=== PATIENT | male | born 1955 | race Caucasian/White ===

== ENCOUNTER → 2018-06-24 | Outpatient (CLI) | payer OTHER ==
--- NOTE | 2018-06-25 07:57 | US ---
EXAMINATION TYPE: US thyroid st tissue head/neck DATE OF EXAM: 06/24/2018 COMPARISON: NONE CLINICAL HISTORY: R22 Lump left side of neck/cheek. Palpable lump left lateral cheek x many years TECHNIQUE/FINDINGS: Targeted ultrasound in the region of the patient's palpable abnormality over the left parotid region was performed. Solid lesion left lateral cheek at area of palpable= 6.2 x 2.8 x 5.5 cm, minimal amoun t of internal vascular flow. This appears well-circumscribed and heterogenous in echotexture. IMPRESSION: At the palpable abnormality in the region of the parotid gland there is a solid 6.[address] neck w con is recommended for further evaluation.
== END | disposition home or self-care (01) ==
LOC: RADUSWWP 16:05
PROVIDERS: ATTEND Family Medicine
DX: K11.8 Other diseases of salivary glands (principal)
CPT/HCPCS: 76536

== ENCOUNTER → 2018-06-25 | Outpatient (CLI) | payer OTHER ==
[2018-06-25 14:02] LABS: Anion Gap 10 mmol/L; Blood Urea Nitrogen 25 mg/dL (9-20); Carbon Dioxide 27 mmol/L (22-30); Chloride 102 mmol/L (98-107); Potassium 5.1 mmol/L (3.5-5.1); Sodium 139 mmol/L (137-145)
[2018-06-25 14:32] LABS: Prostate Specific Antigen 1.74 ng/mL (0.00-4.00)
--- NOTE | 2018-06-25 14:54 | CT ---
EXAMINATION TYPE: CT soft tissue neck w con DATE OF EXAM: 06/25/2018 COMPARISON: HISTORY: benign neoplasm of parotid gland CT DLP: 755 mGycm CONTRAST: CT scan of the neck is performed with IV Contrast, patient injected with 100 ml mL of Isovue 300. Contrast enhanced CT of the neck was performed from the skull base through the lung apices. AIRWAY: The supraglottic, glottic, and subglottic portions of the airway appear patent and free of mass. SALIVARY GLANDS: Fat-containing mass adjacent to or arising from the superficial lobe of the left par otid gland measuring 6.7 x 5.1 x 3.5 cm. Internal foci of nodularity identified. Findings likely refl ect lipoma although liposarcoma is difficult to exclude. The right parotid gland is unremarkable and free of nodule. There is mass effect upon the adjacent masseter musculature as well as a portions of the parotid gland. The submandibular are free of mass or inflammatory process. THYROID GLAND: No nodules or masses seen. LYMPH NODES: No adenopathy seen greater than 1cm. LUNG APICES: No nodule or mass is seen. OTHER: Vascular structures are patent. Degenerative changes are noted of the cervical spine. No absc ess seen. Mild mucosal thickening ethmoid air cells. IMPRESSION: 1.Fat-containing mass adjacent to or arising from the superficial lobe of the left parotid gland stephani uring 6.7 x 5.1 x 3.5 cm. Internal foci of nodularity identified. 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
[2018-06-25 22:41] LABS: Hemoglobin A1C 9.5 % (4.0-6.0)
== END ==
LOC: RADCTMAIN 12:58
PROVIDERS: ATTEND Family Medicine
DX: D11.0 Benign neoplasm of parotid gland (principal); I10 Essential (primary) hypertension; Z79.899 Other long term (current) drug therapy
CPT/HCPCS: 84153; 80051; 82565; 84443; 84520; 83036; 70491; 36415; Q9967

== ENCOUNTER 2018-09-15 07:51 | Day surgery (SDC) | payer OTHER, MEDICARE ==
[2018-09-13 08:38] VITALS: BMI 27.8
[~2018-09-15 07:51] MED LIST: DEXAMETHASONE SOD PHOSPHATE 10 MG/ML 1 ML VIAL IV ONE; DEXAMETHASONE SOD PHOSPHATE 4 MG/ML 1 ML VIAL IV ONE; FAMOTIDINE 20 MG/2 ML VIAL IV ONE; HYDROmorphone 0.5 MG/0.5 ML SYRINGE IVP PRN; LACTATED RINGERS 1,000 ML IV SCH; LIDOCAINE 1% 20 ML VIAL (10MG/ML) FOR IV START INTRADERMA PRN; MIDAZOLAM (PF) 2 MG/2 ML VIAL IV PRN; ONDANSETRON 4 MG/2 ML VIAL IVP ONE; SCOPOLAMINE 1.5MG/72HR PATCH TRANSDERM ONE; ceFAZolin 1,000 MG in DEXTROSE/WATER 1 50ML.BAG IV ONE
[2018-09-15 09:29] LABS: Glucose,Whole Blood 276 mg/dL (75-99)
[2018-09-15] MEDS ORDERED: INSULIN ASPART 100 UNIT/ML 1 ML 10 ML VIAL SQ ONE (09:35)
[2018-09-15] MEDS ORDERED: MIDAZOLAM 2 MG/2 ML VIAL ONE (09:55)
[2018-09-15] MEDS ORDERED: fentaNYL (PF) 50 MCG/ML 2 ML AMP ONE (09:55)
[2018-09-15] MEDS ORDERED: PROPOFOL 10 MG/ML 20 ML VIAL IV ONE (09:55)
[2018-09-15] MEDS ORDERED: LIDOCAINE 1% INJ 10MG/ML (20 ML MDV) ONE (09:55)
[2018-09-15] MEDS ORDERED: SUCCINYLCHOLINE CHLORIDE 100 MG/5 ML SYR IV ONE (09:55)
[2018-09-15] MEDS ORDERED: LIDOCAINE 1%-EPI 1:100,000 20 ML VIAL SQ ONE ×2 (10:23)
[2018-09-15] MEDS ORDERED: BACITRACIN 500 UNIT/GM OINT 28.4 GM TUBE TOPICAL ONE (11:02)
--- NOTE | 2018-09-15 11:07 | P.OP ---
Date of Procedure: 09/15/18 Preoperative Diagnosis: Left cheek lipoma Postoperative Diagnosis: Same Procedure(s) Performed: Excision left cheek lipoma 6.5 x 5.5 cm with facial nerve identification and dissection and complex closure and with EMG facial nerve monitoring Anesthesia: RAN Surgeon: Jose Antonio Sky Estimated Blood Loss (ml): 5 Pathology: other (Left cheek mass) Condition: stable Disposition: PACU Indications for Procedure: This is a 62-year-old white male with a long history of left cheek mass. He's had computed tomography scan which is consistent with a large lipoma Operative Findings: There is a large lipoma 6.5 x 5.5 cm of the left lower cheek. This was down to the muscular layer. The facial nerves were able to be visualized and dissected and left intact Description of Procedure: The patient was brought in the operative suite and placed in a supine position. The patient underwent induction of general anesthesia with oral endotracheal intubation without difficulty. The patient was prepped and draped in usual aseptic fashion. 1% lidocaine with 1-100,000 epinephrine was infused subcutaneously overlying the mass at the incision site. This was left to work for 7 minutes vasoconstrictive effect. An incision was made over the mass in the direction of the right skin tension lines and carried sharply through the skin and subcutaneous tissue to the mass itself. This appeared to be a lipoma which appeared well encapsulated. This was then dissected off the lateral aspect and was dissected from lateral to medial. Once the medial aspect was identified superiorly and inferiorly the medial aspect was dissected from posterior to anterior identifying the lower divisions of the facial nerve. To the mass which were dissected from the overlying mass. Mass was excised grossly entirely. Note the NIM II facial monitor had been positioned to monitor the lower lip as well as the upper lip divisions of the facial nerve preoperatively and was working well. At the conclusion of the dissection the lower divisions of the facial nerve were stimulated 0.5 mA with good mobility of the upper and lower lips. Excellent hemostasis was noted. The wound was copiously irrigated sterile normal saline and hemostasis remained good. Due to the large size of this lesion there was redundant skin which was excised requiring a more complex closure in the deep subcutaneous layer and superficial subcutaneous layer closures with inverted interrupted 5-0 Vicryl suture and skin closed with running locking 5-0 Prolene suture. Bacitracin ointment and a sterile dressing were placed. The patient tolerated the procedure well and was extubated in the operating suite and transferred to postop recovery area in satisfactory condition.
[2018-09-15 11:13] VITALS: TEMP 96.8
[2018-09-15 11:30] VITALS: RESP 18
[2018-09-15] MEDS ORDERED: INSULIN REGULAR 100 UNIT/ML VIAL SQ ONE (11:32)
[2018-09-15 11:34] LABS: Glucose,Whole Blood 234 mg/dL (75-99)
[2018-09-15] MEDS ORDERED: LACTATED RINGERS 1,000 ML IV ONE (11:44)
[2018-09-15 12:21] VITALS: BP 121/70; PULSE 65
== END 2018-09-15 13:20 | disposition home or self-care (01) ==
LOC: OR 07:51
PROVIDERS: ATTEND Otolaryngology
DX: D17.0 Benign lipomatous neoplasm of skin and subcutaneous tissue of head, face and neck (principal); J30.1 Allergic rhinitis due to pollen; E11.9 Type 2 diabetes mellitus without complications; Z72.0 Tobacco use; Z79.84 Long term (current) use of oral hypoglycemic drugs
CPT/HCPCS: 88304; 21012; J2250; J1100; J2405; J2001; J3010; J0690; J0330; J2704

== ENCOUNTER 2019-09-30 11:19 | Observation (INO) | payer OTHER, MEDICARE ==
[2019-09-30] MEDS: FUROSEMIDE 10 MG/ML 4 ML VIAL IV SCH (14:24)
[2019-09-30] MEDS: HYDROcodone/APAP 5-325MG 1 EACH TAB PO PRN ×2 (14:25→20:35)
[2019-09-30 14:55] LABS: Basophils # (A) 0.1 k/uL (0-0.2); Basophils % (A) 1 %; Eosinophils # (A) 0.1 k/uL (0-0.7); Eosinophils % (A) 1 %; HCT 47.9 % (39.0-53.0); HGB 15.6 gm/dL (13.0-17.5); Lymphocytes # (A) 1.7 k/uL (1.0-4.8); Lymphocytes % (A) 20 %; MCH 30.2 pg (25.0-35.0); MCHC 32.7 g/dL (31.0-37.0); MCV 92.5 fL (80.0-100.0); Mean Platelet Volume 9.8; Monocytes # (A) 0.6 k/uL (0-1.0); Monocytes % (A) 7 %; Neutrophils # (A) 5.9 k/uL (1.3-7.7); Neutrophils % (A) 69 %; Platelet Count 206 k/uL (150-450); RBC 5.17 m/uL (4.30-5.90); RDW 13.9 % (11.5-15.5); WBC 8.5 k/uL (3.8-10.6)
[2019-09-30 15:05] LABS: ALT 20 U/L (4-49); AST 19 U/L (17-59); African American GFR (CKD) >90 (>60 ml/min/1.73 sqM); Albumin 3.5 g/dL (3.5-5.0); Alkaline Phosphatase 106 U/L (38-126); Anion Gap 6 mmol/L; Blood Urea Nitrogen 19 mg/dL (9-20); Calcium 8.5 mg/dL (8.4-10.2); Carbon Dioxide 27 mmol/L (22-30); Chloride 104 mmol/L (98-107); Glucose 154 mg/dL (74-99); Non-African American GFR(CKD) >90 (>60 ml/min/1.73 sqM); Potassium 4.3 mmol/L (3.5-5.1); Sodium 137 mmol/L (137-145); Total Bilirubin 0.7 mg/dL (0.2-1.3); Total Protein 6.2 g/dL (6.3-8.2)
--- NOTE | 2019-09-30 15:49 | US ---
EXAMINATION TYPE: US venous doppler duplex LE DATE OF EXAM: 09/30/2019 3:25 PM COMPARISON: NONE CLINICAL HISTORY: edema. SIDE PERFORMED: TECHNIQUE: The lower extremity deep venous system is examined utilizing real time linear array sonog karl with graded compression, doppler sonography and color-flow sonography. VESSELS IMAGED: External Iliac Vein (EIV) Common Femoral Vein Deep Femoral Vein Greater Saphenous Vein * Femoral Vein Popliteal Vein Small Saphenous Vein * Proximal Calf Veins (* superficial vessels) Right Leg: Negative for DVT Unable to compress mid and distal femoral vein due to patient tolerance. Left Leg: Negative for DVT Grayscale, color doppler, spectral doppler imaging performed of the deep veins of the bilateral lower extremities. There is normal flow and vascular waveforms. IMPRESSION: Slightly suboptimal as patient does not tolerate complete right lower extremity compress ion. There is asymmetric mild to moderate subcutaneous edema in the right lower extremity beginning p roximal popliteal level noted. No ultrasound evidence for acute DVT in either lower extremity.
[2019-09-30] MEDS: GLIMEPIRIDE 4 MG TAB PO SCH (17:20)
[2019-09-30] MEDS: REPAGLINIDE 1 MG TAB PO SCH (17:20)
--- NOTE | 2019-09-30 18:21 | XR ---
EXAMINATION TYPE: XR chest 2V DATE OF EXAM: 09/30/2019 COMPARISON: NONE HISTORY: Short of breath. Heart failure. TECHNIQUE: FINDINGS: There is some coarsening of the interstitial lung markings. There is no pleural effusion. T horacic aorta is atheromatous. There are no hilar masses. Bony thorax is intact. IMPRESSION: Mild pulmonary fibrosis. No obvious heart failure. Atheromatous aorta.
[2019-09-30 19:42] VITALS: PULSE 71
[2019-09-30] MEDS: ATENOLOL 25 MG TAB PO SCH (20:36)
[2019-10-01] MEDS: FUROSEMIDE 10 MG/ML 4 ML VIAL IV SCH (02:59)
[2019-10-01] MEDS: HYDROcodone/APAP 5-325MG 1 EACH TAB PO PRN ×2 (03:18→09:25)
[2019-10-01 06:37] VITALS: BP 117/74; RESP 17; TEMP 97.6
[2019-10-01 07:29] LABS: Glucose,Whole Blood 129 mg/dL (75-99)
[2019-10-01 08:25] LABS: Basophils # (A) 0.1 k/uL (0-0.2); Basophils % (A) 1 %; Eosinophils # (A) 0.1 k/uL (0-0.7); Eosinophils % (A) 1 %; HCT 46.5 % (39.0-53.0); HGB 15.7 gm/dL (13.0-17.5); Lymphocytes # (A) 1.6 k/uL (1.0-4.8); Lymphocytes % (A) 20 %; MCH 30.6 pg (25.0-35.0); MCHC 33.7 g/dL (31.0-37.0); MCV 90.8 fL (80.0-100.0); Mean Platelet Volume 9.7; Monocytes # (A) 0.6 k/uL (0-1.0); Monocytes % (A) 8 %; Neutrophils # (A) 5.6 k/uL (1.3-7.7); Neutrophils % (A) 69 %; Platelet Count 240 k/uL (150-450); RBC 5.13 m/uL (4.30-5.90); RDW 13.9 % (11.5-15.5); WBC 8.1 k/uL (3.8-10.6)
[2019-10-01 08:36] LABS: ALT 20 U/L (4-49); AST 18 U/L (17-59); African American GFR (CKD) >90 (>60 ml/min/1.73 sqM); Albumin 3.6 g/dL (3.5-5.0); Alkaline Phosphatase 107 U/L (38-126); Anion Gap 7 mmol/L; Blood Urea Nitrogen 17 mg/dL (9-20); Calcium 8.9 mg/dL (8.4-10.2); Carbon Dioxide 29 mmol/L (22-30); Chloride 102 mmol/L (98-107); Glucose 127 mg/dL (74-99); Non-African American GFR(CKD) >90 (>60 ml/min/1.73 sqM); Potassium 4.2 mmol/L (3.5-5.1); Sodium 138 mmol/L (137-145); Total Bilirubin 1.1 mg/dL (0.2-1.3); Total Protein 6.6 g/dL (6.3-8.2)
[2019-10-01] MEDS: ATENOLOL 25 MG TAB PO SCH (08:40)
[2019-10-01] MEDS: REPAGLINIDE 1 MG TAB PO SCH ×2 (08:40→13:00)
[2019-10-01] MEDS: GLIMEPIRIDE 4 MG TAB PO SCH (08:40)
[2019-10-01] MEDS ORDERED: MONTELUKAST 10 MG TAB PO SCH (09:00)
[2019-10-01] MEDS ORDERED: LORATADINE 10 MG TAB PO SCH (09:00)
[2019-10-01 11:31] LABS: Glucose,Whole Blood 167 mg/dL (75-99)
--- NOTE | 2019-10-01 12:18 | HP ---
HISTORY AND PHYSICAL A 63-year-old white male admitted with significant right leg swelling, greater than left leg swelling status post injury 1-2 weeks ago. Large amount of bruising in the leg. The right leg is twice as large as the other leg. We admitted him with some diastolic CHF and start him on IV Lasix and do ultrasound to rule out PE which was negative. ACTIVE MEDICATIONS: Includes Tenormin 25 b.i.d., Lasix 40 IV q.12, Amaryl 400 mg a.c. b.i.d.. He takes [place] 5/325 every 6 hours, Claritin 10 daily, Singulair 10 daily, Prandin 1 mg a.c. t.i.d. REVIEW OF SYSTEMS: Negative except he cannot walk on his right leg. He says he was at [facility], needed x- rays on his hips, which showed no fracture. PAST MEDICAL HISTORY: Diabetes, hypertension, diastolic CHF, allergic rhinitis. Temperature 98.2, pulse is 70s, respiratory 17 to 18, blood pressure 117 to 146/70s to 80s, 95% on room air. CARDIOVASCULAR: S1, S2. LUNGS: Show decreased breath sounds x4. HEMATOLOGY: Negative Homans. PSYCH: Fair mood and affect. MUSCULOSKELETAL: Shows limited ambulation on the right leg due to severe pain and swelling. He has large hematoma with bruising up and down his entire leg. Right leg is twice as big as his left leg. He is able to lift both legs off the floor though. ASSESSMENT: 1. Diastolic congestive heart failure, acute on chronic. 2. Chronic obstructive pulmonary disease. 3. Diabetes mellitus. 4. Hypertension. 5. Right leg injury with large hematoma to the entire leg. The patient will be discharged home on oral medication to follow up as an outpatient. MMODL / IJN: [id number] /
--- NOTE | 2019-10-02 13:59 | ECHOF ---
Referral Reason:chf MEASUREMENTS -------- HEIGHT: 180.3 cm WEIGHT: 90.7 kg BP: 154/82 IVSd: 1.4 cm (0.6 - 1.1) LVIDd: 5.1 cm (3.9 - 5.3) LVPWd: 1.3 cm (0.6 - 1.1) IVSs: 1.8 cm LVIDs: 4.0 cm LVPWs: 1.9 cm RVIDd: 4.1 cm (< 3.3) LAESV Index (A-L): 27.70 ml/m Ao Diam: 3.9 cm (2.0 - 3.7) LA Diam: 4.6 cm (2.7 - 3.8) AV Cusp: 2.1 cm (1.5 - 2.6) EPSS: 1.4 cm MV E Brooks: 0.91 m/s MV DecT: 287 ms MV A Brooks: 1.13 m/s MV E/A Ratio: 0.81 RAP: 20.00 mmHg RVSP: 30.12 mmHg MV EF SLOPE: 52.23 mm/s (70 - 150) MV EXCURSION: 12.65 mm (> 18.000) FINDINGS -------- Sinus rhythm. This was a technically adequate study. The left ventricular size is normal. There is mild concentric left ventricular hypertrophy. Overa ll left ventricular systolic function is low-normal with, an EF between 50 - 55 %. The diastolic fi lling pattern is normal for the age of the patient 16.83. The right ventricle is moderately enlarged. Normal LA size by volume 22+/-6 ml/m2. The right atrium is moderately enlarged. Interatrial and interventricular septum intact. There is no evidence of aortic regurgitation. There is no evidence of aortic stenosis. Jiru-uh-fahadkmw mitral regurgitation is present. Mild tricuspid regurgitation present. There is borderline pulmonary artery hypertension. The righ t ventricular systolic pressure, as measured by Doppler, is 30.12mmHg. There is no pulmonic regurgitation present. The aortic root size is normal. The inferior vena cava is dilated with poor inspiratory collapse which is consistent with estimated r ight atrial pressure of 20 mmHg. There is no pericardial effusion. CONCLUSIONS -------- 1. Sinus rhythm. 2. This was a technically adequate study. 3. The left ventricular size is normal. 4. There is mild concentric left ventricular hypertrophy. 5. Overall left ventricular systolic function is low-normal with, an EF between 50 - 55 %. 6. The diastolic filling pattern is normal for the age of the patient 16.83 7. The right ventricle is moderately enlarged. 8. Normal LA size by volume 22+/-6 ml/m2. 9. The right atrium is moderately enlarged. 10. Interatrial and interventricular septum intact. 11. There is no evidence of aortic regurgitation. 12. There is no evidence of aortic stenosis. 13. Enhk-uh-qbttculp mitral regurgitation is present. 14. Mild tricuspid regurgitation present. 15. There is borderline pulmonary artery hypertension. 16. The right ventricular systolic pressure, as measured by Doppler, is 30.12mmHg. 17. There is no pulmonic regurgitation present. 18. The aortic root size is normal. 19. The inferior vena cava is dilated with poor inspiratory collapse which is consistent with estimat ed right atrial pressure of 20 mmHg. 20. There is no pericardial effusion. P[employer]AT[employer]IP [employer]KER: Tika Martino RDCS
== END 2019-10-01 13:12 | disposition home or self-care (01) ==
LOC: 6NMEDSUR 11:35 → INTOOBSV 11:35 → UNDODISIN 10-01 13:12
PROVIDERS: ADMIT Family Medicine; ATTEND Family Medicine
DX: I11.0 Hypertensive heart disease with heart failure (principal); I50.33 Acute on chronic diastolic (congestive) heart failure; E11.9 Type 2 diabetes mellitus without complications; J44.9 Chronic obstructive pulmonary disease, unspecified; J84.10 Pulmonary fibrosis, unspecified; J30.9 Allergic rhinitis, unspecified; S80.10XA Contusion of unspecified lower leg, initial encounter; X58.XXXA Exposure to other specified factors, initial encounter
CPT/HCPCS: 96376; 96374; 93306; 93005; 85379; 83880; 80053 ×2; 85025 ×2; 71046; 93970; G0379; G0378 ×2; J1940 ×2

== ENCOUNTER → 2019-10-05 | Outpatient (CLI) | payer OTHER, MEDICARE ==
[2019-10-05 16:43] LABS: African American GFR (CKD) >90 (>60 ml/min/1.73 sqM); Blood Urea Nitrogen 21 mg/dL (9-20); Non-African American GFR(CKD) >90 (>60 ml/min/1.73 sqM)
--- NOTE | 2019-10-05 21:25 | CT ---
EXAMINATION TYPE: CT chest w con DATE OF EXAM: 10/05/2019 COMPARISON: Chest x-ray 5 days ago. HISTORY: SOB CT DLP: 501.6 mGycm. Automated Exposure Control for Dose Reduction was Utilized. TECHNIQUE: CT scan of the thorax is performed following with IV Contrast, patient injected with 100 mL of Isovue 300. FINDINGS: LUNGS: Mild to moderate underlying emphysematous change most prominent in lung apices is seen with mi ld to moderate biapical pleural/parenchymal scarring. In addition there is 8 x 7 mm right upper lobe pulmonary nodule axial image 15. There is a 9 x 6 mm left lower lobe posterior nodule axial image 46. There is mild to moderate linear scarring and/or atelectasis in both bases near diaphragm. No pleura l effusion or pneumothorax is evident bilaterally. MEDIASTINUM: There are no greater than 1 cm hilar or mediastinal lymph nodes. No cardiomegaly or pe ricardial effusion is seen. OTHER: Slight S-shaped scoliotic curvature with mild to moderate multilevel spurring in the spine. IMPRESSION: Mild to moderate emphysematous change with fairly moderate scattered fibrosis. 2 nodules are noted as detailed above. Follow-up advised as per Fleischner Society recommendations. Multiple solid nodules >6 mm (>100 mm3) * low-risk patients: CT at 3-6 months, then consider CT at 18-24 months * high-risk patients: CT at 3-6 months, then CT at 18-24 months
== END | disposition home or self-care (01) ==
LOC: RADCTMAIN 16:05
PROVIDERS: ATTEND Family Medicine
DX: J43.9 Emphysema, unspecified (principal); J84.10 Pulmonary fibrosis, unspecified; R91.8 Other nonspecific abnormal finding of lung field; R06.02 Shortness of breath
CPT/HCPCS: 82565; 84520; 71260; 36415; Q9967

== ENCOUNTER 2019-10-06 13:07 | Emergency (ER) | payer MEDICARE, OTHER ==
[2019-10-06 13:12] VITALS: TEMP 97.5
[2019-10-06] MEDS ORDERED: ONDANSETRON 4 MG/2 ML VIAL IVP STA (13:33)
[2019-10-06] MEDS ORDERED: HYDROmorphone 1 MG/ML 1 ML SYRINGE IVP STA (13:33)
[2019-10-06 13:41] LABS: Basophils # (A) 0.2 k/uL (0-0.2); Basophils % (A) 2 %; Eosinophils # (A) 0.1 k/uL (0-0.7); Eosinophils % (A) 1 %; HCT 47.8 % (39.0-53.0); HGB 16.3 gm/dL (13.0-17.5); Lymphocytes # (A) 1.3 k/uL (1.0-4.8); Lymphocytes % (A) 16 %; MCH 31.1 pg (25.0-35.0); MCHC 34.1 g/dL (31.0-37.0); MCV 91.2 fL (80.0-100.0); Mean Platelet Volume 9.1; Monocytes # (A) 0.6 k/uL (0-1.0); Monocytes % (A) 7 %; Neutrophils # (A) 5.9 k/uL (1.3-7.7); Neutrophils % (A) 72 %; Platelet Count 281 k/uL (150-450); RBC 5.24 m/uL (4.30-5.90); RDW 13.7 % (11.5-15.5); WBC 8.2 k/uL (3.8-10.6)
[2019-10-06 13:46] LABS: INR 1.1 (<1.2); Partial Thromboplastin Time 24.8 sec (22.0-30.0); Prothrombin Time 11.4 sec (9.0-12.0)
[2019-10-06 13:59] LABS: ALT 19 U/L (4-49); AST 17 U/L (17-59); African American GFR (CKD) >90 (>60 ml/min/1.73 sqM); Albumin 3.8 g/dL (3.5-5.0); Alkaline Phosphatase 125 U/L (38-126); Anion Gap 8 mmol/L; Blood Urea Nitrogen 21 mg/dL (9-20); Carbon Dioxide 25 mmol/L (22-30); Chloride 104 mmol/L (98-107); Glucose 165 mg/dL (74-99); Non-African American GFR(CKD) >90 (>60 ml/min/1.73 sqM); Potassium 4.6 mmol/L (3.5-5.1); Sodium 137 mmol/L (137-145); Total Protein 7.1 g/dL (6.3-8.2)
--- NOTE | 2019-10-06 14:18 | ED ---
Fall HPI - General Chief Complaint: Fall Stated Complaint: fall Time Seen by Provider: 10/06/19 13:13 Source: patient, RN notes reviewed Mode of arrival: ambulatory Limitations: no limitations - History of Present Illness Initial Comments: This a 63-year-old male presents emergency Department chief complaint of right leg, right foot pain. Patient states that he had a fall on 09/15/2019. Patient states that he was seen at [facility] had x-rays of his hip because he complained of hip pain. Patient states x-rays were negative patient had pers istent right leg pain. He had a recent hospitalization to rule out possible PE, DVT or congestive heart failure he states that every came back normal and he was discharged she is currently taking gabapentin and [place] states is not cutting the pain at this time. He states is continuation of bruising, swelling and redness. He reports no fevers or chills. Patient has no complaints of paresthesias no bowel, bladder incontinence or retention. Patient did contact his PCP who advised him come back to the emergency Department - Related Data Home Medications Medication Instructions Recorded Confirmed Atenolol [Tenormin] 25 mg PO BID 09/30/19 09/30/19 Glimepiride [Amaryl] 4 mg PO BID 09/30/19 09/30/19 Ibuprofen [Motrin] 800 mg PO Q6H PRN 09/30/19 09/30/19 Loratadine [Claritin] 10 mg PO DAILY 09/30/19 09/30/19 Montelukast [Singulair] 10 mg PO DAILY 09/30/19 09/30/19 Repaglinide [Prandin] 1 mg PO AC-TID 09/30/19 09/30/19 Previous Rx's Medication Instructions Recorded Cephalexin [Keflex] 500 mg PO Q6HR #28 cap 10/06/19 HYDROcodone/APAP 10-325MG [[place] 1 tab PO Q6H PRN #12 tab 10/06/19 10-325] Ibuprofen [Motrin] 800 mg PO Q6HR #30 tab 10/06/19 Allergies Allergy/AdvReac Type Severity Reaction Status Date / Time No Known Allergies Allergy Verified 10/06/19 13:12 Review of Systems ROS Statement: Those systems with pertinent positive or pertinent negative responses have been documented in the HPI. ROS Other: All systems not noted in ROS Statement are negative. Past Medical History Past Medical History: Diabetes Mellitus, Hypertension Additional Past Medical History / Comment(s): NIDDM type II, hiatal hernia History of Any Multi-Drug Resistant Organisms: None Reported Additional Past Surgical History / Comment(s): Excision L lacial lipoma Past Anesthesia/Blood Transfusion Reactions: No Reported Reaction Past Psychological History: No Psychological Hx Reported Smoking Status: Current every day smoker Past Alcohol Use History: None Reported Past Drug Use History: None Reported - Past Family History Mother Family Medical History: Cancer Additional Family Medical History / Comment(s): Mother of lung cancer. She was a nonsmoker. Father History Unknown: Yes General Exam Limitations: no limitations General appearance: alert, in no apparent distress Head exam: Present: atraumatic, normocephalic, normal inspection Eye exam: Present: normal appearance, PERRL, EOMI. Absent: scleral icterus, conjunctival injection, periorbital swelling ENT exam: Present: mucous membranes moist. Absent: normal oropharynx (Edentulous) Respiratory exam: Present: normal lung sounds bilaterally. Absent: respiratory distress, wheezes, rales, rhonchi, stridor Cardiovascular Exam: Present: regular rate, normal rhythm, normal heart sounds. Absent: systolic murmur, diastolic murmur, rubs, gallop, clicks Extremities exam: Present: other (Right leg there is extensive swelling there is moderate swelling on the left, pedal pulses equal bilaterally 1+, there is some erythema increased warmth the lower right leg there is ecchymosis of the right foot and digits there is no hip tenderness full range motion at the hip) Neurological exam: Present: alert, oriented X3, reflexes normal. Absent: motor sensory deficit Skin exam: Present: warm, dry, intact, normal color. Absent: rash Course Vital Signs 10/06/19 13:10 Temperature 97.5 F L Pulse Rate 72 Respiratory 20 Rate Blood Pressure 151/87 O2 Sat by Pulse 99 Oximetry Medical Decision Making - Medical Decision Making Patient repeat ultrasound which is negative for acute DVT x-rays of the tib-fib, foot are negative for acute fracture. Patient labwork review no shortening major abnormality's. Patient does have persistent swelling and pain from the fall he also has some areas of erythema concern for lower extremity cellulitis. Patient provided pain medication, antibiotics with close follow-up return pa rameters were discussed. - Lab Data Result diagrams: 10/06/19 13:27 10/06/19 13:27 Lab Results 10/06/19 10/06/19 10/06/19 Range/Units 13:27 13:27 13:27 WBC 8.2 (3.8-10.6) k/uL RBC 5.24 (4.30-5.90) m/uL Hgb 16.3 (13.0-17.5) gm/dL Hct 47.8 (39.0-53.0) % MCV 91.2 (80.0-100.0) fL MCH 31.1 (25.0-35.0) pg MCHC 34.1 (31.0-37.0) g/dL RDW 13.7 (11.5-15.5) % Plt Count 281 (150-450) k/uL Neutrophils % 72 % Lymphocytes % 16 % Monocytes % 7 % Eosinophils % 1 % Basophils % 2 % Neutrophils # 5.9 (1.3-7.7) k/uL Lymphocytes # 1.3 (1.0-4.8) k/uL Monocytes # 0.6 (0-1.0) k/uL Eosinophils # 0.1 (0-0.7) k/uL Basophils # 0.2 (0-0.2) k/uL PT 11.4 (9.0-12.0) sec INR 1.1 (<1.2) APTT 24.8 (22.0-30.0) sec Sodium 137 (137-145) mmol/L Potassium 4.6 (3.5-5.1) mmol/L Chloride 104 (98-107) mmol/L Carbon Dioxide 25 (22-30) mmol/L Anion Gap 8 mmol/L BUN 21 H (9-20) mg/dL Creatinine 0.59 L (0.66-1.25) mg/dL Est GFR (CKD-EPI)AfAm >90 (>60 ml/min/1.73 sqM) Est GFR (CKD-EPI)NonAf >90 (>60 ml/min/1.73 sqM) Glucose 165 H (74-99) mg/dL Calcium 9.0 (8.4-10.2) mg/dL Total Bilirubin 1.0 (0.2-1.3) mg/dL AST 17 (17-59) U/L ALT 19 (4-49) U/L Alkaline Phosphatase 125 (38-126) U/L Total Protein 7.1 (6.3-8.2) g/dL Albumin 3.8 (3.5-5.0) g/dL Disposition Clinical Impression: Fall, Right leg pain, Cellulitis of right leg Disposition: HOME SELF-CARE Condition: Stable Instructions (If sedation given, give patient instructions): Leg Pain (ED) Additional Instructions: Please return to the Emergency Department if symptoms worsen or any other concerns. Prescriptions: Cephalexin [Keflex] 500 mg PO Q6HR #28 cap Ibuprofen [Motrin] 800 mg PO Q6HR #30 tab HYDROcodone/APAP 10-325MG [[place] 10-325] 1 tab PO Q6H PRN #12 tab PRN Reason: pain Is patient prescribed a controlled substance at d/c from ED?: Yes When asked, does pt state using other controlled substances?: Yes If prescribed controlled substance>3 days was MAPS reviewed?: Prescribed <3 Days If opioid is for acute pain is fill amount 7 days or less?: Yes If Rx opioid, was Start Talking consent form obtained?: Yes Referrals: Jeremy Atkinson MD [Primary Care Provider] - 1-2 days Time of Disposition: 15:12
--- NOTE | 2019-10-06 14:19 | XR ---
EXAMINATION TYPE: XR foot complete RT, XR tibia fibula RT DATE OF EXAM: 10/06/2019 CLINICAL HISTORY: Fall with subsequent right foot and lower extremity pain TECHNIQUE: Frontal, lateral and oblique images of the right foot were obtained as well as 2 views of the right tibia and fibula. COMPARISON: None. FINDINGS: There is no acute fracture or dislocation evident in the right foot. The joint spaces in the right foot are preserved. Overlying soft tissue is unremarkable. There is no acute fracture or dislocation seen in the right tibia or fibula. The right knee and ankle joints appear within normal limits. The overlying soft tissue demonstrates diffuse subcutaneous edema that is mild there are sm all Achilles and plantar heel spurs seen. IMPRESSION: 1. No acute fracture or dislocation in the right foot. 2. No acute fracture or dislocation seen in the right tibia or fibula. 3. Diffuse mild circumferential soft tissue swelling of the right lower extremity.
--- NOTE | 2019-10-06 14:57 | US ---
EXAMINATION TYPE: US venous doppler duplex LE RT DATE OF EXAM: 10/06/2019 2:43 PM COMPARISON: NONE CLINICAL HISTORY: pain. right foot pain since 09/15/2019, no h/o dvt SIDE PERFORMED: Right TECHNIQUE: The lower extremity deep venous system is examined utilizing real time linear array sonog karl with graded compression, doppler sonography and color-flow sonography. VESSELS IMAGED: External Iliac Vein (EIV) Common Femoral Vein Deep Femoral Vein Greater Saphenous Vein * Femoral Vein Popliteal Vein Small Saphenous Vein * Proximal Calf Veins (* superficial vessels) Grayscale, color doppler, spectral doppler imaging performed of the deep veins of the right lower ext remity. There is normal flow, compressibility, vascular waveforms. There is subcutaneous edema. Right Leg: Appears negative for DVT IMPRESSION: No sonographic evidence of deep venous thrombosis within the right lower extremity. Subc utaneous edema is seen.
[2019-10-06] MEDS ORDERED: KETOROLAC 30 MG/ML 1 ML VIAL IVP STA (15:08)
[2019-10-06 15:23] VITALS: BP 136/78; PULSE 86; RESP 18
== END 2019-10-06 15:19 | disposition home or self-care (01) ==
LOC: EC 13:07
DX: L03.115 Cellulitis of right lower limb (principal); E11.9 Type 2 diabetes mellitus without complications; I10 Essential (primary) hypertension; F17.200 Nicotine dependence, unspecified, uncomplicated; Z79.84 Long term (current) use of oral hypoglycemic drugs; Z79.899 Other long term (current) drug therapy; Z91.81 History of falling
CPT/HCPCS: 36415; 80053; 85025; 85610; 85730; 73590; 73630; 93971; 99284; 96374; 96375 ×2; J2405; J1885; J1170

== ENCOUNTER → 2019-11-08 | Outpatient (CLI) | payer OTHER, MEDICARE ==
--- NOTE | 2019-11-08 15:18 | NM ---
EXAMINATION TYPE: NM bone 3 phase DATE OF EXAM: 11/08/2019 COMPARISON: NONE HISTORY: Osteomyelitis Triple phase bone scintigraphy was performed following the injection of 24.7 mCi Tc 99m MDP. Immedia te images and 3 hours post injection images acquired. FINDINGS: Blood flow: There appears to be essentially symmetrical blood flow on the left and right foot. Very s ubtle asymmetry with increased flow on the right would be difficult to exclude. Blood pool: Subtle asymmetry is present on the blood pool images is slightly greater radiotracer on t he right compared to the left on blood pool images. This is also present within the calf regions. The re is slightly more radiotracer on the left knee compared to the right on blood pool images. Static images: There is increased radiotracer accumulation along the lateral right knee joint space. There is increased radiotracer accumulation about the left knee the patella and medial compartment of the knee. There is increased radiotracer accumulation within the bilateral ankles and within the pro ximal metatarsal phalangeal joint spaces. This may be slightly greater on the right than the left. IMPRESSION: 1. Subtle changes of increased radiotracer blood flow blood pool within the right extremity compared to the left could indicate some mild soft tissue infection. 2. Radiotracer accumulation on static images appears more typical for degenerative changes. A triple focus of radiotracer to suggest osteomyelitis is not identified.
== END | disposition home or self-care (01) ==
LOC: RADNMMAIN 07:02
PROVIDERS: ATTEND Family Medicine
DX: I99.8 Other disorder of circulatory system (principal); M86.9 Osteomyelitis, unspecified
CPT/HCPCS: 78315; A9503

== ENCOUNTER → 2022-02-05 | Outpatient (CLI) | payer MEDICARE, OTHER ==
--- NOTE | 2022-02-05 14:55 | CT ---
EXAMINATION TYPE: CT lumbar spine wo con DATE OF EXAM: 02/05/2022 COMPARISON: HISTORY: chronic low back pain, no injury CT DLP: 1313 mGycm CONTRAST: None TECHNIQUE: CT of the lumbar spine is performed on a spiral scan at 3 mm thick sections. Reconstructed images are performed in the coronal and sagittal planes. FINDINGS: There is multilevel vacuum disc phenomenon. Mild diffuse disc space narrowing is present through the lumbar spine. Vertebral body heights appear preserved. No posterior wall displacement is evident. Spo ndylosis is present. Minimal disc bulge L2-3 is present with anterior thecal sac contact. No AP spinal canal stenosis is p resent. Minimal disc bulge is present L3-4 with anterior thecal sac flattening. Mild ligamentum flavum laxity is present. Canal narrowing is present without stenosis. Foraminal narrowing is present L2-3 through L5-S1. This is more stenotic than the lower through the l umbar spine. IMPRESSION: Multilevel degenerative disc changes with vacuum disc phenomenon lumbar spine. 2. Spondylosis. 3. Foraminal narrowing increasing in the lower lumbar spine.
== END | disposition home or self-care (01) ==
LOC: RADCTMAIN 14:07
PROVIDERS: ATTEND Family Medicine
DX: M51.26 Other intervertebral disc displacement, lumbar region (principal); M47.816 Spondylosis without myelopathy or radiculopathy, lumbar region; M99.73 Connective tissue and disc stenosis of intervertebral foramina of lumbar region
CPT/HCPCS: 72131

== ENCOUNTER → 2022-03-20 | Outpatient (CLI) | payer MEDICARE, OTHER ==
[2022-03-20 12:48] VITALS: BP 158/78; PULSE 58; RESP 18; TEMP 97.6
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
== END ==
LOC: PNWHC3 11:27
PROVIDERS: ATTEND Specialist
DX: M51.36 Other intervertebral disc degeneration, lumbar region (principal); M48.061 Spinal stenosis, lumbar region without neurogenic claudication; E11.9 Type 2 diabetes mellitus without complications; I10 Essential (primary) hypertension; F17.200 Nicotine dependence, unspecified, uncomplicated
CPT/HCPCS: 99211

== ENCOUNTER 2022-06-03 08:49 | Day surgery (SDC) | payer MEDICARE ==
[2022-06-02 11:09] VITALS: BMI 27.8
[~2022-06-03 08:49] MED LIST changes: -DEXAMETHASONE SOD PHOSPHATE 10 MG/ML 1 ML VIAL IV ONE; -DEXAMETHASONE SOD PHOSPHATE 4 MG/ML 1 ML VIAL IV ONE; -FAMOTIDINE 20 MG/2 ML VIAL IV ONE; -HYDROmorphone 0.5 MG/0.5 ML SYRINGE IVP PRN; +LIDOCAINE 1% (10MG/ML) FOR IV START INTRADERMA PRN; -LIDOCAINE 1% 20 ML VIAL (10MG/ML) FOR IV START INTRADERMA PRN; -MIDAZOLAM (PF) 2 MG/2 ML VIAL IV PRN; -ONDANSETRON 4 MG/2 ML VIAL IVP ONE; -SCOPOLAMINE 1.5MG/72HR PATCH TRANSDERM ONE; -ceFAZolin 1,000 MG in DEXTROSE/WATER 1 50ML.BAG IV ONE
[2022-06-03 09:42] VITALS: RESP 16; TEMP 97.4
[2022-06-03 09:50] LABS: Glucose,Whole Blood 154 mg/dL (70-110)
[2022-06-03] MEDS ORDERED: methylPREDNISolone ACETATE 40 MG/ML 1 ML VIAL ONE (09:54)
[2022-06-03] MEDS ORDERED: fentaNYL (PF) 50 MCG/ML 2 ML AMP ONE (09:54)
[2022-06-03] MEDS ORDERED: MIDAZOLAM 2 MG/2 ML VIAL ONE (09:54)
--- NOTE | 2022-06-03 10:14 | P.PCN ---
Date of Procedure: 06/03/22 Procedure(s) Performed: PREOPERATIVE DIAGNOSIS: 1-lumbar Spondylosis with Facet Arthropathy.without myelopathy. 2-myofascial pain syndrome lumbar area POSTOPERATIVE DIAGNOSIS: Same as preoperative diagnosis. PROCEDURES: Trigger pontine injections umber paraspinal muscles from L2-S1 (5 on the left side lumbar paraspinal muscles, And 3 trigger point on the right side Lumbar paraspinal muscles ) ANESTHESIA: Moderate sedation with Versed 1 mg and fentanyl 50 g Sedation start time 0 958. Sedation end time 1009 EBL: Minimal PROCEDURE INDICATION: The patient with low back pain secondary to myofascial pain syndrome PROCEDURE DESCRIPTION / TECHNIQUE: The patient was seen and identified in the preoperative area. Risks, benefits, complications, and alternatives were discussed with the patient, the patient agreed to proceed with the procedure and signed the consent. Vital signs remained stable throughout the procedure. Total of 5 trigger point identified in the left lumbar paraspinal muscles on the ,and 3 trigger point identified on the right side lumbar paraspinal muscles each one of them injected with mixture of ropivacaine 0.5% and Depo-Medrol 40 mg 2 mL injected at each trigger point after negative aspiration using 25-gauge needle injection done after negative aspiration under was no paresthesia during the injection, patient tolerated the procedure well without any complications COMPLICATIONS: No acute complications. DISPOSITION / PLANS: The patient was placed in a supine position and transferred to the recovery area in a stable condition for observation and was discharged from the recovery room after meeting discharge criteria. Home discharge instructions given to the patient by the staff. The patient was reexamined prior to discharge. The patient will schedule a follow up in the clinic in 2-4 weeks.
[2022-06-03] MEDS ORDERED: IV FLUID CONTINUATION 800 ML IV ONE (10:15)
[2022-06-03 10:45] VITALS: BP 131/70; PULSE 65
== END 2022-06-03 10:51 | disposition home or self-care (01) ==
LOC: ORPAIN 08:49
PROVIDERS: ATTEND Specialist
DX: M79.18 Myalgia, other site (principal); M47.816 Spondylosis without myelopathy or radiculopathy, lumbar region; M51.36 Other intervertebral disc degeneration, lumbar region
CPT/HCPCS: 20553; 99152; J2250; J1030; J3010

== ENCOUNTER 2022-06-17 13:12 | Observation (INO) | payer MEDICARE ==
--- NOTE | 2022-06-17 13:26 | ED ---
General Adult HPI - General Stated complaint: difficulty walking Time Seen by Provider: 06/17/22 13:15 Source: patient, RN notes reviewed, old records reviewed - History of Present Illness Initial comments: This is a 66-year-old male complains of 45 minutes prior to arrival he started having headache with some neck pain bilaterally near his skull. Patient states she also started having slurred speech and was confused. Patient states he was unable to understand what he was reading. Patient also states became very nauseated. Patient states since then the symptoms have slowly completely resolved. Patient denies having any symptoms at this time. Patient states in April he had a small intracranial bleed. Patient denies any recent fever chills or cough. Patient denies any chest pain difficulty breathing. Patient denies any abdominal pain patient denies any actual vomiting. - Related Data Home Medications Medication Instructions Recorded Confirmed Ibuprofen [Motrin] 800 mg PO Q6H PRN 09/30/19 06/03/22 Loratadine [Claritin] 10 mg PO DAILY 09/30/19 06/03/22 Montelukast [Singulair] 10 mg PO DAILY 09/30/19 06/03/22 Repaglinide [Prandin] 1 mg PO AC-TID 09/30/19 06/03/22 atenoloL [Tenormin] 50 mg PO BID 09/30/19 06/03/22 Aspirin [Adult Low Dose Aspirin EC] 81 mg PO DAILY 04/15/22 06/03/22 Atorvastatin [Lipitor] 40 mg PO DAILY 04/15/22 06/03/22 Clopidogrel [Plavix] 75 mg PO DAILY 04/15/22 06/03/22 Furosemide [Lasix] 40 mg PO DAILY 04/15/22 06/03/22 Gabapentin [Neurontin] 600 mg PO TID 04/15/22 06/03/22 Pioglitazone HCl 15 mg PO DAILY 04/15/22 06/03/22 Potassium Chloride [Klor-Con M10] 20 meq PO DAILY 04/15/22 06/03/22 glyBURIDE [Diabeta] 5 mg PO DAILY 04/15/22 06/03/22 Calcium Carbonate/Vitamin D3 1 each PO DAILY 06/02/22 06/03/22 [Calcium 600 mg-D3 10 Mcg (400 Iu)] Magnesium Oxide [Magnesium] 500 mg PO DAILY 06/02/22 06/03/22 rOPINIRole HCL [Requip] 1 mg PO TID 06/02/22 06/03/22 Previous Rx's Medication Instructions Recorded Acetaminophen-Codeine 300-30mg 1 tab PO Q4H PRN 3 Days #18 tablet 04/28/22 [Tylenol w/codeine #3] methocarbamoL [Robaxin] 500 mg PO BID PRN 30 Days #60 tab 04/30/22 Allergies Allergy/AdvReac Type Severity Reaction Status Date / Time No Known Allergies Allergy Verified 06/03/22 09:39 Review of Systems ROS Statement: Those systems with pertinent positive or pertinent negative responses have been documented in the HPI. ROS Other: All systems not noted in ROS Statement are negative. Past Medical History Past Medical History: Diabetes Mellitus, Hypertension Additional Past Medical History / Comment(s): NIDDM type II, hiatal hernia History of Any Multi-Drug Resistant Organisms: None Reported Additional Past Surgical History / Comment(s): Excision L Facial lipoma, Past Anesthesia/Blood Transfusion Reactions: No Reported Reaction Smoking Status: Current every day smoker - Past Family History Mother Family Medical History: Cancer Additional Family Medical History / Comment(s): Mother of lung cancer. Father History Unknown: Yes General Exam - General Exam Comments Initial Comments: GENERAL: Patient is well-developed and well-nourished. Patient is nontoxic and well- hydrated and is in no acute distress. ENT: Neck is soft and supple. No significant lymphadenopathy is noted. Oropharynx is clear. Moist mucous membranes. Neck has full range of motion without eliciting any pain. EYES: The sclera were anicteric and conjunctiva were pink and moist. Extraocular movements were intact and pupils were equal round and reactive to light. Eyelids were unremarkable. PULMONARY: Unlabored respirations. Good breath sounds bilaterally. No audible rales rhonchi or wheezing was noted. CARDIOVASCULAR: There is a regular rate and rhythm without any murmurs gallops or rubs. ABDOMEN: Soft and nontender with normal bowel sounds. SKIN: Skin is clear with no lesions or rashes and otherwise unremarkable. NEUROLOGIC: Patient is alert and oriented x3. Cranial nerves II through XII are grossly intact. Motor and sensory are also intact. Normal speech, volume and content. Symmetrical smile. Cerebellar exam grossly intact. Currently patient's NIH is 0 MUSCULOSKELETAL: Normal extremities with adequate strength and full range of motion. No lower extremity swelling or edema. No calf tenderness. LYMPHATICS: No significant lymphadenopathy is noted PSYCHIATRIC: Normal psychiatric evaluation. Medical Decision Making - Medical Decision Making EKG is sinus bradycardia 57 bpm MN interval 232 QRS 170 QT interval 445 QTC is 438. Patient's EKG shows no ST segment elevation. Disposition Referrals: Jeremy Atkinson MD [Primary Care Provider] - 1-2 days
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
[2022-06-17] MEDS ORDERED: HYDROcodone/APAP 5-325MG 1 EACH TAB PO STA (15:51)
[2022-06-17] MEDS ORDERED: NALOXONE 0.4 MG/ML 1 ML VIAL IV PRN (17:25)
[2022-06-17] MEDS ORDERED: methocarbamoL 500 MG TAB PO PRN (17:27)
[2022-06-17 17:36] LABS: Basophils # (A) 0.1 k/uL (0-0.2); Basophils % (A) 1 %; Eosinophils # (A) 0.1 k/uL (0-0.7); Eosinophils % (A) 1 %; HCT 46.8 % (39.0-53.0); HGB 15.9 gm/dL (13.0-17.5); Lymphocytes # (A) 1.7 k/uL (1.0-4.8); Lymphocytes % (A) 10 %; MCH 31.7 pg (25.0-35.0); MCV 93.2 fL (80.0-100.0); Mean Platelet Volume 9.4; Monocytes # (A) 0.9 k/uL (0-1.0); Monocytes % (A) 6 %; Neutrophils # (A) 12.9 k/uL (1.3-7.7); Neutrophils % (A) 81 %; Platelet Count 281 k/uL (150-450); RBC 5.02 m/uL (4.30-5.90); RDW 13.5 % (11.5-15.5); WBC 15.8 k/uL (3.8-10.6)
[2022-06-17 17:46] LABS: African American GFR (CKD) >90 (>60 ml/min/1.73 sqM); Anion Gap 11 mmol/L; Blood Urea Nitrogen 21 mg/dL (9-20); Calcium 9.2 mg/dL (8.4-10.2); Carbon Dioxide 27 mmol/L (22-30); Chloride 103 mmol/L (98-107); Glucose 126 mg/dL (74-99); Non-African American GFR(CKD) >90 (>60 ml/min/1.73 sqM); Potassium 3.6 mmol/L (3.5-5.1); Sodium 141 mmol/L (137-145)
[2022-06-17 17:48] LABS: INR 1.2 (<1.2); Partial Thromboplastin Time 24.3 sec (22.0-30.0); Prothrombin Time 12.5 sec (9.0-12.0)
--- NOTE | 2022-06-17 17:53 | CT ---
EXAMINATION TYPE: CT lumbar spine wo con DATE OF EXAM: 06/17/2022 COMPARISON: 04/23/2022 HISTORY: Fall. Back pain CT DLP: mGycm Automated exposure control for dose reduction was used. Images obtained from the level of T12-S3 vertebra with no contrast. The lumbar vertebrae have normal alignment. There is mild degenerative disc space narrowing throughou t the lumbar spine with spurring of the endplates. There is multilevel vacuum disks. No significant c ompression deformity. The posterior elements are intact. There is hypertrophic mild lumbar facet arth ropathy. No lumbar paraspinal mass. Sacroiliac joints are intact. There is ligament thickening and di sc bulging at L5-4-5 with mild spinal stenosis. There is rudimentary disc at L5-S1. IMPRESSION: There is L4-5 mild lumbar spinal stenosis with small posterior disc herniation. No fracture. No signi ficant change compared to old exam.
--- NOTE | 2022-06-17 18:05 | CT ---
EXAMINATION TYPE: CT pelvis wo con DATE OF EXAM: 06/17/2022 COMPARISON: None HISTORY: Fall. Pain CT DLP: mGycm Automated exposure control for dose reduction was used. Images obtained from the iliac crest to the mid shaft of the femurs with no contrast. No free fluid in the pelvis. Bladder distends smoothly. No M1 or hernia. The pelvic ring is intact. S acroiliac joints are intact. The proximal femurs and hip joints are intact. No hip fracture. The sacr um and coccyx show normal alignment of the segments. No fracture seen. No evidence of sacral fracture . There is small fat containing periumbilical hernia measuring 2 cm. IMPRESSION: No acute abnormality of the pelvis. No evidence of pelvic fracture.
--- NOTE | 2022-06-17 19:45 | US ---
EXAMINATION TYPE: US venous doppler duplex LE DATE OF EXAM: 06/17/2022 7:17 PM COMPARISON: NONE CLINICAL HISTORY: large edema. edema in calves. No hx of DVT, pt states he is on blood thinners SIDE PERFORMED: Bilateral TECHNIQUE: The lower extremity deep venous system is examined utilizing real time linear array sonog karl with graded compression, doppler sonography and color-flow sonography. VESSELS IMAGED: Femoral Vein Popliteal Vein Small Saphenous Vein * Proximal Calf Veins (* superficial vessels) Limited due to patient refusing to take pants off Right Leg: Mid femoral vein, dist fem vein, popliteal vein, and calf veins appear negative for DVT. Left Leg: Mid femoral vein, dist fem vein, popliteal vein, and calf veins appear negative for DVT. IMPRESSION: No evidence of deep vein thrombosis in both legs.
[2022-06-17] MEDS: methylPREDNISolone SOD SUCCI 40 MG/ML 1 ML VIAL IV SCH (20:28)
--- NOTE | 2022-06-17 21:01 | CT ---
EXAMINATION TYPE: CT cervical spine wo con DATE OF EXAM: 06/17/2022 COMPARISON: 06/25/2018 HISTORY: B/L leg weakness CT DLP: 381.5 mGycm Automated exposure control for dose reduction was used. Images obtained from the skull base to T1 vertebra without contrast. The cervical vertebrae show some straightening. There is moderate disc space narrowing from C3 to C7 with spurring of the endplates. There is anterior subluxation of C7 in relation to T1. No fracture se en. Subluxation is almost 4 mm. The posterior element are intact. There is multilevel hypertrophic fa cet arthropathy. IMPRESSION: Multilevel spondylotic changes. Compared to old exam there is development of a C7-T1 spondylolisthesi s. There is resultant narrowing of the spinal canal. Follow-up is recommended. MRI scan would be help ful for further evaluation to evaluate the spinal canal.
--- NOTE | 2022-06-17 21:14 | XR ---
EXAMINATION TYPE: XR chest 2V DATE OF EXAM: 06/17/2022 COMPARISON: 09/20/2019 HISTORY: Short of breath TECHNIQUE: FINDINGS: There is no heart failure nor confluent pneumonic infiltrate. Costophrenic angles are clear . There is slight increased interstitial markings. Mediastinum is normal. Bony thorax is intact. IMPRESSION: Mild increased interstitial markings. No adverse change compared to the old exam. Normal heart.
[2022-06-17 22:04] LABS: Glucose,Whole Blood 225 mg/dL (70-110)
[2022-06-17] MEDS: atenoloL 50 MG TAB PO SCH (22:37)
[2022-06-18] MEDS ORDERED: RX INFO: IV CONTRAST WAS GIVEN 1 EACH MISC MISCELLANE PRN ×2 (00:07→22:54)
[2022-06-18] MEDS: PIPERACILLIN-TAZOBACTAM 3.375 GM in SODIUM CHLORIDE 0.9% 100 ML IVPB SCH ×3 (01:10→16:44)
[2022-06-18] MEDS: HEPARIN SODIUM,PORCINE/PF 5,000 UNIT/0.5 ML SYRINGE SQ SCH ×3 (01:10→16:44)
[2022-06-18] MEDS: methylPREDNISolone SOD SUCCI 40 MG/ML 1 ML VIAL IV SCH ×3 (01:10→16:45)
--- NOTE | 2022-06-18 06:25 | HP ---
HISTORY AND PHYSICAL HISTORY OF PRESENT ILLNESS: A 66-year-old white male admitted with frequent falls, unable to take care of himself at home. When he stands up, his legs gave out bilaterally. He is unable to stand up on his legs. He has bilateral weakness and edema in his legs. He has shortness of breath, hypoxemia. I think he has diastolic heart failure, we did do an echo in the morning. Ultrasound of the leg showed no blood clot, no significant swelling. His legs are weak and giving out. He had a recent thoracic lumbar myelogram which showed terrible pinched nerves of his neck, his leg has given out and he has severe cervical stenosis versus disk herniations for which Dr. Hooker is consulted as well as Dr. Jolly for epidural shot and possible surgery. go to a senior living. MEDICINES: 1. Requip 1 mg t.i.d. 2. 1 mg daily. 3. Zosyn 3.375 g IV q.8h. 4. Actos 30 mg daily. 5. Singulair 10 mg daily. 6. Robaxin 500 b.i.d. 7. Aspirin 81 mg daily. 8. Tenormin 50 mg b.i.d. 9. Lipitor 40 mg daily. 10.Lasix 40 mg daily. 11.Neurontin 600 mg q.h.s. 12.Glucotrol 10 mg a.c. b.i.d. 13.Robaxin 500 b.i.d. 14.Claritin 10 mg daily. 15.Glucotrol 10 mg b.i.d. REVIEW OF SYSTEMS: A 14-point review of systems positive for generalized weakness, falls, and generalized leg swelling, O2 is 92%. PHYSICAL EXAMINATION: CARDIOVASCULAR: S1, S2. LUNGS: Showed rales at the base, scattered rhonchi. PSYCH: Poor mood and affect. NEUROLOGIC: Cranial nerves are intact. He has positive straight leg raising test bilaterally. HEMATOLOGIC: Generalized edema in bilateral legs, tender to palpation paracervical spine. ASSESSMENTS: 1. Cervical stenosis. 2. Neuritis . 3. Chronic obstructive pulmonary disease exacerbation. 4. Tracheobronchitis. 5. Sepsis to left groin. 6. Diastolic heart failure, possible sleep apnea. Continue current treatments, IV antibiotics for abscess of the leg. Incision and drainage per surgery will be done. Diastolic heart failure will be continued. CT of the chest is being ordered. Dr. Hooker for cervical stenosis, epidural shots will be done soon. PROGNOSIS: Guarded. MMODL / IJN: [id number] /
[2022-06-18 06:39] LABS: Appearance,Urine Clear (Clear); Bacteria,Urine Rare /hpf; Bilirubin,Urine Negative (Negative); Blood,Urine Negative (Negative); Color,Urine Yellow; Glucose,Urine (UA) Negative (Negative); Hyaline Casts,Urine 15 /lpf (0-2); Ketones,Urine 1+ (Negative); Leukocyte Esterase,Urine Negative (Negative); Mucus,Urine Occasional /hpf; Nitrite,Urine Negative (Negative); Protein,Urine 2+ (Negative); RBC,Urine 1 /hpf (0-5); Specific Gravity,Urine 1.024 (1.001-1.035); WBC,Urine 5 /hpf (0-5)
[2022-06-18 07:54] LABS: Glucose,Whole Blood 285 mg/dL (70-110)
[2022-06-18] MEDS ORDERED: CLOPIDOGREL 75 MG TAB PO SCH (09:00)
[2022-06-18] MEDS ORDERED: ASPIRIN 81 MG PO SCH (09:00)
[2022-06-18] MEDS: CALCIUM CARB-VIT D 500 MG-5 MCG TAB PO SCH (09:09)
[2022-06-18] MEDS: PIOGLITAZONE 30 MG TAB PO SCH (09:09)
[2022-06-18] MEDS: glipiZIDE 10 MG TAB PO SCH ×2 (09:09→18:55)
[2022-06-18] MEDS: MONTELUKAST 10 MG TAB PO SCH (09:09)
[2022-06-18] MEDS: FUROSEMIDE 40 MG TAB PO SCH (09:09)
[2022-06-18] MEDS: LORATADINE 10 MG TAB PO SCH (09:09)
[2022-06-18] MEDS: atenoloL 50 MG TAB PO SCH ×2 (09:10→20:41)
[2022-06-18] MEDS: MAGNESIUM OXIDE 400 MG TAB PO SCH (09:10)
[2022-06-18] MEDS: POTASSIUM CHLORIDE ER 20 MEQ TAB.ER PO SCH (09:10)
[2022-06-18] MEDS: ATORVASTATIN 40 MG TAB PO SCH (09:10)
[2022-06-18] MEDS: GABAPENTIN 300 MG CAP PO SCH (09:10)
[2022-06-18] MEDS: REPAGLINIDE 1 MG TAB PO SCH (09:26)
--- NOTE | 2022-06-18 11:17 | P.PAINPG ---
Objective - Vital Signs Vital signs: Vital Signs Temp 98.2 F 06/18/22 01:43 Pulse 76 06/18/22 01:43 Resp 16 06/18/22 01:43 BP 136/70 06/18/22 01:43 Pulse Ox 93 L 06/18/22 01:43 FiO2 Intake & Output 06/17/22 06/18/22 06/18/22 18:59 06:59 18:59 Intake Total 500 120 Balance 500 120 Weight 90.718 kg 90.718 kg Intake: Oral 500 120 Other: Voiding Method Toilet Urinal Diaper # Voids 1 - Labs CBC & Chem 7: 06/17/22 17:25 06/17/22 17:25 Labs: Abnormal Lab Results - Last 24 Hours (Table) 06/17/22 06/17/22 06/17/22 Range/Units 17:25 17:25 17:25 WBC 15.8 H (3.8-10.6) k/uL Neutrophils # 12.9 H (1.3-7.7) k/uL PT 12.5 H (9.0-12.0) sec INR 1.2 H (<1.2) BUN 21 H (9-20) mg/dL Glucose 126 H (74-99) mg/dL POC Glucose (mg/dL) (70-110) mg/dL Hemoglobin A1c (0.0-6.0) % Urine Protein (Negative) Urine Ketones (Negative) Urine Bacteria (None) /hpf Hyaline Casts (0-2) /lpf Urine Mucus (None) /hpf 06/17/22 06/17/22 06/18/22 Range/Units 18:50 22:02 06:00 WBC (3.8-10.6) k/uL Neutrophils # (1.3-7.7) k/uL PT (9.0-12.0) sec INR (<1.2) BUN (9-20) mg/dL Glucose (74-99) mg/dL POC Glucose (mg/dL) 225 H (70-110) mg/dL Hemoglobin A1c 8.9 H (0.0-6.0) % Urine Protein 2+ H (Negative) Urine Ketones 1+ H (Negative) Urine Bacteria Rare H (None) /hpf Hyaline Casts 15 H (0-2) /lpf Urine Mucus Occasional H (None) /hpf 06/18/22 Range/Units 07:43 WBC (3.8-10.6) k/uL Neutrophils # (1.3-7.7) k/uL PT (9.0-12.0) sec INR (<1.2) BUN (9-20) mg/dL Glucose (74-99) mg/dL POC Glucose (mg/dL) 285 H (70-110) mg/dL Hemoglobin A1c (0.0-6.0) % Urine Protein (Negative) Urine Ketones (Negative) Urine Bacteria (None) /hpf Hyaline Casts (0-2) /lpf Urine Mucus (None) /hpf Microbiology - Last 24 Hours (Table) 06/17/22 22:50 Wound Culture - Preliminary Groin 06/17/22 22:50 Anaerobic Culture - Preliminary Groin PQRS Measure Charge Sheet Comment: HISTORY OF PRESENT ILLNESS: 66 yr old inpatient male as a referral from Dr. Atkinson presents today w severe and chronic LBP secondary to DDD, spondylosis and facet arthropathy without myelopathy for evaluation. Pt states his pain level at 9/10 in intensity, constant, localized in the lower lumbar spine, dull/ achy in character w radiation of pain L & R of midline as well as to the BL knees and BL feet. Pain is provoked w weight bearing activity. Pain is alleviated w medications, heat, PT in the past, massage in the past, repositioning and rest. PMH: Diabetes Mellitus, Hypertension, Hyperlipidemia, Asthma PSH: Excision L Facial lipoma SH: Daily tobacco user, No ETOH abuse, No illicit drug use. FH: Mo- Lung CA. Fa- Unknown Medical History. All: NKDA Meds: See list including Plavix, ASA, Glyburide, Actos REVIEW OF ORGAN SYSTEMS: CONSTITUTIONAL: No fevers or chills. No recent weight loss. NEUROLOGICAL: + numbness and tingling along the distal extremities. No seizure disorders or headaches. MUSCULOSKELETAL: + pain PSYCHIATRIC: Denies current depression or suicidal thoughts. Physical Examinations : Constitutional : Cooperative , not in acute distress . Neurologic : Cranial nerve II to XII intact. No focal neurological deficits. Psychiatric : alert & oriented x 3. Matching mood & appropriate affect. Judgment & insight intact. Musculoskeletal : Cervical Spine Motor strength in the deltoid and biceps: Normal right side. Normal Left side Motor strength biceps and the wrist extensors: Normal right side . Normal left side Motor strength in the triceps muscle: Normal right side. Normal left side Deep tendon reflexes: Normal at the biceps. Normal at Brachioradialis. Normal at triceps Vertebral body tenderness to deep palpation over Cervical facet loading test: positive bilaterally Spurling test: positive bilaterally Neck distraction test: positive bilaterally Dick sign: positive bilaterally Lumbar spine Motor strength lower extremities ,thigh and legs 5/5 Right side , 5/5 Left side Deep tendon reflexes : Normal Knee Jerk. Normal Ankle Jerk Vertebral body tenderness over L4 Lumbar facet Loading Test: positive Right / positive Left Range of motion of the lumbar spine Flexion 30 degrees, extension 10 degrees Straight Leg Raise test: Left/ Right positive at degree Jayro test: positive right / positive left. Severe tenderness over the Sacroiliac joint on the Right / Left sides Gaenslen test: positive bilaterally Seated flexion test: positive bilaterally. Sacral spine : Severe tenderness over the Sacroiliac joint: right side / left side Range of motion: Flexion of the lumbar spine <60 degrees Range of motion: Extension of the lumbar spine <20 degrees Gaenslen's Test positive Douglas's Test positive Jayro test: positive right side / left side Thigh Thrust Test Sacral Thrust Test Imaging: Computed tomography scan of the lumbar spine from 06/17/22 reviewed Assessment/ Plan : Lumbar DDD, lumbar spondylosis Recommendation of HAZEL L4-L5. May need a series of injections, up to 3 within a six-month timeframe, for optimal pain relief. Risks, benefits of procedure discussed and patient verbalized understanding. Admits aspirin or anti- coagulant use and medical history of diabetes. Protocol for discontinuation/ continuation of medications cameron procedure discussed w nursing staff. Should be scheduled for an HAZEL on 06/19/22. Will be NPO after midnight also. All questions answered. I have spent greater than 30 minutes on patient care today. Dr Jolly was available by phone for the evaluation of this patient. The time was used to review the medical records including relevant urine studies and Prescription history (MAPs), review of the available imaging, evaluation and examination of the patient, coordination of care with the medical staff and if applicable referring physicians, as well as creation of the medical record - Pain Location Back Pharmacological Interventions: PRN Medication PQRS Narrative: Smoking Status Current every day smoker Do You Want the Pneumonia No Vaccine AT THIS TIME? Blood Pressure [Right Arm] 136/70 Blood Pressure 136/65 Pain Intensity [Back] 8 Pain Intensity 0 Pain Scale Used Numeric (1 - 10) Scale Used Numeric (1 - 10) Hx Alcohol Use (MH) No Home Medications: Ambulatory Orders Loratadine [Claritin] 10 mg PO DAILY 09/30/19 Montelukast [Singulair] 10 mg PO DAILY 09/30/19 Repaglinide [Prandin] 1 mg PO DAILY 09/30/19 Aspirin [Adult Low Dose Aspirin EC] 81 mg PO DAILY 04/15/22 Atorvastatin [Lipitor] 40 mg PO DAILY 04/15/22 Clopidogrel [Plavix] 75 mg PO DAILY 04/15/22 Furosemide [Lasix] 40 mg PO DAILY 04/15/22 glyBURIDE [Diabeta] 5 mg PO BID 04/15/22 methocarbamoL [Robaxin] 500 mg PO BID PRN 30 Days #60 tab 04/30/22 Calcium Carbonate/Vitamin D3 [Calcium 600 mg-D3 10 Mcg (400 Iu)] 1 cap PO DAILY 06/02/22 Magnesium Oxide [Magnesium] 500 mg PO DAILY 06/02/22 rOPINIRole HCL [Requip] 1 mg PO TID 06/02/22 Gabapentin 600 mg PO DAILY 06/17/22 Pioglitazone [Actos] 30 mg PO DAILY 06/17/22 Potassium Chloride [Klor-Con M20] 20 meq PO DAILY 06/17/22 atenoloL [Tenormin] 50 mg PO BID 06/17/22 traMADol HCL 50 mg PO TID PRN 06/17/22 Controlled Substance Measures - Controlled Substance Measures Is patient prescribed a controlled substance at discharge?: No
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
[2022-06-18 12:10] LABS: African American GFR (CKD) 119.7 (60.0-200.0); Anion Gap 12.1 mmol/L (10.00-18.00); BUN/Creat Ratio 38.17 Ratio (12.00-20.00); Blood Urea Nitrogen 22.9 mg/dL (9.0-27.0); Calcium 8.6 mg/dL (8.7-10.3); Carbon Dioxide 22.9 mmol/L (20.0-27.5); Non-African American GFR(CKD) 103.3 (60.0-200.0); Potassium 4.4 mmol/L (3.5-5.5)
[2022-06-18 12:31] LABS: Glucose,Whole Blood 279 mg/dL (70-110)
[2022-06-18 13:01] LABS: Basophils # (A) 0.06 X 10*3/uL (0.00-0.10); Basophils % (A) 0.4 %; Eosinophils # (A) 0 X 10*3/uL (0.04-0.35); Eosinophils % (A) 0 %; HCT 42.9 % (39.6-50.0); HGB 14.6 g/dL (13.0-17.0); Immature Grans, Automated 0.6 %; Lymphocytes # (A) 0.55 X 10*3/uL (0.90-5.00); Lymphocytes % (A) 3.7 %; MCH 31.3 pg (27.0-32.0); MCV 92.1 fL (80.0-97.0); Mean Platelet Volume 11.5 fL (9.5-12.2); Monocytes # (A) 0.27 X 10*3/uL (0.20-1.00); Monocytes % (A) 1.8 %; NRBC Per 100 WBC 0 /100 WBCS (0.0-0.0); Neutrophils # (A) 13.76 X 10*3/uL (1.80-7.70); Neutrophils % (A) 93.5 %; Platelet Count 278 X 10*3/uL (140-440); RBC 4.66 X 10*6/uL (4.40-5.60); RDW 14.1 % (11.5-14.5); WBC 14.73 X 10*3/uL (4.50-10.00)
--- NOTE | 2022-06-18 13:23 | CA ---
Transthoracic Echo Report Name: Emre Borrego Age: 66 Gender: M : 1955 Exam Date: 06/18/2022 10:53 Exam Location: [facility] Ht (in): 62 Wt (lb): 299 Ordering Physician: Jeremy Atkinson MD Attending/Referring Phys: Normalizer Tamiko Alberto RDCS Procedure CPT: Indications: diast chf Cardiac Hx: Technical Quality: Contrast 1: Total Dose (mL): Contrast 2: Total Dose (mL): MEASUREMENTS (Male / Female) Normal Values 2D ECHO LA Volume 82.3 cm??? 18 - 58 / 22 - 52 cm??? DOPPLER MV E' Velocity 5.5 cm/s FINDINGS Left Ventricle Normal left ventricular systolic function with no obvious regional wall motion abnormalities. Left ventricular ejection fraction 55% Right Ventricle Normal right ventricular size and function. Right Atrium Normal right atrial size. Left Atrium Severely increased left atrial volume. Mitral Valve Structurally normal mitral valve. Mild mitral regurgitation. Aortic Valve Trileaflet aortic valve. Tricuspid Valve Structurally normal tricuspid valve. Trace to mild tricuspid regurgitation. Pulmonic Valve Structurally normal pulmonic valve. Pericardium Normal pericardium. Aorta Aortic root and proximal ascending aorta not well visualized. CONCLUSIONS Left ventricular ejection fraction 55% Mild mitral regurgitation Trace to mild tricuspid regurgitation No pericardial effusion Previewed by: Dr. Daniel Stacy DO (Electronically Signed) Final Date: 18 June 2022 13:22
--- NOTE | 2022-06-18 15:47 | P.PN ---
Progress Note - Text Progress Note Date: 06/18/22 Our services were notified that the CT myelogram of the Cervical Spine can not be performed due to last dose of plavix was Jun 16. It is a required 5 day hold on anticoagulation for this exam. Patient maybe discharged and scheduled as outpt. Follow up with Dr. Hooker in 2-3 days to continue outpatient care. There is no emergent surgical intervention at this time. Patient is stable and cleared from Orthopedic standpoint for discharge.
[2022-06-18 18:55] LABS: Glucose,Whole Blood 318 mg/dL (70-110)
[2022-06-19] MEDS: HEPARIN SODIUM,PORCINE/PF 5,000 UNIT/0.5 ML SYRINGE SQ SCH ×4 (00:18→22:51)
[2022-06-19] MEDS: PIPERACILLIN-TAZOBACTAM 3.375 GM in SODIUM CHLORIDE 0.9% 100 ML IVPB SCH ×5 (00:18→22:51)
--- NOTE | 2022-06-19 05:09 | PN ---
PROGRESS NOTE SUBJECTIVE: He is scheduled to get epidural tomorrow. He wants to be discharged home on Thursday to go home. OBJECTIVE: CARDIOVASCULAR: S1, S2. LUNGS: Scattered rhonchi and wheeze. HEMATOLOGY: Negative Homans. MUSCULOSKELETAL: Tenderness to palpation of lumbar spine. Straight leg raising test positive. ASSESSMENT: 1. Acute diastolic congestive heart failure. 2. Chronic obstructive pulmonary disease. 3. Abscess in the groin, for which Surgery is going to see him. 4. White count, leukocytosis secondary to that. 5. Epidural for cervical and lumbar radiculopathy tomorrow. 6. PT, OT, possible discharge home after that. MMODL / IJN: [id number] /
[2022-06-19] MEDS: methylPREDNISolone SOD SUCCI 40 MG/ML 1 ML VIAL IV SCH ×4 (07:21→22:51)
[2022-06-19] MEDS: glipiZIDE 10 MG TAB PO SCH ×2 (07:21→18:00)
[2022-06-19] MEDS: REPAGLINIDE 1 MG TAB PO SCH (07:21)
[2022-06-19] MEDS: PIOGLITAZONE 30 MG TAB PO SCH (07:22)
[2022-06-19 07:23] LABS: Glucose,Whole Blood 176 mg/dL (70-110)
[2022-06-19] MEDS: FUROSEMIDE 40 MG TAB PO SCH (07:59)
[2022-06-19] MEDS: MONTELUKAST 10 MG TAB PO SCH (08:01)
[2022-06-19] MEDS: LORATADINE 10 MG TAB PO SCH (08:01)
[2022-06-19] MEDS: GABAPENTIN 300 MG CAP PO SCH (08:01)
[2022-06-19] MEDS: ATORVASTATIN 40 MG TAB PO SCH (08:02)
[2022-06-19] MEDS: atenoloL 50 MG TAB PO SCH ×2 (08:02→20:31)
[2022-06-19] MEDS: CALCIUM CARB-VIT D 500 MG-5 MCG TAB PO SCH (08:02)
[2022-06-19] MEDS: POTASSIUM CHLORIDE ER 20 MEQ TAB.ER PO SCH (08:02)
[2022-06-19] MEDS: MAGNESIUM OXIDE 400 MG TAB PO SCH (08:02)
[2022-06-19 11:00] LABS: Basophils # (A) 0.05 X 10*3/uL (0.00-0.10); Basophils % (A) 0.4 %; Eosinophils # (A) 0.03 X 10*3/uL (0.04-0.35); Eosinophils % (A) 0.2 %; HCT 39.3 % (39.6-50.0); HGB 13.5 g/dL (13.0-17.0); Immature Grans, Automated 0.6 %; Lymphocytes # (A) 2.35 X 10*3/uL (0.90-5.00); Lymphocytes % (A) 18.9 %; MCH 31.5 pg (27.0-32.0); MCHC 34.4 g/dL (32.0-37.0); MCV 91.8 fL (80.0-97.0); Mean Platelet Volume 11.6 fL (9.5-12.2); Monocytes # (A) 1.01 X 10*3/uL (0.20-1.00); Monocytes % (A) 8.1 %; NRBC Per 100 WBC 0 /100 WBCS (0.0-0.0); Neutrophils # (A) 8.93 X 10*3/uL (1.80-7.70); Neutrophils % (A) 71.8 %; Platelet Count 276 X 10*3/uL (140-440); RBC 4.28 X 10*6/uL (4.40-5.60); RDW 14.2 % (11.5-14.5); WBC 12.44 X 10*3/uL (4.50-10.00)
[2022-06-19 11:10] LABS: African American GFR (CKD) 118.4 (60.0-200.0); Albumin 2.9 g/dL (3.8-4.9); Albumin/Globulin Ratio 1.2 (1.60-3.17); Anion Gap 9.3 mmol/L (10.00-18.00); BUN/Creat Ratio 50.89 Ratio (12.00-20.00); Blood Urea Nitrogen 31.4 mg/dL (9.0-27.0); Calcium 8.9 mg/dL (8.7-10.3); Carbon Dioxide 26.4 mmol/L (20.0-27.5); Globulin 2.4 g/dL (1.6-3.3); Non-African American GFR(CKD) 102.1 (60.0-200.0); Total Bilirubin 0.2 mg/dL (0.30-1.20); Total Protein 5.3 g/dL (6.2-8.2)
--- NOTE | 2022-06-19 11:48 | P.PN ---
Subjective Progress Note Date: 06/19/22 CHIEF COMPLAINT: Back pain HISTORY OF PRESENT ILLNESS: Surgical service following regards to left groin a bscess. Patient has significant drainage from that abscess that is foul smelling. He is afebrile. Culture growing beta hemolytic strep group C White count trending down from 14-12.44 per nursing staff patient was unable to get his pain injection for his back due to being on Plavix Patient seen and examined with Dr. Knutson PHYSICAL EXAM: VITAL SIGNS: Reviewed. GENERAL: Well-developed in no acute distress. HEENT: No sclera icterus. Extraocular movements grossly intact. Moist buccal mucosa. Head is atraumatic, normocephalic. ABDOMEN: Soft. Nondistended. Nontender. NEUROLOGIC: Alert and oriented. Cranial nerves II through XII grossly intact. Skin exam: Left groin with large copious purulent foul-smelling discharge. There are 2 small areas of opening in the left groin that are expelling the pus and blood clots. Areas and indurated. Some mild tenderness to palpation. Erythema noted. ASSESSMENT: 1. Left groin abscess 2. Back pain seen by orthopedic service PLAN: -Continue local wound care -Continue antibiotics -We'll have nursing staff get patient into the shower and clean the abscess area -No surgical intervention planned Physician Public Health Technologist note has been reviewed by physician. Signing provider agrees with the documented findings, assessment, and plan of care. Objective - Vital Signs Vital signs: Vital Signs Temp 96.9 F L 06/19/22 08:20 Pulse 60 06/19/22 07:00 Resp 16 06/19/22 08:20 BP 142/73 06/19/22 08:20 Pulse Ox 95 06/19/22 07:00 FiO2 Intake & Output 06/18/22 06/19/22 06/19/22 18:59 06:59 18:59 Intake Total 600 600 240 Balance 600 600 240 Intake: Intake, IV Titration 100 Amount Piperacillin-Tazobactam 3 100 .375 gm In Sodium Chloride 0.9% 100 ml @ 25 mls/hr IVPB Q8HR [facility] Rx# :[id number] Oral 600 500 240 Other: Voiding Method Toilet Toilet Urinal Urinal Diaper Diaper # Voids 1 - Labs CBC & Chem 7: 06/19/22 06:00 06/19/22 06:00 Labs: Abnormal Lab Results - Last 24 Hours (Table) 06/18/22 06/18/22 06/18/22 Range/Units 05:28 05:28 12:20 WBC 14.73 H (4.50-10.00) X 10*3/uL RBC (4.40-5.60) X 10*6/uL Hct (39.6-50.0) % Immature Gran # 0.09 H (0.00-0.04) X 10*3/uL Neutrophils # 13.76 H (1.80-7.70) X 10*3/uL Lymphocytes # 0.55 L (0.90-5.00) X 10*3/uL Monocytes # (0.20-1.00) X 10*3/uL Eosinophils # 0 L (0.04-0.35) X 10*3/uL Anion Gap (10.00-18.00) mmol/L BUN (9.0-27.0) mg/dL BUN/Creatinine Ratio 38.17 H (12.00-20.00) Ratio Glucose 314 H (70-110) mg/dL POC Glucose (mg/dL) 279 H (70-110) mg/dL Calcium 8.6 L (8.7-10.3) mg/dL Total Bilirubin (0.30-1.20) mg/dL AST (14-35) U/L ALT (10-49) U/L Total Protein (6.2-8.2) g/dL Albumin (3.8-4.9) g/dL Albumin/Globulin Ratio (1.60-3.17) g/dL 06/18/22 06/19/22 06/19/22 Range/Units 18:54 06:00 06:00 WBC 12.44 H (4.50-10.00) X 10*3/uL RBC 4.28 L (4.40-5.60) X 10*6/uL Hct 39.3 L (39.6-50.0) % Immature Gran # 0.07 H (0.00-0.04) X 10*3/uL Neutrophils # 8.93 H (1.80-7.70) X 10*3/uL Lymphocytes # (0.90-5.00) X 10*3/uL Monocytes # 1.01 H (0.20-1.00) X 10*3/uL Eosinophils # 0.03 L (0.04-0.35) X 10*3/uL Anion Gap 9.30 L (10.00-18.00) mmol/L BUN 31.4 H (9.0-27.0) mg/dL BUN/Creatinine Ratio 50.89 H (12.00-20.00) Ratio Glucose 199 H (70-110) mg/dL POC Glucose (mg/dL) 318 H (70-110) mg/dL Calcium (8.7-10.3) mg/dL Total Bilirubin 0.20 L (0.30-1.20) mg/dL AST 8 L (14-35) U/L ALT 7 L (10-49) U/L Total Protein 5.3 L (6.2-8.2) g/dL Albumin 2.9 L (3.8-4.9) g/dL Albumin/Globulin Ratio 1.20 L (1.60-3.17) g/dL 06/19/22 Range/Units 07:22 WBC (4.50-10.00) X 10*3/uL RBC (4.40-5.60) X 10*6/uL Hct (39.6-50.0) % Immature Gran # (0.00-0.04) X 10*3/uL Neutrophils # (1.80-7.70) X 10*3/uL Lymphocytes # (0.90-5.00) X 10*3/uL Monocytes # (0.20-1.00) X 10*3/uL Eosinophils # (0.04-0.35) X 10*3/uL Anion Gap (10.00-18.00) mmol/L BUN (9.0-27.0) mg/dL BUN/Creatinine Ratio (12.00-20.00) Ratio Glucose (70-110) mg/dL POC Glucose (mg/dL) 176 H (70-110) mg/dL Calcium (8.7-10.3) mg/dL Total Bilirubin (0.30-1.20) mg/dL AST (14-35) U/L ALT (10-49) U/L Total Protein (6.2-8.2) g/dL Albumin (3.8-4.9) g/dL Albumin/Globulin Ratio (1.60-3.17) g/dL Microbiology - Last 24 Hours (Table) 06/17/22 23:25 Blood Culture - Preliminary Blood No Growth after 24 hours 06/17/22 23:30 Blood Culture - Preliminary Blood No Growth after 24 hours 06/17/22 22:50 Gram Stain - Preliminary Groin Wound Culture - Preliminary Beta Hemolytic Strep Group C
--- NOTE | 2022-06-19 12:08 | CT ---
EXAMINATION TYPE: CT chest w con CT DLP: 558 mGycm, Automated exposure control for dose reduction was used. DATE OF EXAM: 06/19/2022 11:53 AM COMPARISON: Chest radiograph 06/17/2022, CT chest 10/05/2019. CLINICAL INDICATION:Male, 66 years old with history of copd; TECHNIQUE: Multiple axial images were obtained through the chest following the administration of 70 c c of Isovue 300. Coronal and sagittal reformats reviewed. FINDINGS: LUNGS/ PLEURA: Biapical pleural-parenchymal scarring. Mild centrilobular emphysematous changes. Stabl e right upper lobe 6 mm noncalcified pulmonary nodule (series 4, image 11). Stable left lower lobe 8 mm pulmonary nodule (series 4, image 47). No new or enlarging pulmonary nodules. No pneumothorax or pleural effusion. No focal consolidation. AIRWAY: Patent and unremarkable.. HEART: Mildly enlarged. No pericardial effusion. MEDIASTINUM: Enlarged right paratracheal and right hilar adenopathy. Examples include right paratrach eal lymph node measuring 1.5 x 2.4 cm (series 3, image 13). Right paratracheal 4.7 x 2.0 cm enlarged lymph node (series 3, 22) right hilar enlargement, measuring 3.5 x 2.4 cm (series 3, image 26). VASCULATURE: No aortic aneurysm. There appears to be narrowing of the right main pulmonary artery an d its branches secondary to surrounding adenopathy. MUSCULOSKELETAL: No acute osseous abnormalities. No new aggressive osseous lesions. Mild S-shaped scl erotic curvature redemonstrated. Moderate multilevel degenerative disc disease. SOFT TISSUES/LYMPH NODES: Unremarkable. LOWER NECK: No significant findings. UPPER ABDOMEN: Partially visualized curvilinear calcifications in the gallbladder fossa. Left superio r pole 3.9 cm cyst. Right superior pole 1.1 cm cyst. IMPRESSION: 1. New enlarged mediastinal and right hilar lymph nodes when compared to prior examination on 10/05/19 20. This is concerning for malignancy such as metastasis or lymphoma. 2. Stable bilateral pulmonary nodules from examination on 10/05/2019. 3. Mild COPD changes. 4. Curvilinear calcifications within the partially visualized gallbladder fossa. This could be seen w ith porcelain gallbladder versus other etiologies. This could be further evaluated with CT abdomen an d pelvis.
[2022-06-19 12:40] LABS: Glucose,Whole Blood 149 mg/dL (70-110)
[2022-06-19 16:34] LABS: Glucose,Whole Blood 269 mg/dL (70-110)
[2022-06-19 19:42] LABS: Glucose,Whole Blood 387 mg/dL (70-110)
[2022-06-19] MEDS ORDERED: DEXTROSE 50% SYRINGE 50 ML IVP PRN ×2 (20:01)
[2022-06-19] MEDS: INSULIN ASPART (NovoLOG) 100 UNIT/ML VIAL SQ SCH (20:31)
[2022-06-20 07:18] LABS: Glucose,Whole Blood 264 mg/dL (70-110)
[2022-06-20] MEDS: PIOGLITAZONE 30 MG TAB PO SCH (08:27)
[2022-06-20] MEDS: glipiZIDE 10 MG TAB PO SCH (08:27)
[2022-06-20] MEDS: atenoloL 50 MG TAB PO SCH (08:27)
[2022-06-20] MEDS: REPAGLINIDE 1 MG TAB PO SCH (08:27)
[2022-06-20] MEDS: CALCIUM CARB-VIT D 500 MG-5 MCG TAB PO SCH (08:28)
[2022-06-20] MEDS: INSULIN ASPART (NovoLOG) 100 UNIT/ML VIAL SQ SCH ×2 (08:28→13:19)
[2022-06-20] MEDS: ATORVASTATIN 40 MG TAB PO SCH (08:28)
[2022-06-20] MEDS: LORATADINE 10 MG TAB PO SCH (08:28)
[2022-06-20] MEDS: MONTELUKAST 10 MG TAB PO SCH (08:28)
[2022-06-20] MEDS: GABAPENTIN 300 MG CAP PO SCH (08:28)
[2022-06-20] MEDS: MAGNESIUM OXIDE 400 MG TAB PO SCH (08:28)
[2022-06-20] MEDS: PIPERACILLIN-TAZOBACTAM 3.375 GM in SODIUM CHLORIDE 0.9% 100 ML IVPB SCH (08:29)
[2022-06-20] MEDS: methylPREDNISolone SOD SUCCI 40 MG/ML 1 ML VIAL IV SCH (08:29)
[2022-06-20] MEDS: HEPARIN SODIUM,PORCINE/PF 5,000 UNIT/0.5 ML SYRINGE SQ SCH (08:29)
[2022-06-20] MEDS: FUROSEMIDE 40 MG TAB PO SCH (08:29)
[2022-06-20] MEDS: POTASSIUM CHLORIDE ER 20 MEQ TAB.ER PO SCH (08:29)
[2022-06-20 10:56] LABS: Basophils % (A) 0 %; Eosinophils % (A) 0 %; HCT 42.7 % (39.0-53.0); HGB 14.7 gm/dL (13.0-17.5); Lymphocytes # (A) 1.3 k/uL (1.0-4.8); Lymphocytes % (A) 9 %; MCH 31.9 pg (25.0-35.0); MCHC 34.3 g/dL (31.0-37.0); MCV 92.9 fL (80.0-100.0); Mean Platelet Volume 10.1; Monocytes # (A) 0.5 k/uL (0-1.0); Monocytes % (A) 4 %; Neutrophils # (A) 11.3 k/uL (1.3-7.7); Neutrophils % (A) 85 %; Platelet Count 305 k/uL (150-450); RBC 4.59 m/uL (4.30-5.90); RDW 13.5 % (11.5-15.5); WBC 13.3 k/uL (3.8-10.6)
[2022-06-20 12:19] LABS: Glucose,Whole Blood 213 mg/dL (70-110)
--- NOTE | 2022-06-20 13:38 | P.PN ---
Subjective Progress Note Date: 06/20/22 CHIEF COMPLAINT: Back pain HISTORY OF PRESENT ILLNESS: Surgical service following regards to left groin a bscess. Patient has significant drainage from that abscess that is foul smelling. He is afebrile. Culture growing beta hemolytic strep group C. Patient's groin is still draining purulent discharge. Afebrile. WBC 13.3 patient is also on steroids. patient's computed tomography scan of the chest shows curvilinear calcifications within the partially visualized gallbladder fossa. This could be seen with porcelain gallbladder versus other etiologies. Results reviewed with Dr. pham. Patient denies any abdominal pain. He is tolerating diet. Denies any nausea or vomiting. Patient seen and examined with Dr. Pham PHYSICAL EXAM: VITAL SIGNS: Reviewed. GENERAL: Well-developed in no acute distress. HEENT: No sclera icterus. Extraocular movements grossly intact. Moist buccal mucosa. Head is atraumatic, normocephalic. ABDOMEN: Soft. Nondistended. Nontender. NEUROLOGIC: Alert and oriented. Cranial nerves II through XII grossly intact. Skin exam: Left groin with purulent discharge. Decreased tenderness. Decrease amount of drainage. ASSESSMENT: 1. Left groin abscess 2. Calcifications within the gallbladder fossa with possibility of porcelain gallbladder 3. Back pain seen by orthopedic service PLAN: -Patient can be discharged from surgical standpoint -Recommend patient showers daily and cleans the left groin -Continue antibiotics -Continue local wound care -No surgical intervention planned for left groin abscess -Concerns for possibility of porcelain gallbladder noted on CAT scan which increases risk of gallbladder cancer. Per Dr. Pham he would recommend cholecystectomy when patient is medically stable. Physician Production Welding Supervisor note has been reviewed by physician. Signing provider agrees with the documented findings, assessment, and plan of care. Objective - Vital Signs Vital signs: Vital Signs Temp 97.5 F L 06/20/22 07:00 Pulse 69 06/20/22 07:00 Resp 20 06/20/22 07:00 BP 152/54 06/20/22 07:00 Pulse Ox 94 L 06/20/22 07:00 FiO2 Intake & Output 06/19/22 06/20/22 06/20/22 18:59 06:59 18:59 Intake Total 718 180 Output Total 350 Balance 368 180 Intake: Oral 718 180 Output: Urine 350 Other: Voiding Method Toilet Toilet Urinal Urinal Diaper Diaper # Voids 4 - Labs CBC & Chem 7: 06/20/22 10:06/19/22 06:00 Labs: Abnormal Lab Results - Last 24 Hours (Table) 06/19/22 06/19/22 06/20/22 Range/Units 16:32 19:41 07:15 WBC (3.8-10.6) k/uL Neutrophils # (1.3-7.7) k/uL POC Glucose (mg/dL) 269 H 387 H 264 H (70-110) mg/dL 06/20/22 06/20/22 Range/Units 10:22 12:17 WBC 13.3 H (3.8-10.6) k/uL Neutrophils # 11.3 H (1.3-7.7) k/uL POC Glucose (mg/dL) 213 H (70-110) mg/dL Microbiology - Last 24 Hours (Table) 06/17/22 23:30 Blood Culture - Preliminary Blood No Growth after 48 hours 06/17/22 23:25 Blood Culture - Preliminary Blood No Growth after 48 hours 06/17/22 22:50 Gram Stain - Final Groin Wound Culture - Final Beta Hemolytic Strep Group C
[2022-06-20 14:50] VITALS: BP 117/65; PULSE 77; RESP 16; TEMP 97.7
--- NOTE | 2022-06-21 10:40 | PN ---
PROGRESS NOTE SUBJECTIVE: A 66-year-old white male, still came in with severe lumbar disk disease, herniated disk disease, cervical disk disease, unable to ambulate. He was given IV steroids. He is slowly improving. They wanted to do his epidural shot, but he is still improved without. The patient needs to hold Plavix for the next 5 to 7 days and then go get an epidural shot. OBJECTIVE: CARDIOVASCULAR: S1, S2. LUNGS: Clear. GI: Soft. HEMATOLOGY: Negative for Homans. ASSESSMENT: Ultrasound of the legs are negative. He is up ambulating . He will be discharged home in the morning with steroids taper. We have to hold his Plavix to epidural shot, which will be set up as an outpatient. Prognosis guarded. MMODL / GRISELN: [id number] /
== END 2022-06-20 15:45 | disposition home or self-care (01) ==
LOC: EC 13:12 → 6NMEDSUR 17:25
PROVIDERS: ADMIT Family Medicine; ATTEND Family Medicine
DX: L02.214 Cutaneous abscess of groin (principal); I11.0 Hypertensive heart disease with heart failure; I50.31 Acute diastolic (congestive) heart failure; M51.36 Other intervertebral disc degeneration, lumbar region; M48.061 Spinal stenosis, lumbar region without neurogenic claudication; M48.03 Spinal stenosis, cervicothoracic region; M51.26 Other intervertebral disc displacement, lumbar region; M43.13 Spondylolisthesis, cervicothoracic region; F17.200 Nicotine dependence, unspecified, uncomplicated; E11.9 Type 2 diabetes mellitus without complications; D72.829 Elevated white blood cell count, unspecified; K42.9 Umbilical hernia without obstruction or gangrene; J40 Bronchitis, not specified as acute or chronic; R06.02 Shortness of breath; J43.2 Centrilobular emphysema; R29.6 Repeated falls; R91.8 Other nonspecific abnormal finding of lung field; I08.1 Rheumatic disorders of both mitral and tricuspid valves; Q61.02 Congenital multiple renal cysts; E78.5 Hyperlipidemia, unspecified; Z79.899 Other long term (current) drug therapy; Z79.82 Long term (current) use of aspirin; Z79.84 Long term (current) use of oral hypoglycemic drugs; Z79.02 Long term (current) use of antithrombotics/antiplatelets; Z80.1 Family history of malignant neoplasm of trachea, bronchus and lung
CPT/HCPCS: 96376 ×3; 96365; 96366 ×3; 96372 ×2; 96375; 99284; 36415; 93306; 97162; 97166; 85379; 83880; 80053; 80048 ×2; 84484; 85025 ×4; 85610; 85730; 81001; 87040; 87070; 87205; 87075; 83036; 71046; 93970; 72192; 72125; 72131; 71260; G0378 ×4; J2543 ×3; J2920 ×4; Q9967; J1644 ×2; 93005

== ENCOUNTER 2022-09-29 15:44 | Inpatient (IN) | payer MEDICARE ==
[~2022-09-29 15:44] MED LIST changes: +IOPAMIDOL M200 10 ML VIAL ONE; -LACTATED RINGERS 1,000 ML IV SCH; -LIDOCAINE 1% (10MG/ML) FOR IV START INTRADERMA PRN; +methylPREDNISolone ACETATE 40 MG/ML 1 ML VIAL ONE
--- NOTE | 2022-09-29 16:56 | ED ---
General Adult HPI - General Source: patient, RN notes reviewed Mode of arrival: ambulatory Limitations: no limitations <Karen Epps - Last Filed: 09/29/22 16:55> <Louie Sotomayor - Last Filed: 09/29/22 20:54> - General Chief complaint: Back Pain/Injury Stated complaint: back pain - History of Present Illness Initial comments: 66-year-old male presents to the emergency department with a chief complaint of low back pain and "unable to walk." He notes that he fell out of a truck which caused his symptoms. (Karen Epps) This is a 66-year-old male with a past medical history including previous stents in his right lower leg status post peripheral vascular disease and diabetes pr esents emergency department for back pain since . The patient stated that his back "moves all 4 directions whenever he sitting and does rotate at the rotation spot." The patient stated that he was sent into the emergency department by his primary care physician to be admitted for possible epidural shots. The patient denied any numbness or tingling in the lower extremities as well as any urinary or fecal incontinence. The patient was resting in bed, comfortably but did state that he has difficulty in breathing throughout his home. (Louie Sotomayor) - Related Data Home Medications Medication Instructions Recorded Confirmed Montelukast [Singulair] 10 mg PO DAILY 09/30/19 09/29/22 Repaglinide [Prandin] 1 mg PO DAILY 09/30/19 09/29/22 Aspirin [Adult Low Dose Aspirin EC] 81 mg PO DAILY 04/15/22 09/29/22 Atorvastatin [Lipitor] 40 mg PO DAILY 04/15/22 09/29/22 glyBURIDE [Diabeta] 5 mg PO BID 04/15/22 09/29/22 rOPINIRole HCL [Requip] 1 mg PO TID 06/02/22 09/29/22 Gabapentin 600 mg PO TID 06/17/22 09/29/22 Pioglitazone [Actos] 15 mg PO BID 06/17/22 09/29/22 Potassium Chloride [Klor-Con M20] 20 meq PO DAILY 06/17/22 09/29/22 atenoloL [Tenormin] 50 mg PO BID 06/17/22 09/29/22 traMADol HCL 50 mg PO TID PRN 06/17/22 09/29/22 Furosemide [Lasix] 20 mg PO DAILY 09/29/22 09/29/22 Metoprolol Tartrate [Lopressor] 12.5 mg PO BID 09/29/22 09/29/22 Previous Rx's Medication Instructions Recorded methocarbamoL [Robaxin] 500 mg PO BID PRN 30 Days #60 tab 04/30/22 Allergies Allergy/AdvReac Type Severity Reaction Status Date / Time No Known Allergies Allergy Verified 09/29/22 19:58 Review of Systems ROS Other: All systems not noted in ROS Statement are negative. <Karen Epps - Last Filed: 09/29/22 16:55> ROS Other: All systems not noted in ROS Statement are negative. <Louie Sotomayor - Last Filed: 09/29/22 20:54> ROS Statement: Those systems with pertinent positive or pertinent negative responses have been documented in the HPI. Past Medical History Past Medical History: Diabetes Mellitus, Hypertension Additional Past Medical History / Comment(s): NIDDM type II, hiatal hernia History of Any Multi-Drug Resistant Organisms: None Reported Additional Past Surgical History / Comment(s): Excision L Facial lipoma, Past Anesthesia/Blood Transfusion Reactions: No Reported Reaction Past Psychological History: No Psychological Hx Reported Smoking Status: Current every day smoker Past Alcohol Use History: None Reported Past Drug Use History: None Reported - Past Family History Mother Family Medical History: Cancer Additional Family Medical History / Comment(s): Mother of lung cancer. Father History Unknown: Yes <Karen Epps - Last Filed: 09/29/22 16:55> General Exam Limitations: no limitations <Karen Epps - Last Filed: 09/29/22 16:55> Limitations: no limitations General appearance: alert, in no apparent distress Head exam: Present: atraumatic, normocephalic, normal inspection Eye exam: Present: normal appearance, PERRL Pupils: Present: normal accommodation ENT exam: Present: normal exam, normal oropharynx, mucous membranes moist Neck exam: Present: normal inspection, full ROM Respiratory exam: Present: normal lung sounds bilaterally Cardiovascular Exam: Present: regular rate, normal rhythm, normal heart sounds GI/Abdominal exam: Present: soft, normal bowel sounds Extremities exam: Present: normal inspection, full ROM Back exam: Present: tenderness (Tenderness along the midline lumbar spine without any stepoffs noted) Neurological exam: Present: alert, oriented X3, CN II-XII intact Psychiatric exam: Present: normal affect, normal mood Skin exam: Present: warm, dry <Louie Sotomayor - Last Filed: 09/29/22 20:54> Course Vital Signs 09/29/22 09/29/22 09/29/22 15:46 18:48 20:00 Temperature 98.7 F Pulse Rate 65 69 78 Respiratory 20 18 16 Rate Blood Pressure 123/85 135/71 148/63 O2 Sat by Pulse 97 96 97 Oximetry Medical Decision Making - Lab Data Result diagrams: 09/29/22 18:57 09/29/22 18:57 <Louie Sotomayor - Last Filed: 09/29/22 20:54> - Medical Decision Making Was pt. sent in by a medical professional or institution (, PA, MASONRY INSPECTOR, urgent care, hospital, or penitentiary...) When possible be specific @ -Yes, PCP Dr. Atkinson Did you speak to anyone other than the patient for history (EMS, parent, family, police, friend...)? What history was obtained from this source @ -No Did you review nursing and triage notes (agree or disagree)? Why? @ -I reviewed and agree with nursing and triage notes Were old charts reviewed (outside hosp., previous admission, EMS record, old EKG, old radiological studies, urgent care reports/EKG's, penitentiary records)? Report findings @ -No old charts were reviewed Differential Diagnosis (chest pain, altered mental status, abdominal pain women, abdominal pain men, vaginal bleeding, weakness, fever, dyspnea, syncope, headache, dizziness, GI bleed, back pain, seizure, CVA, palpatations, mental health)? @ -Acute spinal fractures, chronic back pain EKG interpreted by me (3pts min.). @ -As above X-rays interpreted by me (1pt min.). @ -None done CT interpreted by me (1pt min.). @ -CT of the thoracic and lumbar spine with contrast was obtained but was still pending at this time. U/S interpreted by me (1pt. min.). @ -None done What testing was considered but not performed or refused? (CT, X-rays, U/S, labs)? Why? @ -None What meds were considered but not given or refused? Why? @ -None Did you discuss the management of the patient with other professionals (professionals i.e. , PA, MASONRY INSPECTOR, lab, RT, psych nurse, socially responsible investment adviser, lab animal technologist, teacher, business services officer, upper caser)? Give summary @ -Yes, patient's primary care physician Was smoking cessation discussed for >3mins.? @ -Yes Was critical care preformed (if so, how long)? @ -No Were there social determinants of health that impacted care today? How? (Homelessness, low income, unemployed, alcoholism, drug addiction, transportation, low edu. Level, literacy, decrease access to med. care, fdc, rehab)? @ -No Was there de-escalation of care discussed even if they declined (Discuss DNR or withdrawal of care, Hospice)? DNR status @ -No What co-morbidities impacted this encounter? (DM, HTN, Smoking, COPD, CAD, Cancer, CVA, ARF, Chemo, Hep., AIDS, mental health diagnosis, sleep apnea, morbid obesity)? @ -Diabetes, peripheral vascular disease Was patient admitted / discharged? Hospital course, mention meds given and route, prescriptions, significant lab abnormalities, going to OR and other pertinent info. @ -The patient was seen and evaluated in the emergency department. Physical exam, the patient was resting in bed without any acute distress. Vital signs were stable. Laboratory workup was obtained as was a CT of the lumbar thoracic spine. The patient's primary care physician did contact me and did want the patient admitted for further workup and evaluation of his back pain for possible epidural injections. The patient was told of this plan and was agreeable. The patient was admitted in stable condition. Undiagnosed new problem with uncertain prognosis? @ -No Drug Therapy requiring intensive monitoring for toxicity (Heparin, Nitro, Insulin, Cardizem)? @ -No Were any procedures done? @ -No Diagnosis/symptom? @ -Chronic lumbar back pain with difficulty with ambulation Acute, or Chronic, or Acute on Chronic? @ -Chronic Uncomplicated (without systemic symptoms) or Complicated (systemic symptoms)? @ -Complicated Side effects of treatment? @ -No Exacerbation, Progression, or Severe Exacerbation? @ -No Poses a threat to life or bodily function? How? (Chest pain, [place], [place], pneumonia, PE, COPD, DKA, ARF, appy, cholecystitis, CVA, Diverticulitis, Homicidal, Suicidal, threat to staff... and all critical care pts) @ -No (Louie Sotomayor) - Lab Data Lab Results 09/29/22 09/29/22 09/29/22 Range/Units 18:57 18:57 20:00 WBC 8.0 (3.8-10.6) k/uL RBC 4.41 (4.30-5.90) m/uL Hgb 13.7 (13.0-17.5) gm/dL Hct 41.3 (39.0-53.0) % MCV 93.7 (80.0-100.0) fL MCH 31.1 (25.0-35.0) pg MCHC 33.2 (31.0-37.0) g/dL RDW 15.2 (11.5-15.5) % Plt Count 245 (150-450) k/uL MPV 9.7 Neutrophils % 63 % Lymphocytes % 26 % Monocytes % 6 % Eosinophils % 1 % Basophils % 1 % Neutrophils # 5.1 (1.3-7.7) k/uL Lymphocytes # 2.1 (1.0-4.8) k/uL Monocytes # 0.5 (0-1.0) k/uL Eosinophils # 0.1 (0-0.7) k/uL Basophils # 0.0 (0-0.2) k/uL Sodium 143 (137-145) mmol/L Potassium 3.9 (3.5-5.1) mmol/L Chloride 110 H (98-107) mmol/L Carbon Dioxide 28 (22-30) mmol/L Anion Gap 5 mmol/L BUN 29 H (9-20) mg/dL Creatinine 0.63 L (0.66-1.25) mg/dL Est GFR (CKD-EPI)AfAm >90 (>60 ml/min/1.73 sqM) Est GFR (CKD-EPI)NonAf >90 (>60 ml/min/1.73 sqM) Glucose 187 H (74-99) mg/dL POC Glucose (mg/dL) 182 H (70-110) mg/dL POC Glu Guyline Operator ID Ashok Licea Calcium 8.9 (8.4-10.2) mg/dL Magnesium 1.8 (1.6-2.3) mg/dL Total Bilirubin 0.3 (0.2-1.3) mg/dL AST 16 L (17-59) U/L ALT 15 (4-49) U/L Alkaline Phosphatase 122 (38-126) U/L Total Protein 6.3 (6.3-8.2) g/dL Albumin 3.4 L (3.5-5.0) g/dL Disposition <Karen Epps - Last Filed: 09/29/22 16:55> Is patient prescribed a controlled substance at d/c from ED?: No Time of Disposition: 19:00 Decision to Admit Reason: Admit from EC Decision Date: 09/29/22 Decision Time: 19:00 <Louie Sotomayor - Last Filed: 09/29/22 20:54> Clinical Impression: Lumbar back pain Disposition: ADMITTED IP TO THIS [facility] Condition: Stable Referrals: Jeremy Atkinson MD [Primary Care Provider] - 1-2 days
[2022-09-29 19:06] LABS: Basophils % (A) 1 %; Eosinophils # (A) 0.1 k/uL (0-0.7); Eosinophils % (A) 1 %; HCT 41.3 % (39.0-53.0); HGB 13.7 gm/dL (13.0-17.5); Lymphocytes # (A) 2.1 k/uL (1.0-4.8); Lymphocytes % (A) 26 %; MCH 31.1 pg (25.0-35.0); MCHC 33.2 g/dL (31.0-37.0); MCV 93.7 fL (80.0-100.0); Mean Platelet Volume 9.7; Monocytes # (A) 0.5 k/uL (0-1.0); Monocytes % (A) 6 %; Neutrophils # (A) 5.1 k/uL (1.3-7.7); Neutrophils % (A) 63 %; Platelet Count 245 k/uL (150-450); RBC 4.41 m/uL (4.30-5.90); RDW 15.2 % (11.5-15.5)
[2022-09-29 19:16] LABS: ALT 15 U/L (4-49); AST 16 U/L (17-59); African American GFR (CKD) >90 (>60 ml/min/1.73 sqM); Albumin 3.4 g/dL (3.5-5.0); Alkaline Phosphatase 122 U/L (38-126); Anion Gap 5 mmol/L; Blood Urea Nitrogen 29 mg/dL (9-20); Calcium 8.9 mg/dL (8.4-10.2); Carbon Dioxide 28 mmol/L (22-30); Chloride 110 mmol/L (98-107); Glucose 187 mg/dL (74-99); Magnesium 1.8 mg/dL (1.6-2.3); Non-African American GFR(CKD) >90 (>60 ml/min/1.73 sqM); Potassium 3.9 mmol/L (3.5-5.1); Sodium 143 mmol/L (137-145); Total Bilirubin 0.3 mg/dL (0.2-1.3); Total Protein 6.3 g/dL (6.3-8.2)
[2022-09-29 20:03] LABS: Glucose,Whole Blood 182 mg/dL (70-110)
--- NOTE | 2022-09-29 20:35 | CT ---
EXAMINATION TYPE: CT thor lumbar spine w con CT DLP: 1838.6 mGycm, Automated exposure control for dose reduction was used. DATE OF EXAM: 09/29/2022 7:57 PM COMPARISON: CT chest 06/19/2022, lumbar spine 06/17/2022. CLINICAL INDICATION:Male, 66 years old with history of Chronic back pain with diff walking, pain. Tro uble walking since January after fall. TECHNIQUE: Multiple axial images were obtained from the midportion of T11 through the sacroiliac berta nts. Soft tissue and bone windows in coronal and sagittal planes were obtained and reviewed. Contrast used:100ml mL of Isovue 300 with IV Contrast, Oral contrast used: none. FINDINGS: Alignment: There are 5 lumbar type vertebral bodies within normal alignment.2 Bone: No evidence of fracture is identified. Multilevel disc degeneration changes are seen throughou t the spine with osteophyte formation, disc space narrowing and vacuum disc phenomenon. Facet joint a rthropathy, Discs: No evidence for significant spinal canal stenosis. There is scattered disc bulging the lower l umbar spine with at least mild spinal canal stenosis. Facet joint arthropathy worse in the lower lumb ar spine with multilevel at least mild neural foraminal stenosis. Other: Atherosclerosis of the arterial vasculature. Large stool burden throughout the colon. Renal cy sts bilaterally. Partially visualized right common iliac stent graft. Redemonstration of lymphadenopathy within the mediastinum as seen on prior CT 06/19/2022 example incl udes right paratracheal lymph node measuring up to 21 mm in short axis. Right upper lobe pulmonary no dule mild COPD changes are present. Measuring 8 mm is stable from prior. IMPRESSION: 1. No evidence of fracture of the lumbar spine. 2. Moderate multilevel disc degeneration changes throughout the spine with multilevel at least mild s kris canal stenosis most proximal and lumbar spine. Additionally there is multilevel mild neural for aminal stenosis within the lumbar spine. 3. Mediastinal lymphadenopathy is now reformed further workup is recommended to exclude neoplastic pr ocess.
[2022-09-29] MEDS ORDERED: NALOXONE 0.4 MG/ML 1 ML VIAL IV PRN (20:55)
[2022-09-30] MEDS ORDERED: methocarbamoL 500 MG TAB PO PRN (00:07)
[2022-09-30] MEDS ORDERED: HYDROmorphone 0.5 MG/0.5 ML SYRINGE IVP PRN (00:15)
[2022-09-30 00:52] LABS: Appearance,Urine Clear (Clear); Bilirubin,Urine Negative (Negative); Blood,Urine Negative (Negative); Color,Urine Yellow; Glucose,Urine (UA) Negative (Negative); Ketones,Urine Negative (Negative); Leukocyte Esterase,Urine Negative (Negative); Mucus,Urine Rare /hpf; Nitrite,Urine Negative (Negative); PH, Urine 6.5 (5.0-8.0); Protein,Urine 1+ (Negative); RBC,Urine 2 /hpf (0-5); Squamous Epithelial Cell,Urine <1 /hpf (0-4); WBC,Urine 1 /hpf (0-5)
[2022-09-30] MEDS: glipiZIDE 10 MG TAB PO SCH ×3 (01:24→21:44)
[2022-09-30] MEDS: GABAPENTIN 300 MG CAP PO SCH ×4 (01:24→21:43)
[2022-09-30] MEDS: traMADol 50 MG TAB PO PRN (01:24)
[2022-09-30] MEDS ORDERED: GABAPENTIN 300 MG CAP PO SCH (09:00)
[2022-09-30] MEDS ORDERED: glipiZIDE 10 MG TAB PO SCH (09:00)
[2022-09-30] MEDS: METOPROLOL TARTRATE 12.5 MG TAB PO SCH ×2 (09:41→21:44)
[2022-09-30] MEDS: MONTELUKAST 10 MG TAB PO SCH (09:41)
[2022-09-30] MEDS: ASPIRIN 81 MG PO SCH (09:41)
[2022-09-30] MEDS: ATORVASTATIN 40 MG TAB PO SCH (09:42)
[2022-09-30] MEDS: FUROSEMIDE 20 MG TAB PO SCH (09:43)
[2022-09-30] MEDS: POTASSIUM CHLORIDE ER 20 MEQ TAB.ER PO SCH (09:43)
[2022-09-30] MEDS: atenoloL 50 MG TAB PO SCH ×2 (09:43→21:43)
[2022-09-30] MEDS: methylPREDNISolone SOD SUCCI 40 MG/ML 1 ML VIAL IV SCH ×2 (09:45→17:46)
--- NOTE | 2022-09-30 10:03 | P.CNPUL ---
History of Present Illness Consult date: 09/30/22 Reason for consult: dyspnea, COPD, lung mass, abnormal CXR/CT Chief complaint: Mediastinal adenopathy History of present illness: 66-year-old male who presented in the emergency department due to severe low back pain and inability to walk patient has been having ongoing symptoms since [facility] last year. Patient has a extensive history of smoking and nicotine use with complication of peripheral arterial disease also has been found with mediastinal lymphadenopathy he had workup and evaluation at [facility] with a lymph node biopsy and was scheduled for chemo and radiation therapy but however due to logistic reasons reason patient decided not to go there. Patient is weak in the lower extremity and seeking epidural shot however now getting further workup and evaluation with a question of metastatic disease. Patient is overall a poor historian has a rather complex medical issues including peripheral arterial disease, diabetes mellitus with severe hyperglycemia and uncontrolled, hypertension hypertensive cardiovascular disease and stents multiple in the lower extremities computed tomography scan of the spine revealed no fracture of lumbar disc, multilevel degenerative joint disease present with mild spinal stenosis in including foraminal stenosis at lumbar spine and continue show mediastinal lymphadenopathy unchanged from June 2022 Review of Systems All systems: negative Past Medical History Past Medical History: Diabetes Mellitus, Hypertension Additional Past Medical History / Comment(s): NIDDM type II, hiatal hernia History of Any Multi-Drug Resistant Organisms: None Reported Additional Past Surgical History / Comment(s): Excision L Facial lipoma, Past Anesthesia/Blood Transfusion Reactions: No Reported Reaction Past Psychological History: No Psychological Hx Reported Smoking Status: Current every day smoker Past Alcohol Use History: None Reported Past Drug Use History: None Reported - Past Family History Mother Family Medical History: Cancer Additional Family Medical History / Comment(s): Mother of lung cancer. Father History Unknown: Yes Medications and Allergies Home Medications Medication Instructions Recorded Confirmed Type Montelukast [Singulair] 10 mg PO DAILY 09/30/19 09/29/22 History Repaglinide [Prandin] 1 mg PO DAILY 09/30/19 09/29/22 History Aspirin [Adult Low Dose Aspirin EC] 81 mg PO DAILY 04/15/22 09/29/22 History Atorvastatin [Lipitor] 40 mg PO DAILY 04/15/22 09/29/22 History glyBURIDE [Diabeta] 5 mg PO BID 04/15/22 09/29/22 History methocarbamoL [Robaxin] 500 mg PO BID PRN 30 Days #60 tab 04/30/22 09/29/22 Rx rOPINIRole HCL [Requip] 1 mg PO TID 06/02/22 09/29/22 History Gabapentin 600 mg PO TID 06/17/22 09/29/22 History Pioglitazone [Actos] 15 mg PO BID 06/17/22 09/29/22 History Potassium Chloride [Klor-Con M20] 20 meq PO DAILY 06/17/22 09/29/22 History atenoloL [Tenormin] 50 mg PO BID 06/17/22 09/29/22 History traMADol HCL 50 mg PO TID PRN 06/17/22 09/29/22 History Furosemide [Lasix] 20 mg PO DAILY 09/29/22 09/29/22 History Metoprolol Tartrate [Lopressor] 12.5 mg PO BID 09/29/22 09/29/22 History Allergies Allergy/AdvReac Type Severity Reaction Status Date / Time No Known Allergies Allergy Verified 09/29/22 19:58 Physical Exam Vitals: Vital Signs Temp Pulse Resp BP Pulse Ox 09/30/22 09:37 98.3 F 69 18 146/75 95 09/30/22 08:31 97.6 F 72 18 135/75 96 09/30/22 04:00 74 18 139/66 97 09/29/22 23:00 82 16 130/102 95 09/29/22 22:30 88 16 128/68 97 09/29/22 21:13 67 18 131/100 97 09/29/22 20:00 78 16 148/63 97 09/29/22 18:48 69 18 135/71 96 09/29/22 15:46 98.7 F 65 20 123/85 97 Intake and Output 09/29/22 09/30/22 09/30/22 22:59 06:59 14:59 Other: Weight 81.647 kg - Constitutional General appearance: average body habitus, cooperative, disheveled, mild distress - EENT Eyes: EOMI, PERRLA Ears: bilateral: normal - Neck Neck: normal ROM Carotids: bilateral: upstroke normal Thyroid: bilateral: normal size - Respiratory Respiratory: bilateral: CTA - Cardiovascular Rhythm: regular Heart sounds: normal: S1, S2 - Gastrointestinal General gastrointestinal: normal bowel sounds - Integumentary Integumentary: normal turgor - Neurologic Neurologic: CNII-XII intact - Musculoskeletal Musculoskeletal: generalized weakness - Psychiatric Psychiatric: A&O x's 3, appropriate affect, intact judgment & insight Results - Laboratory Findings CBC and BMP: 09/29/22 18:57 09/29/22 18:57 Abnormal lab findings: Abnormal Labs 09/29/22 09/29/22 09/29/22 18:57 20:00 23:44 Chloride 110 H BUN 29 H Creatinine 0.63 L Glucose 187 H POC Glucose (mg/dL) 182 H AST 16 L Albumin 3.4 L Ur Specific [place] 1.050 H Urine Protein 1+ H Urine Mucus Rare H - Diagnostic Findings CT scan - chest: report reviewed, image reviewed Assessment and Plan Assessment: Lung cancer with pathology unknown workup and evaluation has been done at [facility] will try to obtain old records Metastatic disease cannot be excluded, recommend to consult oncology may need radiation oncology as well, Dr. Keys has been consulted COPD not in exacerbation Low back pain Lower extremity weakness due to multiple foraminal narrowing due to severe DJD workup in progress Peripheral arterial disease Extensive history of smoking and nicotine use Plan: , Continue supportive care, pain management, consult oncology and radiation oncology if patient wants to get therapy over here We'll follow closely Time with Patient: Greater than 30
[2022-09-30 10:53] LABS: Glucose,Whole Blood 140 mg/dL (70-110)
[2022-09-30] MEDS: REPAGLINIDE 1 MG TAB PO SCH (11:34)
[2022-09-30] MEDS: PIOGLITAZONE 15 MG TAB PO SCH ×2 (11:34→21:44)
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
--- NOTE | 2022-09-30 14:06 | P.PCN ---
Date of Procedure: 09/30/22 Procedure(s) Performed: PREOPERATIVE DIAGNOSIS: 1- Lumbar Degenerative Disc Diseases 2-Lumbar spondylosis with Facet arthropathy without myelopathy. 3-lumbar spinal stenosis POSTOPERATIVE DIAGNOSIS: Same as preop diagnosis. PROCEDURE 1. Lumbar epidural steroid injection under fluoroscopic guidance at the L4-5 level. (Fluoroscopy imaging was available in radiology department) 2. Lumbar epidurogram. ANESTHESIA: Local anesthesia with lidocaine 1% 3 mL only EBL: Minimal PROCEDURE INDICATION: The patient with low back pain and radiculitis symptoms unresponsive to conservative treatment. Fluoroscopy was used to optimize visualization of the needle placement and to maximize safety. PROCEDURE DESCRIPTION / TECHNIQUE: The patient was seen and identified in the preoperative area. Risks, benefits, complications including but not limited to infections ,bleeding ,allergic reaction to the medications ,nerve damage and not complete pain releife , and alternatives were discussed with the patient. The patient agreed to proceed with the procedure and signed the consent, and vital signs were stable. Patient was taken to the OR and time out was completed. The patient was placed in the prone position on procedure table and a pillow was placed under the abdomen to reduce lumbar lordosis. The lumbosacral area was prepped and draped in the usual sterile fashion.ere closely monitored during the procedure. Vital signs was monitered during the entire procedure. Using anterior-posterior fluoroscopy, the L4-5 interlaminar space was identified and the skin over this site was marked and then infiltrated with 1% lidocaine subcutaneously. Subsequently, a 20-gauge Tuohy epidural needle was inserted and advanced toward the epidural space using the ``Loss of resistance technique and guided by AP and lateral fluoroscopy. The correct needle position in the epidural space was verified with the injection of 2 mL of the water soluble contrast dye Isovue 200 contrast and observing an excellent epidurogram with the epidural spread of the dye, after negative aspiration for blood and CSF and in the absence of paresthesias. Again after negative aspiration, a 6 ml mixture containing 40 mg of Depo-medrol ( Preservetive Free ), and 2 ml of preservative free Normal Saline, and 2 ml of preservative free lidocaine 1% solution was injected and a washout of epidurogram was seen. Needle was withdrawn intact, skin was cleansed, and bandages were applied. COMPLICATIONS: None DISPOSITION / PLANS: The patient was placed in a supine position and transferred to the recovery area in a stable condition for observation. There was no evidence of lower extremity motor or sensory deficit after the procedure. Patient was discharged from the recovery room after meeting discharge criteria. Home discharge instructions were given to the patient by the staff. The patient was reexamined prior to discharge. The patient will schedule a follow up in the clinic in 2-4 weeks.
--- NOTE | 2022-09-30 14:42 | P.GSCN ---
History of Present Illness Consult date: 09/30/22 History of present illness: CHIEF COMPLAINT: Back pain HISTORY OF PRESENT ILLNESS: This is a 66-year-old male who presents to the hospital with complaints of lower back pain and difficulty with walking. Patient has had these symptoms since last Easter. Patient seen by the anesthesia for epidural steroid injection. Patient with mediastinal lymphadenopathy and apparently had workup done at [facility] with a lymph node biopsy and was initially scheduled for chemo and radiation treatment however did not get this completed due to logistic reasons. Patient is a poor historian. Information was obtained from patient's chart. Patient denies any abdominal pain. Denies any nausea or vomiting. Denies any prior history of colonoscopy. Denies any fever chills or sweats. PAST MEDICAL HISTORY: Diabetes mellitus, hypertension, peripheral arterial disease with lower extremity stents PAST SURGICAL HISTORY: See below MEDICATIONS: See below ALLERGIES: See below SOCIAL HISTORY: No illicit drug use. REVIEW OF SYSTEMS: CONSTITUTIONAL: Denies fever or chills. HEENT: Denies blurred vision, vision changes, or eye pain. Denies hemoptysis CARDIOVASCULAR: Denies chest pain or pressure. RESPIRATORY: No shortness of breath. GASTROINTESTINAL: See HPI for pertinent findings HEMATOLOGIC: Denies bleeding disorders. GENITOURINARY: Denies any blood in urine or increased urinary frequency. SKIN: Denies pruitis. Denies rash. PHYSICAL EXAM: VITAL SIGNS: Reviewed GENERAL: Well-developed in no acute distress. HEENT: No sclera icterus. Extraocular movements grossly intact. Moist buccal mucosa. Head is atraumatic, normocephalic. No nasal drainage. ABDOMEN: Soft. Nondistended. Nontender NEUROLOGIC: Alert and oriented. Cranial nerves II through XII grossly intact. LABORATORY DATA: WBC is 8 Hgb 13.7 platelets 245 Sodium is 143 potassium is 3.9 creatinine 0.63 Glucose 140 Total bili 0.3 AST 16 ALT 15 alk phos 122 IMAGING: Computed tomography scan of the thoracic lumbar spine no evidence of fracture of the lumbar spine. Moderate multilevel disc degenerative changes throughout the spine with multilevel at least mild spinal canal stenosis most proximal and lumbar spine. Multilevel mild neural foraminal stenosis of the lumbar spine. M ediastinal lymphadenopathy and now reformed further workup is recommended to exclude neoplastic process. ASSESSMENT: 1. Lung cancer 2. Mediastinal lymphadenopathy 3. Back pain 4. Nicotine dependence PLAN: -Further recommendations forthcoming per surgeon -Continue supportive care Thank you for this consultation Physician Assistant Teacher note has been reviewed by physician. Signing provider agrees with the documented findings, assessment, and plan of care. Past Medical History Past Medical History: Diabetes Mellitus, Hypertension Additional Past Medical History / Comment(s): NIDDM type II, hiatal hernia History of Any Multi-Drug Resistant Organisms: None Reported Additional Past Surgical History / Comment(s): Excision L Facial lipoma, Past Anesthesia/Blood Transfusion Reactions: No Reported Reaction Past Psychological History: No Psychological Hx Reported Smoking Status: Current every day smoker Past Alcohol Use History: None Reported Past Drug Use History: None Reported - Past Family History Mother Family Medical History: Cancer Additional Family Medical History / Comment(s): Mother of lung cancer. Father History Unknown: Yes Medications and Allergies Home Medications Medication Instructions Recorded Confirmed Type Montelukast [Singulair] 10 mg PO DAILY 09/30/19 09/29/22 History Repaglinide [Prandin] 1 mg PO DAILY 09/30/19 09/29/22 History Aspirin [Adult Low Dose Aspirin EC] 81 mg PO DAILY 04/15/22 09/29/22 History Atorvastatin [Lipitor] 40 mg PO DAILY 04/15/22 09/29/22 History glyBURIDE [Diabeta] 5 mg PO BID 04/15/22 09/29/22 History methocarbamoL [Robaxin] 500 mg PO BID PRN 30 Days #60 tab 04/30/22 09/29/22 Rx rOPINIRole HCL [Requip] 1 mg PO TID 06/02/22 09/29/22 History Gabapentin 600 mg PO TID 06/17/22 09/29/22 History Pioglitazone [Actos] 15 mg PO BID 06/17/22 09/29/22 History Potassium Chloride [Klor-Con M20] 20 meq PO DAILY 06/17/22 09/29/22 History atenoloL [Tenormin] 50 mg PO BID 06/17/22 09/29/22 History traMADol HCL 50 mg PO TID PRN 06/17/22 09/29/22 History Furosemide [Lasix] 20 mg PO DAILY 09/29/22 09/29/22 History Metoprolol Tartrate [Lopressor] 12.5 mg PO BID 09/29/22 09/29/22 History Allergies Allergy/AdvReac Type Severity Reaction Status Date / Time No Known Allergies Allergy Verified 09/29/22 19:58 Surgical - Exam Vital Signs Temp Pulse Resp BP Pulse Ox 98.7 F 65 20 123/85 97 09/29/22 15:46 09/29/22 15:46 09/29/22 15:46 09/29/22 15:46 09/29/22 15:46 Results - Labs 09/29/22 18:57 09/29/22 18:57 Abnormal Lab Results - Last 24 Hours (Table) 09/29/22 09/29/22 09/29/22 Range/Units 18:57 20:00 23:44 Chloride 110 H (98-107) mmol/L BUN 29 H (9-20) mg/dL Creatinine 0.63 L (0.66-1.25) mg/dL Glucose 187 H (74-99) mg/dL POC Glucose (mg/dL) 182 H (70-110) mg/dL AST 16 L (17-59) U/L Albumin 3.4 L (3.5-5.0) g/dL Ur Specific [place] 1.050 H (1.001-1.035) Urine Protein 1+ H (Negative) Urine Mucus Rare H (None) /hpf 09/30/22 Range/Units 10:52 Chloride (98-107) mmol/L BUN (9-20) mg/dL Creatinine (0.66-1.25) mg/dL Glucose (74-99) mg/dL POC Glucose (mg/dL) 140 H (70-110) mg/dL AST (17-59) U/L Albumin (3.5-5.0) g/dL Ur Specific [place] (1.001-1.035) Urine Protein (Negative) Urine Mucus (None) /hpf Diabetes panel 09/29/22 Range/Units 18:57 Sodium 143 (137-145) mmol/L Potassium 3.9 (3.5-5.1) mmol/L Chloride 110 H (98-107) mmol/L Carbon Dioxide 28 (22-30) mmol/L BUN 29 H (9-20) mg/dL Creatinine 0.63 L (0.66-1.25) mg/dL Glucose 187 H (74-99) mg/dL Calcium 8.9 (8.4-10.2) mg/dL AST 16 L (17-59) U/L ALT 15 (4-49) U/L Alkaline Phosphatase 122 (38-126) U/L Total Protein 6.3 (6.3-8.2) g/dL Albumin 3.4 L (3.5-5.0) g/dL Calcium panel 09/29/22 Range/Units 18:57 Calcium 8.9 (8.4-10.2) mg/dL Albumin 3.4 L (3.5-5.0) g/dL Pituitary panel 09/29/22 Range/Units 18:57 Sodium 143 (137-145) mmol/L Potassium 3.9 (3.5-5.1) mmol/L Chloride 110 H (98-107) mmol/L Carbon Dioxide 28 (22-30) mmol/L BUN 29 H (9-20) mg/dL Creatinine 0.63 L (0.66-1.25) mg/dL Glucose 187 H (74-99) mg/dL Calcium 8.9 (8.4-10.2) mg/dL Adrenal panel 09/29/22 Range/Units 18:57 Sodium 143 (137-145) mmol/L Potassium 3.9 (3.5-5.1) mmol/L Chloride 110 H (98-107) mmol/L Carbon Dioxide 28 (22-30) mmol/L BUN 29 H (9-20) mg/dL Creatinine 0.63 L (0.66-1.25) mg/dL Glucose 187 H (74-99) mg/dL Calcium 8.9 (8.4-10.2) mg/dL Total Bilirubin 0.3 (0.2-1.3) mg/dL AST 16 L (17-59) U/L ALT 15 (4-49) U/L Alkaline Phosphatase 122 (38-126) U/L Total Protein 6.3 (6.3-8.2) g/dL Albumin 3.4 L (3.5-5.0) g/dL
[2022-09-30 15:57] LABS: Glucose,Whole Blood 420 mg/dL (70-110)
[2022-09-30] MEDS ORDERED: DEXTROSE 50% SYRINGE 50 ML IVP PRN ×2 (16:46)
--- NOTE | 2022-09-30 17:07 | FL ---
EXAMINATION TYPE: FL guided pain mgmt statistic DATE OF EXAM: 09/30/2022 FLUOROSCOPY Fluoroscopy time of 4 seconds was used during lumbar epidural steroid injection. 1 image/s document/ s the procedure.
[2022-09-30] MEDS: INSULIN ASPART (NovoLOG) 100 UNIT/ML VIAL SQ SCH ×2 (17:46→21:44)
[2022-09-30 20:18] LABS: Glucose,Whole Blood 308 mg/dL (70-110)
--- NOTE | 2022-09-30 23:18 | HP ---
HISTORY AND PHYSICAL HISTORY OF PRESENT ILLNESS: A 66-year-old white male with severe low back pain, inability to walk since he was here last year, history of small cell lung cancer, peripheral artery disease, nicotine addiction, smoking. He has radiation chemotherapy done area. He is unable to walk. He is demanding an epidural shot on his back and wants an orthopedic consult for his lumbar spine as he is unable to lift his legs, which is limiting his ambulation. He has seen Dr. Hooker once in the past. We are going to consult him and get an epidural shot. CAT scan in the ER showed no fracture, degenerative disk disease, moderate. REVIEW OF SYSTEMS: A 14-point review of systems otherwise negative. PAST MEDICAL HISTORY: Diabetes mellitus, hypertension, hiatal hernia. SOCIAL HISTORY: Current everyday smoker. No alcohol, no drugs. FAMILY HISTORY: Mother with cancer of the lung. HOME MEDICINES: List reviewed. PHYSICAL EXAMINATION: VITAL SIGNS: Temperature 97.6, pulse 70s to 80s, respiratory rate 16 to 18, blood pressure 130s to 140s over 60s to 100, and O2 97-98. HEENT: Normocephalic, atraumatic. Pupils equal, round, and reactive to light. PSYCH: Fair mood and affect. NEUROLOGIC: Alert and oriented x3. CARDIOVASCULAR: S1, S2. HEMATOLOGY: Negative Homans. MUSCULOSKELETAL: He is able to bend his knees, but they appear weak, 3/5 strength. He has 2+ edema in bilateral legs. ASSESSMENT: Non-small cell lung cancer, lumbar degenerative disk disease, chronic obstructive pulmonary disease, diastolic heart failure. Prognosis guarded. Wait for Dr. Hooker and epidural shot to be done, steroids for both of those and COPD. Leg weakness, do nuclear bone scan, peripheral artery disease, nicotine addiction. Prognosis guarded. MMODL / IJN: [id number] /
[2022-10-01] MEDS: methylPREDNISolone SOD SUCCI 40 MG/ML 1 ML VIAL IV SCH ×3 (00:47→18:35)
[2022-10-01 06:11] LABS: Glucose,Whole Blood 267 mg/dL (70-110)
[2022-10-01] MEDS: INSULIN ASPART (NovoLOG) 100 UNIT/ML VIAL SQ SCH ×4 (06:21→21:13)
--- NOTE | 2022-10-01 09:42 | P.CONS ---
History of Present Illness - Reason for Consult Consult date: 10/01/22 wound care - History of Present Illness Is a 66-year-old gentleman with past medical history significant for diabetes, hypertension, current every day smoker. Patient is seen in the wound care center in [place]. He utilizes collagen powder to the right dorsal ulceration. The right dorsal ulceration measures approximately 3 x 2.5 x 0.2 cm with granulation seen throughout the wound bed minimal Slough and nonviable tissue present. The wound edges are attached to base no tunneling or undermining noted. Review Of Systems: Constitutional: No fever, no chills, no night sweats. No weight change. No weakness, fatigue or lethargy. No daytime sleepiness. Integumentary:reports wounds, no lesions. No rash or pruritus. No unusual bruising. No change in hair or nails. Physical exam: General Appearance: Alert, cooperative, no distress, appears stated age. Skin: See HPI all other Skin color, texture, tugor normal, no rashes or lesions. Neurologic: Alert oriented x3 Assessment: 1. Nonhealing ulceration right dorsal foot with fat layer exposed 2. Diabetic foot ulcer Plan: 1.Apply collagen, saline moistened gauze, dry gauze, rolled gauze and secure with paper tape. Change Thursday. Patient will continue to follow up in [place] wound care center upon discharge. Thank you for the consultation any questions please contact the wound care center DNP note has been reviewed and discussed with Dr. Ann and the impression and plan of care has been directed as dictated. Past Medical History Past Medical History: Diabetes Mellitus, Hypertension Additional Past Medical History / Comment(s): NIDDM type II, hiatal hernia History of Any Multi-Drug Resistant Organisms: None Reported Additional Past Surgical History / Comment(s): Excision L Facial lipoma, Past Anesthesia/Blood Transfusion Reactions: No Reported Reaction Past Psychological History: No Psychological Hx Reported Smoking Status: Current every day smoker Past Alcohol Use History: None Reported Past Drug Use History: None Reported - Past Family History Mother Family Medical History: Cancer Additional Family Medical History / Comment(s): Mother of lung cancer. Father History Unknown: Yes Medications and Allergies Home Medications Medication Instructions Recorded Confirmed Type Montelukast [Singulair] 10 mg PO DAILY 09/30/19 09/29/22 History Repaglinide [Prandin] 1 mg PO DAILY 09/30/19 09/29/22 History Aspirin [Adult Low Dose Aspirin EC] 81 mg PO DAILY 04/15/22 09/29/22 History Atorvastatin [Lipitor] 40 mg PO DAILY 04/15/22 09/29/22 History glyBURIDE [Diabeta] 5 mg PO BID 04/15/22 09/29/22 History methocarbamoL [Robaxin] 500 mg PO BID PRN 30 Days #60 tab 04/30/22 09/29/22 Rx rOPINIRole HCL [Requip] 1 mg PO TID 06/02/22 09/29/22 History Gabapentin 600 mg PO TID 06/17/22 09/29/22 History Pioglitazone [Actos] 15 mg PO BID 06/17/22 09/29/22 History Potassium Chloride [Klor-Con M20] 20 meq PO DAILY 06/17/22 09/29/22 History atenoloL [Tenormin] 50 mg PO BID 06/17/22 09/29/22 History traMADol HCL 50 mg PO TID PRN 06/17/22 09/29/22 History Furosemide [Lasix] 20 mg PO DAILY 09/29/22 09/29/22 History Metoprolol Tartrate [Lopressor] 12.5 mg PO BID 09/29/22 09/29/22 History Allergies Allergy/AdvReac Type Severity Reaction Status Date / Time No Known Allergies Allergy Verified 09/29/22 19:58 Physical Exam Vitals: Vital Signs Temp Pulse Resp BP BP Pulse Ox 10/01/22 06:22 98.7 F 77 17 124/66 95 10/01/22 02:17 98.3 F 77 18 110/63 90 L 09/30/22 19:23 98.0 F 83 18 113/56 91 L 09/30/22 14:00 98.2 F 69 17 155/82 92 L 09/30/22 13:20 96.6 F L 66 16 137/68 94 L 09/30/22 10:50 16 09/30/22 10:47 98.0 F 67 18 160/84 91 L Intake and Output 09/30/22 10/01/22 10/01/22 22:59 06:59 14:59 Output Total 300 Balance -300 Output: Urine 300 Other: Voiding Method Urinal # Voids 1 Results CBC & Chem 7: 09/29/22 18:57 09/29/22 18:57 Labs: Abnormal Lab Results - Last 24 Hours (Table) 09/29/22 09/30/22 09/30/22 Range/Units 18:57 10:52 15:56 POC Glucose (mg/dL) 140 H 420 H (70-110) mg/dL Hemoglobin A1c 6.5 H (0.0-6.0) % 09/30/22 10/01/22 Range/Units 20:17 06:09 POC Glucose (mg/dL) 308 H 267 H (70-110) mg/dL Hemoglobin A1c (0.0-6.0) % Assessment and Plan (1) Non-pressure chronic ulcer of other part of right foot with fat layer exposed Current Visit: Yes Status: Acute Code(s): L97.512 - NON-PRS CHRONIC ULCER OTH PRT RIGHT FOOT W FAT LAYER EXPOSED SNOMED Code(s): 87927063305703514 (2) Type 2 diabetes mellitus with foot ulcer Current Visit: Yes Status: Acute Code(s): E11.621 - TYPE 2 DIABETES MELLITUS WITH FOOT ULCER; L97.509 - NON-PRESSURE CHRONIC ULCER OTH PRT UNSP FOOT W UNSP SEVERITY SNOMED Code(s): 375023339
[2022-10-01] MEDS: PIOGLITAZONE 15 MG TAB PO SCH ×2 (09:51→21:12)
[2022-10-01] MEDS: ATORVASTATIN 40 MG TAB PO SCH (09:51)
[2022-10-01] MEDS: POTASSIUM CHLORIDE ER 20 MEQ TAB.ER PO SCH (09:51)
[2022-10-01] MEDS: METOPROLOL TARTRATE 12.5 MG TAB PO SCH ×2 (09:51→21:12)
[2022-10-01] MEDS: REPAGLINIDE 1 MG TAB PO SCH (09:51)
[2022-10-01] MEDS: atenoloL 50 MG TAB PO SCH ×2 (09:51→21:12)
[2022-10-01] MEDS: FUROSEMIDE 20 MG TAB PO SCH (09:52)
[2022-10-01] MEDS: GABAPENTIN 300 MG CAP PO SCH ×3 (09:53→21:12)
[2022-10-01] MEDS: ASPIRIN 81 MG PO SCH (09:53)
[2022-10-01] MEDS: MONTELUKAST 10 MG TAB PO SCH (09:53)
[2022-10-01] MEDS: glipiZIDE 10 MG TAB PO SCH ×2 (09:53→21:12)
--- NOTE | 2022-10-01 11:31 | P.CNOR ---
History of Present Illness - [facility] Consult date: 10/01/22 Requesting physician: Jeremy Atkinson Consult reason: other (lumbar ddd/weakness) History of present illness: Patient is 66-year-old male who presented the emergency department [facility] on 09/29/2022 with a chief complaint of low back pain and inability to ambulate. Patient notes he has been having issues like diffuse since 2021. Patient does have a past medical history of PAD; diabetes mellitus, hypertension, COPD with multiple stents. Patient was seen at bedside this morning. Orthopedics has been consulted for low back pain. Patient says he did receive a steroid injection into his back yesterday. Patient says he does note some improvement at this time, however, patient says he is still having low back pain. Patient is somewhat of a poor historian and jumps from subject subject. He says he has been and out of hospitals over the past few months. He says he has had treatment on his right foot for a diabetic ulcer. Patient mentions that he has had low back pain that has worsened over the past couple months. Patient says at home he does ambulate with a walker and that he is unable to stand up straight due to his back and when he attempts to ambulate he hunches over and falls to ground. Patient denies any loss of bowel/bladder control. Patient says there is sometimes radiation of pain down both lower extremities. Patient notes that he does not feel that his weakness in the legs. Patient also mentions some left upper extremity pain that has been ongoing over the past year. Patient does note numbness and tingling that does extend primarily from his left elbow and radiates up to his left shoulder/neck and down into his left hand sometimes. Patient denies chest pain, fever, shortness of breath, nausea, vomiting, change in vision, loss pulse control. Past Medical History Past Medical History: Diabetes Mellitus, Hypertension Additional Past Medical History / Comment(s): NIDDM type II, hiatal hernia History of Any Multi-Drug Resistant Organisms: None Reported Additional Past Surgical History / Comment(s): Excision L Facial lipoma, Past Anesthesia/Blood Transfusion Reactions: No Reported Reaction Past Psychological History: No Psychological Hx Reported Smoking Status: Current every day smoker Past Alcohol Use History: None Reported Past Drug Use History: None Reported - Past Family History Mother Family Medical History: Cancer Additional Family Medical History / Comment(s): Mother of lung cancer. Father History Unknown: Yes Medications and Allergies Home Medications Medication Instructions Recorded Confirmed Type Montelukast [Singulair] 10 mg PO DAILY 09/30/19 09/29/22 History Repaglinide [Prandin] 1 mg PO DAILY 09/30/19 09/29/22 History Aspirin [Adult Low Dose Aspirin EC] 81 mg PO DAILY 04/15/22 09/29/22 History Atorvastatin [Lipitor] 40 mg PO DAILY 04/15/22 09/29/22 History glyBURIDE [Diabeta] 5 mg PO BID 04/15/22 09/29/22 History methocarbamoL [Robaxin] 500 mg PO BID PRN 30 Days #60 tab 04/30/22 09/29/22 Rx rOPINIRole HCL [Requip] 1 mg PO TID 06/02/22 09/29/22 History Gabapentin 600 mg PO TID 06/17/22 09/29/22 History Pioglitazone [Actos] 15 mg PO BID 06/17/22 09/29/22 History Potassium Chloride [Klor-Con M20] 20 meq PO DAILY 06/17/22 09/29/22 History atenoloL [Tenormin] 50 mg PO BID 06/17/22 09/29/22 History traMADol HCL 50 mg PO TID PRN 06/17/22 09/29/22 History Furosemide [Lasix] 20 mg PO DAILY 09/29/22 09/29/22 History Metoprolol Tartrate [Lopressor] 12.5 mg PO BID 09/29/22 09/29/22 History Allergies Allergy/AdvReac Type Severity Reaction Status Date / Time No Known Allergies Allergy Verified 09/29/22 19:58 Physical Examination Inspection: Negative for any open fractures, significant ecchymosis. Diabetic foot ulcer present on the dorsum of the right foot which extends to the fat layer. Scoliosis throughout spine Sensation: Sensation is equal, symmetric, bilaterally intact throughout the upper and lower extremities. Palpation: Mild to moderate TTP at the bilateral sacroiliac joints. mild TTP at midline and cervical spine and at midline in the lower lumbar spine. NTTP throughout rest exam. Range of motion: Patient has full range of motion in bilateral upper extremities and wrist flexion/extension, elbow flexion/extension, shoulder forward elevation, abduction. There is similar range of motion in internal and external rotation of shoulders. Patient does have some limited range of motion bilaterally in the hips and flexion/extension to referred pain to the low back. Patient has full range of motion in bilateral knees in flexion/extension. Patient has full range of motion in ankle dorsi/plantar flexion bilaterally. Motor: 4/5 in resisted hip flexion/extension bilaterally. 4+/5 in all other major milligrams bilateral lower and upper extremities on exam. Neurovascular status: Radial pulses intact, 2+ bilaterally. Cap refill under 3 seconds in his upper extremities. Special tests: Negative Dick bilaterally. Negative clonus bilaterally. Negative Homans bilaterally. Results - Labs Labs: Abnormal Lab Results - Last 24 Hours (Table) 09/29/22 09/30/22 09/30/22 Range/Units 18:57 10:52 15:56 POC Glucose (mg/dL) 140 H 420 H (70-110) mg/dL Hemoglobin A1c 6.5 H (0.0-6.0) % 09/30/22 10/01/22 Range/Units 20:17 06:09 POC Glucose (mg/dL) 308 H 267 H (70-110) mg/dL Hemoglobin A1c (0.0-6.0) % H & H 09/29/22 Range/Units 18:57 Hgb 13.7 (13.0-17.5) gm/dL Hct 41.3 (39.0-53.0) % Result Diagrams: 09/29/22 18:57 09/29/22 18:57 - Diagnostic results CT Scan - lumbar: report reviewed, image reviewed (Computed tomography scan of lumbar spine does not reveal any fractures throughout the vertebra. There is evident detail disc disease present throughout the lumbar spine. There is also evident spondylosis and degenerative disc disease.) Assessment and Plan Assessment: 1. Low back pain; degenerative disc disease; lumbar spondylosis Plan: 1. Low back pain; lumbar spinal; degenerative disc disease - Computed tomography scan of lumbar spine does not reveal any fractures throughout the vertebra. There is evident degenerative disc disease present throughout the lumbar spine. There is also spondylosis through the lumbar spine. Patient did have epidural steroid injection of L4-L5 performed yesterday. Patient does have some relief at this time, however still does have back pain this time. We'll continue conservative measures at this time with use of pain medication. At this time we are not recommending any emergency/urgent orthopedic surgical intervention. We will continue to follow patient during his stay in hospital. 2. Appreciate medical management 3. Pain management - gabapentin; Robaxin; tramadol 4. DVT prophylaxis - aspirin 5. GI recs 6. PT/OT - weightbearing as tolerated with walker and assistance 7. Appreciate consult Time with Patient: Less than 30
[2022-10-01 11:33] LABS: Glucose,Whole Blood 247 mg/dL (70-110)
[2022-10-01 13:06] VITALS: BMI 25.1
--- NOTE | 2022-10-01 14:52 | NM ---
EXAMINATION TYPE: NM bone scan whole body DATE OF EXAM: 10/01/2022 COMPARISON: CT chest 06/19/2022 HISTORY: Leg weakness, metastatic lung cancer. Delayed whole-body scanning was performed following the injection of 22.7 mCi Tc 99m MDP. Images acq uired 5.25 hours post injection. FINDINGS: There are 2 foci of uptake within the anterior lateral fourth and fifth left ribs corresponding to sc lerotic foci in prior CT chest. No other suspicious regions of uptake within the visualized osseous s tructures. IMPRESSION: 2 foci of uptake within the fourth and fifth left ribs corresponding to CT chest sclerotic foci which raises concern for metastatic disease.
--- NOTE | 2022-10-01 14:59 | P.PN ---
Subjective Progress Note Date: 10/01/22 Principal diagnosis: Lung cancer with pathology unknown workup and evaluation has been done at [facility] will try to obtain old records Metastatic disease cannot be excluded, recommend to consult oncology may need radiation oncology as well, Dr. Keys has been consulted COPD not in exacerbation Low back pain Lower extremity weakness due to multiple foraminal narrowing due to severe DJD workup in progress Peripheral arterial disease Extensive history of smoking and nicotine use 10/01/2022, patient seen eval examined during the rounds labs reviewed medications reviewed, swelling in the lower extremity slightly improved, shortness of breath stable, ongoing dyspnea on exertion is present, ongoing still have some cough, she remains on IV steroids bronchodilators and the diuretics, pain in the back has improved, patient is being considered for epidural, finally bone scan has been done2 foci of uptake within fourth and fifth rib corresponding to CT chest urine foci raises concern for metastatic disease, awaiting oncology evaluation 66-year-old male who presented in the emergency department due to severe low back pain and inability to walk patient has been having ongoing symptoms since [facility] last year. Patient has a extensive history of smoking and nicotine use with complication of peripheral arterial disease also has been found with mediastinal lymphadenopathy he had workup and evaluation at [facility] with a lymph node biopsy and was scheduled for chemo and radiation therapy but however due to logistic reasons reason patient decided not to go there. Patient is weak in the lower extremity and seeking epidural shot however now getting further workup and evaluation with a question of metastatic disease. Patient is overall a poor historian has a rather complex medical issues including peripheral arterial disease, diabetes mellitus with severe hyperglycemia and uncontrolled, hypertension hypertensive cardiovascular disease and stents mul tiple in the lower extremities computed tomography scan of the spine revealed no fracture of lumbar disc, multilevel degenerative joint disease present with mild spinal stenosis in including foraminal stenosis at lumbar spine and continue show mediastinal lymphadenopathy unchanged from June 2022 Objective - Vital Signs Vital signs: Vital Signs Temp 98.7 F 10/01/22 06:22 Pulse 77 10/01/22 06:22 Resp 18 10/01/22 08:26 BP 124/66 10/01/22 06:22 Pulse Ox 95 10/01/22 06:22 FiO2 Intake & Output 09/30/22 10/01/22 10/01/22 18:59 06:59 18:59 Intake Total 540 Output Total 500 300 350 Balance -500 -300 190 Weight 81.647 kg 81.647 kg Intake: Oral 540 Output: Urine 500 300 350 Other: Voiding Method Urinal Urinal Urinal # Voids 1 - Exam - Constitutional General appearance: average body habitus, cooperative, disheveled, mild distress - EENT Eyes: EOMI, PERRLA Ears: bilateral: normal - Neck Neck: normal ROM Carotids: bilateral: upstroke normal Thyroid: bilateral: normal size - Respiratory Respiratory: bilateral: CTA - Cardiovascular Rhythm: regular Heart sounds: normal: S1, S2 - Gastrointestinal General gastrointestinal: normal bowel sounds - Integumentary Integumentary: normal turgor - Neurologic Neurologic: CNII-XII intact - Musculoskeletal Musculoskeletal: generalized weakness - Psychiatric Psychiatric: A&O x's 3, appropriate affect, intact judgment & insight - Labs CBC & Chem 7: 09/29/22 18:57 09/29/22 18:57 Labs: Abnormal Lab Results - Last 24 Hours (Table) 09/29/22 09/30/22 09/30/22 Range/Units 18:57 15:56 20:17 POC Glucose (mg/dL) 420 H 308 H (70-110) mg/dL Hemoglobin A1c 6.5 H (0.0-6.0) % 10/01/22 10/01/22 Range/Units 06:09 11:31 POC Glucose (mg/dL) 267 H 247 H (70-110) mg/dL Hemoglobin A1c (0.0-6.0) % Assessment and Plan Assessment: Lung cancer with pathology unknown workup and evaluation has been done [facility] will try to obtain old records Metastatic disease cannot be excluded, recommend to consult oncology may need radiation oncology as well, Dr. Keys has been consulted COPD not in exacerbation Low back pain Lower extremity weakness due to multiple foraminal narrowing due to severe DJD workup in progress Peripheral arterial disease Extensive history of smoking and nicotine use Plan: , Continue supportive care, pain management, consult oncology and radiation oncology if patient wants to get therapy over here We'll follow closely Time with Patient: Greater than 30
[2022-10-01 17:10] LABS: Glucose,Whole Blood 310 mg/dL (70-110)
[2022-10-01 20:59] LABS: Glucose,Whole Blood 363 mg/dL (70-110)
[2022-10-02] MEDS: methylPREDNISolone SOD SUCCI 40 MG/ML 1 ML VIAL IV SCH ×2 (00:44→09:06)
--- NOTE | 2022-10-02 03:16 | PN ---
PROGRESS NOTE SUBJECTIVE: A 66-year-old white male, chronic back pain. He is up and ambulating a little bit better after an epidural. Wait for Dr. Hooker's recommendations. Bone scan is pending. OBJECTIVE: CARDIOVASCULAR: S1, S2. LUNGS: Clear. GI: Soft. HEMATOLOGY: Negative Homans. 2 to 3+ edema. PSYCH: Fair mood and affect. MUSCULOSKELETAL: 3-4/5 strength in the legs. ASSESSMENT: Chronic obstructive pulmonary disease, diastolic heart failure, lumbar radiculopathy, status post epidural shot on Dr. Hooker's recommendations. Wait for bone scan, PT, OT. Prognosis guarded. MMODL / IJN: [id number] /
[2022-10-02 06:40] LABS: Glucose,Whole Blood 403 mg/dL (70-110)
[2022-10-02] MEDS: INSULIN ASPART (NovoLOG) 100 UNIT/ML VIAL SQ SCH ×4 (06:48→21:12)
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
--- NOTE | 2022-10-02 08:38 | P.CONS ---
History of Present Illness - Reason for Consult Consult date: 10/01/22 lung cancer Requesting physician: Shaggy Fry - Chief Complaint back pain - History of Present Illness Mr. Borrego is a 66-year-old male who presented in the emergency department due to severe low back pain and difficulty ambulating. Symptoms have been worsening and symptoms have been ongoing since [place] last year after a fall. PMH HTN, DM, smoking and nicotine dependence, PAD, and lung cancer, where he has been worked up at [facility] with a lymph node biopsy/PET scan, and was scheduled for chemo and radiation therapy but treatment has been delayed due to transpo rtation issues. CT scan thoracic/lumbar spine revealed no fracture, multilevel degenerative joint disease present with mild spinal stenosis proximal lumbar spine, and multilevel foraminal stenosis at lumbar spine and continues to show mediastinal lymphadenopathy, similar to scan from 06/28. Bone scan shows 2 foci of uptake of 4th and 5th left ribs, which correlates to previous CT chest, concerns for metastatic disease. Denies SOB, cough, chest pain, no other acute symptoms. Review of Systems 10 point ROS negative except as stated in the HPI Past Medical History Past Medical History: Diabetes Mellitus, Hypertension Additional Past Medical History / Comment(s): NIDDM type II, hiatal hernia History of Any Multi-Drug Resistant Organisms: None Reported Additional Past Surgical History / Comment(s): Excision L Facial lipoma, Past Anesthesia/Blood Transfusion Reactions: No Reported Reaction Past Psychological History: No Psychological Hx Reported Smoking Status: Current every day smoker Past Alcohol Use History: None Reported Past Drug Use History: None Reported - Past Family History Mother Family Medical History: Cancer Additional Family Medical History / Comment(s): Mother of lung cancer. Father History Unknown: Yes Medications and Allergies Home Medications Medication Instructions Recorded Confirmed Type Montelukast [Singulair] 10 mg PO DAILY 09/30/19 09/29/22 History Repaglinide [Prandin] 1 mg PO DAILY 09/30/19 09/29/22 History Aspirin [Adult Low Dose Aspirin EC] 81 mg PO DAILY 04/15/22 09/29/22 History Atorvastatin [Lipitor] 40 mg PO DAILY 04/15/22 09/29/22 History glyBURIDE [Diabeta] 5 mg PO BID 04/15/22 09/29/22 History methocarbamoL [Robaxin] 500 mg PO BID PRN 30 Days #60 tab 04/30/22 09/29/22 Rx rOPINIRole HCL [Requip] 1 mg PO TID 06/02/22 09/29/22 History Gabapentin 600 mg PO TID 06/17/22 09/29/22 History Pioglitazone [Actos] 15 mg PO BID 06/17/22 09/29/22 History Potassium Chloride [Klor-Con M20] 20 meq PO DAILY 06/17/22 09/29/22 History atenoloL [Tenormin] 50 mg PO BID 06/17/22 09/29/22 History traMADol HCL 50 mg PO TID PRN 06/17/22 09/29/22 History Furosemide [Lasix] 20 mg PO DAILY 09/29/22 09/29/22 History Metoprolol Tartrate [Lopressor] 12.5 mg PO BID 09/29/22 09/29/22 History Allergies Allergy/AdvReac Type Severity Reaction Status Date / Time No Known Allergies Allergy Verified 09/29/22 19:58 Physical Exam Vitals: Vital Signs Temp Pulse Resp BP Pulse Ox 10/01/22 08:26 18 10/01/22 06:22 98.7 F 77 17 124/66 95 10/01/22 02:17 98.3 F 77 18 110/63 90 L 09/30/22 19:23 98.0 F 83 18 113/56 91 L Intake and Output 09/30/22 10/01/22 10/01/22 22:59 06:59 14:59 Intake Total 540 Output Total 300 350 Balance -300 190 Intake: Oral 540 Output: Urine 300 350 Other: Voiding Method Urinal Urinal # Voids 1 Weight 81.647 kg - Constitutional General appearance: average body habitus, no acute distress - EENT Eyes: anicteric sclerae, EOMI ENT: hearing grossly normal - Neck Neck: no lymphadenopathy, normal ROM - Respiratory Respiratory: bilateral: CTA - Cardiovascular Rhythm: regular Heart sounds: normal: S1, S2 Abnormal Heart Sounds: no systolic murmur, no diastolic murmur, no rub, no S3 Gallop, no S4 Gallop, no click, no other leg Peripheral Edema: bilateral: None - Gastrointestinal General gastrointestinal: no absent bowel sounds, no decreased bowel sounds, no distended, no hepatomegaly, no hyperactive bowel sounds, normal bowel sounds, no organomegaly, no rigid, no scaphoid, soft, no splenomegaly, no tenderness, no umbilical hernia, no ventral hernia - Integumentary Integumentary: normal - Neurologic lower extremity weakness, no other focal deficits - Musculoskeletal Musculoskeletal: generalized weakness - Psychiatric Psychiatric: A&O x's 3, appropriate affect, intact judgment & insight Results CBC & Chem 7: 09/29/22 18:57 09/29/22 18:57 Labs: Abnormal Lab Results - Last 24 Hours (Table) 09/29/22 09/30/22 09/30/22 Range/Units 18:57 15:56 20:17 POC Glucose (mg/dL) 420 H 308 H (70-110) mg/dL Hemoglobin A1c 6.5 H (0.0-6.0) % 10/01/22 10/01/22 Range/Units 06:09 11:31 POC Glucose (mg/dL) 267 H 247 H (70-110) mg/dL Hemoglobin A1c (0.0-6.0) % Comments: CT lumbar/thoracic, and bone scan reviewed Assessment and Plan (1) Lung cancer Current Visit: Yes Status: Acute Priority: High Code(s): C34.90 - MALIGN ANT NEOPLASM OF UNSP PART OF UNSP BRONCHUS OR LUNG SNOMED Code(s): 840010912 Plan: Lung cancer: -Pt is being worked up for lung cancer at [facility]. Pt reports he had a PET scan 2 weeks ago, but has been unable to make his chemotherapy/radiation treatments due to challenges with transportation and ambulation. -He states that he does not want to start treatment in [place], as he lives in [facility], and wants to keep his care/treatments locally -CT thoracic/lumbar spine with contrast revealed no fracture, multilevel degenerative joint disease present with mild spinal stenosis proximal lumbar spine, and multilevel foraminal stenosis at lumbar spine and continues to show mediastinal lymphadenopathy, similar to scan from 06/28. Bone scan shows 2 foci of uptake of 4th and 5th left ribs, which correlates to previous CT chest, concerns for metastatic disease. We will ensure his oncologist gets current scans from this admission -Pt is cleared from Hem/Onc standpoint once cleared by other medical specialities Attests: I have seen and examined pt, performed H&P, developed impression and plan of care. Discussed with dictator. Agree with documentation, dictated as a scribe
[2022-10-02] MEDS: atenoloL 50 MG TAB PO SCH ×2 (09:05→21:11)
[2022-10-02] MEDS: FUROSEMIDE 20 MG TAB PO SCH (09:05)
[2022-10-02] MEDS: REPAGLINIDE 1 MG TAB PO SCH (09:06)
[2022-10-02] MEDS: MONTELUKAST 10 MG TAB PO SCH (09:06)
[2022-10-02] MEDS: ATORVASTATIN 40 MG TAB PO SCH (09:06)
[2022-10-02] MEDS: PIOGLITAZONE 15 MG TAB PO SCH ×2 (09:06→21:12)
[2022-10-02] MEDS: POTASSIUM CHLORIDE ER 20 MEQ TAB.ER PO SCH (09:06)
[2022-10-02] MEDS: ASPIRIN 81 MG PO SCH (09:06)
[2022-10-02] MEDS: METOPROLOL TARTRATE 12.5 MG TAB PO SCH ×2 (09:06→21:12)
[2022-10-02] MEDS: GABAPENTIN 300 MG CAP PO SCH ×3 (09:06→21:11)
[2022-10-02] MEDS: glipiZIDE 10 MG TAB PO SCH ×2 (09:06→21:11)
--- NOTE | 2022-10-02 12:32 | FL ---
EXAMINATION TYPE: FL myelogram 2 or more regions DATE OF EXAM: 10/02/2022 11:46 AM HISTORY: Lower extremity pain and numbness Informed consent was obtained and all the patient's questions were answered. The L3-L4 level was loc alized under fluoroscopy. Standard sterile technique was utilized as well as appropriate local anest hesia 1% Lidocaine and sodium bicarbonate. Spinal needle was introduced into the thecal sac under fl uoroscopic guidance and 15 mL isovue M300 injected. The patient tolerated the procedure well and lef t the department in stable condition. CT myelography thoracic and lumbar is to follow. 3 min 3 sec fl. 1 image IMPRESSION: Successful myelography spine.
--- NOTE | 2022-10-02 12:46 | CT ---
EXAMINATION TYPE: CT thor lumbar spine w con DATE OF EXAM: 10/02/2022 COMPARISON: Unenhanced study 09/29/2022 HISTORY: myelogram for back pain CT DLP: 3.1 mGycm Automated exposure control for dose reduction was used. CONTRAST: Performed with intrathecal contrast. Patient injected with 15cc mL of Isovue M300. FINDINGS: There is limited opacification of the upper thoracic spine thecal sac from T1 through T4. This is nando pite delayed imaging and patient tilting. Thoracic spine: At C5-6 there is mild degenerative disc space narrowing with posterior disc bulge and partial encapsulating spur resulting in hard disc. There is mild effacement ventral thecal sac. No e vidence for central stenosis or disc herniation. Vacuum disc changes with severe degenerative disc di sease extending from T6 through T11. Mild posterior disc bulge however no evidence of disc herniation , protrusion or central stenosis. Scattered ventral spondylosis. Thoracic segments are intact. T1-T4 appear to be within normal limits. Lumbar spine: Please note there appears to be partially sacralized L5 segment. Prior to any scheduled surgical inte rvention radiographic correlation is advised. Moderate degenerative disc space narrowing at L2-3 and L3-4 with posterior disc bulge and hypertrophy of the ligamentum flavum and facet joint arthropathy resulting in mild central stenosis. Mild vacuum disc at L4-5. Posterior disc bulge resulting in bilateral lateral recess stenosis. No evidence for c entral stenosis. Foramina are patent bilaterally. Vacuum disc at L1-2 with mild posterior disc bulge. No herniation or central stenosis. Normal-appearing L5-S1 disc. IMPRESSION: 1. Mild central stenosis at L2-3 and L3-4. 2. Otherwise multilevel degenerative disc disease as noted above.
--- NOTE | 2022-10-02 14:49 | P.CONS ---
History of Present Illness - Reason for Consult Consult date: 10/02/22 Non-small cell lung cancer - Chief Complaint "I have disc issues" - History of Present Illness Mr. Borrego is a 66-year-old male with stage IIIA (cT0, cN2, cM0) adenocarcinoma of the right lung. His pertinent history begins with shortness of breath in 06/2022. This prompted CT angiogram chest on 07/07/2022. This demonstrated multiple enlarged right hilar and mediastinal lymph nodes with mass effect of the right upper and lower lobe segmental airways. Bronchoscopy on 07/17/2022 demonstrated adenocarcinoma of the 4R level. PET/CT on 08/25/2022 demonstrated FDG-avid right hilar and paratreacheal lymph nodes along with a right level IIII node with low avidity. The patient was scheduled to meet with me in [place] last week for radiation simulation but did not come. There have been compliance issues due to his social situation. He is living with his ex- but due to his degenerative back disease he is unable to ambulate and needs significant care. He does not have transportation, either. He has been working with our nursing and social work staff in [place] to attempt to find a viable solution for this. More recently, he has presented to this facility with acute/chronic back pain. CT thoracic/lumbar spine is consistent with canal stenosis and disc disease. He did also have nuclear bone scan which suggested possible left rib foci of disease, however these areas are not avid on his PET scan. Today he notes he is doing well though reiterates he has no means of coming to the hospital for radiation treatments. Review of Systems All systems: negative (back pain) Past Medical History Past Medical History: Diabetes Mellitus, Hypertension Additional Past Medical History / Comment(s): NIDDM type II, hiatal hernia History of Any Multi-Drug Resistant Organisms: None Reported Additional Past Surgical History / Comment(s): Excision L Facial lipoma, Past Anesthesia/Blood Transfusion Reactions: No Reported Reaction Past Psychological History: No Psychological Hx Reported Smoking Status: Current every day smoker Past Alcohol Use History: None Reported Past Drug Use History: None Reported - Past Family History Mother Family Medical History: Cancer Additional Family Medical History / Comment(s): Mother of lung cancer. Father History Unknown: Yes Medications and Allergies Home Medications Medication Instructions Recorded Confirmed Type Montelukast [Singulair] 10 mg PO DAILY 09/30/19 09/29/22 History Repaglinide [Prandin] 1 mg PO DAILY 09/30/19 09/29/22 History Aspirin [Adult Low Dose Aspirin EC] 81 mg PO DAILY 04/15/22 09/29/22 History Atorvastatin [Lipitor] 40 mg PO DAILY 04/15/22 09/29/22 History glyBURIDE [Diabeta] 5 mg PO BID 04/15/22 09/29/22 History methocarbamoL [Robaxin] 500 mg PO BID PRN 30 Days #60 tab 04/30/22 09/29/22 Rx rOPINIRole HCL [Requip] 1 mg PO TID 06/02/22 09/29/22 History Gabapentin 600 mg PO TID 06/17/22 09/29/22 History Pioglitazone [Actos] 15 mg PO BID 06/17/22 09/29/22 History Potassium Chloride [Klor-Con M20] 20 meq PO DAILY 06/17/22 09/29/22 History atenoloL [Tenormin] 50 mg PO BID 06/17/22 09/29/22 History traMADol HCL 50 mg PO TID PRN 06/17/22 09/29/22 History Furosemide [Lasix] 20 mg PO DAILY 09/29/22 09/29/22 History Metoprolol Tartrate [Lopressor] 12.5 mg PO BID 09/29/22 09/29/22 History Allergies Allergy/AdvReac Type Severity Reaction Status Date / Time No Known Allergies Allergy Verified 09/29/22 19:58 Physical Exam Vitals: Vital Signs Temp Pulse Resp BP Pulse Ox 10/02/22 11:23 70 18 150/83 97 10/02/22 11:05 65 18 150/76 97 10/02/22 07:25 97.5 F L 70 18 131/76 95 10/02/22 03:06 97.4 F L 73 17 124/62 94 L 10/01/22 20:29 98.1 F 73 17 124/66 96 10/01/22 15:00 98.3 F 72 18 136/76 94 L Intake and Output 10/01/22 10/02/22 10/02/22 22:59 06:59 14:59 Intake Total 600 Output Total 830 Balance -830 600 Intake: Oral 600 Output: Urine 830 Other: Voiding Method Urinal # Voids 1 - Constitutional General appearance: average body habitus, cooperative - Respiratory Respiratory: negative: prolonged expiration, prolonged inspiration - Cardiovascular Rhythm: regular - Psychiatric Psychiatric: appropriate affect Results CBC & Chem 7: 09/29/22 18:57 09/29/22 18:57 Labs: Abnormal Lab Results - Last 24 Hours (Table) 10/01/22 10/01/22 10/02/22 Range/Units 17:09 20:57 06:39 POC Glucose (mg/dL) 310 H 363 H 403 H (70-110) mg/dL Assessment and Plan Assessment: Mr. Borrego is a 66-year-old male with stage IIIA (cT0, cN2, cM0) adenocarcinoma of the right lung. Plan: Mr. Borrego has a locoregionally advanced lung cancer. I recommend a course of concurrent chemoradiotherapy. His back pain does not appear oncological in nature, but limits his mobility/functionality and is a barrier to him successfully pursuing treatment. He wishes to complete his cancer treatment at [facility]. I have reached out to my nurse navigator who will continue to work on coordination of care for him in [place]. No acute oncological intervention indicated. Frankie Amaya MD Time with Patient: Less than 30
[2022-10-02 14:53] LABS: Glucose,Whole Blood 416 mg/dL (70-110)
[2022-10-02 17:31] LABS: Glucose,Whole Blood 291 mg/dL (70-110)
[2022-10-02] MEDS ORDERED: LORazepam 0.5 MG TAB PO PRN (17:45)
[2022-10-02 20:50] LABS: Glucose,Whole Blood 267 mg/dL (70-110)
[2022-10-03 06:27] LABS: Glucose,Whole Blood 197 mg/dL (70-110)
[2022-10-03] MEDS: INSULIN ASPART (NovoLOG) 100 UNIT/ML VIAL SQ SCH ×4 (06:37→21:01)
--- NOTE | 2022-10-03 08:29 | P.PN ---
Subjective Progress Note Date: 10/03/22 Principal diagnosis: Low back pain Bilateral lower extremity weakness Inability to ambulate Patient seen and examined this morning. He was resting in bed and was able to move himself to be sitting at edge of bed, with no difficulty. Patient continues to have complaint of lower back pain and inability to ambulate. Patient states he does have numbness and tingling in bilateral lower extremities, right leg greater than the left. He states when he is able to ambulate with walker his right leg will give out and this is why he is falling. Patient is very emotional this morning wanting to have surgery and get his back fixed so he can get back home, which is out of state. Dr. Hooker will be up later today to discuss surgical options with patient. Patient has been af ebrile, denies nausea/vomiting, or chest pain. Objective - Vital Signs Vital signs: Vital Signs Temp 98.0 F 10/03/22 01:40 Pulse 60 10/03/22 01:40 Resp 14 10/03/22 01:40 BP 155/72 10/03/22 01:40 Pulse Ox 96 10/03/22 01:40 FiO2 Intake & Output 10/02/22 10/03/22 10/03/22 18:59 06:59 18:59 Intake Total 1140 480 Output Total 325 650 Balance 815 -170 Intake: Oral 1140 480 Output: Urine 325 650 Other: Voiding Method Urinal - Exam Physical Examination General: The patient is awake and alert, in no acute distress Skin: Skin is warm and dry with no obvious rashes or lesions. Hairy patches absent, no dorsal skin dimples, no cafe au lait spots, and no surgical incisions. Eye: Pupils are equal, round and reactive to light, extra-ocular movements are intact; there is normal conjunctiva bilaterally. Neck: The neck is supple, there is no tenderness and ROM intact. Cardiovascular: There is a regular rate and rhythm. No murmur, rub or gallop is appreciated. Respiratory: Lungs are clear to auscultation, respirations are non-labored, breath sounds are equal. Gastrointestinal: Soft, non-distended, non-tender abdomen. Back: There is no tenderness to palpation in the midline, paralumbar, parathoracic or buttocks region. There is no obvious deformity . Musculoskeletal: ROM limited secondary to pain and stiffness from surgical procedure. Muscle strength in all major muscle groups of bilateral upper extremities 4+/5, bilateral lower extremities 4/5. Neurological: CN 2-12 intact. There are no obvious motor or sensory deficits. Movement and coordination equal and intact. Sensory exam to light touch intact C5-T1 and intact from L2-S1. Reflexes 2/4 in bilateral upper and lower extremities. Negative Hoffmans, babinski, and clonus signs. Psychiatric: Cooperative, appropriate mood & affect, normal judgment. - Labs CBC & Chem 7: 09/29/22 18:57 09/29/22 18:57 Labs: Abnormal Lab Results - Last 24 Hours (Table) 10/02/22 10/02/22 10/02/22 Range/Units 14:52 17:30 20:48 POC Glucose (mg/dL) 416 H 291 H 267 H (70-110) mg/dL 10/03/22 Range/Units 06:26 POC Glucose (mg/dL) 197 H (70-110) mg/dL Assessment and Plan Assessment: Low back pain Bilateral lower extremity weakness Bilateral lower extremity radiculopathy Possible metastatic disease, the bone scan showing fourth and fifth rib uptakes along with sclerotic chest foci Lumbar spondylosis with stenosis Neurogenic claudication Plan: Plan: -Appreciate lifestyle consultant and team management. -Activity: Ambulate QID, OOB all meals, up and about, limit lifting bending twisting to less than 5 lbs. Use walker or cane if needed for stability. -Daily PT/OT, increase ambulation strength and balance. -Pain control: Adequate at this time -Meds: reviewed -GI ppx: senna, Miralax -DVT PPX: aspirin -Encourage IS 10x/hr *We will continue to follow patient, Dr. Hooker will be up to patient's room later today to discuss possible surgical procedure I reviewed and discussed this case with my attending Dr. Hooker, whom has reviewed this chart and films and is in agreement with assessment and plan of care as outlined above. I have personally seen and examined the patient, performed the documentation and the assessment and plan as written. Number of minutes spent on the visit: 20m.
[2022-10-03] MEDS: PIOGLITAZONE 15 MG TAB PO SCH ×2 (09:02→21:01)
[2022-10-03] MEDS: ATORVASTATIN 40 MG TAB PO SCH (09:02)
[2022-10-03] MEDS: FUROSEMIDE 20 MG TAB PO SCH (09:02)
[2022-10-03] MEDS: MONTELUKAST 10 MG TAB PO SCH (09:03)
[2022-10-03] MEDS: atenoloL 50 MG TAB PO SCH ×2 (09:03→21:01)
[2022-10-03] MEDS: POTASSIUM CHLORIDE ER 20 MEQ TAB.ER PO SCH (09:03)
[2022-10-03] MEDS: METOPROLOL TARTRATE 12.5 MG TAB PO SCH ×2 (09:03→21:01)
[2022-10-03] MEDS: GABAPENTIN 300 MG CAP PO SCH ×3 (09:03→21:01)
[2022-10-03] MEDS: glipiZIDE 10 MG TAB PO SCH ×2 (09:03→21:01)
[2022-10-03] MEDS: REPAGLINIDE 1 MG TAB PO SCH (09:07)
[2022-10-03 11:19] LABS: Glucose,Whole Blood 209 mg/dL (70-110)
--- NOTE | 2022-10-03 13:37 | PN ---
PROGRESS NOTE DATE OF SERVICE: 10/02/2022 SUBJECTIVE: A 66-year-old white male with chronic back pain. He is only able to ambulate 2 steps status post lumbar epidural. He is waiting for CT myelogram and Dr. Hooker possibly can do surgery on him as his legs give out on him and he cannot walk. His bone scan did show 2 anterior rib areas which are not new, which is good as he has been fighting non-small cell cancer. He wants back surgery so he can ambulate. He continues on current treatment. PHYSICAL EXAMINATION: VITAL SIGNS: Stable, afebrile. CARDIOVASCULAR: S1, S2. LUNGS: Clear. EXTREMITIES: 2 to 3+ edema. HEMATOLOGY: Negative Homans. PSYCH: Fair mood and affect. ASSESSMENT: Non-small cell lung cancer, lumbar degenerative disk disease with neuritis and leg weakness with neuropathy. Hopefully, PT OT can get involved and epidural shots helped a little. Hopefully, Dr. Hooker gets a recommendations prior to him going home. He is unable to ambulate, he is very upset about this. He wants his back fixed. Hopefully, Dr. Hooker can operate on him. MMODL / IJN: [id number] /
--- NOTE | 2022-10-03 14:49 | P.PN ---
Progress Note - Text Progress Note Date: 10/03/22 Discussed patients Lumbar and thoracic myelogram results with Dr. Hooker. PT reports that patient has been ambulatory within room with staff utilizing the walker. They were able to assess patient and states that he is tolerating activity well, but does report pain in lower back with activity. Recommend taper dose of oral steroids at discharge. At this time, there is no urgent or emergent surgical procedure to be performed. Patient may follow up in office with Dr. Hooker to discuss and schedule surgery. Our services are signing off at this time. Please feel free to reach out with any questions or concerns.
[2022-10-03 16:31] LABS: Glucose,Whole Blood 271 mg/dL (70-110)
[2022-10-03 20:35] LABS: Glucose,Whole Blood 178 mg/dL (70-110)
[2022-10-04] MEDS: traMADol 50 MG TAB PO PRN ×2 (01:21→10:23)
[2022-10-04 03:15] VITALS: TEMP 97.6
[2022-10-04 06:05] LABS: Glucose,Whole Blood 190 mg/dL (70-110)
[2022-10-04] MEDS: INSULIN ASPART (NovoLOG) 100 UNIT/ML VIAL SQ SCH ×2 (06:36→12:03)
--- NOTE | 2022-10-04 06:56 | PN ---
PROGRESS NOTE SUBJECTIVE: A 66-year-old white male, chronic back pain, status post lumbar epidural. Seen by Dr. Hooker and will follow up in his office next week. Continue current treatment. PT, OT. He will be able to go home over the weekend. He is stable for discharge. OBJECTIVE: CARDIOVASCULAR: S1, S2. LUNGS: Clear. GI: Soft. HEMATOLOGY: 2+ edema, 3+ edema. Leg strength 3/3, 3.5 to 4/5 both legs. He can walk 2 feet, 2 steps. PLAN: Need lumbar surgery in the next couple weeks with Dr. Hooker. He is going to see him in the office next week. Status post lumbar epidural. MMODL / IJN: [id number] /
[2022-10-04 09:47] VITALS: BP 103/63; PULSE 72; RESP 19
[2022-10-04] MEDS: POTASSIUM CHLORIDE ER 20 MEQ TAB.ER PO SCH (10:08)
[2022-10-04] MEDS: atenoloL 50 MG TAB PO SCH (10:08)
[2022-10-04] MEDS: MONTELUKAST 10 MG TAB PO SCH (10:08)
[2022-10-04] MEDS: GABAPENTIN 300 MG CAP PO SCH (10:08)
[2022-10-04] MEDS: FUROSEMIDE 20 MG TAB PO SCH (10:08)
[2022-10-04] MEDS: ATORVASTATIN 40 MG TAB PO SCH (10:08)
[2022-10-04] MEDS: glipiZIDE 10 MG TAB PO SCH (10:09)
[2022-10-04] MEDS: METOPROLOL TARTRATE 12.5 MG TAB PO SCH (10:09)
[2022-10-04] MEDS: PIOGLITAZONE 15 MG TAB PO SCH (10:09)
[2022-10-04] MEDS: REPAGLINIDE 1 MG TAB PO SCH (10:10)
--- NOTE | 2022-10-04 10:16 | P.PN ---
Subjective Progress Note Date: 10/04/22 Principal diagnosis: Lung cancer with pathology unknown workup and evaluation has been done at [facility] will try to obtain old records Metastatic disease cannot be excluded, recommend to consult oncology may need radiation oncology as well, Dr. Keys has been consulted COPD not in exacerbation Low back pain Lower extremity weakness due to multiple foraminal narrowing due to severe DJD workup in progress Peripheral arterial disease Extensive history of smoking and nicotine use 10/04/2022, patient seen evnd examined during rounds labs reviewed medications reviewed still have ongoing pain but severity has improved, patient is epidural shot 1, oncology has evaluated the patient it is not clear whether he wants to get his further care in [facility] or go back to [facility]. Review of the records revealed that as per hematology/oncology patient wants to go back to [place] for more definitive care once back pain issues are taking care. From respiratory point is still have shortness of breath however denies any fever or chills denies any cough or hemoptysis, get short of breath on minimal activity and exertion patient however is on room air sats mid 90s 10/01/2022, patient seen eval examined during the rounds labs reviewed medications reviewed, swelling in the lower extremity slightly improved, shortness of breath stable, ongoing dyspnea on exertion is present, ongoing still have some cough, she remains on IV steroids bronchodilators and the diuretics, pain in the back has improved, patient is being considered for epidural, finally bone scan has been done2 foci of uptake within fourth and fifth rib corresponding to CT chest urine foci raises concern for metastatic disease, awaiting oncology evaluation 66-year-old male who presented in the emergency department due to severe low back pain and inability to walk patient has been having ongoing symptoms since [facility] last year. Patient has a extensive history of smoking and nicotine use with complication of peripheral arterial disease also has been found with mediastinal lymphadenopathy he had workup and evaluation at [facility] with a lymph node biopsy and was scheduled for chemo and radiation therapy but however due to logistic reasons reason patient decided not to go there. Patient is weak in the lower extremity and seeking epidural shot however now getting further workup and evaluation with a question of metastatic disease. Patient is overall a poor historian has a rather complex medical issues including peripheral arterial disease, diabetes mellitus with severe hyperglycemia and uncontrolled, hypertension hypertensive cardiovascular disease and stents m ultiple in the lower extremities computed tomography scan of the spine revealed no fracture of lumbar disc, multilevel degenerative joint disease present with mild spinal stenosis in including foraminal stenosis at lumbar spine and continue show mediastinal lymphadenopathy unchanged from June 2022 Objective - Vital Signs Vital signs: Vital Signs Temp 97.6 F 10/04/22 07:52 Pulse 72 10/04/22 07:52 Resp 19 10/04/22 07:52 BP 103/63 10/04/22 07:52 Pulse Ox 97 10/04/22 07:52 FiO2 Intake & Output 10/03/22 10/04/22 10/04/22 18:59 06:59 18:59 Intake Total 1080 480 Output Total 950 Balance 1080 -470 Weight 81.647 kg Intake: Oral 1080 480 Output: Urine 950 Other: # Voids 2 # Bowel Movements 1 - Exam - Constitutional General appearance: average body habitus, cooperative, disheveled, mild distress - EENT Eyes: EOMI, PERRLA Ears: bilateral: normal - Neck Neck: normal ROM Carotids: bilateral: upstroke normal Thyroid: bilateral: normal size - Respiratory Respiratory: bilateral: CTA - Cardiovascular Rhythm: regular Heart sounds: normal: S1, S2 - Gastrointestinal General gastrointestinal: normal bowel sounds - Integumentary Integumentary: normal turgor - Neurologic Neurologic: CNII-XII intact - Musculoskeletal Musculoskeletal: generalized weakness - Psychiatric Psychiatric: A&O x's 3, appropriate affect, intact judgment & insight - Labs CBC & Chem 7: 09/29/22 18:57 09/29/22 18:57 Labs: Abnormal Lab Results - Last 24 Hours (Table) 10/03/22 10/03/22 10/03/22 Range/Units 11:17 16:29 20:33 POC Glucose (mg/dL) 209 H 271 H 178 H (70-110) mg/dL 10/04/22 Range/Units 06:03 POC Glucose (mg/dL) 190 H (70-110) mg/dL Assessment and Plan Assessment: Lung cancer with pathology unknown workup and evaluation has been done at [facility] patient expressed wants to get further care Metastatic disease cannot be excluded, hematology oncology recommendation noted and appreciated COPD not in exacerbation Low back pain Lower extremity weakness due to multiple foraminal narrowing due to severe DJD workup in progress Peripheral arterial disease Extensive history of smoking and nicotine use Plan: , Continue supportive care, pain management, consult oncology and radiation oncology if patient wants to get therapy over here We'll follow closely Time with Patient: Greater than 30
[2022-10-04 11:48] LABS: Glucose,Whole Blood 188 mg/dL (70-110)
--- NOTE | 2022-10-04 14:50 | DS ---
DISCHARGE SUMMARY FINAL DIAGNOSES: 1. Lumbosacral degenerative joint disease, status post epidural. 2. History of lung cancer. 3. Diabetes mellitus, type 2. 4. Hypertension. 5. Multiple medical issues. DISCHARGE DISPOSITION: The patient will be discharged in stable condition and guarded prognosis. HISTORY OF PRESENT ILLNESS: This 66-year-old gentleman with a past medical history of multiple medical problems, being followed by Dr. Atkinson, was admitted with severe back pain. The patient had epidural injection by Dr. Hooker. The patient also had a lung cancer, being worked up at [facility]. Currently, the patient is feeling better, and the patient will be discharged in stable condition and guarded prognosis after clearance from consultants. PHYSICAL EXAMINATION: VITAL SIGNS: Stable. CARDIOVASCULAR: S1 and S2. ABDOMEN: Soft. NERVOUS SYSTEM: No focal deficits. DISCHARGE MEDICATIONS: Continue the home medications and continue the Ultram for pain management. FOLLOWUP: Follow up with Dr. Atkinson, Dr. Hooker, and Oncology as recommended. Once again, the prognosis is guarded. MMODL / IJN: [id number] /
== END 2022-10-04 14:05 | disposition home or self-care (01) | DRG 552 ==
LOC: EC 15:44 → 4SSUR 20:55
PROVIDERS: ADMIT Family Medicine; ATTEND Family Medicine
PROC: 3E0R3BZ Introduction of Anesthetic Agent into Spinal Canal, Percutaneous Approach (ICD-10-PCS; principal; 2022-09-30 15:00)
PROC: B01B1ZZ Fluoroscopy of Spinal Cord using Low Osmolar Contrast (ICD-10-PCS; principal; 2022-09-30 15:00)
PROC: 3E0R33Z Introduction of Anti-inflammatory into Spinal Canal, Percutaneous Approach (ICD-10-PCS; principal; 2022-09-30 15:00)
DX: M51.16 Intervertebral disc disorders with radiculopathy, lumbar region (principal); C34.91 Malignant neoplasm of unspecified part of right bronchus or lung; I50.30 Unspecified diastolic (congestive) heart failure; C79.51 Secondary malignant neoplasm of bone; M48.062 Spinal stenosis, lumbar region with neurogenic claudication; M47.26 Other spondylosis with radiculopathy, lumbar region; J44.9 Chronic obstructive pulmonary disease, unspecified; E11.65 Type 2 diabetes mellitus with hyperglycemia; E11.51 Type 2 diabetes mellitus with diabetic peripheral angiopathy without gangrene; K44.9 Diaphragmatic hernia without obstruction or gangrene; F17.200 Nicotine dependence, unspecified, uncomplicated; E11.621 Type 2 diabetes mellitus with foot ulcer; L97.512 Non-pressure chronic ulcer of other part of right foot with fat layer exposed; E11.40 Type 2 diabetes mellitus with diabetic neuropathy, unspecified; G89.29 Other chronic pain; I11.0 Hypertensive heart disease with heart failure; M41.9 Scoliosis, unspecified; Z79.84 Long term (current) use of oral hypoglycemic drugs; Z86.018 Personal history of other benign neoplasm; Z91.199 Patient's noncompliance with other medical treatment and regimen due to unspecified reason; Z79.899 Other long term (current) drug therapy; Z79.82 Long term (current) use of aspirin
CPT/HCPCS: 36415; 62305; 62323; 72129; 72132; 78306; 80053; 81001; 83036; 83735; 83880; 85025; 96374; 96375; 99285

== ENCOUNTER → 2022-11-28 | Outpatient (CLI) | payer MEDICARE, OTHER | END | disposition home or self-care (01) | LOC: LABPAT 11:31 | PROVIDERS: ATTEND Orthopaedic Surgery | DX: Z01.812 Encounter for preprocedural laboratory examination (principal); Z22.322 Carrier or suspected carrier of Methicillin resistant Staphylococcus aureus; M47.816 Spondylosis without myelopathy or radiculopathy, lumbar region; M48.061 Spinal stenosis, lumbar region without neurogenic claudication | CPT/HCPCS: 87070 ==

== ENCOUNTER 2022-12-18 09:57 | Inpatient (IN) | payer MEDICARE ==
[~2022-12-18 09:57] MED LIST changes: +ACETAMINOPHEN TAB 500 MG TAB PO PRN; +GABAPENTIN 300 MG CAP PO PRN; -IOPAMIDOL M200 10 ML VIAL ONE; +ONDANSETRON 4 MG/2 ML VIAL IVP PRN; +TRANEXAMIC ACID IN NACL,ISO-OS 1,000 MG in SALINE 1 100ML.BAG IVPB PRN; -methylPREDNISolone ACETATE 40 MG/ML 1 ML VIAL ONE
[2022-12-18 10:55] LABS: Glucose,Whole Blood 152 mg/dL (70-110)
[2022-12-18] MEDS: LACTATED RINGERS 1,000 ML IV ONE ×5 (11:03→16:38)
[2022-12-18] MEDS ORDERED: DEXAMETHASONE SOD PHOSPHATE 4 MG/ML 1 ML VIAL IV ONE (11:06)
--- NOTE | 2022-12-18 11:46 | P.HPOR ---
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 multilevel spondylitic changes with preserved alignment. Osteophytes noted at multiple levels. Diminished disc height with vacuum disc phenomenon at multiple levels. No acute osseous abnormalities. CT myelogram from 10/02/22 done at [facility]: this demonstrates multilevel degenerative changes with spondylosis from L1 through S1. There are vacuum disc phenomena noted L2-3 and L3 4 L4 5 and L5- S1. Flattening of the normal lumbar lordosis noted. There is a lumbarization of the sacral 1 segment. Very degrees of bony and soft tissue stenosis noted due to facet hypertrophy causing moderate to severe central and bilateral foraminal stenosis throughout. ligamental hypertrophy and presumed epidural lipomatosis also contributing to stenosis is most severe at L3-L4 where there is posterior body bony formation. No acute fractures noted.this is compared to a CT from 09/29/2022 and 02/05/2022 and shows progression of his pathology. On physical exam, Mr. Borrego demonstrates the following findings: -Continued symptoms despite exhaustive conservative management -Progressive symptoms of lower extremity weakness and neurogenic claudication that correlate with level of disease. That is last him to be now wheelchair- bound he is also presented to the emergency department on several times with increasing symptomatic complaints and weakness -Dermatomal deficits and paresthesias L2-L3 L3-L4 and L4-L5 that correlate with imaging and findings decreased muscle tone and 1/4 reflexes in bilateral lower extremities -Roman's sign Negative bilaterally -Frequent falls -Gait abnormalities related to pathology -no severe tensioning symptoms increased radiculopathy with increased motion We have had a chance to discuss their treatment and symptoms including the natural course history without intervention and various interventional options. I have explained to the patient that as their condition progresses it could cause further neurological deficits and potential paralysis and/or future complications. Based on the patients imaging, physical exam, and the progression and disabling nature of their symptoms, at this time I recommend surgical intervention. I discussed the risk and benefits of this procedure at length with Mr. Borrego. The patient and their family members agreed to considered pursuing the procedure below. Prior to surgery, the patient will follow up with her PCP (Cardio, ID, IM etc) for clearance. Questions were invited and answered, and the patient wishes to proceed as outlined below. Assessment: - L1 to S1 spondylosis with moderate to severe stenosis L2 to S1 - neurogenic claudication - lower extremity radiculopathy with bilateral lower extremity weakness -complex medical patient Currently, I am recommending: - L2 to S1 decompressive laminectomy - Follow up with PCP for surgical clearance - Review of surgical risks and benefits as well as an educational packet on the proposed surgical procedure. The patient has had a chance to review all the listed information, has been given print outs detailing this information, and has had all his/her questions answered to their satisfaction. In conclusion, Mr. Borrego and his spouse requested we proceed with the above suggested surgery and are willing to accept risks and limitations of the suggested surgery as nature of the disease process and our best attempts at treatment for the condition. Thank you again for allowing us to be part of your patient's care. Please don't hesitate to contact me if you have any further questions. Signed and authenticated by: [facility] [address] [place] [id number] # SIGNED BY Martinez Hooker (GOO)12/10/2022 08:28AM Past Medical History Past Medical History: COPD, CVA/TIA, Diabetes Mellitus, Hypertension, Musculoskeletal Disorder Additional Past Medical History / Comment(s): Hx. "mini stroke after 2nd covid shot", states has been on blood thinners since TIA 2020, hx. fall last 2021 that injured back, frequent falls History of Any Multi-Drug Resistant Organisms: None Reported Past Surgical History: Hernia Repair Additional Past Surgical History / Comment(s): Excision L Facial lipoma, repair hiatal hernia Past Anesthesia/Blood Transfusion Reactions: No Reported Reaction Smoking Status: Former smoker - Past Family History Mother Family Medical History: Cancer Additional Family Medical History / Comment(s): Mother of lung cancer. Father History Unknown: Yes Medications and Allergies Home Medications Medication Instructions Recorded Confirmed Type Montelukast [Singulair] 10 mg PO DAILY 09/30/19 12/18/22 History Repaglinide [Prandin] 1 mg PO TID 09/30/19 12/18/22 History Aspirin [Adult Low Dose Aspirin EC] 81 mg PO DAILY 04/15/22 12/17/22 History Atorvastatin [Lipitor] 40 mg PO DAILY 04/15/22 12/18/22 History glyBURIDE [Diabeta] 5 mg PO BID 04/15/22 12/18/22 History methocarbamoL [Robaxin] 500 mg PO BID PRN 30 Days #60 tab 04/30/22 12/18/22 Rx rOPINIRole HCL [Requip] 1 mg PO TID 06/02/22 12/18/22 History Gabapentin 600 mg PO TID 06/17/22 12/18/22 History Potassium Chloride [Klor-Con M20] 20 meq PO DAILY 06/17/22 12/18/22 History atenoloL [Tenormin] 50 mg PO BID 06/17/22 12/18/22 History Furosemide [Lasix] 20 mg PO DAILY 09/29/22 12/18/22 History Acetaminophen Tab [Tylenol Tab] 500 mg PO Q6H PRN #30 tablet 10/04/22 12/18/22 Rx Apixaban [Eliquis] 5 mg PO BID 12/05/22 12/17/22 History Clopidogrel [Plavix] 75 mg PO DAILY 12/05/22 12/17/22 History HYDROcodone/APAP 5-325MG [[place] 1 tab PO BID PRN 12/17/22 12/18/22 History 5-325] Allergies Allergy/AdvReac Type Severity Reaction Status Date / Time No Known Allergies Allergy Verified 12/18/22 10:19 Physical Examination Osteopathic Statement: *. No significant issues noted on an osteopathic structural exam other than those noted in the History and Physical/Consult.
[2022-12-18] MEDS ORDERED: SUCCINYLCHOLINE CHLORIDE 200 MG/10 ML VIAL IV ONE (12:32)
[2022-12-18] MEDS ORDERED: NEOSTIGMINE 1 MG/ML 10 ML VIAL ONE (12:32)
[2022-12-18] MEDS ORDERED: PROPOFOL 10 MG/ML 20 ML VIAL IV ONE (12:32)
[2022-12-18] MEDS ORDERED: ePHEDrine 50 MG/ML 1 ML VIAL ONE (12:32)
[2022-12-18] MEDS ORDERED: MIDAZOLAM 2 MG/2 ML VIAL ONE (12:32)
[2022-12-18] MEDS ORDERED: LIDOCAINE 2% INJ 20 MG/ML (2 ML VIAL) ONE (12:32)
[2022-12-18] MEDS ORDERED: GLYCOPYRROLATE 0.2 MG/ML 2 ML VIAL ONE (12:32)
[2022-12-18] MEDS ORDERED: TRANEXAMIC ACID IN NACL,ISO-OS 1,000 MG/100 ML BAG ONE (12:32)
[2022-12-18] MEDS ORDERED: HYDROmorphone (PF) 1 MG/ML ONE (12:32)
[2022-12-18] MEDS ORDERED: ROCURONIUM 10 MG/ML (5 ML VIAL) IV ONE (12:32)
[2022-12-18] MEDS ORDERED: fentaNYL (PF) 50 MCG/ML 2 ML AMP ONE (12:32)
[2022-12-18] MEDS ORDERED: PHENYLEPHRINE-0.9% NACL SYG 1,000 MCG/10 ML SYRINGE ONE (12:32)
[2022-12-18] MEDS ORDERED: THROMBIN (BOVINE) 5,000 UNIT VIAL TOPICAL ONE (12:37)
[2022-12-18] MEDS ORDERED: BUPIVACAIN-EPI 0.25%-1:200,000 30 ML VIAL SQ ONE (12:37)
[2022-12-18] MEDS ORDERED: GELATIN SPONGE,ABSORB (LARGE) 1 EACH SPONGE TOPICAL ONE (12:37)
[2022-12-18] MEDS ORDERED: LACTATED RINGERS 1,000 ML IV ONE ×2 (12:37→12:45)
[2022-12-18] MEDS ORDERED: GENTAMICIN 80 MG in SODIUM CHLORIDE 0.9% IRRIGATIO 3,000 ML IRRIGATION ONE (13:20)
[2022-12-18] MEDS ORDERED: ceFAZolin 3,000 MG in SODIUM CHLORIDE 0.9% IRRIGATIO 3,000 ML IRRIGATION ONE (13:20)
--- NOTE | 2022-12-18 14:48 | XR ---
Fluoroscopy INDICATION: Pain FINDINGS: Fluoroscopy time: 8 seconds. DAP: 2.7797 mGycm^2 Images obtained: 7. IMPRESSIONS: 1. Documentation of fluoroscopy.
[2022-12-18] MEDS ORDERED: bisacodyL 10 MG SUPP RECTAL PRN (15:03)
[2022-12-18] MEDS ORDERED: HYDROmorphone 0.5 MG/0.5 ML SYRINGE IVP PRN (15:03)
[2022-12-18] MEDS ORDERED: CYCLOBENZAPRINE 5 MG TAB PO PRN (15:03)
[2022-12-18] MEDS ORDERED: MAGNESIUM HYDROXIDE 2,400 MG/10 ML CUP PO PRN (15:03)
[2022-12-18 15:20] LABS: Glucose,Whole Blood 171 mg/dL (70-110)
--- NOTE | 2022-12-18 15:22 | P.PN ---
Progress Note - Text Progress Note Date: 12/18/22 Patient seen and examined in PACU. Patient is awake and able to answer questions. He states his pain is currently managed. Patient is able to move bilateral lower extremities and follow commands. Patient may be moved to medical floor when medically stable and cleared by anesthesia and PACU staff.
--- NOTE | 2022-12-18 15:23 | FL ---
Fluoroscopy INDICATION: Pain FINDINGS: Fluoroscopy time: 8 seconds. DAP: 2.7797 mGycm^2 Images obtained: 0. IMPRESSIONS: 1. Documentation of fluoroscopy.
[2022-12-18] MEDS: SODIUM CHLORIDE 0.9% 1,000 ML IV SCH (16:39)
[2022-12-18] MEDS: methocarbamoL 750 MG TAB PO SCH ×2 (17:31→22:56)
[2022-12-18] MEDS: GABAPENTIN 300 MG CAP PO SCH ×2 (17:31→22:55)
[2022-12-18] MEDS: HYDROmorphone 1 MG/ML 1 ML SYRINGE IVP PRN (19:45)
[2022-12-18] MEDS: IPRATROPIUM-ALBUTEROL 3 ML NEB INHALATION SCH (20:51)
--- NOTE | 2022-12-18 21:52 | CONS ---
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 He has had liver pain for 8 months. He is status post surgery today per Dr. Hooker. He was status post conservative measures, surgical intervention L2-S1 decompressive laminectomy. He has chronic weakness and fatigue, has diastolic heart failure. He has COPD, end-stage. He has metastatic cancer, but he is unable to walk due to his back and his leg weakness for which he underwent surgery. He takes gabapentin for chronic nerve pain down his legs, Robaxin for muscle relaxers, Motrin, anti-inflammatory. He is unable to ambulate due to significant pain down his legs. CT myelogram was reviewed prior to surgery. Medicines have been reordered for blood pressure, hypertension, COPD, etc. HOME MEDICATIONS: Reviewed. Prognosis is guarded. HOME MEDICATIONS: GENERAL: He is alert and oriented. No acute distress. HEENT: Normocephalic, atraumatic. LUNGS: Decreased breath sounds x4. HEART: S1, S2. EXTREMITIES: Skin warm and dry without acute lesions, discolorations, status post lumbar surgery. Has lumbar spondylosis multilevel vacuum disc phenomenon, mild bilateral lower extremity radiculopathy with lumbar bilateral lower extremity weakness, L5-S1 stenosis, neurogenic claudication. He failed physical therapy, failed injections. He will come to the hospital for repair of his spine for L2-S1 decompressive laminectomy. Home medicines have been restarted including breathing treatments, his home medications, etc. Pain control per surgery. PROGNOSIS: Guarded. Outpatient treatment once he starts walking better. MMODL / IJN: [id number] /
[2022-12-18] MEDS ORDERED: GABAPENTIN 300 MG CAP PO SCH (22:00)
[2022-12-18] MEDS: glipiZIDE 10 MG TAB PO SCH (22:56)
[2022-12-18] MEDS: APIXABAN 5 MG TAB PO SCH (22:56)
[2022-12-18] MEDS: atenoloL 50 MG TAB PO SCH (22:56)
[2022-12-18] MEDS: HYDROcodone/APAP 10-325MG 1 EACH TAB PO PRN (23:09)
[2022-12-18 23:41] LABS: Glucose,Whole Blood 257 mg/dL (70-110)
[2022-12-19] MEDS: HYDROcodone/APAP 10-325MG 1 EACH TAB PO PRN ×3 (03:48→21:10)
[2022-12-19 06:33] LABS: Glucose,Whole Blood 191 mg/dL (70-110)
[2022-12-19 07:40] LABS: Basophils # (A) 0.1 k/uL (0-0.2); Basophils % (A) 0 %; Eosinophils % (A) 0 %; HCT 40.9 % (39.0-53.0); HGB 13.3 gm/dL (13.0-17.5); Lymphocytes # (A) 1.6 k/uL (1.0-4.8); Lymphocytes % (A) 14 %; MCH 29.8 pg (25.0-35.0); MCHC 32.4 g/dL (31.0-37.0); MCV 91.7 fL (80.0-100.0); Mean Platelet Volume 10.5; Monocytes # (A) 0.9 k/uL (0-1.0); Monocytes % (A) 8 %; Neutrophils # (A) 8.7 k/uL (1.3-7.7); Neutrophils % (A) 75 %; Platelet Count 247 k/uL (150-450); RBC 4.46 m/uL (4.30-5.90); RDW 14.8 % (11.5-15.5); WBC 11.5 k/uL (3.8-10.6)
[2022-12-19 07:42] LABS: INR 1.3 (<1.2)
[2022-12-19 07:56] LABS: African American GFR (CKD) >90 (>60 ml/min/1.73 sqM); Anion Gap 9 mmol/L; Blood Urea Nitrogen 24 mg/dL (9-20); Calcium 9.1 mg/dL (8.4-10.2); Carbon Dioxide 24 mmol/L (22-30); Chloride 103 mmol/L (98-107); Glucose 154 mg/dL (74-99); Non-African American GFR(CKD) >90 (>60 ml/min/1.73 sqM); Potassium 4.6 mmol/L (3.5-5.1); Sodium 136 mmol/L (137-145)
[2022-12-19] MEDS: IPRATROPIUM-ALBUTEROL 3 ML NEB INHALATION SCH ×4 (08:10→20:54)
--- NOTE | 2022-12-19 09:12 | P.PN ---
Subjective Progress Note Date: 12/19/22 Principal diagnosis: 1. Lumbar spondylosis 2. Multilevel vacuum disc phenomenon 3. Bilateral lower extremity radiculopathy 4. Bilateral lower extremity weakness 5. L3-S1 mild foraminal stenosis 6. Neurogenic claudication Patient seen and examined at bedside. Patient was sitting at edge of bed, tolerating activity well. Patient had Turcios catheter removed approximately at midnight and has yet to void on his own. Patient states he is very upset because there is constant activity in his room and he is unable to concentrate to urinate. Informed patient that we will give 1 hour (until 8am) for him to attempt to void on his own before having to straight cath. Flomax will be ordered. Patient reports that his pain is managed on current regimen. He states he has not been ambulatory in over a year. Patient was able to sit himself at the edge of the bed. He states that the burning sensation into his bilateral lower extremities in the weakness has improved since the procedure. The patient is able to perform back exercises. PT and OT consult has been placed. Encouraged patient to work with physical therapy today. Patient has been afebrile, denies nausea/vomiting, or chest pain. Objective - Vital Signs Vital signs: Vital Signs Temp 97.7 F 12/19/22 02:00 Pulse 74 12/19/22 02:00 Resp 15 12/18/22 20:50 BP 121/69 12/19/22 02:00 Pulse Ox 96 12/19/22 02:00 FiO2 Intake & Output 12/18/22 12/19/22 12/19/22 18:59 06:59 18:59 Intake Total 5201 50 Output Total 550 1040 Balance 4651 -990 Weight 81.647 kg Intake: IV 5201 Intake, IV Titration 50 Amount ceFAZolin 2 gm In Sodium 50 Chloride 0.9% 50 ml @ 100 mls/hr IVPB Q8H [facility] Rx#: [id number] Output: Urine 250 1040 Estimated Blood Loss 300 Other: Voiding Method Indwelling Catheter - Exam Physical Examination General: The patient is awake and alert, in no acute distress Skin: Skin is warm and dry with no obvious rashes or lesions. Surgical incision to the lumbar region, dressing is clean dry and intact. Eye: Pupils are equal, round and reactive to light, extra-ocular movements are intact; there is normal conjunctiva bilaterally. Neck: The neck is supple, there is no tenderness and ROM intact. Cardiovascular: There is a regular rate and rhythm. No murmur, rub or gallop is appreciated. Respiratory: Lungs are clear to auscultation, respirations are non-labored, breath sounds are equal. Gastrointestinal: Soft, non-distended, non-tender abdomen. Back: There is no tenderness to palpation in the midline, paralumbar, parathoracic or buttocks region. There is no obvious deformity . Musculoskeletal: ROM limited secondary to pain and stiffness from surgical procedure. Muscle strength in all major muscle groups of bilateral upper extremities 4+/5, bilateral lower extremities 3+/5. Neurological: CN 2-12 intact. There are no obvious motor or sensory deficits. Movement and coordination equal and intact. Sensory exam to light touch intact C5-T1 and intact from L2-S1. Reflexes 2/4 in bilateral upper and lower extremities. Negative Hoffmans, babinski, and clonus signs. Psychiatric: Cooperative, appropriate mood & affect, normal judgment. - Labs CBC & Chem 7: 12/19/22 05:43 12/19/22 05:43 Labs: Abnormal Lab Results - Last 24 Hours (Table) 12/18/22 12/18/22 12/18/22 Range/Units 10:51 15:16 23:38 WBC (3.8-10.6) k/uL Neutrophils # (1.3-7.7) k/uL PT (9.0-12.0) sec INR (<1.2) POC Glucose (mg/dL) 152 H 171 H 257 H (70-110) mg/dL 12/19/22 12/19/22 12/19/22 Range/Units 05:43 05:43 06:31 WBC 11.5 H (3.8-10.6) k/uL Neutrophils # 8.7 H (1.3-7.7) k/uL PT 13.0 H (9.0-12.0) sec INR 1.3 H (<1.2) POC Glucose (mg/dL) 191 H (70-110) mg/dL Assessment and Plan Assessment: Postop day 1: L2S1 laminectomy and decompression Post-op urinary retention 1. Lumbar spondylosis 2. Multilevel vacuum disc phenomenon 3. Bilateral lower extremity radiculopathy 4. Bilateral lower extremity weakness 5. L3-S1 mild foraminal stenosis 6. Neurogenic claudication Plan: -Appreciate sales consultant residential manager and team management. -Continue to bladder scan as needed and straight cath per protocol. Flomax has been ordered. -Activity: Ambulate QID, OOB all meals, up and about, limit lifting bending tw isting to less than 5 lbs. Use walker or cane if needed for stability. -Daily PT/OT, increase ambulation strength and balance. -Brace when up and about, not needed in bed or chair -Pain control: Adequate at this time -Meds: reviewed -GI ppx: senna, Miralax -DVT PPX: May restart Plavix in 24 hrs. -Hygiene: Shower today. Maintain dressing clean and dry. Meticulous cleaning after BMs away from the incision site -Encourage IS 10x/hr -Dispo: Anticipate discharge home tomorrow with homecare *I reviewed and discussed this case with my attending Dr. Hooker, whom has reviewed this chart and films and is in agreement with assessment and plan of care as outlined above. I have personally seen and examined the patient, performed the documentation and the assessment and plan as written. Number of minutes spent on the visit: 20m.
[2022-12-19] MEDS: TAMSULOSIN 0.4 MG CAP.ER.24H PO SCH (09:38)
[2022-12-19] MEDS: atenoloL 50 MG TAB PO SCH ×2 (09:40→21:04)
[2022-12-19] MEDS: POTASSIUM CHLORIDE ER 20 MEQ TAB.ER PO SCH (09:40)
[2022-12-19] MEDS: MONTELUKAST 10 MG TAB PO SCH (09:40)
[2022-12-19] MEDS: APIXABAN 5 MG TAB PO SCH ×2 (09:40→21:04)
[2022-12-19] MEDS: glipiZIDE 10 MG TAB PO SCH ×2 (09:40→21:04)
[2022-12-19] MEDS: ASPIRIN 81 MG PO SCH (09:40)
[2022-12-19] MEDS: CLOPIDOGREL 75 MG TAB PO SCH (09:40)
[2022-12-19] MEDS: GABAPENTIN 300 MG CAP PO SCH ×3 (09:41→21:04)
[2022-12-19] MEDS: FUROSEMIDE 20 MG TAB PO SCH (09:41)
[2022-12-19] MEDS: SENNOSIDES-DOCUSATE SODIUM 1 EACH TAB PO SCH (09:41)
[2022-12-19] MEDS: methocarbamoL 750 MG TAB PO SCH ×3 (09:44→21:04)
[2022-12-19] MEDS: ATORVASTATIN 40 MG TAB PO SCH (09:44)
[2022-12-19] MEDS: SODIUM CHLORIDE 0.9% 1,000 ML IV SCH (11:16)
--- NOTE | 2022-12-19 11:26 | P.CONS ---
History of Present Illness - Reason for Consult Consult date: 12/19/22 wound care - History of Present Illness This is a 67-year-old gentleman with multiple ulcerations to the bilateral feet. Patient follows in the [facility] wound care center with Dr. Forde. He has been utilizing collagen to the ulcerations. Patient has a ulceration to the right dorsal foot measuring approximately 2 x 1.6 x 0.2 cm with significant amounts of Slough and nonviable tissue present with minimal to no granulation seen the wound edges are attached to the wound base there is no tunneling or undermining, patient has an ulceration to the great toe and second toe that are Limited to skin breakdown with Slough and minimal granulation. Patient has ulcerations to the left great toe second toe and fourth toe with fat layer exposure significant amount of slough and nonviable tissue present and minimal g ranulation. Review Of Systems: Constitutional: No fever, no chills, no night sweats. No weight change. No weakness, fatigue or lethargy. No daytime sleepiness. Integumentary:reports wounds, no lesions. No rash or pruritus. No unusual bruising. No change in hair or nails. Physical exam: General Appearance: Alert, cooperative, no distress, appears stated age. Skin: See HPI all other Skin color, texture, tugor normal, no rashes or lesions. Neurologic: Alert oriented x3 Assessment: 1. Nonhealing ulceration with fat layer exposure right foot 2. Nonhealing ulceration other part of right foot Limited to skin breakdown 3. Nonhealing ulceration other part of left foot with fat layer exposure 4. Diabetes with skin ulceration Plan: 1. Right dorsal foot, right great digit, right second digit, left great digit, second digit left, left fourth digit:Apply honey gel to all open ulcerations to bilateral feet, dry gauze roll gauze and secure with paper tape. Change Thursday. 2. Continue following in the wound care center at [facility]. Thank you for the consultation any questions with contact the wound care center DNP note has been reviewed and discussed with Dr. Ann and the impression and plan of care has been directed as dictated. Past Medical History Past Medical History: COPD, CVA/TIA, Diabetes Mellitus, Hypertension, Musculoskeletal Disorder Additional Past Medical History / Comment(s): Hx. "mini stroke after 2nd covid shot", states has been on blood thinners since 2020, hx. fall last 2021 that injured back, frequent falls History of Any Multi-Drug Resistant Organisms: None Reported Past Surgical History: Hernia Repair Additional Past Surgical History / Comment(s): Excision L Facial lipoma, repair hiatal hernia Past Anesthesia/Blood Transfusion Reactions: No Reported Reaction Past Psychological History: No Psychological Hx Reported Additional Psychological History / Comment(s): Pt is currently staying with his exwife and daughter, it is not a very good situation. Pt states he lives in [place] but is stuck here right now because of everything going on medically Smoking Status: Current every day smoker Past Alcohol Use History: None Reported Additional Past Alcohol Use History / Comment(s): Pt states he use to drink about 20 years ago, quit smoking 09/2022, was 2ppd since teens Past Drug Use History: None Reported - Past Family History Mother Family Medical History: Cancer Additional Family Medical History / Comment(s): Mother of lung cancer. Father History Unknown: Yes Medications and Allergies Home Medications Medication Instructions Recorded Confirmed Type Montelukast [Singulair] 10 mg PO DAILY 09/30/19 12/18/22 History Repaglinide [Prandin] 1 mg PO TID 09/30/19 12/18/22 History Aspirin [Adult Low Dose Aspirin EC] 81 mg PO DAILY 04/15/22 12/17/22 History Atorvastatin [Lipitor] 40 mg PO DAILY 04/15/22 12/18/22 History glyBURIDE [Diabeta] 5 mg PO BID 04/15/22 12/18/22 History methocarbamoL [Robaxin] 500 mg PO BID PRN 30 Days #60 tab 04/30/22 12/18/22 Rx rOPINIRole HCL [Requip] 1 mg PO TID 06/02/22 12/18/22 History Gabapentin 600 mg PO TID 06/17/22 12/18/22 History Potassium Chloride [Klor-Con M20] 20 meq PO DAILY 06/17/22 12/18/22 History atenoloL [Tenormin] 50 mg PO BID 06/17/22 12/18/22 History Furosemide [Lasix] 20 mg PO DAILY 09/29/22 12/18/22 History Acetaminophen Tab [Tylenol Tab] 500 mg PO Q6H PRN #30 tablet 10/04/22 12/18/22 Rx Apixaban [Eliquis] 5 mg PO BID 12/05/22 12/17/22 History Clopidogrel [Plavix] 75 mg PO DAILY 12/05/22 12/17/22 History HYDROcodone/APAP 5-325MG [[place] 1 tab PO BID PRN 12/17/22 12/18/22 History 5-325] Allergies Allergy/AdvReac Type Severity Reaction Status Date / Time No Known Allergies Allergy Verified 12/18/22 10:19 Physical Exam Vitals: Vital Signs Temp Pulse Resp BP Pulse Ox 12/19/22 08:49 97.3 F L 69 18 118/69 95 12/19/22 02:00 97.7 F 74 121/69 96 12/18/22 20:50 86 15 12/18/22 20:00 97.6 F 86 15 125/75 95 12/18/22 17:02 81 131/67 93 L 12/18/22 16:31 77 157/80 97 12/18/22 16:01 97.0 F L 73 17 134/74 96 12/18/22 15:44 76 16 141/72 95 12/18/22 15:34 75 16 150/95 93 L 12/18/22 15:18 75 14 144/75 94 L 12/18/22 15:03 97.3 F L 81 12 162/80 97 Intake and Output 12/18/22 12/19/22 12/19/22 22:59 06:59 14:59 Intake Total 3049 50 Output Total 1040 Balance 3049 -990 Intake: IV 3049 Intake, IV Titration 50 Amount ceFAZolin 2 gm In Sodium 50 Chloride 0.9% 50 ml @ 100 mls/hr IVPB Q8H [facility] Rx#: [id number] Output: Urine 1040 Other: Voiding Method Indwelling Catheter Weight 81.647 kg Results CBC & Chem 7: 12/19/22 05:43 12/19/22 05:43 Labs: Abnormal Lab Results - Last 24 Hours (Table) 12/18/22 12/18/22 12/19/22 Range/Units 15:16 23:38 05:43 WBC (3.8-10.6) k/uL Neutrophils # (1.3-7.7) k/uL PT 13.0 H (9.0-12.0) sec INR 1.3 H (<1.2) Sodium (137-145) mmol/L BUN (9-20) mg/dL Creatinine (0.66-1.25) mg/dL Glucose (74-99) mg/dL POC Glucose (mg/dL) 171 H 257 H (70-110) mg/dL 12/19/22 12/19/22 12/19/22 Range/Units 05:43 05:43 06:31 WBC 11.5 H (3.8-10.6) k/uL Neutrophils # 8.7 H (1.3-7.7) k/uL PT (9.0-12.0) sec INR (<1.2) Sodium 136 L (137-145) mmol/L BUN 24 H (9-20) mg/dL Creatinine 0.60 L (0.66-1.25) mg/dL Glucose 154 H (74-99) mg/dL POC Glucose (mg/dL) 191 H (70-110) mg/dL Assessment and Plan (1) Non-pressure chronic ulcer of other part of right foot limited to breakdown of skin Current Visit: Yes Status: Acute Code(s): L97.511 - NON-PRS CHRONIC ULCER OTH PRT R FOOT LIMITED TO BRKDWN SKIN SNOMED Code(s): 49054608371405696 (2) Non-pressure chronic ulcer of other part of left foot with fat layer exposed Current Visit: Yes Status: Acute Code(s): L97.522 - NON-PRS CHRONIC ULCER OTH PRT LEFT FOOT W FAT LAYER EXPOSED SNOMED Code(s): 94953875981909705 (3) Non-pressure chronic ulcer of other part of right foot with fat layer expo sed Current Visit: No Status: Acute Code(s): L97.512 - NON-PRS CHRONIC ULCER OTH PRT RIGHT FOOT W FAT LAYER EXPOSED SNOMED Code(s): 16239327112080551 (4) Type 2 diabetes mellitus with foot ulcer Current Visit: No Status: Acute Code(s): E11.621 - TYPE 2 DIABETES MELLITUS WITH FOOT ULCER; L97.509 - NON-PRESSURE CHRONIC ULCER OTH PRT UNSP FOOT W UNSP SEVERITY SNOMED Code(s): 339000909
[2022-12-19 11:43] LABS: African American GFR (CKD) 107.3 (60.0-200.0); Albumin 3.6 g/dL (3.8-4.9); Albumin/Globulin Ratio 1.24 (1.60-3.17); Anion Gap 11.6 mmol/L (10.00-18.00); BUN/Creat Ratio 30.26 Ratio (12.00-20.00); Blood Urea Nitrogen 23.3 mg/dL (9.0-27.0); Calcium 9.3 mg/dL (8.7-10.3); Carbon Dioxide 23.8 mmol/L (20.0-27.5); Globulin 2.9 g/dL (1.6-3.3); Non-African American GFR(CKD) 92.6 (60.0-200.0); Potassium 4.8 mmol/L (3.5-5.5); Total Bilirubin 0.2 mg/dL (0.30-1.20); Total Protein 6.4 g/dL (6.2-8.2)
[2022-12-19 11:44] LABS: Glucose,Whole Blood 165 mg/dL (70-110)
--- NOTE | 2022-12-19 13:37 | P.PN ---
Subjective Progress Note Date: 12/19/22 patient status post L2-W3Neblepzwlwscv laminectomy 12/19. Patient seen and examined. States back pain has improved. Still having problems with urinary retention, patient not very keen to undergo straight cath. Vital signs stable REVIEW OF SYSTEMS: CONSTITUTIONAL: No fever, no malaise,. CARDIOVASCULAR: No chest pain, no palpitations, no syncope. PULMONARY: No shortness of breath, no cough, GASTROINTESTINAL: No diarrhea, no nausea, no vomiting, no abdominal pain. NEUROLOGICAL: No headaches, no weakness, PHYSICAL EXAMINATION: GENERAL: The patient is alert and oriented x3, not in any acute distress. Well developed, well nourished. HEENT: Pupils are round and equally reacting to light. EOMI. No scleral icterus. No conjunctival pallor. Normocephalic, atraumatic. No pharyngeal erythema. No thyromegaly. CARDIOVASCULAR: S1 and S2 present. No murmurs, rubs, or gallops. PULMONARY: Chest is clear to auscultation, no wheezing or crackles. ABDOMEN: Soft, nontender, nondistended, normoactive bowel sounds. No palpable organomegaly. MUSCULOSKELETAL: No joint swelling or deformity. EXTREMITIES: Right foot bandage in place NEUROLOGICAL: Gross neurological examination did not reveal any focal deficits. SKIN: No rashes. Lumbar regular surgical incision seen Assessment and plan Lumbar spondylosis Bilateral lower extremity radiculopathy Bilateral lower extremity weakness L3-S1 mild foraminal stenosis Neurogenic claudication Status post L2-S1 decompressive laminectomy COPD Hypertension Chronic diastolic heart failure Plan; Monitor vital signs Monitor CBC Monitor CMP Continue wound care Continue pain management per surgery Continue aggressive bowel regimen Continue home meds Continue bladder management per protocol DVT prophylaxis: Objective - Vital Signs Vital signs: Vital Signs Temp 97.3 F L 12/19/22 08:49 Pulse 69 12/19/22 08:49 Resp 18 12/19/22 08:49 BP 118/69 12/19/22 08:49 Pulse Ox 95 12/19/22 08:49 FiO2 Intake & Output 12/18/22 12/19/22 12/19/22 18:59 06:59 18:59 Intake Total 5201 50 Output Total 550 1040 Balance 4651 -990 Weight 81.647 kg Intake: IV 5201 Intake, IV Titration 50 Amount ceFAZolin 2 gm In Sodium 50 Chloride 0.9% 50 ml @ 100 mls/hr IVPB [facility] Rx#: [id number] Output: Urine 250 1040 Estimated Blood Loss 300 Other: Voiding Method Indwelling Catheter - Labs CBC & Chem 7: 12/19/22 05:43 12/19/22 05:43 Labs: Abnormal Lab Results - Last 24 Hours (Table) 12/18/22 12/18/22 12/18/22 Range/Units 10:51 15:16 23:38 WBC (3.8-10.6) k/uL Neutrophils # (1.3-7.7) k/uL PT (9.0-12.0) sec INR (<1.2) Sodium (137-145) mmol/L BUN (9-20) mg/dL Creatinine (0.66-1.25) mg/dL Glucose (74-99) mg/dL POC Glucose (mg/dL) 152 H 171 H 257 H (70-110) mg/dL 12/19/22 12/19/22 12/19/22 Range/Units 05:43 05:43 05:43 WBC 11.5 H (3.8-10.6) k/uL Neutrophils # 8.7 H (1.3-7.7) k/uL PT 13.0 H (9.0-12.0) sec INR 1.3 H (<1.2) Sodium 136 L (137-145) mmol/L BUN 24 H (9-20) mg/dL Creatinine 0.60 L (0.66-1.25) mg/dL Glucose 154 H (74-99) mg/dL POC Glucose (mg/dL) (70-110) mg/dL 12/19/22 Range/Units 06:31 WBC (3.8-10.6) k/uL Neutrophils # (1.3-7.7) k/uL PT (9.0-12.0) sec INR (<1.2) Sodium (137-145) mmol/L BUN (9-20) mg/dL Creatinine (0.66-1.25) mg/dL Glucose (74-99) mg/dL POC Glucose (mg/dL) 191 H (70-110) mg/dL
[2022-12-19 17:02] LABS: Glucose,Whole Blood 184 mg/dL (70-110)
[2022-12-19 20:25] LABS: Glucose,Whole Blood 213 mg/dL (70-110)
[2022-12-20] MEDS: HYDROmorphone 1 MG/ML 1 ML SYRINGE IVP PRN (01:56)
[2022-12-20] MEDS: SODIUM CHLORIDE 0.9% 1,000 ML IV SCH (04:54)
[2022-12-20 06:35] LABS: Glucose,Whole Blood 191 mg/dL (70-110)
[2022-12-20] MEDS: IPRATROPIUM-ALBUTEROL 3 ML NEB INHALATION SCH ×4 (07:40→22:04)
[2022-12-20] MEDS: GABAPENTIN 300 MG CAP PO SCH ×3 (09:32→20:25)
[2022-12-20] MEDS: FUROSEMIDE 20 MG TAB PO SCH (09:33)
[2022-12-20] MEDS: methocarbamoL 750 MG TAB PO SCH ×3 (09:33→20:26)
[2022-12-20] MEDS: TAMSULOSIN 0.4 MG CAP.ER.24H PO SCH (09:33)
[2022-12-20] MEDS: ASPIRIN 81 MG PO SCH (09:33)
[2022-12-20] MEDS: CLOPIDOGREL 75 MG TAB PO SCH (09:33)
[2022-12-20] MEDS: ATORVASTATIN 40 MG TAB PO SCH (09:33)
[2022-12-20] MEDS: glipiZIDE 10 MG TAB PO SCH ×2 (09:33→20:26)
[2022-12-20] MEDS: APIXABAN 5 MG TAB PO SCH ×2 (09:33→20:25)
[2022-12-20] MEDS: MONTELUKAST 10 MG TAB PO SCH (09:33)
[2022-12-20] MEDS: SENNOSIDES-DOCUSATE SODIUM 1 EACH TAB PO SCH (09:33)
[2022-12-20] MEDS: POTASSIUM CHLORIDE ER 20 MEQ TAB.ER PO SCH (09:33)
[2022-12-20] MEDS: HYDROcodone/APAP 10-325MG 1 EACH TAB PO PRN ×2 (09:37→17:27)
[2022-12-20] MEDS: atenoloL 50 MG TAB PO SCH ×2 (09:40→20:26)
[2022-12-20 11:32] LABS: Glucose,Whole Blood 162 mg/dL (70-110)
--- NOTE | 2022-12-20 11:51 | P.PN ---
Subjective Progress Note Date: 12/20/22 Principal diagnosis: Status post L2-S1 laminectomy and decompression Patient was evaluated at bedside today, he is resting in his hospital bed. He states that the pain is well-controlled currently in the low back. He states that he feels that he is moving the leg a little bit better today. He has not been up with physical therapy at this time. Urinary retention seems to have improved significantly with the use of Flomax. He currently denies any headaches, lightheadedness, chest pain or shortness of breath Objective - Vital Signs Vital signs: Vital Signs Temp 98.9 F 12/20/22 07:19 Pulse 80 12/20/22 09:27 Resp 18 12/20/22 07:19 BP 104/63 12/20/22 09:27 Pulse Ox 92 L 12/20/22 07:19 FiO2 Intake & Output 12/19/22 12/20/22 12/20/22 18:59 06:59 18:59 Output Total 545 450 Balance -545 -450 Output: Urine 545 450 Other: Voiding Method Urinal Urinal # Voids 1 - Exam Gen: AOx3, NAD VSS stable at this time Integument: Postoperative dressing is in good position and condition, no active drainage visualized Palpation: Mild tenderness noted to the midline and paraspinal region of the lower lumbar spine ROM: Full range of motion in all major muscle groups of the bilateral upper extremities with no focal deficits Range of motion limited in the bilateral lower extremities due to pain and stiffness from surgery, no focal deficits appreciated Sensory Exam: Senory exam to light touch is intact C5-T1 Senosry exam to light touch is intact L2-S1 Motor: 4+/5 strength appreciated in the bilateral upper extremities with shoulder abduction, shoulder elevation, elbow extension, elbow flexion, wrist extension, wrist flexion, graphite grinder 3+/5 strength appreciated in the bilateral lower extremities with hip flexion, knee extension, knee flexion, plantar flexion, dorsiflexion, EHL, FHL Reflexes: Negative Dick's, negative clonus, negative Babinski bilaterally - Labs CBC & Chem 7: 12/19/22 05:43 12/19/22 05:43 Labs: Abnormal Lab Results - Last 24 Hours (Table) 12/19/22 12/19/22 12/20/22 Range/Units 17:01 20:24 06:33 POC Glucose (mg/dL) 184 H 213 H 191 H (70-110) mg/dL 12/20/22 Range/Units 11:31 POC Glucose (mg/dL) 162 H (70-110) mg/dL Assessment and Plan Assessment: Postoperative day #2 status post L2-S1 laminectomy decompression Postoperative urinary retention Plan: Pain control, continue use of current medications DVT prophylaxis, continue use of CARI hose and compression stockings, patient's Plavix and Eliquis has been restarted Continue to monitor dressing, we'll likely change prior to discharge PT/OT Weight-bear as tolerated with walker. Advised patient he needs to be out of bed for all meals, he needs to be utilizing the chair and ambulating as much as he can with the help of the need Continue Flomax at this time for the urinary retention Medical recommendations appreciated Discharge planning: The long discussion with the patient today regarding possible options for discharge. Recommending patient for subacute rehab, likely discharge in the next 48 hours
[2022-12-20 13:23] LABS: HGB 10.9 g/dL (13.0-17.0); MCH 29.8 pg (27.0-32.0); MCHC 32.1 g/dL (32.0-37.0); MCV 92.9 fL (80.0-97.0); Mean Platelet Volume 11.4 fL (9.5-12.2); NRBC Per 100 WBC 0 /100 WBCS (0.0-0.0); Platelet Count 156 X 10*3/uL (140-440); RBC 3.66 X 10*6/uL (4.40-5.60); RDW 15.5 % (11.5-14.5); WBC 10.71 X 10*3/uL (4.50-10.00)
[2022-12-20 13:35] LABS: African American GFR (CKD) 105.6 (60.0-200.0); Albumin 3.1 g/dL (3.8-4.9); Albumin/Globulin Ratio 1.29 (1.60-3.17); Anion Gap 9.7 mmol/L (10.00-18.00); BUN/Creat Ratio 29.38 Ratio (12.00-20.00); Blood Urea Nitrogen 23.5 mg/dL (9.0-27.0); Calcium 8.5 mg/dL (8.7-10.3); Carbon Dioxide 23.3 mmol/L (20.0-27.5); Globulin 2.4 g/dL (1.6-3.3); Non-African American GFR(CKD) 91.1 (60.0-200.0); Potassium 4.3 mmol/L (3.5-5.5); Total Bilirubin 0.3 mg/dL (0.30-1.20); Total Protein 5.5 g/dL (6.2-8.2)
[2022-12-20 16:11] LABS: Basophils # (A) 0.05 X 10*3/uL (0.00-0.10); Basophils % (A) 0.5 %; Eosinophils # (A) 0.01 X 10*3/uL (0.04-0.35); Eosinophils % (A) 0.1 %; Immature Grans, Automated 0.4 %; Lymphocytes # (A) 1.02 X 10*3/uL (0.90-5.00); Lymphocytes % (A) 9.5 %; Monocytes # (A) 1.66 X 10*3/uL (0.20-1.00); Monocytes % (A) 15.5 %; Neutrophils # (A) 7.93 X 10*3/uL (1.80-7.70)
[2022-12-20 16:12] LABS: RBC Morphology NORMAL
[2022-12-20 16:24] LABS: Glucose,Whole Blood 116 mg/dL (70-110)
--- NOTE | 2022-12-20 21:33 | PN ---
PROGRESS NOTE SUBJECTIVE: This is a 67-year-old white male status post surgery of the lumbar spine. I can feel less numbness and tingling down the legs. He is about 2 days postop. Will get PT OT involved and possibly need to go to rehab center. Home medications for systolic CHF and COPD were ordered. He is moving his legs a bit better than yesterday. Urinary retention better with Flomax. Chest pains are improved. OBJECTIVE: VITAL SIGNS: He is 92 on room air. Blood pressure 104/53, respiratory rate is 14 to 16, pulse 70s to 80s, temp 99. CARDIOVASCULAR: S1-S2. LUNGS: Decreased breath sounds x4. PSYCH: Fair mood and affect. NEUROLOGIC: 3 to 4/5 pain in his lower legs and range of motion slightly improved with movement, use of walker, wait as tolerated. Flomax for BPH, subacute rehab in the next 24 to 48 hours. MMODL / IJN: [id number] /
[2022-12-20 22:03] LABS: Glucose,Whole Blood 125 mg/dL (70-110)
[2022-12-21] MEDS: HYDROmorphone 1 MG/ML 1 ML SYRINGE IVP PRN ×3 (00:21→22:38)
[2022-12-21] MEDS: HYDROcodone/APAP 10-325MG 1 EACH TAB PO PRN ×3 (03:17→12:55)
[2022-12-21] MEDS: SODIUM CHLORIDE 0.9% 1,000 ML IV SCH ×2 (03:18→19:56)
[2022-12-21 05:55] LABS: Glucose,Whole Blood 117 mg/dL (70-110)
[2022-12-21] MEDS: APIXABAN 5 MG TAB PO SCH ×2 (07:31→19:56)
[2022-12-21] MEDS: FUROSEMIDE 20 MG TAB PO SCH (07:31)
[2022-12-21] MEDS: POTASSIUM CHLORIDE ER 20 MEQ TAB.ER PO SCH (07:31)
[2022-12-21] MEDS: SENNOSIDES-DOCUSATE SODIUM 1 EACH TAB PO SCH (07:31)
[2022-12-21] MEDS: glipiZIDE 10 MG TAB PO SCH ×2 (07:31→19:55)
[2022-12-21] MEDS: atenoloL 50 MG TAB PO SCH ×2 (07:31→19:55)
[2022-12-21] MEDS: ASPIRIN 81 MG PO SCH (07:31)
[2022-12-21] MEDS: MONTELUKAST 10 MG TAB PO SCH (07:31)
[2022-12-21] MEDS: TAMSULOSIN 0.4 MG CAP.ER.24H PO SCH (07:31)
[2022-12-21] MEDS: GABAPENTIN 300 MG CAP PO SCH ×3 (07:31→19:55)
[2022-12-21] MEDS: ATORVASTATIN 40 MG TAB PO SCH (07:31)
[2022-12-21] MEDS: methocarbamoL 750 MG TAB PO SCH ×3 (07:31→19:55)
[2022-12-21] MEDS: CLOPIDOGREL 75 MG TAB PO SCH (07:32)
[2022-12-21 08:44] LABS: Basophils % (A) 0 %; Eosinophils % (A) 0 %; HCT 32.9 % (39.0-53.0); HGB 10.9 gm/dL (13.0-17.5); Lymphocytes # (A) 0.9 k/uL (1.0-4.8); Lymphocytes % (A) 11 %; MCH 30.2 pg (25.0-35.0); MCHC 33.2 g/dL (31.0-37.0); MCV 91.2 fL (80.0-100.0); Mean Platelet Volume 10.2; Monocytes # (A) 0.8 k/uL (0-1.0); Monocytes % (A) 10 %; Neutrophils # (A) 6.1 k/uL (1.3-7.7); Neutrophils % (A) 75 %; Platelet Count 171 k/uL (150-450); RBC 3.61 m/uL (4.30-5.90); RDW 14.6 % (11.5-15.5); WBC 8.1 k/uL (3.8-10.6)
[2022-12-21 08:53] LABS: ALT 17 U/L (4-49); AST 21 U/L (17-59); African American GFR (CKD) >90 (>60 ml/min/1.73 sqM); Albumin 2.6 g/dL (3.5-5.0); Alkaline Phosphatase 108 U/L (38-126); Anion Gap 4 mmol/L; Blood Urea Nitrogen 24 mg/dL (9-20); Calcium 8.2 mg/dL (8.4-10.2); Carbon Dioxide 27 mmol/L (22-30); Chloride 105 mmol/L (98-107); Globulin 2.7 g/dL; Glucose 104 mg/dL (74-99); Non-African American GFR(CKD) >90 (>60 ml/min/1.73 sqM); Potassium 4.2 mmol/L (3.5-5.1); Sodium 136 mmol/L (137-145); Total Bilirubin 0.6 mg/dL (0.2-1.3); Total Protein 5.3 g/dL (6.3-8.2)
--- NOTE | 2022-12-21 09:16 | P.PN ---
Subjective Progress Note Date: 12/21/22 Principal diagnosis: Status post L2-S1 laminectomy and decompression Patient was evaluated at bedside today, he was sitting at the edge of his hospital bed. He states that the pain is well-controlled currently in the low back. He states that he feels that he is moving the leg a little bit better today. He currently denies any headaches, lightheadedness, chest pain or shortn ess of breath Objective - Vital Signs Vital signs: Vital Signs Temp 99.0 F 12/21/22 07:25 Pulse 74 12/21/22 07:25 Resp 16 12/21/22 07:25 BP 105/64 12/21/22 07:25 Pulse Ox 92 L 12/21/22 07:25 FiO2 Intake & Output 12/20/22 12/21/22 12/21/22 18:59 06:59 18:59 Intake Total 1080 200 Output Total 800 Balance 280 200 Intake: Oral 1080 200 Output: Urine 800 Other: Voiding Method Urinal # Voids 1 - Exam Gen: AOx3, NAD VSS stable at this time Integument: Dressing was changed at bedside, nidia are in good position and condition, no active drainage Palpation: Mild tenderness noted to the midline and paraspinal region of the lower lumbar spine ROM: Full range of motion in all major muscle groups of the bilateral upper extremities with no focal deficits Range of motion limited in the bilateral lower extremities due to pain and stiffness from surgery, no focal deficits appreciated Sensory Exam: Senory exam to light touch is intact C5-T1 Senosry exam to light touch is intact L2-S1 Motor: 4+/5 strength appreciated in the bilateral upper extremities with shoulder abduction, shoulder elevation, elbow extension, elbow flexion, wrist extension, wrist flexion, sponge packer 4-/5 strength appreciated in the bilateral lower extremities with hip flexion, knee extension, knee flexion, plantar flexion, dorsiflexion, EHL, FHL Reflexes: Negative Dick's, negative clonus, negative Babinski bilaterally - Labs CBC & Chem 7: 12/21/22 06:58 12/21/22 06:58 Labs: Abnormal Lab Results - Last 24 Hours (Table) 12/20/22 12/20/22 12/20/22 Range/Units 06:05 06:05 11:31 WBC 10.71 H (4.50-10.00) X 10*3/uL RBC 3.66 L (4.40-5.60) X 10*6/uL Hgb 10.9 L (13.0-17.0) g/dL Hct 34.0 L (39.6-50.0) % RDW 15.5 H (11.5-14.5) % Neutrophils # 7.93 H (1.80-7.70) X 10*3/uL Lymphocytes # (1.0-4.8) k/uL Monocytes # 1.66 H (0.20-1.00) X 10*3/uL Eosinophils # 0.01 L (0.04-0.35) X 10*3/uL Sodium (137-145) mmol/L Anion Gap 9.70 L (10.00-18.00) mmol/L BUN (9-20) mg/dL BUN/Creatinine Ratio 29.38 H (12.00-20.00) Ratio Glucose 181 H (70-110) mg/dL POC Glucose (mg/dL) 162 H (70-110) mg/dL Calcium 8.5 L (8.7-10.3) mg/dL Total Protein 5.5 L (6.2-8.2) g/dL Albumin 3.1 L (3.8-4.9) g/dL Albumin/Globulin Ratio 1.29 L (1.60-3.17) g/dL 12/20/22 12/20/22 12/21/22 Range/Units 16:22 22:01 05:54 WBC (4.50-10.00) X 10*3/uL RBC (4.40-5.60) X 10*6/uL Hgb (13.0-17.0) g/dL Hct (39.6-50.0) % RDW (11.5-14.5) % Neutrophils # (1.80-7.70) X 10*3/uL Lymphocytes # (1.0-4.8) k/uL Monocytes # (0.20-1.00) X 10*3/uL Eosinophils # (0.04-0.35) X 10*3/uL Sodium (137-145) mmol/L Anion Gap (10.00-18.00) mmol/L BUN (9-20) mg/dL BUN/Creatinine Ratio (12.00-20.00) Ratio Glucose (70-110) mg/dL POC Glucose (mg/dL) 116 H 125 H 117 H (70-110) mg/dL Calcium (8.7-10.3) mg/dL Total Protein (6.2-8.2) g/dL Albumin (3.8-4.9) g/dL Albumin/Globulin Ratio (1.60-3.17) g/dL 12/21/22 12/21/22 Range/Units 06:58 06:58 WBC (4.50-10.00) X 10*3/uL RBC 3.61 L (4.40-5.60) X 10*6/uL Hgb 10.9 L (13.0-17.0) g/dL Hct 32.9 L (39.6-50.0) % RDW (11.5-14.5) % Neutrophils # (1.80-7.70) X 10*3/uL Lymphocytes # 0.9 L (1.0-4.8) k/uL Monocytes # (0.20-1.00) X 10*3/uL Eosinophils # (0.04-0.35) X 10*3/uL Sodium 136 L (137-145) mmol/L Anion Gap (10.00-18.00) mmol/L BUN 24 H (9-20) mg/dL BUN/Creatinine Ratio (12.00-20.00) Ratio Glucose 104 H (70-110) mg/dL POC Glucose (mg/dL) (70-110) mg/dL Calcium 8.2 L (8.7-10.3) mg/dL Total Protein 5.3 L (6.2-8.2) g/dL Albumin 2.6 L (3.8-4.9) g/dL Albumin/Globulin Ratio (1.60-3.17) g/dL Assessment and Plan Assessment: Postoperative day #3 status post L2-S1 laminectomy decompression Postoperative urinary retention Plan: Pain control, continue use of current medications DVT prophylaxis, continue use of CARI hose and compression stockings, patient's Plavix and Eliquis has been restarted Optifoam dressing to be placd 12/22/2022 PT/OT Weight-bear as tolerated with walker. Advised patient he needs to be out of bed for all meals, he needs to be utilizing the chair and ambulating as much as he can with the help of the need Continue Flomax at this time for the urinary retention Medical recommendations appreciated Discharge planning: Hopeful discharge to subacute rehab in 24-48 hours
[2022-12-21 11:39] LABS: Glucose,Whole Blood 123 mg/dL (70-110)
[2022-12-21] MEDS: IPRATROPIUM-ALBUTEROL 3 ML NEB INHALATION SCH ×3 (12:37→21:06)
--- NOTE | 2022-12-21 13:06 | PN ---
PROGRESS NOTE SUBJECTIVE: This is a 67-year-old white male. PT OT is improving the patient. He is up ambulating better. He is status post lumbar surgery. OBJECTIVE: VITAL SIGNS: Blood pressure is in the low 100 to 129 over 60s to 70s, O2 is 92 to 94, temp 99, and respiratory rate 16 to 20. CARDIOVASCULAR: S1, S2. HEMATOLOGY: Negative for Homans. ASSESSMENT: Status post lumbar disk disease, acute on chronic anemia secondary to surgery, mild dehydration, possibly give some fluids PT OT rehab placement will be needed. Continue on current treatments including to Tenormin, Lipitor, aspirin, Eliquis, Plavix, Lasix, Neurontin, Glucotrol, pain control, PT, OT, longterm placement, DuoNeb q.i.d. PROGNOSIS: Guarded. Ambulate as tolerated, Flomax for BPH. MMJIML / GRISELN: [id number] /
[2022-12-21 16:39] LABS: Glucose,Whole Blood 116 mg/dL (70-110)
[2022-12-21] MEDS: HYDROcodone/APAP 5-325MG 1 EACH TAB PO PRN (19:55)
[2022-12-22] MEDS: HYDROcodone/APAP 10-325MG 1 EACH TAB PO PRN ×3 (03:32→13:32)
[2022-12-22] MEDS: HYDROmorphone 1 MG/ML 1 ML SYRINGE IVP PRN (04:51)
--- NOTE | 2022-12-22 08:19 | P.PN ---
Subjective Progress Note Date: 12/22/22 Principal diagnosis: 1. Lumbar spondylosis 2. Multilevel vacuum disc phenomenon 3. Bilateral lower extremity radiculopathy 4. Bilateral lower extremity weakness 5. L3-S1 mild foraminal stenosis 6. Neurogenic claudication Patient seen and examined at bedside. Patient was resting comfortably in bed. He states he has low back pain with activity, but this is controlled on current regimen. Patient is able to move bilateral lower extremities with limitation due to pain and weakness. He is looking forward to going to rehab to work towards wa deviantARTing again. Consult placed for Dr. Pinon for possible IPR. Encouraged patient to work with physical therapy today. Patient has been afebrile, denies nausea/vomiting, or chest pain. Objective - Vital Signs Vital signs: Vital Signs Temp 98.9 F 12/22/22 04:15 Pulse 68 12/22/22 04:15 Resp 18 12/22/22 04:15 BP 136/74 12/22/22 04:15 Pulse Ox 94 L 12/22/22 04:15 FiO2 Intake & Output 12/21/22 12/22/22 12/22/22 18:59 06:59 18:59 Intake Total 240 Output Total 400 200 Balance -400 40 Intake: Oral 240 Output: Urine 400 200 Other: Voiding Method Urinal Incontinent # Voids 3 - Exam Physical Examination General: The patient is awake and alert, in no acute distress Skin: Skin is warm and dry with no obvious rashes or lesions. Surgical incision to the lumbar region, dressing is clean dry and intact. Eye: Pupils are equal, round and reactive to light, extra-ocular movements are intact; there is normal conjunctiva bilaterally. Neck: The neck is supple, there is no tenderness and ROM intact. Cardiovascular: There is a regular rate and rhythm. No murmur, rub or gallop is appreciated. Respiratory: Lungs are clear to auscultation, respirations are non-labored, breath sounds are equal. Gastrointestinal: Soft, non-distended, non-tender abdomen. Back: There is no tenderness to palpation in the midline, paralumbar, parathoracic or buttocks region. There is no obvious deformity . Musculoskeletal: ROM limited secondary to pain and stiffness from surgical procedure. Muscle strength in all major muscle groups of bilateral upper extremities 4+/5, bilateral lower extremities 4-/5. Neurological: CN 2-12 intact. There are no obvious motor or sensory deficits. Movement and coordination equal and intact. Sensory exam to light touch intact C5-T1 and intact from L2-S1. Reflexes 2/4 in bilateral upper and lower extremities. Negative Hoffmans, babinski, and clonus signs. Psychiatric: Cooperative, appropriate mood & affect, normal judgment. - Labs CBC & Chem 7: 12/21/22 06:58 12/21/22 06:58 Labs: Abnormal Lab Results - Last 24 Hours (Table) 12/21/22 12/21/22 12/21/22 Range/Units 06:58 06:58 11:37 RBC 3.61 L (4.30-5.90) m/uL Hgb 10.9 L (13.0-17.5) gm/dL Hct 32.9 L (39.0-53.0) % Lymphocytes # 0.9 L (1.0-4.8) k/uL Sodium 136 L (137-145) mmol/L BUN 24 H (9-20) mg/dL Glucose 104 H (74-99) mg/dL POC Glucose (mg/dL) 123 H (70-110) mg/dL Calcium 8.2 L (8.4-10.2) mg/dL Total Protein 5.3 L (6.3-8.2) g/dL Albumin 2.6 L (3.5-5.0) g/dL 12/21/22 Range/Units 16:37 RBC (4.30-5.90) m/uL Hgb (13.0-17.5) gm/dL Hct (39.0-53.0) % Lymphocytes # (1.0-4.8) k/uL Sodium (137-145) mmol/L BUN (9-20) mg/dL Glucose (74-99) mg/dL POC Glucose (mg/dL) 116 H (70-110) mg/dL Calcium (8.4-10.2) mg/dL Total Protein (6.3-8.2) g/dL Albumin (3.5-5.0) g/dL Assessment and Plan Assessment: Postop day 4: L2S1 laminectomy and decompression Post-op urinary retention 1. Lumbar spondylosis 2. Multilevel vacuum disc phenomenon 3. Bilateral lower extremity radiculopathy 4. Bilateral lower extremity weakness 5. L3-S1 mild foraminal stenosis 6. Neurogenic claudication Plan: -Appreciate sharepoint consultant and team management. -Continue to bladder scan as needed and straight cath per protocol. Flomax has been ordered. -Activity: Ambulate QID, OOB all meals, up and about, limit lifting bending twisting to less than 5 lbs. Use walker or cane if needed for stability. -Daily PT/OT, increase ambulation strength and balance. -Brace when up and about, not needed in bed or chair -Pain control: Adequate at this time -Meds: reviewed -GI ppx: senna, Miralax -DVT PPX: Plavix -Hygiene: Shower today. Maintain dressing clean and dry. Meticulous cleaning after BMs away from the incision site -Encourage IS 10x/hr -Dispo: Anticipate discharge [facility] vs IPR when bed available *I reviewed and discussed this case with my attending Dr. Hooker, whom has reviewed this chart and films and is in agreement with assessment and plan of care as outlined above. I have personally seen and examined the patient, performed the documentation and the assessment and plan as written. Number of minutes spent on the visit: 20m.
[2022-12-22] MEDS: GABAPENTIN 300 MG CAP PO SCH ×3 (08:31→20:48)
[2022-12-22] MEDS: TAMSULOSIN 0.4 MG CAP.ER.24H PO SCH (08:31)
[2022-12-22] MEDS: POTASSIUM CHLORIDE ER 20 MEQ TAB.ER PO SCH (08:31)
[2022-12-22] MEDS: SENNOSIDES-DOCUSATE SODIUM 1 EACH TAB PO SCH (08:31)
[2022-12-22] MEDS: FUROSEMIDE 20 MG TAB PO SCH (08:31)
[2022-12-22] MEDS: glipiZIDE 10 MG TAB PO SCH ×2 (08:31→20:48)
[2022-12-22] MEDS: atenoloL 50 MG TAB PO SCH ×2 (08:31→20:48)
[2022-12-22] MEDS: APIXABAN 5 MG TAB PO SCH ×2 (08:31→20:48)
[2022-12-22] MEDS: CLOPIDOGREL 75 MG TAB PO SCH (08:31)
[2022-12-22] MEDS: ASPIRIN 81 MG PO SCH (08:32)
[2022-12-22] MEDS: MONTELUKAST 10 MG TAB PO SCH (08:32)
[2022-12-22] MEDS: ATORVASTATIN 40 MG TAB PO SCH (08:32)
[2022-12-22] MEDS: methocarbamoL 750 MG TAB PO SCH ×3 (08:32→20:48)
[2022-12-22] MEDS: SODIUM CHLORIDE 0.9% 1,000 ML IV SCH (08:51)
[2022-12-22] MEDS: IPRATROPIUM-ALBUTEROL 3 ML NEB INHALATION SCH ×4 (09:11→20:58)
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
--- NOTE | 2022-12-22 16:11 | CDI ---
Documentation Clarification Form Date: 12/22/2022 4:10:03 PM From: Kelly Jacobs RN, CCDS Email: [email or web address] Admit Date: 12/18/2022 3:15:00 PM Patient Name: Emre Borrego Visit Number: [id number] Discharge Date: ATTENTION: The Clinical Documentation Specialists (CDI) and [facility] Coding Staff appreciate your assistance in clarifying documentation. Please respond to the clarification below the line at the bottom and electronically sign. The CDI & [facility] Coding staff will review the response and follow-up if needed. Please note: Queries are made part of the Legal Health Record. If you have any questions, please contact the author of this message via ITS. Dr. Jeremy Atkinson Acute on chronic anemia is documented in the 12/21 progress note. Additional specificity regarding the type of anemia is requested. History/Risk Factors: s/p lumbar surgery for spondylosis, stenosis and radiculopathy Clinical indicators: 12/21 IM: "Status post lumbar disk disease, acute on chronic anemia secondary to surgery, mild dehydration, possibly give some fluids PT OT rehab placement will be needed." Hemoglobin: 13.3-10.9-10.9 Hematocrit: 40.9-34.0-32.9 Treatment: Daily labs. 0.9 NS@50ml/hr. Please clarify the type and acuity of anemia: [ ] Acute blood loss anemia [ ] Unable to determine [ ] Other, please specify MTDD
[2022-12-22] MEDS: HYDROcodone/APAP 10-325MG 1 EACH TAB PO SCH ×2 (16:55→20:48)
[2022-12-22 16:57] LABS: Glucose,Whole Blood 93 mg/dL (70-110)
[2022-12-22 21:09] LABS: Glucose,Whole Blood 148 mg/dL (70-110)
[2022-12-23] MEDS: HYDROcodone/APAP 10-325MG 1 EACH TAB PO SCH ×6 (00:06→20:48)
[2022-12-23 06:17] LABS: Glucose,Whole Blood 99 mg/dL (70-110)
--- NOTE | 2022-12-23 07:21 | P.PN ---
Subjective Progress Note Date: 12/23/22 Principal diagnosis: 1. Lumbar spondylosis 2. Multilevel vacuum disc phenomenon 3. Bilateral lower extremity radiculopathy 4. Bilateral lower extremity weakness 5. L3-S1 mild foraminal stenosis 6. Neurogenic claudication Patient seen and examined at bedside. Patient was resting comfortably in bed. She was assisted to chair at bedside x1 assist, x1 SBA for safety. Patient tolerated activity well. Encouraged patient to work with physical therapy today. He is looking forward to going to to rehab when that available. When asking the patient about chemotherapy for lung cancer patient states that he has not in any current treatment. He reports that he needs to focus on being able to walk again before treatment. Surgical dressing has been changed. Patient does need to have a bedside bath or shower today. Patient has been afebrile, denies nausea/vomiting, or chest pain. Objective - Vital Signs Vital signs: Vital Signs Temp 97.8 F 12/23/22 02:24 Pulse 65 12/23/22 02:24 Resp 16 12/23/22 02:24 BP 117/64 12/23/22 02:24 Pulse Ox 96 12/23/22 02:24 FiO2 Intake & Output 12/22/22 12/22/22 12/23/22 06:59 18:59 06:59 Intake Total 240 Output Total 200 100 200 Balance 40 -100 -200 Intake: Oral 240 Output: Urine 200 100 200 Other: Voiding Method Urinal Urinal Incontinent Incontinent # Bowel Movements 1 - Exam Physical Examination General: The patient is awake and alert, in no acute distress Skin: Skin is warm and dry with no obvious rashes or lesions. Surgical incision to the lumbar region, incision is well approximated with nidia intact. Surgical dressing changed this morning 12/23/22. Eye: Pupils are equal, round and reactive to light, extra-ocular movements are intact; there is normal conjunctiva bilaterally. Neck: The neck is supple, there is no tenderness and ROM intact. Cardiovascular: There is a regular rate and rhythm. No murmur, rub or gallop is appreciated. Respiratory: Lungs are clear to auscultation, respirations are non-labored, breath sounds are equal. Gastrointestinal: Soft, non-distended, non-tender abdomen. Back: There is no tenderness to palpation in the midline, paralumbar, parathoracic or buttocks region. There is no obvious deformity . Musculoskeletal: ROM limited secondary to pain and stiffness from surgical procedure. Muscle strength in all major muscle groups of bilateral upper extremities 5/5, bilateral lower extremities 4/5. Neurological: CN 2-12 intact. There are no obvious motor or sensory deficits. Movement and coordination equal and intact. Sensory exam to light touch intact C5-T1 and intact from L2-S1. Reflexes 2/4 in bilateral upper and lower extremities. Negative Hoffmans, babinski, and clonus signs. Psychiatric: Cooperative, appropriate mood & affect, normal judgment. - Labs CBC & Chem 7: 12/21/22 06:58 12/21/22 06:58 Labs: Abnormal Lab Results - Last 24 Hours (Table) 12/22/22 Range/Units 21:07 POC Glucose (mg/dL) 148 H (70-110) mg/dL Assessment and Plan Assessment: Postop day 5: L2S1 laminectomy and decompression Post-op urinary retention 1. Lumbar spondylosis 2. Multilevel vacuum disc phenomenon 3. Bilateral lower extremity radiculopathy 4. Bilateral lower extremity weakness 5. L3-S1 mild foraminal stenosis 6. Neurogenic claudication Plan: -Appreciate field technical support consultant and team management. -Continue to bladder scan as needed and straight cath per protocol. Flomax has been ordered. -Activity: Ambulate QID, OOB all meals, up and about, limit lifting bending twisting to less than 5 lbs. Use walker or cane if needed for stability. -Daily PT/OT, increase ambulation strength and balance. -Brace when up and about, not needed in bed or chair -Pain control: Adequate at this time -Meds: reviewed -GI ppx: senna, Miralax -DVT PPX: Plavix -Hygiene: Shower today. Maintain dressing clean and dry. Meticulous cleaning after BMs away from the incision site -Encourage IS 10x/hr -Dispo: Anticipate discharge [facility] vs [facility] when bed available *I reviewed and discussed this case with my attending Dr. Hooker, whom has reviewed this chart and films and is in agreement with assessment and plan of care as outlined above. I have personally seen and examined the patient, performed the documentation and the assessment and plan as written. Number of minutes spent on the visit: 20m.
--- NOTE | 2022-12-23 07:55 | MISC ---
MISCELLANOUS REPORT Acute blood loss anemia secondary to surgery. MMODL / IJN: [id number] /
[2022-12-23] MEDS: MONTELUKAST 10 MG TAB PO SCH (08:59)
[2022-12-23] MEDS: ASPIRIN 81 MG PO SCH (08:59)
[2022-12-23] MEDS: atenoloL 50 MG TAB PO SCH ×2 (08:59→20:49)
[2022-12-23] MEDS: SENNOSIDES-DOCUSATE SODIUM 1 EACH TAB PO SCH (08:59)
[2022-12-23] MEDS: FUROSEMIDE 20 MG TAB PO SCH (08:59)
[2022-12-23] MEDS: CLOPIDOGREL 75 MG TAB PO SCH (08:59)
[2022-12-23] MEDS: methocarbamoL 750 MG TAB PO SCH ×3 (08:59→20:50)
[2022-12-23] MEDS: APIXABAN 5 MG TAB PO SCH ×2 (08:59→20:49)
[2022-12-23] MEDS: ATORVASTATIN 40 MG TAB PO SCH (09:00)
[2022-12-23] MEDS: POTASSIUM CHLORIDE ER 20 MEQ TAB.ER PO SCH (09:00)
[2022-12-23] MEDS: GABAPENTIN 300 MG CAP PO SCH ×3 (09:00→20:49)
[2022-12-23] MEDS: glipiZIDE 10 MG TAB PO SCH ×2 (09:03→20:49)
[2022-12-23] MEDS: TAMSULOSIN 0.4 MG CAP.ER.24H PO SCH (09:03)
[2022-12-23] MEDS: IPRATROPIUM-ALBUTEROL 3 ML NEB INHALATION SCH ×4 (10:04→21:10)
[2022-12-23 11:49] LABS: Glucose,Whole Blood 121 mg/dL (70-110)
[2022-12-23] MEDS: SODIUM CHLORIDE 0.9% 1,000 ML IV SCH (16:22)
[2022-12-23 16:52] LABS: Glucose,Whole Blood 179 mg/dL (70-110)
--- NOTE | 2022-12-23 17:17 | CDI ---
Documentation Clarification Form Date: 12/23/2022 4:17:18 PM From: Kelly Jacobs RN, CCDS Email: [email or web address] Admit Date: 12/18/2022 3:15:00 PM Patient Name: Emre Borrego Visit Number: [id number] Discharge Date: ATTENTION: The Clinical Documentation Specialists (CDI) and [facility] Coding Staff appreciate your assistance in clarifying documentation. Please respond to the clarification below the line at the bottom and electronically sign. The CDI & [facility] Coding staff will review the response and follow-up if needed. Please note: Queries are made part of the Legal Health Record. If you have any questions, please contact the author of this message via ITS. Dr. Jeremy Atkinson Postoperative urinary retention is documented in the progress notes starting on 12/19 and the patient had a L2-S1 laminectomy and decompression. Additional clarification is requested regarding the relationship, if any, that exists between the diagnosis and the procedure. Patients Admitting Diagnosis: Lumbar spondylosis, foraminal stenosis, BLLE weakness and radiculopathy Post-Operative Diagnosis: same Procedure performed: L2-S1 laminectomy and decompression History/Risk Factors: Lumbar spondylosis, multi vacuum disc phenomenon, BLLE radiculopathy, BLLE weakness, L3-S1 foraminal stenosis, neurogenic claudication Clinical Indicators: 12/19 Ortho: "Patient had Turcios catheter removed approximately at midnight and has yet to void on his own." 12/19 IM: "Still having problems with urinary retention, patient not very keen to undergo straight cath." 12/20 Ortho: "Postoperative urinary retention. Continue Flomax at this time for the urinary retention. Urinary retention seems to have improved significantly with the use of Flomax." 12/21 IM: "Ambulate as tolerated, Flomax for BPH." Treatment: Flomax 0.4mg po daily. IVF @50/hr. Bladder scan and straight catheterization per protocol In order to accurately reflect this patients severity of illness, please clarify if urinary retention is due to: [ ] Postop urinary retention is due to the surgical procedure [ ] Postop urinary retention is due to BPH [ ] Postop urinary retention is an expected outcome of the surgical procedure related to anesthesia [ ] Other please specify ____ [ ] Unable to determine MTDD
--- NOTE | 2022-12-23 18:39 | P.CONS ---
History of Present Illness - Reason for Consult Consult date: 12/23/22 Foot ulcers Requesting physician: Jeremy Atkinson - Chief Complaint Back pain x few weeks - History of Present Illness Patient is 67-year male who has been electively admitted to the hospital on 12/18/2022 for chronic back pain and the patient is status post L2-S1 decompressive laminectomy since surgery the patient has been in the hospital patient also have a history of bilateral feet wound worse apparently the patient has been following at [facility] wound care center patient did have a wound on the dorsal aspect of his right foot which apparently has been there for a couple of weeks patient not very sure how it started possibly from swelling in the leg and developing blister that has ruptured currently being treated with [facility] patient also have a ulceration on the right first and second toe and ulceration on the left big toe as well as fourth toe patient has been previously evaluated by the wound care nurse and those are currently being treated with the [facility] infectious disease was consulted by the medical team after midnight for foot ulcer and further management patient currently denies having any fever or any chills and no fever has been recorded during this hospital stay patient complaining of mostly pain to the lower back area some controlled with the pain medication patient did have mild elevated white count on 19 December however the white count has normalized as of 2 days ago no CBC has been done since then and did have a normal kidney function liver exams are normal patient has been complaining about healing of these wounds and did have some dull aching pain unable to quantify it any further denies have any foul-smelling drainage and no surrounding redness Review of Systems Positive point and negatives has been mentioned in the HPI, complete review of systems was performed and all other systems are negative Past Medical History Past Medical History: COPD, CVA/TIA, Diabetes Mellitus, Hypertension, Musculoskeletal Disorder Additional Past Medical History / Comment(s): Hx. "mini stroke after 2nd covid shot", states has been on blood thinners since TIA 2020, hx. fall last 2021 that injured back, frequent falls History of Any Multi-Drug Resistant Organisms: None Reported Past Surgical History: Hernia Repair Additional Past Surgical History / Comment(s): Excision L Facial lipoma, repair hiatal hernia Past Anesthesia/Blood Transfusion Reactions: No Reported Reaction Past Psychological History: No Psychological Hx Reported Additional Psychological History / Comment(s): Pt is currently staying with his exwife and daughter, it is not a very good situation. Pt states he lives in [place] but is stuck here right now because of everything going on medically Smoking Status: Current every day smoker Past Alcohol Use History: None Reported Additional Past Alcohol Use History / Comment(s): Pt states he use to drink about 20 years ago, quit smoking 09/2022, was 2ppd since teens Past Drug Use History: None Reported - Past Family History Mother Family Medical History: Cancer Additional Family Medical History / Comment(s): Mother of lung cancer. Father History Unknown: Yes Medications and Allergies Home Medications Medication Instructions Recorded Confirmed Type Montelukast [Singulair] 10 mg PO DAILY 09/30/19 12/18/22 History Repaglinide [Prandin] 1 mg PO TID 09/30/19 12/18/22 History Aspirin [Adult Low Dose Aspirin EC] 81 mg PO DAILY 04/15/22 12/17/22 History Atorvastatin [Lipitor] 40 mg PO DAILY 04/15/22 12/18/22 History glyBURIDE [Diabeta] 5 mg PO BID 04/15/22 12/18/22 History methocarbamoL [Robaxin] 500 mg PO BID PRN 30 Days #60 tab 04/30/22 12/18/22 Rx rOPINIRole HCL [Requip] 1 mg PO TID 06/02/22 12/18/22 History Gabapentin 600 mg PO TID 06/17/22 12/18/22 History Potassium Chloride [Klor-Con M20] 20 meq PO DAILY 06/17/22 12/18/22 History atenoloL [Tenormin] 50 mg PO BID 06/17/22 12/18/22 History Furosemide [Lasix] 20 mg PO DAILY 09/29/22 12/18/22 History Acetaminophen Tab [Tylenol Tab] 500 mg PO Q6H PRN #30 tablet 10/04/22 12/18/22 Rx Apixaban [Eliquis] 5 mg PO BID 12/05/22 12/17/22 History Clopidogrel [Plavix] 75 mg PO DAILY 12/05/22 12/17/22 History HYDROcodone/APAP 5-325MG [[place] 1 tab PO BID PRN 12/17/22 12/18/22 History 5-325] Gabapentin 600 mg PO TID #90 tab 12/25/22 Rx HYDROcodone/APAP 10-325MG [[place] 1 tab PO Q4-6H PRN #42 tab 12/25/22 Rx 10-325] Sennosides/Docusate Sodium [[place] 1 each PO DAILY PRN #20 tablet 12/25/22 Rx Plus 8.6-50 mg Tablet] cefaDROXiL [Duricef] 500 mg PO Q12HR 5 Days #10 cap 12/25/22 Rx methocarbamoL [Robaxin-750] 750 mg PO TID #90 tab 12/25/22 Rx Allergies Allergy/AdvReac Type Severity Reaction Status Date / Time No Known Allergies Allergy Verified 12/18/22 10:19 Physical Exam Vitals: Vital Signs Temp Pulse Resp BP Pulse Ox 12/23/22 07:10 97.9 F 56 L 18 135/65 98 12/23/22 02:24 97.8 F 65 16 117/64 96 12/22/22 19:40 97.4 F L 69 16 100/58 94 L 12/22/22 15:19 98.0 F 66 18 112/49 93 L Intake and Output 12/22/22 12/23/22 12/23/22 22:59 06:59 14:59 Output Total 100 200 Balance -100 -200 Output: Urine 100 200 Other: Voiding Method Urinal Incontinent # Bowel Movements 1 GENERAL DESCRIPTION: Elderly male lying in bed, no distress. No tachypnea or accessory muscle of respiration use. HEENT: Shows Pallor , no scleral icterus. Oral mucous membrane is dry. NECK: Trachea central, no thyromegaly. LUNGS: Unlabored breathing. Decreased breath sounds at the base HEART: S1, S2, regular rate and rhythm. No loud murmur ABDOMEN: Soft, no tenderness , guarding or rigidity, no organomegaly EXTREMITIES: Right foot dorsum did have a wound with some slough tissue no surrounding redness superficial ulceration to the toe area and some on the left foot toe with no foul-smelling drainage or redness SKIN: No rash, no masses palpable. NEUROLOGICAL: The patient is awake, alert, oriented x3, mood and affect normal. Results CBC & Chem 7: 12/24/22 05:19 12/24/22 05:19 Labs: Abnormal Lab Results - Last 24 Hours (Table) 12/22/22 Range/Units 21:07 POC Glucose (mg/dL) 148 H (70-110) mg/dL Assessment and Plan (1) Non-pressure chronic ulcer of other part of left foot with fat layer exposed Status: Acute Code(s): L97.522 - NON-PRS CHRONIC ULCER OTH PRT LEFT FOOT W FAT LAYER EXPOSED SNOMED Code(s): 64242142504416361 (2) Non-pressure chronic ulcer of other part of right foot limited to breakdown of skin Status: Acute Code(s): L97.511 - NON-PRS CHRONIC ULCER OTH PRT R FOOT LIMITED TO BRKDWN SKIN SNOMED Code(s): 19614498058293653 (3) Non-pressure chronic ulcer of other part of right foot with fat layer exposed Status: Acute Code(s): L97.512 - NON-PRS CHRONIC ULCER OTH PRT RIGHT FOOT W FAT LAYER EXPOSED SNOMED Code(s): 01118187525138121 Plan: 1patient with multiple ulceration to the right foot including the dorsum of the right foot as well as first and second toe with some slough tissue with no surrounding redness we will recommend local wound care to continue with the [facility] and there is no need for any antibiotic therapy 2-patient also with superficial ulceration to the lesser toes of his left foot with no significant surrounding redness or any foul-smelling drainage continue local wound care with [facility] patient is afebrile and no evidence of any cellulitis locally white count is normal no need for antibiotic therapy We will follow on clinical condition and cultures to further adjust medication if needed Thank you for this consultation we will follow the patient along with you Time with Patient: Greater than 30
[2022-12-23 21:20] LABS: Glucose,Whole Blood 177 mg/dL (70-110)
--- NOTE | 2022-12-23 23:34 | PN ---
PROGRESS NOTE SUBJECTIVE: The patient is still having difficulty ambulating. He states he cannot move. They were able to get him up to the chair, but he is not walking at all, and he is very upset. OBJECTIVE: VITAL SIGNS: Saturation 94% on room air, blood pressure 100 to 112 over 40s to 50s, temperature 97.4, respiratory rate 16 to 18, pulse 70s to 80s. HEMATOLOGY: 2+ edema. PSYCHIATRIC: Fair mood and affect. NEUROLOGIC: Alert and oriented x3. Dr. Pinon is consulted for possible rehab. . The patient is not doing well. He needs PT and OT. ASSESSMENT AND PLAN: Per Dr. Pinon, pressure chronic ulcer of the right foot. He has chronic lower back pain, acute exacerbation of lumbar back pain, mediastinal adenopathy. He has history of lung cancer, type 2 diabetes with foot ulcers, and lumbar spondylosis, status post surgery. PT and OT. Prognosis is guarded. Please see further orders. MMODL / IJN: [id number] /
[2022-12-24] MEDS: HYDROcodone/APAP 10-325MG 1 EACH TAB PO SCH ×7 (00:19→23:37)
[2022-12-24] MEDS: HYDROmorphone 1 MG/ML 1 ML SYRINGE IVP PRN ×2 (01:11→23:37)
--- NOTE | 2022-12-24 02:55 | PN ---
PROGRESS NOTE Postoperative urinary retention secondary to BPH and anesthesia. MMODL / IJN: [id number] /
--- NOTE | 2022-12-24 03:40 | PN ---
PROGRESS NOTE SUBJECTIVE: This 67-year-old white male, remains on cefazolin, status post lumbar surgery, is on Eliquis for atrial fibrillation. He is on Tenormin for hypertension, Glucophage for type 2 diabetes, pain control, Requip for restless legs syndrome, Flomax for BPH. He needs to go to a skilled nursing for physical therapy in [facility]. He is saturating 95 on room air. OBJECTIVE: VITAL SIGNS: Blood pressure 123/71, pulse 66, temperature 98, and respiratory rate 16. CARDIOVASCULAR: S1, S2. LUNGS: Scattered rhonchi and wheeze. HEMATOLOGY: Negative for Homans. PSYCH: Fair mood and affect. PLAN: You have to continue for outpatient PT/OT due to leg weakness and pain down his legs. Continue with COPD, CVA, TIA, medicines, diabetes mellitus, hypertension, musculoskeletal disorder, generalized weakness, systolic CHF. Home medicines have been reviewed, labs reviewed. He has ulcerations of the foot. Dr. Matute has seen him. No significant surrounding rashes, Medihoney will be placed to the wounds. Prognosis guarded. Follow up in next 24 to 48 hours for rehab placement. MMODL / IJN: [id number] /
[2022-12-24 05:59] LABS: Glucose,Whole Blood 141 mg/dL (70-110)
[2022-12-24] MEDS: IPRATROPIUM-ALBUTEROL 3 ML NEB INHALATION SCH ×5 (08:27→22:06)
[2022-12-24] MEDS: BUDESONIDE 0.5 MG/2 ML NEBU INHALATION SCH ×3 (08:27→22:06)
[2022-12-24] MEDS: glipiZIDE 10 MG TAB PO SCH ×2 (09:10→19:35)
[2022-12-24] MEDS: ASPIRIN 81 MG PO SCH (09:10)
[2022-12-24] MEDS: TAMSULOSIN 0.4 MG CAP.ER.24H PO SCH (09:10)
[2022-12-24] MEDS: ATORVASTATIN 40 MG TAB PO SCH (09:10)
[2022-12-24] MEDS: GABAPENTIN 300 MG CAP PO SCH ×3 (09:10→19:34)
[2022-12-24] MEDS: MONTELUKAST 10 MG TAB PO SCH (09:10)
[2022-12-24] MEDS: methocarbamoL 750 MG TAB PO SCH ×3 (09:10→19:35)
[2022-12-24] MEDS: CLOPIDOGREL 75 MG TAB PO SCH (09:10)
[2022-12-24] MEDS: SENNOSIDES-DOCUSATE SODIUM 1 EACH TAB PO SCH (09:11)
[2022-12-24] MEDS: atenoloL 50 MG TAB PO SCH ×2 (09:11→19:35)
[2022-12-24] MEDS: FUROSEMIDE 20 MG TAB PO SCH (09:11)
[2022-12-24] MEDS: APIXABAN 5 MG TAB PO SCH ×2 (09:11→19:35)
[2022-12-24] MEDS: POTASSIUM CHLORIDE ER 20 MEQ TAB.ER PO SCH (09:11)
--- NOTE | 2022-12-24 09:28 | P.PN ---
Subjective Progress Note Date: 12/24/22 Principal diagnosis: 1. Lumbar spondylosis 2. Multilevel vacuum disc phenomenon 3. Bilateral lower extremity radiculopathy 4. Bilateral lower extremity weakness 5. L3-S1 mild foraminal stenosis 6. Neurogenic claudication Patient seen and examined at bedside. Patient was sitting at bedside. He reports he is wanting to increase his activity today. Encouraged patient to continue working with physical therapy and request staff assistance when getting up. He is looking forward to going to to rehab when that available. Surgical dressing can be changed as needed to maintain incision clean and dry. Patient has been afebrile, denies nausea/vomiting, or chest pain. Objective - Vital Signs Vital signs: Vital Signs Temp 97.9 F 12/24/22 02:00 Pulse 66 12/24/22 02:00 Resp 16 12/23/22 20:59 BP 135/64 12/24/22 02:00 Pulse Ox 93 L 12/24/22 02:00 FiO2 Intake & Output 12/23/22 12/24/22 12/24/22 18:59 06:59 18:59 Intake Total 1080 Output Total 1000 500 Balance 80 -500 Intake: Oral 1080 Output: Urine 1000 500 Other: Voiding Method Urinal Urinal Incontinent Incontinent - Exam Physical Examination General: The patient is awake and alert, in no acute distress Skin: Skin is warm and dry with no obvious rashes or lesions. Surgical incision to the lumbar region, incision is well approximated with nidia intact. Eye: Pupils are equal, round and reactive to light, extra-ocular movements are intact; there is normal conjunctiva bilaterally. Neck: The neck is supple, there is no tenderness and ROM intact. Cardiovascular: There is a regular rate and rhythm. No murmur, rub or gallop is appreciated. Respiratory: Lungs are clear to auscultation, respirations are non-labored, breath sounds are equal. Gastrointestinal: Soft, non-distended, non-tender abdomen. Back: There is no tenderness to palpation in the midline, paralumbar, parathoracic or buttocks region. There is no obvious deformity . Musculoskeletal: ROM limited secondary to pain and stiffness from surgical procedure. Muscle strength in all major muscle groups of bilateral upper extremities 5/5, bilateral lower extremities 4/5. Neurological: CN 2-12 intact. There are no obvious motor or sensory deficits. Movement and coordination equal and intact. Sensory exam to light touch intact C5-T1 and intact from L2-S1. Reflexes 2/4 in bilateral upper and lower extremities. Negative Hoffmans, babinski, and clonus signs. Psychiatric: Cooperative, appropriate mood & affect, normal judgment. - Labs CBC & Chem 7: 12/21/22 06:58 12/21/22 06:58 Labs: Abnormal Lab Results - Last 24 Hours (Table) 12/23/22 12/23/22 12/23/22 Range/Units 11:47 16:50 21:18 POC Glucose (mg/dL) 121 H 179 H 177 H (70-110) mg/dL 12/24/22 Range/Units 05:56 POC Glucose (mg/dL) 141 H (70-110) mg/dL Assessment and Plan Assessment: Postop day 6: L2S1 laminectomy and decompression 1. Lumbar spondylosis 2. Multilevel vacuum disc phenomenon 3. Bilateral lower extremity radiculopathy 4. Bilateral lower extremity weakness 5. L3-S1 mild foraminal stenosis 6. Neurogenic claudication Plan: -Appreciate development consultant and team management. -Continue to bladder scan as needed and straight cath per protocol. Flomax has been ordered. -Activity: Ambulate QID, OOB all meals, up and about, limit lifting bending twisting to less than 5 lbs. Use walker or cane if needed for stability. -Daily PT/OT, increase ambulation strength and balance. -Brace when up and about, not needed in bed or chair -Pain control: Adequate at this time -Meds: reviewed -GI ppx: senna, Miralax -DVT PPX: Plavix -Hygiene: Shower today. Maintain dressing clean and dry. Meticulous cleaning after BMs away from the incision site -Encourage IS 10x/hr -Dispo: Patient is cleared from orthopedic standpoint for discharge. Anticipate discharge to [facility] when bed available. *I reviewed and discussed this case with my attending Dr. Hooker, whom has reviewed this chart and films and is in agreement with assessment and plan of care as outlined above. I have personally seen and examined the patient, performed the documentation and the assessment and plan as written. Number of minutes spent on the visit: 20m.
[2022-12-24 10:54] LABS: Basophils # (A) 0.04 X 10*3/uL (0.00-0.10); Basophils % (A) 0.6 %; Eosinophils # (A) 0.02 X 10*3/uL (0.04-0.35); Eosinophils % (A) 0.3 %; HCT 33.7 % (39.6-50.0); HGB 10.6 g/dL (13.0-17.0); Immature Grans, Automated 0.3 %; Lymphocytes # (A) 1.34 X 10*3/uL (0.90-5.00); Lymphocytes % (A) 21.6 %; MCH 28.9 pg (27.0-32.0); MCHC 31.5 g/dL (32.0-37.0); MCV 91.8 fL (80.0-97.0); Mean Platelet Volume 11.4 fL (9.5-12.2); Monocytes # (A) 0.85 X 10*3/uL (0.20-1.00); Monocytes % (A) 13.7 %; NRBC Per 100 WBC 0 /100 WBCS (0.0-0.0); Neutrophils # (A) 3.94 X 10*3/uL (1.80-7.70); Neutrophils % (A) 63.5 %; Platelet Count 293 X 10*3/uL (140-440); RBC 3.67 X 10*6/uL (4.40-5.60); RDW 14.7 % (11.5-14.5); WBC 6.21 X 10*3/uL (4.50-10.00)
[2022-12-24 11:10] LABS: ALT 17 U/L (10-49); AST 10 U/L (14-35); African American GFR (CKD) 118.1 (60.0-200.0); Albumin/Globulin Ratio 1.27 (1.60-3.17); Alkaline Phosphatase 162 U/L (41-126); BUN/Creat Ratio 31.15 Ratio (12.00-20.00); Calcium 8.6 mg/dL (8.7-10.3); Carbon Dioxide 25.2 mmol/L (20.0-27.5); Chloride 104 mmol/L (96-109); Globulin 2.3 g/dL (1.6-3.3); Glucose 124 mg/dL (70-110); Non-African American GFR(CKD) 101.9 (60.0-200.0); Potassium 4.3 mmol/L (3.5-5.5); Sodium 137 mmol/L (135-145); Total Bilirubin <0.15 mg/dL (0.30-1.20); Total Protein 5.3 g/dL (6.2-8.2)
[2022-12-24 12:15] LABS: Glucose,Whole Blood 156 mg/dL (70-110)
[2022-12-24] MEDS: SODIUM CHLORIDE 0.9% 1,000 ML IV SCH (12:51)
--- NOTE | 2022-12-24 14:55 | P.OP ---
Date of Procedure: 12/18/22 Preoperative Diagnosis: 1. L2-S1 spondylosis with stenosis, severe 2. Neurogenic claudication 3. LE weakness 4. LE radiculopathy Postoperative Diagnosis: 1. L2-S1 spondylosis with stenosis, severe 2. Neurogenic claudication 3. LE weakness 4. LE radiculopathy Procedure(s) Performed: 1. Bilateral laminectomy partial medial facetectomy and foraminotomy L2 through S1 ([id number], [id number]) 2. Dural repair with patch graft (73700, [id number]) Implants: None Anesthesia: GETA Surgeon: Martinez Hooker Mold Capper Helper #1: Sara Reddy (Was present and assisted with all aspects of the case from positioning to dressing placement) Estimated Blood Loss (ml): 300 IV fluids (ml): 1,500 Urine output (ml): 450 Pathology: none sent Condition: stable Disposition: PACU Indications for Procedure: Mr. Borrego is presenting for evaluation of low back pain. It was my pleasure to have seen and examined Mr. Borrego. In our visit today we have had a chance to go over subjective complaints, physical examination findings and treatments including the natural course history without intervention and various interventional options. The patients imaging demonstrates: CT Myelogram scan from 04/23/22 of Lumbar Spine: IMPRESSION: 1. No evidence of fracture of the lumbar spine or evidence of disc herniation. 2. Mild multilevel degenerative disc disease. XRay taken on 04/18/22 of Lumbar Spine and Pelvis: Moderate multilevel spondylitic changes with preserved alignment. Osteophytes noted at multiple levels. Diminished disc height with vacuum disc phenomenon at multiple levels. No acute osseous abnormalities. CT scan from 02/05/22 of Lumbar Spine: IMPRESSION: 1.Multilevel degenerative disc changes with vacuum disc phenomenon lumbar spine. 2. Spondylosis. 3. Foraminal narrowing increasing in the lower lumbar spine On physical exam, Mr. Borrego demonstrates: He continues to report a diffuse aching and intermittent sharp lumbar pain that radiates into the bilateral lower extremities and weakness. He notes numbness or tingling in his lower extremities at this time. I have explained to the patient that as their condition progresses it will cause further neurological deficits and eventual paralysis. Based on the patients imaging, physical exam, and the rapid progression and disabling nature of their symptoms, at this time I recommend surgery in the form of a: L2-S1 Decompression . I discussed the risk and benefits of this procedure at length with Mr. Borrego . The patient and his agreed to considered pursuing the procedure abovementioned. Prior to surgery, she should follow up with her PCP (Cardio, ID, IM etc) for clearance. Questions were invited and answered, and the patient wishes to proceed as outlined below. Currently, I am recommendin. L2-S1 Decompression Description of Procedure: The patient was seen and examined in the preoperative area. All preoperative protocols were followed. Informed consent was obtained risks and benefits of the procedure were discussed at length. Risks including bleeding infection damage to the surrounding tissue and risk of reoperation were discussed with the patient. Risk of anesthesia up to and including was a discussed with the patient. These are outlined in the risk review. They were willing to accept these risks and all of the risks of surgery. The patient was given a weight-based dose of antibiotics in the form of 2 g Ancef. The patient was seen and evaluated by the anesthesia team who deemed them fit for surgery. The site was marked, the patient was willing to proceed with the procedure. The patient was transferred to the operative suite by the Department of anesthesia. They were then drifted off to sleep by the department anesthesia and GETA was performed. The patient tolerated this well. [Turcios catheter was placed by nursing staff, atraumatically]. Once confirmation of lines and ventilation the patient was transferred to a [prone Evan table very carefully]. All bony prominences including wrists, elbows, axilla, chest, hips, and thighs, and feet were padded very well. Special attention was paid to the genitalia and these were padded accordingly. SCDs were placed on bilateral lower extremities and were connected. Arms were well padded and placed [on arm boards up and out in the 90/90 position]. Once in position, again we confirmed good ventilation capabilities and that lines were running appropriately. The patient's lumbar spine was then exposed. 1010s were placed outlining the incision site. Standard alcohol was used to clean the incision site and allowed to dry. C-arm was used to biomark the patient and confirm level for incision which was marked with a skin marker. Operative briefing was performed with all teams and everyone in agreement to proceed. The patient was then prepped and draped in a normal sterile fashion. Timeout was then performed and all parties were in agreement with the procedure to be performed. Midline skin incision was made over the previously bowel marked. Dissection taken down to the spinous processes and lamina of L2 through S1. Subperiosteal dissection taken down the lamina facet joints which were identified. A [place] 4 placed at the pars of L4 followed by lateral fluoroscopic image confirmed the levels or operation. Once we confirm levels exposure was complete bilateral laminectomy, partial medial facetectomy and foraminotomies performed using high- speed bur at L2 through S1. Midline cut was followed by side cuts which allowed for decompression centrally as well as laterally. Foraminotomies as well as clean up was done with a 40 and 60 Kerrison. Bilateral foraminotomies were performed. Good decompression was noted throughout. At the level of L2-L3 there was a small punctate dural lesion which was noted due to sharp bone in the area. This was identified and sutured with 6-0 Prolene. A fat graft was then taken from the subcu and sutured into the dura over this area as well for a patch graft. Once this was accomplished a Valsalva to 40 mmHg was performed and there is no continuous leak. Complete disks decompression was completed. The wound was then copiously irrigated with 3 L of antibiotic solution 3 L of normal sterile saline 3 L of gentamicin antibiotic solution. Surgicel was then placed over the dura Tisseel was placed over the dura and the same type configuration with Surgicel and Tisseel for sealing of this tear more completely. There is no continuous leak. Meticulous hemostasis performed. After this a layered closure was performed. First of the deep fascia #1 PDS. Superficial and deep subcu were closed with 0 Vicryl 2-0 Vicryl placed in the superficial subcu. Douglas were placed in the skin. The wound edges approximated very well. The wound was then cleaned and dressed sterilely with an operative foam dressing 4 x 4's and Tegaderm. The patient was transferred back to their hospital bed atraumatically. Patient was then awakened and extubated by the department of anesthesia having tolerated the procedure very well with no complications. They were transferred to the postoperative care unit in stable condition.
--- NOTE | 2022-12-24 16:36 | P.PN ---
Subjective Progress Note Date: 12/24/22 Principal diagnosis: Bilateral feet wound Patient is 67-year male who has been electively admitted to the hospital on 12/18/2022 for chronic back pain and the patient is status post L2-S1 decompressive laminectomy since surgery the patient has been in the hospital patient also have a history of bilateral feet wound prompting this infection disease consultation On today's evaluation that is 12/24/2022, the patient denies having any fever or chills, still complaining of pain to the lower back area, not so much pain to bilateral feet wound area no chest pain shortness of cough no abdominal pain or diarrhea Objective - Vital Signs Vital signs: Vital Signs Temp 98.0 F 12/24/22 08:12 Pulse 60 12/24/22 08:12 Resp 16 12/24/22 08:12 BP 132/86 12/24/22 08:12 Pulse Ox 97 12/24/22 08:12 FiO2 Intake & Output 12/23/22 12/24/22 12/24/22 18:59 06:59 18:59 Intake Total 1080 Output Total 1000 500 Balance 80 -500 Intake: Oral 1080 Output: Urine 1000 500 Other: Voiding Method Urinal Urinal Incontinent Incontinent - Exam GENERAL DESCRIPTION: An elderly male lying in bed in no distress RESPIRATORY SYSTEM: Unlabored breathing , decreased breath sounds at bases HEART: S1 S2 regular rate and rhythm , ABDOMEN: Soft , no tenderness EXTREMITIES: Bilateral feet was are currently dressed - Labs CBC & Chem 7: 12/24/22 05:19 12/24/22 05:19 Labs: Abnormal Lab Results - Last 24 Hours (Table) 12/23/22 12/23/22 12/24/22 Range/Units 16:50 21:18 05:19 RBC 3.67 L (4.40-5.60) X 10*6/uL Hgb 10.6 L (13.0-17.0) g/dL Hct 33.7 L (39.6-50.0) % MCHC 31.5 L (32.0-37.0) g/dL RDW 14.7 H (11.5-14.5) % Eosinophils # 0.02 L (0.04-0.35) X 10*3/uL Anion Gap (10.00-18.00) mmol/L BUN/Creatinine Ratio (12.00-20.00) Ratio Glucose (70-110) mg/dL POC Glucose (mg/dL) 179 H 177 H (70-110) mg/dL Calcium (8.7-10.3) mg/dL Total Bilirubin (0.30-1.20) mg/dL AST (14-35) U/L Alkaline Phosphatase (41-126) U/L Total Protein (6.2-8.2) g/dL Albumin (3.8-4.9) g/dL Albumin/Globulin Ratio (1.60-3.17) g/dL 12/24/22 12/24/22 12/24/22 Range/Units 05:19 05:56 12:13 RBC (4.40-5.60) X 10*6/uL Hgb (13.0-17.0) g/dL Hct (39.6-50.0) % MCHC (32.0-37.0) g/dL RDW (11.5-14.5) % Eosinophils # (0.04-0.35) X 10*3/uL Anion Gap 8.20 L (10.00-18.00) mmol/L BUN/Creatinine Ratio 31.15 H (12.00-20.00) Ratio Glucose 124 H (70-110) mg/dL POC Glucose (mg/dL) 141 H 156 H (70-110) mg/dL Calcium 8.6 L (8.7-10.3) mg/dL Total Bilirubin <0.15 L (0.30-1.20) mg/dL AST 10 L (14-35) U/L Alkaline Phosphatase 162 H (41-126) U/L Total Protein 5.3 L (6.2-8.2) g/dL Albumin 3.0 L (3.8-4.9) g/dL Albumin/Globulin Ratio 1.27 L (1.60-3.17) g/dL Assessment and Plan (1) Non-pressure chronic ulcer of other part of left foot with fat layer exposed Current Visit: Yes Status: Acute Code(s): L97.522 - NON-PRS CHRONIC ULCER OTH PRT LEFT FOOT W FAT LAYER EXPOSED SNOMED Code(s): 98763486178757817 (2) Non-pressure chronic ulcer of other part of right foot limited to breakdown of skin Current Visit: Yes Status: Acute Code(s): L97.511 - NON-PRS CHRONIC ULCER OTH PRT R FOOT LIMITED TO BRKDWN SKIN SNOMED Code(s): 52787987977519538 (3) Non-pressure chronic ulcer of other part of right foot with fat layer exposed Current Visit: No Status: Acute Code(s): L97.512 - NON-PRS CHRONIC ULCER OTH PRT RIGHT FOOT W FAT LAYER EXPOSED SNOMED Code(s): 73506858213378839 Plan: 1patient with multiple ulceration to the right foot including the dorsum of the right foot as well as first and second toe with some slough tissue with no surrounding redness we will recommend local wound care to continue with the [facility] 2-patient also with superficial ulceration to the lesser toes of his left foot with no significant surrounding redness or any foul-smelling drainage continue local wound care with [facility] 3- patient is afebrile and no evidence of any cellulitis involving bilateral lower Feet wounds, white count is normal no need for antibiotic therapy
[2022-12-24 16:44] LABS: Glucose,Whole Blood 121 mg/dL (70-110)
[2022-12-24 20:41] LABS: Glucose,Whole Blood 149 mg/dL (70-110)
[2022-12-25] MEDS: HYDROcodone/APAP 10-325MG 1 EACH TAB PO SCH ×5 (04:06→19:53)
[2022-12-25 06:29] LABS: Glucose,Whole Blood 165 mg/dL (70-110)
[2022-12-25] MEDS: BUDESONIDE 0.5 MG/2 ML NEBU INHALATION SCH ×2 (07:48→21:02)
[2022-12-25] MEDS: IPRATROPIUM-ALBUTEROL 3 ML NEB INHALATION SCH ×4 (07:48→21:02)
--- NOTE | 2022-12-25 08:09 | P.PN ---
Subjective Progress Note Date: 12/25/22 Principal diagnosis: 1. Lumbar spondylosis 2. Multilevel vacuum disc phenomenon 3. Bilateral lower extremity radiculopathy 4. Bilateral lower extremity weakness 5. L3-S1 mild foraminal stenosis 6. Neurogenic claudication Patient seen and examined at bedside. Patient was sitting up in chair. He states that he is feeling better today. Encouraged patient to continue working with physical therapy and request staff assistance when getting up. He is looking forward to going to to rehab when that available. Surgical dressing can be changed as needed to maintain incision clean and dry, may leave open to air if no drainage. Scripts have been left in chart for possible discharge today. Patient has been afebrile, denies nausea/vomiting, or chest pain. Objective - Vital Signs Vital signs: Vital Signs Temp 98.2 F 12/25/22 01:08 Pulse 64 12/25/22 01:08 Resp 16 12/25/22 01:08 BP 143/77 12/25/22 01:08 Pulse Ox 94 L 12/25/22 01:08 FiO2 Intake & Output 12/24/22 12/25/22 12/25/22 18:59 06:59 18:59 Intake Total 600 940 Output Total 550 1150 Balance 50 -210 Intake: Intake, IV Titration 600 600 Amount Sodium Chloride 0.9% 1, 600 600 000 ml @ 50 mls/hr IV . Q20H [facility] Rx#:[id number] Oral 340 Output: Urine 550 1150 Other: Voiding Method Urinal # Voids 1 - Exam Physical Examination General: The patient is awake and alert, in no acute distress Skin: Skin is warm and dry with no obvious rashes or lesions. Surgical incision to the lumbar region, incision is well approximated with nidia intact. Eye: Pupils are equal, round and reactive to light, extra-ocular movements are intact; there is normal conjunctiva bilaterally. Neck: The neck is supple, there is no tenderness and ROM intact. Cardiovascular: There is a regular rate and rhythm. No murmur, rub or gallop is appreciated. Respiratory: Lungs are clear to auscultation, respirations are non-labored, breath sounds are equal. Gastrointestinal: Soft, non-distended, non-tender abdomen. Back: There is no tenderness to palpation in the midline, paralumbar, parathoracic or buttocks region. There is no obvious deformity . Musculoskeletal: ROM limited secondary to pain and stiffness from surgical procedure. Muscle strength in all major muscle groups of bilateral upper extremities 5/5, bilateral lower extremities 4/5. Neurological: CN 2-12 intact. There are no obvious motor or sensory deficits. Movement and coordination equal and intact. Sensory exam to light touch intact C5-T1 and intact from L2-S1. Reflexes 2/4 in bilateral upper and lower extremities. Negative Hoffmans, babinski, and clonus signs. Psychiatric: Cooperative, appropriate mood & affect, normal judgment. - Labs CBC & Chem 7: 12/24/22 05:19 12/24/22 05:19 Labs: Abnormal Lab Results - Last 24 Hours (Table) 12/24/22 12/24/22 12/24/22 Range/Units 05:19 05:19 12:13 RBC 3.67 L (4.40-5.60) X 10*6/uL Hgb 10.6 L (13.0-17.0) g/dL Hct 33.7 L (39.6-50.0) % MCHC 31.5 L (32.0-37.0) g/dL RDW 14.7 H (11.5-14.5) % Eosinophils # 0.02 L (0.04-0.35) X 10*3/uL Anion Gap 8.20 L (10.00-18.00) mmol/L BUN/Creatinine Ratio 31.15 H (12.00-20.00) Ratio Glucose 124 H (70-110) mg/dL POC Glucose (mg/dL) 156 H (70-110) mg/dL Calcium 8.6 L (8.7-10.3) mg/dL Total Bilirubin <0.15 L (0.30-1.20) mg/dL AST 10 L (14-35) U/L Alkaline Phosphatase 162 H (41-126) U/L Total Protein 5.3 L (6.2-8.2) g/dL Albumin 3.0 L (3.8-4.9) g/dL Albumin/Globulin Ratio 1.27 L (1.60-3.17) g/dL 12/24/22 12/24/22 12/25/22 Range/Units 16:43 20:40 06:27 RBC (4.40-5.60) X 10*6/uL Hgb (13.0-17.0) g/dL Hct (39.6-50.0) % MCHC (32.0-37.0) g/dL RDW (11.5-14.5) % Eosinophils # (0.04-0.35) X 10*3/uL Anion Gap (10.00-18.00) mmol/L BUN/Creatinine Ratio (12.00-20.00) Ratio Glucose (70-110) mg/dL POC Glucose (mg/dL) 121 H 149 H 165 H (70-110) mg/dL Calcium (8.7-10.3) mg/dL Total Bilirubin (0.30-1.20) mg/dL AST (14-35) U/L Alkaline Phosphatase (41-126) U/L Total Protein (6.2-8.2) g/dL Albumin (3.8-4.9) g/dL Albumin/Globulin Ratio (1.60-3.17) g/dL Assessment and Plan Assessment: Postop day 7: L2S1 laminectomy and decompression 1. Lumbar spondylosis 2. Multilevel vacuum disc phenomenon 3. Bilateral lower extremity radiculopathy 4. Bilateral lower extremity weakness 5. L3-S1 mild foraminal stenosis 6. Neurogenic claudication Plan: -Appreciate cloud consultant and team management. -Discharge prescriptions have been left in chart. -Activity: Ambulate QID, OOB all meals, up and about, limit lifting bending twisting to less than 5 lbs. Use walker or cane if needed for stability. -Daily PT/OT, increase ambulation strength and balance. -Brace when up and about, not needed in bed or chair -Pain control: Adequate at this time -Meds: reviewed -GI ppx: senna, Miralax -DVT PPX: Plavix -Hygiene: Shower today. Maintain dressing clean and dry. Meticulous cleaning after BMs away from the incision site -Encourage IS 10x/hr -Dispo: Patient is cleared from orthopedic standpoint for discharge. Anticipate discharge to [facility] when bed available. *I reviewed and discussed this case with my attending Dr. Hooker, whom has reviewed this chart and films and is in agreement with assessment and plan of care as outlined above. I have personally seen and examined the patient, performed the documentation and the assessment and plan as written. Number of minutes spent on the visit: 20m.
[2022-12-25] MEDS: POTASSIUM CHLORIDE ER 20 MEQ TAB.ER PO SCH (10:16)
[2022-12-25] MEDS: MONTELUKAST 10 MG TAB PO SCH (10:16)
[2022-12-25] MEDS: APIXABAN 5 MG TAB PO SCH ×2 (10:16→22:36)
[2022-12-25] MEDS: glipiZIDE 10 MG TAB PO SCH ×2 (10:16→22:37)
[2022-12-25] MEDS: TAMSULOSIN 0.4 MG CAP.ER.24H PO SCH (10:16)
[2022-12-25] MEDS: GABAPENTIN 300 MG CAP PO SCH ×3 (10:16→22:36)
[2022-12-25] MEDS: FUROSEMIDE 20 MG TAB PO SCH (10:16)
[2022-12-25] MEDS: methocarbamoL 750 MG TAB PO SCH ×3 (10:17→22:36)
[2022-12-25] MEDS: atenoloL 50 MG TAB PO SCH ×2 (10:17→22:36)
[2022-12-25] MEDS: CLOPIDOGREL 75 MG TAB PO SCH (10:17)
[2022-12-25] MEDS: ATORVASTATIN 40 MG TAB PO SCH (10:17)
[2022-12-25] MEDS: ASPIRIN 81 MG PO SCH (10:17)
[2022-12-25] MEDS: SENNOSIDES-DOCUSATE SODIUM 1 EACH TAB PO SCH (10:17)
[2022-12-25] MEDS: SODIUM CHLORIDE 0.9% 1,000 ML IV SCH (10:18)
[2022-12-25 11:27] LABS: Glucose,Whole Blood 170 mg/dL (70-110)
[2022-12-25] MEDS: HYDROcodone/APAP 5-325MG 1 EACH TAB PO PRN (13:13)
[2022-12-25 14:09] VITALS: BMI 25.1
--- NOTE | 2022-12-25 15:48 | P.PN ---
Subjective Progress Note Date: 12/25/22 Principal diagnosis: Bilateral feet wound Patient is 67-year male who has been electively admitted to the hospital on 12/18/2022 for chronic back pain and the patient is status post L2-S1 decompressive laminectomy since surgery the patient has been in the hospital patient also have a history of bilateral feet wound prompting this infection disease consultation On today's evaluation that is 12/25/2022, the patient remains to be afebrile, the patient pain to the lower back area is currently controlled, patient denies any worsening pain to bilateral feet wound area no chest pain shortness of cough no abdominal pain or diarrhea Objective - Vital Signs Vital signs: Vital Signs Temp 97.7 F 12/25/22 08:00 Pulse 65 12/25/22 08:00 Resp 17 12/25/22 08:00 BP 126/73 12/25/22 08:00 Pulse Ox 97 12/25/22 08:00 FiO2 Intake & Output 12/24/22 12/25/22 12/25/22 18:59 06:59 18:59 Intake Total 600 940 Output Total 550 1150 450 Balance 50 -210 -450 Weight 81.647 kg Intake: Intake, IV Titration 600 600 Amount Sodium Chloride 0.9% 1, 600 600 000 ml @ 50 mls/hr IV . Q20H [facility] Rx#:[id number] Oral 340 Output: Urine 550 1150 450 Other: Voiding Method Urinal # Voids 1 1 - Exam GENERAL DESCRIPTION: An elderly male lying in bed in no distress RESPIRATORY SYSTEM: Unlabored breathing , decreased breath sounds at bases HEART: S1 S2 regular rate and rhythm , ABDOMEN: Soft , no tenderness EXTREMITIES: Bilateral feet was are currently dressed - Labs CBC & Chem 7: 12/24/22 05:19 12/24/22 05:19 Labs: Abnormal Lab Results - Last 24 Hours (Table) 12/24/22 12/24/22 12/25/22 Range/Units 16:43 20:40 06:27 POC Glucose (mg/dL) 121 H 149 H 165 H (70-110) mg/dL 12/25/22 Range/Units 11:25 POC Glucose (mg/dL) 170 H (70-110) mg/dL Assessment and Plan (1) Non-pressure chronic ulcer of other part of left foot with fat layer exposed Current Visit: Yes Status: Acute Code(s): L97.522 - NON-PRS CHRONIC ULCER OTH PRT LEFT FOOT W FAT LAYER EXPOSED SNOMED Code(s): 69392789835923243 (2) Non-pressure chronic ulcer of other part of right foot limited to breakdown of skin Current Visit: Yes Status: Acute Code(s): L97.511 - NON-PRS CHRONIC ULCER OTH PRT R FOOT LIMITED TO BRKDWN SKIN SNOMED Code(s): 14640783212653618 (3) Non-pressure chronic ulcer of other part of right foot with fat layer e xposed Current Visit: No Status: Acute Code(s): L97.512 - NON-PRS CHRONIC ULCER OTH PRT RIGHT FOOT W FAT LAYER EXPOSED SNOMED Code(s): 56536331846885065 Plan: 1patient with multiple ulceration to the right foot including the dorsum of the right foot as well as first and second toe with some slough tissue with no surrounding redness we will recommend local wound care to continue with the Anette 2-patient also with superficial ulceration to the lesser toes of his left foot with no significant surrounding redness or any foul-smelling drainage continue local wound care with Anette, discuss with the patient rn 3- patient is afebrile and no evidence of any cellulitis involving bilateral lower Feet wounds, continue local wound care as ordered and continue supportive care Time with Patient: Less than 30
[2022-12-25 16:51] LABS: Glucose,Whole Blood 121 mg/dL (70-110)
[2022-12-25 21:36] LABS: Glucose,Whole Blood 141 mg/dL (70-110)
[2022-12-26] MEDS: HYDROcodone/APAP 10-325MG 1 EACH TAB PO SCH ×3 (00:14→09:02)
[2022-12-26 02:08] VITALS: RESP 16
[2022-12-26] MEDS: HYDROmorphone 1 MG/ML 1 ML SYRINGE IVP PRN (02:50)
[2022-12-26] MEDS: SODIUM CHLORIDE 0.9% 1,000 ML IV SCH (04:20)
[2022-12-26 06:10] LABS: Glucose,Whole Blood 167 mg/dL (70-110)
--- NOTE | 2022-12-26 07:43 | P.PN ---
Subjective Progress Note Date: 12/26/22 Principal diagnosis: 1. Lumbar spondylosis 2. Multilevel vacuum disc phenomenon 3. Bilateral lower extremity radiculopathy 4. Bilateral lower extremity weakness 5. L3-S1 mild foraminal stenosis 6. Neurogenic claudication Patient seen and examined at bedside. Patient was sitting at bedside. He is looking forward to going to to rehab today. Surgical dressing has moderate amt of serosanguineous drainage. Surgical dressing needs to be changed as needed to keep incision clean and dry. Patient reports increased sensation and muscle strength in bilateral lower extremities since procedure. Patient has been afebrile, denies nausea/vomiting, or chest pain. Objective - Vital Signs Vital signs: Vital Signs Temp 97.9 F 12/26/22 00:37 Pulse 64 12/26/22 00:37 Resp 16 12/26/22 00:37 BP 144/69 12/26/22 00:37 Pulse Ox 96 12/26/22 00:37 FiO2 Intake & Output 12/25/22 12/26/22 12/26/22 18:59 06:59 18:59 Intake Total 480 Output Total 1650 850 Balance -1650 -370 Weight 81.647 kg Intake: Oral 480 Output: Urine 1650 850 Other: # Voids 1 - Exam Physical Examination General: The patient is awake and alert, in no acute distress Skin: Skin is warm and dry with no obvious rashes or lesions. Surgical incision to the lumbar region, incision is well approximated with nidia intact. Eye: Pupils are equal, round and reactive to light, extra-ocular movements are intact; there is normal conjunctiva bilaterally. Neck: The neck is supple, there is no tenderness and ROM intact. Cardiovascular: There is a regular rate and rhythm. No murmur, rub or gallop is appreciated. Respiratory: Lungs are clear to auscultation, respirations are non-labored, breath sounds are equal. Gastrointestinal: Soft, non-distended, non-tender abdomen. Back: There is no tenderness to palpation in the midline, paralumbar, pa rathoracic or buttocks region. There is no obvious deformity . Musculoskeletal: ROM limited secondary to pain and stiffness from surgical procedure. Muscle strength in all major muscle groups of bilateral upper extremities 5/5, bilateral lower extremities 4/5. Neurological: CN 2-12 intact. There are no obvious motor or sensory deficits. Movement and coordination equal and intact. Sensory exam to light touch intact C5-T1 and intact from L2-S1. Reflexes 2/4 in bilateral upper and lower extremiti es. Negative Hoffmans, babinski, and clonus signs. Psychiatric: Cooperative, appropriate mood & affect, normal judgment. - Labs CBC & Chem 7: 12/24/22 05:19 12/24/22 05:19 Labs: Abnormal Lab Results - Last 24 Hours (Table) 12/25/22 12/25/22 12/25/22 Range/Units 11:25 16:50 21:35 POC Glucose (mg/dL) 170 H 121 H 141 H (70-110) mg/dL 12/26/22 Range/Units 05:52 POC Glucose (mg/dL) 167 H (70-110) mg/dL Assessment and Plan Assessment: Postop day 8: L2S1 laminectomy and decompression 1. Lumbar spondylosis 2. Multilevel vacuum disc phenomenon 3. Bilateral lower extremity radiculopathy 4. Bilateral lower extremity weakness 5. L3-S1 mild foraminal stenosis 6. Neurogenic claudication Plan: -Appreciate engineering consultant and team management. -Discharge prescriptions have been left in chart. -Activity: Ambulate QID, OOB all meals, up and about, limit lifting bending twisting to less than 5 lbs. Use walker or cane if needed for stability. -Daily PT/OT, increase ambulation strength and balance. -Brace when up and about, not needed in bed or chair -Pain control: Adequate at this time -Meds: reviewed -GI ppx: senna, Miralax -DVT PPX: Plavix -Hygiene: Shower today. Maintain dressing clean and dry. Meticulous cleaning after BMs away from the incision site -Encourage IS 10x/hr -Dispo: Patient is cleared from orthopedic standpoint for discharge. Anticipate discharge to [facility] via [facility] this morning. *I reviewed and discussed this case with my attending Dr. Hooker, whom has reviewed this chart and films and is in agreement with assessment and plan of care as outlined above. I have personally seen and examined the patient, performed the documentation and the assessment and plan as written. Number of minutes spent on the visit: 20m.
--- NOTE | 2022-12-26 07:45 | P.DS ---
Providers Date of admission: 12/18/22 15:15 Expected date of discharge: 12/26/22 Attending physician: Martinez Hooker DO Consults: 12/18/22 15:07 Consult Physician Routine Consulting Provider: Jeremy Atkinson Consult Reason/Comments: Medical Management Do you want consulting provider notified?: Yes 12/22/22 07:47 Consult Physician Routine Consulting Provider: Alexi Pinon Consult Reason/Comments: Assess for IPR, BLE weakness, recent lumbar surgery Do you want consulting provider notified?: Yes 12/23/22 00:16 Consult Physician Routine Consulting Provider: Jeremias Matute Consult Reason/Comments: foot ulcers Do you want consulting provider notified?: Yes Primary care physician: [facility] Course: Hospital Course: The patient was evaluated preoperatively and found to have the diagnosis of lumbar stenosis. They underwent appropriate preoperative care and were willing to undergo the intended procedure. They underwent a successful L3-S1 laminectomy with decompression were recovered appropriately and sent to the floor. While on the floor they worked with physical therapy, occupational therapy and nursing to enhance their recovery experience. Their pain was well controlled through their stay and they were started on appropriate medications, DVT ppx modalities, activity and dietary needs. Daily labs were monitored closely, and transfusions were only used when necessary. Medicine as well as other consulting services have made their input and have helped with our team approach and multidisciplinary care. PT milestones have been met and passed and they have made the recommendation of subacute rehab for this patient and treating providers agree with this care path. The patient will be discharged home with appropriate medications, instructions and follow-up information and in stable condition. Patient Condition at Discharge: Good Plan - Discharge Summary Discharge Rx Participant: No New Discharge Prescriptions: New methocarbamoL [Robaxin-750] 750 mg PO TID #90 tab Sennosides/Docusate Sodium [Senna Plus 8.6-50 mg Tablet] 1 each PO DAILY PRN #20 tablet PRN Reason: Constipation cefaDROXiL [Duricef] 500 mg PO Q12HR 5 Days #10 cap Gabapentin 600 mg PO TID #90 tab HYDROcodone/APAP 10-325MG [[place] 10-325] 1 tab PO Q4-6H PRN #42 tab PRN Reason: Pain No Action Montelukast [Singulair] 10 mg PO DAILY Repaglinide [Prandin] 1 mg PO TID glyBURIDE [Diabeta] 5 mg PO BID Aspirin [Adult Low Dose Aspirin EC] 81 mg PO DAILY rOPINIRole HCL [Requip] 1 mg PO TID Potassium Chloride [Klor-Con M20] 20 meq PO DAILY Gabapentin 600 mg PO TID Furosemide [Lasix] 20 mg PO DAILY HYDROcodone/APAP 5-325MG [[place] 5-325] 1 tab PO BID PRN PRN Reason: Pain Atorvastatin [Lipitor] 40 mg PO DAILY methocarbamoL [Robaxin] 500 mg PO BID PRN 30 Days #60 tab PRN Reason: Muscle Spasm atenoloL [Tenormin] 50 mg PO BID Acetaminophen Tab [Tylenol Tab] 500 mg PO Q6H PRN #30 tablet PRN Reason: Pain Apixaban [Eliquis] 5 mg PO BID Clopidogrel [Plavix] 75 mg PO DAILY Discharge Medication List Montelukast [Singulair] 10 mg PO DAILY 09/30/19 [History] Repaglinide [Prandin] 1 mg PO TID 09/30/19 [History] Aspirin [Adult Low Dose Aspirin EC] 81 mg PO DAILY 04/15/22 [History] Atorvastatin [Lipitor] 40 mg PO DAILY 04/15/22 [History] glyBURIDE [Diabeta] 5 mg PO BID 04/15/22 [History] methocarbamoL [Robaxin] 500 mg PO BID PRN 30 Days #60 tab 04/30/22 [Rx] rOPINIRole HCL [Requip] 1 mg PO TID 06/02/22 [History] Gabapentin 600 mg PO TID 06/17/22 [History] Potassium Chloride [Klor-Con M20] 20 meq PO DAILY 06/17/22 [History] atenoloL [Tenormin] 50 mg PO BID 06/17/22 [History] Furosemide [Lasix] 20 mg PO DAILY 09/29/22 [History] Acetaminophen Tab [Tylenol Tab] 500 mg PO Q6H PRN #30 tablet 10/04/22 [Rx] Apixaban [Eliquis] 5 mg PO BID 12/05/22 [History] Clopidogrel [Plavix] 75 mg PO DAILY 12/05/22 [History] HYDROcodone/APAP 5-325MG [[place] 5-325] 1 tab PO BID PRN 12/17/22 [History] Gabapentin 600 mg PO TID #90 tab 12/25/22 [Rx] HYDROcodone/APAP 10-325MG [[place] 10-325] 1 tab PO Q4-6H PRN #42 tab 12/25/22 [Rx] Sennosides/Docusate Sodium [Senna Plus 8.6-50 mg Tablet] 1 each PO DAILY PRN #20 tablet 12/25/22 [Rx] cefaDROXiL [Duricef] 500 mg PO Q12HR 5 Days #10 cap 12/25/22 [Rx] methocarbamoL [Robaxin-750] 750 mg PO TID #90 tab 12/25/22 [Rx] Follow up Appointment(s)/Referral(s): Jeremy Atkinson MD [Primary Care Provider] - 1 Week Martinez Hooker DO [Doctor of Osteopathic Medicine] - 1 Week Activity/Diet/Wound Care/Special Instructions: Spine Discharge and Recovery Instructions Date of Surgery: 12/18/2022 Diagnosis: Lumbar stenosis Procedure: L3-S1 laminectomy with decompression Medications: See medication list All medication refills should be obtained through your primary care doctor or your clinic spine surgeon. Please discuss prescription refills at your follow up appointment. Do not call the hospital for medication refills. Dressing: Leave your dressing in place for a total of 5 days post operatively. Then you may remove your dressing and leave open to air. Keep the area clean and if not able to keep area clean, then cover with sterile gauze and tape. Showering: You may shower 3 days after your procedure allowing soap and water to run over incision. Do not scrub. Do not soak. Blot dry. Follow up: Please confirm a follow up appointment with your surgeon 3 weeks post operatively. Please make an appointment to follow up with your PCP in 1-2 weeks after surgery for evaluation 3 phase, 3-week plan POST OP WEEKS 1-3 1. Lifting/carrying/pushing/pulling limited to less than 5 pounds. 2. Do not sit for longer than 15 minutes at one time. Get up and walk around. Prolonged sitting is NOT advised. If you lay down, see if you can tolerate laying down on you front (belly side) 3. Walk for periods of 15 minutes = 1 mile but no longer; do it multiple times times each day. 4. Ice your low back after activity. POST OP WEEKS 3-6 1. Lifting limited to less than 20 pounds. 2. Do not sit for longer than 30 minutes at a time. Frequently change positions. Use a sit-to stand workstation or take frequent breaks from sitting if you have returned to work. 3. Walk for 30 minutes each day. If possible, do these three or more times a day POST OP WEEKS 6+ At your 6-week appointment we will give you a physical therapy referral to focus on a core stabilization and strengthening program. You should also work on leg & buttock strengthening, hamstring & quadriceps stretching, and continue a low impact aerobic activity program such as swimming, walking, or riding a stationary bicycle. During the initial 6 weeks after your surgery, you are at the highest risk of re-injuring your spine. You should generally avoid BLTs (bending, lifting and twisting combination motions) and follow the above guidelines to reduce the chance of reinjury. You can anticipate post op appointments in our office at approximately 3 weeks and 6 weeks after your surgery. INCISION CARE: If your incision is not draining you do NOT need to cover it with a dressing. Keep your incision clean, dry and intact. In most cases, we apply skin glue, nidia or sutures to the incision at the time of surgery. This will be like a crust or have the appearance of a scab and will fall off in time on its own. The stitches or nidia need to be removed at 3 weeks post op appointment. You may begin to shower 3 days after surgery (this allows the glue to lisa well). However, please avoid scrubbing the incision site or peeling off any of the skin glue. This will ensure optimal healing of your incision. Also, during this time avoid soaking the incision area in water - this includes swimming pools, hot tubs or baths. No ointments, lotions or oils on the incision until your surgeon allows. Leave nidia, sutures or glue in place. Neurological dysfunction that comes on suddenly can also be a sign of a stroke. Below some common symptoms of a stroke are listed: B - balance difficulty such as sudden onset walking or leaning to one side - NEW E - eye problem such as sudden double vision or trouble seeing on one side - NEW F - Facial weakness or numbness on one side - NEW A - Arm or leg weakness or numbness on one side - NEW S - Slurred speech or difficulty with word finding - NEW T - Time is BRAIN! Call 911 as soon as you recognize these symptoms Diet: Consume a regular diet rich in vegetables and lean protein such as chicken or fish. You should consume in a ratio of approximately 20% fats|40% carbohydrates|40%protein. Vegetables, sweet potatoes, brown rice or quinoa are examples of good carbohydrates. Chips, white bread, cookies and sweets/sugar are examples of bad carbohydrates. Limit your bad carbs, go wild with good carbs. 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 (1) Get Active. Physical activity can help people lose weight, control high blood pressure and cholesterol, feel emotionally better, and sleep better. (2) Control Cholesterol. Avoid a diet high in saturated fat, trans fat, & cholesterol. Limit whole milk & cream, ice cream, butter, egg yolks, processed meats (like sausage and hot dogs), and fatty meats. Choose healthy foods that are low in saturated fat, trans fat and cholesterol which include: Fruits and vegetables, fiber rich grain products (like whole grain pasta and brown rice), lean meat such as chicken, fish, nuts, seeds, and legumes. (3) Eat Better. Eat small portions. Shop at the grocery with a list and do not stray from it. Tips for a healthy diet include: Limit sodium intake to less than 1500mg daily, avoid prepackaged, processed, and fast foods, choose a diet rich in fruits, vegetables, and whole grain, high fiber foods, and limit saturated & cholesterol in your diet. (4) Manage Blood Pressure. If you have high blood pressure, you should have a cuff at home so that you can check your blood pressure regularly. Be sure you have a good cuff. An arm one is generally better than a wrist one. Bring the cuff to a doctor's appointment to validate that the measurements that your cuff are taking are accurate. Take your blood pressure twice daily when you are sitting down and relaxing. Record the numbers in a log and bring this log with you to your doctors' appointments. (5) Lose Weight if your BMI is above 25. A healthy BMI is between 19-25. To calculate Your BMI, you may use a Standard BMI Calculator on the NIH BMI website: <www.nhlbi.nih.gov/guidelines/obesity/BMI/bmicalc.htm>. Weigh oneself daily. If you are overweight, set a goal to lose weight. A pound a week loss if needed is a good target. (6) Reduce Blood Sugar. Limit foods and liquids with "added sugars." (Added sugars include sucrose, fructose, glucose, maltose, dextrose, high fructose corn syrup, corn syrup, concentrated fruit juice and honey). (7) Stop Smoking. If you smoke, quitting smoking is one of the best things that you can do for your health. Smoking increases your risk of heart attack, stroke, and peripheral vascular disease, which is a build-up of plaque in your arteries. Please discard all the cigarettes and lighters in your house. Have a plan for what you will do when you have the urge to smoke. Direct and second- hand smoke shortens your life as well as the lives of your family, friends and others around you. For your health and the health of those around you, please consider quitting! Proper Bending Body Mechanics: Maintain a wide stance with one foot slightly in front of the other. Keep your back straight. Bend utilizing the strength in your hips and knees. Do not bend at the waist. Maintain the lifted object at your waist-level close to your body. Avoid lifting weight that causes immediately pain or pain anywhere in the body afterwards. Smoking/Nicotine If there was ever one thing that you could do to increase your overall health, decrease your risk of cardiovascular problems by about 39% the second you make the choice, it is to STOP SMOKING. Your body's most instant gratification is the second you stop smoking. We have all heard the studies, read the articles but it is true, smoking is extremely bad for your overall health, and moreover it is detrimental to your bone health. Nicotine, IN ANY FORM, kills bone cells, prevents your body from healing fractures, and significantly prolongs healing after surgery. In spine surgery specifically, it increases your risk of not healing your bones to create a fusion and increases your risk of having a revision surgery due to this up to 60%. I know it is hard. I know it feels impossible. But there are ways. Take control of your life. We are here to help you through it. And when you are ready, ask us and we can direct you to help if you desire. Use the START Plan to Quit Smoking (please visit the Helpguide.org website listed below for more information): S = Set a quit date. Choose a date within the next 2 weeks, so you have enough time to prepare without losing your motivation to quit. If you mainly smoke at work, quit on the weekend, so you have a few days to adjust to the change. T = Tell family, friends, and co-workers that you plan to quit. Let your friends and family in on your plan to quit smoking and tell them you need their support and encouragement to stop. Look for a quit michael who wants to stop smoking as well. You can help each other get through the rough times. A = Anticipate and plan for the challenges you'll face while quitting. Most people who begin smoking again do so within the first 3 months. You can help yourself make it through by preparing ahead for common challenges, such as nicotine withdrawal and cigarette cravings. R = Remove cigarettes and other tobacco products from your home, car, and work. Throw away all your cigarettes (no emergency pack!), lighters, ashtrays, and matches. Wash your clothes and freshen up anything that smells like smoke. Shampoo your car, clean your drapes and carpet, and steam your furniture. T = Talk to your doctor about getting help to quit. Your doctor can prescribe medication to help with withdrawal and suggest other alternatives. If you can't see a doctor, you can get many products over the counter at your local pharmacy or grocery store, including the nicotine patch, nicotine lozenges, and nicotine gum. Resources for Quitting Smoking: <https://www.[place].gov/documents/[facility]/Quit_Tobacco_Resources_for_patients_313 480_7.pdf> Supplementation: Take recommended dosages of Vitamin D and Calcium to help fortify your bones and help them to heal. See your health maintenance packet for dosages and recommended levels. DVT/VTE prophylaxis: You will be given compression stockings from the hospital. Wear these daily for the first two weeks after surgery. You may take them off at night. You may be prescribed a medication to help thin your blood. Take this as directed. If you are not prescribed this medication, early and frequent ambulation has been shown to be the best prophylaxis to deep vein thrombosis and sequelae related to this event. Discharge Disposition: TRANSFER TO SNF/ECF
[2022-12-26 08:25] VITALS: TEMP 97.6
[2022-12-26 08:58] VITALS: BP 123/61; PULSE 81
[2022-12-26] MEDS: CLOPIDOGREL 75 MG TAB PO SCH (09:01)
[2022-12-26] MEDS: ASPIRIN 81 MG PO SCH (09:01)
[2022-12-26] MEDS: FUROSEMIDE 20 MG TAB PO SCH (09:01)
[2022-12-26] MEDS: APIXABAN 5 MG TAB PO SCH (09:01)
[2022-12-26] MEDS: glipiZIDE 10 MG TAB PO SCH (09:01)
[2022-12-26] MEDS: GABAPENTIN 300 MG CAP PO SCH (09:02)
[2022-12-26] MEDS: ATORVASTATIN 40 MG TAB PO SCH (09:02)
[2022-12-26] MEDS: SENNOSIDES-DOCUSATE SODIUM 1 EACH TAB PO SCH (09:02)
[2022-12-26] MEDS: MONTELUKAST 10 MG TAB PO SCH (09:02)
[2022-12-26] MEDS: TAMSULOSIN 0.4 MG CAP.ER.24H PO SCH (09:02)
[2022-12-26] MEDS: atenoloL 50 MG TAB PO SCH (09:02)
[2022-12-26] MEDS: POTASSIUM CHLORIDE ER 20 MEQ TAB.ER PO SCH (09:02)
[2022-12-26] MEDS: methocarbamoL 750 MG TAB PO SCH (09:02)
[2022-12-26] MEDS: IPRATROPIUM-ALBUTEROL 3 ML NEB INHALATION SCH (09:11)
[2022-12-26] MEDS: BUDESONIDE 0.5 MG/2 ML NEBU INHALATION SCH (09:11)
== END 2022-12-26 09:45 | DRG 519 ==
LOC: OR 09:57 → 4SSUR 14:55 → OR 15:15 → 4SSUR 15:15 → OBSVTOIN 15:15
PROVIDERS: ADMIT Orthopaedic Surgery; ATTEND Orthopaedic Surgery
PROC: 01NR0ZZ Release Sacral Nerve, Open Approach (ICD-10-PCS; 2022-12-18)
PROC: 00UT07Z Supplement Spinal Meninges with Autologous Tissue Substitute, Open Approach (ICD-10-PCS; 2022-12-18)
PROC: 01NB0ZZ Release Lumbar Nerve, Open Approach (ICD-10-PCS; principal; 2022-12-18 11:50)
DX: M47.26 Other spondylosis with radiculopathy, lumbar region (principal); C34.90 Malignant neoplasm of unspecified part of unspecified bronchus or lung; C79.9 Secondary malignant neoplasm of unspecified site; D62 Acute posthemorrhagic anemia; I50.32 Chronic diastolic (congestive) heart failure; L97.522 Non-pressure chronic ulcer of other part of left foot with fat layer exposed; L97.512 Non-pressure chronic ulcer of other part of right foot with fat layer exposed; E11.621 Type 2 diabetes mellitus with foot ulcer; I11.0 Hypertensive heart disease with heart failure; G96.198 Other disorders of meninges, not elsewhere classified; J44.9 Chronic obstructive pulmonary disease, unspecified; G25.81 Restless legs syndrome; E86.0 Dehydration; M47.27 Other spondylosis with radiculopathy, lumbosacral region; M48.07 Spinal stenosis, lumbosacral region; M48.062 Spinal stenosis, lumbar region with neurogenic claudication; R29.6 Repeated falls; G47.9 Sleep disorder, unspecified; M25.78 Osteophyte, vertebrae; M51.36 Other intervertebral disc degeneration, lumbar region; R53.81 Other malaise; G89.29 Other chronic pain; R59.0 Localized enlarged lymph nodes; I48.91 Unspecified atrial fibrillation; N40.1 Benign prostatic hyperplasia with lower urinary tract symptoms; R33.8 Other retention of urine; M51.87 Other intervertebral disc disorders, lumbosacral region; E88.2 Lipomatosis, not elsewhere classified; Z28.311 Partially vaccinated for COVID-19; Z87.891 Personal history of nicotine dependence; Z86.73 Personal history of transient ischemic attack (TIA), and cerebral infarction without residual deficits; Z86.16 Personal history of COVID-19; Z79.84 Long term (current) use of oral hypoglycemic drugs; Z79.01 Long term (current) use of anticoagulants; Z79.02 Long term (current) use of antithrombotics/antiplatelets; Z91.81 History of falling; Z79.82 Long term (current) use of aspirin; Z79.899 Other long term (current) drug therapy; Z80.1 Family history of malignant neoplasm of trachea, bronchus and lung
CPT/HCPCS: 72100; 80048; 80053; 85025; 85610

== ENCOUNTER → 2023-03-25 | Outpatient (CLI) | payer MEDICARE ==
--- NOTE | 2023-03-25 23:05 | CT ---
EXAMINATION TYPE: CT lumbar spine wo con DATE OF EXAM: 03/25/2023 COMPARISON: 10/02/2022 HISTORY: 67-year-old male M96.1, M54.9, back pain. TECHNIQUE: Contiguous axial scanning of the lumbar spine without IV contrast. Coronal and sagittal re constructions performed. CT DLP: 1150.4 mGycm Automated exposure control for dose reduction was used. FINDINGS: There is a transitional lumbosacral segment is noted as a lumbarized S1. Vertebral body heights are preserved. Trace degenerative grade 1 retrolisthesis L2-L3, L3-L4, and L4-L5 are similar. There have been interval laminectomies from L2 through S1 levels with bone graft material placed bakari g the posterior elements for purposes of lateral osseous fusion. There has been incomplete consolidat ion of the bone graft material at this time. Residual posterior disc bulge and some ligamentum flavum thickening at L5-S1 but no significant spina l canal stenosis identified. Moderate degenerative disc disease throughout with desiccated, mildly narrowed, and minimally bulging discs. Hypertrophic facet arthropathy especially mid to lower lumbar spine. On the right, changes result in moderate to severe neuroforaminal stenosis at L4-L5 and L5-S1 and mod erate at L3-L4. On the left, changes result in moderate to severe neuroforaminal stenosis at L3-L4, L4-L5, and L5-S1, mild at L2-L3. There is a 1 cm pulmonary nodule subpleural posterior left base, not significantly changed. Aneurysmal aorta at the thoracoabdominal junction up to 3.3 cm. Bilateral renal cysts measuring up to 2.8 cm on the left and 1.8 cm on the right. IMPRESSION: 1. TRANSITIONAL LUMBOSACRAL SEGMENT (LUMBARIZED S1 ) REDEMONSTRATED. INTERVAL POSTOPERATIVE CHANGES O F WIDE LAMINECTOMIES FROM L2-S1 LEVELS WITH A PLACEMENT OF BONE GRAFT MATERIAL POSTERIORLY. THERE HAS BEEN COMPLETE CONSOLIDATION OF THE BONE GRAFT MATERIAL AT THIS TIME. 2. REDEMONSTRATED MODERATE DEGENERATIVE DISC DISEASE THROUGHOUT WITH FACET ARTHROPATHY. DEGENERATIVE TRACE GRADE 1 RETROLISTHESIS L2-L3, L3-L4, AND L4-L5. 3. RESIDUAL MILD POSTERIOR DISC BULGE AND LIGAMENTUM FLAVUM THICKENING AT L5-S1 REMAINS BUT DOES NOT CONTRIBUTE TO ANY SIGNIFICANT SPINAL CANAL STENOSIS HERE OR AT ANY OTHER LEVEL. 4. VARIABLE NEUROFORAMINAL STENOSES OUTLINED ABOVE, MODERATE TO SEVERE ON BOTH SIDES AT L4-L5 AND L5-S1 AND ALSO ON THE LEFT AT L3-L4. 5. A 1 CM POSTERIOR LEFT BASILAR PULMONARY NODULE REMAINS UNCHANGED FOR 6 MONTHS. RECOMMEND ADDITIONA L ONE-YEAR SURVEILLANCE FOLLOW-UP TO REASSESS.
== END | disposition home or self-care (01) ==
LOC: RADCTMAIN 13:26
PROVIDERS: ATTEND Orthopaedic Surgery
DX: M51.36 Other intervertebral disc degeneration, lumbar region (principal); M48.061 Spinal stenosis, lumbar region without neurogenic claudication; M47.816 Spondylosis without myelopathy or radiculopathy, lumbar region; M43.16 Spondylolisthesis, lumbar region; M96.1 Postlaminectomy syndrome, not elsewhere classified; R91.1 Solitary pulmonary nodule
CPT/HCPCS: 72131

== ENCOUNTER → 2023-08-13 | Outpatient (CLI) | payer MEDICARE ==
--- NOTE | 2023-08-13 17:44 | CT ---
EXAMINATION TYPE: CT cervical spine wo con DATE OF EXAM: 08/13/2023 HISTORY: chronic neck pain, vision changes TECHNIQUE: CT scan of the cervical spine is obtained without contrast, axial images are obtained, sag ittal and coronal reformatted images are also reviewed. Automated Exposure Control for Dose Reduction was Utilized. CT DLP: 513.8 mGycm. COMPARISON: 06/17/2022 FINDINGS / IMPRESSION: CERVICAL SPINE There are severe cervical spondylosis changes at all cervical spine levels from C3-4 through C7-T1 wi th redemonstrated reversal of the normal lordotic curvature, apex at the C4 level. There is no acute fracture. There is redemonstration of anterior listhesis of C7 upon T1, which appears slightly greater than [place] t seen on the left 06/17/2022. UPPER CHEST Redemonstrated prominent right paratracheal adenopathy which is partially visualized on this examinat ion.4 Redemonstrated 1 cm right upper lobe pulmonary nodule.
== END | disposition home or self-care (01) ==
LOC: RADCTMAIN 16:49
PROVIDERS: ATTEND Family Medicine
DX: M79.2 Neuralgia and neuritis, unspecified (principal); G89.29 Other chronic pain; R91.1 Solitary pulmonary nodule; R59.0 Localized enlarged lymph nodes
CPT/HCPCS: 72125

== ENCOUNTER 2023-09-24 08:13 | Outpatient (CLI) | payer MEDICARE ==
[2023-09-24] MEDS ORDERED: diazePAM 5 MG TAB PO STA (08:50)
[2023-09-24 09:42] VITALS: TEMP 98.4
[2023-09-24] MEDS ORDERED: HYDROcodone/APAP 5-325MG 1 EACH TAB PO PRN (10:00)
--- NOTE | 2023-09-24 11:04 | CT ---
EXAMINATION TYPE: CT cervical spine w con DATE OF EXAM: 09/24/2023 COMPARISON: Prior CT cervical spine August 13, 2023 HISTORY: neck pain CT DLP: 600 mGycm. Automated Exposure Control for Dose Reduction was Utilized. TECHNIQUE: CT scan of the cervical spine is obtained after myelogram. FINDINGS: Successful myelogram. Scoliotic curvature in the cervical spine is redemonstrated similar t o prior. Loss of normal cervical curvature redemonstrated. Prevertebral soft tissue appears within no rmal limits. The C1-C2 articulation is within normal limits on the coronal images. Vertebral body he ights are maintained. There is severe grade 1 anterolisthesis C7 on T1 redemonstrated. Moderate to se lexus multilevel disc space narrowing C3-C4 through C7-T1 levels is redemonstrated. Review of axial images at C2-C3 level shows some uncovertebral facet degenerative change causing mild right-sided neural foraminal narrowing. Axial images at C3-C4 level show posterior spurring effacing anterior thecal sac . Axial images at C4-C5 level show spondylolisthesis with uncovertebral facet degenerative change causi ng mild bilateral neural foraminal narrowing. Axial images at C5-C6 level shows spondylosis with some posterior bony projections left paracentral r egion, there is [id number] left greater than right bilateral neural foraminal narrowing. Axial images at C6-C7 level appear within normal limits. Axial images at C7-T1 levels with spondylolisthesis. Bilateral neural foramina are patent. IMPRESSION: Multilevel spondylolisthesis and degenerative change of the cervical spine is redemonstra zenobia. No large disc herniations identified on myelogram study.
--- NOTE | 2023-09-24 11:11 | CT ---
EXAMINATION TYPE: CT lumbar spine w con DATE OF EXAM: 09/24/2023 COMPARISON: CT lumbar spine March 25, 2023 HISTORY: back pain CT DLP: 1179.4 mGycm Automated exposure control for dose reduction was used. CONTRAST: CT scan of the lumbar is performed after myelogram. Myelogram report is dictated separately. Enhanced CT of the lumbar spine was performed. Bone and soft tissue window settings are submitted as well as coronal and sagittal reconstructions. There is accessory right L1 rib. Lumbar spine shows stable and satisfactory alignment. Successful opa cification of the spinal canal is seen. There is however inhomogeneous contrast opacification making evaluation suboptimal Conus medullaris terminates at mid L1 level. Vertebral body heights are maintai ariana. There is mild to moderate disc space narrowing greatest posteriorly L4-L5 level. Moderate multil evel anterior and lateral spurring is seen. Multilevel bilateral laminectomy defects and spinous proc ess resection in the mid to lower lumbar spine is seen. Axial images show no large disc herniations. Axial images at L2-L3 level shows mild broad-based disc bulge and mild to moderate facet arthropathy bilaterally. There is some effacement of the posterolate ral thecal sac. Axial images at L3-L4 level show mild to moderate broad-based disc protrusion mildly effacing intrath ecal sac and mild to moderate facet arthropathy bilaterally. Axial images at L4-L5 level show moderate to advanced facet arthropathy bilaterally. Axial images at L5-S1 level shows moderate to advanced facet arthropathy bilaterally. Paraspinal muscle bulk is preserved. Mild calcified plaque of the aorta extends into the branch vesse l. IMPRESSION: Multilevel posterior surgical changes are redemonstrated. Multilevel degenerative changes are seen as detailed above. No large focal disc herniation is identified.
--- NOTE | 2023-09-24 12:38 | FL ---
EXAMINATION TYPE: FL myelogram 2 or more regions DATE OF EXAM: 09/24/2023 COMPARISON: NONE HISTORY: Back and neck pain Informed consent was obtained and all the patient's questions were answered. The L3-L4 level was loc alized under fluoroscopy. Standard sterile technique was utilized as well as appropriate local anest hesia 1% Lidocaine and sodium bicarbonate. Spinal needle was introduced into the thecal sac under fl uoroscopic guidance and 7 mL's of Omni 300 was injected. The patient tolerated the procedure well an d left the department in stable condition. CT myelography is to follow. 1 minute 20 seconds of fluo roscopy provided. No DAP provided. IMPRESSION: Successful myelography lumbar Cervical spine.
[2023-09-24 16:13] VITALS: RESP 16
[2023-09-24 16:35] VITALS: BP 118/58; PULSE 71
== END 2023-09-24 13:48 | disposition home or self-care (01) ==
LOC: RADPROMAIN 08:13
PROVIDERS: ATTEND Neurological Surgery
DX: M48.062 Spinal stenosis, lumbar region with neurogenic claudication (principal); M48.02 Spinal stenosis, cervical region; M43.12 Spondylolisthesis, cervical region; M47.812 Spondylosis without myelopathy or radiculopathy, cervical region; M47.816 Spondylosis without myelopathy or radiculopathy, lumbar region
CPT/HCPCS: 62305; 72126; 72132; Q9967

== ENCOUNTER → 2023-12-15 | Outpatient (CLI) | payer MEDICARE ==
[2023-12-15 11:16] LABS: Appearance,Urine Cloudy (Clear); Bacteria,Urine Rare /hpf; Bilirubin,Urine Negative (Negative); Blood,Urine Trace (Negative); Color,Urine Light Yellow; Glucose,Urine (UA) Negative (Negative); Ketones,Urine Negative (Negative); Leukocyte Esterase,Urine Large (Negative); Mucus,Urine Rare /hpf; Nitrite,Urine Positive (Negative); Protein,Urine 1+ (Negative); RBC,Urine 3 /hpf (0-5); Specific Gravity,Urine 1.019 (1.001-1.035); Squamous Epithelial Cell,Urine <1 /hpf (0-4); Urobilinogen,Urine <2.0 mg/dL (<2.0); WBC,Urine 102 /hpf (0-5)
[2023-12-15 16:15] LABS: ALT 7 U/L (10-49); AST 7 U/L (14-35); Albumin 3.5 g/dL (3.8-4.9); Albumin/Globulin Ratio 1.13 Ratio (1.60-3.17); Alkaline Phosphatase 131 U/L (41-126); BUN/Creat Ratio 32.88 Ratio (12.00-20.00); Blood Urea Nitrogen 26.3 mg/dL (9.0-27.0); Calcium 8.9 mg/dL (8.7-10.3); Carbon Dioxide 25.3 mmol/L (21.6-31.8); Chloride 104 mmol/L (96-109); Globulin 3.1 g/dL (1.6-3.3); Glucose 122 mg/dL (70-110); Potassium 4.8 mmol/L (3.5-5.5); Sodium 141 mmol/L (135-145); Total Bilirubin <0.2 mg/dL (0.3-1.2); Total Protein 6.6 g/dL (6.2-8.2)
[2023-12-15 16:25] LABS: HCT 31.2 % (39.6-50.0); HGB 8.8 g/dL (13.0-17.0); MCH 20.5 pg (27.0-32.0); MCHC 28.2 g/dL (32.0-37.0); MCV 72.6 FL (80.0-97.0); Mean Platelet Volume 10.9 FL (9.5-12.2); NRBC Per 100 WBC 0 X 10*3/uL (0.00-0.01); Platelet Count 359 X 10*3/uL (140-440); RDW 19.1 % (11.5-14.5); WBC 7.95 X 10*3/uL (4.50-10.00)
[2023-12-15 16:56] LABS: INR 1.23 sec (0.93-1.11); Prothrombin Time 13.1 sec (9.9-11.9)
--- NOTE | 2023-12-16 07:26 | XR ---
EXAMINATION TYPE: XR chest 2V DATE OF EXAM: 12/15/2023 COMPARISON: 06/17/2022 HISTORY: Shortness of breath TECHNIQUE: Frontal and lateral views of the chest are obtained. FINDINGS: Scattered senescent parenchymal changes noted. Hyperinflation compatible with COPD. Pulmonary venous congestion with basilar infiltrates and small effusions as well as cardiomegaly susp icious for congestive failure. Infiltrates of other etiology not excluded. Exam is limited by the deg ree of inspiration. Correlate clinically. Mediastinal structures are stable and grossly unremarkable. No evidence for hilar prominence. Degenerative changes dorsal spine. IMPRESSION: 1. Pulmonary venous congestion with basilar infiltrates and small effusions as well as cardiomegaly s uspicious for congestive failure. Infiltrates of other etiology not excluded. Exam is limited by the degree of inspiration. Correlate clinically.
== END | disposition home or self-care (01) ==
LOC: LABWHC1 10:28
PROVIDERS: ATTEND Neurological Surgery
DX: Z01.812 Encounter for preprocedural laboratory examination (principal); Z51.81 Encounter for therapeutic drug level monitoring
CPT/HCPCS: 36415; 71046; 80053; 81001; 85027; 85610; 85730; 87086; 93005

== ENCOUNTER → 2023-12-17 | Outpatient (CLI) | payer MEDICARE | END | disposition home or self-care (01) | LOC: LABWHC1 10:40 | PROVIDERS: ATTEND Neurological Surgery | DX: Z01.812 Encounter for preprocedural laboratory examination (principal); Z51.81 Encounter for therapeutic drug level monitoring; Z79.899 Other long term (current) drug therapy | CPT/HCPCS: 36415; 85730 ==

== ENCOUNTER → 2023-12-25 | Outpatient (CLI) | payer MEDICARE ==
[2023-12-25 16:28] LABS: HCT 31.8 % (39.6-50.0); HGB 8.8 g/dL (13.0-17.0); MCH 19.8 pg (27.0-32.0); MCHC 27.7 g/dL (32.0-37.0); MCV 71.6 FL (80.0-97.0); Mean Platelet Volume 11.2 FL (9.5-12.2); NRBC Per 100 WBC 0.03 X 10*3/uL (0.00-0.01); Platelet Count 346 X 10*3/uL (140-440); RBC 4.44 X 10*6/uL (4.40-5.60); RDW 18.6 % (11.5-14.5); WBC 8.81 X 10*3/uL (4.50-10.00)
== END | disposition home or self-care (01) ==
LOC: LABWHC1 08:27
PROVIDERS: ATTEND Neurological Surgery
DX: D64.9 Anemia, unspecified (principal)
CPT/HCPCS: 36415; 85027

== ENCOUNTER 2023-12-30 12:44 | Inpatient (IN) | payer MEDICARE ==
[2023-12-30 13:14] LABS: Glucose,Whole Blood 136 mg/dL (70-110)
--- NOTE | 2023-12-30 13:30 | ED ---
General Adult HPI - General Chief complaint: Weakness Stated complaint: Low hemoglobin,Dizziness Time Seen by Provider: 12/30/23 13:09 Source: patient, family, RN notes reviewed, old records reviewed Mode of arrival: wheelchair Limitations: no limitations - History of Present Illness Initial comments: 68-year-old male presenting with increased weakness, difficulty ambulating. Bilateral lower extremity edema and dyspnea. patient was sent in by primary care for evaluation. Patient was noted to have a low hemoglobin as an outpatient. He denies bright red rectal bleeding. He states he was scheduled for cervical spine surgery but this was canceled. He did reports diffuse pain which he states is chronic. - Related Data Home Medications Medication Instructions Recorded Confirmed Aspirin [Adult Low Dose Aspirin EC] 81 mg PO DAILY 04/15/22 12/30/23 Atorvastatin [Lipitor] 40 mg PO DAILY 04/15/22 12/30/23 glyBURIDE [Diabeta] 5 mg PO BID 04/15/22 12/30/23 Gabapentin 800 mg PO QID 06/17/22 12/30/23 HYDROcodone/APAP 5-325MG [[place] 1 tab PO BID 12/17/22 12/30/23 5-325] Apixaban [Eliquis] 5 mg PO DAILY 12/30/23 12/30/23 Budesonide [Pulmicort] 0.5 mg INHALATION RT-BID 12/30/23 12/30/23 Furosemide [Lasix] 40 mg PO BID 12/30/23 12/30/23 Ipratropium-Albuterol Nebulize 3 ml INHALATION RT-TID 12/30/23 12/30/23 [Duoneb 0.5 mg-3 mg/3 ml Soln] Montelukast [Singulair] 10 mg PO DAILY 12/30/23 12/30/23 Pioglitazone [Actos] 15 mg PO DIRECTED 12/30/23 12/30/23 Repaglinide [Prandin] 1 mg PO TID 12/30/23 12/30/23 atenoloL [Tenormin] 50 mg PO BID 12/30/23 12/30/23 Allergies Allergy/AdvReac Type Severity Reaction Status Date / Time No Known Allergies Allergy Verified 12/30/23 12:50 Review of Systems ROS Statement: Those systems with pertinent positive or pertinent negative responses have been documented in the HPI. ROS Other: All systems not noted in ROS Statement are negative. Past Medical History Past Medical History: COPD, CVA/TIA, Diabetes Mellitus, Hypertension, Musculoskeletal Disorder Additional Past Medical History / Comment(s): Hx. "mini stroke after 2nd covid shot", states has been on blood thinners since TIA 2020, hx. fall last 2021 that injured back, frequent falls History of Any Multi-Drug Resistant Organisms: None Reported Past Surgical History: Hernia Repair Additional Past Surgical History / Comment(s): Excision L Facial lipoma, repair hiatal hernia, laminectomy, Past Anesthesia/Blood Transfusion Reactions: No Reported Reaction Past Psychological History: No Psychological Hx Reported Smoking Status: Current every day smoker Past Alcohol Use History: None Reported Past Drug Use History: None Reported - Past Family History Mother Family Medical History: Cancer Additional Family Medical History / Comment(s): Mother of lung cancer. Father History Unknown: Yes General Exam Limitations: no limitations General appearance: alert, in no apparent distress Head exam: Present: atraumatic, normocephalic Eye exam: Present: normal appearance, PERRL ENT exam: Present: normal exam Neck exam: Present: normal inspection. Absent: tenderness Respiratory exam: Present: rales, decreased breath sounds. Absent: respiratory distress Cardiovascular Exam: Present: regular rate, normal rhythm GI/Abdominal exam: Present: soft. Absent: distended, tenderness, guarding Extremities exam: Present: pedal edema Neurological exam: Present: alert, oriented X3, motor sensory deficit (Bilateral lower extremity weakness) Psychiatric exam: Present: normal affect, normal mood Skin exam: Present: warm, dry Course Vital Signs 12/30/23 12/30/23 12/30/23 12:48 14:13 14:20 Temperature 98.2 F 97.9 F Pulse Rate 78 72 Respiratory 24 22 Rate Blood Pressure 144/74 125/66 O2 Sat by Pulse 96 80 L 95 Oximetry 12/30/23 14:24 Temperature Pulse Rate Respiratory 26 H Rate Blood Pressure O2 Sat by Pulse Oximetry Medical Decision Making - Medical Decision Making Was pt. sent in by a medical professional or institution (, PA, FIELD PIPE LINES SUPERVISOR, urgent care, hospital, or group home...) When possible be specific @ -No Did you speak to anyone other than the patient for history (EMS, parent, family, police, friend...)? What history was obtained from this source @ -No Did you review nursing and triage notes (agree or disagree)? Why? @ -I reviewed and agree with nursing and triage notes Were old charts reviewed (outside hosp., previous admission, EMS record, old EKG, old radiological studies, urgent care reports/EKG's, group home records)? Report findings @ -No old charts were reviewed Differential Weakness: Hypoglycemia, shock, sepsis, hyponatremia, anemia, infection, TN, ETOH, adverse medicine reaction, overdose, stroke, this is not meant to be an all-inclusive list. EKG interpreted by me (3pts min.). @ -Sinus rhythm right bundle branch block rate of 75, CT interval 195, QRS dura tion 156, QTc 451 X-rays interpreted by me (1pt min.). @ -Chest x-ray consistent with CHF CT interpreted by me (1pt min.). @ -None done U/S interpreted by me (1pt. min.). @ -None done What testing was considered but not performed or refused? (CT, X-rays, U/S, labs)? Why? @ -None What meds were considered but not given or refused? Why? @ -None Did you discuss the management of the patient with other professionals (professionals i.e. , PA, FIELD PIPE LINES SUPERVISOR, lab, RT, psych nurse, social work nurse, project specialist, t eacher, chief merchandising officer, geriatric case manager)? Give summary @ -No Was smoking cessation discussed for >3mins.? @ -No Was critical care preformed (if so, how long)? @ -No Were there social determinants of health that impacted care today? How? (Homelessness, low income, unemployed, alcoholism, drug addiction, transportation, low edu. Level, literacy, decrease access to med. care, intermediate, rehab)? @ -No Was there de-escalation of care discussed even if they declined (Discuss DNR or withdrawal of care, Hospice)? DNR status @ -No What co-morbidities impacted this encounter? (DM, HTN, Smoking, COPD, CAD, Cancer, CVA, ARF, Chemo, Hep., AIDS, mental health diagnosis, sleep apnea, morbid obesity)? @Diabetes, congestive heart failure, debility Was patient admitted / discharged? Hospital course, mention meds given and route, prescriptions, significant lab abnormalities, going to OR and other pertinent info. @ -[Patient admitted to his primary care provider, weakness, CHF, difficulty ambulating Undiagnosed new problem with uncertain prognosis? @ -No Drug Therapy requiring intensive monitoring for toxicity (Heparin, Nitro, Insulin, Cardizem)? @ -No Were any procedures done? @ -No Diagnosis/symptom? @ -[CHF, weakness Acute, or Chronic, or Acute on Chronic? @Acute on chronic Uncomplicated (without systemic symptoms) or Complicated (systemic symptoms)? @ -Default Side effects of treatment? @ -No Exacerbation, Progression, or Severe Exacerbation? @ -No Poses a threat to life or bodily function? How? (Chest pain, [place], TN, pneumonia, PE, COPD, DKA, ARF, appy, cholecystitis, CVA, Diverticulitis, Homicidal, Suicidal, threat to staff... and all critical care pts) @ -Yes, CHF - Lab Data Result diagrams: 12/30/23 13:35 12/30/23 14:45 Lab Results 12/30/23 12/30/23 12/30/23 Range/Units 13:13 13:35 13:35 WBC 11.9 H (3.8-10.6) k/uL RBC 5.12 (4.30-5.90) m/uL Hgb 10.7 L (13.0-17.5) gm/dL Hct 38.1 L (39.0-53.0) % MCV 74.4 L (80.0-100.0) fL MCH 20.9 L (25.0-35.0) pg MCHC 28.1 L (31.0-37.0) g/dL RDW 20.8 H (11.5-15.5) % Plt Count 285 (150-450) k/uL MPV 9.4 Neutrophils % 79 % Lymphocytes % 11 % Monocytes % 7 % Eosinophils % 0 % Basophils % 0 % Neutrophils # 9.4 H (1.3-7.7) k/uL Lymphocytes # 1.3 (1.0-4.8) k/uL Monocytes # 0.8 (0-1.0) k/uL Eosinophils # 0.0 (0-0.7) k/uL Basophils # 0.1 (0-0.2) k/uL Hypochromasia Marked Poikilocytosis Moderate Anisocytosis Moderate Microcytosis Moderate PT 13.2 H (10.0-12.5) sec INR 1.2 H (<1.2) APTT 23.8 (22.0-30.0) sec Sodium (137-145) mmol/L Potassium (3.5-5.1) mmol/L Chloride (98-107) mmol/L Carbon Dioxide (22-30) mmol/L Anion Gap mmol/L BUN (9-20) mg/dL Creatinine (0.66-1.25) mg/dL Est GFR (CKD-EPI)AfAm (>60 ml/min/1.73 sqM) Est GFR (CKD-EPI)NonAf (>60 ml/min/1.73 sqM) Glucose (74-99) mg/dL POC Glucose (mg/dL) 136 H (70-110) mg/dL POC Glu Customer Service Officer ID [place] Plasma Lactic Acid Joo (0.7-2.0) mmol/L Calcium (8.4-10.2) mg/dL Magnesium (1.6-2.3) mg/dL Total Bilirubin (0.2-1.3) mg/dL AST (17-59) U/L ALT (4-49) U/L Alkaline Phosphatase (38-126) U/L Troponin I (0.000-0.034) ng/mL NT-Pro-B Natriuret Pep pg/mL Total Protein (6.3-8.2) g/dL Albumin (3.5-5.0) g/dL Blood Type Blood Type Recheck Bld Type Recheck Status Antibody Screen Spec Expiration Date 12/30/23 12/30/23 12/30/23 Range/Units 13:35 14:45 14:45 WBC (3.8-10.6) k/uL RBC (4.30-5.90) m/uL Hgb (13.0-17.5) gm/dL Hct (39.0-53.0) % MCV (80.0-100.0) fL MCH (25.0-35.0) pg MCHC (31.0-37.0) g/dL RDW (11.5-15.5) % Plt Count (150-450) k/uL MPV Neutrophils % % Lymphocytes % % Monocytes % % Eosinophils % % Basophils % % Neutrophils # (1.3-7.7) k/uL Lymphocytes # (1.0-4.8) k/uL Monocytes # (0-1.0) k/uL Eosinophils # (0-0.7) k/uL Basophils # (0-0.2) k/uL Hypochromasia Poikilocytosis Anisocytosis Microcytosis PT (10.0-12.5) sec INR (<1.2) APTT (22.0-30.0) sec Sodium 138 (137-145) mmol/L Potassium 4.6 (3.5-5.1) mmol/L Chloride 106 (98-107) mmol/L Carbon Dioxide 25 (22-30) mmol/L Anion Gap 7 mmol/L BUN 27 H (9-20) mg/dL Creatinine 0.71 (0.66-1.25) mg/dL Est GFR (CKD-EPI)AfAm >90 (>60 ml/min/1.73 sqM) Est GFR (CKD-EPI)NonAf >90 (>60 ml/min/1.73 sqM) Glucose 109 H (74-99) mg/dL POC Glucose (mg/dL) (70-110) mg/dL POC Glu Customer Service Officer ID Plasma Lactic Acid Joo (0.7-2.0) mmol/L Calcium 8.7 (8.4-10.2) mg/dL Magnesium 2.2 (1.6-2.3) mg/dL Total Bilirubin 0.5 (0.2-1.3) mg/dL AST 23 (17-59) U/L ALT 8 (4-49) U/L Alkaline Phosphatase 126 (38-126) U/L Troponin I <0.012 (0.000-0.034) ng/mL NT-Pro-B Natriuret Pep 2790 pg/mL Total Protein 6.8 (6.3-8.2) g/dL Albumin 3.3 L (3.5-5.0) g/dL Blood Type O Positive Blood Type Recheck O Pos Bld Type Recheck Status No Antibody Screen NEGATIVE Spec Expiration Date 01/02/2024 - 233412/30/23 Range/Units 14:45 WBC (3.8-10.6) k/uL RBC (4.30-5.90) m/uL Hgb (13.0-17.5) gm/dL Hct (39.0-53.0) % MCV (80.0-100.0) fL MCH (25.0-35.0) pg MCHC (31.0-37.0) g/dL RDW (11.5-15.5) % Plt Count (150-450) k/uL MPV Neutrophils % % Lymphocytes % % Monocytes % % Eosinophils % % Basophils % % Neutrophils # (1.3-7.7) k/uL Lymphocytes # (1.0-4.8) k/uL Monocytes # (0-1.0) k/uL Eosinophils # (0-0.7) k/uL Basophils # (0-0.2) k/uL Hypochromasia Poikilocytosis Anisocytosis Microcytosis PT (10.0-12.5) sec INR (<1.2) APTT (22.0-30.0) sec Sodium (137-145) mmol/L Potassium (3.5-5.1) mmol/L Chloride (98-107) mmol/L Carbon Dioxide (22-30) mmol/L Anion Gap mmol/L BUN (9-20) mg/dL Creatinine (0.66-1.25) mg/dL Est GFR (CKD-EPI)AfAm (>60 ml/min/1.73 sqM) Est GFR (CKD-EPI)NonAf (>60 ml/min/1.73 sqM) Glucose (74-99) mg/dL POC Glucose (mg/dL) (70-110) mg/dL POC Glu Customer Service Officer ID Plasma Lactic Acid Joo 1.4 (0.7-2.0) mmol/L Calcium (8.4-10.2) mg/dL Magnesium (1.6-2.3) mg/dL Total Bilirubin (0.2-1.3) mg/dL AST (17-59) U/L ALT (4-49) U/L Alkaline Phosphatase (38-126) U/L Troponin I (0.000-0.034) ng/mL NT-Pro-B Natriuret Pep pg/mL Total Protein (6.3-8.2) g/dL Albumin (3.5-5.0) g/dL Blood Type Blood Type Recheck Bld Type Recheck Status Antibody Screen Spec Expiration Date Disposition Clinical Impression: CHF (congestive heart failure), Difficulty in walking, Weakness Disposition: ADMITTED IP TO THIS HOSP Condition: Stable Is patient prescribed a controlled substance at d/c from ED?: No Referrals: Jeremy Atkinson MD [Primary Care Provider] - 1-2 days Time of Disposition: 16:22
[2023-12-30 13:51] LABS: Anisocytosis Moderate; Basophils # (A) 0.1 k/uL (0-0.2); Basophils % (A) 0 %; Eosinophils % (A) 0 %; HCT 38.1 % (39.0-53.0); HGB 10.7 gm/dL (13.0-17.5); Hypochromasia Marked; Lymphocytes # (A) 1.3 k/uL (1.0-4.8); Lymphocytes % (A) 11 %; MCH 20.9 pg (25.0-35.0); MCHC 28.1 g/dL (31.0-37.0); MCV 74.4 fL (80.0-100.0); Mean Platelet Volume 9.4; Microcytosis Moderate; Monocytes # (A) 0.8 k/uL (0-1.0); Monocytes % (A) 7 %; Neutrophils # (A) 9.4 k/uL (1.3-7.7); Neutrophils % (A) 79 %; Platelet Count 285 k/uL (150-450); Poikilocytosis Moderate; RBC 5.12 m/uL (4.30-5.90); RDW 20.8 % (11.5-15.5); WBC 11.9 k/uL (3.8-10.6)
[2023-12-30 14:38] LABS: INR 1.2 (<1.2); Partial Thromboplastin Time 23.8 sec (22.0-30.0); Prothrombin Time 13.2 sec (10.0-12.5)
--- NOTE | 2023-12-30 15:08 | XR ---
EXAMINATION TYPE: XR chest 2V DATE OF EXAM: 12/30/2023 COMPARISON: 12/15/2023 HISTORY: Shortness of breath TECHNIQUE: Frontal and lateral views of the chest are obtained. FINDINGS: Scattered senescent parenchymal changes noted. Hyperinflation compatible with COPD. Pulmonary venous congestion with scattered interstitial and alveolar edema. Fluid within the right mi nor fissure as well as small pleural effusions seen posteriorly on the lateral view. Continued cardio megaly. Mediastinal structures are stable and grossly unremarkable. No evidence for hilar prominence. Degenerative changes dorsal spine. IMPRESSION: 1. Findings felt to reflect improved but persistent features of congestive failure. Infiltrates of ot her etiology not excluded.
[2023-12-30 15:20] LABS: ALT 8 U/L (4-49); AST 23 U/L (17-59); African American GFR (CKD) >90 (>60 ml/min/1.73 sqM); Albumin 3.3 g/dL (3.5-5.0); Alkaline Phosphatase 126 U/L (38-126); Anion Gap 7 mmol/L; Blood Urea Nitrogen 27 mg/dL (9-20); Calcium 8.7 mg/dL (8.4-10.2); Carbon Dioxide 25 mmol/L (22-30); Chloride 106 mmol/L (98-107); Glucose 109 mg/dL (74-99); Magnesium 2.2 mg/dL (1.6-2.3); Non-African American GFR(CKD) >90 (>60 ml/min/1.73 sqM); Potassium 4.6 mmol/L (3.5-5.1); Sodium 138 mmol/L (137-145); Total Bilirubin 0.5 mg/dL (0.2-1.3); Total Protein 6.8 g/dL (6.3-8.2)
[2023-12-30 15:29] LABS: NT-Pro-B-Type Natriuretic Pept 2790 pg/mL
[2023-12-30] MEDS: FUROSEMIDE 10 MG/ML 4 ML VIAL IV STA (15:53)
[2023-12-30] MEDS: HYDROcodone/APAP 5-325MG 1 EACH TAB PO STA (16:12)
[2023-12-30 20:18] LABS: Appearance,Urine Cloudy (Clear); Bacteria,Urine Moderate /hpf; Bilirubin,Urine Negative (Negative); Blood,Urine Negative (Negative); Color,Urine Light Yellow; Glucose,Urine (UA) Negative (Negative); Hyaline Casts,Urine 4 /lpf (0-2); Ketones,Urine Negative (Negative); Leukocyte Esterase,Urine Moderate (Negative); Mucus,Urine Occasional /hpf; Nitrite,Urine Positive (Negative); Protein,Urine 1+ (Negative); RBC,Urine 2 /hpf (0-5); Specific Gravity,Urine 1.013 (1.001-1.035); Urobilinogen,Urine <2.0 mg/dL (<2.0); WBC,Urine 13 /hpf (0-5)
[2023-12-30] MEDS ORDERED: RX INFO: IV CONTRAST WAS GIVEN 1 EACH MISC MISCELLANE PRN (20:58)
[2023-12-30] MEDS ORDERED: GLYBURIDE 5 MG PO SCH (21:00)
--- NOTE | 2023-12-30 22:12 | CT ---
EXAMINATION TYPE: CT chest w con DATE OF EXAM: 12/30/2023 COMPARISON: Prior chest CT June 19, 2022 HISTORY: Lung cancer, chest pain and dyspnea CT DLP: 662.8 mGycm. Automated Exposure Control for Dose Reduction was Utilized. TECHNIQUE: CT scan of the thorax is performed following with IV Contrast, patient injected with 100 mL of Isovue 300. FINDINGS: LUNGS: There are new small to moderate-sized right greater than left pleural effusions. There is new right middle lobe masslike consolidation. There is associated bibasilar compressive atelectasis. MEDIASTINUM: More prominent right hilar mass or adenopathy measuring 5.1 x 3.4 cm axial image 33. Mor e prominent right paratracheal 3.0 cm lymph node axial image 23. Some additional enlarged lymph node superior to this. Prominent pulmonary arteries raise concern for underlying pulmonary hypertension. N o cardiomegaly or pericardial effusion is seen. OTHER: Partial visualization of simple appearing thin-walled cyst exophytically from the upper pole l eft kidney posteriorly. Scoliotic curvature is seen. IMPRESSION: 1. Small to moderate-sized right greater left pleural effusions consistent with fluid overload state. 2. New right middle lobe masslike consolidation. Cannot exclude underlying neoplasm. Enlarging right hilar mass or adenopathy and mediastinal adenopathy consistent with neoplastic progression is noted.
[2023-12-30 22:32] LABS: Glucose,Whole Blood 185 mg/dL (70-110)
[2023-12-30] MEDS: FUROSEMIDE 10 MG/ML 4 ML VIAL IV SCH (23:20)
[2023-12-30] MEDS: GABAPENTIN 400 MG CAP PO SCH (23:20)
[2023-12-30] MEDS: atenoloL 50 MG TAB PO SCH (23:20)
[2023-12-30] MEDS: DAPAGLIFLOZIN PROPANEDIOL 5 MG TABLET PO SCH (23:20)
[2023-12-30] MEDS: HYDROcodone/APAP 5-325MG 1 EACH TAB PO SCH (23:21)
[2023-12-30] MEDS: SODIUM FERRIC GLUCONAT-SUCROSE 125 MG in SODIUM CHLORIDE 0.9% 100 ML IVPB SCH (23:21)
[2023-12-30] MEDS: INSULIN ASPART (NovoLOG) 100 UNIT/ML VIAL SQ SCH (23:21)
[2023-12-30] MEDS: REPAGLINIDE 1 MG TAB PO SCH (23:22)
[2023-12-31] MEDS: AMPICILLIN-SULBACTAM 1.5 GM in SODIUM CHLORIDE 0.9% 50 ML IVPB SCH (00:51)
--- NOTE | 2023-12-31 01:51 | HP ---
HISTORY AND PHYSICAL HISTORY OF PRESENT ILLNESS: He was admitted to the hospital due to severe low hemoglobin of 8. He was supposed to get cervical surgery, withheld until his hemoglobin gets better. He is weak, fatigued, unable to ambulate. His legs are swollen diffusely and short of breath all the time. He has elevated BNP and 3+ edema in his legs. He is admitted for acute on chronic CHF. He denied any bright red bleeding. He wears oxygen at home. He has chronic dyspnea, he needs breathing treatments. HOME MEDICINES: 1. Singulair 10 mg daily. 2. DuoNeb q.i.d. 3. Lasix 40 b.i.d. 4. Pulmicort 0.5 b.i.d. 5. Eliquis 5 b.i.d.. 6. [place] 5/325 b.i.d. 7. Gabapentin 800 q.i.d. 8. DiaBeta 5 mg b.i.d. 9. Lipitor 40 daily. 10.Aspirin daily. 11.Actos 15 mg daily. 12.Prandin 1 mg t.i.d. 13.Tenormin 50 b.i.d. History of CVA, TIA, COPD, diabetes mellitus, hypertension, musculoskeletal disorder. He has stroke with second COVID shot, on blood thinners since. Hit his back, frequent falls, hernia repair. He has had facial lipomas and repaired hernia. History of lung cancer in the past, COPD, CVA, TIA, diabetes mellitus. FAMILY HISTORY: Mother, cancer of the lung. Father, unknown. PHYSICAL EXAMINATION: GENERAL: He looks weak, fatigued, stated age. VITAL SIGNS: Temperature 98.2, pulse 70 to 78, respiratory rate 20 to 24, blood pressure 120 to 140s over 60s to 70s, O2 96, 80 on room air, low 90s on 3 L. HEART: S1, S2. LUNGS: Scattered rhonchi and wheeze. HEENT: Looks weak, disheveled, wears glasses. SKIN: Dry mucous membranes. HEMATOLOGY: 3+ edema. He has abnormal UA, started on UTI medications. He has history of drug-resistant UTIs. ASSESSMENT: Congestive heart failure, acute on chronic COPD exacerbation, drug-resistant UTI is likely, right bundle-branch block, acute on chronic anemia, leukocytosis, sepsis secondary to UTI, iron deficiency anemia. Give iron infusions. IV antibiotics for drug-resistant UTI. IV Lasix. Echo. Marine Services Technician consult. CT of the chest. Prognosis guarded. Continue current treatment. Prognosis guarded. AL / GRISELN: [id number] /
[2023-12-31 06:44] LABS: Glucose,Whole Blood 201 mg/dL (70-110)
[2023-12-31] MEDS: MONTELUKAST 10 MG TAB PO SCH (08:19)
[2023-12-31] MEDS: ATORVASTATIN 40 MG TAB PO SCH (08:19)
[2023-12-31] MEDS: ASPIRIN 81 MG PO SCH (08:20)
[2023-12-31] MEDS: APIXABAN 5 MG TAB PO SCH (08:20)
[2023-12-31] MEDS: LORATADINE 10 MG TAB PO SCH (08:20)
[2023-12-31] MEDS: IPRATROPIUM-ALBUTEROL 3 ML NEB INHALATION SCH (10:19)
[2023-12-31] MEDS: BUDESONIDE 0.5 MG/2 ML NEBU INHALATION SCH (10:19)
--- NOTE | 2023-12-31 10:22 | P.CRDCN ---
History of Present Illness History of present illness: HISTORY OF PRESENT ILLNESS: This is a 68-year-old male with a past medical history significant for diabetes, congestive heart failure, hypertension, hyperlipidemia, and CVA. Patient does not follow with a fire suppression captain at [facility]. We have been asked to see the patient in consultation for congestive heart failure. Patient examined at the bedside. Patient presented to the emergency room with a chief complaint of shortness of breath. The patient denies any chest pain or pressure. Patient was started on IV Lasix. He reports improvement in his shortness of breath this morning. Vital signs are stable. Patient states he was started on Eliquis after experiencing a CVA after receiving the COVID-vaccine. DIAGNOSTICS: - EKG reveals sinus mechanism with right bundle branch block. No signs of acute ischemia.. - Chest xray findings felt to reflect improved but persistent features of congestive heart failure. Infiltrates of other etiology not excluded. -Chest CT: Small to moderate-sized right greater than left pleural effusion consistent with fluid overload state. New right middle lobe masslike consolidation. Cannot exclude underlying neoplasm. Enlarging right hilar mass or adenopathy and mediastinal adenopathy consistent with neoplastic progression is noted. - Laboratory data: WBC 11.9. Hemoglobin 10.7. Platelet count 285. Sodium 138. Potassium 4.6. BUN 27. Creatinine 0.71. Troponin negative x 1. proBNP 2790. - Current home cardiac medications include Eliquis 5 mg daily, aspirin 81 mg daily, Lipitor 40 mg daily, Lasix 40 mg twice a day, atenolol 50 mg twice a day. - Most recent echocardiogram obtained in June 2022 revealed ejection fraction 55%, mild MR, and trace to mild TR REVIEW OF SYSTEMS: At the time of my exam: CONSTITUTIONAL: Denies fever or chills. HEENT: Denies blurred vision, vision changes, or eye pain. Denies hemoptysis CARDIOVASCULAR: Denies chest pain. Denies orthopnea. Denies PND. Denies palpitations RESPIRATORY: Denies shortness of breath. GASTROINTESTINAL: Denies abdominal pain. Denies nausea or vomiting. HEMATOLOGIC: Denies bleeding disorders. GENITOURINARY: Denies any blood in urine. SKIN: Denies pruitis. Denies rash. PHYSICAL EXAM: VITAL SIGNS: Reviewed. GENERAL: Well-developed in no acute distress. HEENT: Head is normocephalic. Pupils are equal, round. Sclerae anicteric. Mucous membranes of the mouth are moist. Neck supple. No JVD or thyromegaly LUNGS: Respirations even and unlabored. Lungs diminished with crackles noted HEART: Regular rate and rhythm. S1 and S2 heard. ABDOMEN: Soft. Nondistended. Nontender. EXTREMITIES: Normal range of motion. No clubbing or cyanosis. Peripheral pulse s intact. Lateral lower extremity edema noted NEUROLOGIC: Awake and alert. Oriented x 3. ASSESSMENT: Acute anemia, etiology unclear, scheduled for cervical surgery which has been canceled due to anemia Shortness of breath Acute on chronic heart failure with preserved EF Small to moderate sized right greater than left pleural effusions New right middle lobe masslike consolidation, rule out underlying neoplasm Hypertension Hyperlipidemia Striae of TIA/CVA Diabetes PLAN: Obtain 2D echo to assess cardiac structure and function Discontinue Eliquis as this is not indicated for patient Continue additional home cardiac medications Continue IV Lasix 40 mg IV every 12 hours Daily weights, accurate intake and output, and monitoring of kidney function Further recommendations pending patient course Nurse practitioner note has been reviewed by physician. Signing provider agrees with the documented findings, assessment, and plan of care documented by NEONATAL INTENSIVE CARE UNIT NURSE as a scribe. Past Medical History Past Medical History: COPD, CVA/TIA, Diabetes Mellitus, Hypertension, Musculoskeletal Disorder Additional Past Medical History / Comment(s): Hx. "mini stroke after 2nd covid shot", states has been on blood thinners since TIA 2020, hx. fall last 2021 that injured back, frequent falls History of Any Multi-Drug Resistant Organisms: None Reported Past Surgical History: Hernia Repair Additional Past Surgical History / Comment(s): Excision L Facial lipoma, repair hiatal hernia, laminectomy, Past Anesthesia/Blood Transfusion Reactions: No Reported Reaction Past Psychological History: No Psychological Hx Reported Additional Psychological History / Comment(s): Pt is currently staying with his exwife and daughter. Pt states he lives in [place] but is stuck here right now because of everything going on medically Smoking Status: Current every day smoker Past Alcohol Use History: None Reported Additional Past Alcohol Use History / Comment(s): Pt states he use to drink about 20 years ago, quit smoking 09/2022, was 2ppd since teens Past Drug Use History: None Reported - Past Family History Mother Family Medical History: Cancer Additional Family Medical History / Comment(s): Mother of lung cancer. Father History Unknown: Yes Medications and Allergies Home Medications Medication Instructions Recorded Confirmed Type Aspirin [Adult Low Dose Aspirin EC] 81 mg PO DAILY 04/15/22 12/30/23 History Atorvastatin [Lipitor] 40 mg PO DAILY 04/15/22 12/30/23 History glyBURIDE [Diabeta] 5 mg PO BID 04/15/22 12/30/23 History Gabapentin 800 mg PO QID 06/17/22 12/30/23 History HYDROcodone/APAP 5-325MG [[place] 1 tab PO BID 12/17/22 12/30/23 History 5-325] Apixaban [Eliquis] 5 mg PO DAILY 12/30/23 12/30/23 History Budesonide [Pulmicort] 0.5 mg INHALATION RT-BID 12/30/23 12/30/23 History Furosemide [Lasix] 40 mg PO BID 12/30/23 12/30/23 History Ipratropium-Albuterol Nebulize 3 ml INHALATION RT-TID 12/30/23 12/30/23 History [Duoneb 0.5 mg-3 mg/3 ml Soln] Montelukast [Singulair] 10 mg PO DAILY 12/30/23 12/30/23 History Pioglitazone [Actos] 15 mg PO DIRECTED 12/30/23 12/30/23 History Repaglinide [Prandin] 1 mg PO TID 12/30/23 12/30/23 History atenoloL [Tenormin] 50 mg PO BID 12/30/23 12/30/23 History Allergies Allergy/AdvReac Type Severity Reaction Status Date / Time No Known Allergies Allergy Verified 12/30/23 12:50 Physical Exam Vitals: Vital Signs Temp Pulse Pulse Resp BP BP Pulse Ox 12/31/23 07:24 98.1 F 71 20 121/64 90 L 12/31/23 02:00 97.5 F L 70 14 104/61 94 L 12/30/23 22:30 98.1 F 78 20 139/71 93 L 12/30/23 18:48 77 18 112/50 94 L 12/30/23 14:24 26 H 12/30/23 14:20 97.9 F 72 22 125/66 95 12/30/23 14:13 80 L 12/30/23 12:48 98.2 F 78 24 144/74 96 Intake and Output 12/30/23 12/31/23 12/31/23 22:59 06:59 14:59 Output Total 500 Balance -500 Output: Urine 500 Other: Voiding Method Urinal Urinal # Voids 1 Weight 81.647 kg Results 12/30/23 13:35 12/30/23 14:45 Cardiac Enzymes 12/30/23 12/30/23 Range/Units 14:45 14:45 AST 23 (17-59) U/L Troponin I <0.012 (0.000-0.034) ng/mL Coagulation 12/30/23 Range/Units 13:35 PT 13.2 H (10.0-12.5) sec APTT 23.8 (22.0-30.0) sec CBC 12/30/23 Range/Units 13:35 WBC 11.9 H (3.8-10.6) k/uL RBC 5.12 (4.30-5.90) m/uL Hgb 10.7 L (13.0-17.5) gm/dL Hct 38.1 L (39.0-53.0) % Plt Count 285 (150-450) k/uL Comprehensive Metabolic Panel 12/30/23 Range/Units 14:45 Sodium 138 (137-145) mmol/L Potassium 4.6 (3.5-5.1) mmol/L Chloride 106 (98-107) mmol/L Carbon Dioxide 25 (22-30) mmol/L BUN 27 H (9-20) mg/dL Creatinine 0.71 (0.66-1.25) mg/dL Glucose 109 H (74-99) mg/dL Calcium 8.7 (8.4-10.2) mg/dL AST 23 (17-59) U/L ALT 8 (4-49) U/L Alkaline Phosphatase 126 (38-126) U/L Total Protein 6.8 (6.3-8.2) g/dL Albumin 3.3 L (3.5-5.0) g/dL Current Medications Generic Name Dose Route Start Last Admin Trade Name Freq PRN Reason Stop Dose Admin Acetaminophen 650 mg 12/30/23 16:19 Acetaminophen Tab 325 Mg Tab PO Q6HR PRN Mild Pain or Fever > 100.5 Hydrocodone Bitart/Acetaminophen 1 each 12/30/23 16:19 Hydrocodone/Apap 5-325mg 1 Each Tab PO Q6HR PRN Moderate Pain (Scale 4 to 6) Hydrocodone Bitart/Acetaminophen 1 each 12/30/23 21:00 12/31/23 08:20 Hydrocodone/Apap 5-325mg 1 Each Tab PO 1 each BID HAROON Administration Albuterol/Ipratropium 3 ml 12/31/23 08:00 Ipratropium-Albuterol 3 Ml Neb INHALATION RT-TID HAROON Aspirin 81 mg 12/31/23 09:00 12/31/23 08:20 Aspirin 81 Mg PO 81 mg DAILY HAROON Administration Atenolol 50 mg 12/30/23 21:00 12/31/23 08:20 Atenolol 50 Mg Tab PO 50 mg BID HAROON Administration Atorvastatin Calcium 40 mg 12/31/23 09:00 12/31/23 08:19 Atorvastatin 40 Mg Tab PO 40 mg DAILY HAROON Administration Budesonide 0.5 mg 12/31/23 08:00 Budesonide 0.5 Mg/2 Ml Nebu INHALATION RT-BID HAROON Dapagliflozin 5 mg 12/30/23 21:00 12/30/23 23:20 Dapagliflozin Propanediol 5 Mg Tablet PO 5 mg HS HAROON Administration Furosemide 40 mg 12/30/23 21:00 12/31/23 08:20 Furosemide 10 Mg/Ml 4 Ml Vial IV 40 mg Q12HR HAROON Administration Gabapentin 800 mg 12/30/23 22:00 12/31/23 08:20 Gabapentin 400 Mg Cap PO 800 mg QID HAROON Administration Ampicillin Sodium/Sulbactam 50 mls @ 100 mls/hr 12/31/23 00:00 12/31/23 08:45 Sodium 1.5 gm/ Sodium Chloride IVPB 100 mls/hr Q8HR HAROON Administration Protocol Ferric Sodium Gluconate 125 mg 110 mls @ 100 mls/hr 12/30/23 21:30 12/31/23 09:21 / Sodium Chloride IVPB 100 mls/hr DAILY HAROON Administration Insulin Aspart 0 unit 12/30/23 21:00 12/31/23 06:54 Insulin Aspart (Novolog) 100 Unit/Ml Vial SQ 4 unit ACHS HAROON Administration Protocol Loratadine 10 mg 12/31/23 09:00 12/31/23 08:20 Loratadine 10 Mg Tab PO 10 mg DAILY HAROON Administration Miscellaneous Information 1 each 12/30/23 20:58 Rx Info: Iv Contrast Was Given 1 Each Misc MISCELLANE 01/01/24 20:58 DAILY PRN Per Protocol Montelukast Sodium 10 mg 12/31/23 09:00 12/31/23 08:19 Montelukast 10 Mg Tab PO 10 mg DAILY HAROON Administration Naloxone HCl 0.2 mg 12/30/23 16:19 Naloxone 0.4 Mg/Ml 1 Ml Vial IV Q2M PRN Opioid Reversal Pioglitazone HCl 15 mg 12/30/23 21:00 Pioglitazone 15 Mg Tab PO DIRECTED HAROON Repaglinide 1 mg 12/30/23 22:00 12/31/23 08:21 Repaglinide 1 Mg Tab PO 1 mg TID HAROON Administration Intake and Output 12/30/23 12/31/23 12/31/23 22:59 06:59 14:59 Output Total 500 Balance -500 Output: Urine 500 Other: Voiding Method Urinal Urinal # Voids 1 Weight 81.647 kg 12/30/23 13:35 12/30/23 14:45
[2023-12-31 11:11] LABS: Basophils # (A) 0.04 X 10*3/uL (0.00-0.10); Basophils % (A) 0.4 %; Eosinophils # (A) 0.03 X 10*3/uL (0.04-0.35); Eosinophils % (A) 0.3 %; HCT 31.3 % (39.6-50.0); HGB 8.4 g/dL (13.0-17.0); Lymphocytes # (A) 0.98 X 10*3/uL (0.90-5.00); MCH 20.2 pg (27.0-32.0); MCHC 26.8 g/dL (32.0-37.0); MCV 75.2 FL (80.0-97.0); Mean Platelet Volume 11.1 FL (9.5-12.2); Monocytes # (A) 1.22 X 10*3/uL (0.20-1.00); Monocytes % (A) 11.2 %; NRBC Per 100 WBC 0 X 10*3/uL (0.00-0.01); Neutrophils % (A) 78.6 %; Platelet Count 227 X 10*3/uL (140-440); RBC 4.16 X 10*6/uL (4.40-5.60); RDW 21.6 % (11.5-14.5); WBC 10.93 X 10*3/uL (4.50-10.00)
[2023-12-31 11:18] LABS: ALT 5 U/L (10-49); AST 7 U/L (14-35); Albumin 3.1 g/dL (3.8-4.9); Albumin/Globulin Ratio 1.11 Ratio (1.60-3.17); Alkaline Phosphatase 108 U/L (41-126); BUN/Creat Ratio 27.09 Ratio (12.00-20.00); Blood Urea Nitrogen 29.8 mg/dL (9.0-27.0); Calcium 8.4 mg/dL (8.7-10.3); Carbon Dioxide 26.9 mmol/L (21.6-31.8); Chloride 102 mmol/L (96-109); Globulin 2.8 g/dL (1.6-3.3); Glucose 187 mg/dL (70-110); Potassium 4.8 mmol/L (3.5-5.5); Sodium 139 mmol/L (135-145); Total Bilirubin <0.2 mg/dL (0.3-1.2); Total Protein 5.9 g/dL (6.2-8.2)
[2023-12-31 12:06] LABS: Glucose,Whole Blood 174 mg/dL (70-110)
[2023-12-31 16:32] LABS: Glucose,Whole Blood 224 mg/dL (70-110)
[2023-12-31] MEDS: PIOGLITAZONE 15 MG TAB PO SCH (16:46)
[2023-12-31] MEDS: HYDROcodone/APAP 5-325MG 1 EACH TAB PO PRN (17:00)
[2023-12-31 20:37] LABS: Glucose,Whole Blood 162 mg/dL (70-110)
--- NOTE | 2023-12-31 22:39 | P.CONS ---
History of Present Illness - Reason for Consult Consult date: 12/31/23 Drug-resistant UTI Requesting physician: Jeremy Atkinson - Chief Complaint Weakness and shortness of breath x few days - History of Present Illness Patient is a 68-year-old male with a past medical history significant for diabetes mellitus hypertension CVA TIA COPD current everyday smoker presenting to the hospital for evaluation of increased weakness and difficulty breathing patient complaining of increasing shortness of breath getting worse for the last few days also with bilateral lower extremity edema patient was eval by PCP in the office and sent to the hospital for further management patient denies high-grade fever or any chills denies any headache or URI symptoms no chest pain he did have some cough but not bringing up any sputum no nausea vomiting no abdominal pain did have some difficulty urination but denies any suprapubic or flank pain patient on presentation to the hospital was afebrile and no fever have recorded subsequently patient did have a white count of 11.9 with a left shift creatinine was 1.1 liver isms are normal electrolytes are normal urine has been positive patient was started on Unasyn infectious was consulted for drug-resistant UTI patient recent urine culture done on 12/15/2023 was positive for Klebsiella with intermediate sensitivity to Unasyn patient did have a chest x-ray findings felt reflecting for Percocet which he will consult to heart failure he also have a CT of the chest small to moderate size right greater than left effusion new right middle lobe masslike consolidation cannot exclude underlying neoplasm enlarging right hilar mass or adenopathy infectious disease was consulted for further management of antibiotic be concerning for drug-resistant UTI Review of Systems Positive point and negatives has been mentioned in the HPI, complete review of systems was performed and all other systems are negative Past Medical History Past Medical History: COPD, CVA/TIA, Diabetes Mellitus, Hypertension, Musculoskeletal Disorder Additional Past Medical History / Comment(s): Hx. "mini stroke after 2nd covid shot", states has been on blood thinners since TIA 2020, hx. fall last 2021 that injured back, frequent falls History of Any Multi-Drug Resistant Organisms: None Reported Past Surgical History: Hernia Repair Additional Past Surgical History / Comment(s): Excision L Facial lipoma, repair hiatal hernia, laminectomy, Past Anesthesia/Blood Transfusion Reactions: No Reported Reaction Past Psychological History: No Psychological Hx Reported Additional Psychological History / Comment(s): Pt is currently staying with his exwife and daughter. Pt states he lives in [place] but is stuck here right now because of everything going on medically Smoking Status: Current every day smoker Past Alcohol Use History: None Reported Additional Past Alcohol Use History / Comment(s): Pt states he use to drink about 20 years ago, quit smoking 09/2022, was 2ppd since teens Past Drug Use History: None Reported - Past Family History Mother Family Medical History: Cancer Additional Family Medical History / Comment(s): Mother of lung cancer. Father History Unknown: Yes Medications and Allergies Home Medications Medication Instructions Recorded Confirmed Type Aspirin [Adult Low Dose Aspirin EC] 81 mg PO DAILY 04/15/22 12/30/23 History Atorvastatin [Lipitor] 40 mg PO DAILY 04/15/22 12/30/23 History Gabapentin 800 mg PO QID 06/17/22 12/30/23 History HYDROcodone/APAP 5-325MG [[place] 1 tab PO BID 12/17/22 12/30/23 History 5-325] Budesonide [Pulmicort] 0.5 mg INHALATION RT-BID 12/30/23 12/30/23 History Furosemide [Lasix] 40 mg PO BID 12/30/23 12/30/23 History Ipratropium-Albuterol Nebulize 3 ml INHALATION RT-TID 12/30/23 12/30/23 History [Duoneb 0.5 mg-3 mg/3 ml Soln] Montelukast [Singulair] 10 mg PO DAILY 12/30/23 12/30/23 History Repaglinide [Prandin] 1 mg PO TID 12/30/23 12/30/23 History atenoloL [Tenormin] 50 mg PO BID 12/30/23 12/30/23 History Acetaminophen Tab [Tylenol] 650 mg PO Q6HR PRN tab 01/07/24 Rx Dapagliflozin Propanediol [Farxiga] 5 mg PO HS 90 Days #90 tab 01/07/24 Rx Loratadine [Claritin] 10 mg PO DAILY 90 Days #90 tab 01/07/24 Rx Midodrine [ProAmatine] 10 mg PO AC-TID 30 Days #90 tab 01/07/24 Rx Pioglitazone [Actos] 15 mg PO DIRECTED 90 Days #90 01/07/24 Rx tab metOLazone [Zaroxolyn] 2.5 mg PO DAILY 90 Days #90 tab 01/07/24 Rx Amoxic-Pot Clav 875-125Mg 1 tab PO BID #14 tab 01/21/24 Rx [Augmentin 875-125] Fluconazole [Diflucan] 100 mg PO DAILY tab 01/21/24 Rx Nystatin 100,000 Unit/ml Susp 5 ml PO QID #140 ml 01/21/24 Rx [Mycostatin Oral Susp] Nystatin 100,000 Unit/ml Susp 500,000 unit PO QID ml 01/21/24 Rx [Mycostatin Oral Susp] Allergies Allergy/AdvReac Type Severity Reaction Status Date / Time No Known Allergies Allergy Verified 12/30/23 12:50 Physical Exam Vitals: Vital Signs Temp Pulse Pulse Resp BP BP Pulse Ox 12/31/23 13:42 98.0 F 74 19 100/57 91 L 12/31/23 13:32 80 12/31/23 13:23 78 12/31/23 12:08 19 92 L 12/31/23 10:32 90 88 L 12/31/23 10:20 88 12/31/23 07:24 98.1 F 71 20 121/64 90 L 12/31/23 02:00 97.5 F L 70 14 104/61 94 L 12/30/23 22:30 98.1 F 78 20 139/71 93 L 12/30/23 18:48 77 18 112/50 94 L Intake and Output 12/31/23 12/31/23 12/31/23 06:59 14:59 22:59 Output Total 350 Balance -350 Output: Urine 350 Other: Voiding Method Urinal # Voids 1 GENERAL DESCRIPTION: Elderly male lying in bed, no distress. No tachypnea or accessory muscle of respiration use. HEENT: Shows Pallor , no scleral icterus. Oral mucous membrane is dry. No pharyngeal erythema or thrush NECK: Trachea central, no thyromegaly. LUNGS: Unlabored breathing. Coarse breath sounds bilaterally HEART: S1, S2, regular rate and rhythm. No loud murmur ABDOMEN: Soft, no tenderness , guarding or rigidity, no organomegaly EXTREMITIES: Left lower extremity some dry scaly skin SKIN: No rash, no masses palpable. NEUROLOGICAL: The patient is awake, alert, mood and affect normal. Results CBC & Chem 7: 01/21/24 05:25 01/21/24 05:25 Labs: Abnormal Lab Results - Last 24 Hours (Table) 12/30/23 12/30/23 12/31/23 Range/Units 13:19 22:31 06:12 WBC (4.50-10.00) X 10*3/uL RBC (4.40-5.60) X 10*6/uL Hgb (13.0-17.0) g/dL Hct (39.6-50.0) % MCV (80.0-97.0) FL MCH (27.0-32.0) pg MCHC (32.0-37.0) g/dL RDW (11.5-14.5) % Immature Gran # (0.00-0.04) X 10*3/uL Neutrophils # (1.80-7.70) X 10*3/uL Monocytes # (0.20-1.00) X 10*3/uL Eosinophils # (0.04-0.35) X 10*3/uL BUN (9.0-27.0) mg/dL BUN/Creatinine Ratio (12.00-20.00) Ratio Glucose (70-110) mg/dL POC Glucose (mg/dL) 185 H (70-110) mg/dL Calcium (8.7-10.3) mg/dL Total Bilirubin (0.3-1.2) mg/dL AST (14-35) U/L ALT (10-49) U/L Total Protein (6.2-8.2) g/dL Albumin (3.8-4.9) g/dL Albumin/Globulin Ratio (1.60-3.17) Ratio Procalcitonin 0.10 H (0.02-0.09) ng/mL Urine Protein 1+ H (Negative) Ur Leukocyte Esterase Moderate H (Negative) Urine WBC 13 H (0-5) /hpf Urine Bacteria Moderate H (None) /hpf Hyaline Casts 4 H (0-2) /lpf Urine Mucus Occasional H (None) /hpf 12/31/23 12/31/23 12/31/23 Range/Units 06:12 06:12 06:42 WBC 10.93 H (4.50-10.00) X 10*3/uL RBC 4.16 L (4.40-5.60) X 10*6/uL Hgb 8.4 L (13.0-17.0) g/dL Hct 31.3 L (39.6-50.0) % MCV 75.2 L (80.0-97.0) FL MCH 20.2 L (27.0-32.0) pg MCHC 26.8 L (32.0-37.0) g/dL RDW 21.6 H (11.5-14.5) % Immature Gran # 0.06 H (0.00-0.04) X 10*3/uL Neutrophils # 8.60 H (1.80-7.70) X 10*3/uL Monocytes # 1.22 H (0.20-1.00) X 10*3/uL Eosinophils # 0.03 L (0.04-0.35) X 10*3/uL BUN 29.8 H (9.0-27.0) mg/dL BUN/Creatinine Ratio 27.09 H (12.00-20.00) Ratio Glucose 187 H (70-110) mg/dL POC Glucose (mg/dL) 201 H (70-110) mg/dL Calcium 8.4 L (8.7-10.3) mg/dL Total Bilirubin <0.2 L (0.3-1.2) mg/dL AST 7 L (14-35) U/L ALT 5 L (10-49) U/L Total Protein 5.9 L (6.2-8.2) g/dL Albumin 3.1 L (3.8-4.9) g/dL Albumin/Globulin Ratio 1.11 L (1.60-3.17) Ratio Procalcitonin (0.02-0.09) ng/mL Urine Protein (Negative) Ur Leukocyte Esterase (Negative) Urine WBC (0-5) /hpf Urine Bacteria (None) /hpf Hyaline Casts (0-2) /lpf Urine Mucus (None) /hpf 12/31/23 12/31/23 Range/Units 12:04 16:31 WBC (4.50-10.00) X 10*3/uL RBC (4.40-5.60) X 10*6/uL Hgb (13.0-17.0) g/dL Hct (39.6-50.0) % MCV (80.0-97.0) FL MCH (27.0-32.0) pg MCHC (32.0-37.0) g/dL RDW (11.5-14.5) % Immature Gran # (0.00-0.04) X 10*3/uL Neutrophils # (1.80-7.70) X 10*3/uL Monocytes # (0.20-1.00) X 10*3/uL Eosinophils # (0.04-0.35) X 10*3/uL BUN (9.0-27.0) mg/dL BUN/Creatinine Ratio (12.00-20.00) Ratio Glucose (70-110) mg/dL POC Glucose (mg/dL) 174 H 224 H (70-110) mg/dL Calcium (8.7-10.3) mg/dL Total Bilirubin (0.3-1.2) mg/dL AST (14-35) U/L ALT (10-49) U/L Total Protein (6.2-8.2) g/dL Albumin (3.8-4.9) g/dL Albumin/Globulin Ratio (1.60-3.17) Ratio Procalcitonin (0.02-0.09) ng/mL Urine Protein (Negative) Ur Leukocyte Esterase (Negative) Urine WBC (0-5) /hpf Urine Bacteria (None) /hpf Hyaline Casts (0-2) /lpf Urine Mucus (None) /hpf Assessment and Plan (1) Pneumonia Status: Acute Code(s): J18.9 - PNEUMONIA, UNSPECIFIED ORGANISM SNOMED Code(s): 273820083 (2) Urinary tract infection Status: Acute Code(s): N39.0 - URINARY TRACT INFECTION, SITE NOT SPECIFIED SNOMED Code(s): 60158881 Plan: 1patient presented to hospital with generalized weakness which is likely multifactorial patient did have some urinary symptoms positive UA concerning for symptomatic UTI with a last urine culture positive for Klebsiella that was intermediate to Unasyn 2-patient also have abnormal CT of the chest concerning for masslike consolidation and lymphadenopathy concerning for possible malignancy pneumonia less likely but not excluded 3we will discontinue Unasyn and start the patient on Rocephin 2 g daily 3check inflammatory markers a sputum for Gram stain culture and get pulmonary evaluation We will follow on clinical condition and cultures to further adjust medication if needed Thank you for this consultation we will follow the patient along with you Dictation was produced using [employer] dictation software. please excuse any grammatical, word or spelling errors. Time with Patient: Greater than 30
--- NOTE | 2023-12-31 23:58 | PN ---
PROGRESS NOTE SUBJECTIVE: This is a 68-year-old white male, admitted with CHF, came to the hospital with CHF. I started him on IV Lasix for increased swelling. He has [id number] size pleural effusions consistent with fluid overload, new right middle lobe mass like consolidation. Possibly cannot exclude underlying neoplasm, enlarging right hilar mass or adenopathy, mediastinal adenopathy consistent with neoplastic progression is noted. Right hilar mass is 5.1 x 3.4 cm, right peritracheal 3.0 cm lymph node, prominent pulmonary arteries, pulmonary hypertension. Prognosis guarded. Cardiology saw the patient. BNP is 2790, troponin negative x1. The recommendations are acute anemia, scheduled for cervical surgery, which will be rescheduled. Shortness of breath secondary to heart failure with preserved ejection fraction, pleural effusions, new right middle lobe mass, possibly underlying neoplasms, hypertension, dyslipidemia, striae, TIA, CVA, diabetes. Echo has been ordered. IV Lasix is being ordered. Home cardiac medicines. Monitor kidney function. PROGNOSIS: Guarded. MMODL / GRISELN: [id number] /
[2024-01-01 05:42] LABS: Glucose,Whole Blood 160 mg/dL (70-110)
--- NOTE | 2024-01-01 07:40 | CA ---
Transthoracic Echo Report Name: Emre Borrego Age: 68 Gender: M : 1955 Exam Date: 12/31/2023 08:51 Exam Location: [facility] Ht (in): 71 Wt (lb): 180 Ordering Physician: Jeremy Atkinson MD Attending/Referring Phys: Auto Damage Trainee Kortney Monzon RDCS Procedure CPT: Indications: chf Cardiac Hx: Technical Quality: Fair Contrast 1: Total Dose (mL): Contrast 2: Total Dose (mL): MEASUREMENTS (Male / Female) Normal Values 2D ECHO LV Diastolic Diameter PLAX 4.2 cm 4.2 - 5.9 / 3.9 - 5.3 cm LV Systolic Diameter PLAX 3.7 cm IVS Diastolic Thickness 1.5 cm 0.6 - 1.0 / 0.6 - 0.9 cm LVPW Diastolic Thickness 1.4 cm 0.6 - 1.0 / 0.6 - 0.9 cm LV Relative Wall Thickness 0.7 RV Internal Dim ED PLAX 4.2 cm LA Systolic Diameter LX 4.1 cm 3.0 - 4.0 / 2.7 - 3.8 cm LV Diastolic Volume MOD 4C 94.2 cm??? LV Systolic Volume MOD 4C 39.7 cm??? LV Ejection Fraction MOD 4C 57.8 % LV Cardiac Index MOD 4C 1932.2 cm???/min???m??? LV Diastolic Length 4C 9.3 cm LV Systolic Length 4C 7.6 cm LV Diastolic Volume MOD 2C 124.2 cm??? LV Systolic Volume MOD 2C 63.8 cm??? LV Ejection Fraction MOD 2C 48.6 % LV Cardiac Index MOD 2C 2143.2 cm???/min???m??? LV Diastolic Length 2C 8.3 cm LV Systolic Length 2C 7.2 cm LA Volume 79.3 cm??? 18 - 58 / 22 - 52 cm??? LA Volume Index 39.0 cm???/m??? 16 - 28 cm???/m??? DOPPLER AV Peak Velocity 146.0 cm/s AV Peak Gradient 8.5 mmHg MV Area PHT 2.6 cm??? Mitral E Point Velocity 123.8 cm/s Mitral A Point Velocity 124.8 cm/s Mitral E to A Ratio 1.0 MV Deceleration Time 288.6 ms TR Peak Velocity 325.4 cm/s TR Peak Gradient 42.4 mmHg Right Ventricular Systolic Press 56.3 mmHg FINDINGS Left Ventricle Left ventricular ejection fraction is estimated at 50-55 %. Left ventricular cavity size normal. Moderate concentric left ventricular hypertrophy. No obvious regional wall motion abnormalities. Right Ventricle Moderate right ventricular dilatation. Severe pulmonary hypertension. Right ventricular systolic pressure estimated at 56 mm hg. Right Atrium Normal right atrial size. Left Atrium Mildly increased left atrial diameter. Moderately increased left atrial volume. Mildly increased left atrial area. Mitral Valve Structurally normal mitral valve. Trace mitral regurgitation. Aortic Valve Trileaflet aortic valve. No aortic valve stenosis or regurgitation. Tricuspid Valve Structurally normal tricuspid valve. Mild tricuspid regurgitation. Pulmonic Valve Structurally normal pulmonic valve. Mild pulmonic regurgitation. Pericardium No pericardial effusion. Aorta Normal size aortic root and proximal ascending aorta. CONCLUSIONS 70 LV systolic function Pulmonary hypertension RVSP in the mid 50s Previewed by: Dr. Galen Pressley MD (Electronically Signed) Final Date: 01 January 2024 07:40
[2024-01-01] MEDS: FUROSEMIDE 10 MG/ML 4 ML VIAL IV SCH (09:01)
[2024-01-01 10:24] LABS: Basophils # (A) 0.08 X 10*3/uL (0.00-0.10); Basophils % (A) 0.8 %; Eosinophils # (A) 0.07 X 10*3/uL (0.04-0.35); Eosinophils % (A) 0.7 %; HCT 30.5 % (39.6-50.0); HGB 8.1 g/dL (13.0-17.0); Lymphocytes # (A) 1.32 X 10*3/uL (0.90-5.00); Lymphocytes % (A) 12.8 %; MCH 20.4 pg (27.0-32.0); MCHC 26.6 g/dL (32.0-37.0); MCV 76.8 FL (80.0-97.0); Mean Platelet Volume 11.2 FL (9.5-12.2); Monocytes # (A) 1.26 X 10*3/uL (0.20-1.00); Monocytes % (A) 12.2 %; NRBC Per 100 WBC 0 X 10*3/uL (0.00-0.01); Neutrophils # (A) 7.56 X 10*3/uL (1.80-7.70); Neutrophils % (A) 73.2 %; Platelet Count 217 X 10*3/uL (140-440); RBC 3.97 X 10*6/uL (4.40-5.60); RDW 21.5 % (11.5-14.5); WBC 10.32 X 10*3/uL (4.50-10.00)
[2024-01-01 10:52] LABS: BUN/Creat Ratio 26.25 Ratio (12.00-20.00); Blood Urea Nitrogen 31.5 mg/dL (9.0-27.0); Chloride 101 mmol/L (96-109); Glucose 129 mg/dL (70-110); Potassium 4.8 mmol/L (3.5-5.5); Sodium 139 mmol/L (135-145)
[2024-01-01 10:53] LABS: ALT <5 U/L (10-49); AST 11 U/L (14-35); Albumin/Globulin Ratio 0.97 Ratio (1.60-3.17); Alkaline Phosphatase 104 U/L (41-126); Calcium 8.5 mg/dL (8.7-10.3); Carbon Dioxide 28.1 mmol/L (21.6-31.8); Globulin 3.1 g/dL (1.6-3.3); Total Bilirubin <0.2 mg/dL (0.3-1.2); Total Protein 6.1 g/dL (6.2-8.2)
--- NOTE | 2024-01-01 10:54 | P.PN ---
Subjective HISTORY OF PRESENT ILLNESS: This is a 68-year-old male with a past medical history significant for diabetes, congestive heart failure, hypertension, hyperlipidemia, and CVA. Patient does not follow with a head usher at [facility]. We have been asked to see the patient in consultation for congestive heart failure. Patient examined at the bedside. Patient presented to the emergency room with a chief complaint of shortness of breath. The patient denies any chest pain or pressure. Patient was started on IV Lasix. He reports improvement in his shortness of breath this morning. Vital signs are stable. Patient states he was started on Eliquis after experiencing a CVA after receiving the COVID-vaccine. DIAGNOSTICS: - EKG reveals sinus mechanism with right bundle branch block. No signs of acute ischemia.. - Chest xray findings felt to reflect improved but persistent features of congestive heart failure. Infiltrates of other etiology not excluded. -Chest CT: Small to moderate-sized right greater than left pleural effusion consistent with fluid overload state. New right middle lobe masslike consolidation. Cannot exclude underlying neoplasm. Enlarging right hilar mass or adenopathy and mediastinal adenopathy consistent with neoplastic progression is noted. - Laboratory data: WBC 11.9. Hemoglobin 10.7. Platelet count 285. Sodium 138. Potassium 4.6. BUN 27. Creatinine 0.71. Troponin negative x 1. proBNP 2790. - Current home cardiac medications include Eliquis 5 mg daily, aspirin 81 mg daily, Lipitor 40 mg daily, Lasix 40 mg twice a day, atenolol 50 mg twice a day. - Most recent echocardiogram obtained in June 2022 revealed ejection fraction 55%, mild MR, and trace to mild TR 01/01/2024 Patient examined this morning at the bedside. Patient currently denies chest pain or pressure. He denies shortness of breath. He remains on IV Lasix 40 mg every 12 hours. Vital signs are stable. Echocardiogram completed revealing ejection fraction 50 to 55%, moderate concentric LVH, trace MR PHYSICAL EXAM: VITAL SIGNS: Reviewed. GENERAL: Well-developed in no acute distress. HEENT: Head is normocephalic. Pupils are equal, round. Sclerae anicteric. Mucous membranes of the mouth are moist. Neck supple. No JVD or thyromegaly LUNGS: Respirations even and unlabored. Lungs diminished with few crackles noted HEART: Regular rate and rhythm. S1 and S2 heard. ABDOMEN: Soft. Nondistended. Nontender. EXTREMITIES: Normal range of motion. No clubbing or cyanosis. Peripheral pulses intact. Trace bilateral lower extremity edema noted, improved from yesterday NEUROLOGIC: Awake and alert. Oriented x 3. ASSESSMENT: Acute anemia, etiology unclear, scheduled for cervical surgery which has been canceled due to anemia Shortness of breath Acute on chronic heart failure with preserved EF Small to moderate sized right greater than left pleural effusions New right middle lobe masslike consolidation, rule out underlying neoplasm Hypertension Hyperlipidemia History of TIA/CVA Diabetes Severe pulmonary hypertension PLAN: Eliquis discontinued yesterday as this is not indicated for patient Decrease IV Lasix to once daily dosing. Transition to oral dosing tomorrow. Continue additional cardiac medications No further inpatient recommendations from a cardiac standpoint We will sign off. Please reconsult if needed Nurse practitioner note has been reviewed by physician. Signing provider agrees with the documented findings, assessment, and plan of care documented by BARIATRIC PROGRAM COORDINATOR as a scribe. Objective - Vital Signs Vital signs: Vital Signs Temp 98.4 F 01/01/24 07:45 Pulse 68 01/01/24 08:34 Resp 19 01/01/24 07:45 BP 119/58 01/01/24 07:45 Pulse Ox 96 01/01/24 08:28 FiO2 Intake & Output 12/31/23 01/01/24 01/01/24 18:59 06:59 18:59 Intake Total 240 Output Total 750 400 Balance -750 -400 240 Intake: Oral 240 Output: Urine 750 400 Other: Voiding Method Urinal Urinal - Labs CBC & Chem 7: 01/01/24 06:58 12/31/23 06:12 Labs: Abnormal Lab Results - Last 24 Hours (Table) 12/31/23 12/31/23 12/31/23 Range/Units 06:12 06:12 06:12 WBC 10.93 H (4.50-10.00) X 10*3/uL RBC 4.16 L (4.40-5.60) X 10*6/uL Hgb 8.4 L (13.0-17.0) g/dL Hct 31.3 L (39.6-50.0) % MCV 75.2 L (80.0-97.0) FL MCH 20.2 L (27.0-32.0) pg MCHC 26.8 L (32.0-37.0) g/dL RDW 21.6 H (11.5-14.5) % Immature Gran # 0.06 H (0.00-0.04) X 10*3/uL Neutrophils # 8.60 H (1.80-7.70) X 10*3/uL Monocytes # 1.22 H (0.20-1.00) X 10*3/uL Eosinophils # 0.03 L (0.04-0.35) X 10*3/uL BUN 29.8 H (9.0-27.0) mg/dL BUN/Creatinine Ratio 27.09 H (12.00-20.00) Ratio Glucose 187 H (70-110) mg/dL POC Glucose (mg/dL) (70-110) mg/dL Calcium 8.4 L (8.7-10.3) mg/dL Total Bilirubin <0.2 L (0.3-1.2) mg/dL AST 7 L (14-35) U/L ALT 5 L (10-49) U/L Total Protein 5.9 L (6.2-8.2) g/dL Albumin 3.1 L (3.8-4.9) g/dL Albumin/Globulin Ratio 1.11 L (1.60-3.17) Ratio Procalcitonin 0.10 H (0.02-0.09) ng/mL 12/31/23 12/31/23 12/31/23 Range/Units 12:04 16:31 20:36 WBC (4.50-10.00) X 10*3/uL RBC (4.40-5.60) X 10*6/uL Hgb (13.0-17.0) g/dL Hct (39.6-50.0) % MCV (80.0-97.0) FL MCH (27.0-32.0) pg MCHC (32.0-37.0) g/dL RDW (11.5-14.5) % Immature Gran # (0.00-0.04) X 10*3/uL Neutrophils # (1.80-7.70) X 10*3/uL Monocytes # (0.20-1.00) X 10*3/uL Eosinophils # (0.04-0.35) X 10*3/uL BUN (9.0-27.0) mg/dL BUN/Creatinine Ratio (12.00-20.00) Ratio Glucose (70-110) mg/dL POC Glucose (mg/dL) 174 H 224 H 162 H (70-110) mg/dL Calcium (8.7-10.3) mg/dL Total Bilirubin (0.3-1.2) mg/dL AST (14-35) U/L ALT (10-49) U/L Total Protein (6.2-8.2) g/dL Albumin (3.8-4.9) g/dL Albumin/Globulin Ratio (1.60-3.17) Ratio Procalcitonin (0.02-0.09) ng/mL 01/01/24 01/01/24 Range/Units 05:41 06:58 WBC 10.32 H (4.50-10.00) X 10*3/uL RBC 3.97 L (4.40-5.60) X 10*6/uL Hgb 8.1 L (13.0-17.0) g/dL Hct 30.5 L (39.6-50.0) % MCV 76.8 L (80.0-97.0) FL MCH 20.4 L (27.0-32.0) pg MCHC 26.6 L (32.0-37.0) g/dL RDW 21.5 H (11.5-14.5) % Immature Gran # (0.00-0.04) X 10*3/uL Neutrophils # (1.80-7.70) X 10*3/uL Monocytes # 1.26 H (0.20-1.00) X 10*3/uL Eosinophils # (0.04-0.35) X 10*3/uL BUN (9.0-27.0) mg/dL BUN/Creatinine Ratio (12.00-20.00) Ratio Glucose (70-110) mg/dL POC Glucose (mg/dL) 160 H (70-110) mg/dL Calcium (8.7-10.3) mg/dL Total Bilirubin (0.3-1.2) mg/dL AST (14-35) U/L ALT (10-49) U/L Total Protein (6.2-8.2) g/dL Albumin (3.8-4.9) g/dL Albumin/Globulin Ratio (1.60-3.17) Ratio Procalcitonin (0.02-0.09) ng/mL Microbiology - Last 24 Hours (Table) 12/31/23 00:45 Urine Culture - Preliminary Urine,Voided Gram Neg Bacilli
--- NOTE | 2024-01-01 11:13 | CDI ---
Documentation Clarification Form Date: 01/01/2024 10:55 AM From: Tanisha Lazar RN CCDS Phone: [phone] Admit Date: 12/30/2023 04:20:00 PM Patient Name: Emre Borrego Visit Number: [id number] Discharge Date: ATTENTION: The Clinical Documentation Specialists (CDI) and [facility] Coding Staff appreciate your assistance in clarifying documentation. Please respond to the clarification below the line at the bottom and electronically sign. The CDI & [facility] Coding staff will review the response and follow-up if needed. Please note: Queries are made part of the Legal Health Record. If you have any questions, please contact the author of this message via ITS. Dr. Jeremy Atkinson Sepsis is documented 12/29, H&P which may lack sufficient clinical evidence/support in the medical record. Additional clarification is requested. History/Risk Factors: 68-year-old male presents to the ED with severe low hemoglobin of 8 and feeling weak, fatigued and unable to ambulate. His legs are swollen diffusely and short of breath all the time. Medical History: COPD, CVA, TIA, DM and HTN. 12/29, H&P. Clinical Indicators: VSS, 12/29: B/P 144/74, HR 78, Temp 98.2F Oral, RR 24, [id number]% ra BMI 25.1kg LAB, 12/29: Wbc 11.9; Neutrophils 9.4; BNP 2790 UA, 12/29: Light yellow, Cloudy, Protein 1+, Nitrate positive, Leukocyte esterase moderate, RBC 2, Wbc 13, Bacteria Moderate, and Hyaline casts 4, Mucus Occasional CXR, 12/29: Findings felt to reflect improved but persistent features of congestive failure. ID, Consult: Patient presented to hospital with generalized weakness which is likely multifactorial patient did have some urinary symptoms positive UA concerning for symptomatic UTI with a last urine culture positive for Klebsiella that was intermediate to Unasyn. Treatment: 12/30 12/30 Ampicillin Sodium/Sulbactam Sodium 1.5gm 50mls @ 100mls/hr IVPB Q8HR HAROON; 12/30 Ceftriaxone Sodium 2gm Sodium Chloride 50mls @ 100mls/hr IVPB Q24H After work up and study, please clarify which diagnosis is most appropriate? [ ] Sepsis ruled out [ ] Sepsis treated prophylactically [ ] Sepsis is a valid diagnosis as evidence by the following: (Please add rationale): [ ] Other, please specify [ ] Unable to determine SIRS Criteria: 2 or more of the following may indicate SIRS Temperature < 96.8F (36C) or > 101.0F (38.3C) Heart Rate > 90 bpm Respiratory Rate > 20 breaths/min or PaCO2 < 32 mmHg White Blood Cell Count > 12,000 or < 4,000 cells/mm3 or > 10% bands (Template Last Reviewed: September 2023) IZAIAH
[2024-01-01 11:34] LABS: Glucose,Whole Blood 161 mg/dL (70-110)
--- NOTE | 2024-01-01 13:20 | P.GSCN ---
History of Present Illness Consult date: 01/01/24 History of present illness: CHIEF COMPLAINT: Weakness HISTORY OF PRESENT ILLNESS: This is a 68-year-old male who presented with weakness, difficulty ambulating lower extremity edema and shortness of breath. He has been diagnosed with a acute CHF exacerbation and is on IV Lasix. Patient was also noted to have a low hemoglobin outpatient. Hemoglobin 10.7 on admissio n is now down to 8.1. Patient's never had a EGD or colonoscopy before. He denies any blood in his stools or any melanotic stools. He had been on Eliquis outpatient. Cardiology has now stopped the Eliquis. Last dose of Eliquis was December 30. Patient does report being on oxygen at home usually is at 2.5 L. Currently at 4 L. PAST MEDICAL HISTORY: COPD, TIA, Diabetes Mellitus, Hypertension, Musculoskeletal Disorder PAST SURGICAL HISTORY: See below MEDICATIONS: See below ALLERGIES: See below SOCIAL HISTORY: No illicit drug use. Nicotine dependence REVIEW OF SYSTEMS: CONSTITUTIONAL: Denies fever or chills. HEENT: Denies blurred vision, vision changes, or eye pain. Denies hemoptysis CARDIOVASCULAR: Denies chest pain or pressure. RESPIRATORY: No shortness of breath. GASTROINTESTINAL: See HPI for pertinent findings HEMATOLOGIC: Denies bleeding disorders. GENITOURINARY: Denies any blood in urine or increased urinary frequency. SKIN: Denies pruitis. Denies rash. PHYSICAL EXAM: VITAL SIGNS: Reviewed GENERAL: Well-developed in no acute distress. HEENT: No sclera icterus. Extraocular movements grossly intact. Moist buccal mucosa. Head is atraumatic, normocephalic. No nasal drainage. ABDOMEN: Soft. Nondistended. nontender NEUROLOGIC: Alert and oriented. Cranial nerves II through XII grossly intact. LABORATORY DATA: WBC 10.32 Hgb 8.1 platelets 217 Sodium 139 potassium 4.8 creatinine 1.2 IMAGING: CT chest small to moderate size right greater than left pleural effusions consistent with fluid overload state. New right middle lobe masslike consolidation. Cannot exclude underlying neoplasm. Enlarging right hilar mass or adenopathy and mediastinal adenopathy consistent with neoplastic progression ASSESSMENT: 1. Anemia. No active bleeding reported 2. Masslike consolidation in right middle lobe also right and enlarging right hilar mass or adenopathy and mediastinal adenopathy noted on CT 3. Nicotine dependence PLAN: -Patient scheduled for EGD and colonoscopy on Thursday with Dr. Knutson -Continue to monitor hemoglobin -Agree with oncology and pulmonary consult Physician Financial Operations Consultant note has been reviewed by physician. Signing provider agrees with the documented findings, assessment, and plan of care. Past Medical History Past Medical History: COPD, CVA/TIA, Diabetes Mellitus, Hypertension, Musculoskeletal Disorder Additional Past Medical History / Comment(s): Hx. "mini stroke after 2nd covid shot", states has been on blood thinners since TIA 2020, hx. fall last 2021 that injured back, frequent falls History of Any Multi-Drug Resistant Organisms: None Reported Past Surgical History: Hernia Repair Additional Past Surgical History / Comment(s): Excision L Facial lipoma, repair hiatal hernia, laminectomy, Past Anesthesia/Blood Transfusion Reactions: No Reported Reaction Past Psychological History: No Psychological Hx Reported Additional Psychological History / Comment(s): Pt is currently staying with his exwife and daughter. Pt states he lives in [place] but is stuck here right now because of everything going on medically Smoking Status: Current every day smoker Past Alcohol Use History: None Reported Additional Past Alcohol Use History / Comment(s): Pt states he use to drink about 20 years ago, quit smoking 09/2022, was 2ppd since teens Past Drug Use History: None Reported - Past Family History Mother Family Medical History: Cancer Additional Family Medical History / Comment(s): Mother of lung cancer. Father History Unknown: Yes Medications and Allergies Home Medications Medication Instructions Recorded Confirmed Type Aspirin [Adult Low Dose Aspirin EC] 81 mg PO DAILY 04/15/22 12/30/23 History Atorvastatin [Lipitor] 40 mg PO DAILY 04/15/22 12/30/23 History glyBURIDE [Diabeta] 5 mg PO BID 04/15/22 12/30/23 History Gabapentin 800 mg PO QID 06/17/22 12/30/23 History HYDROcodone/APAP 5-325MG [[place] 1 tab PO BID 12/17/22 12/30/23 History 5-325] Apixaban [Eliquis] 5 mg PO DAILY 12/30/23 12/30/23 History Budesonide [Pulmicort] 0.5 mg INHALATION RT-BID 12/30/23 12/30/23 History Furosemide [Lasix] 40 mg PO BID 12/30/23 12/30/23 History Ipratropium-Albuterol Nebulize 3 ml INHALATION RT-TID 12/30/23 12/30/23 History [Duoneb 0.5 mg-3 mg/3 ml Soln] Montelukast [Singulair] 10 mg PO DAILY 12/30/23 12/30/23 History Pioglitazone [Actos] 15 mg PO DIRECTED 12/30/23 12/30/23 History Repaglinide [Prandin] 1 mg PO TID 12/30/23 12/30/23 History atenoloL [Tenormin] 50 mg PO BID 12/30/23 12/30/23 History Allergies Allergy/AdvReac Type Severity Reaction Status Date / Time No Known Allergies Allergy Verified 12/30/23 12:50 Surgical - Exam Vital Signs Temp Pulse Resp BP Pulse Ox 98.2 F 78 24 144/74 96 12/30/23 12:48 12/30/23 12:48 12/30/23 12:48 12/30/23 12:48 12/30/23 12:48 Results - Labs 01/01/24 06:58 01/01/24 06:58 Abnormal Lab Results - Last 24 Hours (Table) 12/31/23 12/31/23 12/31/23 Range/Units 12:04 16:31 20:36 WBC (4.50-10.00) X 10*3/uL RBC (4.40-5.60) X 10*6/uL Hgb (13.0-17.0) g/dL Hct (39.6-50.0) % MCV (80.0-97.0) FL MCH (27.0-32.0) pg MCHC (32.0-37.0) g/dL RDW (11.5-14.5) % Monocytes # (0.20-1.00) X 10*3/uL BUN (9.0-27.0) mg/dL BUN/Creatinine Ratio (12.00-20.00) Ratio Glucose (70-110) mg/dL POC Glucose (mg/dL) 174 H 224 H 162 H (70-110) mg/dL Calcium (8.7-10.3) mg/dL Total Bilirubin (0.3-1.2) mg/dL AST (14-35) U/L ALT (10-49) U/L Total Protein (6.2-8.2) g/dL Albumin (3.8-4.9) g/dL Albumin/Globulin Ratio (1.60-3.17) Ratio 01/01/24 01/01/24 01/01/24 Range/Units 05:41 06:58 06:58 WBC 10.32 H (4.50-10.00) X 10*3/uL RBC 3.97 L (4.40-5.60) X 10*6/uL Hgb 8.1 L (13.0-17.0) g/dL Hct 30.5 L (39.6-50.0) % MCV 76.8 L (80.0-97.0) FL MCH 20.4 L (27.0-32.0) pg MCHC 26.6 L (32.0-37.0) g/dL RDW 21.5 H (11.5-14.5) % Monocytes # 1.26 H (0.20-1.00) X 10*3/uL BUN 31.5 H (9.0-27.0) mg/dL BUN/Creatinine Ratio 26.25 H (12.00-20.00) Ratio Glucose 129 H (70-110) mg/dL POC Glucose (mg/dL) 160 H (70-110) mg/dL Calcium 8.5 L (8.7-10.3) mg/dL Total Bilirubin <0.2 L (0.3-1.2) mg/dL AST 11 L (14-35) U/L ALT <5 L (10-49) U/L Total Protein 6.1 L (6.2-8.2) g/dL Albumin 3.0 L (3.8-4.9) g/dL Albumin/Globulin Ratio 0.97 L (1.60-3.17) Ratio 01/01/24 Range/Units 11:33 WBC (4.50-10.00) X 10*3/uL RBC (4.40-5.60) X 10*6/uL Hgb (13.0-17.0) g/dL Hct (39.6-50.0) % MCV (80.0-97.0) FL MCH (27.0-32.0) pg MCHC (32.0-37.0) g/dL RDW (11.5-14.5) % Monocytes # (0.20-1.00) X 10*3/uL BUN (9.0-27.0) mg/dL BUN/Creatinine Ratio (12.00-20.00) Ratio Glucose (70-110) mg/dL POC Glucose (mg/dL) 161 H (70-110) mg/dL Calcium (8.7-10.3) mg/dL Total Bilirubin (0.3-1.2) mg/dL AST (14-35) U/L ALT (10-49) U/L Total Protein (6.2-8.2) g/dL Albumin (3.8-4.9) g/dL Albumin/Globulin Ratio (1.60-3.17) Ratio Microbiology - Last 24 Hours (Table) 12/31/23 00:45 Urine Culture - Preliminary Urine,Voided Gram Neg Bacilli Diabetes panel 01/01/24 Range/Units 06:58 Sodium 139 (135-145) mmol/L Potassium 4.8 (3.5-5.5) mmol/L Chloride 101 (96-109) mmol/L Carbon Dioxide 28.1 (21.6-31.8) mmol/L BUN 31.5 H (9.0-27.0) mg/dL Creatinine 1.2 (0.6-1.5) mg/dL Glucose 129 H (70-110) mg/dL Calcium 8.5 L (8.7-10.3) mg/dL AST 11 L (14-35) U/L ALT <5 L (10-49) U/L Alkaline Phosphatase 104 (41-126) U/L Total Protein 6.1 L (6.2-8.2) g/dL Albumin 3.0 L (3.8-4.9) g/dL Thyroid panel 12/31/23 Range/Units 06:12 TSH 2.750 (0.350-5.500) UIU/ML Calcium panel 01/01/24 Range/Units 06:58 Calcium 8.5 L (8.7-10.3) mg/dL Albumin 3.0 L (3.8-4.9) g/dL Pituitary panel 12/31/23 01/01/24 Range/Units 06:12 06:58 Sodium 139 (135-145) mmol/L Potassium 4.8 (3.5-5.5) mmol/L Chloride 101 (96-109) mmol/L Carbon Dioxide 28.1 (21.6-31.8) mmol/L BUN 31.5 H (9.0-27.0) mg/dL Creatinine 1.2 (0.6-1.5) mg/dL Glucose 129 H (70-110) mg/dL Calcium 8.5 L (8.7-10.3) mg/dL TSH 2.750 (0.350-5.500) UIU/ML Adrenal panel 01/01/24 Range/Units 06:58 Sodium 139 (135-145) mmol/L Potassium 4.8 (3.5-5.5) mmol/L Chloride 101 (96-109) mmol/L Carbon Dioxide 28.1 (21.6-31.8) mmol/L BUN 31.5 H (9.0-27.0) mg/dL Creatinine 1.2 (0.6-1.5) mg/dL Glucose 129 H (70-110) mg/dL Calcium 8.5 L (8.7-10.3) mg/dL Total Bilirubin <0.2 L (0.3-1.2) mg/dL AST 11 L (14-35) U/L ALT <5 L (10-49) U/L Alkaline Phosphatase 104 (41-126) U/L Total Protein 6.1 L (6.2-8.2) g/dL Albumin 3.0 L (3.8-4.9) g/dL
[2024-01-01] MEDS: MIDODRINE 5 MG TAB PO SCH (14:43)
--- NOTE | 2024-01-01 14:56 | P.CNPUL ---
History of Present Illness Consult date: 01/01/24 Reason for consult: dyspnea, COPD, hypoxemia, lung mass, abnormal CXR/CT Chief complaint: generalized weakness and lower extremity swelling History of present illness: 68-year-old male with extensive history of smoking and nicotine use chronic hypoxic respiratory failure uses 2-1/2 L oxygen at home, admitted into the [facility] with generalized weakness with history of intermittent fall patient has extensive swelling of the lower extremity with chronic skin changes and early cellulitis. Patient had a chest x-ray which shows bilateral small pleural effusion more so on the right side compared left side and CHF-like finding, however computed tomography scan of the chest revealed significant finding of right hilar mass/lymphadenopathy about 5 x 3 cm in size. Patient expresses that he has been evaluated at [facility] had a biopsy done about a year ago he was recommended for chemo and radiation therapy but patient couldn't find transportation and did not follow through.he has been on direct oral anticoagula nt with the last was yesterday. Due to generalized weakness patient was evaluated in primary care service also noted to be anemic advised to be admitted to hospital patient fact for scheduled for C-spine surgery which has been postponed. 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 Currently patient is on bronchodilators, IV Rocephin,labs are significant for white cells are 10.3, hemoglobin and hematocrit 11/30 MCV 76, when necessary is 31 creatinine 1.2 glucose 129urine culture positive for gram-negative rods patient has a history of Klebsiella oxytocin in the past Review of Systems All systems: negative Past Medical History Past Medical History: COPD, CVA/TIA, Diabetes Mellitus, Hypertension, Musculoskeletal Disorder Additional Past Medical History / Comment(s): Hx. "mini stroke after 2nd covid shot", states has been on blood thinners since TIA 2020, hx. fall last 2021 that injured back, frequent falls History of Any Multi-Drug Resistant Organisms: None Reported Past Surgical History: Hernia Repair Additional Past Surgical History / Comment(s): Excision L Facial lipoma, repair hiatal hernia, laminectomy, Past Anesthesia/Blood Transfusion Reactions: No Reported Reaction Past Psychological History: No Psychological Hx Reported Additional Psychological History / Comment(s): Pt is currently staying with his exwife and daughter. Pt states he lives in [place] but is stuck here right now because of everything going on medically Smoking Status: Current every day smoker Past Alcohol Use History: None Reported Additional Past Alcohol Use History / Comment(s): Pt states he use to drink about 20 years ago, quit smoking 09/2022, was 2ppd since teens Past Drug Use History: None Reported - Past Family History Mother Family Medical History: Cancer Additional Family Medical History / Comment(s): Mother of lung cancer. Father History Unknown: Yes Medications and Allergies Home Medications Medication Instructions Recorded Confirmed Type Aspirin [Adult Low Dose Aspirin EC] 81 mg PO DAILY 04/15/22 12/30/23 History Atorvastatin [Lipitor] 40 mg PO DAILY 04/15/22 12/30/23 History glyBURIDE [Diabeta] 5 mg PO BID 04/15/22 12/30/23 History Gabapentin 800 mg PO QID 06/17/22 12/30/23 History HYDROcodone/APAP 5-325MG [[place] 1 tab PO BID 12/17/22 12/30/23 History 5-325] Apixaban [Eliquis] 5 mg PO DAILY 12/30/23 12/30/23 History Budesonide [Pulmicort] 0.5 mg INHALATION RT-BID 12/30/23 12/30/23 History Furosemide [Lasix] 40 mg PO BID 12/30/23 12/30/23 History Ipratropium-Albuterol Nebulize 3 ml INHALATION RT-TID 12/30/23 12/30/23 History [Duoneb 0.5 mg-3 mg/3 ml Soln] Montelukast [Singulair] 10 mg PO DAILY 12/30/23 12/30/23 History Pioglitazone [Actos] 15 mg PO DIRECTED 12/30/23 12/30/23 History Repaglinide [Prandin] 1 mg PO TID 12/30/23 12/30/23 History atenoloL [Tenormin] 50 mg PO BID 12/30/23 12/30/23 History Allergies Allergy/AdvReac Type Severity Reaction Status Date / Time No Known Allergies Allergy Verified 12/30/23 12:50 Physical Exam Vitals: Vital Signs Temp Pulse Pulse Resp BP Pulse Ox 01/01/24 11:31 56 L 01/01/24 08:34 68 01/01/24 08:28 64 96 01/01/24 07:45 98.4 F 54 L 19 119/58 96 01/01/24 00:59 98.6 F 75 17 106/52 92 L 12/31/23 19:22 98.1 F 66 16 106/52 93 L Intake and Output 12/31/23 01/01/24 01/01/24 22:59 06:59 14:59 Intake Total 240 Output Total 400 400 Balance -400 -400 240 Intake: Oral 240 Output: Urine 400 400 Other: Voiding Method Urinal - Constitutional General appearance: average body habitus, cooperative, disheveled - EENT Eyes: EOMI, PERRLA ENT: normal oropharynx Ears: bilateral: normal - Neck Neck: normal ROM Carotids: bilateral: upstroke normal Thyroid: bilateral: normal size - Respiratory Respiratory: right: diminished, dullness, bilateral: rales - Cardiovascular Rhythm: regular Heart sounds: normal: S1, S2 - Gastrointestinal General gastrointestinal: normal bowel sounds, soft - Integumentary bilateral +3 edema of lower extremity along with the chronic skin changes earlier erythema suggestive of developing cellulitis - Neurologic Neurologic: CNII-XII intact - Musculoskeletal Musculoskeletal: generalized weakness, strength equal bilaterally - Psychiatric Psychiatric: A&O x's 3, appropriate affect, intact judgment & insight Results - Laboratory Findings CBC and BMP: 01/01/24 06:58 01/01/24 06:58 PT/INR, D-dimer PT 13.2 sec (10.0-12.5) H 12/30/23 13:35 INR 1.2 (<1.2) H 12/30/23 13:35 Abnormal lab findings: Abnormal Labs 12/30/23 12/30/23 12/30/23 13:13 13:19 13:35 WBC 11.9 H RBC Hgb 10.7 L Hct 38.1 L MCV 74.4 L MCH 20.9 L MCHC 28.1 L RDW 20.8 H Immature Gran # Neutrophils # 9.4 H Monocytes # Eosinophils # PT INR BUN BUN/Creatinine Ratio Glucose POC Glucose (mg/dL) 136 H Calcium Total Bilirubin AST ALT Total Protein Albumin Albumin/Globulin Ratio Procalcitonin Urine Protein 1+ H Ur Leukocyte Esterase Moderate H Urine WBC 13 H Urine Bacteria Moderate H Hyaline Casts 4 H Urine Mucus Occasional H 12/30/23 12/30/23 12/30/23 13:35 14:45 22:31 WBC RBC Hgb Hct MCV MCH MCHC RDW Immature Gran # Neutrophils # Monocytes # Eosinophils # PT 13.2 H INR 1.2 H BUN 27 H BUN/Creatinine Ratio Glucose 109 H POC Glucose (mg/dL) 185 H Calcium Total Bilirubin AST ALT Total Protein Albumin 3.3 L Albumin/Globulin Ratio Procalcitonin Urine Protein Ur Leukocyte Esterase Urine WBC Urine Bacteria Hyaline Casts Urine Mucus 12/31/23 12/31/23 12/31/23 06:12 06:12 06:12 WBC 10.93 H RBC 4.16 L Hgb 8.4 L Hct 31.3 L MCV 75.2 L MCH 20.2 L MCHC 26.8 L RDW 21.6 H Immature Gran # 0.06 H Neutrophils # 8.60 H Monocytes # 1.22 H Eosinophils # 0.03 L PT INR BUN 29.8 H BUN/Creatinine Ratio 27.09 H Glucose 187 H POC Glucose (mg/dL) Calcium 8.4 L Total Bilirubin <0.2 L AST 7 L ALT 5 L Total Protein 5.9 L Albumin 3.1 L Albumin/Globulin Ratio 1.11 L Procalcitonin 0.10 H Urine Protein Ur Leukocyte Esterase Urine WBC Urine Bacteria Hyaline Casts Urine Mucus 12/31/23 12/31/23 12/31/23 06:42 12:04 16:31 WBC RBC Hgb Hct MCV MCH MCHC RDW Immature Gran # Neutrophils # Monocytes # Eosinophils # PT INR BUN BUN/Creatinine Ratio Glucose POC Glucose (mg/dL) 201 H 174 H 224 H Calcium Total Bilirubin AST ALT Total Protein Albumin Albumin/Globulin Ratio Procalcitonin Urine Protein Ur Leukocyte Esterase Urine WBC Urine Bacteria Hyaline Casts Urine Mucus 12/31/23 01/01/24 01/01/24 20:36 05:41 06:58 WBC 10.32 H RBC 3.97 L Hgb 8.1 L Hct 30.5 L MCV 76.8 L MCH 20.4 L MCHC 26.6 L RDW 21.5 H Immature Gran # Neutrophils # Monocytes # 1.26 H Eosinophils # PT INR BUN BUN/Creatinine Ratio Glucose POC Glucose (mg/dL) 162 H 160 H Calcium Total Bilirubin AST ALT Total Protein Albumin Albumin/Globulin Ratio Procalcitonin Urine Protein Ur Leukocyte Esterase Urine WBC Urine Bacteria Hyaline Casts Urine Mucus 01/01/24 01/01/24 06:58 11:33 WBC RBC Hgb Hct MCV MCH MCHC RDW Immature Gran # Neutrophils # Monocytes # Eosinophils # PT INR BUN 31.5 H BUN/Creatinine Ratio 26.25 H Glucose 129 H POC Glucose (mg/dL) 161 H Calcium 8.5 L Total Bilirubin <0.2 L AST 11 L ALT <5 L Total Protein 6.1 L Albumin 3.0 L Albumin/Globulin Ratio 0.97 L Procalcitonin Urine Protein Ur Leukocyte Esterase Urine WBC Urine Bacteria Hyaline Casts Urine Mucus - Diagnostic Findings Chest x-ray: report reviewed, image reviewed CT scan - chest: report reviewed, image reviewed (chest x-ray significant for a CHF-like changes along with cardiomegaly and bilateral pleural effusion, c omputed tomography scan of the chest moderate size right-sided effusion with a small left-sided effusion masslike consolidation in right middle lobe, and mediastinum prominent right hilar mass/dustin) Assessment and Plan Assessment: right middle lobe masslike consolidation with air bronchogram differential diagnosis pneumonia versus postobstructive pneumonia right parahilar mass 5 x 3.4 cm in size likely neoplasm, however aspart patient diagnosed as a cancer and [place] [facility] about a year ago, he had a bronchoscopy and biopsy, recommended for radiation and chemotherapy but patient did not follow throughwill obtain path report computed tomography scan reports and consult oncology Acute on chronic hypoxic respiratory failure due to baseline COPD congestive heart failure with acute exacerbation congestive heart failure with acute exacerbation, on diuresis Hypotension related to above as well as diuresis, will initiate patient on low- dose midodrine UTI secondary to Klebsiella most likely, on IV Rocephin follow-up on culture and sensitivity reports type 2 diabetes mellitus on short and long-acting insulin Plan: as above Time with Patient: Greater than 30
--- NOTE | 2024-01-01 15:36 | P.CONS ---
History of Present Illness - Reason for Consult Consult date: 01/01/24 Microcytic hypochromic anemia - Chief Complaint Neck pain - History of Present Illness Mr. Borrego is a 68-year-old gentleman with a past medical history significant for CVA as well as possible lung cancer for whom we are consulted regarding microcytic hypochromic anemia. History obtained from Mr. Borrego, who is a poor historian. He notes he was admitted for surgery on the cervical spine, which was ultimately deferred due to finding of microcytic hypochromic anemia. Labs on admission were notable for hemoglobin 10.7 (MCV 74.4, MCH 20.9), WBC 11.9 (ANC 9.4), platelets 285. TSH during his admission was noted to be normal. proBNP was elevated at 2790 with chest x-ray revealing pulmonary venous congestion with interstitial and alveolar edema consistent with congestive heart failure. He was started on ceftriaxone 2 g daily as well as Lasix 40 mg IV twice daily. In addition, he has received IV iron beginning on 12/30/2023. Review of his labs note progressive microcytic hypochromic anemia since December 2022. He was on Eliquis prior to admission for unclear reasons and has since been discontinued. He notes having taken Excedrin intermittently for headaches in addition to Eliquis. He notes having had workup for lung cancer performed at [facility], but had difficulty with transportation and was not able to go to and from appointments. He thinks he has had a biopsy, but is unsure. He did seem to question whether he actually had cancer or not. Prior workup performed at [facility] September 2022 seem to indicate possible metastatic disease at that time. He has had no treatments for lung cancer. Review of Systems 14 point review of symptoms conducted with pertinent positives and negatives as noted per HPI Past Medical History Past Medical History: COPD, CVA/TIA, Diabetes Mellitus, Hypertension, Musculoskeletal Disorder Additional Past Medical History / Comment(s): Hx. "mini stroke after 2nd covid shot", states has been on blood thinners since 2020, hx. fall last 2021 that injured back, frequent falls History of Any Multi-Drug Resistant Organisms: None Reported Past Surgical History: Hernia Repair Additional Past Surgical History / Comment(s): Excision L Facial lipoma, repair hiatal hernia, laminectomy, Past Anesthesia/Blood Transfusion Reactions: No Reported Reaction Past Psychological History: No Psychological Hx Reported Additional Psychological History / Comment(s): Pt is currently staying with his exwife and daughter. Pt states he lives in [place] but is stuck here right now because of everything going on medically Smoking Status: Current every day smoker Past Alcohol Use History: None Reported Additional Past Alcohol Use History / Comment(s): Pt states he use to drink about 20 years ago, quit smoking 09/2022, was 2ppd since teens Past Drug Use History: None Reported - Past Family History Mother Family Medical History: Cancer Additional Family Medical History / Comment(s): Mother of lung cancer. Father History Unknown: Yes Medications and Allergies Home Medications Medication Instructions Recorded Confirmed Type Aspirin [Adult Low Dose Aspirin EC] 81 mg PO DAILY 04/15/22 12/30/23 History Atorvastatin [Lipitor] 40 mg PO DAILY 04/15/22 12/30/23 History glyBURIDE [Diabeta] 5 mg PO BID 04/15/22 12/30/23 History Gabapentin 800 mg PO QID 06/17/22 12/30/23 History HYDROcodone/APAP 5-325MG [[place] 1 tab PO BID 12/17/22 12/30/23 History 5-325] Apixaban [Eliquis] 5 mg PO DAILY 12/30/23 12/30/23 History Budesonide [Pulmicort] 0.5 mg INHALATION RT-BID 12/30/23 12/30/23 History Furosemide [Lasix] 40 mg PO BID 12/30/23 12/30/23 History Ipratropium-Albuterol Nebulize 3 ml INHALATION RT-TID 12/30/23 12/30/23 History [Duoneb 0.5 mg-3 mg/3 ml Soln] Montelukast [Singulair] 10 mg PO DAILY 12/30/23 12/30/23 History Pioglitazone [Actos] 15 mg PO DIRECTED 12/30/23 12/30/23 History Repaglinide [Prandin] 1 mg PO TID 12/30/23 12/30/23 History atenoloL [Tenormin] 50 mg PO BID 12/30/23 12/30/23 History Allergies Allergy/AdvReac Type Severity Reaction Status Date / Time No Known Allergies Allergy Verified 12/30/23 12:50 Physical Exam Vitals: Vital Signs Temp Pulse Pulse Resp BP Pulse Ox 01/01/24 14:00 97.6 F 71 18 89/43 91 L 01/01/24 11:31 56 L 01/01/24 08:34 68 01/01/24 08:28 64 96 01/01/24 07:45 98.4 F 54 L 19 119/58 96 01/01/24 00:59 98.6 F 75 17 106/52 92 L 12/31/23 19:22 98.1 F 66 16 106/52 93 L Intake and Output 01/01/24 01/01/24 01/01/24 06:59 14:59 22:59 Intake Total 240 Output Total 400 Balance -400 240 Intake: Oral 240 Output: Urine 400 - Constitutional General appearance: cooperative, no acute distress - EENT Eyes: EOMI - Respiratory Respiratory: bilateral: other ( Inspiratory crackles bilaterally) - Cardiovascular Abnormal Heart Sounds: S3 Gallop - Gastrointestinal General gastrointestinal: distended, soft, no tenderness - Integumentary Integumentary: pale - Neurologic Slurred speech Neurologic: CNII-XII intact Results CBC & Chem 7: 01/01/24 06:58 01/01/24 06:58 Labs: Abnormal Lab Results - Last 24 Hours (Table) 12/31/23 12/31/23 01/01/24 Range/Units 16:31 20:36 05:41 WBC (4.50-10.00) X 10*3/uL RBC (4.40-5.60) X 10*6/uL Hgb (13.0-17.0) g/dL Hct (39.6-50.0) % MCV (80.0-97.0) FL MCH (27.0-32.0) pg MCHC (32.0-37.0) g/dL RDW (11.5-14.5) % Monocytes # (0.20-1.00) X 10*3/uL BUN (9.0-27.0) mg/dL BUN/Creatinine Ratio (12.00-20.00) Ratio Glucose (70-110) mg/dL POC Glucose (mg/dL) 224 H 162 H 160 H (70-110) mg/dL Calcium (8.7-10.3) mg/dL Total Bilirubin (0.3-1.2) mg/dL AST (14-35) U/L ALT (10-49) U/L Total Protein (6.2-8.2) g/dL Albumin (3.8-4.9) g/dL Albumin/Globulin Ratio (1.60-3.17) Ratio 01/01/24 01/01/24 01/01/24 Range/Units 06:58 06:58 11:33 WBC 10.32 H (4.50-10.00) X 10*3/uL RBC 3.97 L (4.40-5.60) X 10*6/uL Hgb 8.1 L (13.0-17.0) g/dL Hct 30.5 L (39.6-50.0) % MCV 76.8 L (80.0-97.0) FL MCH 20.4 L (27.0-32.0) pg MCHC 26.6 L (32.0-37.0) g/dL RDW 21.5 H (11.5-14.5) % Monocytes # 1.26 H (0.20-1.00) X 10*3/uL BUN 31.5 H (9.0-27.0) mg/dL BUN/Creatinine Ratio 26.25 H (12.00-20.00) Ratio Glucose 129 H (70-110) mg/dL POC Glucose (mg/dL) 161 H (70-110) mg/dL Calcium 8.5 L (8.7-10.3) mg/dL Total Bilirubin <0.2 L (0.3-1.2) mg/dL AST 11 L (14-35) U/L ALT <5 L (10-49) U/L Total Protein 6.1 L (6.2-8.2) g/dL Albumin 3.0 L (3.8-4.9) g/dL Albumin/Globulin Ratio 0.97 L (1.60-3.17) Ratio Microbiology - Last 24 Hours (Table) 12/31/23 00:45 Urine Culture - Preliminary Urine,Voided Gram Neg Bacilli Chest x-ray: report reviewed, image reviewed Assessment and Plan (1) Microcytic hypochromic anemia Current Visit: Yes Status: Acute Code(s): D50.9 - IRON DEFICIENCY ANEMIA, UNSPECIFIED SNOMED Code(s): 53586624 (2) Lung cancer Current Visit: No Status: Acute Priority: High Code(s): C34.90 - MALIGNANT NEOPLASM OF UNSP PART OF UNSP BRONCHUS OR LUNG SNOMED Code(s): 272009186 Plan: #Microcytic hypochromic anemia -Noted to be progressive over the past year with hemoglobin in December 2022 being around 13 -In addition to being on Eliquis for unclear reasons, he was also taking Excedrin intermittently for headaches -He likely has iron deficiency anemia secondary to microscopic GI blood loss -Iron studies, vitamin B12/methylmalonic acid, folic acid, and copper ordered -Already started on IV iron per primary team #Lung cancer -Prior studies at [facility] in September 2022 seem to indicate potential for metastatic lung cancer -He notes having had workup performed at [facility], including possible biopsy -He seems to be living with his girlfriend and [place], but has received care locally in [place] as many of his doctors are in this area -We did discuss that he could receive oncology care in [place], but is unclear if he would follow-up with this -Records from [facility] regarding any PET scans or pathology from biopsies would be helpful Jose Luis Ross MD
[2024-01-01 16:25] LABS: % Iron Saturation 9.32 (15.00-50.00); Ferritin 89.1 ng/mL (22.0-322.0)
[2024-01-01 16:50] LABS: Glucose,Whole Blood 170 mg/dL (70-110)
[2024-01-01 20:22] LABS: Glucose,Whole Blood 210 mg/dL (70-110)
[2024-01-02] MEDS: ACETAMINOPHEN TAB 325 MG TAB PO PRN (02:23)
--- NOTE | 2024-01-02 03:57 | PN ---
PROGRESS NOTE SUBJECTIVE: The patient is still weak and fatigued. He has large amounts of peripheral edema and swelling. He is on IV iron infusions to get his INR up. He stopped his blood thinners 8 days ago with Eliquis. He has not been on Eliquis for 8 days and his hemoglobin still dropped down without it. He is going to get EGD colonoscopy on Thursday. He may need some diuresis possibly, Zaroxolyn to get some third-spacing fluids off him. He does not have great urine output. He has microcytic hyperchromic anemia. Lung cancer, supposed to have cervical surgery, third-spacing of fluids. He has been on Eliquis for 8 days. He has a history of PE DVT as well as atrial fibrillation in the past. He has been off his blood thinner for 8 days. Continue with IV iron. He has small-cell lung cancer. He has not seen Oncology for months and months as he has not been able to get any transportation from where he is living. Continue current iron infusion and diuresis. PROGNOSIS: Guarded. MMODL / IJN: [id number] /
[2024-01-02 06:01] LABS: Glucose,Whole Blood 121 mg/dL (70-110)
[2024-01-02] MEDS: FUROSEMIDE 40 MG TAB PO SCH (08:41)
--- NOTE | 2024-01-02 09:30 | PN ---
PROGRESS NOTE SUBJECTIVE: A 68-year-old male, weakness, difficulty ambulating, shortness of breath. He came in with severe anemia. He wants to know if he can get cervical surgery. Started on IV Lasix for CHF. Hemoglobin with hemodilution went from 10.7 down to 8.1. He denies any blood in his stools or melenotic stools Eliquis. The patient is on oxygen 2.5 L, currently on 4 L. CAT scan is reviewed and I ordered. He has wheezes x4. OBJECTIVE: CARDIOVASCULAR: S1, S2. GENERAL: He looks weak and disheveled. ABDOMEN: Soft. NEUROLOGIC: Cranial nerves intact. CAT scan reviewed. He is going to get CAT scan. He is going to get EGD and colonoscopy on Thursday. He is going to get iron infusions. He has a history of small-cell cancer with worsening hilar masses, nicotine dependence, COPD. Prognosis guarded. Please see further orders. Monitor hemoglobin. Get scopes on Thursday. MMODL / IJN: [id number] /
[2024-01-02 11:22] LABS: Glucose,Whole Blood 169 mg/dL (70-110)
--- NOTE | 2024-01-02 11:46 | P.PN ---
Subjective Progress Note Date: 01/01/24 Principal diagnosis: Reason for follow-up is urinary tract infection Patient is a 68-year-old male with a past medical history significant for diabetes mellitus hypertension CVA TIA COPD current everyday smoker presenting to the hospital for evaluation of increased weakness and difficulty breathing, patient did have elevated white count did have a positive UA concer shahana for possible drug-resistant UTI prompting this consultation. Patient also have abnormal CT of the chest with masslike consolidation apparently has been diagnosed with the lung cancer last year as per discussion with the pulmonary. On today's evaluation that is 01/01/2024, the patient continues to be afebrile, the patient is on 5 L nasal cannula oxygen denies any chest pain or worsening cough complaining of pain to the neck and lower extremity no vomiting or diarrhea. Patient white count is down to 10.32, creatinine is 1.2 urine is growing gram- negative bacilli Objective - Vital Signs Vital signs: Vital Signs Temp 98.8 F 01/01/24 20:00 Pulse 71 01/01/24 20:00 Resp 18 01/01/24 20:00 BP 107/55 01/01/24 20:00 Pulse Ox 96 01/01/24 20:00 FiO2 Intake & Output 01/01/24 01/01/24 01/02/24 06:59 18:59 06:59 Intake Total 898 Output Total 400 800 Balance -400 898 -800 Intake: Intake, IV Titration 100 Amount Sodium Ferric Gluconat- 100 Sucrose 125 mg In Sodium Chloride 0.9% 100 ml @ 100 mls/hr IVPB DAILY [facility] Rx#:[id number] Oral 798 Output: Urine 400 800 Other: Voiding Method Urinal - Exam GENERAL DESCRIPTION: An elderly male lying in bed in no distress RESPIRATORY SYSTEM: Unlabored breathing , coarse breath sounds bilaterally HEART: S1 S2 regular rate and rhythm , ABDOMEN: Soft , no tenderness EXTREMITIES: No edema feet - Labs CBC & Chem 7: 01/01/24 06:58 01/01/24 06:58 Labs: Abnormal Lab Results - Last 24 Hours (Table) 01/01/24 01/01/24 01/01/24 Range/Units 05:41 06:58 06:58 WBC 10.32 H (4.50-10.00) X 10*3/uL RBC 3.97 L (4.40-5.60) X 10*6/uL Hgb 8.1 L (13.0-17.0) g/dL Hct 30.5 L (39.6-50.0) % MCV 76.8 L (80.0-97.0) FL MCH 20.4 L (27.0-32.0) pg MCHC 26.6 L (32.0-37.0) g/dL RDW 21.5 H (11.5-14.5) % Monocytes # 1.26 H (0.20-1.00) X 10*3/uL BUN 31.5 H (9.0-27.0) mg/dL BUN/Creatinine Ratio 26.25 H (12.00-20.00) Ratio Glucose 129 H (70-110) mg/dL POC Glucose (mg/dL) 160 H (70-110) mg/dL Calcium 8.5 L (8.7-10.3) mg/dL Iron (65-175) UG/DL % Saturation (15.00-50.00) Total Bilirubin <0.2 L (0.3-1.2) mg/dL AST 11 L (14-35) U/L ALT <5 L (10-49) U/L Total Protein 6.1 L (6.2-8.2) g/dL Albumin 3.0 L (3.8-4.9) g/dL Albumin/Globulin Ratio 0.97 L (1.60-3.17) Ratio 01/01/24 01/01/24 01/01/24 Range/Units 09:50 11:33 16:48 WBC (4.50-10.00) X 10*3/uL RBC (4.40-5.60) X 10*6/uL Hgb (13.0-17.0) g/dL Hct (39.6-50.0) % MCV (80.0-97.0) FL MCH (27.0-32.0) pg MCHC (32.0-37.0) g/dL RDW (11.5-14.5) % Monocytes # (0.20-1.00) X 10*3/uL BUN (9.0-27.0) mg/dL BUN/Creatinine Ratio (12.00-20.00) Ratio Glucose (70-110) mg/dL POC Glucose (mg/dL) 161 H 170 H (70-110) mg/dL Calcium (8.7-10.3) mg/dL Iron 30 L (65-175) UG/DL % Saturation 9.32 L (15.00-50.00) Total Bilirubin (0.3-1.2) mg/dL AST (14-35) U/L ALT (10-49) U/L Total Protein (6.2-8.2) g/dL Albumin (3.8-4.9) g/dL Albumin/Globulin Ratio (1.60-3.17) Ratio 01/01/24 Range/Units 20:21 WBC (4.50-10.00) X 10*3/uL RBC (4.40-5.60) X 10*6/uL Hgb (13.0-17.0) g/dL Hct (39.6-50.0) % MCV (80.0-97.0) FL MCH (27.0-32.0) pg MCHC (32.0-37.0) g/dL RDW (11.5-14.5) % Monocytes # (0.20-1.00) X 10*3/uL BUN (9.0-27.0) mg/dL BUN/Creatinine Ratio (12.00-20.00) Ratio Glucose (70-110) mg/dL POC Glucose (mg/dL) 210 H (70-110) mg/dL Calcium (8.7-10.3) mg/dL Iron (65-175) UG/DL % Saturation (15.00-50.00) Total Bilirubin (0.3-1.2) mg/dL AST (14-35) U/L ALT (10-49) U/L Total Protein (6.2-8.2) g/dL Albumin (3.8-4.9) g/dL Albumin/Globulin Ratio (1.60-3.17) Ratio Microbiology - Last 24 Hours (Table) 12/31/23 00:45 Urine Culture - Preliminary Urine,Voided Gram Neg Bacilli Assessment and Plan (1) Urinary tract infection Current Visit: Yes Status: Acute Code(s): N39.0 - URINARY TRACT INFECTION, SITE NOT SPECIFIED SNOMED Code(s): 43591995 Plan: 1patient presented to hospital with generalized weakness which is likely multifactorial patient did have some urinary symptoms positive UA concerning for symptomatic UTI with a last urine culture positive for Klebsiella that was intermediate to Unasyn 2-patient also have abnormal CT of the chest concerning for masslike consolidation and lymphadenopathy concerning for possible malignancy, in this patient who did have a diagnosis of lung cancer last year but did not have any follow-up pulmonary and oncology following the patient 3patient urine is growing gram-negative bacilli continue Rocephin 2 g daily while waiting for the culture to finalize Dictation was produced using [employer] dictation software. please excuse any grammatical, word or spelling errors. Time with Patient: Less than 30
[2024-01-02] MEDS: metOLazone 2.5 MG TAB PO SCH (13:49)
[2024-01-02 16:27] LABS: Glucose,Whole Blood 132 mg/dL (70-110)
--- NOTE | 2024-01-02 16:41 | P.PN ---
Subjective Progress Note Date: 01/02/24 Patient resting comfortably. He is talking tolerating crackers and peanut butter. No reports of abdominal pain. Denies any signs of bleeding including hematemesis or blood in stools. Abdomen: No peritonitis. Nontender. Musculoskeletal: Multiple necrosis along the toes for peripheral vascular occlusive disease. No present hair along the lower extremities. Labs: Hemoglobin down 2 g from 10.0-8.1, anemia Plan: 1. Upper and lower endoscopy for anemia of unclear etiology 2. GoLytely prep for bowel cleanse. 3. Start clear liquid diet tomorrow Objective - Vital Signs Vital signs: Vital Signs Temp 98.4 F 01/02/24 13:20 Pulse 70 01/02/24 13:20 Resp 18 01/02/24 13:20 BP 122/54 01/02/24 13:20 Pulse Ox 96 01/02/24 13:20 FiO2 Intake & Output 01/01/24 01/02/24 01/02/24 18:59 06:59 18:59 Intake Total 898 Output Total 1300 Balance 898 -1300 Weight 81.647 kg Intake: Intake, IV Titration 100 Amount Sodium Ferric Gluconat- 100 Sucrose 125 mg In Sodium Chloride 0.9% 100 ml @ 100 mls/hr IVPB DAILY [facility] Rx#:[id number] Oral 798 Output: Urine 1300 Other: Voiding Method Urinal - Labs CBC & Chem 7: 01/01/24 06:58 01/01/24 06:58 Labs: Abnormal Lab Results - Last 24 Hours (Table) 01/01/24 01/01/24 01/02/24 Range/Units 16:48 20:21 05:59 POC Glucose (mg/dL) 170 H 210 H 121 H (70-110) mg/dL 01/02/24 01/02/24 Range/Units 11:20 16:26 POC Glucose (mg/dL) 169 H 132 H (70-110) mg/dL Microbiology - Last 24 Hours (Table) 12/31/23 00:45 Urine Culture - Final Urine,Voided Klebsiella oxytoca
[2024-01-02] MEDS: methylPREDNISolone SOD SUCCI 40 MG/ML 1 ML VIAL IV SCH (17:11)
[2024-01-02 21:52] LABS: Glucose,Whole Blood 298 mg/dL (70-110)
[2024-01-03 05:53] LABS: Glucose,Whole Blood 263 mg/dL (70-110)
[2024-01-03] MEDS: PEG 3350 (236 GM/BTL) + LYTES 4,000 ML BOTTLE PO ONE (08:56)
[2024-01-03 10:08] LABS: ALT 5 U/L (10-49); AST 9 U/L (14-35); Albumin/Globulin Ratio 1.03 Ratio (1.60-3.17); Alkaline Phosphatase 103 U/L (41-126); BUN/Creat Ratio 29.78 Ratio (12.00-20.00); Blood Urea Nitrogen 26.8 mg/dL (9.0-27.0); Calcium 8.5 mg/dL (8.7-10.3); Carbon Dioxide 28.3 mmol/L (21.6-31.8); Chloride 100 mmol/L (96-109); Globulin 2.9 g/dL (1.6-3.3); Glucose 238 mg/dL (70-110); Potassium 4.7 mmol/L (3.5-5.5); Sodium 138 mmol/L (135-145); Total Bilirubin <0.2 mg/dL (0.3-1.2); Total Protein 5.9 g/dL (6.2-8.2)
[2024-01-03 10:50] LABS: HCT 30.2 % (39.6-50.0); HGB 8.3 g/dL (13.0-17.0); Lymphocytes % (A) 5.3 %; MCH 21.3 pg (27.0-32.0); MCHC 27.5 g/dL (32.0-37.0); MCV 77.4 FL (80.0-97.0); NRBC Per 100 WBC 0 X 10*3/uL (0.00-0.01); Neutrophils % (A) 92.1 %; Platelet Count 201 X 10*3/uL (140-440); RDW 22.6 % (11.5-14.5)
[2024-01-03 10:51] LABS: Anisocytosis (M) 2+; Basophils # (A) 0.03 X 10*3/uL (0.00-0.10); Basophils % (A) 0.4 %; Eosinophils # (A) 0.01 X 10*3/uL (0.04-0.35); Eosinophils % (A) 0.1 %; Hypochromasia (M) 2+; Lymphocytes # (A) 0.39 X 10*3/uL (0.90-5.00); Microcytosis (M) 2+; Monocytes # (A) 0.13 X 10*3/uL (0.20-1.00); Monocytes % (A) 1.8 %; Neutrophils # (A) 6.72 X 10*3/uL (1.80-7.70)
[2024-01-03 12:04] LABS: Glucose,Whole Blood 289 mg/dL (70-110)
--- NOTE | 2024-01-03 12:37 | PN ---
PROGRESS NOTE Sepsis secondary to UTI. MMODL / IJN: [id number] /
--- NOTE | 2024-01-03 12:51 | P.PN ---
Subjective Progress Note Date: 01/03/24 patient remains stable. His he will was a8.3. On exam vital signs appear stable. Abdomen soft. Patient scheduled for EGD colonoscopy in the a.m. Objective - Vital Signs Vital signs: Vital Signs Temp 98.2 F 01/03/24 07:05 Pulse 79 01/03/24 09:06 Resp 18 01/03/24 07:05 BP 121/59 01/03/24 07:05 Pulse Ox 96 01/03/24 08:53 FiO2 Intake & Output 01/02/24 01/03/24 01/03/24 18:59 06:59 18:59 Intake Total 580 Output Total 2049 Balance -1470 Weight 81.647 kg Intake: Oral 580 Output: Urine 2049 Other: Voiding Method Urinal # Voids 6 - Labs CBC & Chem 7: 01/03/24 04:57 01/03/24 04:57 Labs: Abnormal Lab Results - Last 24 Hours (Table) 01/02/24 01/02/24 01/03/24 Range/Units 16:26 21:51 04:57 RBC 3.90 L (4.40-5.60) X 10*6/uL Hgb 8.3 L (13.0-17.0) g/dL Hct 30.2 L (39.6-50.0) % MCV 77.4 L (80.0-97.0) FL MCH 21.3 L (27.0-32.0) pg MCHC 27.5 L (32.0-37.0) g/dL RDW 22.6 H (11.5-14.5) % Lymphocytes # 0.39 L (0.90-5.00) X 10*3/uL Monocytes # 0.13 L (0.20-1.00) X 10*3/uL Eosinophils # 0.01 L (0.04-0.35) X 10*3/uL Hypochromasia (manual) 2+ A Anisocytosis (manual) 2+ A Microcytosis (manual) 2+ A BUN/Creatinine Ratio (12.00-20.00) Ratio Glucose (70-110) mg/dL POC Glucose (mg/dL) 132 H 298 H (70-110) mg/dL Calcium (8.7-10.3) mg/dL Total Bilirubin (0.3-1.2) mg/dL AST (14-35) U/L ALT (10-49) U/L Total Protein (6.2-8.2) g/dL Albumin (3.8-4.9) g/dL Albumin/Globulin Ratio (1.60-3.17) Ratio 01/03/24 01/03/24 01/03/24 Range/Units 04:57 05:52 12:03 RBC (4.40-5.60) X 10*6/uL Hgb (13.0-17.0) g/dL Hct (39.6-50.0) % MCV (80.0-97.0) FL MCH (27.0-32.0) pg MCHC (32.0-37.0) g/dL RDW (11.5-14.5) % Lymphocytes # (0.90-5.00) X 10*3/uL Monocytes # (0.20-1.00) X 10*3/uL Eosinophils # (0.04-0.35) X 10*3/uL Hypochromasia (manual) Anisocytosis (manual) Microcytosis (manual) BUN/Creatinine Ratio 29.78 H (12.00-20.00) Ratio Glucose 238 H (70-110) mg/dL POC Glucose (mg/dL) 263 H 289 H (70-110) mg/dL Calcium 8.5 L (8.7-10.3) mg/dL Total Bilirubin <0.2 L (0.3-1.2) mg/dL AST 9 L (14-35) U/L ALT 5 L (10-49) U/L Total Protein 5.9 L (6.2-8.2) g/dL Albumin 3.0 L (3.8-4.9) g/dL Albumin/Globulin Ratio 1.03 L (1.60-3.17) Ratio Microbiology - Last 24 Hours (Table) 12/31/23 00:45 Urine Culture - Final Urine,Voided Klebsiella oxytoca
--- NOTE | 2024-01-03 13:29 | PN ---
PROGRESS NOTE DATE OF SERVICE: 01/02/2024 He still remains with severe swelling in his legs and anterior wounds in the tibial areas. Cardiovascular, S1, S2. Lungs, scattered rhonchi and wheeze. Hematologic, 2 to 3+ edema. booster for his water pills. He is given IV iron. He has been off blood thinners for like 2 weeks now. Diabetic control, antibiotics were added for the urinary tract infection, which looks pretty severe. Waiting for final cultures. It was gram-negative bacilli. Waiting for final cultures. Continue current treatment for his anemia. Prognosis guarded. MMODL / IJN: [id number] /
--- NOTE | 2024-01-03 15:51 | US ---
EXAMINATION TYPE: US arterial LE multi level DATE OF EXAM: 01/03/2024 3:31 PM CLINICAL INDICATION: Male, 68 years old with history of pad; PAD. thick toenails. non-healing wounds bilateral lower legs and toes . Unable to obtain left popliteal due to patient position, body habitus and limited mobility History of: (patient poor historian) Smoker: Hypertension: unknown Diabetic: yes Hyperlipidemia: no TIA/CVA: unknown Previous Vascular Surgery: unknown ND: unknown Vascular Ulcers: yes Doppler Waveforms: Right: Monophasic Left: Monophasic Right Brachial Pressure: 143 Left Brachial Pressure: 141 Ankle-Brachial Indices: Right: 0.48 Left: 0.61 (Vessel hardening > 1.4; Normal 0.9 - 1.4, Moderate 0.7 - 0.9, Severe 0.5-0.7) Toe Brachial Indices: patient unable to hold still for toe pressures Right: 0.48 Left: 0.61 IMPRESSION: Severe bilateral peripheral vascular disease by ankle brachial indices.
[2024-01-03 16:12] LABS: Glucose,Whole Blood 334 mg/dL (70-110)
--- NOTE | 2024-01-03 16:16 | P.PN ---
Subjective Progress Note Date: 01/02/24 Principal diagnosis: Reason for follow-up is urinary tract infection Patient is a 68-year-old male with a past medical history significant for diabetes mellitus hypertension CVA TIA COPD current everyday smoker presenting to the hospital for evaluation of increased weakness and difficulty breathing, patient did have elevated white count did have a positive UA concer shhaana for possible drug-resistant UTI prompting this consultation. Patient also have abnormal CT of the chest with masslike consolidation apparently has been diagnosed with the lung cancer last year as per discussion with the pulmonary. On today's evaluation that is 01/02/2024, Patient is afebrile patient is currently on 5 L nasal cannula oxygen and denies having any shortness of breath, the patient denies any chest pain or any worsening cough, the patient denies any nausea vomiting did not have any abdominal pain and no diarrhea, has been complaining of some pain to the lower extremity. No lab draw today Objective - Vital Signs Vital signs: Vital Signs Temp 98 F 01/02/24 06:58 Pulse 70 01/02/24 08:47 Resp 18 01/02/24 06:58 BP 121/64 01/02/24 06:58 Pulse Ox 94 L 01/02/24 08:48 FiO2 Intake & Output 01/01/24 01/02/24 01/02/24 18:59 06:59 18:59 Intake Total 898 Output Total 1300 Balance 898 -1300 Intake: Intake, IV Titration 100 Amount Sodium Ferric Gluconat- 100 Sucrose 125 mg In Sodium Chloride 0.9% 100 ml @ 100 mls/hr IVPB DAILY [facility] Rx#:[id number] Oral 798 Output: Urine 1300 Other: Voiding Method Urinal - Exam GENERAL DESCRIPTION: An elderly male lying in bed in no distress RESPIRATORY SYSTEM: Unlabored breathing , coarse breath sounds bilaterally HEART: S1 S2 regular rate and rhythm , ABDOMEN: Soft , no tenderness EXTREMITIES: Bilateral lower extremity with some swelling and superficial ulceration - Labs CBC & Chem 7: 01/03/24 04:57 01/03/24 04:57 Labs: Abnormal Lab Results - Last 24 Hours (Table) 01/01/24 01/01/24 01/01/24 Range/Units 09:50 16:48 20:21 POC Glucose (mg/dL) 170 H 210 H (70-110) mg/dL Iron 30 L (65-175) UG/DL % Saturation 9.32 L (15.00-50.00) 01/02/24 01/02/24 Range/Units 05:59 11:20 POC Glucose (mg/dL) 121 H 169 H (70-110) mg/dL Iron (65-175) UG/DL % Saturation (15.00-50.00) Microbiology - Last 24 Hours (Table) 12/31/23 00:45 Urine Culture - Preliminary Urine,Voided Gram Neg Bacilli Assessment and Plan (1) Urinary tract infection Current Visit: Yes Status: Acute Code(s): N39.0 - URINARY TRACT INFECTION, SITE NOT SPECIFIED SNOMED Code(s): 04136463 Plan: 1patient presented to hospital with generalized weakness which is likely multifactorial patient did have some urinary symptoms positive UA concerning for symptomatic UTI with a last urine culture positive for Klebsiella that was intermediate to Unasyn 2-patient also have abnormal CT of the chest concerning for masslike consolidation and lymphadenopathy concerning for possible malignancy, in this patient who did have a diagnosis of lung cancer last year but did not have any follow-up pulmonary and oncology following the patient 3patient urine is growing gram-negative bacilli for the patient is currently covered with Rocephin to continue while waiting for sensitivity to finalize Dictation was produced using [employer] dictation software. please excuse any grammatical, word or spelling errors. Time with Patient: Less than 30
--- NOTE | 2024-01-03 16:17 | P.PN ---
Subjective Progress Note Date: 01/03/24 Principal diagnosis: Reason for follow-up is urinary tract infection Patient is a 68-year-old male with a past medical history significant for diabetes mellitus hypertension CVA TIA COPD current everyday smoker presenting to the hospital for evaluation of increased weakness and difficulty breathing, patient did have elevated white count did have a positive UA concer shahana for possible drug-resistant UTI prompting this consultation. Patient also have abnormal CT of the chest with masslike consolidation apparently has been diagnosed with the lung cancer last year as per discussion with the pulmonary. On today's evaluation that is 01/03/2024, patient has been afebrile, patient is breathing comfortably and is currently on room air, patient denies having any significant cough no chest pain shortness of breath, patient denies nausea vomiting or diarrhea and no abdominal pain Patient white count is 7.30, urine is growing Klebsiella creatinine 0.9 Objective - Vital Signs Vital signs: Vital Signs Temp 97.7 F 01/03/24 13:35 Pulse 72 01/03/24 13:35 Resp 18 01/03/24 13:35 BP 142/66 01/03/24 13:35 Pulse Ox 91 L 01/03/24 13:35 FiO2 Intake & Output 01/02/24 01/03/24 01/03/24 18:59 06:59 18:59 Intake Total 580 Output Total 2049 Balance -1470 Weight 81.647 kg Intake: Oral 580 Output: Urine 2049 Other: Voiding Method Urinal # Voids 6 - Exam GENERAL DESCRIPTION: An elderly male lying in bed in no distress RESPIRATORY SYSTEM: Unlabored breathing , coarse breath sounds bilaterally HEART: S1 S2 regular rate and rhythm , ABDOMEN: Soft , no tenderness EXTREMITIES: Bilateral lower extremity with some swelling and superficial ulceration - Labs CBC & Chem 7: 01/03/24 04:57 01/03/24 04:57 Labs: Abnormal Lab Results - Last 24 Hours (Table) 01/02/24 01/02/24 01/03/24 Range/Units 16:26 21:51 04:57 RBC 3.90 L (4.40-5.60) X 10*6/uL Hgb 8.3 L (13.0-17.0) g/dL Hct 30.2 L (39.6-50.0) % MCV 77.4 L (80.0-97.0) FL MCH 21.3 L (27.0-32.0) pg MCHC 27.5 L (32.0-37.0) g/dL RDW 22.6 H (11.5-14.5) % Lymphocytes # 0.39 L (0.90-5.00) X 10*3/uL Monocytes # 0.13 L (0.20-1.00) X 10*3/uL Eosinophils # 0.01 L (0.04-0.35) X 10*3/uL Hypochromasia (manual) 2+ A Anisocytosis (manual) 2+ A Microcytosis (manual) 2+ A BUN/Creatinine Ratio (12.00-20.00) Ratio Glucose (70-110) mg/dL POC Glucose (mg/dL) 132 H 298 H (70-110) mg/dL Calcium (8.7-10.3) mg/dL Total Bilirubin (0.3-1.2) mg/dL AST (14-35) U/L ALT (10-49) U/L Total Protein (6.2-8.2) g/dL Albumin (3.8-4.9) g/dL Albumin/Globulin Ratio (1.60-3.17) Ratio 01/03/24 01/03/24 01/03/24 Range/Units 04:57 05:52 12:03 RBC (4.40-5.60) X 10*6/uL Hgb (13.0-17.0) g/dL Hct (39.6-50.0) % MCV (80.0-97.0) FL MCH (27.0-32.0) pg MCHC (32.0-37.0) g/dL RDW (11.5-14.5) % Lymphocytes # (0.90-5.00) X 10*3/uL Monocytes # (0.20-1.00) X 10*3/uL Eosinophils # (0.04-0.35) X 10*3/uL Hypochromasia (manual) Anisocytosis (manual) Microcytosis (manual) BUN/Creatinine Ratio 29.78 H (12.00-20.00) Ratio Glucose 238 H (70-110) mg/dL POC Glucose (mg/dL) 263 H 289 H (70-110) mg/dL Calcium 8.5 L (8.7-10.3) mg/dL Total Bilirubin <0.2 L (0.3-1.2) mg/dL AST 9 L (14-35) U/L ALT 5 L (10-49) U/L Total Protein 5.9 L (6.2-8.2) g/dL Albumin 3.0 L (3.8-4.9) g/dL Albumin/Globulin Ratio 1.03 L (1.60-3.17) Ratio 01/03/24 Range/Units 16:11 RBC (4.40-5.60) X 10*6/uL Hgb (13.0-17.0) g/dL Hct (39.6-50.0) % MCV (80.0-97.0) FL MCH (27.0-32.0) pg MCHC (32.0-37.0) g/dL RDW (11.5-14.5) % Lymphocytes # (0.90-5.00) X 10*3/uL Monocytes # (0.20-1.00) X 10*3/uL Eosinophils # (0.04-0.35) X 10*3/uL Hypochromasia (manual) Anisocytosis (manual) Microcytosis (manual) BUN/Creatinine Ratio (12.00-20.00) Ratio Glucose (70-110) mg/dL POC Glucose (mg/dL) 334 H (70-110) mg/dL Calcium (8.7-10.3) mg/dL Total Bilirubin (0.3-1.2) mg/dL AST (14-35) U/L ALT (10-49) U/L Total Protein (6.2-8.2) g/dL Albumin (3.8-4.9) g/dL Albumin/Globulin Ratio (1.60-3.17) Ratio Microbiology - Last 24 Hours (Table) 12/31/23 00:45 Urine Culture - Final Urine,Voided Klebsiella oxytoca Assessment and Plan (1) Urinary tract infection Current Visit: Yes Status: Acute Code(s): N39.0 - URINARY TRACT INFECTION, SITE NOT SPECIFIED SNOMED Code(s): 15495336 Plan: 1patient presented to hospital with generalized weakness which is likely multifactorial patient did have some urinary symptoms positive UA concerning for symptomatic UTI with a last urine culture positive for Klebsiella that was intermediate to Unasyn 2-patient also have abnormal CT of the chest concerning for masslike consolidation and lymphadenopathy concerning for possible malignancy, in this patient who did have a diagnosis of lung cancer last year but did not have any follow-up pulmonary and oncology following the patient 3patient urine culture grew Klebsiella that is sensitive to ceftriaxone the patient is on to continue while inpatient and monitor clinical course closely Dictation was produced using [employer] software. please excuse any grammatical, word or spelling errors. Time with Patient: Less than 30
[2024-01-03 20:27] LABS: Glucose,Whole Blood 224 mg/dL (70-110)
[2024-01-04 06:09] LABS: Glucose,Whole Blood 231 mg/dL (70-110)
[2024-01-04 06:36] LABS: Methylmalonic Acid 0.27 umol/L (<0.40)
[2024-01-04 08:48] LABS: ALT 6 U/L (10-49); AST 11 U/L (14-35); Albumin 3.2 g/dL (3.8-4.9); Albumin/Globulin Ratio 1.03 Ratio (1.60-3.17); Alkaline Phosphatase 99 U/L (41-126); BUN/Creat Ratio 35.43 Ratio (12.00-20.00); Blood Urea Nitrogen 24.8 mg/dL (9.0-27.0); Calcium 8.9 mg/dL (8.7-10.3); Carbon Dioxide 31.6 mmol/L (21.6-31.8); Chloride 95 mmol/L (96-109); Globulin 3.1 g/dL (1.6-3.3); Glucose 198 mg/dL (70-110); Potassium 4.4 mmol/L (3.5-5.5); Sodium 138 mmol/L (135-145); Total Bilirubin <0.2 mg/dL (0.3-1.2); Total Protein 6.3 g/dL (6.2-8.2)
[2024-01-04 09:04] LABS: Basophils # (A) 0.01 X 10*3/uL (0.00-0.10); Basophils % (A) 0.1 %; Eosinophils # (A) 0 X 10*3/uL (0.04-0.35); Eosinophils % (A) 0 %; HCT 32.2 % (39.6-50.0); HGB 8.8 g/dL (13.0-17.0); Lymphocytes # (A) 0.59 X 10*3/uL (0.90-5.00); Lymphocytes % (A) 7.1 %; MCH 20.9 pg (27.0-32.0); MCHC 27.3 g/dL (32.0-37.0); MCV 76.3 FL (80.0-97.0); Mean Platelet Volume 11.5 FL (9.5-12.2); Monocytes # (A) 0.48 X 10*3/uL (0.20-1.00); Monocytes % (A) 5.8 %; NRBC Per 100 WBC 0 X 10*3/uL (0.00-0.01); Neutrophils # (A) 7.19 X 10*3/uL (1.80-7.70); Neutrophils % (A) 86.4 %; Platelet Count 270 X 10*3/uL (140-440); RBC 4.22 X 10*6/uL (4.40-5.60); RDW 23.7 % (11.5-14.5); WBC 8.32 X 10*3/uL (4.50-10.00)
[2024-01-04 09:05] LABS: Anisocytosis (M) 2+; Hypochromasia (M) 2+
--- NOTE | 2024-01-04 09:59 | PN ---
PROGRESS NOTE A 68-year-old white male with diabetes mellitus, hypertension, CVA, TIA, COPD. He came in mainly for his anemia. He has had increased diuresis with Zaroxolyn yesterday. He has discoloration to his toes, thick fungal toenails, and poor capillary refill on his lower feet. He had a stent placed in his left leg. He was supposed to have a stent placed in his right leg, which he never went followed up on. He also could not get a ride and follow up on his small cell lung cancer, which apparently is bigger, but he told me the oncologist thought he did not have lung cancer. OBJECTIVE: VITAL SIGNS: Temp is 97.7, pulse 72, respiratory rate 18, blood pressure 142/66, 92 on 2 L. CARDIOVASCULAR: S1, S2. LUNGS: Mild wheeze. ABDOMEN: Soft. EXTREMITIES: Show less swollen than yesterday, 2 to 3+ edema. Superficial ulceration decreased slightly. DATA: Hemoglobin is 8.3, white count is 7.3, sodium 138, potassium 4.7. ASSESSMENT: Acute on chronic right-sided heart failure, chronic obstructive pulmonary disease, probably small-cell lung cancer. He has pre cervical neck surgery, which was canceled due to his low anemia. He is diabetic. He has UTI, for which cultures are positive for Klebsiella intermittent to Unasyn, sensitive to Rocephin. Continue on Rocephin while in the hospital. Prognosis guarded. Continue with iron infusions. Get his iron increased. If his hemoglobin increases, then we will discharge him home. He is supposed to get an EGD and colonoscopy in the morning. He is on a prep right now. MMODL / IJN: [id number] /
[2024-01-04 11:47] LABS: Glucose,Whole Blood 200 mg/dL (70-110)
--- NOTE | 2024-01-04 12:25 | P.PN ---
Subjective Progress Note Date: 01/04/24 Principal diagnosis: Reason for follow-up is urinary tract infection Patient is a 68-year-old male with a past medical history significant for diabetes mellitus hypertension CVA TIA COPD current everyday smoker presenting to the hospital for evaluation of increased weakness and difficulty breathing, patient did have elevated white count did have a positive UA concer shahana for possible drug-resistant UTI prompting this consultation. Patient also have abnormal CT of the chest with masslike consolidation apparently has been diagnosed with the lung cancer last year as per discussion with the pulmonary. On today's evaluation that is 01/04/2024,the patient denies any fever or any chills, patient is breathing comfortably on 3 L nasal cannula oxygen, the patient denies chest pain shortness of breath and no worsening cough, patient denies abdominal pain, no nausea vomiting or diarrhea, denies pain to the lower extremity. Patient white count is 8.32, creatinine 0.7 Objective - Vital Signs Vital signs: Vital Signs Temp 98.1 F 01/04/24 07:10 Pulse 81 01/04/24 09:43 Resp 18 01/04/24 09:43 BP 144/72 01/04/24 07:10 Pulse Ox 95 01/04/24 07:10 FiO2 Intake & Output 01/03/24 01/04/24 01/04/24 18:59 06:59 18:59 Intake Total 150 600 Output Total 1700 Balance 150 -1100 Intake: Intake, IV Titration 150 Amount Sodium Ferric Gluconat- 100 Sucrose 125 mg In Sodium Chloride 0.9% 100 ml @ 100 mls/hr IVPB DAILY [facility] Rx#:[id number] cefTRIAXone 2 gm In 50 Sodium Chloride 0.9% 50 ml @ 100 mls/hr IVPB Q24H [facility] Rx#:[id number] Oral 600 Output: Urine 1700 Other: # Bowel Movements 1 - Exam GENERAL DESCRIPTION: An elderly male lying in bed in no distress RESPIRATORY SYSTEM: Unlabored breathing , coarse breath sounds bilaterally HEART: S1 S2 regular rate and rhythm , ABDOMEN: Soft , no tenderness EXTREMITIES: Bilateral lower extremity with some swelling and superficial ulceration - Labs CBC & Chem 7: 01/04/24 04:44 01/04/24 04:44 Labs: Abnormal Lab Results - Last 24 Hours (Table) 01/03/24 01/03/24 01/04/24 Range/Units 16:11 20:26 04:44 RBC 4.22 L (4.40-5.60) X 10*6/uL Hgb 8.8 L (13.0-17.0) g/dL Hct 32.2 L (39.6-50.0) % MCV 76.3 L (80.0-97.0) FL MCH 20.9 L (27.0-32.0) pg MCHC 27.3 L (32.0-37.0) g/dL RDW 23.7 H (11.5-14.5) % Immature Gran # 0.05 H (0.00-0.04) X 10*3/uL Lymphocytes # 0.59 L (0.90-5.00) X 10*3/uL Eosinophils # 0 L (0.04-0.35) X 10*3/uL Hypochromasia (manual) 2+ A Anisocytosis (manual) 2+ A Chloride (96-109) mmol/L BUN/Creatinine Ratio (12.00-20.00) Ratio Glucose (70-110) mg/dL POC Glucose (mg/dL) 334 H 224 H (70-110) mg/dL Total Bilirubin (0.3-1.2) mg/dL AST (14-35) U/L ALT (10-49) U/L Albumin (3.8-4.9) g/dL Albumin/Globulin Ratio (1.60-3.17) Ratio 01/04/24 01/04/24 01/04/24 Range/Units 04:44 06:07 11:46 RBC (4.40-5.60) X 10*6/uL Hgb (13.0-17.0) g/dL Hct (39.6-50.0) % MCV (80.0-97.0) FL MCH (27.0-32.0) pg MCHC (32.0-37.0) g/dL RDW (11.5-14.5) % Immature Gran # (0.00-0.04) X 10*3/uL Lymphocytes # (0.90-5.00) X 10*3/uL Eosinophils # (0.04-0.35) X 10*3/uL Hypochromasia (manual) Anisocytosis (manual) Chloride 95 L (96-109) mmol/L BUN/Creatinine Ratio 35.43 H (12.00-20.00) Ratio Glucose 198 H (70-110) mg/dL POC Glucose (mg/dL) 231 H 200 H (70-110) mg/dL Total Bilirubin <0.2 L (0.3-1.2) mg/dL AST 11 L (14-35) U/L ALT 6 L (10-49) U/L Albumin 3.2 L (3.8-4.9) g/dL Albumin/Globulin Ratio 1.03 L (1.60-3.17) Ratio Assessment and Plan (1) Urinary tract infection Current Visit: Yes Status: Acute Code(s): N39.0 - URINARY TRACT INFECTION, SITE NOT SPECIFIED SNOMED Code(s): 76281086 Plan: 1patient presented to hospital with generalized weakness which is likely multifactorial patient did have some urinary symptoms positive UA concerning for symptomatic UTI with a last urine culture positive for Klebsiella that was intermediate to Unasyn 2-patient also have abnormal CT of the chest concerning for masslike consolidation and lymphadenopathy concerning for possible malignancy, in this patient who did have a diagnosis of lung cancer last year but did not have any follow-up pulmonary and oncology following the patient 3patient urine culture grew Klebsiella that is sensitive to ceftriaxone 4-patient is afebrile patient white count normal, currently on Rocephin and monitor clinical course closely Dictation was produced using [employer] software. please excuse any grammatical, word or spelling errors. Time with Patient: Less than 30
--- NOTE | 2024-01-04 13:08 | P.PN ---
Subjective Progress Note Date: 01/04/24 CHIEF COMPLAINT: Anemia HISTORY OF PRESENT ILLNESS: Patient scheduled for EGD and colonoscopy today. Afebrile. Vital stable. Hemoglobin stable at 8.8. Completed bowel prep. PHYSICAL EXAM: VITAL SIGNS: Reviewed. GENERAL: no acute distress. ABDOMEN: Soft. Nondistended. Nontender. NEUROLOGIC: Awake ASSESSMENT: 1. Anemia. No active bleeding reported 2. Lung Cancer PLAN: -Patient scheduled for EGD and colonoscopy today with Dr. Knutson Physician Floor Service Worker [place] note has been reviewed by physician. Signing provider agrees with the documented findings, assessment, and plan of care. Objective - Vital Signs Vital signs: Vital Signs Temp 98.1 F 01/04/24 07:10 Pulse 81 01/04/24 09:43 Resp 18 01/04/24 09:43 BP 144/72 01/04/24 07:10 Pulse Ox 95 01/04/24 07:10 FiO2 Intake & Output 01/03/24 01/04/24 01/04/24 18:59 06:59 18:59 Intake Total 150 600 Output Total 1700 Balance 150 -1100 Intake: Intake, IV Titration 150 Amount Sodium Ferric Gluconat- 100 Sucrose 125 mg In Sodium Chloride 0.9% 100 ml @ 100 mls/hr IVPB DAILY [facility] Rx#:[id number] cefTRIAXone 2 gm In 50 Sodium Chloride 0.9% 50 ml @ 100 mls/hr IVPB Q24H [facility] Rx#:[id number] Oral 600 Output: Urine 1700 Other: # Bowel Movements 1 - Labs CBC & Chem 7: 01/04/24 04:44 01/04/24 04:44 Labs: Abnormal Lab Results - Last 24 Hours (Table) 01/03/24 01/03/24 01/04/24 Range/Units 16:11 20:26 04:44 RBC 4.22 L (4.40-5.60) X 10*6/uL Hgb 8.8 L (13.0-17.0) g/dL Hct 32.2 L (39.6-50.0) % MCV 76.3 L (80.0-97.0) FL MCH 20.9 L (27.0-32.0) pg MCHC 27.3 L (32.0-37.0) g/dL RDW 23.7 H (11.5-14.5) % Immature Gran # 0.05 H (0.00-0.04) X 10*3/uL Lymphocytes # 0.59 L (0.90-5.00) X 10*3/uL Eosinophils # 0 L (0.04-0.35) X 10*3/uL Hypochromasia (manual) 2+ A Anisocytosis (manual) 2+ A Chloride (96-109) mmol/L BUN/Creatinine Ratio (12.00-20.00) Ratio Glucose (70-110) mg/dL POC Glucose (mg/dL) 334 H 224 H (70-110) mg/dL Total Bilirubin (0.3-1.2) mg/dL AST (14-35) U/L ALT (10-49) U/L Albumin (3.8-4.9) g/dL Albumin/Globulin Ratio (1.60-3.17) Ratio 01/04/24 01/04/24 01/04/24 Range/Units 04:44 06:07 11:46 RBC (4.40-5.60) X 10*6/uL Hgb (13.0-17.0) g/dL Hct (39.6-50.0) % MCV (80.0-97.0) FL MCH (27.0-32.0) pg MCHC (32.0-37.0) g/dL RDW (11.5-14.5) % Immature Gran # (0.00-0.04) X 10*3/uL Lymphocytes # (0.90-5.00) X 10*3/uL Eosinophils # (0.04-0.35) X 10*3/uL Hypochromasia (manual) Anisocytosis (manual) Chloride 95 L (96-109) mmol/L BUN/Creatinine Ratio 35.43 H (12.00-20.00) Ratio Glucose 198 H (70-110) mg/dL POC Glucose (mg/dL) 231 H 200 H (70-110) mg/dL Total Bilirubin <0.2 L (0.3-1.2) mg/dL AST 11 L (14-35) U/L ALT 6 L (10-49) U/L Albumin 3.2 L (3.8-4.9) g/dL Albumin/Globulin Ratio 1.03 L (1.60-3.17) Ratio
[2024-01-04] MEDS ORDERED: PROPOFOL 10 MG/ML 20 ML VIAL IV ONE (14:23)
[2024-01-04] MEDS ORDERED: LIDOCAINE 1% INJ 10MG/ML (20 ML MDV) ONE (14:23)
[2024-01-04] MEDS: SODIUM CHLORIDE 0.9% 500 ML 500 ML IV ONE (14:34)
--- NOTE | 2024-01-04 14:39 | P.OP ---
Date of Procedure: 01/04/24 Preoperative Diagnosis: GI bleed Postoperative Diagnosis: antral gastritis Procedure(s) Performed: EGD Anesthesia: MAC Surgeon: Pablo Knutson Pathology: other (antrum) Condition: stable Disposition: PACU Description of Procedure: the patient's placed on the operating table in the lateral position. He r eceived IV sedation. The gastro-/oropharynx past esophagus and stomach. Scope was then placed through the pylorus. The first and second portion of the duodenum appeared normal. Scope was brought back the antrum was mildly inflamed. A biopsies performed. Scope was then retroflexed and remainder the stomach appeared normal. Patient had a small hiatal hernia.the GE junction was at 38 cm. The distal esophagus appeared normal. The proximal esophagus appeared normal. Scope withdrawn for patient. The patient had trouble maintaining his sats during the EGD. Due to his ventilation issues and poor colon prep the colonoscopy was canceled. The patient was sent back to his room in stable condition.
--- NOTE | 2024-01-04 15:58 | P.PN ---
Subjective Progress Note Date: 01/04/24 At today's visit patient is resting comfortably in bed. Patient is scheduled today for EGD/colonoscopy. Hemoglobin stable at 8.8. Continues on parenteral iron. Further discussed oncological history with patient, at which time patient became irritable and was raising his voice. Patient is frustrated with lack of improvement in his mobility and states he has not had any further follow-up with oncology out of [facility] as he does not have any transportation and family will not help him. Objective - Vital Signs Vital signs: Vital Signs Temp 98.1 F 01/04/24 07:10 Pulse 81 01/04/24 09:43 Resp 18 01/04/24 09:43 BP 144/72 01/04/24 07:10 Pulse Ox 95 01/04/24 07:10 FiO2 Intake & Output 01/03/24 01/04/24 01/04/24 18:59 06:59 18:59 Intake Total 150 600 200 Output Total 1700 Balance 150 -1100 200 Intake: IV 200 Intake, IV Titration 150 Amount Sodium Ferric Gluconat- 100 Sucrose 125 mg In Sodium Chloride 0.9% 100 ml @ 100 mls/hr IVPB DAILY [facility] Rx#:[id number] cefTRIAXone 2 gm In 50 Sodium Chloride 0.9% 50 ml @ 100 mls/hr IVPB Q24H [facility] Rx#:[id number] Oral 600 Output: Urine 1700 Other: # Bowel Movements 1 - Constitutional General appearance: Present: no acute distress - EENT Eyes: Present: anicteric sclerae, EOMI ENT: Present: hearing grossly normal - Respiratory Details: breathing is even and unlabored - Cardiovascular Details: skin warm and dry - Integumentary Integumentary: Absent: cyanotic - Musculoskeletal Musculoskeletal: Present: generalized weakness - Psychiatric Psychiatric: Present: A&O x's 3 - Labs CBC & Chem 7: 01/04/24 04:44 01/04/24 04:44 Labs: Abnormal Lab Results - Last 24 Hours (Table) 01/03/24 01/03/24 01/04/24 Range/Units 16:11 20:26 04:44 RBC 4.22 L (4.40-5.60) X 10*6/uL Hgb 8.8 L (13.0-17.0) g/dL Hct 32.2 L (39.6-50.0) % MCV 76.3 L (80.0-97.0) FL MCH 20.9 L (27.0-32.0) pg MCHC 27.3 L (32.0-37.0) g/dL RDW 23.7 H (11.5-14.5) % Immature Gran # 0.05 H (0.00-0.04) X 10*3/uL Lymphocytes # 0.59 L (0.90-5.00) X 10*3/uL Eosinophils # 0 L (0.04-0.35) X 10*3/uL Hypochromasia (manual) 2+ A Anisocytosis (manual) 2+ A Chloride (96-109) mmol/L BUN/Creatinine Ratio (12.00-20.00) Ratio Glucose (70-110) mg/dL POC Glucose (mg/dL) 334 H 224 H (70-110) mg/dL Total Bilirubin (0.3-1.2) mg/dL AST (14-35) U/L ALT (10-49) U/L Albumin (3.8-4.9) g/dL Albumin/Globulin Ratio (1.60-3.17) Ratio 01/04/24 01/04/24 01/04/24 Range/Units 04:44 06:07 11:46 RBC (4.40-5.60) X 10*6/uL Hgb (13.0-17.0) g/dL Hct (39.6-50.0) % MCV (80.0-97.0) FL MCH (27.0-32.0) pg MCHC (32.0-37.0) g/dL RDW (11.5-14.5) % Immature Gran # (0.00-0.04) X 10*3/uL Lymphocytes # (0.90-5.00) X 10*3/uL Eosinophils # (0.04-0.35) X 10*3/uL Hypochromasia (manual) Anisocytosis (manual) Chloride 95 L (96-109) mmol/L BUN/Creatinine Ratio 35.43 H (12.00-20.00) Ratio Glucose 198 H (70-110) mg/dL POC Glucose (mg/dL) 231 H 200 H (70-110) mg/dL Total Bilirubin <0.2 L (0.3-1.2) mg/dL AST 11 L (14-35) U/L ALT 6 L (10-49) U/L Albumin 3.2 L (3.8-4.9) g/dL Albumin/Globulin Ratio 1.03 L (1.60-3.17) Ratio Assessment and Plan (1) Microcytic hypochromic anemia Current Visit: Yes Status: Acute Priority: Medium Code(s): D50.9 - IRON DEFICIENCY ANEMIA, UNSPECIFIED SNOMED Code(s): 88886389 (2) Lung cancer Current Visit: No Status: Acute Priority: High Code(s): C34.90 - MALIGNANT NEOPLASM OF UNSP PART OF UNSP BRONCHUS OR LUNG SNOMED Code(s): 571657963 Plan: #Microcytic hypochromic anemia -Noted to be progressive over the past year with hemoglobin in December 2022 being around 13 -In addition to being on Eliquis for unclear reasons, he was also taking Excedrin intermittently for headaches -He likely has iron deficiency anemia secondary to microscopic GI blood loss -Iron studies, vitamin B12/methylmalonic acid, folic acid, and copper ordered. Workup consistent with [facility], no Vit B12 or folate deficiency noted -Already started on IV iron per primary team -Hgb stable at 8.8. Has not required blood transfusion this admission -Scheduled for EGD/colonoscopy today #Lung cancer -Prior studies at [facility] in September 2022 seem to indicate potential for metastatic lung cancer -He notes having had workup performed at [facility], including possible biopsy, but does not recall oncologist who he had seen -He seems to be living with his girlfriend in [place] per his documented address, but has received care locally in [place] as many of his doctors are in this area. After further speaking with patient, he lives in [place] and he states he has not had any further follow-up with oncology out of [facility] as he does not have any transportation and family will not help him -We did discuss that he could receive oncology care in [place] vs transferring care locally. He stated he would prefer to transfer care to [place]. We will request records from [facility] regarding any PET scans, pathology, and further workup received -Discussed with patient regarding his poor PS and that he would need to be able to come to clinic for treatments and f/u care, and that he may need rehab prior to considering any treatment. He verbalized understanding -SW consulted for assistance with outpt resources and medical transportation
[2024-01-04 16:34] LABS: Glucose,Whole Blood 225 mg/dL (70-110)
--- NOTE | 2024-01-04 19:33 | P.PN ---
Subjective Progress Note Date: 01/04/24 Principal diagnosis: right middle lobe masslike consolidation with air bronchogram differential diagnosis pneumonia versus postobstructive pneumonia right parahilar mass 5 x 3.4 cm in size likely neoplasm, however aspart patient diagnosed as a cancer and [facility] about a year ago, he had a bronchoscopy and biopsy, recommended for radiation and chemotherapy but patient did not follow throughwill obtain path report computed tomography scan reports and consult oncology Acute on chronic hypoxic respiratory failure due to baseline COPD congestive heart failure with acute exacerbation congestive heart failure with acute exacerbation, on diuresis Hypotension related to above as well as diuresis, will initiate patient on low- dose midodrine UTI secondary to Klebsiella most likely, on IV Rocephin follow-up on culture and sensitivity reports type 2 diabetes mellitus on short and long-acting insulin 01/04/2024, patient seen and evaluated examined during rounds labs reviewed medications reviewed care plan discussed, patient remains afebrile with stable hemodynamics, oxygen saturation 92% on 3 L nasal cannula, ongoing cough congestion shortness of breath present which however stableon bronchodilator inhaled corticosteroids and broad-spectrum antibiotics patient remains on IV Solu-Medrol every 8 hourly 40 mg patient is being given midodrine as well, patient has been evaluated by medical oncology awaiting records. Patient underwent endoscopy upper however postoperatively developed desaturations colonoscopy was canceled 68-year-old male with extensive history of smoking and nicotine use chronic hypoxic respiratory failure uses 2-1/2 L oxygen at home, admitted into the hospital with generalized weakness with history of intermittent fall patient has extensive swelling of the lower extremity with chronic skin changes and early cellulitis. Patient had a chest x-ray which shows bilateral small pleural effusion more so on the right side compared left side and CHF-like finding, however computed tomography scan of the chest revealed significant finding of right hilar mass/lymphadenopathy about 5 x 3 cm in size. Patient expresses that he has been evaluated at [facility] had a biopsy done about a year ago he was recommended for chemo and radiation therapy but patient couldn't find transportation and did not follow through.he has been on direct oral anticoagulant with the last was yesterday. Due to generalized weakness patient was evaluated in primary care service also noted to be anemic advised to be admitted to hospital patient fact for scheduled for C-spine surgery which has been postponed. 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 Currently patient is on bronchodilators, IV Rocephin,labs are significant for white cells are 10.3, hemoglobin and hematocrit 11 MCV 76, when necessary is 31 creatinine 1.2 glucose 129urine culture positive for gram-negative rods patient has a history of Klebsiella oxytocin in the past Objective - Vital Signs Vital signs: Vital Signs Temp 98.0 F 01/04/24 14:10 Pulse 68 01/04/24 16:26 Resp 19 01/04/24 14:10 BP 153/76 01/04/24 14:10 Pulse Ox 92 L 01/04/24 14:10 FiO2 Intake & Output 01/04/24 01/04/24 01/05/24 06:59 18:59 06:59 Intake Total 600 200 Output Total 1700 700 Balance -1100 -500 Intake: IV 200 Oral 600 Output: Urine 1700 700 Other: # Bowel Movements 1 1 - Exam - Constitutional General appearance: average body habitus, cooperative, disheveled - EENT Eyes: EOMI, PERRLA ENT: normal oropharynx Ears: bilateral: normal - Neck Neck: normal ROM Carotids: bilateral: upstroke normal Thyroid: bilateral: normal size - Respiratory Respiratory: right: diminished, dullness, bilateral: rales - Cardiovascular Rhythm: regular Heart sounds: normal: S1, S2 - Gastrointestinal General gastrointestinal: normal bowel sounds, soft - Integumentary bilateral +3 edema of lower extremity along with the chronic skin changes earlier erythema suggestive of developing cellulitis - Neurologic Neurologic: CNII-XII intact - Musculoskeletal Musculoskeletal: generalized weakness, strength equal bilaterally - Psychiatric Psychiatric: A&O x's 3, appropriate affect, intact judgment & insight - Labs CBC & Chem 7: 01/04/24 04:44 01/04/24 04:44 Labs: Abnormal Lab Results - Last 24 Hours (Table) 01/03/24 01/04/24 01/04/24 Range/Units 20:26 04:44 04:44 RBC 4.22 L (4.40-5.60) X 10*6/uL Hgb 8.8 L (13.0-17.0) g/dL Hct 32.2 L (39.6-50.0) % MCV 76.3 L (80.0-97.0) FL MCH 20.9 L (27.0-32.0) pg MCHC 27.3 L (32.0-37.0) g/dL RDW 23.7 H (11.5-14.5) % Immature Gran # 0.05 H (0.00-0.04) X 10*3/uL Lymphocytes # 0.59 L (0.90-5.00) X 10*3/uL Eosinophils # 0 L (0.04-0.35) X 10*3/uL Hypochromasia (manual) 2+ A Anisocytosis (manual) 2+ A Chloride 95 L (96-109) mmol/L BUN/Creatinine Ratio 35.43 H (12.00-20.00) Ratio Glucose 198 H (70-110) mg/dL POC Glucose (mg/dL) 224 H (70-110) mg/dL Total Bilirubin <0.2 L (0.3-1.2) mg/dL AST 11 L (14-35) U/L ALT 6 L (10-49) U/L Albumin 3.2 L (3.8-4.9) g/dL Albumin/Globulin Ratio 1.03 L (1.60-3.17) Ratio 01/04/24 01/04/24 01/04/24 Range/Units 06:07 11:46 16:33 RBC (4.40-5.60) X 10*6/uL Hgb (13.0-17.0) g/dL Hct (39.6-50.0) % MCV (80.0-97.0) FL MCH (27.0-32.0) pg MCHC (32.0-37.0) g/dL RDW (11.5-14.5) % Immature Gran # (0.00-0.04) X 10*3/uL Lymphocytes # (0.90-5.00) X 10*3/uL Eosinophils # (0.04-0.35) X 10*3/uL Hypochromasia (manual) Anisocytosis (manual) Chloride (96-109) mmol/L BUN/Creatinine Ratio (12.00-20.00) Ratio Glucose (70-110) mg/dL POC Glucose (mg/dL) 231 H 200 H 225 H (70-110) mg/dL Total Bilirubin (0.3-1.2) mg/dL AST (14-35) U/L ALT (10-49) U/L Albumin (3.8-4.9) g/dL Albumin/Globulin Ratio (1.60-3.17) Ratio Assessment and Plan Assessment: acute on chronic hypoxic history failure post endoscopy, sats however has improved patient on 3 L nasal cannula sats are low to mid 90s now we'll check follow-up chest x-ray in the morning right middle lobe masslike consolidation with air bronchogram differential diagnosis pneumonia versus postobstructive pneumonia, continue antibiotics oncology following awaiting records from [facility] right parahilar mass 5 x 3.4 cm in size likely neoplasm, however aspart patient diagnosed as a cancer and [facility] about a year ago, he had a bronchoscopy and biopsy, recommended for radiation and chemotherapy but patient did not follow throughwi obtain path report computed tomography scan reports and co nsult oncology Acute on chronic hypoxic respiratory failure due to baseline COPD congestive heart failure with acute exacerbation congestive heart failure with acute exacerbation, on diuresis Hypotension related to above as well as diuresis, will initiate patient on low- dose midodrine UTI secondary to Klebsiella most likely, on IV Rocephin follow-up on culture and sensitivity reports type 2 diabetes mellitus on short and long-acting insulin Plan: as above Time with Patient: Greater than 30
[2024-01-04 20:16] LABS: Glucose,Whole Blood 304 mg/dL (70-110)
[2024-01-04] MEDS: LACTATED RINGERS 1,000 ML IV SCH (20:52)
--- NOTE | 2024-01-04 23:32 | PN ---
PROGRESS NOTE SUBJECTIVE: He is on his DuoNeb updrafts, IV Solu-Medrol, Pulmicort updrafts, Rocephin for drug- resistant UTI. He decompensated to 70% oxygen during the EGD, so he was unable to get a colonoscopy and a poor prep. Labs are up to 8.8 on his hemoglobin, sodium was 138, potassium 4.4, glucose is 100 to 200s. OBJECTIVE: CARDIOVASCULAR: S1, S2. LUNGS: Decreased breath sounds x4. GI: Soft. HEMATOLOGY: Negative for Homans. PLAN: Continue hemoglobin improved with iron infusions. Check electrolytes. Check hemoglobin again in the morning. The patient possibly will be discharged in next day or 2. Wait for Oncology recommendations. Please see further orders. MMODL / IJN: [id number] /
[2024-01-05 06:10] LABS: Glucose,Whole Blood 255 mg/dL (70-110)
[2024-01-05] MEDS ORDERED: ZINC OXIDE PASTE (Z-GUARD) 1 APPLIC TOPICAL PRN (07:50)
--- NOTE | 2024-01-05 08:21 | XR ---
EXAMINATION TYPE: XR chest 1V portable DATE OF EXAM: 01/05/2024 COMPARISON: 12/30/2023 INDICATION: Pneumonia TECHNIQUE: Single frontal view of the chest is obtained. FINDINGS: The heart size is normal. The pulmonary vasculature is normal. Left lower lobe infiltrate is present. There appears to be some elevation of the diaphragm. A right l ower lobe infiltrate may be present. Correlate for pneumonia. Atelectasis could be considered. IMPRESSION: 1. Right basilar infiltrates. Correlate for atelectasis and pneumonia. Follow-up is recommended.
[2024-01-05 08:40] LABS: Basophils # (A) 0.01 X 10*3/uL (0.00-0.10); Basophils % (A) 0.2 %; Eosinophils # (A) 0 X 10*3/uL (0.04-0.35); Eosinophils % (A) 0 %; HCT 33.2 % (39.6-50.0); HGB 9.2 g/dL (13.0-17.0); Lymphocytes # (A) 0.39 X 10*3/uL (0.90-5.00); Lymphocytes % (A) 5.9 %; MCHC 27.7 g/dL (32.0-37.0); MCV 75.6 FL (80.0-97.0); Mean Platelet Volume 11.6 FL (9.5-12.2); Monocytes % (A) 6.1 %; NRBC Per 100 WBC 0 X 10*3/uL (0.00-0.01); Neutrophils # (A) 5.73 X 10*3/uL (1.80-7.70); Neutrophils % (A) 86.9 %; Platelet Count 264 X 10*3/uL (140-440); RBC 4.39 X 10*6/uL (4.40-5.60); WBC 6.59 X 10*3/uL (4.50-10.00)
[2024-01-05 09:18] LABS: ALT 7 U/L (10-49); AST 9 U/L (14-35); Albumin 3.1 g/dL (3.8-4.9); Albumin/Globulin Ratio 1.11 Ratio (1.60-3.17); Alkaline Phosphatase 93 U/L (41-126); BUN/Creat Ratio 35.29 Ratio (12.00-20.00); Blood Urea Nitrogen 24.7 mg/dL (9.0-27.0); Carbon Dioxide 32.6 mmol/L (21.6-31.8); Chloride 94 mmol/L (96-109); Globulin 2.8 g/dL (1.6-3.3); Glucose 229 mg/dL (70-110); Potassium 4.4 mmol/L (3.5-5.5); Sodium 138 mmol/L (135-145); Total Bilirubin <0.2 mg/dL (0.3-1.2); Total Protein 5.9 g/dL (6.2-8.2)
--- NOTE | 2024-01-05 10:25 | P.PN ---
Subjective Progress Note Date: 01/05/24 Principal diagnosis: right middle lobe masslike consolidation with air bronchogram differential diagnosis pneumonia versus postobstructive pneumonia right parahilar mass 5 x 3.4 cm in size likely neoplasm, however aspart patient diagnosed as a cancer and [facility] about a year ago, he had a bronchoscopy and biopsy, recommended for radiation and chemotherapy but patient did not follow throughwill obtain path report computed tomography scan reports and consult oncology Acute on chronic hypoxic respiratory failure due to baseline COPD congestive heart failure with acute exacerbation congestive heart failure with acute exacerbation, on diuresis Hypotension related to above as well as diuresis, will initiate patient on low- dose midodrine UTI secondary to Klebsiella most likely, on IV Rocephin follow-up on culture and sensitivity reports type 2 diabetes mellitus on short and long-acting insulin 01/05/2024, patient seen eval examined the rounds labs reviewed medications reviewed care plan discussed, patient is awake and alert on 3 L oxygen saturation mid 90s, remains on broad-spectrum antibiotics, patient has transient desaturation post endoscopy however subsequently improved and back to baseline.saturation is 95% hemodynamic status stable patient remains afebrile,S x-ray performed today reviewed persistent right basilar infiltrate are present 01/04/2024, patient seen and evaluated examined during rounds labs reviewed medications reviewed care plan discussed, patient remains afebrile with stable hemodynamics, oxygen saturation 92% on 3 L nasal cannula, ongoing cough congestion shortness of breath present which however stableon bronchodilator inhaled corticosteroids and broad-spectrum antibiotics patient remains on IV Solu-Medrol every 8 hourly 40 mg patient is being given midodrine as well, patient has been evaluated by medical oncology awaiting records. Patient underwent endoscopy upper however postoperatively developed desaturations colon oscopy was canceled 68-year-old male with extensive history of smoking and nicotine use chronic hyp oxic respiratory failure uses 2-1/2 L oxygen at home, admitted into the hospital with generalized weakness with history of intermittent fall patient has extensive swelling of the lower extremity with chronic skin changes and early cellulitis. Patient had a chest x-ray which shows bilateral small pleural effusion more so on the right side compared left side and CHF-like finding, however computed tomography scan of the chest revealed significant finding of right hilar mass/lymphadenopathy about 5 x 3 cm in size. Patient expresses that he has been evaluated at [facility] had a biopsy done about a year ago he was recommended for chemo and radiation therapy but patient couldn't find transportation and did not follow through.he has been on direct oral anticoagulant with the last was yesterday. Due to generalized weakness patient was evaluated in primary care service also noted to be anemic advised to be admitted to hospital patient fact for scheduled for C-spine surgery which has been postponed. 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 Currently patient is on bronchodilators, IV Rocephin,labs are significant for white cells are 10.3, hemoglobin and hematocrit 08/06 MCV 76, when necessary is 31 creatinine 1.2 glucose 129urine culture positive for gram-negative rods patient has a history of Klebsiella oxytocin in the past Objective - Vital Signs Vital signs: Vital Signs Temp 97.9 F 01/05/24 07:23 Pulse 62 01/05/24 07:23 Resp 20 01/05/24 07:23 BP 134/63 01/05/24 07:23 Pulse Ox 95 01/05/24 07:23 FiO2 Intake & Output 01/04/24 01/05/24 01/05/24 18:59 06:59 18:59 Intake Total 200 Output Total 700 1500 Balance -500 -1500 Weight 99.5 kg Intake: IV 200 Output: Urine 700 1500 Other: Voiding Method External Catheter # Bowel Movements 1 1 2 - Exam - Constitutional General appearance: average body habitus, cooperative, disheveled - EENT Eyes: EOMI, PERRLA ENT: normal oropharynx Ears: bilateral: normal - Neck Neck: normal ROM Carotids: bilateral: upstroke normal Thyroid: bilateral: normal size - Respiratory Respiratory: right: diminished, dullness, bilateral: rales - Cardiovascular Rhythm: regular Heart sounds: normal: S1, S2 - Gastrointestinal General gastrointestinal: normal bowel sounds, soft - Integumentary bilateral +3 edema of lower extremity along with the chronic skin changes earlier erythema suggestive of developing cellulitis - Neurologic Neurologic: CNII-XII intact - Musculoskeletal Musculoskeletal: generalized weakness, strength equal bilaterally - Psychiatric Psychiatric: A&O x's 3, appropriate affect, intact judgment & insight - Labs CBC & Chem 7: 01/05/24 04:47 01/05/24 04:47 Labs: Abnormal Lab Results - Last 24 Hours (Table) 01/04/24 01/04/24 01/04/24 Range/Units 11:46 16:33 20:14 RBC (4.40-5.60) X 10*6/uL Hgb (13.0-17.0) g/dL Hct (39.6-50.0) % MCV (80.0-97.0) FL MCH (27.0-32.0) pg MCHC (32.0-37.0) g/dL RDW (11.5-14.5) % Immature Gran # (0.00-0.04) X 10*3/uL Lymphocytes # (0.90-5.00) X 10*3/uL Eosinophils # (0.04-0.35) X 10*3/uL Chloride (96-109) mmol/L Carbon Dioxide (21.6-31.8) mmol/L BUN/Creatinine Ratio (12.00-20.00) Ratio Glucose (70-110) mg/dL POC Glucose (mg/dL) 200 H 225 H 304 H (70-110) mg/dL Total Bilirubin (0.3-1.2) mg/dL AST (14-35) U/L ALT (10-49) U/L Total Protein (6.2-8.2) g/dL Albumin (3.8-4.9) g/dL Albumin/Globulin Ratio (1.60-3.17) Ratio 01/05/24 01/05/24 01/05/24 Range/Units 04:47 04:47 06:09 RBC 4.39 L (4.40-5.60) X 10*6/uL Hgb 9.2 L (13.0-17.0) g/dL Hct 33.2 L (39.6-50.0) % MCV 75.6 L (80.0-97.0) FL MCH 21.0 L (27.0-32.0) pg MCHC 27.7 L (32.0-37.0) g/dL RDW 24.0 H (11.5-14.5) % Immature Gran # 0.06 H (0.00-0.04) X 10*3/uL Lymphocytes # 0.39 L (0.90-5.00) X 10*3/uL Eosinophils # 0 L (0.04-0.35) X 10*3/uL Chloride 94 L (96-109) mmol/L Carbon Dioxide 32.6 H (21.6-31.8) mmol/L BUN/Creatinine Ratio 35.29 H (12.00-20.00) Ratio Glucose 229 H (70-110) mg/dL POC Glucose (mg/dL) 255 H (70-110) mg/dL Total Bilirubin <0.2 L (0.3-1.2) mg/dL AST 9 L (14-35) U/L ALT 7 L (10-49) U/L Total Protein 5.9 L (6.2-8.2) g/dL Albumin 3.1 L (3.8-4.9) g/dL Albumin/Globulin Ratio 1.11 L (1.60-3.17) Ratio Assessment and Plan Assessment: acute on chronic hypoxic history failure post endoscopy, sats however has improved patient on 3 L nasal cannula sats are low to mid 90s reviewed chest x- ray overall remains stable right middle lobe masslike consolidation with air bronchogram differential diagnosis pneumonia versus postobstructive pneumonia, continue antibiotics oncology following awaiting records from [facility] right parahilar mass 5 x 3.4 cm in size likely neoplasm, however aspart patient diagnosed as a cancer and [facility] about a year ago, he had a bronchoscopy and biopsy, recommended for radiation and chemotherapy but patient did not follow throughwill obtain path report computed tomography scan reports and consult oncology Acute on chronic hypoxic respiratory failure due to baseline COPD congestive heart failure with acute exacerbation congestive heart failure with acute exacerbation, on diuresis Hypotension related to above as well as diuresis, will initiate patient on low- dose midodrine UTI secondary to Klebsiella most likely, on IV Rocephin follow-up on culture and sensitivity reports type 2 diabetes mellitus on short and long-acting insulin Plan: as above Time with Patient: Greater than 30
--- NOTE | 2024-01-05 11:01 | P.PN ---
Subjective Progress Note Date: 01/05/24 CHIEF COMPLAINT: Anemia HISTORY OF PRESENT ILLNESS: Patient is status post EGD revealing antral gastritis. Patient had poor colon bowel prep and ventilation issues colonoscopy was canceled yesterday. Patient had smear of BM. Afebrile. WBC 6.59 Hgb stable at 9.2 PHYSICAL EXAM: VITAL SIGNS: Reviewed. GENERAL: no acute distress. ABDOMEN: Soft. Nondistended. Nontender. ASSESSMENT: 1. Anemia. Status post EGD revealing antral gastritis 2. Lung Cancer PLAN: -Plan for second attempt of colonoscopy on with Dr. Knutson if cleared by pulmonary service -Give lactulose today -Start full liquid diet today in preparation for colonoscopy -Start bowel prep tomorrow Physician Delivery Crew Worker note has been reviewed by physician. Signing provider agrees with the documented findings, assessment, and plan of care. Objective - Vital Signs Vital signs: Vital Signs Temp 97.9 F 01/05/24 07:23 Pulse 62 01/05/24 07:23 Resp 20 01/05/24 07:23 BP 134/63 01/05/24 07:23 Pulse Ox 95 01/05/24 07:23 FiO2 Intake & Output 01/04/24 01/05/24 01/05/24 18:59 06:59 18:59 Intake Total 200 Output Total 700 1500 Balance -500 -1500 Weight 99.5 kg Intake: IV 200 Output: Urine 700 1500 Other: Voiding Method External Catheter # Bowel Movements 1 1 2 - Labs CBC & Chem 7: 01/05/24 04:47 01/05/24 04:47 Labs: Abnormal Lab Results - Last 24 Hours (Table) 01/04/24 01/04/24 01/04/24 Range/Units 11:46 16:33 20:14 RBC (4.40-5.60) X 10*6/uL Hgb (13.0-17.0) g/dL Hct (39.6-50.0) % MCV (80.0-97.0) FL MCH (27.0-32.0) pg MCHC (32.0-37.0) g/dL RDW (11.5-14.5) % Immature Gran # (0.00-0.04) X 10*3/uL Lymphocytes # (0.90-5.00) X 10*3/uL Eosinophils # (0.04-0.35) X 10*3/uL Chloride (96-109) mmol/L Carbon Dioxide (21.6-31.8) mmol/L BUN/Creatinine Ratio (12.00-20.00) Ratio Glucose (70-110) mg/dL POC Glucose (mg/dL) 200 H 225 H 304 H (70-110) mg/dL Total Bilirubin (0.3-1.2) mg/dL AST (14-35) U/L ALT (10-49) U/L Total Protein (6.2-8.2) g/dL Albumin (3.8-4.9) g/dL Albumin/Globulin Ratio (1.60-3.17) Ratio 01/05/24 01/05/24 01/05/24 Range/Units 04:47 04:47 06:09 RBC 4.39 L (4.40-5.60) X 10*6/uL Hgb 9.2 L (13.0-17.0) g/dL Hct 33.2 L (39.6-50.0) % MCV 75.6 L (80.0-97.0) FL MCH 21.0 L (27.0-32.0) pg MCHC 27.7 L (32.0-37.0) g/dL RDW 24.0 H (11.5-14.5) % Immature Gran # 0.06 H (0.00-0.04) X 10*3/uL Lymphocytes # 0.39 L (0.90-5.00) X 10*3/uL Eosinophils # 0 L (0.04-0.35) X 10*3/uL Chloride 94 L (96-109) mmol/L Carbon Dioxide 32.6 H (21.6-31.8) mmol/L BUN/Creatinine Ratio 35.29 H (12.00-20.00) Ratio Glucose 229 H (70-110) mg/dL POC Glucose (mg/dL) 255 H (70-110) mg/dL Total Bilirubin <0.2 L (0.3-1.2) mg/dL AST 9 L (14-35) U/L ALT 7 L (10-49) U/L Total Protein 5.9 L (6.2-8.2) g/dL Albumin 3.1 L (3.8-4.9) g/dL Albumin/Globulin Ratio 1.11 L (1.60-3.17) Ratio
[2024-01-05 11:11] LABS: Glucose,Whole Blood 254 mg/dL (70-110)
[2024-01-05] MEDS: LACTULOSE 20 GM/30 ML CUP PO ONE (12:02)
[2024-01-05 16:10] LABS: Glucose,Whole Blood 289 mg/dL (70-110)
[2024-01-05 20:37] LABS: Glucose,Whole Blood 323 mg/dL (70-110)
[2024-01-06 06:29] LABS: Glucose,Whole Blood 296 mg/dL (70-110)
[2024-01-06 08:59] LABS: Basophils # (A) 0.01 X 10*3/uL (0.00-0.10); Basophils % (A) 0.2 %; Eosinophils # (A) 0 X 10*3/uL (0.04-0.35); Eosinophils % (A) 0 %; HCT 34.4 % (39.6-50.0); HGB 9.4 g/dL (13.0-17.0); Lymphocytes # (A) 0.31 X 10*3/uL (0.90-5.00); Lymphocytes % (A) 4.9 %; MCH 21.3 pg (27.0-32.0); MCHC 27.3 g/dL (32.0-37.0); MCV 77.8 FL (80.0-97.0); Mean Platelet Volume 11.8 FL (9.5-12.2); Monocytes # (A) 0.43 X 10*3/uL (0.20-1.00); Monocytes % (A) 6.8 %; NRBC Per 100 WBC 0 X 10*3/uL (0.00-0.01); Neutrophils # (A) 5.55 X 10*3/uL (1.80-7.70); Neutrophils % (A) 87.8 %; Platelet Count 249 X 10*3/uL (140-440); RBC 4.42 X 10*6/uL (4.40-5.60); RDW 23.8 % (11.5-14.5); WBC 6.32 X 10*3/uL (4.50-10.00)
[2024-01-06 09:26] LABS: ALT 17 U/L (10-49); AST 10 U/L (14-35); Albumin 3.2 g/dL (3.8-4.9); Albumin/Globulin Ratio 1.19 Ratio (1.60-3.17); Alkaline Phosphatase 88 U/L (41-126); BUN/Creat Ratio 32.71 Ratio (12.00-20.00); Blood Urea Nitrogen 22.9 mg/dL (9.0-27.0); Calcium 9.2 mg/dL (8.7-10.3); Carbon Dioxide 34.8 mmol/L (21.6-31.8); Chloride 93 mmol/L (96-109); Globulin 2.7 g/dL (1.6-3.3); Glucose 305 mg/dL (70-110); Potassium 4.1 mmol/L (3.5-5.5); Sodium 137 mmol/L (135-145); Total Bilirubin <0.2 mg/dL (0.3-1.2); Total Protein 5.9 g/dL (6.2-8.2)
[2024-01-06] MEDS: PEG 3350 (236 GM/BTL) + LYTES 4,000 ML BOTTLE PO ONE (10:50)
[2024-01-06 11:39] LABS: Glucose,Whole Blood 293 mg/dL (70-110)
--- NOTE | 2024-01-06 14:14 | PN ---
PROGRESS NOTE SUBJECTIVE: This is a 68-year-old white male. He is being prepped for another colonoscopy. His hemoglobin is up to 9.4 from 9.2, CO2 is 34.8. Sugars 200 to 300. OBJECTIVE: CARDIOVASCULAR: S1, S2. LUNGS: Transmitted upper sounds. GI: Soft. HEMATOLOGY: Negative for Homans. PSYCH: Fair mood and affect. VITAL SIGNS: Pulse 54, temp 97.8, blood pressure 137/67, O2 95 on 3 L. NEUROLOGIC: Alert and oriented x3. protein-calorie malnutrition, metastatic non-small cell lung cancer. The patient wants cervical surgery despite having lung cancer. His CHF is improved with increased Zaroxolyn. LABS: Show sodium is 137, potassium 4.1, creatinine is 0.7. BUN is 22. Sugars in mid 200s. Prognosis guarded . Please see further orders. MMODL / IJN: [id number] /
--- NOTE | 2024-01-06 14:32 | P.PN ---
Subjective Progress Note Date: 01/06/24 CHIEF COMPLAINT: Anemia HISTORY OF PRESENT ILLNESS: Patient is status post EGD revealing antral gastritis. Patient had poor colon bowel prep and ventilation issues colonoscopy was canceled on 01/04/24. Afebrile. WBC 6.32 Hgb stable at 9.4 platelets 249 PHYSICAL EXAM: VITAL SIGNS: Reviewed. GENERAL: no acute distress. ABDOMEN: Soft. Nondistended. Nontender. ASSESSMENT: 1. Anemia. Status post EGD revealing antral gastritis 2. Lung Cancer PLAN: -Plan for second attempt of colonoscopy tomorrow with Dr. Knutson if cleared by pulmonary service -Clear liquid diet today -Bowel prep today -NPO after midnight Physician Production Gear Cutter note has been reviewed by physician. Signing provider agrees with the documented findings, assessment, and plan of care. Objective - Vital Signs Vital signs: Vital Signs Temp 97.8 F 01/06/24 07:53 Pulse 62 01/06/24 08:39 Resp 17 01/06/24 07:53 BP 137/67 01/06/24 07:53 Pulse Ox 97 01/06/24 08:25 FiO2 Intake & Output 01/05/24 01/06/24 01/06/24 18:59 06:59 18:59 Output Total 1800 3150 Balance -1800 -3150 Weight 97.5 kg Output: Urine 1800 3150 Other: Voiding Method External Catheter # Bowel Movements 2 - Labs CBC & Chem 7: 01/06/24 04:39 01/06/24 04:39 Labs: Abnormal Lab Results - Last 24 Hours (Table) 01/05/24 01/05/24 01/05/24 Range/Units 11:09 16:09 20:36 Hgb (13.0-17.0) g/dL Hct (39.6-50.0) % MCV (80.0-97.0) FL MCH (27.0-32.0) pg MCHC (32.0-37.0) g/dL RDW (11.5-14.5) % Lymphocytes # (0.90-5.00) X 10*3/uL Eosinophils # (0.04-0.35) X 10*3/uL Chloride (96-109) mmol/L Carbon Dioxide (21.6-31.8) mmol/L BUN/Creatinine Ratio (12.00-20.00) Ratio Glucose (70-110) mg/dL POC Glucose (mg/dL) 254 H 289 H 323 H (70-110) mg/dL Total Bilirubin (0.3-1.2) mg/dL AST (14-35) U/L Total Protein (6.2-8.2) g/dL Albumin (3.8-4.9) g/dL Albumin/Globulin Ratio (1.60-3.17) Ratio 01/06/24 01/06/24 01/06/24 Range/Units 04:39 04:39 06:28 Hgb 9.4 L (13.0-17.0) g/dL Hct 34.4 L (39.6-50.0) % MCV 77.8 L (80.0-97.0) FL MCH 21.3 L (27.0-32.0) pg MCHC 27.3 L (32.0-37.0) g/dL RDW 23.8 H (11.5-14.5) % Lymphocytes # 0.31 L (0.90-5.00) X 10*3/uL Eosinophils # 0 L (0.04-0.35) X 10*3/uL Chloride 93 L (96-109) mmol/L Carbon Dioxide 34.8 H (21.6-31.8) mmol/L BUN/Creatinine Ratio 32.71 H (12.00-20.00) Ratio Glucose 305 H (70-110) mg/dL POC Glucose (mg/dL) 296 H (70-110) mg/dL Total Bilirubin <0.2 L (0.3-1.2) mg/dL AST 10 L (14-35) U/L Total Protein 5.9 L (6.2-8.2) g/dL Albumin 3.2 L (3.8-4.9) g/dL Albumin/Globulin Ratio 1.19 L (1.60-3.17) Ratio
[2024-01-06 16:55] LABS: Glucose,Whole Blood 291 mg/dL (70-110)
[2024-01-06 21:17] LABS: Glucose,Whole Blood 358 mg/dL (70-110)
--- NOTE | 2024-01-06 21:53 | PN ---
PROGRESS NOTE SUBJECTIVE: This is a 68-year-old white male. Temperature 97.8, pulse is 50s to 60s, respiratory rate 16 to 18, blood pressure 137/67, O2 95 to 97 on 3 L. Emre Borrego's hemoglobin is 9.4, pCO2 is 34.8. Sugars are mid 200s to 300s. His leg swelling is greatly improved. His hemoglobin is increased to 9.4. Scheduled for colonoscopy tomorrow. He has taken his prep today. Continue on IV ferritin infusions. His hemoglobin appears to be improving. His breathing is slowly improving. He is stabilizing. Prognosis guarded. UTI is being treated. Also will get the final culture back. He is on the right current antibiotics. PROGNOSIS: Guarded. MMODL / IJN: [id number] /
[2024-01-07 06:39] LABS: Glucose,Whole Blood 258 mg/dL (70-110)
[2024-01-07 08:50] LABS: Basophils # (A) 0.01 X 10*3/uL (0.00-0.10); Basophils % (A) 0.1 %; Eosinophils # (A) 0 X 10*3/uL (0.04-0.35); Eosinophils % (A) 0 %; HGB 10.2 g/dL (13.0-17.0); Lymphocytes # (A) 0.48 X 10*3/uL (0.90-5.00); Lymphocytes % (A) 6.5 %; MCH 21.6 pg (27.0-32.0); MCHC 28.3 g/dL (32.0-37.0); MCV 76.3 FL (80.0-97.0); Mean Platelet Volume 11.4 FL (9.5-12.2); Monocytes # (A) 0.51 X 10*3/uL (0.20-1.00); Monocytes % (A) 6.9 %; NRBC Per 100 WBC 0 X 10*3/uL (0.00-0.01); Platelet Count 286 X 10*3/uL (140-440); RBC 4.72 X 10*6/uL (4.40-5.60); RDW 24.3 % (11.5-14.5); WBC 7.44 X 10*3/uL (4.50-10.00)
--- NOTE | 2024-01-07 10:31 | P.PN ---
Subjective Progress Note Date: 01/07/24 CHIEF COMPLAINT: Anemia HISTORY OF PRESENT ILLNESS: Patient is status post EGD revealing antral gastritis. Patient completed almost all of the bowel prep yesterday. Scheduled for colonoscopy today. Afebrile. On 3 L oxygen satting at 91%. Vital stable WBC 7.4 Hgb 10.2 platelets 286 PHYSICAL EXAM: VITAL SIGNS: Reviewed. GENERAL: no acute distress. ABDOMEN: Soft. Nondistended. Nontender. ASSESSMENT: 1. Anemia. Status post EGD revealing antral gastritis 2. Lung Cancer PLAN: -Patient scheduled for colonoscopy today with Dr. Knutson. Patient has been cleared by pulmonary service to proceed with procedure Physician Ticket Writer note has been reviewed by physician. Signing provider agrees with the documented findings, assessment, and plan of care. Objective - Vital Signs Vital signs: Vital Signs Temp 97.3 F L 01/07/24 07:29 Pulse 62 01/07/24 07:29 Resp 18 01/07/24 07:29 BP 149/73 01/07/24 07:29 Pulse Ox 91 L 01/07/24 07:29 FiO2 Intake & Output 01/06/24 01/07/24 01/07/24 18:59 06:59 18:59 Output Total 1700 4700 600 Balance -1700 -4700 -600 Weight 97.5 kg Output: Urine 1700 4700 600 Other: Voiding Method External Catheter External Catheter # Bowel Movements 7 - Labs CBC & Chem 7: 01/07/24 05:16 01/06/24 04:39 Labs: Abnormal Lab Results - Last 24 Hours (Table) 01/06/24 01/06/24 01/06/24 Range/Units 11:38 16:54 21:14 Hgb (13.0-17.0) g/dL Hct (39.6-50.0) % MCV (80.0-97.0) FL MCH (27.0-32.0) pg MCHC (32.0-37.0) g/dL RDW (11.5-14.5) % Lymphocytes # (0.90-5.00) X 10*3/uL Eosinophils # (0.04-0.35) X 10*3/uL POC Glucose (mg/dL) 293 H 291 H 358 H (70-110) mg/dL 01/07/24 01/07/24 Range/Units 05:16 06:37 Hgb 10.2 L (13.0-17.0) g/dL Hct 36.0 L (39.6-50.0) % MCV 76.3 L (80.0-97.0) FL MCH 21.6 L (27.0-32.0) pg MCHC 28.3 L (32.0-37.0) g/dL RDW 24.3 H (11.5-14.5) % Lymphocytes # 0.48 L (0.90-5.00) X 10*3/uL Eosinophils # 0 L (0.04-0.35) X 10*3/uL POC Glucose (mg/dL) 258 H (70-110) mg/dL
[2024-01-07 10:46] LABS: ALT 34 U/L (10-49); AST 23 U/L (14-35); Albumin 3.1 g/dL (3.8-4.9); Albumin/Globulin Ratio 1.24 Ratio (1.60-3.17); Alkaline Phosphatase 85 U/L (41-126); Blood Urea Nitrogen 20.7 mg/dL (9.0-27.0); Calcium 9.2 mg/dL (8.7-10.3); Carbon Dioxide 39.1 mmol/L (21.6-31.8); Chloride 93 mmol/L (96-109); Globulin 2.5 g/dL (1.6-3.3); Glucose 245 mg/dL (70-110); Potassium 4.1 mmol/L (3.5-5.5); Sodium 141 mmol/L (135-145); Total Bilirubin 0.2 mg/dL (0.3-1.2); Total Protein 5.6 g/dL (6.2-8.2)
--- NOTE | 2024-01-07 11:39 | P.PN ---
Subjective Progress Note Date: 01/07/24 Principal diagnosis: right middle lobe masslike consolidation with air bronchogram differential diagnosis pneumonia versus postobstructive pneumonia right parahilar mass 5 x 3.4 cm in size likely neoplasm, however aspart patient diagnosed as a cancer and [place] [facility] about a year ago, he had a bronchoscopy and biopsy, recommended for radiation and chemotherapy but patient did not follow throughwill obtain path report computed tomography scan reports and consult oncology Acute on chronic hypoxic respiratory failure due to baseline COPD congestive heart failure with acute exacerbation congestive heart failure with acute exacerbation, on diuresis Hypotension related to above as well as diuresis, will initiate patient on low- dose midodrine UTI secondary to Klebsiella most likely, on IV Rocephin follow-up on culture and sensitivity reports type 2 diabetes mellitus on short and long-acting insulin January 07, 2024, patient seen and examined during rounds labs reviewed medications reviewed care plan discussed, patient is back on 3 L nasal cannula denies any chest pain, patient is currently n.p.o. for endoscopy oxygen saturation 91% on 3 L nasal cannula, chest x-ray interstitial edema right lower lobe pneumonia versus atelectasi. Proceed with endoscopy as planned 01/05/2024, patient seen eval examined the rounds labs reviewed medications re viewed care plan discussed, patient is awake and alert on 3 L oxygen saturation mid 90s, remains on broad-spectrum antibiotics, patient has transient desaturation post endoscopy however subsequently improved and back to baseline.saturation is 95% hemodynamic status stable patient remains afebrile,S x-ray performed today reviewed persistent right basilar infiltrate are present 01/04/2024, patient seen and evaluated examined during rounds labs reviewed medications reviewed care plan discussed, patient remains afebrile with stable hemodynamics, oxygen saturation 92% on 3 L nasal cannula, ongoing cough congestion shortness of breath present which however stableon bronchodilator inhaled corticosteroids and broad-spectrum antibiotics patient remains on IV Solu-Medrol every 8 hourly 40 mg patient is being given midodrine as well, patient has been evaluated by medical oncology awaiting records. Patient underwent endoscopy upper however postoperatively developed desaturations colonoscopy was canceled 68-year-old male with extensive history of smoking and nicotine use chronic hypoxic respiratory failure uses 2-1/2 L oxygen at home, admitted into the hospital with generalized weakness with history of intermittent fall patient has extensive swelling of the lower extremity with chronic skin changes and early cellulitis. Patient had a chest x-ray which shows bilateral small pleural effus ion more so on the right side compared left side and CHF-like finding, however computed tomography scan of the chest revealed significant finding of right hilar mass/lymphadenopathy about 5 x 3 cm in size. Patient expresses that he has been evaluated at [facility] had a biopsy done about a year ago he was recommended for chemo and radiation therapy but patient couldn't find transportation and did not follow through.he has been on direct oral anticoagulant with the last was yesterday. Due to generalized weakness patient was evaluated in primary care service also noted to be anemic advised to be admitted to hospital patient fact for scheduled for C-spine surgery which has been postponed. 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 Currently patient is on bronchodilators, IV Rocephin,labs are significant for white cells are 10.3, hemoglobin and hematocrit 11/30 MCV 76, when necessary is 31 creatinine 1.2 glucose 129urine culture positive for gram-negative rods p tony has a history of Klebsiella oxytocin in the past Objective - Vital Signs Vital signs: Vital Signs Temp 97.3 F L 01/07/24 07:29 Pulse 62 01/07/24 07:29 Resp 18 01/07/24 07:29 BP 149/73 01/07/24 07:29 Pulse Ox 91 L 01/07/24 07:29 FiO2 Intake & Output 01/06/24 01/07/24 01/07/24 18:59 06:59 18:59 Output Total 1700 4700 600 Balance -1700 -4700 -600 Weight 97.5 kg Output: Urine 1700 4700 600 Other: Voiding Method External Catheter External Catheter # Bowel Movements 7 - Exam - Constitutional General appearance: average body habitus, cooperative, disheveled - EENT Eyes: EOMI, PERRLA ENT: normal oropharynx Ears: bilateral: normal - Neck Neck: normal ROM Carotids: bilateral: upstroke normal Thyroid: bilateral: normal size - Respiratory Respiratory: right: diminished, dullness, bilateral: rales - Cardiovascular Rhythm: regular Heart sounds: normal: S1, S2 - Gastrointestinal General gastrointestinal: normal bowel sounds, soft - Integumentary bilateral +3 edema of lower extremity along with the chronic skin changes earlier erythema suggestive of developing cellulitis - Neurologic Neurologic: CNII-XII intact - Musculoskeletal Musculoskeletal: generalized weakness, strength equal bilaterally - Psychiatric Psychiatric: A&O x's 3, appropriate affect, intact judgment & insight - Labs CBC & Chem 7: 01/07/24 05:16 01/07/24 05:16 Labs: Abnormal Lab Results - Last 24 Hours (Table) 01/06/24 01/06/24 01/06/24 Range/Units 11:38 16:54 21:14 Hgb (13.0-17.0) g/dL Hct (39.6-50.0) % MCV (80.0-97.0) FL MCH (27.0-32.0) pg MCHC (32.0-37.0) g/dL RDW (11.5-14.5) % Lymphocytes # (0.90-5.00) X 10*3/uL Eosinophils # (0.04-0.35) X 10*3/uL Chloride (96-109) mmol/L Carbon Dioxide (21.6-31.8) mmol/L BUN/Creatinine Ratio (12.00-20.00) Ratio Glucose (70-110) mg/dL POC Glucose (mg/dL) 293 H 291 H 358 H (70-110) mg/dL Total Bilirubin (0.3-1.2) mg/dL Total Protein (6.2-8.2) g/dL Albumin (3.8-4.9) g/dL Albumin/Globulin Ratio (1.60-3.17) Ratio 01/07/24 01/07/24 01/07/24 Range/Units 05:16 05:16 06:37 Hgb 10.2 L (13.0-17.0) g/dL Hct 36.0 L (39.6-50.0) % MCV 76.3 L (80.0-97.0) FL MCH 21.6 L (27.0-32.0) pg MCHC 28.3 L (32.0-37.0) g/dL RDW 24.3 H (11.5-14.5) % Lymphocytes # 0.48 L (0.90-5.00) X 10*3/uL Eosinophils # 0 L (0.04-0.35) X 10*3/uL Chloride 93 L (96-109) mmol/L Carbon Dioxide 39.1 H (21.6-31.8) mmol/L BUN/Creatinine Ratio 34.50 H (12.00-20.00) Ratio Glucose 245 H (70-110) mg/dL POC Glucose (mg/dL) 258 H (70-110) mg/dL Total Bilirubin 0.2 L (0.3-1.2) mg/dL Total Protein 5.6 L (6.2-8.2) g/dL Albumin 3.1 L (3.8-4.9) g/dL Albumin/Globulin Ratio 1.24 L (1.60-3.17) Ratio Assessment and Plan Assessment: acute on chronic hypoxic history failure post endoscopy, sats however has improved patient on 3 L nasal cannula sats are low but stable and back to baseline will proceed with eNDOSCOPY PLANNED right middle lobe masslike consolidation with air bronchogram differential diagnosis pneumonia versus postobstructive pneumonia, continue antibiotics oncology following awaiting records from [facility] right parahilar mass 5 x 3.4 cm in size likely neoplasm, however aspart patient diagnosed as a cancer and [facility] about a year ago, he had a bronchoscopy and biopsy, recommended for radiation and chemotherapy but patient did not follow throughwill obtain path report computed tomography scan reports and consult oncology Acute on chronic hypoxic respiratory failure due to baseline COPD congestive heart failure with acute exacerbation congestive heart failure with acute exacerbation, on diuresis Hypotension related to above as well as diuresis, will initiate patient on low- dose midodrine UTI secondary to Klebsiella most likely, on IV Rocephin follow-up on culture and sensitivity reports type 2 diabetes mellitus on short and long-acting insulin Plan: as above Time with Patient: Greater than 30
[2024-01-07] MEDS: IV FLUID CONTINUATION 1,000 ML IV ONE (12:01)
[2024-01-07] MEDS ORDERED: PROPOFOL 10 MG/ML 20 ML VIAL IV ONE (12:01)
[2024-01-07] MEDS: LACTATED RINGERS 1,000 ML IV ONE (12:05)
--- NOTE | 2024-01-07 12:25 | P.OP ---
Date of Procedure: 01/07/24 Preoperative Diagnosis: GI bleed Postoperative Diagnosis: diverticulosis Procedure(s) Performed: colonoscopy Anesthesia: MAC Surgeon: Pablo Knutson Pathology: none sent Condition: stable Disposition: PACU Description of Procedure: the patient's placed on the endoscopy table in the lateral position. He received IV sedation. Digital rectal exam was performed. This revealed no rectal abnormalities. Flexible colonoscope was then placed patient anus passed throughout the entire colon. The ileocecal valve was visualized. Cecum, ascending and transverse colon appeared normal. Descending; there is mild diverticular changes. Scope summer back the rectum this appeared normal. Scope withdrawn for patient. There is known to any active GI bleed. Presumed patient may have had bleeding from diverticular disease.
[2024-01-07 12:52] LABS: Glucose,Whole Blood 201 mg/dL (70-110)
[2024-01-07 16:56] LABS: Glucose,Whole Blood 239 mg/dL (70-110)
[2024-01-07 21:09] LABS: Glucose,Whole Blood 338 mg/dL (70-110)
[2024-01-08 06:02] LABS: Glucose,Whole Blood 397 mg/dL (70-110)
--- NOTE | 2024-01-08 08:03 | P.PN ---
Subjective Progress Note Date: 01/05/24 Principal diagnosis: Reason for follow-up is urinary tract infection Patient is a 68-year-old male with a past medical history significant for diabetes mellitus hypertension CVA TIA COPD current everyday smoker presenting to the hospital for evaluation of increased weakness and difficulty breathing, patient did have elevated white count did have a positive UA concer shahana for possible drug-resistant UTI prompting this consultation. Patient also have abnormal CT of the chest with masslike consolidation apparently has been diagnosed with the lung cancer last year as per discussion with the pulmonary. On today's evaluation that is 01/05/2024,the patient remains to be afebrile, patient is on 3 L nasal cannula supplemental oxygen and denies any shortness of breath no chest pain or any worsening cough.Patient denies having any nausea or vomiting, no abdominal pain and no diarrhea has been reported. Patient white count 6.59, creatinine 0.7 Objective - Vital Signs Vital signs: Vital Signs Temp 98.1 F 01/05/24 13:20 Pulse 62 01/05/24 13:20 Resp 18 01/05/24 13:20 BP 147/73 01/05/24 13:20 Pulse Ox 97 01/05/24 13:20 FiO2 Intake & Output 01/04/24 01/05/24 01/05/24 18:59 06:59 18:59 Intake Total 200 Output Total 700 1500 Balance -500 -1500 Weight 99.5 kg Intake: IV 200 Output: Urine 700 1500 Other: Voiding Method External Catheter # Bowel Movements 1 1 2 - Exam GENERAL DESCRIPTION: An elderly male lying in bed in no distress RESPIRATORY SYSTEM: Unlabored breathing , coarse breath sounds bilaterally HEART: S1 S2 regular rate and rhythm , ABDOMEN: Soft , no tenderness EXTREMITIES: Bilateral lower extremity with some swelling and superficial ulceration - Labs CBC & Chem 7: 01/07/24 05:16 01/07/24 05:16 Labs: Abnormal Lab Results - Last 24 Hours (Table) 01/04/24 01/04/24 01/05/24 Range/Units 16:33 20:14 04:47 RBC 4.39 L (4.40-5.60) X 10*6/uL Hgb 9.2 L (13.0-17.0) g/dL Hct 33.2 L (39.6-50.0) % MCV 75.6 L (80.0-97.0) FL MCH 21.0 L (27.0-32.0) pg MCHC 27.7 L (32.0-37.0) g/dL RDW 24.0 H (11.5-14.5) % Immature Gran # 0.06 H (0.00-0.04) X 10*3/uL Lymphocytes # 0.39 L (0.90-5.00) X 10*3/uL Eosinophils # 0 L (0.04-0.35) X 10*3/uL Chloride (96-109) mmol/L Carbon Dioxide (21.6-31.8) mmol/L BUN/Creatinine Ratio (12.00-20.00) Ratio Glucose (70-110) mg/dL POC Glucose (mg/dL) 225 H 304 H (70-110) mg/dL Total Bilirubin (0.3-1.2) mg/dL AST (14-35) U/L ALT (10-49) U/L Total Protein (6.2-8.2) g/dL Albumin (3.8-4.9) g/dL Albumin/Globulin Ratio (1.60-3.17) Ratio 01/05/24 01/05/24 01/05/24 Range/Units 04:47 06:09 11:09 RBC (4.40-5.60) X 10*6/uL Hgb (13.0-17.0) g/dL Hct (39.6-50.0) % MCV (80.0-97.0) FL MCH (27.0-32.0) pg MCHC (32.0-37.0) g/dL RDW (11.5-14.5) % Immature Gran # (0.00-0.04) X 10*3/uL Lymphocytes # (0.90-5.00) X 10*3/uL Eosinophils # (0.04-0.35) X 10*3/uL Chloride 94 L (96-109) mmol/L Carbon Dioxide 32.6 H (21.6-31.8) mmol/L BUN/Creatinine Ratio 35.29 H (12.00-20.00) Ratio Glucose 229 H (70-110) mg/dL POC Glucose (mg/dL) 255 H 254 H (70-110) mg/dL Total Bilirubin <0.2 L (0.3-1.2) mg/dL AST 9 L (14-35) U/L ALT 7 L (10-49) U/L Total Protein 5.9 L (6.2-8.2) g/dL Albumin 3.1 L (3.8-4.9) g/dL Albumin/Globulin Ratio 1.11 L (1.60-3.17) Ratio Assessment and Plan (1) Urinary tract infection Current Visit: Yes Status: Acute Code(s): N39.0 - URINARY TRACT INFECTION, SITE NOT SPECIFIED SNOMED Code(s): 23850859 Plan: 1patient presented to hospital with generalized weakness which is likely multifactorial patient did have some urinary symptoms positive UA concerning for symptomatic UTI with a last urine culture positive for Klebsiella that was intermediate to Unasyn 2-patient also have abnormal CT of the chest concerning for masslike consolidation and lymphadenopathy concerning for possible malignancy, in this patient who did have a diagnosis of lung cancer last year but did not have any follow-up pulmonary and oncology following the patient 3patient urine culture grew Klebsiella that is sensitive to ceftriaxone 4-patient is afebrile patient white count normal, patient will be treated with Rocephin and continue supportive care Dictation was produced using [employer] dictation software. please excuse any grammatical, word or spelling errors. Time with Patient: Less than 30
--- NOTE | 2024-01-08 08:03 | P.PN ---
Subjective Progress Note Date: 01/06/24 Principal diagnosis: Reason for follow-up is urinary tract infection Patient is a 68-year-old male with a past medical history significant for diabetes mellitus hypertension CVA TIA COPD current everyday smoker presenting to the hospital for evaluation of increased weakness and difficulty breathing, patient did have elevated white count did have a positive UA concer shahana for possible drug-resistant UTI prompting this consultation. Patient also have abnormal CT of the chest with masslike consolidation apparently has been diagnosed with the lung cancer last year as per discussion with the pulmonary. On today's evaluation that is 01/06/2024, the patient continues to be afebrile, the patient is on 3 L nasal oxygen and breathing comfortably, the Pt denies having any chest pain continue to have cough but denies any worsening cough or sputum production, the patient denies having any abdominal pain no vomiting or any diarrhea has been reported by the nursing staff. Patient white count is 6.32, creatinine 0.7 Objective - Vital Signs Vital signs: Vital Signs Temp 97.8 F 01/06/24 07:53 Pulse 62 01/06/24 08:39 Resp 17 01/06/24 07:53 BP 137/67 01/06/24 07:53 Pulse Ox 97 01/06/24 08:25 FiO2 Intake & Output 01/05/24 01/06/24 01/06/24 18:59 06:59 18:59 Output Total 1800 3150 Balance -1800 -3150 Weight 97.5 kg 97.5 kg Output: Urine 1800 3150 Other: Voiding Method External Catheter External Catheter # Bowel Movements 2 - Exam GENERAL DESCRIPTION: An elderly male lying in bed in no distress RESPIRATORY SYSTEM: Unlabored breathing , coarse breath sounds bilaterally HEART: S1 S2 regular rate and rhythm , ABDOMEN: Soft , no tenderness EXTREMITIES: Bilateral lower extremity with some swelling and superficial ulceration - Labs CBC & Chem 7: 01/07/24 05:16 01/07/24 05:16 Labs: Abnormal Lab Results - Last 24 Hours (Table) 01/05/24 01/05/24 01/06/24 Range/Units 16:09 20:36 04:39 Hgb 9.4 L (13.0-17.0) g/dL Hct 34.4 L (39.6-50.0) % MCV 77.8 L (80.0-97.0) FL MCH 21.3 L (27.0-32.0) pg MCHC 27.3 L (32.0-37.0) g/dL RDW 23.8 H (11.5-14.5) % Lymphocytes # 0.31 L (0.90-5.00) X 10*3/uL Eosinophils # 0 L (0.04-0.35) X 10*3/uL Chloride (96-109) mmol/L Carbon Dioxide (21.6-31.8) mmol/L BUN/Creatinine Ratio (12.00-20.00) Ratio Glucose (70-110) mg/dL POC Glucose (mg/dL) 289 H 323 H (70-110) mg/dL Total Bilirubin (0.3-1.2) mg/dL AST (14-35) U/L Total Protein (6.2-8.2) g/dL Albumin (3.8-4.9) g/dL Albumin/Globulin Ratio (1.60-3.17) Ratio 01/06/24 01/06/24 01/06/24 Range/Units 04:39 06:28 11:38 Hgb (13.0-17.0) g/dL Hct (39.6-50.0) % MCV (80.0-97.0) FL MCH (27.0-32.0) pg MCHC (32.0-37.0) g/dL RDW (11.5-14.5) % Lymphocytes # (0.90-5.00) X 10*3/uL Eosinophils # (0.04-0.35) X 10*3/uL Chloride 93 L (96-109) mmol/L Carbon Dioxide 34.8 H (21.6-31.8) mmol/L BUN/Creatinine Ratio 32.71 H (12.00-20.00) Ratio Glucose 305 H (70-110) mg/dL POC Glucose (mg/dL) 296 H 293 H (70-110) mg/dL Total Bilirubin <0.2 L (0.3-1.2) mg/dL AST 10 L (14-35) U/L Total Protein 5.9 L (6.2-8.2) g/dL Albumin 3.2 L (3.8-4.9) g/dL Albumin/Globulin Ratio 1.19 L (1.60-3.17) Ratio Assessment and Plan (1) Urinary tract infection Current Visit: Yes Status: Acute Code(s): N39.0 - URINARY TRACT INFECTION, SITE NOT SPECIFIED SNOMED Code(s): 78152968 Plan: 1patient presented to hospital with generalized weakness which is likely multifactorial patient did have some urinary symptoms positive UA concerning for symptomatic UTI with a last urine culture positive for Klebsiella that was intermediate to Unasyn 2-patient also have abnormal CT of the chest concerning for masslike consolidation and lymphadenopathy concerning for possible malignancy, in this patient who did have a diagnosis of lung cancer last year but did not have any follow-up pulmonary and oncology following the patient 3patient urine culture grew Klebsiella that is sensitive to ceftriaxone 4-patient is afebrile patient white count normal, patient to continue with Rocephin while inpatient and monitor clinical course closely Dictation was produced using [employer] dictation software. please excuse any grammatical, word or spelling errors. Time with Patient: Less than 30
--- NOTE | 2024-01-08 08:05 | P.PN ---
Subjective Progress Note Date: 01/07/24 Principal diagnosis: Reason for follow-up is urinary tract infection Patient is a 68-year-old male with a past medical history significant for diabetes mellitus hypertension CVA TIA COPD current everyday smoker presenting to the hospital for evaluation of increased weakness and difficulty breathing, patient did have elevated white count did have a positive UA concer shahana for possible drug-resistant UTI prompting this consultation. Patient also have abnormal CT of the chest with masslike consolidation apparently has been diagnosed with the lung cancer last year as per discussion with the pulmonary. On today's evaluation that is 01/07/2024, Patient is afebrile patient is currently on 3 L nasal cannula oxygen and denies having any shortness of breath, the patient denies any chest pain or any worsening cough, the patient denies any nausea vomiting did not have any abdominal pain and no diarrhea, patient is asking for when he can eat. Patient white count is 7.44, creatinine 0.6 Objective - Vital Signs Vital signs: Vital Signs Temp 97.6 F 01/07/24 13:34 Pulse 52 L 01/07/24 13:34 Resp 17 01/07/24 13:34 BP 121/62 01/07/24 13:34 Pulse Ox 94 L 01/07/24 13:34 FiO2 Intake & Output 01/06/24 01/07/24 01/07/24 18:59 06:59 18:59 Intake Total 200 Output Total 1700 4700 600 Balance -1700 -4700 -400 Weight 97.5 kg Intake: IV 200 Output: Urine 1700 4700 600 Other: Voiding Method External Catheter External Catheter External Catheter # Bowel Movements 7 1 - Exam GENERAL DESCRIPTION: An elderly male lying in bed in no distress RESPIRATORY SYSTEM: Unlabored breathing , coarse breath sounds bilaterally HEART: S1 S2 regular rate and rhythm , ABDOMEN: Soft , no tenderness EXTREMITIES: Bilateral lower extremity with some swelling and superficial ulceration - Labs CBC & Chem 7: 01/07/24 05:16 01/07/24 05:16 Labs: Abnormal Lab Results - Last 24 Hours (Table) 01/06/24 01/06/24 01/07/24 Range/Units 16:54 21:14 05:16 Hgb 10.2 L (13.0-17.0) g/dL Hct 36.0 L (39.6-50.0) % MCV 76.3 L (80.0-97.0) FL MCH 21.6 L (27.0-32.0) pg MCHC 28.3 L (32.0-37.0) g/dL RDW 24.3 H (11.5-14.5) % Lymphocytes # 0.48 L (0.90-5.00) X 10*3/uL Eosinophils # 0 L (0.04-0.35) X 10*3/uL Chloride (96-109) mmol/L Carbon Dioxide (21.6-31.8) mmol/L BUN/Creatinine Ratio (12.00-20.00) Ratio Glucose (70-110) mg/dL POC Glucose (mg/dL) 291 H 358 H (70-110) mg/dL Total Bilirubin (0.3-1.2) mg/dL Total Protein (6.2-8.2) g/dL Albumin (3.8-4.9) g/dL Albumin/Globulin Ratio (1.60-3.17) Ratio 01/07/24 01/07/24 01/07/24 Range/Units 05:16 06:37 12:51 Hgb (13.0-17.0) g/dL Hct (39.6-50.0) % MCV (80.0-97.0) FL MCH (27.0-32.0) pg MCHC (32.0-37.0) g/dL RDW (11.5-14.5) % Lymphocytes # (0.90-5.00) X 10*3/uL Eosinophils # (0.04-0.35) X 10*3/uL Chloride 93 L (96-109) mmol/L Carbon Dioxide 39.1 H (21.6-31.8) mmol/L BUN/Creatinine Ratio 34.50 H (12.00-20.00) Ratio Glucose 245 H (70-110) mg/dL POC Glucose (mg/dL) 258 H 201 H (70-110) mg/dL Total Bilirubin 0.2 L (0.3-1.2) mg/dL Total Protein 5.6 L (6.2-8.2) g/dL Albumin 3.1 L (3.8-4.9) g/dL Albumin/Globulin Ratio 1.24 L (1.60-3.17) Ratio Assessment and Plan (1) Urinary tract infection Current Visit: Yes Status: Acute Code(s): N39.0 - URINARY TRACT INFECTION, SITE NOT SPECIFIED SNOMED Code(s): 18540662 Plan: 1patient presented to hospital with generalized weakness which is likely multifactorial patient did have some urinary symptoms positive UA concerning for symptomatic UTI with a last urine culture positive for Klebsiella that was intermediate to Unasyn 2-patient also have abnormal CT of the chest concerning for masslike consolidation and lymphadenopathy concerning for possible malignancy, in this patient who did have a diagnosis of lung cancer last year but did not have any follow-up pulmonary and oncology following the patient 3patient urine culture grew Klebsiella that is sensitive to ceftriaxone 4-patient is afebrile patient white count normal, patient currently covered with Rocephin has received adequate biotic for the UTI however there was also concern for pneumonia possible malignancy and postobstructive component hence we will continue patient on Rocephin at this point Dictation was produced using [employer] dictation software. please excuse any grammatical, word or spelling errors. Time with Patient: Less than 30
[2024-01-08 10:23] LABS: Basophils # (A) 0.02 X 10*3/uL (0.00-0.10); Basophils % (A) 0.2 %; Eosinophils # (A) 0 X 10*3/uL (0.04-0.35); Eosinophils % (A) 0 %; HCT 37.4 % (39.6-50.0); HGB 10.6 g/dL (13.0-17.0); Lymphocytes # (A) 0.44 X 10*3/uL (0.90-5.00); Lymphocytes % (A) 5.3 %; MCHC 28.3 g/dL (32.0-37.0); MCV 77.8 FL (80.0-97.0); Mean Platelet Volume 12.1 FL (9.5-12.2); Monocytes # (A) 0.54 X 10*3/uL (0.20-1.00); Monocytes % (A) 6.6 %; NRBC Per 100 WBC 0 X 10*3/uL (0.00-0.01); Neutrophils % (A) 87.5 %; Platelet Count 264 X 10*3/uL (140-440); RBC 4.81 X 10*6/uL (4.40-5.60); RDW 24.1 % (11.5-14.5); WBC 8.23 X 10*3/uL (4.50-10.00)
[2024-01-08 10:37] LABS: ALT 27 U/L (10-49); AST 14 U/L (14-35); Albumin 2.9 g/dL (3.8-4.9); Albumin/Globulin Ratio 1.26 Ratio (1.60-3.17); Alkaline Phosphatase 88 U/L (41-126); BUN/Creat Ratio 39.67 Ratio (12.00-20.00); Blood Urea Nitrogen 35.7 mg/dL (9.0-27.0); Calcium 9.2 mg/dL (8.7-10.3); Carbon Dioxide 39.4 mmol/L (21.6-31.8); Chloride 87 mmol/L (96-109); Globulin 2.3 g/dL (1.6-3.3); Glucose 397 mg/dL (70-110); Sodium 133 mmol/L (135-145); Total Bilirubin <0.2 mg/dL (0.3-1.2); Total Protein 5.2 g/dL (6.2-8.2)
[2024-01-08 12:07] LABS: Glucose,Whole Blood 495 mg/dL (70-110)
[2024-01-08] MEDS: INSULIN ASPART (NovoLOG) 100 UNIT/ML VIAL SQ ONE ×2 (12:46→21:55)
--- NOTE | 2024-01-08 15:08 | P.PN ---
Subjective Progress Note Date: 01/08/24 Principal diagnosis: right middle lobe masslike consolidation with air bronchogram differential diagnosis pneumonia versus postobstructive pneumonia right parahilar mass 5 x 3.4 cm in size likely neoplasm, however aspart patient diagnosed as a cancer and [place] [facility] about a year ago, he had a bronchoscopy and biopsy, recommended for radiation and chemotherapy but patient did not follow throughwill obtain path report computed tomography scan reports and consult oncology Acute on chronic hypoxic respiratory failure due to baseline COPD congestive heart failure with acute exacerbation congestive heart failure with acute exacerbation, on diuresis Hypotension related to above as well as diuresis, will initiate patient on low- dose midodrine UTI secondary to Klebsiella most likely, on IV Rocephin follow-up on culture and sensitivity reports type 2 diabetes mellitus on short and long-acting insulin 01/08/2024, patient seen eval examined during rounds labs reviewed medications reviewed, patient remains on antigen is a cannula, oxygen saturation mid 90s,96% on 3 L, blood pressure 120/65, afebrile with temperature 90.7, chemistry today reviewed sodium is 1:30 position for BUN/creatinine is a 35/0.9 slightly up, blood glucose 97, white cell count 8.2 hemoglobin and hematocrit is 10.6/37urine culture came back positive for Klebsiellapatient is on the Rocephin, and ID service following, also has been IV steroids and bronchodilator disease following for mass is status post colonoscopy tolerated well no diverticulosis seen otherwise no significant pathology seen January 07, 2024, patient seen and examined during rounds labs reviewed medications reviewed care plan discussed, patient is back on 3 L nasal cannula denies any chest pain, patient is currently n.p.o. for endoscopy oxygen saturation 91% on 3 L nasal cannula, chest x-ray interstitial edema right lower lobe pneumonia versus atelectasi. Proceed with endoscopy as planned 01/05/2024, patient seen eval examined the rounds labs reviewed medications reviewed care plan discussed, patient is awake and alert on 3 L oxygen saturation mid 90s, remains on broad-spectrum antibiotics, patient has transient desaturation post endoscopy however subsequently improved and back to baseline.s aturation is 95% hemodynamic status stable patient remains afebrile,S x-ray performed today reviewed persistent right basilar infiltrate are present 01/04/2024, patient seen and evaluated examined during rounds labs reviewed medications reviewed care plan discussed, patient remains afebrile with stable hemodynamics, oxygen saturation 92% on 3 L nasal cannula, ongoing cough congestion shortness of breath present which however stableon bronchodilator inhaled corticosteroids and broad-spectrum antibiotics patient remains on IV Solu-Medrol every 8 hourly 40 mg patient is being given midodrine as well, patient has been evaluated by medical oncology awaiting records. Patient underwent endoscopy upper however postoperatively developed desaturations colonoscopy was canceled 68-year-old male with extensive history of smoking and nicotine use chronic hypoxic respiratory failure uses 2-1/2 L oxygen at home, admitted into the hospital with generalized weakness with history of intermittent fall patient has extensive swelling of the lower extremity with chronic skin changes and early cellulitis. Patient had a chest x-ray which shows bilateral small pleural effusion more so on the right side compared left side and CHF-like finding, however computed tomography scan of the chest revealed significant finding of right hilar mass/lymphadenopathy about 5 x 3 cm in size. Patient expresses that he has been evaluated at [facility] had a biopsy done about a year ago he was recommended for chemo and radiation therapy but patient couldn't find transportation and did not follow through.he has been on direct oral anticoagulant with the last was yesterday. Due to generalized weakness patient was evaluated in primary care service also noted to be anemic advised to be admitted to hospital patient fact for scheduled for C-spine surgery which has been postponed. 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 Currently patient is on bronchodilators, IV Rocephin,labs are significant for white cells are 10.3, hemoglobin and hematocrit 11/30 MCV 76, when necessary is 31 creatinine 1.2 glucose 129urine culture positive for gram-negative rods patient has a history of Klebsiella oxytocin in the past Objective - Vital Signs Vital signs: Vital Signs Temp 96.7 F L 01/08/24 07:07 Pulse 65 01/08/24 07:07 Resp 16 01/08/24 07:07 BP 122/66 01/08/24 07:07 Pulse Ox 96 01/08/24 09:28 FiO2 Intake & Output 01/07/24 01/08/24 01/08/24 18:59 06:59 18:59 Intake Total 200 Output Total 600 2350 Balance -400 -2350 Weight 97.5 kg Intake: IV 200 Output: Urine 600 2350 Other: Voiding Method External Catheter External Catheter # Bowel Movements 1 - Exam - Constitutional General appearance: average body habitus, cooperative, disheveled - EENT Eyes: EOMI, PERRLA ENT: normal oropharynx Ears: bilateral: normal - Neck Neck: normal ROM Carotids: bilateral: upstroke normal Thyroid: bilateral: normal size - Respiratory Respiratory: right: diminished, dullness, bilateral: rales - Cardiovascular Rhythm: regular Heart sounds: normal: S1, S2 - Gastrointestinal General gastrointestinal: normal bowel sounds, soft - Integumentary bilateral +3 edema of lower extremity along with the chronic skin changes earlier erythema suggestive of developing cellulitis - Neurologic Neurologic: CNII-XII intact - Musculoskeletal Musculoskeletal: generalized weakness, strength equal bilaterally - Psychiatric Psychiatric: A&O x's 3, appropriate affect, intact judgment & insight - Labs CBC & Chem 7: 01/08/24 07:24 01/08/24 07:24 Labs: Abnormal Lab Results - Last 24 Hours (Table) 01/07/24 01/07/24 01/08/24 Range/Units 16:54 21:08 06:01 Hgb (13.0-17.0) g/dL Hct (39.6-50.0) % MCV (80.0-97.0) FL MCH (27.0-32.0) pg MCHC (32.0-37.0) g/dL RDW (11.5-14.5) % Lymphocytes # (0.90-5.00) X 10*3/uL Eosinophils # (0.04-0.35) X 10*3/uL Sodium (135-145) mmol/L Chloride (96-109) mmol/L Carbon Dioxide (21.6-31.8) mmol/L BUN (9.0-27.0) mg/dL BUN/Creatinine Ratio (12.00-20.00) Ratio Glucose (70-110) mg/dL POC Glucose (mg/dL) 239 H 338 H 397 H (70-110) mg/dL Total Bilirubin (0.3-1.2) mg/dL Total Protein (6.2-8.2) g/dL Albumin (3.8-4.9) g/dL Albumin/Globulin Ratio (1.60-3.17) Ratio 01/08/24 01/08/24 01/08/24 Range/Units 07:24 07:24 12:05 Hgb 10.6 L (13.0-17.0) g/dL Hct 37.4 L (39.6-50.0) % MCV 77.8 L (80.0-97.0) FL MCH 22.0 L (27.0-32.0) pg MCHC 28.3 L (32.0-37.0) g/dL RDW 24.1 H (11.5-14.5) % Lymphocytes # 0.44 L (0.90-5.00) X 10*3/uL Eosinophils # 0 L (0.04-0.35) X 10*3/uL Sodium 133 L (135-145) mmol/L Chloride 87 L (96-109) mmol/L Carbon Dioxide 39.4 H (21.6-31.8) mmol/L BUN 35.7 H (9.0-27.0) mg/dL BUN/Creatinine Ratio 39.67 H (12.00-20.00) Ratio Glucose 397 H (70-110) mg/dL POC Glucose (mg/dL) 495 H (70-110) mg/dL Total Bilirubin <0.2 L (0.3-1.2) mg/dL Total Protein 5.2 L (6.2-8.2) g/dL Albumin 2.9 L (3.8-4.9) g/dL Albumin/Globulin Ratio 1.26 L (1.60-3.17) Ratio Assessment and Plan Assessment: acute on chronic hypoxic history failure post endoscopy, upper and lower tolerated well nowsats however has improved patient on 3 L nasal cannula sats are low but stable and back to baseline right middle lobe masslike consolidation with air bronchogram differential diagnosis pneumonia versus postobstructive pneumonia, continue antibiotics oncology following awaiting records from [facility] right parahilar mass 5 x 3.4 cm in size likely neoplasm, however as per patient diagnosed as a cancer and [facility] about a year ago, he had a bronchoscopy and biopsy, recommended for radiation and chemotherapy but patient did not f ollow through,will obtain path report computed tomography scan reports and consult oncology, notes noted and appreciated patient requested care to be performed over here in [place] 78 Acute on chronic hypoxic respiratory failure due to baseline COPD congestive heart failure with acute exacerbation congestive heart failure with acute exacerbation, on diuresis Hypotension related to above as well as diuresis, will initiate patient on low- dose midodrine UTI secondary to Klebsiella most likely, on IV Rocephin follow-up on culture and sensitivity reports type 2 diabetes mellitus on short and long-acting insulin Plan: as above Time with Patient: Greater than 30
--- NOTE | 2024-01-08 15:08 | P.PN ---
Subjective Progress Note Date: 01/08/24 CHIEF COMPLAINT: Anemia HISTORY OF PRESENT ILLNESS: Patient is status post EGD revealing antral gastritis. Patient is status post colonoscopy that reported diverticulosis. Patient had mild abdominal pain earlier after eating breakfast and now improved. Denies any nausea or vomiting. Afebrile. Hemoglobin 10.6 PHYSICAL EXAM: VITAL SIGNS: Reviewed. GENERAL: no acute distress. ABDOMEN: Soft. Nondistended. Nontender. ASSESSMENT: 1. Anemia. Status post EGD revealing antral gastritis. Colonoscopy with diverticulosis. No active bleeding. 2. Lung Cancer PLAN: -Patient can be discharged from surgical standpoint -Continue Protonix at discharge Physician Personnel Records Clerk note has been reviewed by physician. Signing provider agrees with the documented findings, assessment, and plan of care. Objective - Vital Signs Vital signs: Vital Signs Temp 96.7 F L 01/08/24 07:07 Pulse 65 01/08/24 07:07 Resp 16 01/08/24 07:07 BP 122/66 01/08/24 07:07 Pulse Ox 96 01/08/24 09:28 FiO2 Intake & Output 01/07/24 01/08/24 01/08/24 18:59 06:59 18:59 Intake Total 200 Output Total 600 2350 Balance -400 -2350 Weight 97.5 kg Intake: IV 200 Output: Urine 600 2350 Other: Voiding Method External Catheter External Catheter # Bowel Movements 1 - Labs CBC & Chem 7: 01/08/24 07:24 01/08/24 07:24 Labs: Abnormal Lab Results - Last 24 Hours (Table) 01/07/24 01/07/24 01/08/24 Range/Units 16:54 21:08 06:01 Hgb (13.0-17.0) g/dL Hct (39.6-50.0) % MCV (80.0-97.0) FL MCH (27.0-32.0) pg MCHC (32.0-37.0) g/dL RDW (11.5-14.5) % Lymphocytes # (0.90-5.00) X 10*3/uL Eosinophils # (0.04-0.35) X 10*3/uL Sodium (135-145) mmol/L Chloride (96-109) mmol/L Carbon Dioxide (21.6-31.8) mmol/L BUN (9.0-27.0) mg/dL BUN/Creatinine Ratio (12.00-20.00) Ratio Glucose (70-110) mg/dL POC Glucose (mg/dL) 239 H 338 H 397 H (70-110) mg/dL Total Bilirubin (0.3-1.2) mg/dL Total Protein (6.2-8.2) g/dL Albumin (3.8-4.9) g/dL Albumin/Globulin Ratio (1.60-3.17) Ratio 01/08/24 01/08/24 01/08/24 Range/Units 07:24 07:24 12:05 Hgb 10.6 L (13.0-17.0) g/dL Hct 37.4 L (39.6-50.0) % MCV 77.8 L (80.0-97.0) FL MCH 22.0 L (27.0-32.0) pg MCHC 28.3 L (32.0-37.0) g/dL RDW 24.1 H (11.5-14.5) % Lymphocytes # 0.44 L (0.90-5.00) X 10*3/uL Eosinophils # 0 L (0.04-0.35) X 10*3/uL Sodium 133 L (135-145) mmol/L Chloride 87 L (96-109) mmol/L Carbon Dioxide 39.4 H (21.6-31.8) mmol/L BUN 35.7 H (9.0-27.0) mg/dL BUN/Creatinine Ratio 39.67 H (12.00-20.00) Ratio Glucose 397 H (70-110) mg/dL POC Glucose (mg/dL) 495 H (70-110) mg/dL Total Bilirubin <0.2 L (0.3-1.2) mg/dL Total Protein 5.2 L (6.2-8.2) g/dL Albumin 2.9 L (3.8-4.9) g/dL Albumin/Globulin Ratio 1.26 L (1.60-3.17) Ratio
[2024-01-08 16:58] LABS: Glucose,Whole Blood 340 mg/dL (70-110)
[2024-01-08 21:27] LABS: Glucose,Whole Blood 414 mg/dL (70-110)
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
--- NOTE | 2024-01-08 22:18 | PN ---
PROGRESS NOTE A 68-year-old, status post EGD. EGD revealing antral gastritis, status post colonoscopy that reported diverticulosis now improved. Hemoglobin is 10.6. Waiting for family to take him home. Possibly have to go to a care home if family will not take him home. Anemia, status post EGD. He has diverticulitis. No active bleeding. Lung cancer. He is off his blood thinner. Continues to do well, improved every day. Hemoglobin is 10.6, sodium 133, potassium 4.0. Sugars in mid 300s to 400s. We will possibly start him on insulin at this time as he is still high on oral medications. We will also start the Solu-Medrol with just checking the sugar a little high and monitor . If his sugars come down, I will send him home tomorrow. AL / REDD: [id number] /
[2024-01-09 06:04] LABS: Glucose,Whole Blood 212 mg/dL (70-110)
[2024-01-09 09:16] LABS: Basophils # (A) 0.01 X 10*3/uL (0.00-0.10); Basophils % (A) 0.1 %; Eosinophils # (A) 0.03 X 10*3/uL (0.04-0.35); Eosinophils % (A) 0.3 %; HCT 37.8 % (39.6-50.0); HGB 10.6 g/dL (13.0-17.0); Lymphocytes # (A) 1.28 X 10*3/uL (0.90-5.00); Lymphocytes % (A) 12.5 %; MCH 21.7 pg (27.0-32.0); MCV 77.5 FL (80.0-97.0); Monocytes # (A) 1.08 X 10*3/uL (0.20-1.00); Monocytes % (A) 10.6 %; NRBC Per 100 WBC 0 X 10*3/uL (0.00-0.01); Neutrophils # (A) 7.79 X 10*3/uL (1.80-7.70); Neutrophils % (A) 76.2 %; Platelet Count 297 X 10*3/uL (140-440); RBC 4.88 X 10*6/uL (4.40-5.60); RDW 24.6 % (11.5-14.5); WBC 10.22 X 10*3/uL (4.50-10.00)
[2024-01-09 09:43] LABS: ALT 39 U/L (10-49); AST 18 U/L (14-35); Albumin 3.1 g/dL (3.8-4.9); Albumin/Globulin Ratio 1.41 Ratio (1.60-3.17); Alkaline Phosphatase 90 U/L (41-126); BUN/Creat Ratio 48.25 Ratio (12.00-20.00); Blood Urea Nitrogen 38.6 mg/dL (9.0-27.0); Calcium 9.3 mg/dL (8.7-10.3); Chloride 91 mmol/L (96-109); Globulin 2.2 g/dL (1.6-3.3); Glucose 194 mg/dL (70-110); Potassium 3.8 mmol/L (3.5-5.5); Sodium 138 mmol/L (135-145); Total Bilirubin 0.2 mg/dL (0.3-1.2); Total Protein 5.3 g/dL (6.2-8.2)
[2024-01-09 11:36] LABS: Glucose,Whole Blood 325 mg/dL (70-110)
--- NOTE | 2024-01-09 12:26 | P.PN ---
Subjective Progress Note Date: 01/08/24 Principal diagnosis: Reason for follow-up is urinary tract infection Patient is a 68-year-old male with a past medical history significant for diabetes mellitus hypertension CVA TIA COPD current everyday smoker presenting to the hospital for evaluation of increased weakness and difficulty breathing, patient did have elevated white count did have a positive UA concer shahana for possible drug-resistant UTI prompting this consultation. Patient also have abnormal CT of the chest with masslike consolidation apparently has been diagnosed with the lung cancer last year as per discussion with the pulmonary. On today's evaluation that is 01/08/2024, patient has been afebrile, patient is breathing comfortably and is currently on 3 L nasal cannula oxygen patient denies having chest pain still complaining of some cough not bring up any sputum patient denies nausea vomiting or diarrhea and no abdominal pain Patient did have white count of 8.23, creatinine 0.9 Objective - Vital Signs Vital signs: Vital Signs Temp 96.7 F L 01/08/24 07:07 Pulse 65 01/08/24 07:07 Resp 16 01/08/24 07:07 BP 122/66 01/08/24 07:07 Pulse Ox 96 01/08/24 09:28 FiO2 Intake & Output 01/07/24 01/08/24 01/08/24 18:59 06:59 18:59 Intake Total 200 Output Total 600 2350 Balance -400 -2350 Weight 97.5 kg Intake: IV 200 Output: Urine 600 2350 Other: Voiding Method External Catheter External Catheter # Bowel Movements 1 - Exam GENERAL DESCRIPTION: An elderly male lying in bed in no distress RESPIRATORY SYSTEM: Unlabored breathing , coarse breath sounds bilaterally HEART: S1 S2 regular rate and rhythm , ABDOMEN: Soft , no tenderness EXTREMITIES: Bilateral lower extremity with some swelling and superficial ulceration - Labs CBC & Chem 7: 01/09/24 06:22 01/09/24 06:22 Labs: Abnormal Lab Results - Last 24 Hours (Table) 01/07/24 01/07/24 01/08/24 Range/Units 16:54 21:08 06:01 Hgb (13.0-17.0) g/dL Hct (39.6-50.0) % MCV (80.0-97.0) FL MCH (27.0-32.0) pg MCHC (32.0-37.0) g/dL RDW (11.5-14.5) % Lymphocytes # (0.90-5.00) X 10*3/uL Eosinophils # (0.04-0.35) X 10*3/uL Sodium (135-145) mmol/L Chloride (96-109) mmol/L Carbon Dioxide (21.6-31.8) mmol/L BUN (9.0-27.0) mg/dL BUN/Creatinine Ratio (12.00-20.00) Ratio Glucose (70-110) mg/dL POC Glucose (mg/dL) 239 H 338 H 397 H (70-110) mg/dL Total Bilirubin (0.3-1.2) mg/dL Total Protein (6.2-8.2) g/dL Albumin (3.8-4.9) g/dL Albumin/Globulin Ratio (1.60-3.17) Ratio 01/08/24 01/08/24 01/08/24 Range/Units 07:24 07:24 12:05 Hgb 10.6 L (13.0-17.0) g/dL Hct 37.4 L (39.6-50.0) % MCV 77.8 L (80.0-97.0) FL MCH 22.0 L (27.0-32.0) pg MCHC 28.3 L (32.0-37.0) g/dL RDW 24.1 H (11.5-14.5) % Lymphocytes # 0.44 L (0.90-5.00) X 10*3/uL Eosinophils # 0 L (0.04-0.35) X 10*3/uL Sodium 133 L (135-145) mmol/L Chloride 87 L (96-109) mmol/L Carbon Dioxide 39.4 H (21.6-31.8) mmol/L BUN 35.7 H (9.0-27.0) mg/dL BUN/Creatinine Ratio 39.67 H (12.00-20.00) Ratio Glucose 397 H (70-110) mg/dL POC Glucose (mg/dL) 495 H (70-110) mg/dL Total Bilirubin <0.2 L (0.3-1.2) mg/dL Total Protein 5.2 L (6.2-8.2) g/dL Albumin 2.9 L (3.8-4.9) g/dL Albumin/Globulin Ratio 1.26 L (1.60-3.17) Ratio Assessment and Plan (1) Urinary tract infection Current Visit: Yes Status: Acute Code(s): N39.0 - URINARY TRACT INFECTION, S ITE NOT SPECIFIED SNOMED Code(s): 37607535 Plan: 1patient presented to hospital with generalized weakness which is likely multifactorial patient did have some urinary symptoms positive UA concerning for symptomatic UTI with a last urine culture positive for Klebsiella that was intermediate to Unasyn 2-patient also have abnormal CT of the chest concerning for masslike consolidation and lymphadenopathy concerning for possible malignancy, in this patient who did have a diagnosis of lung cancer last year but did not have any follow-up pulmonary and oncology following the patient 3patient urine culture grew Klebsiella that is sensitive to ceftriaxone 4-patient is afebrile patient white count normal, patient to continue with the Rocephin as there was concern for possible pneumonia as well and monitor clinical course closely Dictation was produced using [employer] dictation software. please excuse any grammatical, word or spelling errors. Time with Patient: Less than 30
--- NOTE | 2024-01-09 12:27 | P.PN ---
Subjective Progress Note Date: 01/09/24 Principal diagnosis: Reason for follow-up is urinary tract infection Patient is a 68-year-old male with a past medical history significant for diabetes mellitus hypertension CVA TIA COPD current everyday smoker presenting to the hospital for evaluation of increased weakness and difficulty breathing, patient did have elevated white count did have a positive UA concer shahana for possible drug-resistant UTI prompting this consultation. Patient also have abnormal CT of the chest with masslike consolidation apparently has been diagnosed with the lung cancer last year as per discussion with the pulmonary. On today's evaluation that is 01/09/2024,the patient denies any fever or any chills, patient is breathing comfortably on 3 L nasal oxygen, the patient denies chest pain shortness of breath and no worsening cough, patient denies abdominal pain, no nausea vomiting or diarrhea. Patient white count is 10.22, creatinine 0.8 Objective - Vital Signs Vital signs: Vital Signs Temp 98.0 F 01/09/24 07:53 Pulse 62 01/09/24 09:25 Resp 17 01/09/24 09:20 BP 108/43 01/09/24 12:20 Pulse Ox 97 01/09/24 09:15 FiO2 Intake & Output 01/08/24 01/09/24 01/09/24 18:59 06:59 18:59 Output Total 2600 2800 1100 Balance -2600 -2800 -1100 Weight 97.5 kg Output: Urine 2600 2800 1100 Other: Voiding Method External Catheter External Catheter External Catheter # Bowel Movements 0 1 - Exam GENERAL DESCRIPTION: An elderly male lying in bed in no distress RESPIRATORY SYSTEM: Unlabored breathing , coarse breath sounds bilaterally HEART: S1 S2 regular rate and rhythm , ABDOMEN: Soft , no tenderness EXTREMITIES: Bilateral lower extremity with some swelling and superficial ulceration - Labs CBC & Chem 7: 01/09/24 06:22 01/09/24 06:22 Labs: Abnormal Lab Results - Last 24 Hours (Table) 01/08/24 01/08/24 01/09/24 Range/Units 16:55 21:25 06:02 WBC (4.50-10.00) X 10*3/uL Hgb (13.0-17.0) g/dL Hct (39.6-50.0) % MCV (80.0-97.0) FL MCH (27.0-32.0) pg MCHC (32.0-37.0) g/dL RDW (11.5-14.5) % Neutrophils # (1.80-7.70) X 10*3/uL Monocytes # (0.20-1.00) X 10*3/uL Eosinophils # (0.04-0.35) X 10*3/uL Chloride (96-109) mmol/L Carbon Dioxide (21.6-31.8) mmol/L BUN (9.0-27.0) mg/dL BUN/Creatinine Ratio (12.00-20.00) Ratio Glucose (70-110) mg/dL POC Glucose (mg/dL) 340 H 414 H 212 H (70-110) mg/dL Total Bilirubin (0.3-1.2) mg/dL Total Protein (6.2-8.2) g/dL Albumin (3.8-4.9) g/dL Albumin/Globulin Ratio (1.60-3.17) Ratio 01/09/24 01/09/24 01/09/24 Range/Units 06:22 06:22 11:34 WBC 10.22 H (4.50-10.00) X 10*3/uL Hgb 10.6 L (13.0-17.0) g/dL Hct 37.8 L (39.6-50.0) % MCV 77.5 L (80.0-97.0) FL MCH 21.7 L (27.0-32.0) pg MCHC 28.0 L (32.0-37.0) g/dL RDW 24.6 H (11.5-14.5) % Neutrophils # 7.79 H (1.80-7.70) X 10*3/uL Monocytes # 1.08 H (0.20-1.00) X 10*3/uL Eosinophils # 0.03 L (0.04-0.35) X 10*3/uL Chloride 91 L (96-109) mmol/L Carbon Dioxide 39.0 H (21.6-31.8) mmol/L BUN 38.6 H (9.0-27.0) mg/dL BUN/Creatinine Ratio 48.25 H (12.00-20.00) Ratio Glucose 194 H (70-110) mg/dL POC Glucose (mg/dL) 325 H (70-110) mg/dL Total Bilirubin 0.2 L (0.3-1.2) mg/dL Total Protein 5.3 L (6.2-8.2) g/dL Albumin 3.1 L (3.8-4.9) g/dL Albumin/Globulin Ratio 1.41 L (1.60-3.17) Ratio Assessment and Plan (1) Urinary tract infection Current Visit: Yes Status: Acute Code(s): N39.0 - URINARY TRACT INFECTION, SITE NOT SPECIFIED SNOMED Code(s): 01747910 Plan: 1patient presented to hospital with generalized weakness which is likely multifactorial patient did have some urinary symptoms positive UA concerning for symptomatic UTI with a last urine culture positive for Klebsiella that was intermediate to Unasyn 2-patient also have abnormal CT of the chest concerning for masslike consolidation and lymphadenopathy concerning for possible malignancy, in this patient who did have a diagnosis of lung cancer last year but did not have any follow-up pulmonary and oncology following the patient 3patient urine culture grew Klebsiella that is sensitive to ceftriaxone 4-patient is afebrile white count slightly up and will monitor closely patient is covered with Rocephin adjust antibiotic further on the basis of clinical condition Dictation was produced using [employer] dictation software. please excuse any grammatical, word or spelling errors. Time with Patient: Less than 30
--- NOTE | 2024-01-09 13:04 | PN ---
PROGRESS NOTE A 68-year-old white male, who is trying to find a place to go when he leaves here. His white count is 10.22, hemoglobin is 10.6, BUN is 38, creatinine 0.8. Sugars 300s to 400s. OBJECTIVE: CARDIOVASCULAR: S1, S2. LUNGS: Transmitted upper sounds. HEMATOLOGY: Negative Homans. PSYCH: Fair mood and affect. Urine has Klebsiella. He is on antibiotics. Possibly send him home on oral antibiotics. Per Dr. Matute's recommendations, associated with neck surgery soon as well as possibly chemotherapy for his cancer. Waiting for family to take him home. If family was unable to care for him apparently, he is going to get transferred to possibly [place], where his friend will pick him up from the hospital to move back to [place]. PROGNOSIS: Guarded. MMODL / IJN: [id number] /
[2024-01-09 16:35] LABS: Glucose,Whole Blood 300 mg/dL (70-110)
[2024-01-09 20:32] LABS: Glucose,Whole Blood 340 mg/dL (70-110)
[2024-01-10 06:34] LABS: Glucose,Whole Blood 220 mg/dL (70-110)
--- NOTE | 2024-01-10 09:13 | P.PN ---
Subjective Progress Note Date: 01/09/24 Principal diagnosis: right middle lobe masslike consolidation with air bronchogram differential diagnosis pneumonia versus postobstructive pneumonia right parahilar mass 5 x 3.4 cm in size likely neoplasm, however aspart patient diagnosed as a cancer and [facility] about a year ago, he had a bronchoscopy and biopsy, recommended for radiation and chemotherapy but patient did not follow throughwill obtain path report computed tomography scan reports and consult oncology Acute on chronic hypoxic respiratory failure due to baseline COPD congestive heart failure with acute exacerbation congestive heart failure with acute exacerbation, on diuresis Hypotension related to above as well as diuresis, will initiate patient on low- dose midodrine UTI secondary to Klebsiella most likely, on IV Rocephin follow-up on culture and sensitivity reports type 2 diabetes mellitus on short and long-acting insulin 01/09/2024, patient seen eval examined during rounds labs reviewed medications reviewed care plan discussed, respiratory status overall stable, patient has been found to have diverticulosis on colonoscopy no active bleeding site identified, patient has some pain in the C-spine and back which is under control with pain medications, patient remains on broad-spectrum antibiotics for postobstructive pneumonia, awaiting further recommendation from oncology. Remains afebrile, oxygen saturation is 94% on 3 L oxygen, hemodynamic status stable last set of blood pressure 95/65. Patient remains on bronchodilator and broad-spectrum IV antibiotics patient is being monitor observe off of steroids 01/08/2024, patient seen eval examined during rounds labs reviewed medications reviewed, patient remains on antigen is a cannula, oxygen saturation mid 90s,96% on 3 L, blood pressure 120/65, afebrile with temperature 90.7, chemistry today reviewed sodium is 1:30 position for BUN/creatinine is a 35/0.9 slightly up, blood glucose 97, white cell count 8.2 hemoglobin and hematocrit is 10.6/37urine culture came back positive for Klebsiellapatient is on the Rocephin, and ID service following, also has been IV steroids and bronchodilator disease following for mass is status post colonoscopy tolerated well no diverticulosis seen otherwise no significant pathology seen January 07, 2024, patient seen and examined during rounds labs reviewed medications reviewed care plan discussed, patient is back on 3 L nasal cannula denies any chest pain, patient is currently n.p.o. for endoscopy oxygen saturation 91% on 3 L nasal cannula, chest x-ray interstitial edema right lower lobe pneumonia versus atelectasi. Proceed with endoscopy as planned 01/05/2024, patient seen eval examined the rounds labs reviewed medications reviewed care plan discussed, patient is awake and alert on 3 L oxygen saturation mid 90s, remains on broad-spectrum antibiotics, patient has transient desaturation post endoscopy however subsequently improved and back to baseline.saturation is 95% hemodynamic status stable patient remains afebrile,S x-ray performed today reviewed persistent right basilar infiltrate are present 01/04/2024, patient seen and evaluated examined during rounds labs reviewed medications reviewed care plan discussed, patient remains afebrile with stable hemodynamics, oxygen saturation 92% on 3 L nasal cannula, ongoing cough congestion shortness of breath present which however stableon bronchodilator inhaled corticosteroids and broad-spectrum antibiotics patient remains on IV Solu-Medrol every 8 hourly 40 mg patient is being given midodrine as well, patient has been evaluated by medical oncology awaiting records. Patient underwent endoscopy upper however postoperatively developed desaturations colonoscopy was canceled 68-year-old male with extensive history of smoking and nicotine use chronic hypoxic respiratory failure uses 2-1/2 L oxygen at home, admitted into the hospital with generalized weakness with history of intermittent fall patient has extensive swelling of the lower extremity with chronic skin changes and early cellulitis. Patient had a chest x-ray which shows bilateral small pleural effusion more so on the right side compared left side and CHF-like finding, however computed tomography scan of the chest revealed significant finding of right hilar mass/lymphadenopathy about 5 x 3 cm in size. Patient expresses that he has been evaluated at [facility] had a biopsy done about a year ago he was recommended for chemo and radiation therapy but patient couldn't find transportation and did not follow through.he has been on direct oral anticoagulant with the last was yesterday. Due to generalized weakness patient was evaluated in primary care service also noted to be anemic advised to be admitted to hospital patient fact for scheduled for C-spine surgery which has been postponed. 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 Currently patient is on bronchodilators, IV Rocephin,labs are significant for white cells are 10.3, hemoglobin and hematocrit 11/30 MCV 76, when necessary is 31 creatinine 1.2 glucose 129urine culture positive for gram-negative rods patient has a history of Klebsiella oxytocin in the past Objective - Vital Signs Vital signs: Vital Signs Temp 98.0 F 01/09/24 07:53 Pulse 62 01/09/24 09:25 Resp 17 01/09/24 07:53 BP 110/65 01/09/24 07:53 Pulse Ox 97 01/09/24 09:15 FiO2 Intake & Output 01/08/24 01/09/24 01/09/24 18:59 06:59 18:59 Output Total 2600 2800 Balance -2600 -2800 Weight 97.5 kg Output: Urine 2600 2800 Other: Voiding Method External Catheter External Catheter # Bowel Movements 0 1 - Exam - Constitutional General appearance: average body habitus, cooperative, disheveled - EENT Eyes: EOMI, PERRLA ENT: normal oropharynx Ears: bilateral: normal - Neck Neck: normal ROM Carotids: bilateral: upstroke normal Thyroid: bilateral: normal size - Respiratory Respiratory: right: diminished, dullness, bilateral: rales - Cardiovascular Rhythm: regular Heart sounds: normal: S1, S2 - Gastrointestinal General gastrointestinal: normal bowel sounds, soft - Integumentary bilateral +3 edema of lower extremity along with the chronic skin changes earlier erythema suggestive of developing cellulitis - Neurologic Neurologic: CNII-XII intact - Musculoskeletal Musculoskeletal: generalized weakness, strength equal bilaterally - Psychiatric Psychiatric: A&O x's 3, appropriate affect, intact judgment & insight - Labs CBC & Chem 7: 01/09/24 06:22 01/09/24 06:22 Labs: Abnormal Lab Results - Last 24 Hours (Table) 01/08/24 01/08/24 01/08/24 Range/Units 07:24 07:24 12:05 WBC (4.50-10.00) X 10*3/uL Hgb 10.6 L (13.0-17.0) g/dL Hct 37.4 L (39.6-50.0) % MCV 77.8 L (80.0-97.0) FL MCH 22.0 L (27.0-32.0) pg MCHC 28.3 L (32.0-37.0) g/dL RDW 24.1 H (11.5-14.5) % Neutrophils # (1.80-7.70) X 10*3/uL Lymphocytes # 0.44 L (0.90-5.00) X 10*3/uL Monocytes # (0.20-1.00) X 10*3/uL Eosinophils # 0 L (0.04-0.35) X 10*3/uL Sodium 133 L (135-145) mmol/L Chloride 87 L (96-109) mmol/L Carbon Dioxide 39.4 H (21.6-31.8) mmol/L BUN 35.7 H (9.0-27.0) mg/dL BUN/Creatinine Ratio 39.67 H (12.00-20.00) Ratio Glucose 397 H (70-110) mg/dL POC Glucose (mg/dL) 495 H (70-110) mg/dL Total Bilirubin <0.2 L (0.3-1.2) mg/dL Total Protein 5.2 L (6.2-8.2) g/dL Albumin 2.9 L (3.8-4.9) g/dL Albumin/Globulin Ratio 1.26 L (1.60-3.17) Ratio 01/08/24 01/08/24 01/09/24 Range/Units 16:55 21:25 06:02 WBC (4.50-10.00) X 10*3/uL Hgb (13.0-17.0) g/dL Hct (39.6-50.0) % MCV (80.0-97.0) FL MCH (27.0-32.0) pg MCHC (32.0-37.0) g/dL RDW (11.5-14.5) % Neutrophils # (1.80-7.70) X 10*3/uL Lymphocytes # (0.90-5.00) X 10*3/uL Monocytes # (0.20-1.00) X 10*3/uL Eosinophils # (0.04-0.35) X 10*3/uL Sodium (135-145) mmol/L Chloride (96-109) mmol/L Carbon Dioxide (21.6-31.8) mmol/L BUN (9.0-27.0) mg/dL BUN/Creatinine Ratio (12.00-20.00) Ratio Glucose (70-110) mg/dL POC Glucose (mg/dL) 340 H 414 H 212 H (70-110) mg/dL Total Bilirubin (0.3-1.2) mg/dL Total Protein (6.2-8.2) g/dL Albumin (3.8-4.9) g/dL Albumin/Globulin Ratio (1.60-3.17) Ratio 01/09/24 Range/Units 06:22 WBC 10.22 H (4.50-10.00) X 10*3/uL Hgb 10.6 L (13.0-17.0) g/dL Hct 37.8 L (39.6-50.0) % MCV 77.5 L (80.0-97.0) FL MCH 21.7 L (27.0-32.0) pg MCHC 28.0 L (32.0-37.0) g/dL RDW 24.6 H (11.5-14.5) % Neutrophils # 7.79 H (1.80-7.70) X 10*3/uL Lymphocytes # (0.90-5.00) X 10*3/uL Monocytes # 1.08 H (0.20-1.00) X 10*3/uL Eosinophils # 0.03 L (0.04-0.35) X 10*3/uL Sodium (135-145) mmol/L Chloride (96-109) mmol/L Carbon Dioxide (21.6-31.8) mmol/L BUN (9.0-27.0) mg/dL BUN/Creatinine Ratio (12.00-20.00) Ratio Glucose (70-110) mg/dL POC Glucose (mg/dL) (70-110) mg/dL Total Bilirubin (0.3-1.2) mg/dL Total Protein (6.2-8.2) g/dL Albumin (3.8-4.9) g/dL Albumin/Globulin Ratio (1.60-3.17) Ratio Assessment and Plan Assessment: acute on chronic hypoxic history failure post endoscopy, upper and lower tolerated well nowsats however has improved patient on 3 L nasal cannula sats are low but stable and back to baseline right middle lobe masslike consolidation with air bronchogram differential diagnosis pneumonia versus postobstructive pneumonia, continue antibiotics oncology following awaiting records from [facility] right parahilar mass 5 x 3.4 cm in size likely neoplasm, however as per patient diagnosed as a cancer and [facility] about a year ago, he had a bronchoscopy and biopsy, recommended for radiation and chemotherapy but patient did not follow through,will obtain path report computed tomography scan reports and consult oncology, notes noted and appreciated patient requested care to be performed [place] here in [place] 80 Acute on chronic hypoxic respiratory failure due to baseline COPD congestive heart failure with acute exacerbation acute COPD exacerbation, patient is being monitored off of steroids on antibi otics as as well as bronchodilators congestive heart failure with acute exacerbation, on diuresis Hypotension related to above as well as diuresis, will initiate patient on low- dose midodrine UTI secondary to Klebsiella most likely, on IV Rocephin follow-up on culture and sensitivity reports type 2 diabetes mellitus on short and long-acting insulin Plan: as above Time with Patient: Greater than 30
--- NOTE | 2024-01-10 09:16 | P.PN ---
Subjective Progress Note Date: 01/10/24 Principal diagnosis: right middle lobe masslike consolidation with air bronchogram differential diagnosis pneumonia versus postobstructive pneumonia right parahilar mass 5 x 3.4 cm in size likely neoplasm, however aspart patient diagnosed as a cancer and [facility] about a year ago, he had a bronchoscopy and biopsy, recommended for radiation and chemotherapy but patient did not follow throughwill obtain path report computed tomography scan reports and consult oncology Acute on chronic hypoxic respiratory failure due to baseline COPD congestive heart failure with acute exacerbation congestive heart failure with acute exacerbation, on diuresis Hypotension related to above as well as diuresis, will initiate patient on low- dose midodrine UTI secondary to Klebsiella most likely, on IV Rocephin follow-up on culture and sensitivity reports type 2 diabetes mellitus on short and long-acting insulin 01/10/2024, patient seen eval examined overall respiratory status is still marginal get short of breath on minimal activity and exertion, on 3 L oxygen,saturation is a 88% transientlyadvised to take deep breathing exercises incentive spirometry hemodynamic status stable blood pressure 124/63 respiratory rate is 20 heart rate 64 temperature 98, labs are not done today blood glucose is 220 01/09/2024, patient seen eval examined during rounds labs reviewed medications reviewed care plan discussed, respiratory status overall stable, patient has been found to have diverticulosis on colonoscopy no active bleeding site identified, patient has some pain in the C-spine and back which is under control with pain medications, patient remains on broad-spectrum antibiotics for postobstructive pneumonia, awaiting further recommendation from oncology. Remains afebrile, oxygen saturation is 94% on 3 L oxygen, hemodynamic status stable last set of blood pressure 95/65. Patient remains on bronchodilator and broad-spectrum IV antibiotics patient is being monitor observe off of steroids 01/08/2024, patient seen eval examined during rounds labs reviewed medications r eviewed, patient remains on antigen is a cannula, oxygen saturation mid 90s,96% on 3 L, blood pressure 120/65, afebrile with temperature 90.7, chemistry today reviewed sodium is 1:30 position for BUN/creatinine is a 35/0.9 slightly up, blood glucose 97, white cell count 8.2 hemoglobin and hematocrit is 10.6/37urine culture came back positive for Klebsiellapatient is on the Rocephin, and ID service following, also has been IV steroids and bronchodilator disease following for mass is status post colonoscopy tolerated well no diverticulosis seen otherwise no significant pathology seen January 07, 2024, patient seen and examined during rounds labs reviewed medications reviewed care plan discussed, patient is back on 3 L nasal cannula denies any chest pain, patient is currently n.p.o. for endoscopy oxygen saturation 91% on 3 L nasal cannula, chest x-ray interstitial edema right lower lobe pneumonia versus atelectasi. Proceed with endoscopy as planned 01/05/2024, patient seen eval examined the rounds labs reviewed medications reviewed care plan discussed, patient is awake and alert on 3 L oxygen saturation mid 90s, remains on broad-spectrum antibiotics, patient has transient desaturation post endoscopy however subsequently improved and back to baseline.saturation is 95% hemodynamic status stable patient remains afebrile,S x-ray performed today reviewed persistent right basilar infiltrate are present 01/04/2024, patient seen and evaluated examined during rounds labs reviewed medications reviewed care plan discussed, patient remains afebrile with stable hemodynamics, oxygen saturation 92% on 3 L nasal cannula, ongoing cough congestion shortness of breath present which however stableon bronchodilator inhaled corticosteroids and broad-spectrum antibiotics patient remains on IV Solu-Medrol every 8 hourly 40 mg patient is being given midodrine as well, patient has been evaluated by medical oncology awaiting records. Patient underwent endoscopy upper however postoperatively developed desaturations colonoscopy was canceled 68-year-old male with extensive history of smoking and nicotine use chronic hypoxic respiratory failure uses 2-1/2 L oxygen at home, admitted into the hospital with generalized weakness with history of intermittent fall patient has extensive swelling of the lower extremity with chronic skin changes and early cellulitis. Patient had a chest x-ray which shows bilateral small pleural effusion more so on the right side compared left side and CHF-like finding, however computed tomography scan of the chest revealed significant finding of right hilar mass/lymphadenopathy about 5 x 3 cm in size. Patient expresses that he has been evaluated at [facility] had a biopsy done about a year ago he was recommended for chemo and radiation therapy but patient couldn't find transportation and did not follow through.he has been on direct oral anticoagulant with the last was yesterday. Due to generalized weakness patient was evaluated in primary care service also noted to be anemic advised to be admitted to hospital patient fact for scheduled for C-spine surgery which has been postponed. 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 Currently patient is on bronchodilators, IV Rocephin,labs are significant for white cells are 10.3, hemoglobin and hematocrit 08/06 MCV 76, when necessary is 31 creatinine 1.2 glucose 129urine culture positive for gram-negative rods patient has a history of Klebsiella oxytocin in the past Objective - Vital Signs Vital signs: Vital Signs Temp 98.1 F 01/10/24 07:59 Pulse 64 01/10/24 07:59 Resp 19 01/10/24 07:59 BP 124/63 01/10/24 07:59 Pulse Ox 88 L 01/10/24 07:59 FiO2 Intake & Output 01/09/24 01/10/24 01/10/24 18:59 06:59 18:59 Output Total 1600 650 Balance -1600 -650 Weight 91 kg Output: Urine 1600 650 Other: Voiding Method External Catheter External Catheter - Exam - Constitutional General appearance: average body habitus, cooperative, disheveled - EENT Eyes: EOMI, PERRLA ENT: normal oropharynx Ears: bilateral: normal - Neck Neck: normal ROM Carotids: bilateral: upstroke normal Thyroid: bilateral: normal size - Respiratory Respiratory: right: diminished, dullness, bilateral: rales - Cardiovascular Rhythm: regular Heart sounds: normal: S1, S2 - Gastrointestinal General gastrointestinal: normal bowel sounds, soft - Integumentary bilateral +3 edema of lower extremity along with the chronic skin changes earlier erythema suggestive of developing cellulitis - Neurologic Neurologic: CNII-XII intact - Musculoskeletal Musculoskeletal: generalized weakness, strength equal bilaterally - Psychiatric Psychiatric: A&O x's 3, appropriate affect, intact judgment & insight - Labs CBC & Chem 7: 01/09/24 06:22 01/09/24 06:22 Labs: Abnormal Lab Results - Last 24 Hours (Table) 01/09/24 01/09/24 01/09/24 Range/Units 06:22 06:22 11:34 WBC 10.22 H (4.50-10.00) X 10*3/uL Hgb 10.6 L (13.0-17.0) g/dL Hct 37.8 L (39.6-50.0) % MCV 77.5 L (80.0-97.0) FL MCH 21.7 L (27.0-32.0) pg MCHC 28.0 L (32.0-37.0) g/dL RDW 24.6 H (11.5-14.5) % Neutrophils # 7.79 H (1.80-7.70) X 10*3/uL Monocytes # 1.08 H (0.20-1.00) X 10*3/uL Eosinophils # 0.03 L (0.04-0.35) X 10*3/uL Chloride 91 L (96-109) mmol/L Carbon Dioxide 39.0 H (21.6-31.8) mmol/L BUN 38.6 H (9.0-27.0) mg/dL BUN/Creatinine Ratio 48.25 H (12.00-20.00) Ratio Glucose 194 H (70-110) mg/dL POC Glucose (mg/dL) 325 H (70-110) mg/dL Total Bilirubin 0.2 L (0.3-1.2) mg/dL Total Protein 5.3 L (6.2-8.2) g/dL Albumin 3.1 L (3.8-4.9) g/dL Albumin/Globulin Ratio 1.41 L (1.60-3.17) Ratio 01/09/24 01/09/24 01/10/24 Range/Units 16:34 20:28 06:31 WBC (4.50-10.00) X 10*3/uL Hgb (13.0-17.0) g/dL Hct (39.6-50.0) % MCV (80.0-97.0) FL MCH (27.0-32.0) pg MCHC (32.0-37.0) g/dL RDW (11.5-14.5) % Neutrophils # (1.80-7.70) X 10*3/uL Monocytes # (0.20-1.00) X 10*3/uL Eosinophils # (0.04-0.35) X 10*3/uL Chloride (96-109) mmol/L Carbon Dioxide (21.6-31.8) mmol/L BUN (9.0-27.0) mg/dL BUN/Creatinine Ratio (12.00-20.00) Ratio Glucose (70-110) mg/dL POC Glucose (mg/dL) 300 H 340 H 220 H (70-110) mg/dL Total Bilirubin (0.3-1.2) mg/dL Total Protein (6.2-8.2) g/dL Albumin (3.8-4.9) g/dL Albumin/Globulin Ratio (1.60-3.17) Ratio Assessment and Plan Assessment: acute on chronic hypoxic history failure improved patient on 3 L nasal cannula sats are low but stable and back to baseline, transient desaturation noted earlier this morning we'll obtain a chest x-ray patient being Constipated nasal cannula right middle lobe masslike consolidation with air bronchogram differential diagnosis pneumonia versus postobstructive pneumonia, continue antibiotics oncology following awaiting records from [facility] right parahilar mass 5 x 3.4 cm in size likely neoplasm, however as per patient diagnosed as a cancer and [facility] about a year ago, he had a bronchoscopy and biopsy, recommended for radiation and chemotherapy but patient did not follow through,will obtain path report computed tomography scan reports and consult oncology, notes noted and appreciated patient requested care to be performed over here in [place] [id number] Acute on chronic hypoxic respiratory failure due to baseline COPD congestive heart failure with acute exacerbation acute COPD exacerbation, patient is being monitored off of steroids on antibiotics as as well as bronchodilators congestive heart failure with acute exacerbation, on diuresis Hypotension related to above as well as diuresis, will initiate patient on low- dose midodrine UTI secondary to Klebsiella most likely, on IV Rocephin follow-up on culture and sensitivity reports type 2 diabetes mellitus on short and long-acting insulin Plan: as above Time with Patient: Greater than 30
--- NOTE | 2024-01-10 10:09 | XR ---
EXAMINATION TYPE: XR chest 1V DATE OF EXAM: 01/10/2024 COMPARISON: 01/05/2024 HISTORY: Desaturation TECHNIQUE: Single frontal view of the chest is obtained. FINDINGS: There is no change in the bibasilar opacities likely a combination of small pleural effusi ons and either pneumonic infiltrates or atelectasis. The pulmonary vasculature is normal. There is no pneumothorax. IMPRESSION: Acute cardiopulmonary disease as described above with no significant interval change.
[2024-01-10 11:40] LABS: Glucose,Whole Blood 188 mg/dL (70-110)
[2024-01-10 16:42] LABS: Glucose,Whole Blood 167 mg/dL (70-110)
--- NOTE | 2024-01-10 17:58 | P.PN ---
Subjective Progress Note Date: 01/10/24 No new complaints. Patient is on diet. No reports of nausea or vomiting. Patient is resting comfortably. Abdomen: No peritonitis. Plan: 1. Diet as tolerated. 2. Continue antiacid upon discharge Objective - Vital Signs Vital signs: Vital Signs Temp 98.1 F 01/10/24 13:40 Pulse 62 01/10/24 13:40 Resp 19 01/10/24 13:40 BP 115/73 01/10/24 13:40 Pulse Ox 93 L 01/10/24 13:40 FiO2 Intake & Output 01/09/24 01/10/24 01/10/24 18:59 06:59 18:59 Output Total 1600 650 Balance -1600 -650 Weight 91 kg Output: Urine 1600 650 Other: Voiding Method External Catheter External Catheter External Catheter - Labs CBC & Chem 7: 01/09/24 06:22 01/09/24 06:22 Labs: Abnormal Lab Results - Last 24 Hours (Table) 01/09/24 01/10/24 01/10/24 Range/Units 20:28 06:31 11:38 POC Glucose (mg/dL) 340 H 220 H 188 H (70-110) mg/dL 01/10/24 Range/Units 16:38 POC Glucose (mg/dL) 167 H (70-110) mg/dL
--- NOTE | 2024-01-10 18:35 | P.PN ---
Subjective Progress Note Date: 01/10/24 Principal diagnosis: Reason for follow-up is urinary tract infection Patient is a 68-year-old male with a past medical history significant for diabetes mellitus hypertension CVA TIA COPD current everyday smoker presenting to the hospital for evaluation of increased weakness and difficulty breathing, patient did have elevated white count did have a positive UA concer shahana for possible drug-resistant UTI prompting this consultation. Patient also have abnormal CT of the chest with masslike consolidation apparently has been diagnosed with the lung cancer last year as per discussion with the pulmonary. On today's evaluation that is 01/10/2024,the patient remains to be afebrile, patient is on 3 L nasal cannula supplemental oxygen and denies any shortness of breath no chest pain or any worsening cough.Patient denies having any nausea or vomiting, no abdominal pain and no diarrhea has been reported. No lab draw today Objective - Vital Signs Vital signs: Vital Signs Temp 98.1 F 01/10/24 13:40 Pulse 62 01/10/24 13:40 Resp 19 01/10/24 13:40 BP 115/73 01/10/24 13:40 Pulse Ox 93 L 01/10/24 13:40 FiO2 Intake & Output 01/09/24 01/10/24 01/10/24 18:59 06:59 18:59 Output Total 8141 599 3350 Balance -2743 -355 -1130 Weight 91 kg Output: Urine 5461 864 4781 Other: Voiding Method External Catheter External Catheter External Catheter - Exam GENERAL DESCRIPTION: An elderly male lying in bed in no distress RESPIRATORY SYSTEM: Unlabored breathing , coarse breath sounds bilaterally HEART: S1 S2 regular rate and rhythm , ABDOMEN: Soft , no tenderness EXTREMITIES: Bilateral lower extremity with some swelling and superficial ulceration - Labs CBC & Chem 7: 01/09/24 06:22 01/09/24 06:22 Labs: Abnormal Lab Results - Last 24 Hours (Table) 01/09/24 01/10/24 01/10/24 Range/Units 20:28 06:31 11:38 POC Glucose (mg/dL) 340 H 220 H 188 H (70-110) mg/dL 01/10/24 Range/Units 16:38 POC Glucose (mg/dL) 167 H (70-110) mg/dL Assessment and Plan (1) Urinary tract infection Current Visit: Yes Status: Acute Code(s): N39.0 - URINARY TRACT INFECTION, SITE NOT SPECIFIED SNOMED Code(s): 16913347 Plan: 1patient presented to hospital with generalized weakness which is likely multifactorial patient did have some urinary symptoms positive UA concerning for symptomatic UTI with a last urine culture positive for Klebsiella that was inter mediate to Unasyn 2-patient also have abnormal CT of the chest concerning for masslike consolidation and lymphadenopathy concerning for possible malignancy, in this patient who did have a diagnosis of lung cancer last year but did not have any follow-up pulmonary and oncology following the patient 3patient urine culture grew Klebsiella that is sensitive to ceftriaxone 4-patient is afebrile white count slightly up yesterday however no CBC was done today we will repeat a CBC tomorrow and continue with Rocephin Dictation was produced using [employer] dictation software. please excuse any grammatical, word or spelling errors.
[2024-01-10 20:29] LABS: Glucose,Whole Blood 233 mg/dL (70-110)
--- NOTE | 2024-01-11 03:25 | PN ---
PROGRESS NOTE A -qtad-tye white male, who has been diagnosed with non-small cell lung cancer. He was seen by a cancer doctor 2 years ago roughly down in [place] where he lives. The patient's family would not take him there and he could not get there, he said. He did not think cancer was his problem. He cannot believe that he had cancer and the family had never taken him for followup chemotherapy for the last 2 years. MMODL / IJN: [id number] /
--- NOTE | 2024-01-11 04:07 | PN ---
PROGRESS NOTE SUBJECTIVE: 68-year-old white male seen by multiple specialists here. He came in with severe anemia and heart failure. He has improved. His legs are much better, much decrease in size. His hemoglobin is improved off his blood thinner. He is awaiting a court date tomorrow. He is open to his family, guardianship take him home, so he can get his neck surgery, and so treatment for his cancer. Hopefully that will happen. I will stage on his chest x-ray. Sugars are 100s to 200s up to 300s. CO2 is 39. Hemoglobin is 10.6, pending for today. He does not get out of bed much. He is very weak still, but he can be discharged home tomorrow. He is clinically stable. He is much better. Outpatient treatment for his lung cancer and cervical surgery. Continue on current medications. Appears to be doing very well with Zaroxolyn with his CHF. OBJECTIVE: LUNGS: Fairly clear. CARDIOVASCULAR: S1, S2. PSYCH: Alert and oriented x3. VASCULAR: His lower extremities are less red. His feet are now normal in color. He has onychomycosis of the toenails. PROGNOSIS: Guarded. MMODL / IJN: [id number] /
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
[2024-01-11 06:16] LABS: Glucose,Whole Blood 223 mg/dL (70-110)
[2024-01-11 11:22] LABS: Glucose,Whole Blood 250 mg/dL (70-110)
--- NOTE | 2024-01-11 15:43 | P.PN ---
Subjective Progress Note Date: 01/11/24 CHIEF COMPLAINT: Anemia HISTORY OF PRESENT ILLNESS: Patient is status post EGD revealing antral gastritis. Patient is status post colonoscopy that reported diverticulosis. no new complaints. PHYSICAL EXAM: VITAL SIGNS: Reviewed. GENERAL: no acute distress. ABDOMEN: Soft. Nondistended. Nontender. ASSESSMENT: 1. Anemia. Status post EGD revealing antral gastritis. Colonoscopy with diverticulosis. No active bleeding. 2. Lung Cancer PLAN: -Patient can be discharged from surgical standpoint -Continue Protonix at discharge Physician Nurse Monitoring note has been reviewed by physician. Signing provider agrees with the documented findings, assessment, and plan of care. Objective - Vital Signs Vital signs: Vital Signs Temp 98.8 F 01/11/24 07:29 Pulse 60 01/11/24 12:47 Resp 18 01/11/24 07:29 BP 104/60 01/11/24 12:42 Pulse Ox 98 01/11/24 07:29 FiO2 Intake & Output 01/10/24 01/11/24 01/11/24 18:59 06:59 18:59 Output Total 1130 1110 Balance -1130 -1110 Weight 91 kg Output: Urine 1130 1110 Other: Voiding Method External Catheter External Catheter - Labs CBC & Chem 7: 01/09/24 06:22 01/09/24 06:22 Labs: Abnormal Lab Results - Last 24 Hours (Table) 01/10/24 01/10/24 01/11/24 Range/Units 16:38 20:27 06:15 POC Glucose (mg/dL) 167 H 233 H 223 H (70-110) mg/dL 01/11/24 Range/Units 11:21 POC Glucose (mg/dL) 250 H (70-110) mg/dL
[2024-01-11 16:24] LABS: Glucose,Whole Blood 201 mg/dL (70-110)
--- NOTE | 2024-01-11 18:22 | P.PN ---
Subjective Progress Note Date: 01/11/24 Principal diagnosis: right middle lobe masslike consolidation with air bronchogram differential diagnosis pneumonia versus postobstructive pneumonia right parahilar mass 5 x 3.4 cm in size likely neoplasm, however aspart patient diagnosed as a cancer and [facility] about a year ago, he had a bronchoscopy and biopsy, recommended for radiation and chemotherapy but patient did not follow throughwill obtain path report computed tomography scan reports and consult oncology Acute on chronic hypoxic respiratory failure due to baseline COPD congestive heart failure with acute exacerbation congestive heart failure with acute exacerbation, on diuresis Hypotension related to above as well as diuresis, will initiate patient on low- dose midodrine UTI secondary to Klebsiella most likely, on IV Rocephin follow-up on culture and sensitivity reports type 2 diabetes mellitus on short and long-acting insulin January 11, 2024, patient seen evaluate examined during rounds labs reviewed medications reviewed respiratory status continue to improve, awaiting further advice from the oncology department however patient is complaining of extreme pain in the neck as well as shooting pain down in the spine, patient has seen a spine surgeon Dr. Frank will consult spine surgery awaiting further advice from them, patient however remains on 3 L oxygen saturations mid 90s hemodynamic status stable, patient remains on bronchodilators as well as IV broad-spectrum antibiotics patient is being monitored and observe off of steroids 01/10/2024, patient seen eval examined overall respiratory status is still marginal get short of breath on minimal activity and exertion, on 3 L oxygen,saturation is a 88% transientlyadvised to take deep breathing exercises incentive spirometry hemodynamic status stable blood pressure 124/63 respiratory rate is 20 heart rate 64 temperature 98, labs are not done today blood glucose is 220 01/09/2024, patient seen eval examined during rounds labs reviewed medications reviewed care plan discussed, respiratory status overall stable, patient has been found to have diverticulosis on colonoscopy no active bleeding site identified, patient has some pain in the C-spine and back which is under control with pain medications, patient remains on broad-spectrum antibiotics for postobstructive pneumonia, awaiting further recommendation from oncology. Remains afebrile, oxygen saturation is 94% on 3 L oxygen, hemodynamic status stable last set of blood pressure 95/65. Patient remains on bronchodilator and broad-spectrum IV antibiotics patient is being monitor observe off of steroids 01/08/2024, patient seen eval examined during rounds labs reviewed medications reviewed, patient remains on antigen is a cannula, oxygen saturation mid 90s,96% on 3 L, blood pressure 120/65, afebrile with temperature 90.7, chemistry today reviewed sodium is 1:30 position for BUN/creatinine is a 35/0.9 slightly up, blood glucose 97, white cell count 8.2 hemoglobin and hematocrit is 10.6/37urine culture came back positive for Klebsiellapatient is on the Rocephin, and ID service following, also has been IV steroids and bronchodilator disease fo llowing for mass is status post colonoscopy tolerated well no diverticulosis seen otherwise no significant pathology seen January 07, 2024, patient seen and examined during rounds labs reviewed medications reviewed care plan discussed, patient is back on 3 L nasal cannula denies any chest pain, patient is currently n.p.o. for endoscopy oxygen saturation 91% on 3 L nasal cannula, chest x-ray interstitial edema right lower lobe pneumonia versus atelectasi. Proceed with endoscopy as planned 01/05/2024, patient seen eval examined the rounds labs reviewed medications reviewed care plan discussed, patient is awake and alert on 3 L oxygen saturation mid 90s, remains on broad-spectrum antibiotics, patient has transient desaturation post endoscopy however subsequently improved and back to baseline.saturation is 95% hemodynamic status stable patient remains afebrile,S x-ray performed today reviewed persistent right basilar infiltrate are present 01/04/2024, patient seen and evaluated examined during rounds labs reviewed medications reviewed care plan discussed, patient remains afebrile with stable hemodynamics, oxygen saturation 92% on 3 L nasal cannula, ongoing cough con gestion shortness of breath present which however stableon bronchodilator inhaled corticosteroids and broad-spectrum antibiotics patient remains on IV Solu-Medrol every 8 hourly 40 mg patient is being given midodrine as well, patient has been evaluated by medical oncology awaiting records. Patient underwent endoscopy upper however postoperatively developed desaturations colonoscopy was canceled 68-year-old male with extensive history of smoking and nicotine use chronic hypoxic respiratory failure uses 2-1/2 L oxygen at home, admitted into the hospital with generalized weakness with history of intermittent fall patient has extensive swelling of the lower extremity with chronic skin changes and early cellulitis. Patient had a chest x-ray which shows bilateral small pleural effusion more so on the right side compared left side and CHF-like finding, however computed tomography scan of the chest revealed significant finding of right hilar mass/lymphadenopathy about 5 x 3 cm in size. Patient expresses that he has been evaluated at [facility] had a biopsy done about a year ago he wa s recommended for chemo and radiation therapy but patient couldn't find transportation and did not follow through.he has been on direct oral anticoagulant with the last was yesterday. Due to generalized weakness patient was evaluated in primary care service also noted to be anemic advised to be adm itted to hospital patient fact for scheduled for C-spine surgery which has been postponed. 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 Currently patient is on bronchodilators, IV Rocephin,labs are significant for white cells are 10.3, hemoglobin and hematocrit 11/30 MCV 76, when necessary is 31 creatinine 1.2 glucose 129urine culture positive for gram-negative rods patient has a history of Klebsiella oxytocin in the past Objective - Vital Signs Vital signs: Vital Signs Temp 97.3 F L 01/11/24 14:12 Pulse 67 01/11/24 14:12 Resp 17 01/11/24 14:12 BP 111/62 01/11/24 17:39 Pulse Ox 93 L 01/11/24 14:12 FiO2 Intake & Output 01/10/24 01/11/24 01/11/24 18:59 06:59 18:59 Intake Total 50 Output Total 1130 1110 1200 Balance -1130 -1110 -1150 Weight 91 kg Intake: Intake, IV Titration 50 Amount cefTRIAXone 2 gm In 50 Sodium Chloride 0.9% 50 ml @ 100 mls/hr IVPB Q24H [facility] Rx#:[id number] Output: Urine 1130 1110 1200 Other: Voiding Method External Catheter External Catheter - Exam - Constitutional General appearance: average body habitus, cooperative, disheveled - EENT Eyes: EOMI, PERRLA ENT: normal oropharynx Ears: bilateral: normal - Neck Neck: normal ROM Carotids: bilateral: upstroke normal Thyroid: bilateral: normal size - Respiratory Respiratory: right: diminished, dullness, bilateral: rales - Cardiovascular Rhythm: regular Heart sounds: normal: S1, S2 - Gastrointestinal General gastrointestinal: normal bowel sounds, soft - Integumentary bilateral +3 edema of lower extremity along with the chronic skin changes earlier erythema suggestive of developing cellulitis - Neurologic Neurologic: CNII-XII intact - Musculoskeletal Musculoskeletal: generalized weakness, strength equal bilaterally - Psychiatric Psychiatric: A&O x's 3, appropriate affect, intact judgment & insight - Labs CBC & Chem 7: 01/09/24 06:22 01/09/24 06:22 Labs: Abnormal Lab Results - Last 24 Hours (Table) 01/10/24 01/11/24 01/11/24 Range/Units 20:27 06:15 11:21 POC Glucose (mg/dL) 233 H 223 H 250 H (70-110) mg/dL 01/11/24 Range/Units 16:23 POC Glucose (mg/dL) 201 H (70-110) mg/dL Assessment and Plan Assessment: acute on chronic hypoxic history failure improved patient on 3 L nasal cannula sats are low but stable and back to baseline, transient desaturation noted earlier this morning we'll obtain a chest x-ray patient being Constipated nasal cannula right middle lobe masslike consolidation with air bronchogram differential diagnosis pneumonia versus postobstructive pneumonia, continue antibiotics oncology following awaiting records from [facility] right parahilar mass 5 x 3.4 cm in size likely neoplasm, however as per patient diagnosed as a cancer and [facility] about a year ago, he had a bronchoscopy and biopsy, recommended for radiation and chemotherapy but patient did not follow through,will obtain path report computed tomography scan reports and consult oncology, notes noted and appreciated patient requested care to be per formed over here in [place] 78 Severe degree of neck pain and back pain with shooting pain sensation, spine surgery has been consulted Acute on chronic hypoxic respiratory failure due to baseline COPD congestive heart failure with acute exacerbation acute COPD exacerbation, patient is being monitored off of steroids on antibiotics as as well as bronchodilators congestive heart failure with acute exacerbation, on diuresis Hypotension related to above as well as diuresis, will initiate patient on low- dose midodrine UTI secondary to Klebsiella most likely, on IV Rocephin follow-up on culture and sensitivity reports type 2 diabetes mellitus on short and long-acting insulin Issues related to replacement, legal guardian is being appointed by the court s ystem Plan: as above Time with Patient: Greater than 30
[2024-01-11 20:22] LABS: Glucose,Whole Blood 222 mg/dL (70-110)
--- NOTE | 2024-01-11 21:36 | P.PN ---
Subjective Progress Note Date: 01/11/24 Principal diagnosis: Reason for follow-up is urinary tract infection Patient is a 68-year-old male with a past medical history significant for diabetes mellitus hypertension CVA TIA COPD current everyday smoker presenting to the hospital for evaluation of increased weakness and difficulty breathing, patient did have elevated white count did have a positive UA concer shahana for possible drug-resistant UTI prompting this consultation. Patient also have abnormal CT of the chest with masslike consolidation apparently has been diagnosed with the lung cancer last year as per discussion with the pulmonary. On today's evaluation that is01/11/2024, the patient continues to be afebrile, the patient is on 3 L nasal cannula oxygen and breathing comfortably, the Pt denies having any chest pain or cough, the patient denies having any abdominal pain no vomiting or any diarrhea has been reported by the nursing staff. No new labs obtained today Objective - Vital Signs Vital signs: Vital Signs Temp 97.3 F L 01/11/24 14:12 Pulse 67 01/11/24 14:12 Resp 17 01/11/24 14:12 BP 111/62 01/11/24 17:39 Pulse Ox 93 L 01/11/24 14:12 FiO2 Intake & Output 01/10/24 01/11/24 01/11/24 18:59 06:59 18:59 Intake Total 50 Output Total 1130 1110 1200 Balance -1130 -1110 -1150 Weight 91 kg Intake: Intake, IV Titration 50 Amount cefTRIAXone 2 gm In 50 Sodium Chloride 0.9% 50 ml @ 100 mls/hr IVPB Q24H [facility] Rx#:[id number] Output: Urine 1130 1110 1200 Other: Voiding Method External Catheter External Catheter - Exam GENERAL DESCRIPTION: An elderly male lying in bed in no distress RESPIRATORY SYSTEM: Unlabored breathing , coarse breath sounds bilaterally HEART: S1 S2 regular rate and rhythm , ABDOMEN: Soft , no tenderness EXTREMITIES: Bilateral lower extremity with some swelling and superficial ulceration - Labs CBC & Chem 7: 01/09/24 06:22 01/09/24 06:22 Labs: Abnormal Lab Results - Last 24 Hours (Table) 01/10/24 01/11/24 01/11/24 Range/Units 20:27 06:15 11:21 POC Glucose (mg/dL) 233 H 223 H 250 H (70-110) mg/dL 01/11/24 Range/Units 16:23 POC Glucose (mg/dL) 201 H (70-110) mg/dL Assessment and Plan (1) Urinary tract infection Current Visit: Yes Status: Acute Code(s): N39.0 - URINARY TRACT INFECTION, SITE NOT SPECIFIED SNOMED Code(s): 07352120 Plan: 1patient presented to hospital with generalized weakness which is likely multifactorial patient did have some urinary symptoms positive UA concerning for symptomatic UTI with a last urine culture positive for Klebsiella that was int ermediate to Unasyn 2-patient also have abnormal CT of the chest concerning for masslike consolidati on and lymphadenopathy concerning for possible malignancy, in this patient who did have a diagnosis of lung cancer last year but did not have any follow-up pulmonary and oncology following the patient 3patient urine culture grew Klebsiella that is sensitive to ceftriaxone 4-patient is afebrile no CBC done today patient is covered with Rocephin and monitor clinical course, closely Dictation was produced using [employer] dictation software. please excuse any grammatical, word or spelling errors.
[2024-01-12 05:55] LABS: Glucose,Whole Blood 165 mg/dL (70-110)
--- NOTE | 2024-01-12 07:29 | PN ---
PROGRESS NOTE SUBJECTIVE: A 68-year-old white male, remains in the hospital. He has CHF, acute on chronic diastolic. He has COPD. He has probable lung cancer. He has cervical disk disease. He had a UTI. He is improving. His leg swelling is down. He is feeling better. He is breathing better. He got appointed a guardian today. Waiting for them to see where he wants to go. He needs outpatient chemotherapy and cervical neck surgery. He came in for anemia. His hemoglobin is much better since admission. OBJECTIVE: VITAL SIGNS: Temperature 99.5, blood pressure 155/52, O2 of 99% on 3 L. CARDIOVASCULAR: S1, S2. LUNGS: Transmitted upper sounds. GI: Soft. HEMATOLOGY: Negative Homans. Klebsiella urinary tract infection. ASSESSMENT: Oral antibiotics. Prognosis is guarded. Continue current treatment. Await for outpatient chemotherapy orders for when they want to see him. Prognosis guarded. MMODL / IJN: [id number] /
[2024-01-12 08:44] LABS: Basophils # (A) 0.02 X 10*3/uL (0.00-0.10); Basophils % (A) 0.2 %; Eosinophils # (A) 0.04 X 10*3/uL (0.04-0.35); Eosinophils % (A) 0.4 %; HCT 38.4 % (39.6-50.0); HGB 10.7 g/dL (13.0-17.0); Lymphocytes # (A) 1.16 X 10*3/uL (0.90-5.00); Lymphocytes % (A) 10.3 %; MCHC 27.9 g/dL (32.0-37.0); Monocytes # (A) 1.45 X 10*3/uL (0.20-1.00); Monocytes % (A) 12.8 %; NRBC Per 100 WBC 0 X 10*3/uL (0.00-0.01); Neutrophils # (A) 8.56 X 10*3/uL (1.80-7.70); Neutrophils % (A) 75.8 %; Platelet Count 269 X 10*3/uL (140-440); RBC 4.86 X 10*6/uL (4.40-5.60); RDW 25.9 % (11.5-14.5); WBC 11.29 X 10*3/uL (4.50-10.00)
[2024-01-12 11:28] LABS: Glucose,Whole Blood 174 mg/dL (70-110)
[2024-01-12 11:47] LABS: ALT 27 U/L (10-49); AST 17 U/L (14-35); Albumin 3.1 g/dL (3.8-4.9); Albumin/Globulin Ratio 1.29 Ratio (1.60-3.17); Alkaline Phosphatase 93 U/L (41-126); BUN/Creat Ratio 49.25 Ratio (12.00-20.00); Blood Urea Nitrogen 39.4 mg/dL (9.0-27.0); Calcium 8.7 mg/dL (8.7-10.3); Carbon Dioxide 36.3 mmol/L (21.6-31.8); Chloride 89 mmol/L (96-109); Globulin 2.4 g/dL (1.6-3.3); Glucose 142 mg/dL (70-110); Potassium 3.9 mmol/L (3.5-5.5); Sodium 140 mmol/L (135-145); Total Bilirubin 0.3 mg/dL (0.3-1.2); Total Protein 5.5 g/dL (6.2-8.2)
--- NOTE | 2024-01-12 12:51 | P.PN ---
Subjective Progress Note Date: 01/12/24 CHIEF COMPLAINT: Anemia HISTORY OF PRESENT ILLNESS: Patient is status post EGD revealing antral gastritis. Patient is status post colonoscopy that reported diverticulosis. no new complaints. Social work is working on on getting patient an assigned public guardian. PHYSICAL EXAM: VITAL SIGNS: Reviewed. GENERAL: no acute distress. ABDOMEN: Soft. Nondistended. Nontender. ASSESSMENT: 1. Anemia. Status post EGD revealing antral gastritis. Colonoscopy with diverticulosis. No active bleeding. 2. Lung Cancer PLAN: -Patient can be discharged from surgical standpoint -Continue Protonix at discharge Physician Loss Control Consultant note has been reviewed by physician. Signing provider agrees with the documented findings, assessment, and plan of care. Objective - Vital Signs Vital signs: Vital Signs Temp 97.6 F 01/12/24 08:00 Pulse 62 01/12/24 10:13 Resp 18 01/12/24 08:00 BP 95/52 01/12/24 12:01 Pulse Ox 92 L 01/12/24 08:00 FiO2 Intake & Output 01/11/24 01/12/24 01/12/24 18:59 06:59 18:59 Intake Total 50 240 Output Total 1200 1150 Balance -1150 -1150 240 Weight 67.8 kg Intake: Intake, IV Titration 50 Amount cefTRIAXone 2 gm In 50 Sodium Chloride 0.9% 50 ml @ 100 mls/hr IVPB Q24H [facility] Rx#:[id number] Oral 240 Output: Urine 1200 1150 Other: Voiding Method External Catheter - Labs CBC & Chem 7: 01/12/24 04:59 01/12/24 04:59 Labs: Abnormal Lab Results - Last 24 Hours (Table) 01/11/24 01/11/24 01/12/24 Range/Units 16:23 20:21 04:59 WBC 11.29 H (4.50-10.00) X 10*3/uL Hgb 10.7 L (13.0-17.0) g/dL Hct 38.4 L (39.6-50.0) % MCV 79.0 L (80.0-97.0) FL MCH 22.0 L (27.0-32.0) pg MCHC 27.9 L (32.0-37.0) g/dL RDW 25.9 H (11.5-14.5) % Immature Gran # 0.06 H (0.00-0.04) X 10*3/uL Neutrophils # 8.56 H (1.80-7.70) X 10*3/uL Monocytes # 1.45 H (0.20-1.00) X 10*3/uL Chloride (96-109) mmol/L Carbon Dioxide (21.6-31.8) mmol/L Anion Gap (4.00-12.00) mmol/L BUN (9.0-27.0) mg/dL BUN/Creatinine Ratio (12.00-20.00) Ratio Glucose (70-110) mg/dL POC Glucose (mg/dL) 201 H 222 H (70-110) mg/dL Total Protein (6.2-8.2) g/dL Albumin (3.8-4.9) g/dL Albumin/Globulin Ratio (1.60-3.17) Ratio 01/12/24 01/12/24 01/12/24 Range/Units 04:59 05:52 11:27 WBC (4.50-10.00) X 10*3/uL Hgb (13.0-17.0) g/dL Hct (39.6-50.0) % MCV (80.0-97.0) FL MCH (27.0-32.0) pg MCHC (32.0-37.0) g/dL RDW (11.5-14.5) % Immature Gran # (0.00-0.04) X 10*3/uL Neutrophils # (1.80-7.70) X 10*3/uL Monocytes # (0.20-1.00) X 10*3/uL Chloride 89 L (96-109) mmol/L Carbon Dioxide 36.3 H (21.6-31.8) mmol/L Anion Gap 14.70 H (4.00-12.00) mmol/L BUN 39.4 H (9.0-27.0) mg/dL BUN/Creatinine Ratio 49.25 H (12.00-20.00) Ratio Glucose 142 H (70-110) mg/dL POC Glucose (mg/dL) 165 H 174 H (70-110) mg/dL Total Protein 5.5 L (6.2-8.2) g/dL Albumin 3.1 L (3.8-4.9) g/dL Albumin/Globulin Ratio 1.29 L (1.60-3.17) Ratio
--- NOTE | 2024-01-12 15:26 | P.PN ---
Subjective Progress Note Date: 01/12/24 Principal diagnosis: right middle lobe masslike consolidation with air bronchogram differential diagnosis pneumonia versus postobstructive pneumonia right parahilar mass 5 x 3.4 cm in size likely neoplasm, however aspart patient diagnosed as a cancer and [place] [facility] about a year ago, he had a bronchoscopy and biopsy, recommended for radiation and chemotherapy but patient did not follow throughwill obtain path report computed tomography scan reports and consult oncology Acute on chronic hypoxic respiratory failure due to baseline COPD congestive heart failure with acute exacerbation congestive heart failure with acute exacerbation, on diuresis Hypotension related to above as well as diuresis, will initiate patient on low- dose midodrine UTI secondary to Klebsiella most likely, on IV Rocephin follow-up on culture and sensitivity reports type 2 diabetes mellitus on short and long-acting insulin 01/12/2024, patient seen eval examined during rounds labs reviewed medications Discussed, Patient Remains on Theater Oxygen, He Remains on Broad-Spectrum Antibiotics and Breathing Treatments, continued to have pain in the neck, found out that the neurosurgeon that has been following the patient is not and staff in this hospital advised to see the neurosurgery/spinal surgery in outpatient, legal guardian is being arranged by the social and human services assistant.laboratory data reviewed cultures no growth, urine culture positive for Klebsiella. Patient is on IV Rocephin LIGHT sensitive to it. Patient also on continuation of home medications oncology is following January 11, 2024, patient seen evaluate examined during rounds labs reviewed medications reviewed respiratory status continue to improve, awaiting further advice from the oncology department however patient is complaining of extreme pain in the neck as well as shooting pain down in the spine, patient has seen a spine surgeon Dr. Frank will consult spine surgery awaiting further advice from them, patient however remains on 3 L oxygen saturations mid 90s hemodynamic status stable, patient remains on bronchodilators as well as IV broad-spectrum antibiotics patient is being monitored and observe off of steroids 01/10/2024, patient seen eval examined overall respiratory status is still marginal get short of breath on minimal activity and exertion, on 3 L oxygen,saturation is a 88% transientlyadvised to take deep breathing exercises incentive spirometry hemodynamic status stable blood pressure 124/63 respiratory rate is 20 heart rate 64 temperature 98, labs are not done today blood glucose is 220 01/09/2024, patient seen eval examined during rounds labs reviewed medications reviewed care plan discussed, respiratory status overall stable, patient has been found to have diverticulosis on colonoscopy no active bleeding site identified, patient has some pain in the C-spine and back which is under control with pain medications, patient remains on broad-spectrum antibiotics for postob structive pneumonia, awaiting further recommendation from oncology. Remains afebrile, oxygen saturation is 94% on 3 L oxygen, hemodynamic status stable last set of blood pressure 95/65. Patient remains on bronchodilator and broad- spectrum IV antibiotics patient is being monitor observe off of steroids 01/08/2024, patient seen eval examined during rounds labs reviewed medications reviewed, patient remains on antigen is a cannula, oxygen saturation mid 90s,96% on 3 L, blood pressure 120/65, afebrile with temperature 90.7, chemistry today reviewed sodium is 1:30 position for BUN/creatinine is a 35/0.9 slightly up, blood glucose 97, white cell count 8.2 hemoglobin and hematocrit is 10.6/37urine culture came back positive for Klebsiellapatient is on the Rocephin, and ID service following, also has been IV steroids and bronchodilator disease following for mass is status post colonoscopy tolerated well no diverticulosis seen otherwise no significant pathology seen January 07, 2024, patient seen and examined during rounds labs reviewed medications reviewed care plan discussed, patient is back on 3 L nasal cannula denies any chest pain, patient is currently n.p.o. for endoscopy oxygen saturation 91% on 3 L nasal cannula, chest x-ray interstitial edema right lower lobe pneumonia v ersus atelectasi. Proceed with endoscopy as planned 01/05/2024, patient seen eval examined the rounds labs reviewed medications reviewed care plan discussed, patient is awake and alert on 3 L oxygen saturation mid 90s, remains on broad-spectrum antibiotics, patient has transient desaturation post endoscopy however subsequently improved and back to baseline.saturation is 95% hemodynamic status stable patient remains afebrile,S x-ray performed today reviewed persistent right basilar infiltrate are present 01/04/2024, patient seen and evaluated examined during rounds labs reviewed m edications reviewed care plan discussed, patient remains afebrile with stable hemodynamics, oxygen saturation 92% on 3 L nasal cannula, ongoing cough congestion shortness of breath present which however stableon bronchodilator inhaled corticosteroids and broad-spectrum antibiotics patient remains on IV Solu-Medrol every 8 hourly 40 mg patient is being given midodrine as well, patient has been evaluated by medical oncology awaiting records. Patient underwent endoscopy upper however postoperatively developed desaturations colonoscopy was canceled 68-year-old male with extensive history of smoking and nicotine use chronic hypoxic respiratory failure uses 2-1/2 L oxygen at home, admitted into the hospital with generalized weakness with history of intermittent fall patient has extensive swelling of the lower extremity with chronic skin changes and early cellulitis. Patient had a chest x-ray which shows bilateral small pleural effusion more so on the right side compared left side and CHF-like finding, however computed tomography scan of the chest revealed significant finding of right hilar mass/lymphadenopathy about 5 x 3 cm in size. Patient expresses that he has been evaluated at [facility] had a biopsy done about a year ago he was recommended for chemo and radiation therapy but patient couldn't find transportation and did not follow through.he has been on direct oral antico agulant with the last was yesterday. Due to generalized weakness patient was evaluated in primary care service also noted to be anemic advised to be admitted to hospital patient fact for scheduled for C-spine surgery which has been postponed. 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 Currently patient is on bronchodilators, IV Rocephin,labs are significant for white cells are 10.3, hemoglobin and hematocrit 11/30 MCV 76, when necessary is 31 creatinine 1.2 glucose 129urine culture positive for gram-negative rods patient has a history of Klebsiella oxytocin in the past Objective - Vital Signs Vital signs: Vital Signs Temp 98.6 F 01/12/24 14:00 Pulse 65 01/12/24 14:00 Resp 20 01/12/24 14:00 BP 113/60 01/12/24 14:00 Pulse Ox 95 01/12/24 14:00 FiO2 Intake & Output 01/11/24 01/12/24 01/12/24 18:59 06:59 18:59 Intake Total 50 480 Output Total 1200 1150 650 Balance -1150 -1150 -170 Weight 67.8 kg Intake: Intake, IV Titration 50 Amount cefTRIAXone 2 gm In 50 Sodium Chloride 0.9% 50 ml @ 100 mls/hr IVPB Q24H [facility] Rx#:[id number] Oral 480 Output: Urine 1200 1150 650 Other: Voiding Method External Catheter - Exam - Constitutional General appearance: average body habitus, cooperative, disheveled - EENT Eyes: EOMI, PERRLA ENT: normal oropharynx Ears: bilateral: normal - Neck Neck: normal ROM Carotids: bilateral: upstroke normal Thyroid: bilateral: normal size - Respiratory Respiratory: right: diminished, dullness, bilateral: rales - Cardiovascular Rhythm: regular Heart sounds: normal: S1, S2 - Gastrointestinal General gastrointestinal: normal bowel sounds, soft - Integumentary bilateral +3 edema of lower extremity along with the chronic skin changes earlier erythema suggestive of developing cellulitis - Neurologic Neurologic: CNII-XII intact - Musculoskeletal Musculoskeletal: generalized weakness, strength equal bilaterally - Psychiatric Psychiatric: A&O x's 3, appropriate affect, intact judgment & insight - Labs CBC & Chem 7: 01/12/24 04:59 01/12/24 04:59 Labs: Abnormal Lab Results - Last 24 Hours (Table) 01/11/24 01/11/24 01/12/24 Range/Units 16:23 20:21 04:59 WBC 11.29 H (4.50-10.00) X 10*3/uL Hgb 10.7 L (13.0-17.0) g/dL Hct 38.4 L (39.6-50.0) % MCV 79.0 L (80.0-97.0) FL MCH 22.0 L (27.0-32.0) pg MCHC 27.9 L (32.0-37.0) g/dL RDW 25.9 H (11.5-14.5) % Immature Gran # 0.06 H (0.00-0.04) X 10*3/uL Neutrophils # 8.56 H (1.80-7.70) X 10*3/uL Monocytes # 1.45 H (0.20-1.00) X 10*3/uL Chloride (96-109) mmol/L Carbon Dioxide (21.6-31.8) mmol/L Anion Gap (4.00-12.00) mmol/L BUN (9.0-27.0) mg/dL BUN/Creatinine Ratio (12.00-20.00) Ratio Glucose (70-110) mg/dL POC Glucose (mg/dL) 201 H 222 H (70-110) mg/dL Total Protein (6.2-8.2) g/dL Albumin (3.8-4.9) g/dL Albumin/Globulin Ratio (1.60-3.17) Ratio 01/12/24 01/12/24 01/12/24 Range/Units 04:59 05:52 11:27 WBC (4.50-10.00) X 10*3/uL Hgb (13.0-17.0) g/dL Hct (39.6-50.0) % MCV (80.0-97.0) FL MCH (27.0-32.0) pg MCHC (32.0-37.0) g/dL RDW (11.5-14.5) % Immature Gran # (0.00-0.04) X 10*3/uL Neutrophils # (1.80-7.70) X 10*3/uL Monocytes # (0.20-1.00) X 10*3/uL Chloride 89 L (96-109) mmol/L Carbon Dioxide 36.3 H (21.6-31.8) mmol/L Anion Gap 14.70 H (4.00-12.00) mmol/L BUN 39.4 H (9.0-27.0) mg/dL BUN/Creatinine Ratio 49.25 H (12.00-20.00) Ratio Glucose 142 H (70-110) mg/dL POC Glucose (mg/dL) 165 H 174 H (70-110) mg/dL Total Protein 5.5 L (6.2-8.2) g/dL Albumin 3.1 L (3.8-4.9) g/dL Albumin/Globulin Ratio 1.29 L (1.60-3.17) Ratio Assessment and Plan Assessment: acute on chronic hypoxic history failure improved patient on 3 L nasal cannula sats are low but stable and back to baseline, transient desaturation noted earlier this morning we'll obtain a chest x-ray patient being Constipated nasal cannula right middle lobe masslike consolidation with air bronchogram differential diag nosis pneumonia versus postobstructive pneumonia, continue antibiotics oncology following awaiting records from Radha Morales right parahilar mass 5 x 3.4 cm in size likely neoplasm, however as per patient diagnosed as a cancer and [facility] about a year ago, he had a bronchoscopy and biopsy, recommended for radiation and chemotherapy but patient did not follow through,will obtain path report computed tomography scan reports and consult oncology, notes noted and appreciated patient requested care to be performed over here in [place] [address] Severe degree of neck pain and back pain with shooting pain sensation, spine surgery has been consulted Acute on chronic hypoxic respiratory failure due to baseline COPD congestive heart failure with acute exacerbation acute COPD exacerbation, patient is being monitored off of steroids on antibiotics as as well as bronchodilators congestive heart failure with acute exacerbation, on diuresis Hypotension related to above as well as diuresis, will initiate patient on low- dose midodrine UTI secondary to Klebsiella most likely, on IV Rocephin follow-up on culture and sensitivity reports type 2 diabetes mellitus on short and long-acting insulin Issues related to replacement, legal guardian is being appointed by the court system Plan: as above Time with Patient: Greater than 30
[2024-01-12 17:00] LABS: Glucose,Whole Blood 247 mg/dL (70-110)
[2024-01-12 20:57] LABS: Glucose,Whole Blood 237 mg/dL (70-110)
[2024-01-13 06:01] LABS: Glucose,Whole Blood 141 mg/dL (70-110)
--- NOTE | 2024-01-13 10:35 | P.PN ---
Subjective Progress Note Date: 01/13/24 CHIEF COMPLAINT: Anemia HISTORY OF PRESENT ILLNESS: Patient is status post EGD revealing antral gastritis. Patient is status post colonoscopy that reported diverticulosis. no new complaints. PHYSICAL EXAM: VITAL SIGNS: Reviewed. GENERAL: no acute distress. ABDOMEN: Soft. Nondistended. Nontender. ASSESSMENT: 1. Anemia. Status post EGD revealing antral gastritis. Colonoscopy with diverticulosis. No active bleeding. 2. Lung Cancer PLAN: -Patient can be discharged from surgical standpoint -Continue Protonix at discharge -Patient is awaiting to be assigned a public guardian Physician Stacking Machine Operator note has been reviewed by physician. Signing provider agrees with the documented findings, assessment, and plan of care. Objective - Vital Signs Vital signs: Vital Signs Temp 99.2 F 01/13/24 07:32 Pulse 64 01/13/24 10:02 Resp 17 01/13/24 08:55 BP 121/51 01/13/24 07:32 Pulse Ox 95 01/13/24 07:32 FiO2 Intake & Output 01/12/24 01/13/24 01/13/24 18:59 06:59 18:59 Intake Total 480 Output Total 1250 Balance -770 Intake: Oral 480 Output: Urine 1250 Other: Voiding Method External Catheter External Catheter # Voids 3 - Labs CBC & Chem 7: 01/12/24 04:59 01/12/24 04:59 Labs: Abnormal Lab Results - Last 24 Hours (Table) 01/12/24 01/12/24 01/12/24 Range/Units 04:59 11:27 16:59 Chloride 89 L (96-109) mmol/L Carbon Dioxide 36.3 H (21.6-31.8) mmol/L Anion Gap 14.70 H (4.00-12.00) mmol/L BUN 39.4 H (9.0-27.0) mg/dL BUN/Creatinine Ratio 49.25 H (12.00-20.00) Ratio Glucose 142 H (70-110) mg/dL POC Glucose (mg/dL) 174 H 247 H (70-110) mg/dL Total Protein 5.5 L (6.2-8.2) g/dL Albumin 3.1 L (3.8-4.9) g/dL Albumin/Globulin Ratio 1.29 L (1.60-3.17) Ratio 01/12/24 01/13/24 Range/Units 20:53 06:00 Chloride (96-109) mmol/L Carbon Dioxide (21.6-31.8) mmol/L Anion Gap (4.00-12.00) mmol/L BUN (9.0-27.0) mg/dL BUN/Creatinine Ratio (12.00-20.00) Ratio Glucose (70-110) mg/dL POC Glucose (mg/dL) 237 H 141 H (70-110) mg/dL Total Protein (6.2-8.2) g/dL Albumin (3.8-4.9) g/dL Albumin/Globulin Ratio (1.60-3.17) Ratio
[2024-01-13 11:45] LABS: Glucose,Whole Blood 237 mg/dL (70-110)
[2024-01-13 16:20] LABS: Glucose,Whole Blood 118 mg/dL (70-110)
[2024-01-13 20:42] LABS: Glucose,Whole Blood 267 mg/dL (70-110)
--- NOTE | 2024-01-14 01:12 | PN ---
PROGRESS NOTE SUBJECTIVE: Seen by Surgery today for anemia, status post EGD, antral gastritis, diverticulitis. No active bleeding. Lung cancer surgery. Discharge home. Waiting for placement for him. OBJECTIVE: VITAL SIGNS: He is saturating 96% on 3 L. Temp 97.2, blood pressure 123/63, pulse 59 to 61, respiratory rate 16 to 18. LUNGS: Decreased breath sounds x4. CARDIOVASCULAR: S1, S2. HEMATOLOGY: Negative Homans. PSYCH: Fair mood and affect. ASSESSMENT: He has a Klebsiella oxytoca urinary tract infection, for which he is on IV antibiotics for. Acute on chronic diastolic heart failure, slow improvement. Waiting for guardian to find him a place to go for discharge planning. MMODL / IJN: [id number] /
[2024-01-14 05:39] LABS: Glucose,Whole Blood 294 mg/dL (70-110)
[2024-01-14 09:03] LABS: ALT 21 U/L (10-49); AST 17 U/L (14-35); Albumin 3.2 g/dL (3.8-4.9); Albumin/Globulin Ratio 1.33 Ratio (1.60-3.17); Alkaline Phosphatase 102 U/L (41-126); BUN/Creat Ratio 41.56 Ratio (12.00-20.00); Blood Urea Nitrogen 37.4 mg/dL (9.0-27.0); Calcium 8.8 mg/dL (8.7-10.3); Carbon Dioxide 38.9 mmol/L (21.6-31.8); Chloride 88 mmol/L (96-109); Globulin 2.4 g/dL (1.6-3.3); Glucose 187 mg/dL (70-110); Potassium 3.9 mmol/L (3.5-5.5); Sodium 138 mmol/L (135-145); Total Bilirubin 0.2 mg/dL (0.3-1.2); Total Protein 5.6 g/dL (6.2-8.2)
[2024-01-14 09:21] LABS: HCT 36.7 % (39.6-50.0); HGB 10.4 g/dL (13.0-17.0); MCH 22.8 pg (27.0-32.0); MCHC 28.3 g/dL (32.0-37.0); MCV 80.5 FL (80.0-97.0); NRBC Per 100 WBC 0 X 10*3/uL (0.00-0.01); Platelet Count 290 X 10*3/uL (140-440); RBC 4.56 X 10*6/uL (4.40-5.60); RDW 25.9 % (11.5-14.5); WBC 9.81 X 10*3/uL (4.50-10.00)
[2024-01-14 09:45] LABS: Anisocytosis (M) 2+; Basophils # (A) 0.03 X 10*3/uL (0.00-0.10); Basophils % (A) 0.3 %; Eosinophils # (A) 0.05 X 10*3/uL (0.04-0.35); Eosinophils % (A) 0.5 %; Hypochromasia (M) 2+; Lymphocytes # (A) 1.29 X 10*3/uL (0.90-5.00); Lymphocytes % (A) 13.1 %; Microcytosis (M) 2+; Monocytes # (A) 1.57 X 10*3/uL (0.20-1.00); Neutrophils # (A) 6.84 X 10*3/uL (1.80-7.70); Neutrophils % (A) 69.8 %
--- NOTE | 2024-01-14 10:39 | P.PN ---
Subjective Progress Note Date: 01/14/24 CHIEF COMPLAINT: Anemia HISTORY OF PRESENT ILLNESS: Patient is status post EGD revealing antral gastritis. Patient is status post colonoscopy that reported diverticulosis. no new complaints. PHYSICAL EXAM: VITAL SIGNS: Reviewed. GENERAL: no acute distress. ABDOMEN: Soft. Nondistended. Nontender. ASSESSMENT: 1. Anemia. Status post EGD revealing antral gastritis. Colonoscopy with diverticulosis. No active bleeding. 2. Lung Cancer PLAN: -Patient can be discharged from surgical standpoint -Continue Protonix at discharge -loft worker head arranging discharge plan Physician Virtual Assistant For Advertisers note has been reviewed by physician. Signing provider agrees with the documented findings, assessment, and plan of care. Objective - Vital Signs Vital signs: Vital Signs Temp 97.4 F L 01/14/24 07:01 Pulse 63 01/14/24 07:01 Resp 18 01/14/24 07:01 BP 112/61 01/14/24 07:01 Pulse Ox 93 L 01/14/24 07:01 FiO2 Intake & Output 01/13/24 01/14/24 01/14/24 18:59 06:59 18:59 Output Total 650 1500 Balance -650 -1500 Weight 67.8 kg Output: Urine 650 1500 Other: Voiding Method External Catheter External Catheter - Labs CBC & Chem 7: 01/14/24 03:34 01/14/24 03:34 Labs: Abnormal Lab Results - Last 24 Hours (Table) 01/13/24 01/13/24 01/13/24 Range/Units 11:43 16:19 20:40 Hgb (13.0-17.0) g/dL Hct (39.6-50.0) % MCH (27.0-32.0) pg MCHC (32.0-37.0) g/dL RDW (11.5-14.5) % Monocytes # (0.20-1.00) X 10*3/uL Hypochromasia (manual) Anisocytosis (manual) Microcytosis (manual) Chloride (96-109) mmol/L Carbon Dioxide (21.6-31.8) mmol/L BUN (9.0-27.0) mg/dL BUN/Creatinine Ratio (12.00-20.00) Ratio Glucose (70-110) mg/dL POC Glucose (mg/dL) 237 H 118 H 267 H (70-110) mg/dL Total Bilirubin (0.3-1.2) mg/dL Total Protein (6.2-8.2) g/dL Albumin (3.8-4.9) g/dL Albumin/Globulin Ratio (1.60-3.17) Ratio 01/14/24 01/14/24 01/14/24 Range/Units 03:34 03:34 05:38 Hgb 10.4 L (13.0-17.0) g/dL Hct 36.7 L (39.6-50.0) % MCH 22.8 L (27.0-32.0) pg MCHC 28.3 L (32.0-37.0) g/dL RDW 25.9 H (11.5-14.5) % Monocytes # 1.57 H (0.20-1.00) X 10*3/uL Hypochromasia (manual) 2+ A Anisocytosis (manual) 2+ A Microcytosis (manual) 2+ A Chloride 88 L (96-109) mmol/L Carbon Dioxide 38.9 H (21.6-31.8) mmol/L BUN 37.4 H (9.0-27.0) mg/dL BUN/Creatinine Ratio 41.56 H (12.00-20.00) Ratio Glucose 187 H (70-110) mg/dL POC Glucose (mg/dL) 294 H (70-110) mg/dL Total Bilirubin 0.2 L (0.3-1.2) mg/dL Total Protein 5.6 L (6.2-8.2) g/dL Albumin 3.2 L (3.8-4.9) g/dL Albumin/Globulin Ratio 1.33 L (1.60-3.17) Ratio
[2024-01-14 12:13] LABS: Glucose,Whole Blood 168 mg/dL (70-110)
--- NOTE | 2024-01-14 15:51 | P.PN ---
Subjective Progress Note Date: 01/12/24 Principal diagnosis: Reason for follow-up is urinary tract infection Patient is a 68-year-old male with a past medical history significant for diabetes mellitus hypertension CVA TIA COPD current everyday smoker presenting to the hospital for evaluation of increased weakness and difficulty breathing, patient did have elevated white count did have a positive UA concer shahana for possible drug-resistant UTI prompting this consultation. Patient also have abnormal CT of the chest with masslike consolidation apparently has been diagnosed with the lung cancer last year as per discussion with the pulmonary. On today's evaluation that is 01/12/2024, Patient is afebrile patient is currently on 3 L nasal cannula oxygen and denies having any shortness of breath, the patient denies any chest pain or any worsening cough cough, the patient denies any nausea vomiting did not have any abdominal pain and no diarrhea, still complaining of weakness to lower extremity and difficulty walking Patient did have white count of 11.29 creatinine 0.8 Objective - Vital Signs Vital signs: Vital Signs Temp 98.6 F 01/12/24 14:00 Pulse 65 01/12/24 14:00 Resp 20 01/12/24 14:00 BP 113/60 01/12/24 14:00 Pulse Ox 95 01/12/24 14:00 FiO2 Intake & Output 01/11/24 01/12/24 01/12/24 18:59 06:59 18:59 Intake Total 50 480 Output Total 1200 1150 650 Balance -1150 -1150 -170 Weight 67.8 kg Intake: Intake, IV Titration 50 Amount cefTRIAXone 2 gm In 50 Sodium Chloride 0.9% 50 ml @ 100 mls/hr IVPB Q24H [facility] Rx#:[id number] Oral 480 Output: Urine 1200 1150 650 Other: Voiding Method External Catheter - Exam GENERAL DESCRIPTION: An elderly male lying in bed in no distress RESPIRATORY SYSTEM: Unlabored breathing , coarse breath sounds bilaterally HEART: S1 S2 regular rate and rhythm , ABDOMEN: Soft , no tenderness EXTREMITIES: Bilateral lower extremity with some swelling and superficial ulceration - Labs CBC & Chem 7: 01/14/24 03:34 01/14/24 03:34 Labs: Abnormal Lab Results - Last 24 Hours (Table) 01/11/24 01/11/24 01/12/24 Range/Units 16:23 20:21 04:59 WBC 11.29 H (4.50-10.00) X 10*3/uL Hgb 10.7 L (13.0-17.0) g/dL Hct 38.4 L (39.6-50.0) % MCV 79.0 L (80.0-97.0) FL MCH 22.0 L (27.0-32.0) pg MCHC 27.9 L (32.0-37.0) g/dL RDW 25.9 H (11.5-14.5) % Immature Gran # 0.06 H (0.00-0.04) X 10*3/uL Neutrophils # 8.56 H (1.80-7.70) X 10*3/uL Monocytes # 1.45 H (0.20-1.00) X 10*3/uL Chloride (96-109) mmol/L Carbon Dioxide (21.6-31.8) mmol/L Anion Gap (4.00-12.00) mmol/L BUN (9.0-27.0) mg/dL BUN/Creatinine Ratio (12.00-20.00) Ratio Glucose (70-110) mg/dL POC Glucose (mg/dL) 201 H 222 H (70-110) mg/dL Total Protein (6.2-8.2) g/dL Albumin (3.8-4.9) g/dL Albumin/Globulin Ratio (1.60-3.17) Ratio 01/12/24 01/12/24 01/12/24 Range/Units 04:59 05:52 11:27 WBC (4.50-10.00) X 10*3/uL Hgb (13.0-17.0) g/dL Hct (39.6-50.0) % MCV (80.0-97.0) FL MCH (27.0-32.0) pg MCHC (32.0-37.0) g/dL RDW (11.5-14.5) % Immature Gran # (0.00-0.04) X 10*3/uL Neutrophils # (1.80-7.70) X 10*3/uL Monocytes # (0.20-1.00) X 10*3/uL Chloride 89 L (96-109) mmol/L Carbon Dioxide 36.3 H (21.6-31.8) mmol/L Anion Gap 14.70 H (4.00-12.00) mmol/L BUN 39.4 H (9.0-27.0) mg/dL BUN/Creatinine Ratio 49.25 H (12.00-20.00) Ratio Glucose 142 H (70-110) mg/dL POC Glucose (mg/dL) 165 H 174 H (70-110) mg/dL Total Protein 5.5 L (6.2-8.2) g/dL Albumin 3.1 L (3.8-4.9) g/dL Albumin/Globulin Ratio 1.29 L (1.60-3.17) Ratio Assessment and Plan (1) Urinary tract infection Current Visit: Yes Status: Acute Code(s): N39.0 - URINARY TRACT INFECTION, SITE NOT SPECIFIED SNOMED Code(s): 83209021 Plan: 1patient presented to hospital with generalized weakness which is likely multifactorial patient did have some urinary symptoms positive UA concerning for symptomatic UTI with a last urine culture positive for Klebsiella that was intermediate to Unasyn 2-patient also have abnormal CT of the chest concerning for masslike consolidation and lymphadenopathy concerning for possible malignancy, in this patient who did have a diagnosis of lung cancer last year but did not have any follow-up pulmonary and oncology following the patient 3patient urine culture grew Klebsiella that is sensitive to ceftriaxone 4-patient is afebrile white count is slightly elevated today will monitor closely for now continue with Rocephin and continue supportive care Dictation was produced using [employer] dictation software. please excuse any grammatical, word or spelling errors. Time with Patient: Less than 30
--- NOTE | 2024-01-14 15:52 | P.PN ---
Subjective Progress Note Date: 01/13/24 Principal diagnosis: Reason for follow-up is urinary tract infection Patient is a 68-year-old male with a past medical history significant for diabetes mellitus hypertension CVA TIA COPD current everyday smoker presenting to the hospital for evaluation of increased weakness and difficulty breathing, patient did have elevated white count did have a positive UA concer shahana for possible drug-resistant UTI prompting this consultation. Patient also have abnormal CT of the chest with masslike consolidation apparently has been diagnosed with the lung cancer last year as per discussion with the pulmonary. On today's evaluation that is 01/13/2024, patient has been afebrile, patient is breathing comfortably and is currently on 3 L nasal cannula oxygen, patient denies having any significant cough no chest pain shortness of breath, patient denies nausea vomiting or diarrhea and no abdominal pain No laboratory Objective - Vital Signs Vital signs: Vital Signs Temp 98.2 F 01/13/24 15:22 Pulse 59 L 01/13/24 15:22 Resp 16 01/13/24 15:22 BP 114/69 01/13/24 15:22 Pulse Ox 94 L 01/13/24 15:22 FiO2 Intake & Output 01/12/24 01/13/24 01/13/24 18:59 06:59 18:59 Intake Total 480 Output Total 1250 Balance -770 Weight 67.8 kg Intake: Oral 480 Output: Urine 1250 Other: Voiding Method External Catheter External Catheter # Voids 3 - Exam GENERAL DESCRIPTION: An elderly male lying in bed in no distress RESPIRATORY SYSTEM: Unlabored breathing , coarse breath sounds bilaterally HEART: S1 S2 regular rate and rhythm , ABDOMEN: Soft , no tenderness EXTREMITIES: Bilateral lower extremity with some swelling and superficial ulceration - Labs CBC & Chem 7: 01/14/24 03:34 01/14/24 03:34 Labs: Abnormal Lab Results - Last 24 Hours (Table) 01/12/24 01/12/24 01/13/24 Range/Units 16:59 20:53 06:00 POC Glucose (mg/dL) 247 H 237 H 141 H (70-110) mg/dL 01/13/24 01/13/24 Range/Units 11:43 16:19 POC Glucose (mg/dL) 237 H 118 H (70-110) mg/dL Assessment and Plan (1) Urinary tract infection Current Visit: Yes Status: Acute Code(s): N39.0 - URINARY TRACT INFECTION, SITE NOT SPECIFIED SNOMED Code(s): 55250147 (2) Pneumonia Current Visit: Yes Status: Acute Code(s): J18.9 - PNEUMONIA, UNSPECIFIED ORGANISM SNOMED Code(s): 159835973 Plan: 1patient presented to hospital with generalized weakness which is likely multifactorial patient did have some urinary symptoms positive UA concerning for symptomatic UTI with a last urine culture positive for Klebsiella that was intermediate to Unasyn 2-patient also have abnormal CT of the chest concerning for masslike consolidation and lymphadenopathy concerning for possible malignancy, in this patient who did have a diagnosis of lung cancer last year but did not have any follow-up pulmonary and oncology following the patient 3patient urine culture grew Klebsiella that is sensitive to ceftriaxone 4-patient is afebrile white count is slightly elevated yesterday we will repeat a CBC with a.m. lab and for now continue with Rocephin Dictation was produced using [employer] dictation software. please excuse any grammatical, word or spelling errors. Time with Patient: Less than 30
--- NOTE | 2024-01-14 15:53 | P.PN ---
Subjective Progress Note Date: 01/14/24 Principal diagnosis: Reason for follow-up is urinary tract infection Patient is a 68-year-old male with a past medical history significant for diabetes mellitus hypertension CVA TIA COPD current everyday smoker presenting to the hospital for evaluation of increased weakness and difficulty breathing, patient did have elevated white count did have a positive UA concer shahana for possible drug-resistant UTI prompting this consultation. Patient also have abnormal CT of the chest with masslike consolidation apparently has been diagnosed with the lung cancer last year as per discussion with the pulmonary. On today's evaluation that is 01/14/2024,the patient denies any fever or any chills, patient is breathing comfortably on 3 L nasal cannula oxygen feeling slightly better today, the patient denies chest pain shortness of breath and no significant cough, patient denies abdominal pain, no nausea vomiting or diarrhea. Patient white count normalized to 9.81 creatinine 0.9 Objective - Vital Signs Vital signs: Vital Signs Temp 97.4 F L 01/14/24 07:01 Pulse 63 01/14/24 07:01 Resp 18 01/14/24 07:01 BP 112/61 01/14/24 07:01 Pulse Ox 93 L 01/14/24 07:01 FiO2 Intake & Output 01/13/24 01/14/24 01/14/24 18:59 06:59 18:59 Output Total 650 1500 Balance -650 -1500 Weight 67.8 kg Output: Urine 650 1500 Other: Voiding Method External Catheter External Catheter - Exam GENERAL DESCRIPTION: An elderly male lying in bed in no distress RESPIRATORY SYSTEM: Unlabored breathing , coarse breath sounds bilaterally HEART: S1 S2 regular rate and rhythm , ABDOMEN: Soft , no tenderness EXTREMITIES: Bilateral lower extremity with some swelling and superficial ulceration - Labs CBC & Chem 7: 01/14/24 03:34 01/14/24 03:34 Labs: Abnormal Lab Results - Last 24 Hours (Table) 01/13/24 01/13/24 01/14/24 Range/Units 16:19 20:40 03:34 Hgb 10.4 L (13.0-17.0) g/dL Hct 36.7 L (39.6-50.0) % MCH 22.8 L (27.0-32.0) pg MCHC 28.3 L (32.0-37.0) g/dL RDW 25.9 H (11.5-14.5) % Monocytes # 1.57 H (0.20-1.00) X 10*3/uL Hypochromasia (manual) 2+ A Anisocytosis (manual) 2+ A Microcytosis (manual) 2+ A Chloride (96-109) mmol/L Carbon Dioxide (21.6-31.8) mmol/L BUN (9.0-27.0) mg/dL BUN/Creatinine Ratio (12.00-20.00) Ratio Glucose (70-110) mg/dL POC Glucose (mg/dL) 118 H 267 H (70-110) mg/dL Total Bilirubin (0.3-1.2) mg/dL Total Protein (6.2-8.2) g/dL Albumin (3.8-4.9) g/dL Albumin/Globulin Ratio (1.60-3.17) Ratio 01/14/24 01/14/24 01/14/24 Range/Units 03:34 05:38 12:12 Hgb (13.0-17.0) g/dL Hct (39.6-50.0) % MCH (27.0-32.0) pg MCHC (32.0-37.0) g/dL RDW (11.5-14.5) % Monocytes # (0.20-1.00) X 10*3/uL Hypochromasia (manual) Anisocytosis (manual) Microcytosis (manual) Chloride 88 L (96-109) mmol/L Carbon Dioxide 38.9 H (21.6-31.8) mmol/L BUN 37.4 H (9.0-27.0) mg/dL BUN/Creatinine Ratio 41.56 H (12.00-20.00) Ratio Glucose 187 H (70-110) mg/dL POC Glucose (mg/dL) 294 H 168 H (70-110) mg/dL Total Bilirubin 0.2 L (0.3-1.2) mg/dL Total Protein 5.6 L (6.2-8.2) g/dL Albumin 3.2 L (3.8-4.9) g/dL Albumin/Globulin Ratio 1.33 L (1.60-3.17) Ratio Assessment and Plan (1) Urinary tract infection Current Visit: Yes Status: Acute Code(s): N39.0 - URINARY TRACT INFECTION, SITE NOT SPECIFIED SNOMED Code(s): 43342085 (2) Pneumonia Current Visit: Yes Status: Acute Code(s): J18.9 - PNEUMONIA, UNSPECIFIED ORGANISM SNOMED Code(s): 644130361 Plan: 1patient presented to hospital with generalized weakness which is likely multifactorial patient did have some urinary symptoms positive UA concerning for symptomatic UTI with a last urine culture positive for Klebsiella that was in termediate to Unasyn 2-patient also have abnormal CT of the chest concerning for masslike consolidat ion and lymphadenopathy concerning for possible malignancy, in this patient who did have a diagnosis of lung cancer last year but did not have any follow-up pulmonary and oncology following the patient 3patient urine culture grew Klebsiella that is sensitive to ceftriaxone 4-patient is afebrile and the patient white count has normalized patient has received adequate antibiotic therapy for both UTI and possible component of pneumonia we will go ahead and discontinue Rocephin and monitor the patient closely off antibiotic therapy Dictation was produced using [employer] dictation software. please excuse any grammatical, word or spelling errors. Time with Patient: Less than 30
[2024-01-14 16:44] LABS: Glucose,Whole Blood 156 mg/dL (70-110)
[2024-01-14 20:28] LABS: Glucose,Whole Blood 244 mg/dL (70-110)
[2024-01-15 05:42] LABS: Glucose,Whole Blood 139 mg/dL (70-110)
[2024-01-15 11:38] LABS: Glucose,Whole Blood 156 mg/dL (70-110)
--- NOTE | 2024-01-15 12:42 | P.PN ---
Subjective Progress Note Date: 01/15/24 CHIEF COMPLAINT: Anemia HISTORY OF PRESENT ILLNESS: Patient is status post EGD revealing antral gastritis. Patient is status post colonoscopy that reported diverticulosis. no new complaints. Hemoglobin stable at 10.4 PHYSICAL EXAM: VITAL SIGNS: Reviewed. GENERAL: no acute distress. ABDOMEN: Soft. Nondistended. Nontender. ASSESSMENT: 1. Anemia. Status post EGD revealing antral gastritis. Colonoscopy with diverticulosis. No active bleeding. 2. Lung Cancer PLAN: -Patient can be discharged from surgical standpoint -Continue Protonix at discharge -tool worker arranging discharge plan Physician Telephone Operator Chief note has been reviewed by physician. Signing provider agrees with the documented findings, assessment, and plan of care. Objective - Vital Signs Vital signs: Vital Signs Temp 98.9 F 01/15/24 06:57 Pulse 60 01/15/24 06:57 Resp 16 01/15/24 06:57 BP 116/58 01/15/24 06:57 Pulse Ox 95 01/15/24 09:14 FiO2 Intake & Output 01/14/24 01/15/24 01/15/24 18:59 06:59 18:59 Output Total 400 Balance -400 Output: Urine 400 Other: Voiding Method External Catheter # Voids 2 - Labs CBC & Chem 7: 01/14/24 03:34 01/14/24 03:34 Labs: Abnormal Lab Results - Last 24 Hours (Table) 01/14/24 01/14/24 01/15/24 Range/Units 16:42 20:26 05:37 POC Glucose (mg/dL) 156 H 244 H 139 H (70-110) mg/dL 01/15/24 Range/Units 11:38 POC Glucose (mg/dL) 156 H (70-110) mg/dL
--- NOTE | 2024-01-15 14:42 | P.PN ---
Subjective Progress Note Date: 01/14/24 Principal diagnosis: right middle lobe masslike consolidation with air bronchogram differential diagnosis pneumonia versus postobstructive pneumonia right parahilar mass 5 x 3.4 cm in size likely neoplasm, however aspart patient diagnosed as a cancer and [facility] about a year ago, he had a bronchoscopy and biopsy, recommended for radiation and chemotherapy but patient did not follow throughwill obtain path report computed tomography scan reports and consult oncology Acute on chronic hypoxic respiratory failure due to baseline COPD congestive heart failure with acute exacerbation congestive heart failure with acute exacerbation, on diuresis Hypotension related to above as well as diuresis, will initiate patient on low- dose midodrine UTI secondary to Klebsiella most likely, on IV Rocephin follow-up on culture and sensitivity reports type 2 diabetes mellitus on short and long-acting insulin January 14, 2024, patient seen and examined during rounds overall no significant changes still short of breath on activity and physician, continued to have pain in the cervical region, awaiting for placement and needs she is G001/14/2024, patient seen eval examined during the rounds overall no significant changes still short of breath on activity and exertion, continued to have pain in the cervical region, awaiting for placement transition social worker following for legal guardi an.social work of firing for legal guardian. Patient remains stable on 3 L nasal cannula, no chest pain or shortness of breath no cough or sputum production, labs reviewed white cell count is 9.1legal guardian. Patient remains stable on 3 L nasal cannula, no chest pain or shortness breath no cough or sputum production, labs reviewed white cell count is 9.1 creatinine stable 1.9 patient is afebrile with stable hemodynamics oxygen saturation 93%. creatinine stable 0.9 patient is afebrile with stable hemodynamics oxygen saturation 90%.. 01/12/2024, patient seen eval examined during rounds labs reviewed medications Discussed, Patient Remains on Theater Oxygen, He Remains on Broad-Spectrum Ant ibiotics and Breathing Treatments, continued to have pain in the neck, found out that the neurosurgeon that has been following the patient is not and staff in this hospital advised to see the neurosurgery/spinal surgery in outpatient, legal guardian is being arranged by the transition social worker.laboratory data reviewed cultures no growth, urine culture positive for Klebsiella. Patient is on IV Rocephin LIGHT sensitive to it. Patient also on continuation of home medications oncology is following January 11, 2024, patient seen evaluate examined during rounds labs reviewed medications reviewed respiratory status continue to improve, awaiting further advice from the oncology department however patient is complaining of extreme pain in the neck as well as shooting pain down in the spine, patient has seen a spine surgeon Dr. Frank will consult spine surgery awaiting further advice from them, patient however remains on 3 L oxygen saturations mid 90s hemodynamic status stable, patient remains on bronchodilators as well as IV broad-spectrum antibiotics patient is being monitored and observe off of steroids 01/10/2024, patient seen eval examined overall respiratory status is still marginal get short of breath on minimal activity and exertion, on 3 L oxygen,saturation is a 88% transientlyadvised to take deep breathing exercises incentive spirometry hemodynamic status stable blood pressure 124/63 respiratory rate is 20 heart rate 64 temperature 98, labs are not done today blood glucose is 220 01/09/2024, patient seen eval examined during rounds labs reviewed medications reviewed care plan discussed, respiratory status overall stable, patient has been found to have diverticulosis on colonoscopy no active bleeding site identified, patient has some pain in the C-spine and back which is under control with pain medications, patient remains on broad-spectrum antibiotics for postobstructive pneumonia, awaiting further recommendation from oncology. Remains afebrile, oxygen saturation is 94% on 3 L oxygen, hemodynamic status stable last set of blood pressure 95/65. Patient remains on bronchodilator and broad-spectrum IV antibiotics patient is being monitor observe off of steroids 01/08/2024, patient seen eval examined during rounds labs reviewed medications reviewed, patient remains on antigen is a cannula, oxygen saturation mid 90s,96% on 3 L, blood pressure 120/65, afebrile with temperature 90.7, chemistry today reviewed sodium is 1:30 position for BUN/creatinine is a 35/0.9 slightly up, blood glucose 97, white cell count 8.2 hemoglobin and hematocrit is 10.6/37urine culture came back positive for Klebsiellapatient is on the Rocephin, and ID service following, also has been IV steroids and bronchodilator disease following for mass is status post colonoscopy tolerated well no diverticulosis seen otherwise no significant pathology seen January 07, 2024, patient seen and examined during rounds labs reviewed medications reviewed care plan discussed, patient is back on 3 L nasal cannula denies any chest pain, patient is currently n.p.o. for endoscopy oxygen saturation 91% on 3 L nasal cannula, chest x-ray interstitial edema right lower lobe pneumonia versus atelectasi. Proceed with endoscopy as planned 01/05/2024, patient seen eval examined the rounds labs reviewed medications reviewed care plan discussed, patient is awake and alert on 3 L oxygen saturation mid 90s, remains on broad-spectrum antibiotics, patient has transient desaturation post endoscopy however subsequently improved and back to baseline.saturation is 95% hemodynamic status stable patient remains afebrile,S x-ray performed today reviewed persistent right basilar infiltrate are present 01/04/2024, patient seen and evaluated examined during rounds labs reviewed medications reviewed care plan discussed, patient remains afebrile with stable hemodynamics, oxygen saturation 92% on 3 L nasal cannula, ongoing cough congestion shortness of breath present which however stableon bronchodilator inhaled corticosteroids and broad-spectrum antibiotics patient remains on IV Solu-Medrol every 8 hourly 40 mg patient is being given midodrine as well, patient has been evaluated by medical oncology awaiting records. Patient underwent endoscopy upper however postoperatively developed desaturations colonoscopy was canceled 68-year-old male with extensive history of smoking and nicotine use chronic hypoxic respiratory failure uses 2-1/2 L oxygen at home, admitted into the hospital with generalized weakness with history of intermittent fall patient has extensive swelling of the lower extremity with chronic skin changes and early cellulitis. Patient had a chest x-ray which shows bilateral small pleural effusion more so on the right side compared left side and CHF-like finding, however computed tomography scan of the chest revealed significant finding of right hilar mass/lymphadenopathy about 5 x 3 cm in size. Patient expresses that he has been evaluated at [facility] had a biopsy done about a year ago he was recommended for chemo and radiation therapy but patient couldn't find transportation and did not follow through.he has been on direct oral anticoagulant with the last was yesterday. Due to generalized weakness patient was evaluated in primary care service also noted to be anemic advised to be admitted to hospital patient fact for scheduled for C-spine surgery which has been postponed. 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 Currently patient is on bronchodilators, IV Rocephin,labs are significant for white cells are 10.3, hemoglobin and hematocrit /30 MCV 76, when necessary is 31 creatinine 1.2 glucose 129urine culture positive for gram-negative rods patient has a history of Klebsiella oxytocin in the past Objective - Vital Signs Vital signs: Vital Signs Temp 97.4 F L 01/14/24 07:01 Pulse 63 01/14/24 07:01 Resp 18 01/14/24 07:01 BP 112/61 01/14/24 07:01 Pulse Ox 93 L 01/14/24 07:01 FiO2 Intake & Output 01/13/24 01/14/24 01/14/24 18:59 06:59 18:59 Output Total 650 1500 Balance -650 -1500 Weight 67.8 kg Output: Urine 650 1500 Other: Voiding Method External Catheter External Catheter - Exam - Constitutional General appearance: average body habitus, cooperative, disheveled - EENT Eyes: EOMI, PERRLA ENT: normal oropharynx Ears: bilateral: normal - Neck Neck: normal ROM Carotids: bilateral: upstroke normal Thyroid: bilateral: normal size - Respiratory Respiratory: right: diminished, dullness, bilateral: rales - Cardiovascular Rhythm: regular Heart sounds: normal: S1, S2 - Gastrointestinal General gastrointestinal: normal bowel sounds, soft - Integumentary bilateral +3 edema of lower extremity along with the chronic skin changes earlier erythema suggestive of developing cellulitis - Neurologic Neurologic: CNII-XII intact - Musculoskeletal Musculoskeletal: generalized weakness, strength equal bilaterally - Psychiatric Psychiatric: A&O x's 3, appropriate affect, intact judgment & insight - Labs CBC & Chem 7: 01/14/24 03:34 01/14/24 03:34 Labs: Abnormal Lab Results - Last 24 Hours (Table) 01/13/24 01/13/24 01/14/24 Range/Units 16:19 20:40 03:34 Hgb 10.4 L (13.0-17.0) g/dL Hct 36.7 L (39.6-50.0) % MCH 22.8 L (27.0-32.0) pg MCHC 28.3 L (32.0-37.0) g/dL RDW 25.9 H (11.5-14.5) % Monocytes # 1.57 H (0.20-1.00) X 10*3/uL Hypochromasia (manual) 2+ A Anisocytosis (manual) 2+ A Microcytosis (manual) 2+ A Chloride (96-109) mmol/L Carbon Dioxide (21.6-31.8) mmol/L BUN (9.0-27.0) mg/dL BUN/Creatinine Ratio (12.00-20.00) Ratio Glucose (70-110) mg/dL POC Glucose (mg/dL) 118 H 267 H (70-110) mg/dL Total Bilirubin (0.3-1.2) mg/dL Total Protein (6.2-8.2) g/dL Albumin (3.8-4.9) g/dL Albumin/Globulin Ratio (1.60-3.17) Ratio 01/14/24 01/14/24 01/14/24 Range/Units 03:34 05:38 12:12 Hgb (13.0-17.0) g/dL Hct (39.6-50.0) % MCH (27.0-32.0) pg MCHC (32.0-37.0) g/dL RDW (11.5-14.5) % Monocytes # (0.20-1.00) X 10*3/uL Hypochromasia (manual) Anisocytosis (manual) Microcytosis (manual) Chloride 88 L (96-109) mmol/L Carbon Dioxide 38.9 H (21.6-31.8) mmol/L BUN 37.4 H (9.0-27.0) mg/dL BUN/Creatinine Ratio 41.56 H (12.00-20.00) Ratio Glucose 187 H (70-110) mg/dL POC Glucose (mg/dL) 294 H 168 H (70-110) mg/dL Total Bilirubin 0.2 L (0.3-1.2) mg/dL Total Protein 5.6 L (6.2-8.2) g/dL Albumin 3.2 L (3.8-4.9) g/dL Albumin/Globulin Ratio 1.33 L (1.60-3.17) Ratio Assessment and Plan Assessment: acute on chronic hypoxic history failure improved patient on 3 L nasal cannula sats are low but stable and back to baseline, transient desaturation noted mars jaramillo this morning we'll obtain a chest x-ray patient being Constipated nasal cannula right middle lobe masslike consolidation with air bronchogram differential diagnosis pneumonia versus postobstructive pneumonia, continue antibiotics oncology following awaiting records from [facility] right parahilar mass 5 x 3.4 cm in size likely neoplasm, however as per patient diagnosed as a cancer and [facility] about a year ago, he had a bronchoscopy and biopsy, recommended for radiation and chemotherapy but patient did not follow through,will obtain path report computed tomography scan reports and consult oncology, notes noted and appreciated patient requested care to be performed over here in [place] 78 Severe degree of neck pain and back pain with shooting pain sensation, spine surgery has been consulted Acute on chronic hypoxic respiratory failure due to baseline COPD congestive heart failure with acute exacerbation acute COPD exacerbation, patient is being monitored off of steroids on antibiotics as as well as bronchodilators congestive heart failure with acute exacerbation, on diuresis Hypotension related to above as well as diuresis, will initiate patient on low- dose midodrine UTI secondary to Klebsiella most likely, on IV Rocephin follow-up on culture and sensitivity reports type 2 diabetes mellitus on short and long-acting insulin Issues related to replacement, legal guardian is being appointed by the court system Plan: as above Time with Patient: Less than 30
--- NOTE | 2024-01-15 14:45 | P.PN ---
Subjective Progress Note Date: 01/15/24 Principal diagnosis: right middle lobe masslike consolidation with air bronchogram differential diagnosis pneumonia versus postobstructive pneumonia right parahilar mass 5 x 3.4 cm in size likely neoplasm, however aspart patient diagnosed as a cancer and Andrew Radha about a year ago, he had a bronchoscopy and biopsy, recommended for radiation and chemotherapy but patient did not follow throughwill obtain path report computed tomography scan reports and consult oncology Acute on chronic hypoxic respiratory failure due to baseline COPD congestive heart failure with acute exacerbation congestive heart failure with acute exacerbation, on diuresis Hypotension related to above as well as diuresis, will initiate patient on low- dose midodrine UTI secondary to Klebsiella most likely, on IV Rocephin follow-up on culture and sensitivity reports type 2 diabetes mellitus on short and long-acting insulin 11/15/2023, patient seen evaluate examined during rounds labs and medications and care plan discussed,hemodynamic status stable, oxygen saturation is 95% on 2 L nasal cannula, patient is afebrile with temperature 98.9, blood pressure is 116/58 respiratory rate is 16 heart rate 77. January 14, 2024, patient seen and examined during rounds overall no significant changes still short of breath on activity and physician, continued to have pain in the cervical region, awaiting for placement and needs she is G001/14/2024, patient seen eval examined during the rounds overall no significant changes still short of breath on activity and exertion, continued to have pain in the cervical region, awaiting for placement social services assistant following for legal guardian.social work of firing for legal guardian. Patient remains stable on 3 L nasal cannula, no chest pain or shortness of breath no cough or sputum production, labs reviewed white cell count is 9.1legal guardian. Patient remains stable on 3 L nasal cannula, no chest pain or shortness breath no cough or sputum production, labs reviewed white cell count is 9.1 creatinine stable 1.9 patient is afebrile with stable hemodynamics oxygen saturation 93%. creatinine stable 0.9 patient is afebrile with stable hemodynamics oxygen saturation 90%.. 01/12/2024, patient seen eval examined during rounds labs reviewed medications Discussed, Patient Remains on Theater Oxygen, He Remains on Broad-Spectrum Antibiotics and Breathing Treatments, continued to have pain in the neck, found out that the neurosurgeon that has been following the patient is not and staff in this hospital advised to see the neurosurgery/spinal surgery in outpatient, legal guardian is being arranged by the social services assistant.laboratory data reviewed cultures no growth, urine culture positive for Klebsiella. Patient is on IV Rocephin LIGHT sensitive to it. Patient also on continuation of home medications oncology is following January 11, 2024, patient seen evaluate examined during rounds labs reviewed medications reviewed respiratory status continue to improve, awaiting further advice from the oncology department however patient is complaining of extreme pain in the neck as well as shooting pain down in the spine, patient has seen a spine surgeon Dr. Frank will consult spine surgery awaiting further advice from them, patient however remains on 3 L oxygen saturations mid 90s hemodynamic status stable, patient remains on bronchodilators as well as IV broad-spectrum antibiotics patient is being monitored and observe off of steroids 01/10/2024, patient seen eval examined overall respiratory status is still marginal get short of breath on minimal activity and exertion, on 3 L oxygen,saturation is a 88% transientlyadvised to take deep breathing exercises incentive spirometry hemodynamic status stable blood pressure 124/63 respiratory rate is 20 heart rate 64 temperature 98, labs are not done today blood glucose is 220 01/09/2024, patient seen eval examined during rounds labs reviewed medications reviewed care plan discussed, respiratory status overall stable, patient has been found to have diverticulosis on colonoscopy no active bleeding site identified, patient has some pain in the C-spine and back which is under control with pain medications, patient remains on broad-spectrum antibiotics for postobstructive pneumonia, awaiting further recommendation from oncology. Remains afebrile, oxygen saturation is 94% on 3 L oxygen, hemodynamic status stable last set of blood pressure 95/65. Patient remains on bronchodilator and broad-spectrum IV antibiotics patient is being monitor observe off of steroids 01/08/2024, patient seen eval examined during rounds labs reviewed medications reviewed, patient remains on antigen is a cannula, oxygen saturation mid 90s,96% on 3 L, blood pressure 120/65, afebrile with temperature 90.7, chemistry today reviewed sodium is 1:30 position for BUN/creatinine is a 35/0.9 slightly up, blood glucose 97, white cell count 8.2 hemoglobin and hematocrit is 10.6/37urine culture came back positive for Klebsiellapatient is on the Rocephin, and ID service following, also has been IV steroids and bronchodilator disease following for mass is status post colonoscopy tolerated well no diverticulosis seen otherwise no significant pathology seen January 07, 2024, patient seen and examined during rounds labs reviewed medications reviewed care plan discussed, patient is back on 3 L nasal cannula denies any chest pain, patient is currently n.p.o. for endoscopy oxygen saturation 91% on 3 L nasal cannula, chest x-ray interstitial edema right lower lobe pneumonia versus atelectasi. Proceed with endoscopy as planned 01/05/2024, patient seen eval examined the rounds labs reviewed medications reviewed care plan discussed, patient is awake and alert on 3 L oxygen saturation mid 90s, remains on broad-spectrum antibiotics, patient has transient desaturation post endoscopy however subsequently improved and back to baseline.saturation is 95% hemodynamic status stable patient remains afebrile,S x-ray performed today reviewed persistent right basilar infiltrate are present 01/04/2024, patient seen and evaluated examined during rounds labs reviewed medications reviewed care plan discussed, patient remains afebrile with stable hemodynamics, oxygen saturation 92% on 3 L nasal cannula, ongoing cough congestion shortness of breath present which however stableon bronchodilator inhaled corticosteroids and broad-spectrum antibiotics patient remains on IV Solu-Medrol every 8 hourly 40 mg patient is being given midodrine as well, patient has been evaluated by medical oncology awaiting records. Patient underwent endoscopy upper however postoperatively developed desaturations colonoscopy was canceled 68-year-old male with extensive history of smoking and nicotine use chronic hypoxic respiratory failure uses 2-1/2 L oxygen at home, admitted into the hosp ital with generalized weakness with history of intermittent fall patient has extensive swelling of the lower extremity with chronic skin changes and early cellulitis. Patient had a chest x-ray which shows bilateral small pleural effusion more so on the right side compared left side and CHF-like finding, however computed tomography scan of the chest revealed significant finding of right hilar mass/lymphadenopathy about 5 x 3 cm in size. Patient expresses that he has been evaluated at [facility] had a biopsy done about a year ago he was recommended for chemo and radiation therapy but patient couldn't find transportation and did not follow through.he has been on direct oral anticoagulant with the last was yesterday. Due to generalized weakness patient was evaluated in primary care service also noted to be anemic advised to be admitted to hospital patient fact for scheduled for C-spine surgery which has been postponed. 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 Currently patient is on bronchodilators, IV Rocephin,labs are significant for white cells are 10.3, hemoglobin and hematocrit 08/06 MCV 76, when necessary is 31 creatinine 1.2 glucose 129urine culture positive for gram-negative rods patient has a history of Klebsiella oxytocin in the past Objective - Vital Signs Vital signs: Vital Signs Temp 98.9 F 01/15/24 06:57 Pulse 60 01/15/24 06:57 Resp 16 01/15/24 06:57 BP 116/58 01/15/24 06:57 Pulse Ox 95 01/15/24 09:14 FiO2 Intake & Output 01/14/24 01/15/24 01/15/24 18:59 06:59 18:59 Output Total 400 Balance -400 Output: Urine 400 Other: Voiding Method External Catheter # Voids 2 - Exam - Constitutional General appearance: average body habitus, cooperative, disheveled - EENT Eyes: EOMI, PERRLA ENT: normal oropharynx Ears: bilateral: normal - Neck Neck: normal ROM Carotids: bilateral: upstroke normal Thyroid: bilateral: normal size - Respiratory Respiratory: right: diminished, dullness, bilateral: rales - Cardiovascular Rhythm: regular Heart sounds: normal: S1, S2 - Gastrointestinal General gastrointestinal: normal bowel sounds, soft - Integumentary bilateral +3 edema of lower extremity along with the chronic skin changes earlier erythema suggestive of developing cellulitis - Neurologic Neurologic: CNII-XII intact - Musculoskeletal Musculoskeletal: generalized weakness, strength equal bilaterally - Psychiatric Psychiatric: A&O x's 3, appropriate affect, intact judgment & insight - Labs CBC & Chem 7: 01/14/24 03:34 01/14/24 03:34 Labs: Abnormal Lab Results - Last 24 Hours (Table) 01/14/24 01/14/24 01/15/24 Range/Units 16:42 20:26 05:37 POC Glucose (mg/dL) 156 H 244 H 139 H (70-110) mg/dL 01/15/24 Range/Units 11:38 POC Glucose (mg/dL) 156 H (70-110) mg/dL Assessment and Plan Assessment: acute on chronic hypoxic history failure improved patient on 3 L nasal cannula sats are low but stable and back to baseline, transient desaturation noted earlier this morning we'll obtain a chest x-ray patient being Constipated nasal cannula right middle lobe masslike consolidation with air bronchogram differential diagnosis pneumonia versus postobstructive pneumonia, continue antibiotics oncology following awaiting records from [facility] Andrew right parahilar mass 5 x 3.4 cm in size likely neoplasm, however as per patient diagnosed as a cancer and Andrew Garcia about a year ago, he had a bronchoscopy and biopsy, recommended for radiation and chemotherapy but patient did not follow through,will obtain path report computed tomography scan reports and consult oncology, notes noted and appreciated patient requested care to be performed over here in [place] [id number] Severe degree of neck pain and back pain with shooting pain sensation, spine surgery has been consulted Acute on chronic hypoxic respiratory failure due to baseline COPD congestive heart failure with acute exacerbation acute COPD exacerbation, patient is being monitored off of steroids on antibiotics as as well as bronchodilators congestive heart failure with acute exacerbation, on diuresis Hypotension related to above as well as diuresis, will initiate patient on low- dose midodrine UTI secondary to Klebsiella most likely, on IV Rocephin follow-up on culture and sensitivity reports type 2 diabetes mellitus on short and long-acting insulin Issues related to replacement, legal guardian is being appointed by the court system Plan: as above Time with Patient: Less than 30
--- NOTE | 2024-01-15 16:31 | P.PN ---
Subjective Progress Note Date: 01/15/24 Principal diagnosis: Reason for follow-up is urinary tract infection Patient is a 68-year-old male with a past medical history significant for diabetes mellitus hypertension CVA TIA COPD current everyday smoker presenting to the hospital for evaluation of increased weakness and difficulty breathing, patient did have elevated white count did have a positive UA concer shahana for possible drug-resistant UTI prompting this consultation. Patient also have abnormal CT of the chest with masslike consolidation apparently has been diagnosed with the lung cancer last year as per discussion with the pulmonary. On today's evaluation that is 01/15/2024,the patient remains to be afebrile, patient is on 3 L nasal cannula supplemental oxygen and denies any shortness of breath no chest pain or cough.Patient denies having any nausea or vomiting, no abdominal pain and no diarrhea has been reported, feeling better. No new labs has been repeated today Objective - Vital Signs Vital signs: Vital Signs Temp 98.9 F 01/15/24 06:57 Pulse 60 01/15/24 06:57 Resp 16 01/15/24 06:57 BP 116/58 01/15/24 06:57 Pulse Ox 95 01/15/24 09:14 FiO2 Intake & Output 01/14/24 01/15/24 01/15/24 18:59 06:59 18:59 Output Total 400 Balance -400 Output: Urine 400 Other: Voiding Method External Catheter # Voids 2 - Exam GENERAL DESCRIPTION: An elderly male lying in bed in no distress RESPIRATORY SYSTEM: Unlabored breathing , coarse breath sounds bilaterally HEART: S1 S2 regular rate and rhythm , ABDOMEN: Soft , no tenderness EXTREMITIES: Bilateral lower extremity with some swelling and superficial ulceration - Labs CBC & Chem 7: 01/14/24 03:34 01/14/24 03:34 Labs: Abnormal Lab Results - Last 24 Hours (Table) 01/14/24 01/14/24 01/15/24 Range/Units 16:42 20:26 05:37 POC Glucose (mg/dL) 156 H 244 H 139 H (70-110) mg/dL 01/15/24 Range/Units 11:38 POC Glucose (mg/dL) 156 H (70-110) mg/dL Assessment and Plan (1) Urinary tract infection Current Visit: Yes Status: Acute Code(s): N39.0 - URINARY TRACT INFECTION, SITE NOT SPECIFIED SNOMED Code(s): 00376952 (2) Pneumonia Current Visit: Yes Status: Acute Code(s): J18.9 - PNEUMONIA, UNSPECIFIED ORGANISM SNOMED Code(s): 677005883 Plan: 1patient presented to hospital with generalized weakness which is likely multifactorial patient did have some urinary symptoms positive UA concerning for symptomatic UTI with a last urine culture positive for Klebsiella that was inter mediate to Unasyn 2-patient also have abnormal CT of the chest concerning for masslike consolidation and lymphadenopathy concerning for possible malignancy, in this patient who did have a diagnosis of lung cancer last year but did not have any follow-up pulmonary and oncology following the patient 3patient urine culture grew Klebsiella that is sensitive to ceftriaxone 4-patient is afebrile and the patient white count has normalized patient has received adequate antibiotic therapy for both UTI and possible component of pneumonia, patient antibiotic were discontinued and will monitor the patient closely off antibiotic Dictation was produced using [employer] dictation software. please excuse any grammatical, word or spelling errors. Time with Patient: Less than 30
[2024-01-15 17:02] LABS: Glucose,Whole Blood 112 mg/dL (70-110)
[2024-01-15 20:45] LABS: Glucose,Whole Blood 161 mg/dL (70-110)
--- NOTE | 2024-01-15 21:44 | PN ---
PROGRESS NOTE SUBJECTIVE: This is a 68-year-old white male, hemoglobin is greatly improved. His sugars are in the mid 100s to 200s. Hemoglobin is about 10.4 currently. OBJECTIVE: CARDIOVASCULAR: S1, S2. LUNGS: Transmitted upper sounds. Decreased breath sounds x4. GI: Soft. HEMATOLOGY: Negative for Homans. VITAL SIGNS: Sat 91 on 3 L. Temp 98.1, blood pressure 149/67, pulse is 58. GENERAL: The patient is sleepy, lethargic. CARDIOVASCULAR: S1, S2. PSYCH: Poor mood and affect. Wound clinic evaluation for the legs continue current treatments. Prognosis guarded. Please see further orders only he has lung cancer, small cell. He has COPD. He has CHF diastolic, improved. He had UTI with Angelique. Continue current treatment. Prognosis guarded. MMODL / IJN: [id number] /
[2024-01-15] MEDS: HYDROcodone/APAP 5-325MG 1 EACH TAB PO SCH (22:30)
--- NOTE | 2024-01-16 02:14 | DS ---
DISCHARGE SUMMARY SUBJECTIVE: This is a 68-year-old white male. DISCHARGE MEDICATIONS: Discharge med rec, 1. Loratadine 10 mg daily. 2. DuoNeb updrafts t.i.d. long-term, never stop the breathing treatments. 3. Midodrine 10 mg a.c. t.i.d. 4. Tenormin 50 b.i.d. 5. Atorvastatin 40 mg q.h.s. 6. Aspirin 81 mg daily. 7. Gabapentin 800 mg q.i.d. 8. [place] 5/325 q.12 hours. MMODL / IJN: [id number] /
--- NOTE | 2024-01-16 02:26 | DS ---
DISCHARGE SUMMARY HOSPITAL COURSE: Emre Gaffney came to the hospital with acute on chronic anemia, requiring IV iron infusions for multiple days, which improved his hemoglobin. He was supposed to get cervical surgery, was canceled due to low hemoglobin, hemoglobin on discharge was around 10.7. He was supposed to get outpatient cervical surgery up in [place] which will have to accomplish that from the [facility]. 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 He missed chemotherapy after being hooked up with a cancer doctor in the city. He has had no followup since. He is supposed to get radiation chemo outpatient, but if he is in long-term care at the [facility], he can get treatment for his cancer from oncology, Dr. Keys for radiation chemo from the [facility]. Acute on chronic respiratory failure secondary to severe COPD, diastolic heart failure, came in with CHF. We diuresed with Zaroxolyn which helped him, he will stay on Zaroxolyn. He has COPD, he needs breathing treatments t.i.d., he wears oxygen 24 hours a day at 2 L. If he goes home from the [facility], he will need oxygen at home. He is on 3 L of oxygen, he will have to go to [facility] on that. MEDICATIONS: Please see med list. DIET: As tolerated. ACTIVITY: Ambulate as tolerated. COPD exacerbation CHF, lung cancer stage IV, he will need treatment outpatient from the [facility], which is going to be allowed because he is in long-term care apparently, hypotension was improved with midodrine. UTI secondary to Klebsiella, was treated with IV antibiotics until discharge. Type 2 diabetes mellitus, remains on current treatment. He has a legal guardian. Prognosis guarded. He need to wear his oxygen 24 hours a day, do his breathing treatments will be set up with Dr. Keys for cancer treatment for lung cancer and with neck surgery up in [place] with his neurosurgeon. Please see further orders. MMODL / IJN: [id number] /
[2024-01-16 06:31] LABS: Glucose,Whole Blood 116 mg/dL (70-110)
--- NOTE | 2024-01-16 07:17 | P.CON ---
Consult Note - . Consult date: 01/16/24 Assessment/Plan:: Podiatric Surgery Consultation Emre Borrego Chief complaint: right foot and ankle pain HPI: This is a 68-year-old male with past medical history of type 2 diabetes, CHF, COPD history of chronic back pain and current admission for weakness and mobility as well as positive UA. Patient has multiple ulcerations and excoriations to bilateral foot ankle and lower leg. He is being followed already for these. Patient states he does not have a podiatric physician at this time. He is complaining of extensive, diffuse right foot and ankle pain but states this has been present for 2 years. This is chronic and not acute. He states this all started after a back surgery. Patient states most of the time he ambulates in wheelchair. He states while in rehab he has been able to get up with use of walker for very small distances and transfers to the chair. He rates his pain as a constant 4 out of 10 to the right lower extremity. He does admit to numbness bilateral but states the right is worse than the left. Lower extremity exam: A&O x 3, NAD Vascular: Nonpalpable DP and PT pulse bilateral. Skin is thin, shiny, atrophic. CFT is less than 5 seconds to distal tip of digits. No significant varicosities appreciated. Hemosiderin deposition to anterior shins bilateral. Derm: Extensive dermatological changes. Left forefoot there are ulcerations to first, second, fourth, fifth digits with necrotic dry eschar's. Right foot dorsal first metatarsal head, dorsal second PIPJ and fourth PIPJ similar dry necrotic eschar's overlying ulcerations that are full-thickness. Anterior right abdul there is a large 5 x 7 cm dry eschar. All of these underlying ulcerations appear noninfectious at this time. No purulent drainage or malodor. No surrounding erythema. They are all stable. It does not appear he has had wound care. No dressings are in place. Nails 1 through 10 are severely elongated, thickened, dystrophic with subungual debris present. Neuro: Decreased light touch sensation to the level of the mid tibia. [place] monofilament is 0 out of 10 bilateral. No positive Tinel's is appreciated with percussion of any pedal nerves. MSK: Today patient has no pain with palpation of the right foot or ankle. No pain with palpation of the left foot or ankle. No pain with calf squeeze. Calves are soft and supple bilateral. He does have mild pain with palpation of elongated thickened nail plates 1 through 10. With detailed evaluation of his pedal digital ulcerations he does withdraw showing some signs of sensation and mild pain. Gross range of motion intact to the digits. Strength is 4 out of 5 to all pedal muscle groups crossing ankle joint. Right side is weaker than the left. No signs of tendinous defect. Assessment: 1. Type 2 diabetes mellitus with multiple pedal ulcerations 2. Right foot and ankle pain 3. Diabetic neuropathy 4. Osteopenia 5. Peripheral arterial disorder 6. Lower extremity weakness 7. Onychomycosis Plan: -End of discussion with patient today regarding all clinical findings. -X-rays of foot and ankle reviewed today. No underlying osseous significant abnormality. No acute fractures present. Severe osteopenia is appreciated likely secondary to decrease in ambulation over the last 2 years. -Discussed patient's neuropathic pain in detail. Patient has a longstanding history of chronic low back pain. Discussed his pain is likely combination of chronic low back neuropathic pain and diabetic. -Since patient's pedal ulcerations are being treated by another physician I we will refrain from any debridement today. I do recommend further evaluation of his ulcerations debridement and appropriate wound care. -Patient would benefit significantly from outpatient podiatric follow-up. -Discussed blood sugar regulation and management and the benefit this would have on his neuropathic pain. -No other podiatric recommendations at this time. [facility]
[2024-01-16 11:40] LABS: Glucose,Whole Blood 143 mg/dL (70-110)
[2024-01-16 16:46] LABS: Glucose,Whole Blood 133 mg/dL (70-110)
--- NOTE | 2024-01-16 17:50 | PN ---
PROGRESS NOTE SUBJECTIVE: Emre Gaffney, waiting for rehab placement for him, where he can get long-term treatment for small cell lung cancer back and forth from the group home. He also wants to make sure he can get his neck surgery when he is in the group home. Consult foot doctor for his toes, diabetic neuropathy, osteopenia, severe onychomycosis, lower extremity weakness. The patient would benefit with outpatient Podiatry followup. Hopefully, they would trim his toenails. We will get a vascular doctor see what the blood flow is down his legs. Waiting for group home placement or placement where he can get his next surgery as well as chemotherapy. OBJECTIVE: GENERAL: He is sitting on the side of bed. He is alert and oriented x3. CARDIOVASCULAR: S1, S2. LUNGS: Decreased breath sounds x4. HEMATOLOGIC: He has vascular type ischemia to the lower extremities sensation, some thick toenails, etc. Prognosis guarded. MMODL / IJN: [id number] /
--- NOTE | 2024-01-16 19:01 | P.GSCN ---
History of Present Illness History of present illness: 68-year-old gentleman patient has been admitted with multiple medical issues including diabetes mellitus, congestive heart failure, COPD, patient has a bilateral lower extremity multiple dry wound with a scab formation noted on the lower extremity involving the dorsal aspect of the foot and lower extremity bilateral also has some chronic pain involving the both lower extremity. Also has a history of a mass in the right flank patient had a bronchoscopy and recommended chemo and radiation but patient did not follow follow-up for this treatment Patient was seen in his room patient is very lethargic and weak Neck supple no bruit appreciated Chest had crackles bilateral Abdomen is soft nontender Femorals are 2+ bilateral PT DP not palpable Plan is discussed with Dr. Atkinson If he is a candidate will vascular workup including angiogram will follow with you Past Medical History Past Medical History: COPD, CVA/TIA, Diabetes Mellitus, Hypertension, Musculoskeletal Disorder Additional Past Medical History / Comment(s): Hx. "mini stroke after 2nd covid shot", states has been on blood thinners since TIA 2020, hx. fall last 2021 that injured back, frequent falls History of Any Multi-Drug Resistant Organisms: None Reported Past Surgical History: Hernia Repair Additional Past Surgical History / Comment(s): Excision L Facial lipoma, repair hiatal hernia, laminectomy, Past Anesthesia/Blood Transfusion Reactions: No Reported Reaction Past Psychological History: No Psychological Hx Reported Additional Psychological History / Comment(s): Pt is currently staying with his exwife and daughter. Pt states he lives in [place] but is stuck here right now because of everything going on medically Smoking Status: Current every day smoker Past Alcohol Use History: None Reported Additional Past Alcohol Use History / Comment(s): Pt states he use to drink about 20 years ago, quit smoking 09/2022, was 2ppd since teens Past Drug Use History: None Reported - Past Family History Mother Family Medical History: Cancer Additional Family Medical History / Comment(s): Mother of lung cancer. Father History Unknown: Yes Medications and Allergies Home Medications Medication Instructions Recorded Confirmed Type Aspirin [Adult Low Dose Aspirin EC] 81 mg PO DAILY 04/15/22 12/30/23 History Atorvastatin [Lipitor] 40 mg PO DAILY 04/15/22 12/30/23 History Gabapentin 800 mg PO QID 06/17/22 12/30/23 History HYDROcodone/APAP 5-325MG [[place] 1 tab PO BID 12/17/22 12/30/23 History 5-325] Budesonide [Pulmicort] 0.5 mg INHALATION RT-BID 12/30/23 12/30/23 History Furosemide [Lasix] 40 mg PO BID 12/30/23 12/30/23 History Ipratropium-Albuterol Nebulize 3 ml INHALATION RT-TID 12/30/23 12/30/23 History [Duoneb 0.5 mg-3 mg/3 ml Soln] Montelukast [Singulair] 10 mg PO DAILY 12/30/23 12/30/23 History Repaglinide [Prandin] 1 mg PO TID 12/30/23 12/30/23 History atenoloL [Tenormin] 50 mg PO BID 12/30/23 12/30/23 History Acetaminophen Tab [Tylenol] 650 mg PO Q6HR PRN tab 01/07/24 Rx Dapagliflozin Propanediol [Farxiga] 5 mg PO HS 90 Days #90 tab 01/07/24 Rx Loratadine [Claritin] 10 mg PO DAILY 90 Days #90 tab 01/07/24 Rx Midodrine [ProAmatine] 10 mg PO AC-TID 30 Days #90 tab 01/07/24 Rx Pioglitazone [Actos] 15 mg PO DIRECTED 90 Days #90 01/07/24 Rx tab metOLazone [Zaroxolyn] 2.5 mg PO DAILY 90 Days #90 tab 01/07/24 Rx Allergies Allergy/AdvReac Type Severity Reaction Status Date / Time No Known Allergies Allergy Verified 12/30/23 12:50 Surgical - Exam Vital Signs Temp Pulse Resp BP Pulse Ox 98.2 F 78 24 144/74 96 12/30/23 12:48 12/30/23 12:48 12/30/23 12:48 12/30/23 12:48 12/30/23 12:48 Results - Labs 01/14/24 03:34 01/14/24 03:34 Abnormal Lab Results - Last 24 Hours (Table) 01/15/24 01/16/24 01/16/24 Range/Units 20:43 06:30 11:39 POC Glucose (mg/dL) 161 H 116 H 143 H (70-110) mg/dL 01/16/24 Range/Units 16:44 POC Glucose (mg/dL) 133 H (70-110) mg/dL
--- NOTE | 2024-01-16 20:43 | P.PN ---
Subjective Progress Note Date: 01/16/24 Principal diagnosis: Reason for follow-up is urinary tract infection Patient is a 68-year-old male with a past medical history significant for diabetes mellitus hypertension CVA TIA COPD current everyday smoker presenting to the hospital for evaluation of increased weakness and difficulty breathing, patient did have elevated white count did have a positive UA concer shahana for possible drug-resistant UTI prompting this consultation. Patient also have abnormal CT of the chest with masslike consolidation apparently has been diagnosed with the lung cancer last year as per discussion with the pulmonary. On today's evaluation that is 01/16/2024, the patient continues to be afebrile, the patient is on 3 L nasal cannula oxygen and breathing comfortably, the Pt denies having any chest pain or cough, the patient denies having any abdominal pain no vomiting or any diarrhea has been reported by the nursing staff. No new labs were obtained today Objective - Vital Signs Vital signs: Vital Signs Temp 98.9 F 01/16/24 06:47 Pulse 56 L 01/16/24 06:47 Resp 20 01/16/24 07:52 BP 111/59 01/16/24 06:47 Pulse Ox 94 L 01/16/24 07:46 FiO2 Intake & Output 01/15/24 01/16/24 01/16/24 18:59 06:59 18:59 Output Total 1500 700 Balance -1500 -700 Weight 79 kg Output: Urine 1500 700 Other: Voiding Method External Catheter External Catheter - Exam GENERAL DESCRIPTION: An elderly male lying in bed in no distress RESPIRATORY SYSTEM: Unlabored breathing , coarse breath sounds bilaterally HEART: S1 S2 regular rate and rhythm , ABDOMEN: Soft , no tenderness EXTREMITIES: Bilateral lower extremity with some swelling and superficial ulceration - Labs CBC & Chem 7: 01/14/24 03:34 01/14/24 03:34 Labs: Abnormal Lab Results - Last 24 Hours (Table) 01/15/24 01/15/24 01/15/24 Range/Units 11:38 17:01 20:43 POC Glucose (mg/dL) 156 H 112 H 161 H (70-110) mg/dL 01/16/24 Range/Units 06:30 POC Glucose (mg/dL) 116 H (70-110) mg/dL Assessment and Plan (1) Urinary tract infection Current Visit: Yes Status: Acute Code(s): N39.0 - URINARY TRACT INFECTION, SITE NOT SPECIFIED SNOMED Code(s): 17261842 (2) Pneumonia Current Visit: Yes Status: Acute Code(s): J18.9 - PNEUMONIA, UNSPECIFIED ORGANISM SNOMED Code(s): 177183968 Plan: 1patient presented to hospital with generalized weakness which is likely multifactorial patient did have some urinary symptoms positive UA concerning for symptomatic UTI with a last urine culture positive for Klebsiella that was intermediate to Unasyn 2-patient also have abnormal CT of the chest concerning for masslike consolidation and lymphadenopathy concerning for possible malignancy, in this patient who did have a diagnosis of lung cancer last year but did not have any follow-up pulmonary and oncology following the patient 3patient urine culture grew Klebsiella that is sensitive to ceftriaxone 4-patient is afebrile and the patient white count has normalized patient has received adequate antibiotic therapy for both UTI and possible component of pneumonia 5-patient is currently being monitored closely off antibiotic therapy Dictation was produced using [employer] dictation software. please excuse any grammatical, word or spelling errors. Time with Patient: Less than 30
[2024-01-16 20:53] LABS: Glucose,Whole Blood 123 mg/dL (70-110)
--- NOTE | 2024-01-16 23:07 | P.PN ---
Subjective Patient seen and evaluated at bedside. Patient doing well. no complaints. Objective - Vital Signs Vital signs: Vital Signs Temp 98.5 F 01/16/24 22:06 Pulse 67 01/16/24 22:06 Resp 16 01/16/24 22:06 BP 106/57 01/16/24 22:06 Pulse Ox 95 01/16/24 22:06 FiO2 Intake & Output 01/16/24 01/16/24 01/17/24 06:59 18:59 06:59 Output Total 1050 130 Balance -1050 -130 Weight 79 kg Output: Urine 1050 130 Other: Voiding Method External Catheter External Catheter # Bowel Movements 1 - Exam PHYSICAL EXAM: VITAL SIGNS: Reviewed. GENERAL: no acute distress. ABDOMEN: Soft. Nondistended. Nontender. - Labs CBC & Chem 7: 01/14/24 03:34 01/14/24 03:34 Labs: Abnormal Lab Results - Last 24 Hours (Table) 01/16/24 01/16/24 01/16/24 Range/Units 06:30 11:39 16:44 POC Glucose (mg/dL) 116 H 143 H 133 H (70-110) mg/dL 01/16/24 Range/Units 20:48 POC Glucose (mg/dL) 123 H (70-110) mg/dL Assessment and Plan Assessment: ASSESSMENT: 1. Anemia. Status post EGD revealing antral gastritis. Colonoscopy with diverticulosis. No active bleeding. 2. 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
[2024-01-16 23:12] LABS: ABG Base Excess 19.6 mmol/L; ABG Oxygen Saturation 91.4 % (94-97); ABG PCO2 50 mmHg (35-45); ABG PH 7.55 (7.35-7.45); ABG PO2 61 mmHg (83-108); Allen Test Performed? Yes
[2024-01-16 23:20] LABS: ABG HCO3 44 mmol/L (21-25)
[2024-01-16] MEDS: NALOXONE 0.4 MG/ML 1 ML VIAL IV PRN (23:42)
[2024-01-17 00:01] LABS: ALT 18 U/L (4-49); AST 27 U/L (17-59); African American GFR (CKD) 80 (>60 ml/min/1.73 sqM); Alkaline Phosphatase 121 U/L (38-126); Blood Urea Nitrogen 63 mg/dL (9-20); Calcium 8.7 mg/dL (8.4-10.2); Chloride 87 mmol/L (98-107); Glucose 98 mg/dL (74-99); Non-African American GFR(CKD) 69 (>60 ml/min/1.73 sqM); Potassium 3.7 mmol/L (3.5-5.1); Sodium 134 mmol/L (137-145); Total Bilirubin 0.7 mg/dL (0.2-1.3)
[2024-01-17 00:03] LABS: Anisocytosis Moderate; HGB 11.3 gm/dL (13.0-17.5); Hypochromasia Marked; MCH 23.2 pg (25.0-35.0); Mean Platelet Volume 10.1; Microcytosis Slight; Platelet Count 365 k/uL (150-450); RBC 4.87 m/uL (4.30-5.90); RDW 21.7 % (11.5-15.5)
[2024-01-17 00:07] LABS: Anion Gap 10 mmol/L; Carbon Dioxide 37 mmol/L (22-30)
[2024-01-17 00:09] LABS: NT-Pro-B-Type Natriuretic Pept 1260 pg/mL
[2024-01-17 00:51] LABS: Glucose,Whole Blood 121 mg/dL (70-110)
[2024-01-17] MEDS: SODIUM CHLORIDE 0.9% 1,000 ML IV SCH ×2 (01:00→12:51)
--- NOTE | 2024-01-17 01:10 | CT ---
EXAM: CT Head Without Intravenous Contrast CLINICAL HISTORY: AMS TECHNIQUE: Axial computed tomography images of the head/brain without intravenous contrast. CTDI is 49.2 mGy and DLP is 1125.4 mGy-cm. This CT exam was performed using one or more of the following dose reduction techniques: automated exposure control, adjustment of the mA and/or kV according to patient size, and/or use of iterative reconstruction technique. COMPARISON: No relevant prior studies available. FINDINGS: Brain: Unremarkable. No hemorrhage. No significant white matter disease. No edema. Ventricles: Unremarkable. No ventriculomegaly. Bones/joints: Unremarkable. No acute fracture. Soft tissues: Unremarkable. Sinuses: Unremarkable as visualized. No acute sinusitis. Mastoid air cells: Unremarkable as visualized. No mastoid effusion. IMPRESSION: No evidence of acute intracranial pathology.
[2024-01-17] MEDS: HEPARIN SODIUM,PORCINE 5,000 UNIT/ML 1 ML VIAL SQ SCH (02:26)
[2024-01-17 05:14] LABS: ALT 17 U/L (4-49); AST 25 U/L (17-59); African American GFR (CKD) 78 (>60 ml/min/1.73 sqM); Albumin 3.1 g/dL (3.5-5.0); Alkaline Phosphatase 122 U/L (38-126); Anion Gap 7 mmol/L; Blood Urea Nitrogen 67 mg/dL (9-20); Calcium 8.6 mg/dL (8.4-10.2); Carbon Dioxide 38 mmol/L (22-30); Chloride 88 mmol/L (98-107); Glucose 115 mg/dL (74-99); Non-African American GFR(CKD) 67 (>60 ml/min/1.73 sqM); Potassium 3.5 mmol/L (3.5-5.1); Sodium 133 mmol/L (137-145); Total Bilirubin 0.8 mg/dL (0.2-1.3); Total Protein 6.1 g/dL (6.3-8.2)
[2024-01-17 05:44] LABS: Anisocytosis Moderate; Basophils # (A) 0.1 k/uL (0-0.2); Basophils % (A) 0 %; Eosinophils % (A) 0 %; HCT 37.9 % (39.0-53.0); HGB 11.3 gm/dL (13.0-17.5); Hypochromasia Marked; Lymphocytes # (A) 1.1 k/uL (1.0-4.8); Lymphocytes % (A) 6 %; MCHC 29.8 g/dL (31.0-37.0); MCV 80.8 fL (80.0-100.0); Mean Platelet Volume 11.2; Microcytosis Slight; Monocytes # (A) 1.3 k/uL (0-1.0); Monocytes % (A) 8 %; Neutrophils # (A) 14.9 k/uL (1.3-7.7); Neutrophils % (A) 84 %; Platelet Count 364 k/uL (150-450); RBC 4.69 m/uL (4.30-5.90); RDW 21.8 % (11.5-15.5); WBC 17.7 k/uL (3.8-10.6)
[2024-01-17 06:45] LABS: Glucose,Whole Blood 131 mg/dL (70-110)
[2024-01-17] MEDS ORDERED: Potassium Replacement Protocol 1 EACH MISC MISCELLANE PRN (06:49)
[2024-01-17] MEDS: POTASSIUM CHLORIDE ER 20 MEQ TAB.ER PO SCH (07:30)
--- NOTE | 2024-01-17 08:04 | XR ---
EXAMINATION TYPE: XR chest 1V portable DATE OF EXAM: 01/17/2024 Comparison: 01/10/2024 Clinical History: 68-year-old male ICU follow-up, shortness of breath Findings: Patient is obliqued and rotated towards the right ultrasound and the cardiac mediastinal contours. Hyperinflation. Significant improving aeration at the bilateral lower lungs. Patchy opacity remains o n the right with possible trace right effusion. Impression: COPD with significantly improving aeration at the lung bases. Patchy opacity remains on the right marsha ng with a trace effusion.
[2024-01-17 11:06] LABS: Glucose,Whole Blood 178 mg/dL (70-110)
--- NOTE | 2024-01-17 11:07 | P.PN ---
Subjective Progress Note Date: 01/17/24 patient was transferred to the ICU for some possible mental status changes. Today the patient is awake. He has really no abdominal complaints. He appears to be medically stable. On exam vital signs appear stable. Abdomen is soft. It. Patient to supportive care. Objective - Vital Signs Vital signs: Vital Signs Temp 98.4 F 01/17/24 04:00 Pulse 70 01/17/24 09:03 Resp 10 L 01/17/24 09:00 BP 109/66 01/17/24 09:00 Pulse Ox 93 L 01/17/24 09:00 FiO2 40 01/17/24 04:00 Intake & Output 01/16/24 01/17/24 01/17/24 18:59 06:59 18:59 Intake Total 750 550 Output Total 130 250 0 Balance -130 500 550 Intake: IV 750 450 Sodium Chloride 0.9% 1, 750 450 000 ml @ 150 mls/hr IV . Q6H40M [facility] Rx#:[id number] Oral 100 Output: Urine 130 250 0 Other: Voiding Method External Catheter External Catheter External Catheter # Bowel Movements 2 - Labs CBC & Chem 7: 01/17/24 04:25 01/17/24 04:25 Labs: Abnormal Lab Results - Last 24 Hours (Table) 01/16/24 01/16/24 01/16/24 Range/Units 11:39 16:44 20:48 WBC (3.8-10.6) k/uL Hgb (13.0-17.5) gm/dL Hct (39.0-53.0) % MCH (25.0-35.0) pg MCHC (31.0-37.0) g/dL RDW (11.5-15.5) % Neutrophils # (1.3-7.7) k/uL Monocytes # (0-1.0) k/uL D-Dimer (<0.60) mg/L FEU ABG pH (7.35-7.45) ABG pCO2 (35-45) mmHg ABG pO2 (83-108) mmHg ABG HCO3 (21-25) mmol/L ABG O2 Saturation (94-97) % Sodium (137-145) mmol/L Chloride (98-107) mmol/L Carbon Dioxide (22-30) mmol/L BUN (9-20) mg/dL Glucose (74-99) mg/dL POC Glucose (mg/dL) 143 H 133 H 123 H (70-110) mg/dL Total Protein (6.3-8.2) g/dL Albumin (3.5-5.0) g/dL 01/16/24 01/16/24 01/16/24 Range/Units 23:12 23:12 23:12 WBC 16.0 H (3.8-10.6) k/uL Hgb 11.3 L (13.0-17.5) gm/dL Hct (39.0-53.0) % MCH 23.2 L (25.0-35.0) pg MCHC 29.0 L (31.0-37.0) g/dL RDW 21.7 H (11.5-15.5) % Neutrophils # (1.3-7.7) k/uL Monocytes # (0-1.0) k/uL D-Dimer 1.48 H (<0.60) mg/L FEU ABG pH (7.35-7.45) ABG pCO2 (35-45) mmHg ABG pO2 (83-108) mmHg ABG HCO3 (21-25) mmol/L ABG O2 Saturation (94-97) % Sodium 134 L (137-145) mmol/L Chloride 87 L (98-107) mmol/L Carbon Dioxide 37 H (22-30) mmol/L BUN 63 H (9-20) mg/dL Glucose (74-99) mg/dL POC Glucose (mg/dL) (70-110) mg/dL Total Protein 6.0 L (6.3-8.2) g/dL Albumin 3.0 L (3.5-5.0) g/dL 01/16/24 01/17/24 01/17/24 Range/Units 23:15 00:50 04:25 WBC 17.7 H (3.8-10.6) k/uL Hgb 11.3 L (13.0-17.5) gm/dL Hct 37.9 L (39.0-53.0) % MCH 24.0 L (25.0-35.0) pg MCHC 29.8 L (31.0-37.0) g/dL RDW 21.8 H (11.5-15.5) % Neutrophils # 14.9 H (1.3-7.7) k/uL Monocytes # 1.3 H (0-1.0) k/uL D-Dimer (<0.60) mg/L FEU ABG pH 7.55 H (7.35-7.45) ABG pCO2 50 H (35-45) mmHg ABG pO2 61 L (83-108) mmHg ABG HCO3 44 H* (21-25) mmol/L ABG O2 Saturation 91.4 L (94-97) % Sodium (137-145) mmol/L Chloride (98-107) mmol/L Carbon Dioxide (22-30) mmol/L BUN (9-20) mg/dL Glucose (74-99) mg/dL POC Glucose (mg/dL) 121 H (70-110) mg/dL Total Protein (6.3-8.2) g/dL Albumin (3.5-5.0) g/dL 01/17/24 01/17/24 01/17/24 Range/Units 04:25 06:44 11:04 WBC (3.8-10.6) k/uL Hgb (13.0-17.5) gm/dL Hct (39.0-53.0) % MCH (25.0-35.0) pg MCHC (31.0-37.0) g/dL RDW (11.5-15.5) % Neutrophils # (1.3-7.7) k/uL Monocytes # (0-1.0) k/uL D-Dimer (<0.60) mg/L FEU ABG pH (7.35-7.45) ABG pCO2 (35-45) mmHg ABG pO2 (83-108) mmHg ABG HCO3 (21-25) mmol/L ABG O2 Saturation (94-97) % Sodium 133 L (137-145) mmol/L Chloride 88 L (98-107) mmol/L Carbon Dioxide 38 H (22-30) mmol/L BUN 67 H (9-20) mg/dL Glucose 115 H (74-99) mg/dL POC Glucose (mg/dL) 131 H 178 H (70-110) mg/dL Total Protein 6.1 L (6.3-8.2) g/dL Albumin 3.1 L (3.5-5.0) g/dL
--- NOTE | 2024-01-17 12:14 | P.CNPUL ---
History of Present Illness Consult date: 01/17/24 Requesting physician: Jeremy Atkinson Reason for consult: COPD, lung mass Chief complaint: Shortness of breath History of present illness: This is a 68-year-old white male with history of multiple medical problems including chronic congestive heart failure, type 2 diabetes, dyslipidemia, previous CVA, advanced stage non-small cell lung cancer, patient apparently had a history of a right hilar mass with adenopathy and mediastinal adenopathy and apparently had bronchoscopy and biopsy at outside institution and he was diagnosed as having lung cancer. The patient himself is a very poor historian, most of the information was actually obtained from the chart. According to the notes from his deaf/hard of hearing specialist, patient had his diagnosis established at [facility] and his biopsy was done about a year ago patient is advised to have chemo and radiation therapy but the patient could not find transportation and he never followed up for treatment regarding his lung cancer. On 12/29 patient was a dmitted to this hospital and has been here since then. Admitted with anemia, acute on chronic congestive heart failure with preserved ejection fraction moderate size right-sided pleural effusion right middle lobe mass/consolidation and history of multiple comorbidities. Since then the patient was seen by many consultants including cardiology, pulmonary, infectious disease, general surgery, vascular surgery, apparently last night the patient was confused, obtunded, I was made aware of this patient, and I recommended evaluation in the ICU. In the meantime I ordered a CT of the brain to rule out CVA, and indeed he has no evidence of acute intracranial pathology. Chest x-ray showed COPD with improved aeration of the lung bases, continues to have patchy opacity in the right midlung with trace of pleural effusion. ABG yesterday before transferring to the ICU on 32% FiO2 showed a pO2 of 61 pCO2 50 pH of 7.55, patient was kept on BiPAP overnight and today this morning he is back to nasal cannula. All his labs were reviewed and they seem to be relatively unremarkable hence after evaluating the patient today in the ICU, I recommended neuroevaluation and the patient could be transferred to a regular medical floor again. I do not see the need for the patient to be in the ICU at this point. WBC count 17.7 hemoglobin is 11.3, basic metabolic profile is relatively normal except for bicarb of 38 BUN 67 creatinine 1.11 looking at the patient's chart, apparently all along this patient has been followed up by Dr. Fry and I am planning to transfer the patient out of the ICU and he could be followed up again by Dr. Fry for his pulmonary issues including his underlying COPD and underlying bronchogenic carcinoma. Review of Systems REVIEW OF SYSTEMS: CONSTITUTIONAL: Generalized weakness EYES: Negative. ENT: Negative. CARDIAC: Negative. PULMONARY: As noted HPI GI: Negative. GENITOURINARY: Negative. MUSCULOSKELETAL: Negative. SKIN: Negative. NEUROPSYCH: Intermittent episodes of confusion ENDOCRINE: Negative. HEMATOLOGIC: Negative. Past Medical History Past Medical History: COPD, CVA/TIA, Diabetes Mellitus, Hypertension, Musculoskeletal Disorder Additional Past Medical History / Comment(s): Hx. "mini stroke after 2nd covid shot", states has been on blood thinners since TIA 2020, hx. fall last 2021 that injured back, frequent falls History of Any Multi-Drug Resistant Organisms: None Reported Past Surgical History: Hernia Repair Additional Past Surgical History / Comment(s): Excision L Facial lipoma, repair hiatal hernia, laminectomy, Past Anesthesia/Blood Transfusion Reactions: No Reported Reaction Past Psychological History: No Psychological Hx Reported Additional Psychological History / Comment(s): Pt is currently staying with his exwife and daughter. Pt states he lives in [place] but is stuck here right now because of everything going on medically Smoking Status: Current every day smoker Past Alcohol Use History: None Reported Additional Past Alcohol Use History / Comment(s): Pt states he use to drink about 20 years ago, quit smoking 09/2022, was 2ppd since teens Past Drug Use History: None Reported - Past Family History Mother Family Medical History: Cancer Additional Family Medical History / Comment(s): Mother of lung cancer. Father History Unknown: Yes Medications and Allergies Home Medications Medication Instructions Recorded Confirmed Type Aspirin [Adult Low Dose Aspirin EC] 81 mg PO DAILY 04/15/22 12/30/23 History Atorvastatin [Lipitor] 40 mg PO DAILY 04/15/22 12/30/23 History Gabapentin 800 mg PO QID 06/17/22 12/30/23 History HYDROcodone/APAP 5-325MG [[place] 1 tab PO BID 12/17/22 12/30/23 History 5-325] Budesonide [Pulmicort] 0.5 mg INHALATION RT-BID 12/30/23 12/30/23 History Furosemide [Lasix] 40 mg PO BID 12/30/23 12/30/23 History Ipratropium-Albuterol Nebulize 3 ml INHALATION RT-TID 12/30/23 12/30/23 History [Duoneb 0.5 mg-3 mg/3 ml Soln] Montelukast [Singulair] 10 mg PO DAILY 12/30/23 12/30/23 History Repaglinide [Prandin] 1 mg PO TID 12/30/23 12/30/23 History atenoloL [Tenormin] 50 mg PO BID 12/30/23 12/30/23 History Acetaminophen Tab [Tylenol] 650 mg PO Q6HR PRN tab 01/07/24 Rx Dapagliflozin Propanediol [Farxiga] 5 mg PO HS 90 Days #90 tab 01/07/24 Rx Loratadine [Claritin] 10 mg PO DAILY 90 Days #90 tab 01/07/24 Rx Midodrine [ProAmatine] 10 mg PO AC-TID 30 Days #90 tab 01/07/24 Rx Pioglitazone [Actos] 15 mg PO DIRECTED 90 Days #90 01/07/24 Rx tab metOLazone [Zaroxolyn] 2.5 mg PO DAILY 90 Days #90 tab 01/07/24 Rx Allergies Allergy/AdvReac Type Severity Reaction Status Date / Time No Known Allergies Allergy Verified 12/30/23 12:50 Physical Exam Vitals: Vital Signs Temp Pulse Pulse Resp BP BP Pulse Ox 01/17/24 09:03 70 01/17/24 09:00 66 10 L 109/66 93 L 01/17/24 08:50 70 01/17/24 08:30 69 23 92 L 01/17/24 08:00 72 21 105/64 93 L 01/17/24 07:30 70 20 108/62 01/17/24 07:00 72 13 87/73 01/17/24 06:30 71 22 102/75 93 L 01/17/24 06:00 74 20 113/61 98 01/17/24 05:30 74 21 107/60 98 01/17/24 05:00 73 21 124/66 99 01/17/24 04:30 73 17 99/62 99 01/17/24 04:00 98.4 F 72 20 105/60 98 05/12/24 03:30 72 20 113/60 98 01/17/24 03:00 73 17 107/61 99 01/17/24 02:30 69 6 L 109/57 99 01/17/24 02:00 67 29 H 110/58 91 L 01/17/24 01:30 65 20 117/66 94 L 01/17/24 01:00 65 23 121/58 90 L 01/16/24 23:57 01/16/24 23:42 18 01/16/24 22:06 98.5 F 67 16 106/57 95 01/16/24 20:08 99.7 F H 66 19 117/64 95 01/16/24 20:00 20 01/16/24 13:44 98.6 F 67 18 107/55 90 L FiO2 01/17/24 09:03 01/17/24 09:00 01/17/24 08:50 01/17/24 08:30 01/17/24 08:00 01/17/24 07:30 01/17/24 07:00 01/17/24 06:30 01/17/24 06:00 01/17/24 05:30 01/17/24 05:00 01/17/24 04:30 01/17/24 04:00 40 01/17/24 03:30 01/17/24 03:00 01/17/24 02:30 01/17/24 02:00 40 01/17/24 01:30 01/17/24 01:00 01/16/24 23:57 40 01/16/24 23:42 01/16/24 22:06 01/16/24 20:08 01/16/24 20:00 01/16/24 13:44 Intake and Output 01/16/24 01/17/24 01/17/24 22:59 06:59 14:59 Intake Total 750 550 Output Total 250 100 Balance 500 450 Intake: IV 750 450 Sodium Chloride 0.9% 1, 750 450 000 ml @ 150 mls/hr IV . [id number] [facility] Rx#:[id number] Oral 100 Output: Urine 250 100 Other: Voiding Method External Catheter External Catheter External Catheter # Bowel Movements 2 General: Reveals 68-year-old white male, generally weak, not in distress, alert and oriented x 3 Skin: Skin is warm and dry and no rashes or lesions are noted. Eye: Pupils are equal, round and reactive to light, extra-ocular movements are intact; there is normal conjunctiva bilaterally. Ears, nose, mouth and throat: There are moist mucous membranes and no oral lesions. Neck: The neck is supple, there is no tenderness or JVD. Cardiovascular: There is a regular rate and rhythm. No murmur, rub or gallop is appreciated. Respiratory: Diminished breath sound bilaterally no crackles rhonchi or wheezes Gastrointestinal: Soft, non-distended, non-tender abdomen without masses or organomegaly noted. There is no rebound or guarding present. Bowel sounds are unremarkable. Back: There is no tenderness to palpation in the midline. There is no obvious deformity. Musculoskeletal: Normal ROM, no tenderness, There is no pedal edema. There is no calf tenderness or swelling. No cords were appreciated. Neurological: Alert oriented x 3 no gross focal neurologic deficit Psychiatric: Cooperative, appropriate mood & affect, normal judgment. Results - Laboratory Findings CBC and BMP: 01/17/24 04:25 01/17/24 04:25 ABG ABG pH 7.55 (7.35-7.45) H 01/16/24 23:15 ABG pCO2 50 mmHg (35-45) H 01/16/24 23:15 ABG pO2 61 mmHg (83-108) L 01/16/24 23:15 ABG O2 Saturation 91.4 % (94-97) L 01/16/24 23:15 PT/INR, D-dimer PT 13.2 sec (10.0-12.5) H 12/30/23 13:35 INR 1.2 (<1.2) H 12/30/23 13:35 D-Dimer 1.48 mg/L FEU (<0.60) H 01/16/24 23:12 Abnormal lab findings: Abnormal Labs 12/30/23 12/30/23 12/30/23 13:13 13:19 13:35 WBC 11.9 H RBC Hgb 10.7 L Hct 38.1 L MCV 74.4 L MCH 20.9 L MCHC 28.1 L RDW 20.8 H Immature Gran # Neutrophils # 9.4 H Lymphocytes # Monocytes # Eosinophils # Hypochromasia (manual) Anisocytosis (manual) Microcytosis (manual) PT INR D-Dimer ABG pH ABG pCO2 ABG pO2 ABG HCO3 ABG O2 Saturation Sodium Chloride Carbon Dioxide Anion Gap BUN BUN/Creatinine Ratio Glucose POC Glucose (mg/dL) 136 H Calcium Iron % Saturation Total Bilirubin AST ALT Total Protein Albumin Albumin/Globulin Ratio Procalcitonin Urine Protein 1+ H Ur Leukocyte Esterase Moderate H Urine WBC 13 H Urine Bacteria Moderate H Hyaline Casts 4 H Urine Mucus Occasional H 12/30/23 12/30/23 12/30/23 13:35 14:45 22:31 WBC RBC Hgb Hct MCV MCH MCHC RDW Immature Gran # Neutrophils # Lymphocytes # Monocytes # Eosinophils # Hypochromasia (manual) Anisocytosis (manual) Microcytosis (manual) PT 13.2 H INR 1.2 H D-Dimer ABG pH ABG pCO2 ABG pO2 ABG HCO3 ABG O2 Saturation Sodium Chloride Carbon Dioxide Anion Gap BUN 27 H BUN/Creatinine Ratio Glucose 109 H POC Glucose (mg/dL) 185 H Calcium Iron % Saturation Total Bilirubin AST ALT Total Protein Albumin 3.3 L Albumin/Globulin Ratio Procalcitonin Urine Protein Ur Leukocyte Esterase Urine WBC Urine Bacteria Hyaline Casts Urine Mucus 12/31/23 12/31/23 12/31/23 06:12 06:12 06:12 WBC 10.93 H RBC 4.16 L Hgb 8.4 L Hct 31.3 L MCV 75.2 L MCH 20.2 L MCHC 26.8 L RDW 21.6 H Immature Gran # 0.06 H Neutrophils # 8.60 H Lymphocytes # Monocytes # 1.22 H Eosinophils # 0.03 L Hypochromasia (manual) Anisocytosis (manual) Microcytosis (manual) PT INR D-Dimer ABG pH ABG pCO2 ABG pO2 ABG HCO3 ABG O2 Saturation Sodium Chloride Carbon Dioxide Anion Gap BUN 29.8 H BUN/Creatinine Ratio 27.09 H Glucose 187 H POC Glucose (mg/dL) Calcium 8.4 L Iron % Saturation Total Bilirubin <0.2 L AST 7 L ALT 5 L Total Protein 5.9 L Albumin 3.1 L Albumin/Globulin Ratio 1.11 L Procalcitonin 0.10 H Urine Protein Ur Leukocyte Esterase Urine WBC Urine Bacteria Hyaline Casts Urine Mucus 12/31/23 12/31/23 12/31/23 06:42 12:04 16:31 WBC RBC Hgb Hct MCV MCH MCHC RDW Immature Gran # Neutrophils # Lymphocytes # Monocytes # Eosinophils # Hypochromasia (manual) Anisocytosis (manual) Microcytosis (manual) PT INR D-Dimer ABG pH ABG pCO2 ABG pO2 ABG HCO3 ABG O2 Saturation Sodium Chloride Carbon Dioxide Anion Gap BUN BUN/Creatinine Ratio Glucose POC Glucose (mg/dL) 201 H 174 H 224 H Calcium Iron % Saturation Total Bilirubin AST ALT Total Protein Albumin Albumin/Globulin Ratio Procalcitonin Urine Protein Ur Leukocyte Esterase Urine WBC Urine Bacteria Hyaline Casts Urine Mucus 12/31/23 01/01/24 01/01/24 20:36 05:41 06:58 WBC 10.32 H RBC 3.97 L Hgb 8.1 L Hct 30.5 L MCV 76.8 L MCH 20.4 L MCHC 26.6 L RDW 21.5 H Immature Gran # Neutrophils # Lymphocytes # Monocytes # 1.26 H Eosinophils # Hypochromasia (manual) Anisocytosis (manual) Microcytosis (manual) PT INR D-Dimer ABG pH ABG pCO2 ABG pO2 ABG HCO3 ABG O2 Saturation Sodium Chloride Carbon Dioxide Anion Gap BUN BUN/Creatinine Ratio Glucose POC Glucose (mg/dL) 162 H 160 H Calcium Iron % Saturation Total Bilirubin AST ALT Total Protein Albumin Albumin/Globulin Ratio Procalcitonin Urine Protein Ur Leukocyte Esterase Urine WBC Urine Bacteria Hyaline Casts Urine Mucus 01/01/24 01/01/24 01/01/24 06:58 09:50 11:33 WBC RBC Hgb Hct MCV MCH MCHC RDW Immature Gran # Neutrophils # Lymphocytes # Monocytes # Eosinophils # Hypochromasia (manual) Anisocytosis (manual) Microcytosis (manual) PT INR D-Dimer ABG pH ABG pCO2 ABG pO2 ABG HCO3 ABG O2 Saturation Sodium Chloride Carbon Dioxide Anion Gap BUN 31.5 H BUN/Creatinine Ratio 26.25 H Glucose 129 H POC Glucose (mg/dL) 161 H Calcium 8.5 L Iron 30 L % Saturation 9.32 L Total Bilirubin <0.2 L AST 11 L ALT <5 L Total Protein 6.1 L Albumin 3.0 L Albumin/Globulin Ratio 0.97 L Procalcitonin Urine Protein Ur Leukocyte Esterase Urine WBC Urine Bacteria Hyaline Casts Urine Mucus 01/01/24 01/01/24 01/02/24 16:48 20:21 05:59 WBC RBC Hgb Hct MCV MCH MCHC RDW Immature Gran # Neutrophils # Lymphocytes # Monocytes # Eosinophils # Hypochromasia (manual) Anisocytosis (manual) Microcytosis (manual) PT INR D-Dimer ABG pH ABG pCO2 ABG pO2 ABG HCO3 ABG O2 Saturation Sodium Chloride Carbon Dioxide Anion Gap BUN BUN/Creatinine Ratio Glucose POC Glucose (mg/dL) 170 H 210 H 121 H Calcium Iron % Saturation Total Bilirubin AST ALT Total Protein Albumin Albumin/Globulin Ratio Procalcitonin Urine Protein Ur Leukocyte Esterase Urine WBC Urine Bacteria Hyaline Casts Urine Mucus 01/02/24 01/02/24 01/02/24 11:20 16:26 21:51 WBC RBC Hgb Hct MCV MCH MCHC RDW Immature Gran # Neutrophils # Lymphocytes # Monocytes # Eosinophils # Hypochromasia (manual) Anisocytosis (manual) Microcytosis (manual) PT INR D-Dimer ABG pH ABG pCO2 ABG pO2 ABG HCO3 ABG O2 Saturation Sodium Chloride Carbon Dioxide Anion Gap BUN BUN/Creatinine Ratio Glucose POC Glucose (mg/dL) 169 H 132 H 298 H Calcium Iron % Saturation Total Bilirubin AST ALT Total Protein Albumin Albumin/Globulin Ratio Procalcitonin Urine Protein Ur Leukocyte Esterase Urine WBC Urine Bacteria Hyaline Casts Urine Mucus 01/03/24 01/03/24 01/03/24 04:57 04:57 05:52 WBC RBC 3.90 L Hgb 8.3 L Hct 30.2 L MCV 77.4 L MCH 21.3 L MCHC 27.5 L RDW 22.6 H Immature Gran # Neutrophils # Lymphocytes # 0.39 L Monocytes # 0.13 L Eosinophils # 0.01 L Hypochromasia (manual) 2+ A Anisocytosis (manual) 2+ A Microcytosis (manual) 2+ A PT INR D-Dimer ABG pH ABG pCO2 ABG pO2 ABG HCO3 ABG O2 Saturation Sodium Chloride Carbon Dioxide Anion Gap BUN BUN/Creatinine Ratio 29.78 H Glucose 238 H POC Glucose (mg/dL) 263 H Calcium 8.5 L Iron % Saturation Total Bilirubin <0.2 L AST 9 L ALT 5 L Total Protein 5.9 L Albumin 3.0 L Albumin/Globulin Ratio 1.03 L Procalcitonin Urine Protein Ur Leukocyte Esterase Urine WBC Urine Bacteria Hyaline Casts Urine Mucus 01/03/24 01/03/24 01/03/24 12:03 16:11 20:26 WBC RBC Hgb Hct MCV MCH MCHC RDW Immature Gran # Neutrophils # Lymphocytes # Monocytes # Eosinophils # Hypochromasia (manual) Anisocytosis (manual) Microcytosis (manual) PT INR D-Dimer ABG pH ABG pCO2 ABG pO2 ABG HCO3 ABG O2 Saturation Sodium Chloride Carbon Dioxide Anion Gap BUN BUN/Creatinine Ratio Glucose POC Glucose (mg/dL) 289 H 334 H 224 H Calcium Iron % Saturation Total Bilirubin AST ALT Total Protein Albumin Albumin/Globulin Ratio Procalcitonin Urine Protein Ur Leukocyte Esterase Urine WBC Urine Bacteria Hyaline Casts Urine Mucus 01/04/24 01/04/24 01/04/24 04:44 04:44 06:07 WBC RBC 4.22 L Hgb 8.8 L Hct 32.2 L MCV 76.3 L MCH 20.9 L MCHC 27.3 L RDW 23.7 H Immature Gran # 0.05 H Neutrophils # Lymphocytes # 0.59 L Monocytes # Eosinophils # 0 L Hypochromasia (manual) 2+ A Anisocytosis (manual) 2+ A Microcytosis (manual) PT INR D-Dimer ABG pH ABG pCO2 ABG pO2 ABG HCO3 ABG O2 Saturation Sodium Chloride 95 L Carbon Dioxide Anion Gap BUN BUN/Creatinine Ratio 35.43 H Glucose 198 H POC Glucose (mg/dL) 231 H Calcium Iron % Saturation Total Bilirubin <0.2 L AST 11 L ALT 6 L Total Protein Albumin 3.2 L Albumin/Globulin Ratio 1.03 L Procalcitonin Urine Protein Ur Leukocyte Esterase Urine WBC Urine Bacteria Hyaline Casts Urine Mucus 01/04/24 01/04/24 01/04/24 11:46 16:33 20:14 WBC RBC Hgb Hct MCV MCH MCHC RDW Immature Gran # Neutrophils # Lymphocytes # Monocytes # Eosinophils # Hypochromasia (manual) Anisocytosis (manual) Microcytosis (manual) PT INR D-Dimer ABG pH ABG pCO2 ABG pO2 ABG HCO3 ABG O2 Saturation Sodium Chloride Carbon Dioxide Anion Gap BUN BUN/Creatinine Ratio Glucose POC Glucose (mg/dL) 200 H 225 H 304 H Calcium Iron % Saturation Total Bilirubin AST ALT Total Protein Albumin Albumin/Globulin Ratio Procalcitonin Urine Protein Ur Leukocyte Esterase Urine WBC Urine Bacteria Hyaline Casts Urine Mucus 01/05/24 01/05/24 01/05/24 04:47 04:47 06:09 WBC RBC 4.39 L Hgb 9.2 L Hct 33.2 L MCV 75.6 L MCH 21.0 L MCHC 27.7 L RDW 24.0 H Immature Gran # 0.06 H Neutrophils # Lymphocytes # 0.39 L Monocytes # Eosinophils # 0 L Hypochromasia (manual) Anisocytosis (manual) Microcytosis (manual) PT INR D-Dimer ABG pH ABG pCO2 ABG pO2 ABG HCO3 ABG O2 Saturation Sodium Chloride 94 L Carbon Dioxide 32.6 H Anion Gap BUN BUN/Creatinine Ratio 35.29 H Glucose 229 H POC Glucose (mg/dL) 255 H Calcium Iron % Saturation Total Bilirubin <0.2 L AST 9 L ALT 7 L Total Protein 5.9 L Albumin 3.1 L Albumin/Globulin Ratio 1.11 L Procalcitonin Urine Protein Ur Leukocyte Esterase Urine WBC Urine Bacteria Hyaline Casts Urine Mucus 01/05/24 01/05/24 01/05/24 11:09 16:09 20:36 WBC RBC Hgb Hct MCV MCH MCHC RDW Immature Gran # Neutrophils # Lymphocytes # Monocytes # Eosinophils # Hypochromasia (manual) Anisocytosis (manual) Microcytosis (manual) PT INR D-Dimer ABG pH ABG pCO2 ABG pO2 ABG HCO3 ABG O2 Saturation Sodium Chloride Carbon Dioxide Anion Gap BUN BUN/Creatinine Ratio Glucose POC Glucose (mg/dL) 254 H 289 H 323 H Calcium Iron % Saturation Total Bilirubin AST ALT Total Protein Albumin Albumin/Globulin Ratio Procalcitonin Urine Protein Ur Leukocyte Esterase Urine WBC Urine Bacteria Hyaline Casts Urine Mucus 01/06/24 01/06/24 01/06/24 04:39 04:39 06:28 WBC RBC Hgb 9.4 L Hct 34.4 L MCV 77.8 L MCH 21.3 L MCHC 27.3 L RDW 23.8 H Immature Gran # Neutrophils # Lymphocytes # 0.31 L Monocytes # Eosinophils # 0 L Hypochromasia (manual) Anisocytosis (manual) Microcytosis (manual) PT INR D-Dimer ABG pH ABG pCO2 ABG pO2 ABG HCO3 ABG O2 Saturation Sodium Chloride 93 L Carbon Dioxide 34.8 H Anion Gap BUN BUN/Creatinine Ratio 32.71 H Glucose 305 H POC Glucose (mg/dL) 296 H Calcium Iron % Saturation Total Bilirubin <0.2 L AST 10 L ALT Total Protein 5.9 L Albumin 3.2 L Albumin/Globulin Ratio 1.19 L Procalcitonin Urine Protein Ur Leukocyte Esterase Urine WBC Urine Bacteria Hyaline Casts Urine Mucus 01/06/24 01/06/24 01/06/24 11:38 16:54 21:14 WBC RBC Hgb Hct MCV MCH MCHC RDW Immature Gran # Neutrophils # Lymphocytes # Monocytes # Eosinophils # Hypochromasia (manual) Anisocytosis (manual) Microcytosis (manual) PT INR D-Dimer ABG pH ABG pCO2 ABG pO2 ABG HCO3 ABG O2 Saturation Sodium Chloride Carbon Dioxide Anion Gap BUN BUN/Creatinine Ratio Glucose POC Glucose (mg/dL) 293 H 291 H 358 H Calcium Iron % Saturation Total Bilirubin AST ALT Total Protein Albumin Albumin/Globulin Ratio Procalcitonin Urine Protein Ur Leukocyte Esterase Urine WBC Urine Bacteria Hyaline Casts Urine Mucus 01/07/24 01/07/24 01/07/24 05:16 05:16 06:37 WBC RBC Hgb 10.2 L Hct 36.0 L MCV 76.3 L MCH 21.6 L MCHC 28.3 L RDW 24.3 H Immature Gran # Neutrophils # Lymphocytes # 0.48 L Monocytes # Eosinophils # 0 L Hypochromasia (manual) Anisocytosis (manual) Microcytosis (manual) PT INR D-Dimer ABG pH ABG pCO2 ABG pO2 ABG HCO3 ABG O2 Saturation Sodium Chloride 93 L Carbon Dioxide 39.1 H Anion Gap BUN BUN/Creatinine Ratio 34.50 H Glucose 245 H POC Glucose (mg/dL) 258 H Calcium Iron % Saturation Total Bilirubin 0.2 L AST ALT Total Protein 5.6 L Albumin 3.1 L Albumin/Globulin Ratio 1.24 L Procalcitonin Urine Protein Ur Leukocyte Esterase Urine WBC Urine Bacteria Hyaline Casts Urine Mucus 01/07/24 01/07/24 01/07/24 12:51 16:54 21:08 WBC RBC Hgb Hct MCV MCH MCHC RDW Immature Gran # Neutrophils # Lymphocytes # Monocytes # Eosinophils # Hypochromasia (manual) Anisocytosis (manual) Microcytosis (manual) PT INR D-Dimer ABG pH ABG pCO2 ABG pO2 ABG HCO3 ABG O2 Saturation Sodium Chloride Carbon Dioxide Anion Gap BUN BUN/Creatinine Ratio Glucose POC Glucose (mg/dL) 201 H 239 H 338 H Calcium Iron % Saturation Total Bilirubin AST ALT Total Protein Albumin Albumin/Globulin Ratio Procalcitonin Urine Protein Ur Leukocyte Esterase Urine WBC Urine Bacteria Hyaline Casts Urine Mucus 01/08/24 01/08/24 01/08/24 06:01 07:24 07:24 WBC RBC Hgb 10.6 L Hct 37.4 L MCV 77.8 L MCH 22.0 L MCHC 28.3 L RDW 24.1 H Immature Gran # Neutrophils # Lymphocytes # 0.44 L Monocytes # Eosinophils # 0 L Hypochromasia (manual) Anisocytosis (manual) Microcytosis (manual) PT INR D-Dimer ABG pH ABG pCO2 ABG pO2 ABG HCO3 ABG O2 Saturation Sodium 133 L Chloride 87 L Carbon Dioxide 39.4 H Anion Gap BUN 35.7 H BUN/Creatinine Ratio 39.67 H Glucose 397 H POC Glucose (mg/dL) 397 H Calcium Iron % Saturation Total Bilirubin <0.2 L AST ALT Total Protein 5.2 L Albumin 2.9 L Albumin/Globulin Ratio 1.26 L Procalcitonin Urine Protein Ur Leukocyte Esterase Urine WBC Urine Bacteria Hyaline Casts Urine Mucus 01/08/24 01/08/24 01/08/24 12:05 16:55 21:25 WBC RBC Hgb Hct MCV MCH MCHC RDW Immature Gran # Neutrophils # Lymphocytes # Monocytes # Eosinophils # Hypochromasia (manual) Anisocytosis (manual) Microcytosis (manual) PT INR D-Dimer ABG pH ABG pCO2 ABG pO2 ABG HCO3 ABG O2 Saturation Sodium Chloride Carbon Dioxide Anion Gap BUN BUN/Creatinine Ratio Glucose POC Glucose (mg/dL) 495 H 340 H 414 H Calcium Iron % Saturation Total Bilirubin AST ALT Total Protein Albumin Albumin/Globulin Ratio Procalcitonin Urine Protein Ur Leukocyte Esterase Urine WBC Urine Bacteria Hyaline Casts Urine Mucus 01/09/24 01/09/24 01/09/24 06:02 06:22 06:22 WBC 10.22 H RBC Hgb 10.6 L Hct 37.8 L MCV 77.5 L MCH 21.7 L MCHC 28.0 L RDW 24.6 H Immature Gran # Neutrophils # 7.79 H Lymphocytes # Monocytes # 1.08 H Eosinophils # 0.03 L Hypochromasia (manual) Anisocytosis (manual) Microcytosis (manual) PT INR D-Dimer ABG pH ABG pCO2 ABG pO2 ABG HCO3 ABG O2 Saturation Sodium Chloride 91 L Carbon Dioxide 39.0 H Anion Gap BUN 38.6 H BUN/Creatinine Ratio 48.25 H Glucose 194 H POC Glucose (mg/dL) 212 H Calcium Iron % Saturation Total Bilirubin 0.2 L AST ALT Total Protein 5.3 L Albumin 3.1 L Albumin/Globulin Ratio 1.41 L Procalcitonin Urine Protein Ur Leukocyte Esterase Urine WBC Urine Bacteria Hyaline Casts Urine Mucus 01/09/24 01/09/24 01/09/24 11:34 16:34 20:28 WBC RBC Hgb Hct MCV MCH MCHC RDW Immature Gran # Neutrophils # Lymphocytes # Monocytes # Eosinophils # Hypochromasia (manual) Anisocytosis (manual) Microcytosis (manual) PT INR D-Dimer ABG pH ABG pCO2 ABG pO2 ABG HCO3 ABG O2 Saturation Sodium Chloride Carbon Dioxide Anion Gap BUN BUN/Creatinine Ratio Glucose POC Glucose (mg/dL) 325 H 300 H 340 H Calcium Iron % Saturation Total Bilirubin AST ALT Total Protein Albumin Albumin/Globulin Ratio Procalcitonin Urine Protein Ur Leukocyte Esterase Urine WBC Urine Bacteria Hyaline Casts Urine Mucus 01/10/24 01/10/24 01/10/24 06:31 11:38 16:38 WBC RBC Hgb Hct MCV MCH MCHC RDW Immature Gran # Neutrophils # Lymphocytes # Monocytes # Eosinophils # Hypochromasia (manual) Anisocytosis (manual) Microcytosis (manual) PT INR D-Dimer ABG pH ABG pCO2 ABG pO2 ABG HCO3 ABG O2 Saturation Sodium Chloride Carbon Dioxide Anion Gap BUN BUN/Creatinine Ratio Glucose POC Glucose (mg/dL) 220 H 188 H 167 H Calcium Iron % Saturation Total Bilirubin AST ALT Total Protein Albumin Albumin/Globulin Ratio Procalcitonin Urine Protein Ur Leukocyte Esterase Urine WBC Urine Bacteria Hyaline Casts Urine Mucus 01/10/24 01/11/24 01/11/24 20:27 06:15 11:21 WBC RBC Hgb Hct MCV MCH MCHC RDW Immature Gran # Neutrophils # Lymphocytes # Monocytes # Eosinophils # Hypochromasia (manual) Anisocytosis (manual) Microcytosis (manual) PT INR D-Dimer ABG pH ABG pCO2 ABG pO2 ABG HCO3 ABG O2 Saturation Sodium Chloride Carbon Dioxide Anion Gap BUN BUN/Creatinine Ratio Glucose POC Glucose (mg/dL) 233 H 223 H 250 H Calcium Iron % Saturation Total Bilirubin AST ALT Total Protein Albumin Albumin/Globulin Ratio Procalcitonin Urine Protein Ur Leukocyte Esterase Urine WBC Urine Bacteria Hyaline Casts Urine Mucus 01/11/24 01/11/24 01/12/24 16:23 20:21 04:59 WBC 11.29 H RBC Hgb 10.7 L Hct 38.4 L MCV 79.0 L MCH 22.0 L MCHC 27.9 L RDW 25.9 H Immature Gran # 0.06 H Neutrophils # 8.56 H Lymphocytes # Monocytes # 1.45 H Eosinophils # Hypochromasia (manual) Anisocytosis (manual) Microcytosis (manual) PT INR D-Dimer ABG pH ABG pCO2 ABG pO2 ABG HCO3 ABG O2 Saturation Sodium Chloride Carbon Dioxide Anion Gap BUN BUN/Creatinine Ratio Glucose POC Glucose (mg/dL) 201 H 222 H Calcium Iron % Saturation Total Bilirubin AST ALT Total Protein Albumin Albumin/Globulin Ratio Procalcitonin Urine Protein Ur Leukocyte Esterase Urine WBC Urine Bacteria Hyaline Casts Urine Mucus 01/12/24 01/12/24 01/12/24 04:59 05:52 11:27 WBC RBC Hgb Hct MCV MCH MCHC RDW Immature Gran # Neutrophils # Lymphocytes # Monocytes # Eosinophils # Hypochromasia (manual) Anisocytosis (manual) Microcytosis (manual) PT INR D-Dimer ABG pH ABG pCO2 ABG pO2 ABG HCO3 ABG O2 Saturation Sodium Chloride 89 L Carbon Dioxide 36.3 H Anion Gap 14.70 H BUN 39.4 H BUN/Creatinine Ratio 49.25 H Glucose 142 H POC Glucose (mg/dL) 165 H 174 H Calcium Iron % Saturation Total Bilirubin AST ALT Total Protein 5.5 L Albumin 3.1 L Albumin/Globulin Ratio 1.29 L Procalcitonin Urine Protein Ur Leukocyte Esterase Urine WBC Urine Bacteria Hyaline Casts Urine Mucus 01/12/24 01/12/24 01/13/24 16:59 20:53 06:00 WBC RBC Hgb Hct MCV MCH MCHC RDW Immature Gran # Neutrophils # Lymphocytes # Monocytes # Eosinophils # Hypochromasia (manual) Anisocytosis (manual) Microcytosis (manual) PT INR D-Dimer ABG pH ABG pCO2 ABG pO2 ABG HCO3 ABG O2 Saturation Sodium Chloride Carbon Dioxide Anion Gap BUN BUN/Creatinine Ratio Glucose POC Glucose (mg/dL) 247 H 237 H 141 H Calcium Iron % Saturation Total Bilirubin AST ALT Total Protein Albumin Albumin/Globulin Ratio Procalcitonin Urine Protein Ur Leukocyte Esterase Urine WBC Urine Bacteria Hyaline Casts Urine Mucus 01/13/24 01/13/24 01/13/24 11:43 16:19 20:40 WBC RBC Hgb Hct MCV MCH MCHC RDW Immature Gran # Neutrophils # Lymphocytes # Monocytes # Eosinophils # Hypochromasia (manual) Anisocytosis (manual) Microcytosis (manual) PT INR D-Dimer ABG pH ABG pCO2 ABG pO2 ABG HCO3 ABG O2 Saturation Sodium Chloride Carbon Dioxide Anion Gap BUN BUN/Creatinine Ratio Glucose POC Glucose (mg/dL) 237 H 118 H 267 H Calcium Iron % Saturation Total Bilirubin AST ALT Total Protein Albumin Albumin/Globulin Ratio Procalcitonin Urine Protein Ur Leukocyte Esterase Urine WBC Urine Bacteria Hyaline Casts Urine Mucus 01/14/24 01/14/24 01/14/24 03:34 03:34 05:38 WBC RBC Hgb 10.4 L Hct 36.7 L MCV MCH 22.8 L MCHC 28.3 L RDW 25.9 H Immature Gran # Neutrophils # Lymphocytes # Monocytes # 1.57 H Eosinophils # Hypochromasia (manual) 2+ A Anisocytosis (manual) 2+ A Microcytosis (manual) 2+ A PT INR D-Dimer ABG pH ABG pCO2 ABG pO2 ABG HCO3 ABG O2 Saturation Sodium Chloride 88 L Carbon Dioxide 38.9 H Anion Gap BUN 37.4 H BUN/Creatinine Ratio 41.56 H Glucose 187 H POC Glucose (mg/dL) 294 H Calcium Iron % Saturation Total Bilirubin 0.2 L AST ALT Total Protein 5.6 L Albumin 3.2 L Albumin/Globulin Ratio 1.33 L Procalcitonin Urine Protein Ur Leukocyte Esterase Urine WBC Urine Bacteria Hyaline Casts Urine Mucus 01/14/24 01/14/24 01/14/24 12:12 16:42 20:26 WBC RBC Hgb Hct MCV MCH MCHC RDW Immature Gran # Neutrophils # Lymphocytes # Monocytes # Eosinophils # Hypochromasia (manual) Anisocytosis (manual) Microcytosis (manual) PT INR D-Dimer ABG pH ABG pCO2 ABG pO2 ABG HCO3 ABG O2 Saturation Sodium Chloride Carbon Dioxide Anion Gap BUN BUN/Creatinine Ratio Glucose POC Glucose (mg/dL) 168 H 156 H 244 H Calcium Iron % Saturation Total Bilirubin AST ALT Total Protein Albumin Albumin/Globulin Ratio Procalcitonin Urine Protein Ur Leukocyte Esterase Urine WBC Urine Bacteria Hyaline Casts Urine Mucus 01/15/24 01/15/24 01/15/24 05:37 11:38 17:01 WBC RBC Hgb Hct MCV MCH MCHC RDW Immature Gran # Neutrophils # Lymphocytes # Monocytes # Eosinophils # Hypochromasia (manual) Anisocytosis (manual) Microcytosis (manual) PT INR D-Dimer ABG pH ABG pCO2 ABG pO2 ABG HCO3 ABG O2 Saturation Sodium Chloride Carbon Dioxide Anion Gap BUN BUN/Creatinine Ratio Glucose POC Glucose (mg/dL) 139 H 156 H 112 H Calcium Iron % Saturation Total Bilirubin AST ALT Total Protein Albumin Albumin/Globulin Ratio Procalcitonin Urine Protein Ur Leukocyte Esterase Urine WBC Urine Bacteria Hyaline Casts Urine Mucus 01/15/24 01/16/24 01/16/24 20:43 06:30 11:39 WBC RBC Hgb Hct MCV MCH MCHC RDW Immature Gran # Neutrophils # Lymphocytes # Monocytes # Eosinophils # Hypochromasia (manual) Anisocytosis (manual) Microcytosis (manual) PT INR D-Dimer ABG pH ABG pCO2 ABG pO2 ABG HCO3 ABG O2 Saturation Sodium Chloride Carbon Dioxide Anion Gap BUN BUN/Creatinine Ratio Glucose POC Glucose (mg/dL) 161 H 116 H 143 H Calcium Iron % Saturation Total Bilirubin AST ALT Total Protein Albumin Albumin/Globulin Ratio Procalcitonin Urine Protein Ur Leukocyte Esterase Urine WBC Urine Bacteria Hyaline Casts Urine Mucus 01/16/24 01/16/24 01/16/24 16:44 20:48 23:12 WBC 16.0 H RBC Hgb 11.3 L Hct MCV MCH 23.2 L MCHC 29.0 L RDW 21.7 H Immature Gran # Neutrophils # Lymphocytes # Monocytes # Eosinophils # Hypochromasia (manual) Anisocytosis (manual) Microcytosis (manual) PT INR D-Dimer ABG pH ABG pCO2 ABG pO2 ABG HCO3 ABG O2 Saturation Sodium Chloride Carbon Dioxide Anion Gap BUN BUN/Creatinine Ratio Glucose POC Glucose (mg/dL) 133 H 123 H Calcium Iron % Saturation Total Bilirubin AST ALT Total Protein Albumin Albumin/Globulin Ratio Procalcitonin Urine Protein Ur Leukocyte Esterase Urine WBC Urine Bacteria Hyaline Casts Urine Mucus 01/16/24 01/16/24 01/16/24 23:12 23:12 23:15 WBC RBC Hgb Hct MCV MCH MCHC RDW Immature Gran # Neutrophils # Lymphocytes # Monocytes # Eosinophils # Hypochromasia (manual) Anisocytosis (manual) Microcytosis (manual) PT INR D-Dimer 1.48 H ABG pH 7.55 H ABG pCO2 50 H ABG pO2 61 L ABG HCO3 44 H* ABG O2 Saturation 91.4 L Sodium 134 L Chloride 87 L Carbon Dioxide 37 H Anion Gap BUN 63 H BUN/Creatinine Ratio Glucose POC Glucose (mg/dL) Calcium Iron % Saturation Total Bilirubin AST ALT Total Protein 6.0 L Albumin 3.0 L Albumin/Globulin Ratio Procalcitonin Urine Protein Ur Leukocyte Esterase Urine WBC Urine Bacteria Hyaline Casts Urine Mucus 01/17/24 01/17/24 01/17/24 00:50 04:25 04:25 WBC 17.7 H RBC Hgb 11.3 L Hct 37.9 L MCV MCH 24.0 L MCHC 29.8 L RDW 21.8 H Immature Gran # Neutrophils # 14.9 H Lymphocytes # Monocytes # 1.3 H Eosinophils # Hypochromasia (manual) Anisocytosis (manual) Microcytosis (manual) PT INR D-Dimer ABG pH ABG pCO2 ABG pO2 ABG HCO3 ABG O2 Saturation Sodium 133 L Chloride 88 L Carbon Dioxide 38 H Anion Gap BUN 67 H BUN/Creatinine Ratio Glucose 115 H POC Glucose (mg/dL) 121 H Calcium Iron % Saturation Total Bilirubin AST ALT Total Protein 6.1 L Albumin 3.1 L Albumin/Globulin Ratio Procalcitonin Urine Protein Ur Leukocyte Esterase Urine WBC Urine Bacteria Hyaline Casts Urine Mucus 01/17/24 01/17/24 06:44 11:04 WBC RBC Hgb Hct MCV MCH MCHC RDW Immature Gran # Neutrophils # Lymphocytes # Monocytes # Eosinophils # Hypochromasia (manual) Anisocytosis (manual) Microcytosis (manual) PT INR D-Dimer ABG pH ABG pCO2 ABG pO2 ABG HCO3 ABG O2 Saturation Sodium Chloride Carbon Dioxide Anion Gap BUN BUN/Creatinine Ratio Glucose POC Glucose (mg/dL) 131 H 178 H Calcium Iron % Saturation Total Bilirubin AST ALT Total Protein Albumin Albumin/Globulin Ratio Procalcitonin Urine Protein Ur Leukocyte Esterase Urine WBC Urine Bacteria Hyaline Casts Urine Mucus - Diagnostic Findings Chest x-ray: image reviewed (As noted in HPI, there is evidence of COPD with improved aeration of the lung bases, patchy opacity in the right midlung noted.) Assessment and Plan Assessment: Impression: Acute on chronic hypoxic respiratory failure, multifactorial History of non-small cell lung cancer diagnosed at [facility], patient apparently did not receive treatment, patient is now being followed by oncology. Postobstructive pneumonitis, on antibiotics as per infectious disease on the case. Acute metabolic encephalopathy History of congestive heart failure, as noted in the chart by different consultants patient does not have congestive heart failure based on chest x-ray today. Type 2 diabetes Acute urinary tract infection secondary to Klebsiella, on IV Rocephin Recommendation: Patient was seen and examined in the ICU, he seems to be very appropriate today, and not obtunded as described to be last night over the phone. Labs were all reviewed Chest x-ray was reviewed I plan to transfer the patient back to the floor,/medical surgical floor, Patient will be followed up by Dr. Fry as his deaf/hard of hearing specialist Recommended neurological evaluation for his intermittent episodes of confusion/metabolic encephalopathy Will sign off and see the patient as needed Time with Patient: Greater than 30
--- NOTE | 2024-01-17 12:29 | PN ---
PROGRESS NOTE Presented to the ICU as they could not wake him up last night. He was given some Narcan. Elevated D-dimer. Ordered a CTA of the chest, put him on CPAP for elevated CO2 in his ABG. Dr. Kearney was consulted. His pulse is 60-70, blood pressure 109/66, 93 sat on 3 L. Started him back on heparin subcu for elevated D-dimer. White count up to 17.7, hemoglobin is 11.3 with left shift, neutrophils 14.9, sodium 133, potassium 3.5, CO2 is 38 on his blood, BUN is 6 7, creatinine 1.11. He was in need of drink, we gave him some fluids last night through the IV. Brain CT was negative. Chest x-ray shows COPD, improved aeration of the lung bases, patchy opacity, remains in the right lung with trace effusion. Brain CT shows no evidence of intracranial pathology. Says he has anemia, status post EGD, antral gastritis, colonoscopy, diverticulosis, lung cancer. They cleared him for discharge with Protonix continuing. Cardiovascular, S1, S2. Lungs scattered wheeze. ASSESSMENT: Metabolic encephalopathy, leukocytosis, possibly infection, acute on chronic hypoxemic respiratory distress, PAD, small-cell lung cancer . 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 Ordered CTA of the chest. Dr. Matute is following for infection. Prognosis is guarded. MMODL / IJN: [id number] /
[2024-01-17 16:09] LABS: Glucose,Whole Blood 172 mg/dL (70-110)
--- NOTE | 2024-01-17 16:24 | XR ---
EXAMINATION TYPE: XR foot complete RT, XR ankle complete RT DATE OF EXAM: 01/15/2024 9:26 PM CLINICAL INDICATION:Male, 68 years old with history of pain; [facility] COMPARISON: 10/06/2019 TECHNIQUE: XR foot complete RT, XR ankle complete RT examined in the AP, oblique, and lateral project ions. FINDINGS/IMPRESSION: Diffuse osseous demineralization which is new from prior in 2019. Scattered mild to moderate multifoc al degeneration changes throughout the joints of the foot. No evidence for osseous erosion. No signif icant soft tissue swelling appreciated.
[2024-01-17 21:34] LABS: Glucose,Whole Blood 204 mg/dL (70-110)
[2024-01-17] MEDS ORDERED: HEPARIN SODIUM,PORCINE 5,000 UNIT/ML 1 ML VIAL SQ SCH (22:59)
[2024-01-18 05:40] LABS: Glucose,Whole Blood 156 mg/dL (70-110)
--- NOTE | 2024-01-18 09:10 | P.CNNES ---
History of Present Illness Consult date: 01/17/24 Requesting physician: Ang Kearney Reason for Consult: Lethargy/Confusion History of Present Illness: Patient is a 68-year-old male with history of diabetes, back surgeries, wheelchair-bound for one year, came to the hospital on 12/30/2023 with increased weakness, difficulty ambulating, bilateral lower extremity edema dyspnea. Patient also had low hemoglobin. Patient has seen multiple specialties. Neurology was consulted because patient could not be waken up yesterday. ABG was performed, and his pH was 7.55, pCO2 50, pO2 61, HCO3 44 and saturation 91.4%. Patient was started on CPAP. This morning he was more confused, but better now as per nursing statement. Patient has been wheelchair-bound for last 1 year. Patient states he lives with his ex-, but she does not want him back at this time. He has not been able to walk since his back surgeries. He states he has good bowel and bladder control. He believes his right leg is particularly worse in the last 6 months but he was not sure for how long. Patient at present states that he had some issues last night in the "almost lost me". Nurse reports that it was only that when he woke up, he was on CPAP and it was bothering him. Patient denies any focal symptoms otherwise. Patient states that he has lot of neck pain as well. He claims that he is scheduled for neck surgery on 04/28/2024 as well, but they cancel surgery because of his hemoglobin was low. Most recent blood test shows WBC 17.7 hemoglobin 11.3, platelets 364. pH is 7.55, pCO2 50, oxygen 61 and saturation 91.4. Sodium 133, potassium is normal, BUN 67, creatinine 1.11. Hepatic panel is normal. Patient's B12 is 413 on 01/01/2024, MMA 0.27, folate 8.50, TSH is normal. Hemoglobin A1c 6.5 on 09/29/2022. CT head revealed no acute intracranial pathology. I personally reviewed CT head, agree with the findings. Chest x-ray showed COPD with significantly improving aeration at the lung bases. Patchy opacity remains on the right along with a trace effusion. Vision has history of diabetes for last 5 years. He has been wheelchair-bound for last 1 year. Review of Systems Constitutional: Denies chills (Lately has been shaking a lot), Denies fever Eyes: denies blurred vision, denies diplopia, denies pain, denies loss of vision Ears: bilateral: decreased hearing, deny: ear discharge Ears, nose, mouth and throat: Denies headache, Denies sore throat, Denies vertigo Cardiovascular: Reports lightheadedness (Used to be spinning, but now lightheaded), Reports shortness of breath, Denies chest pain Respiratory: Reports wheezing, Denies cough, Denies excessive sputum Gastrointestinal: Denies abdominal pain, Denies diarrhea, Denies nausea, Denies vomiting Genitourinary: Denies incontinence (Sometimes, cannot hold too long.) Musculoskeletal: Reports gait dysfunction, Reports low back pain, Reports muscle weakness, Reports neck pain Integumentary: Reports brittle nails, Reports darkening of skin, Reports dryness, Reports foot/leg ulcers, Reports lesions, Reports sores, Reports unu sual bruising, Reports wounds Neurological: Reports as per HPI Psychiatric: Denies anxiety, Denies depression Past Medical History Past Medical History: COPD, CVA/TIA, Diabetes Mellitus, Hypertension, Musculosk eletal Disorder Additional Past Medical History / Comment(s): Hx. "mini stroke after 2nd covid shot", states has been on blood thinners since TIA 2020, hx. fall last that injured back, frequent falls History of Any Multi-Drug Resistant Organisms: None Reported Past Surgical History: Hernia Repair Additional Past Surgical History / Comment(s): Excision L Facial lipoma, repair hiatal hernia, laminectomy, Past Anesthesia/Blood Transfusion Reactions: No Reported Reaction Past Psychological History: No Psychological Hx Reported Additional Psychological History / Comment(s): Pt is currently staying with his exwife and daughter. Pt states he lives in [place] but is stuck here right now because of everything going on medically Smoking Status: Current every day smoker Past Alcohol Use History: None Reported Additional Past Alcohol Use History / Comment(s): Pt states he use to drink about 20 years ago, quit smoking 09/2022, was 2ppd since teens Past Drug Use History: None Reported - Past Family History Mother Family Medical History: Cancer Additional Family Medical History / Comment(s): Mother of lung cancer. Father History Unknown: Yes Medications and Allergies Home Medications Medication Instructions Recorded Confirmed Type Aspirin [Adult Low Dose Aspirin EC] 81 mg PO DAILY 04/15/22 12/30/23 History Atorvastatin [Lipitor] 40 mg PO DAILY 04/15/22 12/30/23 History Gabapentin 800 mg PO QID 06/17/22 12/30/23 History HYDROcodone/APAP 5-325MG [[place] 1 tab PO BID 12/17/22 12/30/23 History 5-325] Budesonide [Pulmicort] 0.5 mg INHALATION RT-BID 12/30/23 12/30/23 History Furosemide [Lasix] 40 mg PO BID 12/30/23 12/30/23 History Ipratropium-Albuterol Nebulize 3 ml INHALATION RT-TID 12/30/23 12/30/23 History [Duoneb 0.5 mg-3 mg/3 ml Soln] Montelukast [Singulair] 10 mg PO DAILY 12/30/23 12/30/23 History Repaglinide [Prandin] 1 mg PO TID 12/30/23 12/30/23 History atenoloL [Tenormin] 50 mg PO BID 12/30/23 12/30/23 History Acetaminophen Tab [Tylenol] 650 mg PO Q6HR PRN tab 01/07/24 Rx Dapagliflozin Propanediol [Farxiga] 5 mg PO HS 90 Days #90 tab 01/07/24 Rx Loratadine [Claritin] 10 mg PO DAILY 90 Days #90 tab 01/07/24 Rx Midodrine [ProAmatine] 10 mg PO AC-TID 30 Days #90 tab 01/07/24 Rx Pioglitazone [Actos] 15 mg PO DIRECTED 90 Days #90 01/07/24 Rx tab metOLazone [Zaroxolyn] 2.5 mg PO DAILY 90 Days #90 tab 01/07/24 Rx Allergies Allergy/AdvReac Type Severity Reaction Status Date / Time No Known Allergies Allergy Verified 12/30/23 12:50 Physical Examination - Vital Signs Vital Signs: Vital Signs Temp Pulse Pulse Resp BP BP Pulse Ox 01/17/24 09:03 70 01/17/24 09:00 66 10 L 109/66 93 L 01/17/24 08:50 70 01/17/24 08:30 69 23 92 L 01/17/24 08:00 72 21 105/64 93 L 01/17/24 07:30 70 20 108/62 01/17/24 07:00 72 13 87/73 01/17/24 06:30 71 22 102/75 93 L 01/17/24 06:00 74 20 113/61 98 01/17/24 05:30 74 21 107/60 98 01/17/24 05:00 73 21 124/66 99 01/17/24 04:30 73 17 99/62 99 01/17/24 04:00 98.4 F 72 20 105/60 98 01/17/24 03:30 72 20 113/60 98 01/17/24 03:00 73 17 107/61 99 01/17/24 02:30 69 6 L 109/57 99 01/17/24 02:00 67 29 H 110/58 91 L 01/17/24 01:30 65 20 117/66 94 L 01/17/24 01:00 65 23 121/58 90 L 01/16/24 23:57 01/16/24 23:42 18 01/16/24 22:06 98.5 F 67 16 106/57 95 01/16/24 20:08 99.7 F H 66 19 117/64 95 01/16/24 20:00 20 01/16/24 13:44 98.6 F 67 18 107/55 90 L FiO2 01/17/24 09:03 01/17/24 09:00 01/17/24 08:50 01/17/24 08:30 01/17/24 08:00 01/17/24 07:30 01/17/24 07:00 01/17/24 06:30 01/17/24 06:00 01/17/24 05:30 01/17/24 05:00 01/17/24 04:30 01/17/24 04:00 40 01/17/24 03:30 01/17/24 03:00 01/17/24 02:30 01/17/24 02:00 40 01/17/24 01:30 01/17/24 01:00 01/16/24 23:57 40 01/16/24 23:42 01/16/24 22:06 01/16/24 20:08 01/16/24 20:00 01/16/24 13:44 Intake and Output 01/16/24 01/17/24 01/17/24 22:59 06:59 14:59 Intake Total 750 550 Output Total 250 100 Balance 500 450 Intake: IV 750 450 Sodium Chloride 0.9% 1, 750 450 000 ml @ 150 mls/hr IV . [id number] [facility] Rx#:[id number] Oral 100 Output: Urine 250 100 Other: Voiding Method External Catheter External Catheter External Catheter # Bowel Movements 2 Patient is an elderly male, in no acute distress. He is laying comfortably in the bed, with oxygen on. Patient is alert awake oriented to time place and person. Patient states he is in [facility] in [place]. He could not tell the month although he kno ws it is 2023. He knows name of the current president. Speech and language functions are normal. Patient can name and repeat very well. No aphasia or dysarthria. Attention, concentration is slightly decreased and fund of knowledge is adequate. On cranial nerve examination, pupils are equal, round and reacting to light, visual lam are full on confrontation, with no neglect on double simultaneous stimulation. Extraocular muscles are intact with no nystagmus. Face is symmetric, tongue protrudes to the midline. Palatal elevation and sensation normal, hearing and shoulder shrug normal, facial sensation normal. On muscle strength testing, there is no pronator drift and the strength is normal in arms distally and proximally. In the lower limbs, (right/left) hip flexion 0/2, knee extension 0/3+4-, ankle dorsiflexion 4/5, toe extension 3/5- Deep tendon reflexes are symmetric (right/left) biceps 0/1, brachioradialis 0/0, knees 0/1+, plantars are flat. Sensory to touch is equal with no neglect on double simultaneous stimulation. Cerebellar function showed no ataxia for [id number] testing. Cannot perform for [id number] testing on either side. Tone and bulk of muscles normal. Some atrophy of the interosseous muscles of the hand and small muscles of the feet. Gait deferred.. On general examination, there is no carotid bruit or murmur, S1-S2 audible. Chest is clear on consultation. Abdomen is soft nontender. No organomegaly, bowel sounds present. Patient has multiple bruises on his arms. He has multiple wounds and scabs on the front of the abdul, right more than left. His skin is very dry. He has some ulcers on the top of the right fourth toe, and le ft first, second and fourth toes. Skin is very scaly, peeling off. Results - Laboratory Findings CBC and BMP: 01/17/24 04:25 01/17/24 04:25 Abnormal Lab Findings: Abnormal Labs 12/30/23 12/30/23 12/30/23 13:13 13:19 13:35 WBC 11.9 H RBC Hgb 10.7 L Hct 38.1 L MCV 74.4 L MCH 20.9 L MCHC 28.1 L RDW 20.8 H Immature Gran # Neutrophils # 9.4 H Lymphocytes # Monocytes # Eosinophils # Hypochromasia (manual) Anisocytosis (manual) Microcytosis (manual) PT INR D-Dimer ABG pH ABG pCO2 ABG pO2 ABG HCO3 ABG O2 Saturation Sodium Chloride Carbon Dioxide Anion Gap BUN BUN/Creatinine Ratio Glucose POC Glucose (mg/dL) 136 H Calcium Iron % Saturation Total Bilirubin AST ALT Total Protein Albumin Albumin/Globulin Ratio Procalcitonin Urine Protein 1+ H Ur Leukocyte Esterase Moderate H Urine WBC 13 H Urine Bacteria Moderate H Hyaline Casts 4 H Urine Mucus Occasional H 12/30/23 12/30/23 12/30/23 13:35 14:45 22:31 WBC RBC Hgb Hct MCV MCH MCHC RDW Immature Gran # Neutrophils # Lymphocytes # Monocytes # Eosinophils # Hypochromasia (manual) Anisocytosis (manual) Microcytosis (manual) PT 13.2 H INR 1.2 H D-Dimer ABG pH ABG pCO2 ABG pO2 ABG HCO3 ABG O2 Saturation Sodium Chloride Carbon Dioxide Anion Gap BUN 27 H BUN/Creatinine Ratio Glucose 109 H POC Glucose (mg/dL) 185 H Calcium Iron % Saturation Total Bilirubin AST ALT Total Protein Albumin 3.3 L Albumin/Globulin Ratio Procalcitonin Urine Protein Ur Leukocyte Esterase Urine WBC Urine Bacteria Hyaline Casts Urine Mucus 12/31/23 12/31/23 12/31/23 06:12 06:12 06:12 WBC 10.93 H RBC 4.16 L Hgb 8.4 L Hct 31.3 L MCV 75.2 L MCH 20.2 L MCHC 26.8 L RDW 21.6 H Immature Gran # 0.06 H Neutrophils # 8.60 H Lymphocytes # Monocytes # 1.22 H Eosinophils # 0.03 L Hypochromasia (manual) Anisocytosis (manual) Microcytosis (manual) PT INR D-Dimer ABG pH ABG pCO2 ABG pO2 ABG HCO3 ABG O2 Saturation Sodium Chloride Carbon Dioxide Anion Gap BUN 29.8 H BUN/Creatinine Ratio 27.09 H Glucose 187 H POC Glucose (mg/dL) Calcium 8.4 L Iron % Saturation Total Bilirubin <0.2 L AST 7 L ALT 5 L Total Protein 5.9 L Albumin 3.1 L Albumin/Globulin Ratio 1.11 L Procalcitonin 0.10 H Urine Protein Ur Leukocyte Esterase Urine WBC Urine Bacteria Hyaline Casts Urine Mucus 12/31/23 12/31/23 12/31/23 06:42 12:04 16:31 WBC RBC Hgb Hct MCV MCH MCHC RDW Immature Gran # Neutrophils # Lymphocytes # Monocytes # Eosinophils # Hypochromasia (manual) Anisocytosis (manual) Microcytosis (manual) PT INR D-Dimer ABG pH ABG pCO2 ABG pO2 ABG HCO3 ABG O2 Saturation Sodium Chloride Carbon Dioxide Anion Gap BUN BUN/Creatinine Ratio Glucose POC Glucose (mg/dL) 201 H 174 H 224 H Calcium Iron % Saturation Total Bilirubin AST ALT Total Protein Albumin Albumin/Globulin Ratio Procalcitonin Urine Protein Ur Leukocyte Esterase Urine WBC Urine Bacteria Hyaline Casts Urine Mucus 12/31/23 01/01/24 01/01/24 20:36 05:41 06:58 WBC 10.32 H RBC 3.97 L Hgb 8.1 L Hct 30.5 L MCV 76.8 L MCH 20.4 L MCHC 26.6 L RDW 21.5 H Immature Gran # Neutrophils # Lymphocytes # Monocytes # 1.26 H Eosinophils # Hypochromasia (manual) Anisocytosis (manual) Microcytosis (manual) PT INR D-Dimer ABG pH ABG pCO2 ABG pO2 ABG HCO3 ABG O2 Saturation Sodium Chloride Carbon Dioxide Anion Gap BUN BUN/Creatinine Ratio Glucose POC Glucose (mg/dL) 162 H 160 H Calcium Iron % Saturation Total Bilirubin AST ALT Total Protein Albumin Albumin/Globulin Ratio Procalcitonin Urine Protein Ur Leukocyte Esterase Urine WBC Urine Bacteria Hyaline Casts Urine Mucus 01/01/24 01/01/24 01/01/24 06:58 09:50 11:33 WBC RBC Hgb Hct MCV MCH MCHC RDW Immature Gran # Neutrophils # Lymphocytes # Monocytes # Eosinophils # Hypochromasia (manual) Anisocytosis (manual) Microcytosis (manual) PT INR D-Dimer ABG pH ABG pCO2 ABG pO2 ABG HCO3 ABG O2 Saturation Sodium Chloride Carbon Dioxide Anion Gap BUN 31.5 H BUN/Creatinine Ratio 26.25 H Glucose 129 H POC Glucose (mg/dL) 161 H Calcium 8.5 L Iron 30 L % Saturation 9.32 L Total Bilirubin <0.2 L AST 11 L ALT <5 L Total Protein 6.1 L Albumin 3.0 L Albumin/Globulin Ratio 0.97 L Procalcitonin Urine Protein Ur Leukocyte Esterase Urine WBC Urine Bacteria Hyaline Casts Urine Mucus 01/01/24 01/01/24 01/02/24 16:48 20:21 05:59 WBC RBC Hgb Hct MCV MCH MCHC RDW Immature Gran # Neutrophils # Lymphocytes # Monocytes # Eosinophils # Hypochromasia (manual) Anisocytosis (manual) Microcytosis (manual) PT INR D-Dimer ABG pH ABG pCO2 ABG pO2 ABG HCO3 ABG O2 Saturation Sodium Chloride Carbon Dioxide Anion Gap BUN BUN/Creatinine Ratio Glucose POC Glucose (mg/dL) 170 H 210 H 121 H Calcium Iron % Saturation Total Bilirubin AST ALT Total Protein Albumin Albumin/Globulin Ratio Procalcitonin Urine Protein Ur Leukocyte Esterase Urine WBC Urine Bacteria Hyaline Casts Urine Mucus 01/02/24 01/02/24 01/02/24 11:20 16:26 21:51 WBC RBC Hgb Hct MCV MCH MCHC RDW Immature Gran # Neutrophils # Lymphocytes # Monocytes # Eosinophils # Hypochromasia (manual) Anisocytosis (manual) Microcytosis (manual) PT INR D-Dimer ABG pH ABG pCO2 ABG pO2 ABG HCO3 ABG O2 Saturation Sodium Chloride Carbon Dioxide Anion Gap BUN BUN/Creatinine Ratio Glucose POC Glucose (mg/dL) 169 H 132 H 298 H Calcium Iron % Saturation Total Bilirubin AST ALT Total Protein Albumin Albumin/Globulin Ratio Procalcitonin Urine Protein Ur Leukocyte Esterase Urine WBC Urine Bacteria Hyaline Casts Urine Mucus 01/03/24 01/03/24 01/03/24 04:57 04:57 05:52 WBC RBC 3.90 L Hgb 8.3 L Hct 30.2 L MCV 77.4 L MCH 21.3 L MCHC 27.5 L RDW 22.6 H Immature Gran # Neutrophils # Lymphocytes # 0.39 L Monocytes # 0.13 L Eosinophils # 0.01 L Hypochromasia (manual) 2+ A Anisocytosis (manual) 2+ A Microcytosis (manual) 2+ A PT INR D-Dimer ABG pH ABG pCO2 ABG pO2 ABG HCO3 ABG O2 Saturation Sodium Chloride Carbon Dioxide Anion Gap BUN BUN/Creatinine Ratio 29.78 H Glucose 238 H POC Glucose (mg/dL) 263 H Calcium 8.5 L Iron % Saturation Total Bilirubin <0.2 L AST 9 L ALT 5 L Total Protein 5.9 L Albumin 3.0 L Albumin/Globulin Ratio 1.03 L Procalcitonin Urine Protein Ur Leukocyte Esterase Urine WBC Urine Bacteria Hyaline Casts Urine Mucus 01/03/24 01/03/24 01/03/24 12:03 16:11 20:26 WBC RBC Hgb Hct MCV MCH MCHC RDW Immature Gran # Neutrophils # Lymphocytes # Monocytes # Eosinophils # Hypochromasia (manual) Anisocytosis (manual) Microcytosis (manual) PT INR D-Dimer ABG pH ABG pCO2 ABG pO2 ABG HCO3 ABG O2 Saturation Sodium Chloride Carbon Dioxide Anion Gap BUN BUN/Creatinine Ratio Glucose POC Glucose (mg/dL) 289 H 334 H 224 H Calcium Iron % Saturation Total Bilirubin AST ALT Total Protein Albumin Albumin/Globulin Ratio Procalcitonin Urine Protein Ur Leukocyte Esterase Urine WBC Urine Bacteria Hyaline Casts Urine Mucus 01/04/24 01/04/24 01/04/24 04:44 04:44 06:07 WBC RBC 4.22 L Hgb 8.8 L Hct 32.2 L MCV 76.3 L MCH 20.9 L MCHC 27.3 L RDW 23.7 H Immature Gran # 0.05 H Neutrophils # Lymphocytes # 0.59 L Monocytes # Eosinophils # 0 L Hypochromasia (manual) 2+ A Anisocytosis (manual) 2+ A Microcytosis (manual) PT INR D-Dimer ABG pH ABG pCO2 ABG pO2 ABG HCO3 ABG O2 Saturation Sodium Chloride 95 L Carbon Dioxide Anion Gap BUN BUN/Creatinine Ratio 35.43 H Glucose 198 H POC Glucose (mg/dL) 231 H Calcium Iron % Saturation Total Bilirubin <0.2 L AST 11 L ALT 6 L Total Protein Albumin 3.2 L Albumin/Globulin Ratio 1.03 L Procalcitonin Urine Protein Ur Leukocyte Esterase Urine WBC Urine Bacteria Hyaline Casts Urine Mucus 01/04/24 01/04/24 01/04/24 11:46 16:33 20:14 WBC RBC Hgb Hct MCV MCH MCHC RDW Immature Gran # Neutrophils # Lymphocytes # Monocytes # Eosinophils # Hypochromasia (manual) Anisocytosis (manual) Microcytosis (manual) PT INR D-Dimer ABG pH ABG pCO2 ABG pO2 ABG HCO3 ABG O2 Saturation Sodium Chloride Carbon Dioxide Anion Gap BUN BUN/Creatinine Ratio Glucose POC Glucose (mg/dL) 200 H 225 H 304 H Calcium Iron % Saturation Total Bilirubin AST ALT Total Protein Albumin Albumin/Globulin Ratio Procalcitonin Urine Protein Ur Leukocyte Esterase Urine WBC Urine Bacteria Hyaline Casts Urine Mucus 01/05/24 01/05/24 01/05/24 04:47 04:47 06:09 WBC RBC 4.39 L Hgb 9.2 L Hct 33.2 L MCV 75.6 L MCH 21.0 L MCHC 27.7 L RDW 24.0 H Immature Gran # 0.06 H Neutrophils # Lymphocytes # 0.39 L Monocytes # Eosinophils # 0 L Hypochromasia (manual) Anisocytosis (manual) Microcytosis (manual) PT INR D-Dimer ABG pH ABG pCO2 ABG pO2 ABG HCO3 ABG O2 Saturation Sodium Chloride 94 L Carbon Dioxide 32.6 H Anion Gap BUN BUN/Creatinine Ratio 35.29 H Glucose 229 H POC Glucose (mg/dL) 255 H Calcium Iron % Saturation Total Bilirubin <0.2 L AST 9 L ALT 7 L Total Protein 5.9 L Albumin 3.1 L Albumin/Globulin Ratio 1.11 L Procalcitonin Urine Protein Ur Leukocyte Esterase Urine WBC Urine Bacteria Hyaline Casts Urine Mucus 01/05/24 01/05/24 01/05/24 11:09 16:09 20:36 WBC RBC Hgb Hct MCV MCH MCHC RDW Immature Gran # Neutrophils # Lymphocytes # Monocytes # Eosinophils # Hypochromasia (manual) Anisocytosis (manual) Microcytosis (manual) PT INR D-Dimer ABG pH ABG pCO2 ABG pO2 ABG HCO3 ABG O2 Saturation Sodium Chloride Carbon Dioxide Anion Gap BUN BUN/Creatinine Ratio Glucose POC Glucose (mg/dL) 254 H 289 H 323 H Calcium Iron % Saturation Total Bilirubin AST ALT Total Protein Albumin Albumin/Globulin Ratio Procalcitonin Urine Protein Ur Leukocyte Esterase Urine WBC Urine Bacteria Hyaline Casts Urine Mucus 01/06/24 01/06/24 01/06/24 04:39 04:39 06:28 WBC RBC Hgb 9.4 L Hct 34.4 L MCV 77.8 L MCH 21.3 L MCHC 27.3 L RDW 23.8 H Immature Gran # Neutrophils # Lymphocytes # 0.31 L Monocytes # Eosinophils # 0 L Hypochromasia (manual) Anisocytosis (manual) Microcytosis (manual) PT INR D-Dimer ABG pH ABG pCO2 ABG pO2 ABG HCO3 ABG O2 Saturation Sodium Chloride 93 L Carbon Dioxide 34.8 H Anion Gap BUN BUN/Creatinine Ratio 32.71 H Glucose 305 H POC Glucose (mg/dL) 296 H Calcium Iron % Saturation Total Bilirubin <0.2 L AST 10 L ALT Total Protein 5.9 L Albumin 3.2 L Albumin/Globulin Ratio 1.19 L Procalcitonin Urine Protein Ur Leukocyte Esterase Urine WBC Urine Bacteria Hyaline Casts Urine Mucus 01/06/24 01/06/24 01/06/24 11:38 16:54 21:14 WBC RBC Hgb Hct MCV MCH MCHC RDW Immature Gran # Neutrophils # Lymphocytes # Monocytes # Eosinophils # Hypochromasia (manual) Anisocytosis (manual) Microcytosis (manual) PT INR D-Dimer ABG pH ABG pCO2 ABG pO2 ABG HCO3 ABG O2 Saturation Sodium Chloride Carbon Dioxide Anion Gap BUN BUN/Creatinine Ratio Glucose POC Glucose (mg/dL) 293 H 291 H 358 H Calcium Iron % Saturation Total Bilirubin AST ALT Total Protein Albumin Albumin/Globulin Ratio Procalcitonin Urine Protein Ur Leukocyte Esterase Urine WBC Urine Bacteria Hyaline Casts Urine Mucus 01/07/24 01/07/24 01/07/24 05:16 05:16 06:37 WBC RBC Hgb 10.2 L Hct 36.0 L MCV 76.3 L MCH 21.6 L MCHC 28.3 L RDW 24.3 H Immature Gran # Neutrophils # Lymphocytes # 0.48 L Monocytes # Eosinophils # 0 L Hypochromasia (manual) Anisocytosis (manual) Microcytosis (manual) PT INR D-Dimer ABG pH ABG pCO2 ABG pO2 ABG HCO3 ABG O2 Saturation Sodium Chloride 93 L Carbon Dioxide 39.1 H Anion Gap BUN BUN/Creatinine Ratio 34.50 H Glucose 245 H POC Glucose (mg/dL) 258 H Calcium Iron % Saturation Total Bilirubin 0.2 L AST ALT Total Protein 5.6 L Albumin 3.1 L Albumin/Globulin Ratio 1.24 L Procalcitonin Urine Protein Ur Leukocyte Esterase Urine WBC Urine Bacteria Hyaline Casts Urine Mucus 01/07/24 01/07/24 01/07/24 12:51 16:54 21:08 WBC RBC Hgb Hct MCV MCH MCHC RDW Immature Gran # Neutrophils # Lymphocytes # Monocytes # Eosinophils # Hypochromasia (manual) Anisocytosis (manual) Microcytosis (manual) PT INR D-Dimer ABG pH ABG pCO2 ABG pO2 ABG HCO3 ABG O2 Saturation Sodium Chloride Carbon Dioxide Anion Gap BUN BUN/Creatinine Ratio Glucose POC Glucose (mg/dL) 201 H 239 H 338 H Calcium Iron % Saturation Total Bilirubin AST ALT Total Protein Albumin Albumin/Globulin Ratio Procalcitonin Urine Protein Ur Leukocyte Esterase Urine WBC Urine Bacteria Hyaline Casts Urine Mucus 01/08/24 01/08/24 01/08/24 06:01 07:24 07:24 WBC RBC Hgb 10.6 L Hct 37.4 L MCV 77.8 L MCH 22.0 L MCHC 28.3 L RDW 24.1 H Immature Gran # Neutrophils # Lymphocytes # 0.44 L Monocytes # Eosinophils # 0 L Hypochromasia (manual) Anisocytosis (manual) Microcytosis (manual) PT INR D-Dimer ABG pH ABG pCO2 ABG pO2 ABG HCO3 ABG O2 Saturation Sodium 133 L Chloride 87 L Carbon Dioxide 39.4 H Anion Gap BUN 35.7 H BUN/Creatinine Ratio 39.67 H Glucose 397 H POC Glucose (mg/dL) 397 H Calcium Iron % Saturation Total Bilirubin <0.2 L AST ALT Total Protein 5.2 L Albumin 2.9 L Albumin/Globulin Ratio 1.26 L Procalcitonin Urine Protein Ur Leukocyte Esterase Urine WBC Urine Bacteria Hyaline Casts Urine Mucus 01/08/24 01/08/24 01/08/24 12:05 16:55 21:25 WBC RBC Hgb Hct MCV MCH MCHC RDW Immature Gran # Neutrophils # Lymphocytes # Monocytes # Eosinophils # Hypochromasia (manual) Anisocytosis (manual) Microcytosis (manual) PT INR D-Dimer ABG pH ABG pCO2 ABG pO2 ABG HCO3 ABG O2 Saturation Sodium Chloride Carbon Dioxide Anion Gap BUN BUN/Creatinine Ratio Glucose POC Glucose (mg/dL) 495 H 340 H 414 H Calcium Iron % Saturation Total Bilirubin AST ALT Total Protein Albumin Albumin/Globulin Ratio Procalcitonin Urine Protein Ur Leukocyte Esterase Urine WBC Urine Bacteria Hyaline Casts Urine Mucus 01/09/24 01/09/24 01/09/24 06:02 06:22 06:22 WBC 10.22 H RBC Hgb 10.6 L Hct 37.8 L MCV 77.5 L MCH 21.7 L MCHC 28.0 L RDW 24.6 H Immature Gran # Neutrophils # 7.79 H Lymphocytes # Monocytes # 1.08 H Eosinophils # 0.03 L Hypochromasia (manual) Anisocytosis (manual) Microcytosis (manual) PT INR D-Dimer ABG pH ABG pCO2 ABG pO2 ABG HCO3 ABG O2 Saturation Sodium Chloride 91 L Carbon Dioxide 39.0 H Anion Gap BUN 38.6 H BUN/Creatinine Ratio 48.25 H Glucose 194 H POC Glucose (mg/dL) 212 H Calcium Iron % Saturation Total Bilirubin 0.2 L AST ALT Total Protein 5.3 L Albumin 3.1 L Albumin/Globulin Ratio 1.41 L Procalcitonin Urine Protein Ur Leukocyte Esterase Urine WBC Urine Bacteria Hyaline Casts Urine Mucus 01/09/24 01/09/24 01/09/24 11:34 16:34 20:28 WBC RBC Hgb Hct MCV MCH MCHC RDW Immature Gran # Neutrophils # Lymphocytes # Monocytes # Eosinophils # Hypochromasia (manual) Anisocytosis (manual) Microcytosis (manual) PT INR D-Dimer ABG pH ABG pCO2 ABG pO2 ABG HCO3 ABG O2 Saturation Sodium Chloride Carbon Dioxide Anion Gap BUN BUN/Creatinine Ratio Glucose POC Glucose (mg/dL) 325 H 300 H 340 H Calcium Iron % Saturation Total Bilirubin AST ALT Total Protein Albumin Albumin/Globulin Ratio Procalcitonin Urine Protein Ur Leukocyte Esterase Urine WBC Urine Bacteria Hyaline Casts Urine Mucus 01/10/24 01/10/24 01/10/24 06:31 11:38 16:38 WBC RBC Hgb Hct MCV MCH MCHC RDW Immature Gran # Neutrophils # Lymphocytes # Monocytes # Eosinophils # Hypochromasia (manual) Anisocytosis (manual) Microcytosis (manual) PT INR D-Dimer ABG pH ABG pCO2 ABG pO2 ABG HCO3 ABG O2 Saturation Sodium Chloride Carbon Dioxide Anion Gap BUN BUN/Creatinine Ratio Glucose POC Glucose (mg/dL) 220 H 188 H 167 H Calcium Iron % Saturation Total Bilirubin AST ALT Total Protein Albumin Albumin/Globulin Ratio Procalcitonin Urine Protein Ur Leukocyte Esterase Urine WBC Urine Bacteria Hyaline Casts Urine Mucus 01/10/24 01/11/24 01/11/24 20:27 06:15 11:21 WBC RBC Hgb Hct MCV MCH MCHC RDW Immature Gran # Neutrophils # Lymphocytes # Monocytes # Eosinophils # Hypochromasia (manual) Anisocytosis (manual) Microcytosis (manual) PT INR D-Dimer ABG pH ABG pCO2 ABG pO2 ABG HCO3 ABG O2 Saturation Sodium Chloride Carbon Dioxide Anion Gap BUN BUN/Creatinine Ratio Glucose POC Glucose (mg/dL) 233 H 223 H 250 H Calcium Iron % Saturation Total Bilirubin AST ALT Total Protein Albumin Albumin/Globulin Ratio Procalcitonin Urine Protein Ur Leukocyte Esterase Urine WBC Urine Bacteria Hyaline Casts Urine Mucus 01/11/24 01/11/24 01/12/24 16:23 20:21 04:59 WBC 11.29 H RBC Hgb 10.7 L Hct 38.4 L MCV 79.0 L MCH 22.0 L MCHC 27.9 L RDW 25.9 H Immature Gran # 0.06 H Neutrophils # 8.56 H Lymphocytes # Monocytes # 1.45 H Eosinophils # Hypochromasia (manual) Anisocytosis (manual) Microcytosis (manual) PT INR D-Dimer ABG pH ABG pCO2 ABG pO2 ABG HCO3 ABG O2 Saturation Sodium Chloride Carbon Dioxide Anion Gap BUN BUN/Creatinine Ratio Glucose POC Glucose (mg/dL) 201 H 222 H Calcium Iron % Saturation Total Bilirubin AST ALT Total Protein Albumin Albumin/Globulin Ratio Procalcitonin Urine Protein Ur Leukocyte Esterase Urine WBC Urine Bacteria Hyaline Casts Urine Mucus 01/12/24 01/12/24 01/12/24 04:59 05:52 11:27 WBC RBC Hgb Hct MCV MCH MCHC RDW Immature Gran # Neutrophils # Lymphocytes # Monocytes # Eosinophils # Hypochromasia (manual) Anisocytosis (manual) Microcytosis (manual) PT INR D-Dimer ABG pH ABG pCO2 ABG pO2 ABG HCO3 ABG O2 Saturation Sodium Chloride 89 L Carbon Dioxide 36.3 H Anion Gap 14.70 H BUN 39.4 H BUN/Creatinine Ratio 49.25 H Glucose 142 H POC Glucose (mg/dL) 165 H 174 H Calcium Iron % Saturation Total Bilirubin AST ALT Total Protein 5.5 L Albumin 3.1 L Albumin/Globulin Ratio 1.29 L Procalcitonin Urine Protein Ur Leukocyte Esterase Urine WBC Urine Bacteria Hyaline Casts Urine Mucus 01/12/24 01/12/24 01/13/24 16:59 20:53 06:00 WBC RBC Hgb Hct MCV MCH MCHC RDW Immature Gran # Neutrophils # Lymphocytes # Monocytes # Eosinophils # Hypochromasia (manual) Anisocytosis (manual) Microcytosis (manual) PT INR D-Dimer ABG pH ABG pCO2 ABG pO2 ABG HCO3 ABG O2 Saturation Sodium Chloride Carbon Dioxide Anion Gap BUN BUN/Creatinine Ratio Glucose POC Glucose (mg/dL) 247 H 237 H 141 H Calcium Iron % Saturation Total Bilirubin AST ALT Total Protein Albumin Albumin/Globulin Ratio Procalcitonin Urine Protein Ur Leukocyte Esterase Urine WBC Urine Bacteria Hyaline Casts Urine Mucus 01/13/24 01/13/24 01/13/24 11:43 16:19 20:40 WBC RBC Hgb Hct MCV MCH MCHC RDW Immature Gran # Neutrophils # Lymphocytes # Monocytes # Eosinophils # Hypochromasia (manual) Anisocytosis (manual) Microcytosis (manual) PT INR D-Dimer ABG pH ABG pCO2 ABG pO2 ABG HCO3 ABG O2 Saturation Sodium Chloride Carbon Dioxide Anion Gap BUN BUN/Creatinine Ratio Glucose POC Glucose (mg/dL) 237 H 118 H 267 H Calcium Iron % Saturation Total Bilirubin AST ALT Total Protein Albumin Albumin/Globulin Ratio Procalcitonin Urine Protein Ur Leukocyte Esterase Urine WBC Urine Bacteria Hyaline Casts Urine Mucus 01/14/24 01/14/24 01/14/24 03:34 03:34 05:38 WBC RBC Hgb 10.4 L Hct 36.7 L MCV MCH 22.8 L MCHC 28.3 L RDW 25.9 H Immature Gran # Neutrophils # Lymphocytes # Monocytes # 1.57 H Eosinophils # Hypochromasia (manual) 2+ A Anisocytosis (manual) 2+ A Microcytosis (manual) 2+ A PT INR D-Dimer ABG pH ABG pCO2 ABG pO2 ABG HCO3 ABG O2 Saturation Sodium Chloride 88 L Carbon Dioxide 38.9 H Anion Gap BUN 37.4 H BUN/Creatinine Ratio 41.56 H Glucose 187 H POC Glucose (mg/dL) 294 H Calcium Iron % Saturation Total Bilirubin 0.2 L AST ALT Total Protein 5.6 L Albumin 3.2 L Albumin/Globulin Ratio 1.33 L Procalcitonin Urine Protein Ur Leukocyte Esterase Urine WBC Urine Bacteria Hyaline Casts Urine Mucus 01/14/24 01/14/24 01/14/24 12:12 16:42 20:26 WBC RBC Hgb Hct MCV MCH MCHC RDW Immature Gran # Neutrophils # Lymphocytes # Monocytes # Eosinophils # Hypochromasia (manual) Anisocytosis (manual) Microcytosis (manual) PT INR D-Dimer ABG pH ABG pCO2 ABG pO2 ABG HCO3 ABG O2 Saturation Sodium Chloride Carbon Dioxide Anion Gap BUN BUN/Creatinine Ratio Glucose POC Glucose (mg/dL) 168 H 156 H 244 H Calcium Iron % Saturation Total Bilirubin AST ALT Total Protein Albumin Albumin/Globulin Ratio Procalcitonin Urine Protein Ur Leukocyte Esterase Urine WBC Urine Bacteria Hyaline Casts Urine Mucus 01/15/24 01/15/24 01/15/24 05:37 11:38 17:01 WBC RBC Hgb Hct MCV MCH MCHC RDW Immature Gran # Neutrophils # Lymphocytes # Monocytes # Eosinophils # Hypochromasia (manual) Anisocytosis (manual) Microcytosis (manual) PT INR D-Dimer ABG pH ABG pCO2 ABG pO2 ABG HCO3 ABG O2 Saturation Sodium Chloride Carbon Dioxide Anion Gap BUN BUN/Creatinine Ratio Glucose POC Glucose (mg/dL) 139 H 156 H 112 H Calcium Iron % Saturation Total Bilirubin AST ALT Total Protein Albumin Albumin/Globulin Ratio Procalcitonin Urine Protein Ur Leukocyte Esterase Urine WBC Urine Bacteria Hyaline Casts Urine Mucus 01/15/24 01/16/24 01/16/24 20:43 06:30 11:39 WBC RBC Hgb Hct MCV MCH MCHC RDW Immature Gran # Neutrophils # Lymphocytes # Monocytes # Eosinophils # Hypochromasia (manual) Anisocytosis (manual) Microcytosis (manual) PT INR D-Dimer ABG pH ABG pCO2 ABG pO2 ABG HCO3 ABG O2 Saturation Sodium Chloride Carbon Dioxide Anion Gap BUN BUN/Creatinine Ratio Glucose POC Glucose (mg/dL) 161 H 116 H 143 H Calcium Iron % Saturation Total Bilirubin AST ALT Total Protein Albumin Albumin/Globulin Ratio Procalcitonin Urine Protein Ur Leukocyte Esterase Urine WBC Urine Bacteria Hyaline Casts Urine Mucus 01/16/24 01/16/24 01/16/24 16:44 20:48 23:12 WBC 16.0 H RBC Hgb 11.3 L Hct MCV MCH 23.2 L MCHC 29.0 L RDW 21.7 H Immature Gran # Neutrophils # Lymphocytes # Monocytes # Eosinophils # Hypochromasia (manual) Anisocytosis (manual) Microcytosis (manual) PT INR D-Dimer ABG pH ABG pCO2 ABG pO2 ABG HCO3 ABG O2 Saturation Sodium Chloride Carbon Dioxide Anion Gap BUN BUN/Creatinine Ratio Glucose POC Glucose (mg/dL) 133 H 123 H Calcium Iron % Saturation Total Bilirubin AST ALT Total Protein Albumin Albumin/Globulin Ratio Procalcitonin Urine Protein Ur Leukocyte Esterase Urine WBC Urine Bacteria Hyaline Casts Urine Mucus 01/16/24 01/16/24 01/16/24 23:12 23:12 23:15 WBC RBC Hgb Hct MCV MCH MCHC RDW Immature Gran # Neutrophils # Lymphocytes # Monocytes # Eosinophils # Hypochromasia (manual) Anisocytosis (manual) Microcytosis (manual) PT INR D-Dimer 1.48 H ABG pH 7.55 H ABG pCO2 50 H ABG pO2 61 L ABG HCO3 44 H* ABG O2 Saturation 91.4 L Sodium 134 L Chloride 87 L Carbon Dioxide 37 H Anion Gap BUN 63 H BUN/Creatinine Ratio Glucose POC Glucose (mg/dL) Calcium Iron % Saturation Total Bilirubin AST ALT Total Protein 6.0 L Albumin 3.0 L Albumin/Globulin Ratio Procalcitonin Urine Protein Ur Leukocyte Esterase Urine WBC Urine Bacteria Hyaline Casts Urine Mucus 01/17/24 01/17/24 01/17/24 00:50 04:25 04:25 WBC 17.7 H RBC Hgb 11.3 L Hct 37.9 L MCV MCH 24.0 L MCHC 29.8 L RDW 21.8 H Immature Gran # Neutrophils # 14.9 H Lymphocytes # Monocytes # 1.3 H Eosinophils # Hypochromasia (manual) Anisocytosis (manual) Microcytosis (manual) PT INR D-Dimer ABG pH ABG pCO2 ABG pO2 ABG HCO3 ABG O2 Saturation Sodium 133 L Chloride 88 L Carbon Dioxide 38 H Anion Gap BUN 67 H BUN/Creatinine Ratio Glucose 115 H POC Glucose (mg/dL) 121 H Calcium Iron % Saturation Total Bilirubin AST ALT Total Protein 6.1 L Albumin 3.1 L Albumin/Globulin Ratio Procalcitonin Urine Protein Ur Leukocyte Esterase Urine WBC Urine Bacteria Hyaline Casts Urine Mucus 01/17/24 01/17/24 06:44 11:04 WBC RBC Hgb Hct MCV MCH MCHC RDW Immature Gran # Neutrophils # Lymphocytes # Monocytes # Eosinophils # Hypochromasia (manual) Anisocytosis (manual) Microcytosis (manual) PT INR D-Dimer ABG pH ABG pCO2 ABG pO2 ABG HCO3 ABG O2 Saturation Sodium Chloride Carbon Dioxide Anion Gap BUN BUN/Creatinine Ratio Glucose POC Glucose (mg/dL) 131 H 178 H Calcium Iron % Saturation Total Bilirubin AST ALT Total Protein Albumin Albumin/Globulin Ratio Procalcitonin Urine Protein Ur Leukocyte Esterase Urine WBC Urine Bacteria Hyaline Casts Urine Mucus Assessment and Plan Assessment: * Altered mental status, likely due to acute metabolic encephalopathy. Patient's mentation improved. Reasons multifactorial as mentioned below. * Hypoxemia, elevated pCO2 * UTI * Pneumonia * Mild hyponatremia, * Elevated BUN * History of non-small cell lung cancer, diagnosed at [facility]. Patient apparently did not receive treatment. * Post obstructive pneumonitis, on antibiotics. * Diabetes * Chronic bilateral lower extremity weakness, wheelchair-bound for the last 6 months. * History of back surgeries * Tobacco use Plan: * Patient probably has metabolic encephalopathy. CT head showed no acute process. * B12 413, MMA 0.27, folate 8.5, TSH 2.75. All normal. * Hemoglobin A1c 6.5, we will repeat. * Patient has been treated for possible UTI and pneumonia. Currently off antibiotics. ID following. * Patient also has possible PAD, vascular surgery in [place]. * Recommend orthopedic consultation for lower extremity weakness, as I am not sure, if the weakness is new, or old finding. * May need EMG and nerve conduction of lower extremity outpatient to rule out diabetic neuropathy/radiculopathy * Thank you for the consult.
[2024-01-18 12:04] LABS: Glucose,Whole Blood 230 mg/dL (70-110)
--- NOTE | 2024-01-18 13:22 | P.PN ---
Subjective Progress Note Date: 01/18/24 CHIEF COMPLAINT: Anemia HISTORY OF PRESENT ILLNESS: Patient is status post EGD revealing antral gastritis. Patient is status post colonoscopy that reported diverticulosis. no new complaints. Patient sitting up in bed. No new complaints. Currently on regular medical floor followed by neurology regarding his metabolic encephalopathy. Tolerating diet. No abdominal pain. PHYSICAL EXAM: VITAL SIGNS: Reviewed. GENERAL: no acute distress. ABDOMEN: Soft. Nondistended. Nontender. ASSESSMENT: 1. Anemia. Status post EGD revealing antral gastritis. Colonoscopy with diverticulosis. No active bleeding. 2. Lung Cancer PLAN: -Continue supportive care -Patient can be discharged from surgical standpoint when medically cleared -Continue Protonix at discharge Physician Rail Flaw Detector Operator note has been reviewed by physician. Signing provider agrees with the documented findings, assessment, and plan of care. Objective - Vital Signs Vital signs: Vital Signs Temp 98.9 F 01/18/24 12:43 Pulse 65 01/18/24 12:43 Resp 17 01/18/24 12:43 BP 107/62 01/18/24 12:43 Pulse Ox 94 L 01/18/24 12:43 FiO2 40 01/17/24 04:00 Intake & Output 01/17/24 01/18/24 01/18/24 18:59 06:59 18:59 Intake Total 1850 Output Total 625 425 Balance 1225 -425 Weight 81 kg Intake: IV 1400 Sodium Chloride 0.9% 1, 1400 000 ml @ 150 mls/hr IV . [id number] [facility] Rx#:[id number] Oral 450 Output: Urine 625 425 Other: Voiding Method External Catheter External Catheter External Catheter # Bowel Movements 2 - Labs CBC & Chem 7: 01/17/24 04:25 01/17/24 04:25 Labs: Abnormal Lab Results - Last 24 Hours (Table) 01/17/24 01/17/24 01/18/24 Range/Units 16:07 21:32 05:37 POC Glucose (mg/dL) 172 H 204 H 156 H (70-110) mg/dL 01/18/24 Range/Units 12:02 POC Glucose (mg/dL) 230 H (70-110) mg/dL
[2024-01-18 16:35] LABS: Glucose,Whole Blood 193 mg/dL (70-110)
[2024-01-18] MEDS: FLUCONAZOLE 100 MG TAB PO ONE (17:31)
[2024-01-18] MEDS: NYSTATIN 100,000 UNIT/ML SUSP 500,000 UNIT/5 ML CUP PO SCH (18:22)
--- NOTE | 2024-01-18 18:55 | CT ---
EXAMINATION TYPE: CT lumbar spine wo con CT DLP: 1592.6 mGycm, Automated exposure control for dose reduction was used. DATE OF EXAM: 01/18/2024 6:16 PM COMPARISON: 09/24/2023. CLINICAL INDICATION:Male, 68 years old with history of leg neuritis; PHH, Lower back and leg pain. TECHNIQUE: Multiple axial images were obtained from the midportion of T11 through the sacroiliac berta nts. Soft tissue and bone windows in coronal and sagittal planes were obtained and reviewed. Contrast used: mL of , (None, if empty). Oral contrast used: (None, if empty). FINDINGS: Alignment: There are 5 lumbar type vertebral bodies within normal alignment. Bone: Multilevel degeneration changes with thickened stroma, Schmorl's nodes, osteophyte formation, endplate cirrhosis and facet joint arthropathy. There is postsurgical changes extending from L2 to L5 . No organizing fluid collection the surgical bed. There is a transitional vertebrae with lumbarizati on. Discs: T12-L1: No spinal canal or neural foraminal stenosis is identified. L1-L2: Facet joint arthropathy and disc bulging result with mild spinal canal stenosis and mild bilat eral neural foraminal stenosis. L2-L3: Facet joint arthropathy and disc bulging result with mild spinal canal stenosis and mild bilat eral neural foraminal stenosis. L3-L4: Facet joint arthropathy and disc bulging result with mild spinal canal stenosis and moderate b ilateral neural foraminal stenosis. L4-L5: Facet joint arthropathy and disc bulging result with mild to moderate spinal canal stenosis an d moderate bilateral neural foraminal stenosis. L5-S1: Facet joint arthropathy and disc bulging result with mild spinal canal stenosis and moderate b ilateral neural foraminal stenosis. Other: Small right and trace left pleural effusion streaky edema noted throughout the pulmonary vascu lature. Left renal cysts IMPRESSION: 1. No evidence for spinal fracture. 2. Post surgical changes of the spine with spinal canal. Pain. 3. Moderate to severe degeneration changes with moderate multilevel neural foraminal stenosis bilater ally.
[2024-01-18 20:33] LABS: Glucose,Whole Blood 229 mg/dL (70-110)
--- NOTE | 2024-01-19 04:51 | PN ---
PROGRESS NOTE SUBJECTIVE: This is a 68-year-old white male with generalized weakness. He was in ICU for 1 night with no significant findings found. He stack out of the ICU. He is saturating 100% on 3 L oxygen. Today, he will continue on his oxygen at home and breathing treatments. Follow up with chemotherapy and radiation treatment for his small-cell lung cancer. No change in his clinical status at this point. Sugars have been mid 100s to 200s. Hemoglobin is up to 11.3. He has elevated white count. We will get Dr. Matute to see, he has been seeing him all along, will see what he says about the elevated white count. Prognosis guarded. Continue current treatment. OBJECTIVE: GENERAL: He is alert and oriented x3. PSYCH: Fair mood and affect. GI: Soft. HEMATOLOGIC: Negative for Homans. He has recently seen the vascular and podiatry for wound infections in the feet and his vascular supply to the feet. PROGNOSIS: Guarded. Continue current treatments, possibly recheck his urine for infection secondary to elevated white count. MMODL / IJN: [id number] /
[2024-01-19 06:16] LABS: Glucose,Whole Blood 150 mg/dL (70-110)
[2024-01-19] MEDS: FLUCONAZOLE 100 MG TAB PO SCH (08:58)
[2024-01-19 10:41] LABS: Basophils # (A) 0.05 X 10*3/uL (0.00-0.10); Basophils % (A) 0.5 %; Eosinophils # (A) 0.08 X 10*3/uL (0.04-0.35); Eosinophils % (A) 0.7 %; HCT 34.2 % (39.6-50.0); HGB 9.6 g/dL (13.0-17.0); Lymphocytes # (A) 1.11 X 10*3/uL (0.90-5.00); Lymphocytes % (A) 10.4 %; MCH 22.8 pg (27.0-32.0); MCHC 28.1 g/dL (32.0-37.0); MCV 81.2 FL (80.0-97.0); Monocytes # (A) 0.98 X 10*3/uL (0.20-1.00); Monocytes % (A) 9.2 %; NRBC Per 100 WBC 0 X 10*3/uL (0.00-0.01); Neutrophils # (A) 8.45 X 10*3/uL (1.80-7.70); Neutrophils % (A) 78.9 %; Platelet Count 295 X 10*3/uL (140-440); RBC 4.21 X 10*6/uL (4.40-5.60); RDW 25.5 % (11.5-14.5)
[2024-01-19 10:51] LABS: ALT 17 U/L (10-49); AST 16 U/L (14-35); Albumin/Globulin Ratio 1.11 Ratio (1.60-3.17); Alkaline Phosphatase 108 U/L (41-126); Blood Urea Nitrogen 58.2 mg/dL (9.0-27.0); Calcium 8.6 mg/dL (8.7-10.3); Carbon Dioxide 36.2 mmol/L (21.6-31.8); Chloride 93 mmol/L (96-109); Globulin 2.7 g/dL (1.6-3.3); Glucose 126 mg/dL (70-110); Potassium 3.3 mmol/L (3.5-5.5); Sodium 141 mmol/L (135-145); Total Bilirubin 0.2 mg/dL (0.3-1.2); Total Protein 5.7 g/dL (6.2-8.2)
[2024-01-19 11:12] LABS: Glucose,Whole Blood 214 mg/dL (70-110)
--- NOTE | 2024-01-19 11:37 | P.GSCN ---
History of Present Illness Consult date: 01/19/24 Reason for Consult: Severe peripheral arterial disease Requesting physician: Jeremy Atkinson History of present illness: This is a pleasant 68-year-old male who was admitted 20 days ago with complaints of generalized weakness and shortness of breath. Patient was found to be anemic. He has a history of COPD oxygen dependent, CVA/TIA, diabetes mellitus, hypertension, chronic pain, peripheral arterial disease, nicotine dependence and lung cancer. Patient has multiple consultants following. Apparently he was diagnosed within the last year of lung cancer at [facility] and was seen by oncology who had recommended treatment with chemotherapy possible radiation however patient had never followed up. During this hospitalization he has been seen by an infectious disease for urinary tract infection, pulmonology for COPD, oncology for lung cancer, general surgery for anemia and vascular surgery now on consultation for peripheral arterial disease. Patient has bilateral lower extremity wounds shins and toes that are dry and scabbed. He has thick toenails. States he has had pain in his lower extremities and wounds for well over a year. States he has seen a vascular surgeon out of [facility] and believes that about a year ago or 2 he had a stent put in one of his legs he believes possibly right. States he was supposed to have stenting done in his other leg however never followed up. Patient also now being seen by orthopedics as apparently he had outpatient cervical spine surgery scheduled however was found to be anemic and admitted to the hospital. He was on Eliquis for history of stroke. No current anticoagulation. He did have an arterial duplex during this admission which reported ABIs of 0.48 on the right and 0.61 on the left. Patient has had chronic lower extremity pain and weakness. He has had chronic back pain and chronic back issues. He has been pretty much wheelchair dependent for the last year or so. Patient is a poor historian. He currently complains of back and buttock pain. Generalized weakness and some shortness of breath. Chronic lower extremity pain. Review of Systems A 14 point review systems was completed all pertinent positives and negatives as stated in the HPI. Past Medical History Past Medical History: COPD, CVA/TIA, Diabetes Mellitus, Hypertension, Musculoskeletal Disorder Additional Past Medical History / Comment(s): Hx. "mini stroke after 2nd covid shot", states has been on blood thinners since TIA 2020, hx. fall last 2021 that injured back, frequent falls History of Any Multi-Drug Resistant Organisms: None Reported Past Surgical History: Hernia Repair Additional Past Surgical History / Comment(s): Excision L Facial lipoma, repair hiatal hernia, laminectomy, Past Anesthesia/Blood Transfusion Reactions: No Reported Reaction Past Psychological History: No Psychological Hx Reported Additional Psychological History / Comment(s): Pt is currently staying with his exwife and daughter. Pt states he lives in [place] but is stuck here right now because of everything going on medically Smoking Status: Current every day smoker Past Alcohol Use History: None Reported Additional Past Alcohol Use History / Comment(s): Pt states he use to drink about 20 years ago, quit smoking 09/2022, was 2ppd since teens Past Drug Use History: None Reported - Past Family History Mother Family Medical History: Cancer Additional Family Medical History / Comment(s): Mother of lung cancer. Father History Unknown: Yes Medications and Allergies Home Medications Medication Instructions Recorded Confirmed Type Aspirin [Adult Low Dose Aspirin EC] 81 mg PO DAILY 04/15/22 12/30/23 History Atorvastatin [Lipitor] 40 mg PO DAILY 04/15/22 12/30/23 History Gabapentin 800 mg PO QID 06/17/22 12/30/23 History HYDROcodone/APAP 5-325MG [[place] 1 tab PO BID 12/17/22 12/30/23 History 5-325] Budesonide [Pulmicort] 0.5 mg INHALATION RT-BID 12/30/23 12/30/23 History Furosemide [Lasix] 40 mg PO BID 12/30/23 12/30/23 History Ipratropium-Albuterol Nebulize 3 ml INHALATION RT-TID 12/30/23 12/30/23 History [Duoneb 0.5 mg-3 mg/3 ml Soln] Montelukast [Singulair] 10 mg PO DAILY 12/30/23 12/30/23 History Repaglinide [Prandin] 1 mg PO TID 12/30/23 12/30/23 History atenoloL [Tenormin] 50 mg PO BID 12/30/23 12/30/23 History Acetaminophen Tab [Tylenol] 650 mg PO Q6HR PRN tab 01/07/24 Rx Dapagliflozin Propanediol [Farxiga] 5 mg PO HS 90 Days #90 tab 01/07/24 Rx Loratadine [Claritin] 10 mg PO DAILY 90 Days #90 tab 01/07/24 Rx Midodrine [ProAmatine] 10 mg PO AC-TID 30 Days #90 tab 01/07/24 Rx Pioglitazone [Actos] 15 mg PO DIRECTED 90 Days #90 01/07/24 Rx tab metOLazone [Zaroxolyn] 2.5 mg PO DAILY 90 Days #90 tab 01/07/24 Rx Allergies Allergy/AdvReac Type Severity Reaction Status Date / Time No Known Allergies Allergy Verified 12/30/23 12:50 Surgical - Exam Vital Signs Temp Pulse Resp BP Pulse Ox 98.2 F 78 24 144/74 96 12/30/23 12:48 12/30/23 12:48 12/30/23 12:48 12/30/23 12:48 12/30/23 12:48 General appearance: The patient is alert, oriented, appears in no acute distress. HET: Head is normocephalic and atraumatic. Pupils are equal and reactive. Neck: Supple. Heart: Regular. Lungs: Diminished. Equal expansion, normal respiratory effort. Abdomen: Soft, nontender, nondistended. Extremities: Palpable bilateral femoral pulses none palpable DP or PT pulses. Lower extremities warm to the touch with adequate refill. Patient with multiple dry scabbed wounds on bilateral shins and toes. No evidence of infection or drainage. Neurological: No focal deficits. Alert and oriented. Results - Labs 01/19/24 04:58 01/19/24 04:58 Abnormal Lab Results - Last 24 Hours (Table) 01/17/24 01/18/24 01/18/24 Range/Units 04:25 12:02 16:34 POC Glucose (mg/dL) 230 H 193 H (70-110) mg/dL Hemoglobin A1c 6.8 H (<=6.0) % 01/18/24 01/19/24 Range/Units 20:27 06:15 POC Glucose (mg/dL) 229 H 150 H (70-110) mg/dL Hemoglobin A1c (<=6.0) % Diabetes panel 01/17/24 Range/Units 04:25 Hemoglobin A1c 6.8 H (<=6.0) % Assessment and Plan Assessment: 1. Chronic peripheral arterial disease with possible previous stenting 2. Bilateral lower extremity diabetic wounds 3. Diabetes mellitus 4. COPD 5. Lung mass 6. Anemia 7. Nicotine dependence 8. Medical noncompliance 9. History of TIA 10. Chronic pain syndrome Plan: After reviewing patient's chart it was noted that Dr. Segal had initially seen patient on 01/16/2024 and recommended if patient was a candidate he would recommend angiogram and follow with him. Apparently patient does have a history of previous lower extremity stenting done at [facility]. We will try to get those records as an outpatient. There is no indication for any urgent vascular surgical intervention or further workup at this time as this is all chronic lower extremity disease. Patient can follow-up either with Dr. Segal or our office for further vascular workup. He may also choose to return to previous vascular surgeon he has seen at [facility] if different. Continue with recommendations from multiple other consultants. Thank you for this consultation, we will sign off at this time. The impression and plan of care has been dictated as directed. Dr. Turcios I performed a history and examination of this patient, discussed the same with the dictator. I agree with the dictator's note ,documented as a scribe. Any additional findings or plans will be noted.
[2024-01-19 13:59] VITALS: BMI 24.9
[2024-01-19 16:06] LABS: Glucose,Whole Blood 288 mg/dL (70-110)
--- NOTE | 2024-01-19 16:20 | P.PN ---
Subjective Progress Note Date: 01/17/24 Principal diagnosis: Reason for follow-up is urinary tract infection Patient is a 68-year-old male with a past medical history significant for diabetes mellitus hypertension CVA TIA COPD current everyday smoker presenting to the hospital for evaluation of increased weakness and difficulty breathing, patient did have elevated white count did have a positive UA concer shahana for possible drug-resistant UTI prompting this consultation. Patient also have abnormal CT of the chest with masslike consolidation apparently has been diagnosed with the lung cancer last year as per discussion with the pulmonary. On today's evaluation that is 01/17/2024, Patient was noticed to have some mental status changes decreased level responsiveness and the patient has been transferred to the ICU, the patient has been afebrile hemodynamically stable vomiting diet and the changes reported by nursing staff patient was slightly lethargic to provide any history Patient white count of 17.7 creatinine is 1.11 Objective - Vital Signs Vital signs: Vital Signs Temp 98.4 F 01/17/24 04:00 Pulse 70 01/17/24 09:03 Resp 10 L 01/17/24 09:00 BP 109/66 01/17/24 09:00 Pulse Ox 93 L 01/17/24 09:00 FiO2 40 01/17/24 04:00 Intake & Output 01/16/24 01/17/24 01/17/24 18:59 06:59 18:59 Intake Total 750 550 Output Total 130 250 0 Balance -130 500 550 Intake: IV 750 450 Sodium Chloride 0.9% 1, 750 450 000 ml @ 150 mls/hr IV . Q6H40M [facility] Rx#:[id number] Oral 100 Output: Urine 130 250 0 Other: Voiding Method External Catheter External Catheter External Catheter # Bowel Movements 2 - Exam GENERAL DESCRIPTION: An elderly male lying in bed in no distress RESPIRATORY SYSTEM: Unlabored breathing , coarse breath sounds bilaterally HEART: S1 S2 regular rate and rhythm , ABDOMEN: Soft , no tenderness EXTREMITIES: Bilateral lower extremity with some swelling and superficial ulceration - Labs CBC & Chem 7: 01/19/24 04:58 01/19/24 04:58 Labs: Abnormal Lab Results - Last 24 Hours (Table) 01/16/24 01/16/24 01/16/24 Range/Units 11:39 16:44 20:48 WBC (3.8-10.6) k/uL Hgb (13.0-17.5) gm/dL Hct (39.0-53.0) % MCH (25.0-35.0) pg MCHC (31.0-37.0) g/dL RDW (11.5-15.5) % Neutrophils # (1.3-7.7) k/uL Monocytes # (0-1.0) k/uL D-Dimer (<0.60) mg/L FEU ABG pH (7.35-7.45) ABG pCO2 (35-45) mmHg ABG pO2 (83-108) mmHg ABG HCO3 (21-25) mmol/L ABG O2 Saturation (94-97) % Sodium (137-145) mmol/L Chloride (98-107) mmol/L Carbon Dioxide (22-30) mmol/L BUN (9-20) mg/dL Glucose (74-99) mg/dL POC Glucose (mg/dL) 143 H 133 H 123 H (70-110) mg/dL Total Protein (6.3-8.2) g/dL Albumin (3.5-5.0) g/dL 01/16/24 01/16/24 01/16/24 Range/Units 23:12 23:12 23:12 WBC 16.0 H (3.8-10.6) k/uL Hgb 11.3 L (13.0-17.5) gm/dL Hct (39.0-53.0) % MCH 23.2 L (25.0-35.0) pg MCHC 29.0 L (31.0-37.0) g/dL RDW 21.7 H (11.5-15.5) % Neutrophils # (1.3-7.7) k/uL Monocytes # (0-1.0) k/uL D-Dimer 1.48 H (<0.60) mg/L FEU ABG pH (7.35-7.45) ABG pCO2 (35-45) mmHg ABG pO2 (83-108) mmHg ABG HCO3 (21-25) mmol/L ABG O2 Saturation (94-97) % Sodium 134 L (137-145) mmol/L Chloride 87 L (98-107) mmol/L Carbon Dioxide 37 H (22-30) mmol/L BUN 63 H (9-20) mg/dL Glucose (74-99) mg/dL POC Glucose (mg/dL) (70-110) mg/dL Total Protein 6.0 L (6.3-8.2) g/dL Albumin 3.0 L (3.5-5.0) g/dL 01/16/24 01/17/24 01/17/24 Range/Units 23:15 00:50 04:25 WBC 17.7 H (3.8-10.6) k/uL Hgb 11.3 L (13.0-17.5) gm/dL Hct 37.9 L (39.0-53.0) % MCH 24.0 L (25.0-35.0) pg MCHC 29.8 L (31.0-37.0) g/dL RDW 21.8 H (11.5-15.5) % Neutrophils # 14.9 H (1.3-7.7) k/uL Monocytes # 1.3 H (0-1.0) k/uL D-Dimer (<0.60) mg/L FEU ABG pH 7.55 H (7.35-7.45) ABG pCO2 50 H (35-45) mmHg ABG pO2 61 L (83-108) mmHg ABG HCO3 44 H* (21-25) mmol/L ABG O2 Saturation 91.4 L (94-97) % Sodium (137-145) mmol/L Chloride (98-107) mmol/L Carbon Dioxide (22-30) mmol/L BUN (9-20) mg/dL Glucose (74-99) mg/dL POC Glucose (mg/dL) 121 H (70-110) mg/dL Total Protein (6.3-8.2) g/dL Albumin (3.5-5.0) g/dL 01/17/24 01/17/24 01/17/24 Range/Units 04:25 06:44 11:04 WBC (3.8-10.6) k/uL Hgb (13.0-17.5) gm/dL Hct (39.0-53.0) % MCH (25.0-35.0) pg MCHC (31.0-37.0) g/dL RDW (11.5-15.5) % Neutrophils # (1.3-7.7) k/uL Monocytes # (0-1.0) k/uL D-Dimer (<0.60) mg/L FEU ABG pH (7.35-7.45) ABG pCO2 (35-45) mmHg ABG pO2 (83-108) mmHg ABG HCO3 (21-25) mmol/L ABG O2 Saturation (94-97) % Sodium 133 L (137-145) mmol/L Chloride 88 L (98-107) mmol/L Carbon Dioxide 38 H (22-30) mmol/L BUN 67 H (9-20) mg/dL Glucose 115 H (74-99) mg/dL POC Glucose (mg/dL) 131 H 178 H (70-110) mg/dL Total Protein 6.1 L (6.3-8.2) g/dL Albumin 3.1 L (3.5-5.0) g/dL Assessment and Plan (1) Urinary tract infection Current Visit: Yes Status: Acute Code(s): N39.0 - URINARY TRACT INFECTION, SITE NOT SPECIFIED SNOMED Code(s): 52610139 (2) Pneumonia Current Visit: Yes Status: Acute Code(s): J18.9 - PNEUMONIA, UNSPECIFIED ORGANISM SNOMED Code(s): 828524557 Plan: 1patient presented to hospital with generalized weakness which is likely multifactorial patient did have some urinary symptoms positive UA concerning for symptomatic UTI with a last urine culture positive for Klebsiella that was intermediate to Unasyn 2-patient also have abnormal CT of the chest concerning for masslike consolidation and lymphadenopathy concerning for possible malignancy, in this patient who did have a diagnosis of lung cancer last year but did not have any follow-up pulmonary and oncology following the patient 3patient urine culture grew Klebsiella that is sensitive to ceftriaxone 4-patient is afebrile and the patient has received adequate antibiotic therapy for both UTI and possible component of pneumonia, he did have mental status changes questionably related and is being managed by admitting ICU team Dictation was produced using [employer] dictation software. please excuse any grammatical, word or spelling errors. Time with Patient: Less than 30
--- NOTE | 2024-01-19 16:21 | P.PN ---
Subjective Progress Note Date: 01/18/24 Principal diagnosis: Reason for follow-up is urinary tract infection Patient is a 68-year-old male with a past medical history significant for diabetes mellitus hypertension CVA TIA COPD current everyday smoker presenting to the hospital for evaluation of increased weakness and difficulty breathing, patient did have elevated white count did have a positive UA concer shahana for possible drug-resistant UTI prompting this consultation. Patient also have abnormal CT of the chest with masslike consolidation apparently has been diagnosed with the lung cancer last year as per discussion with the pulmonary. On today's evaluation that is 01/18/2024, patient has been afebrile, patient is breathing comfortably and is currently on 3 L nasal oxygen patient denies having any significant cough no chest pain shortness of breath, patient denies nausea vomiting or diarrhea and no abdominal pain feeling better today. No lab draw today Objective - Vital Signs Vital signs: Vital Signs Temp 98.9 F 01/18/24 07:52 Pulse 73 01/18/24 08:13 Resp 17 01/18/24 07:52 BP 115/60 01/18/24 09:52 Pulse Ox 96 01/18/24 08:57 FiO2 40 01/17/24 04:00 Intake & Output 01/17/24 01/18/24 01/18/24 18:59 06:59 18:59 Intake Total 1850 Output Total 625 425 Balance 1225 -425 Weight 81 kg Intake: IV 1400 Sodium Chloride 0.9% 1, 1400 000 ml @ 150 mls/hr IV . Q6H40M [facility] Rx#:[id number] Oral 450 Output: Urine 625 425 Other: Voiding Method External Catheter External Catheter External Catheter # Bowel Movements 2 - Exam GENERAL DESCRIPTION: An elderly male lying in bed in no distress RESPIRATORY SYSTEM: Unlabored breathing , coarse breath sounds bilaterally HEART: S1 S2 regular rate and rhythm , ABDOMEN: Soft , no tenderness EXTREMITIES: Bilateral lower extremity with some swelling and superficial ulceration - Labs CBC & Chem 7: 01/19/24 04:58 01/19/24 04:58 Labs: Abnormal Lab Results - Last 24 Hours (Table) 01/17/24 01/17/24 01/18/24 Range/Units 16:07 21:32 05:37 POC Glucose (mg/dL) 172 H 204 H 156 H (70-110) mg/dL 05/13/24 Range/Units 12:02 POC Glucose (mg/dL) 230 H (70-110) mg/dL Assessment and Plan (1) Urinary tract infection Current Visit: Yes Status: Acute Code(s): N39.0 - URINARY TRACT INFECTION, SITE NOT SPECIFIED SNOMED Code(s): 32876951 (2) Pneumonia Current Visit: Yes Status: Acute Code(s): J18.9 - PNEUMONIA, UNSPECIFIED ORGANISM SNOMED Code(s): 150464198 Plan: 1patient presented to hospital with generalized weakness which is likely multifactorial patient did have some urinary symptoms positive UA concerning for symptomatic UTI with a last urine culture positive for Klebsiella that was intermediate to Unasyn 2-patient also have abnormal CT of the chest concerning for masslike consolidation and lymphadenopathy concerning for possible malignancy, in this patient who did have a diagnosis of lung cancer last year but did not have any follow-up pulmonary and oncology following the patient 3patient urine culture grew Klebsiella that is sensitive to ceftriaxone 4-patient is afebrile and the patient noticed to have worsening of the white count question of thrush/oropharyngeal candidiasis we will add nystatin swish and swallow and Diflucan and repeat a CBC with a.m. lab discussed with admitting physician Dictation was produced using [employer] dictation software. please excuse any grammatical, word or spelling errors. Time with Patient: Less than 30
--- NOTE | 2024-01-19 16:22 | P.PN ---
Subjective Progress Note Date: 01/19/24 Principal diagnosis: Reason for follow-up is urinary tract infection Patient is a 68-year-old male with a past medical history significant for diabetes mellitus hypertension CVA TIA COPD current everyday smoker presenting to the hospital for evaluation of increased weakness and difficulty breathing, patient did have elevated white count did have a positive UA concer shahana for possible drug-resistant UTI prompting this consultation. Patient also have abnormal CT of the chest with masslike consolidation apparently has been diagnosed with the lung cancer last year as per discussion with the pulmonary. On today's evaluation that is 01/19/2024,the patient did have a low-grade fever 100.1 this afternoon patient is breathing comfortably today denies current oxygen denies any chest pain or shortness of breath denies any worsening cough no nausea vomiting abdominal pain or diarrhea. Patient white count normalized to 10.70, creatinine 1.0 Objective - Vital Signs Vital signs: Vital Signs Temp 100.1 F H 01/19/24 14:00 Pulse 60 01/19/24 14:00 Resp 17 01/19/24 14:00 BP 112/53 01/19/24 14:00 Pulse Ox 96 01/19/24 14:00 FiO2 40 01/17/24 04:00 Intake & Output 01/18/24 01/19/24 01/19/24 18:59 06:59 18:59 Output Total 600 1000 Balance -600 -1000 Weight 81 kg Output: Urine 600 1000 Other: Voiding Method External Catheter External Catheter External Catheter - Exam GENERAL DESCRIPTION: An elderly male lying in bed in no distress RESPIRATORY SYSTEM: Unlabored breathing , coarse breath sounds bilaterally HEART: S1 S2 regular rate and rhythm , ABDOMEN: Soft , no tenderness EXTREMITIES: Bilateral lower extremity with some swelling and superficial ulceration - Labs CBC & Chem 7: 01/19/24 04:58 01/19/24 04:58 Labs: Abnormal Lab Results - Last 24 Hours (Table) 01/18/24 01/18/24 01/19/24 Range/Units 16:34 20:27 04:58 WBC (4.50-10.00) X 10*3/uL RBC (4.40-5.60) X 10*6/uL Hgb (13.0-17.0) g/dL Hct (39.6-50.0) % MCH (27.0-32.0) pg MCHC (32.0-37.0) g/dL RDW (11.5-14.5) % Neutrophils # (1.80-7.70) X 10*3/uL Potassium (3.5-5.5) mmol/L Chloride (96-109) mmol/L Carbon Dioxide (21.6-31.8) mmol/L BUN (9.0-27.0) mg/dL BUN/Creatinine Ratio (12.00-20.00) Ratio Glucose (70-110) mg/dL POC Glucose (mg/dL) 193 H 229 H (70-110) mg/dL Calcium (8.7-10.3) mg/dL Total Bilirubin (0.3-1.2) mg/dL C-Reactive Protein (0.00-0.80) mg/dL Total Protein (6.2-8.2) g/dL Albumin (3.8-4.9) g/dL Albumin/Globulin Ratio (1.60-3.17) Ratio Procalcitonin 0.30 H (0.02-0.09) ng/mL 01/19/24 01/19/24 01/19/24 Range/Units 04:58 04:58 06:15 WBC 10.70 H (4.50-10.00) X 10*3/uL RBC 4.21 L (4.40-5.60) X 10*6/uL Hgb 9.6 L (13.0-17.0) g/dL Hct 34.2 L (39.6-50.0) % MCH 22.8 L (27.0-32.0) pg MCHC 28.1 L (32.0-37.0) g/dL RDW 25.5 H (11.5-14.5) % Neutrophils # 8.45 H (1.80-7.70) X 10*3/uL Potassium 3.3 L (3.5-5.5) mmol/L Chloride 93 L (96-109) mmol/L Carbon Dioxide 36.2 H (21.6-31.8) mmol/L BUN 58.2 H (9.0-27.0) mg/dL BUN/Creatinine Ratio 58.20 H (12.00-20.00) Ratio Glucose 126 H (70-110) mg/dL POC Glucose (mg/dL) 150 H (70-110) mg/dL Calcium 8.6 L (8.7-10.3) mg/dL Total Bilirubin 0.2 L (0.3-1.2) mg/dL C-Reactive Protein 9.70 H (0.00-0.80) mg/dL Total Protein 5.7 L (6.2-8.2) g/dL Albumin 3.0 L (3.8-4.9) g/dL Albumin/Globulin Ratio 1.11 L (1.60-3.17) Ratio Procalcitonin (0.02-0.09) ng/mL 01/19/24 01/19/24 Range/Units 11:10 16:03 WBC (4.50-10.00) X 10*3/uL RBC (4.40-5.60) X 10*6/uL Hgb (13.0-17.0) g/dL Hct (39.6-50.0) % MCH (27.0-32.0) pg MCHC (32.0-37.0) g/dL RDW (11.5-14.5) % Neutrophils # (1.80-7.70) X 10*3/uL Potassium (3.5-5.5) mmol/L Chloride (96-109) mmol/L Carbon Dioxide (21.6-31.8) mmol/L BUN (9.0-27.0) mg/dL BUN/Creatinine Ratio (12.00-20.00) Ratio Glucose (70-110) mg/dL POC Glucose (mg/dL) 214 H 288 H (70-110) mg/dL Calcium (8.7-10.3) mg/dL Total Bilirubin (0.3-1.2) mg/dL C-Reactive Protein (0.00-0.80) mg/dL Total Protein (6.2-8.2) g/dL Albumin (3.8-4.9) g/dL Albumin/Globulin Ratio (1.60-3.17) Ratio Procalcitonin (0.02-0.09) ng/mL Assessment and Plan (1) Urinary tract infection Current Visit: Yes Status: Acute Code(s): N39.0 - URINARY TRACT INFECTION, SITE NOT SPECIFIED SNOMED Code(s): 14189334 (2) Pneumonia Current Visit: Yes Status: Acute Code(s): J18.9 - PNEUMONIA, UNSPECIFIED ORGANISM SNOMED Code(s): 244838520 Plan: 1patient presented to hospital with generalized weakness which is likely multifactorial patient did have some urinary symptoms positive UA concerning for symptomatic UTI with a last urine culture positive for Klebsiella that was intermediate to Unasyn 2-patient also have abnormal CT of the chest concerning for masslike consolidation and lymphadenopathy concerning for possible malignancy, in this patient who did have a diagnosis of lung cancer last year but did not have any follow-up pulmonary and oncology following the patient 3patient urine culture grew Klebsiella that is sensitive to ceftriaxone 4-patient is afebrile and the patient did have improvement the white count with addition of nystatin swish and swallow along with Diflucan to continue however the patient did have low-grade fever repeat a blood culture check a chest x-ray Dictation was produced using [employer] dictation software. please excuse any grammatical, word or spelling errors. Time with Patient: Less than 30
--- NOTE | 2024-01-19 17:30 | P.PN ---
Subjective Progress Note Date: 01/19/24 CHIEF COMPLAINT: Anemia HISTORY OF PRESENT ILLNESS: Patient is status post EGD revealing antral gastritis. Patient is status post colonoscopy that reported diverticulosis. no new complaints. PHYSICAL EXAM: VITAL SIGNS: Reviewed. GENERAL: no acute distress. ABDOMEN: Soft. Nondistended. Nontender. ASSESSMENT: 1. Anemia. Status post EGD revealing antral gastritis. Colonoscopy with diverticulosis. No active bleeding. 2. Lung Cancer PLAN: -Continue supportive care -Patient can be discharged from surgical standpoint when medically cleared -Continue Protonix at discharge -rate manager working on arranging possible discharge Physician Operations And Maintenance Supervisor note has been reviewed by physician. Signing provider agrees with the documented findings, assessment, and plan of care. Objective - Vital Signs Vital signs: Vital Signs Temp 100.1 F H 01/19/24 14:00 Pulse 60 01/19/24 14:00 Resp 17 01/19/24 14:00 BP 112/53 01/19/24 14:00 Pulse Ox 96 01/19/24 14:00 FiO2 40 01/17/24 04:00 Intake & Output 01/18/24 01/19/24 01/19/24 18:59 06:59 18:59 Output Total 600 1000 Balance -600 -1000 Weight 81 kg Output: Urine 600 1000 Other: Voiding Method External Catheter External Catheter External Catheter - Labs CBC & Chem 7: 01/19/24 04:58 01/19/24 04:58 Labs: Abnormal Lab Results - Last 24 Hours (Table) 01/18/24 01/19/24 01/19/24 Range/Units 20:27 04:58 04:58 WBC 10.70 H (4.50-10.00) X 10*3/uL RBC 4.21 L (4.40-5.60) X 10*6/uL Hgb 9.6 L (13.0-17.0) g/dL Hct 34.2 L (39.6-50.0) % MCH 22.8 L (27.0-32.0) pg MCHC 28.1 L (32.0-37.0) g/dL RDW 25.5 H (11.5-14.5) % Neutrophils # 8.45 H (1.80-7.70) X 10*3/uL Potassium (3.5-5.5) mmol/L Chloride (96-109) mmol/L Carbon Dioxide (21.6-31.8) mmol/L BUN (9.0-27.0) mg/dL BUN/Creatinine Ratio (12.00-20.00) Ratio Glucose (70-110) mg/dL POC Glucose (mg/dL) 229 H (70-110) mg/dL Calcium (8.7-10.3) mg/dL Total Bilirubin (0.3-1.2) mg/dL C-Reactive Protein (0.00-0.80) mg/dL Total Protein (6.2-8.2) g/dL Albumin (3.8-4.9) g/dL Albumin/Globulin Ratio (1.60-3.17) Ratio Procalcitonin 0.30 H (0.02-0.09) ng/mL 01/19/24 01/19/24 01/19/24 Range/Units 04:58 06:15 11:10 WBC (4.50-10.00) X 10*3/uL RBC (4.40-5.60) X 10*6/uL Hgb (13.0-17.0) g/dL Hct (39.6-50.0) % MCH (27.0-32.0) pg MCHC (32.0-37.0) g/dL RDW (11.5-14.5) % Neutrophils # (1.80-7.70) X 10*3/uL Potassium 3.3 L (3.5-5.5) mmol/L Chloride 93 L (96-109) mmol/L Carbon Dioxide 36.2 H (21.6-31.8) mmol/L BUN 58.2 H (9.0-27.0) mg/dL BUN/Creatinine Ratio 58.20 H (12.00-20.00) Ratio Glucose 126 H (70-110) mg/dL POC Glucose (mg/dL) 150 H 214 H (70-110) mg/dL Calcium 8.6 L (8.7-10.3) mg/dL Total Bilirubin 0.2 L (0.3-1.2) mg/dL C-Reactive Protein 9.70 H (0.00-0.80) mg/dL Total Protein 5.7 L (6.2-8.2) g/dL Albumin 3.0 L (3.8-4.9) g/dL Albumin/Globulin Ratio 1.11 L (1.60-3.17) Ratio Procalcitonin (0.02-0.09) ng/mL 01/19/24 Range/Units 16:03 WBC (4.50-10.00) X 10*3/uL RBC (4.40-5.60) X 10*6/uL Hgb (13.0-17.0) g/dL Hct (39.6-50.0) % MCH (27.0-32.0) pg MCHC (32.0-37.0) g/dL RDW (11.5-14.5) % Neutrophils # (1.80-7.70) X 10*3/uL Potassium (3.5-5.5) mmol/L Chloride (96-109) mmol/L Carbon Dioxide (21.6-31.8) mmol/L BUN (9.0-27.0) mg/dL BUN/Creatinine Ratio (12.00-20.00) Ratio Glucose (70-110) mg/dL POC Glucose (mg/dL) 288 H (70-110) mg/dL Calcium (8.7-10.3) mg/dL Total Bilirubin (0.3-1.2) mg/dL C-Reactive Protein (0.00-0.80) mg/dL Total Protein (6.2-8.2) g/dL Albumin (3.8-4.9) g/dL Albumin/Globulin Ratio (1.60-3.17) Ratio Procalcitonin (0.02-0.09) ng/mL
--- NOTE | 2024-01-19 17:48 | XR ---
EXAMINATION TYPE: XR chest 2V DATE OF EXAM: 01/19/2024 COMPARISON: 01/17/2024 HISTORY: 68-year-old male with fever TECHNIQUE: AP and lateral views FINDINGS: The heart is enlarged. Lower right anterior tracheal and right hilar prominence. Diffuse interstitial density. Patchy opacity right base. Trace bilateral pleural effusions. IMPRESSION: 1. Cardiomegaly with interstitial prominence and trace pleural effusion. Consider CHF with pulmonary vascular congestion. 2. Right hilar soft tissue could reflect underlying pulmonary arterial hypertension, lymphadenopathy, or mass. 3. More confluent patchy pulmonary edema versus airspace disease at the right base.
[2024-01-19] MEDS ORDERED: TOLVAPTAN 15 MG TABLET PO ONE (19:02)
[2024-01-19 20:06] LABS: Glucose,Whole Blood 176 mg/dL (70-110)
[2024-01-20 06:02] LABS: Glucose,Whole Blood 185 mg/dL (70-110)
[2024-01-20 10:27] LABS: Basophils # (A) 0.05 X 10*3/uL (0.00-0.10); Basophils % (A) 0.5 %; Eosinophils # (A) 0.08 X 10*3/uL (0.04-0.35); Eosinophils % (A) 0.7 %; HCT 35.9 % (39.6-50.0); HGB 10.1 g/dL (13.0-17.0); Lymphocytes # (A) 1.31 X 10*3/uL (0.90-5.00); Lymphocytes % (A) 12.1 %; MCH 22.7 pg (27.0-32.0); MCHC 28.1 g/dL (32.0-37.0); MCV 80.7 FL (80.0-97.0); Monocytes # (A) 1.01 X 10*3/uL (0.20-1.00); Monocytes % (A) 9.3 %; NRBC Per 100 WBC 0 X 10*3/uL (0.00-0.01); Neutrophils # (A) 8.36 X 10*3/uL (1.80-7.70); Neutrophils % (A) 77.1 %; Platelet Count 294 X 10*3/uL (140-440); RBC 4.45 X 10*6/uL (4.40-5.60); RDW 24.8 % (11.5-14.5); WBC 10.84 X 10*3/uL (4.50-10.00)
[2024-01-20 10:41] LABS: ALT 13 U/L (10-49); AST 16 U/L (14-35); Albumin 3.1 g/dL (3.8-4.9); Albumin/Globulin Ratio 1.07 Ratio (1.60-3.17); Alkaline Phosphatase 112 U/L (41-126); Blood Urea Nitrogen 49.1 mg/dL (9.0-27.0); Calcium 9.2 mg/dL (8.7-10.3); Carbon Dioxide 35.3 mmol/L (21.6-31.8); Chloride 91 mmol/L (96-109); Globulin 2.9 g/dL (1.6-3.3); Glucose 130 mg/dL (70-110); Potassium 3.6 mmol/L (3.5-5.5); Sodium 142 mmol/L (135-145); Total Bilirubin 0.3 mg/dL (0.3-1.2)
--- NOTE | 2024-01-20 10:43 | P.PN ---
Subjective Progress Note Date: 01/19/24 Patient was seen for a follow-up. Patient offers no new complaints. 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 Patient offers no new complaints. Objective - Vital Signs Vital signs: Vital Signs Temp 100.1 F H 01/19/24 14:00 Pulse 60 01/19/24 14:00 Resp 17 01/19/24 14:00 BP 112/53 01/19/24 14:00 Pulse Ox 96 01/19/24 14:00 FiO2 40 01/17/24 04:00 Intake & Output 01/18/24 01/19/24 01/19/24 18:59 06:59 18:59 Output Total 600 1000 Balance -600 -1000 Weight 81 kg Output: Urine 600 1000 Other: Voiding Method External Catheter External Catheter External Catheter - Exam Patient is alert and awake. He states it is December and the year is 2013. He knows that he is not "around [facility] in [place]. Cranial nerves are normal. On muscle strength testing The strength is completely normal in the arms distally and proximally. In the lower limbs (right/left) hip flexion 2/2, ankle dorsiflexion 5/5. He can wiggle his toes and feet very well. Patient has wounds on his toes, and right abdul has wounds with scabs. - Labs CBC & Chem 7: 01/20/24 05:01 01/19/24 04:58 Labs: Abnormal Lab Results - Last 24 Hours (Table) 01/18/24 01/19/24 01/19/24 Range/Units 20:27 04:58 04:58 WBC 10.70 H (4.50-10.00) X 10*3/uL RBC 4.21 L (4.40-5.60) X 10*6/uL Hgb 9.6 L (13.0-17.0) g/dL Hct 34.2 L (39.6-50.0) % MCH 22.8 L (27.0-32.0) pg MCHC 28.1 L (32.0-37.0) g/dL RDW 25.5 H (11.5-14.5) % Neutrophils # 8.45 H (1.80-7.70) X 10*3/uL Potassium (3.5-5.5) mmol/L Chloride (96-109) mmol/L Carbon Dioxide (21.6-31.8) mmol/L BUN (9.0-27.0) mg/dL BUN/Creatinine Ratio (12.00-20.00) Ratio Glucose (70-110) mg/dL POC Glucose (mg/dL) 229 H (70-110) mg/dL Calcium (8.7-10.3) mg/dL Total Bilirubin (0.3-1.2) mg/dL C-Reactive Protein (0.00-0.80) mg/dL Total Protein (6.2-8.2) g/dL Albumin (3.8-4.9) g/dL Albumin/Globulin Ratio (1.60-3.17) Ratio Procalcitonin 0.30 H (0.02-0.09) ng/mL 01/19/24 01/19/24 01/19/24 Range/Units 04:58 06:15 11:10 WBC (4.50-10.00) X 10*3/uL RBC (4.40-5.60) X 10*6/uL Hgb (13.0-17.0) g/dL Hct (39.6-50.0) % MCH (27.0-32.0) pg MCHC (32.0-37.0) g/dL RDW (11.5-14.5) % Neutrophils # (1.80-7.70) X 10*3/uL Potassium 3.3 L (3.5-5.5) mmol/L Chloride 93 L (96-109) mmol/L Carbon Dioxide 36.2 H (21.6-31.8) mmol/L BUN 58.2 H (9.0-27.0) mg/dL BUN/Creatinine Ratio 58.20 H (12.00-20.00) Ratio Glucose 126 H (70-110) mg/dL POC Glucose (mg/dL) 150 H 214 H (70-110) mg/dL Calcium 8.6 L (8.7-10.3) mg/dL Total Bilirubin 0.2 L (0.3-1.2) mg/dL C-Reactive Protein 9.70 H (0.00-0.80) mg/dL Total Protein 5.7 L (6.2-8.2) g/dL Albumin 3.0 L (3.8-4.9) g/dL Albumin/Globulin Ratio 1.11 L (1.60-3.17) Ratio Procalcitonin (0.02-0.09) ng/mL 01/19/24 Range/Units 16:03 WBC (4.50-10.00) X 10*3/uL RBC (4.40-5.60) X 10*6/uL Hgb (13.0-17.0) g/dL Hct (39.6-50.0) % MCH (27.0-32.0) pg MCHC (32.0-37.0) g/dL RDW (11.5-14.5) % Neutrophils # (1.80-7.70) X 10*3/uL Potassium (3.5-5.5) mmol/L Chloride (96-109) mmol/L Carbon Dioxide (21.6-31.8) mmol/L BUN (9.0-27.0) mg/dL BUN/Creatinine Ratio (12.00-20.00) Ratio Glucose (70-110) mg/dL POC Glucose (mg/dL) 288 H (70-110) mg/dL Calcium (8.7-10.3) mg/dL Total Bilirubin (0.3-1.2) mg/dL C-Reactive Protein (0.00-0.80) mg/dL Total Protein (6.2-8.2) g/dL Albumin (3.8-4.9) g/dL Albumin/Globulin Ratio (1.60-3.17) Ratio Procalcitonin (0.02-0.09) ng/mL Assessment and Plan Assessment: * Altered mental status, likely due to acute metabolic encephalopathy. Patient's mentation improved. Reasons multifactorial as mentioned below. * Hypoxemia, elevated pCO2 * UTI * Pneumonia * Mild hyponatremia, resolved * Elevated BUN, slightly improving, most recent 58.2 * History of non-small cell lung cancer, diagnosed at [facility]. Patient apparently did not receive treatment. * Post obstructive pneumonitis, on antibiotics. * Diabetes * Chronic bilateral lower extremity weakness, wheelchair-bound for the last 6 months. * History of back surgeries * Tobacco use Plan: * Patient probably has metabolic encephalopathy. CT head showed no acute process. * B12 413, MMA 0.27, folate 8.5, TSH 2.75. All normal. * Hemoglobin A1c 6.8. Diabetes well-controlled. * Patient has been treated for possible UTI and pneumonia. Currently off antibiotics. ID following. Patient on Diflucan. * Patient also has possible PAD, vascular surgery on board. * CT of the lumbar spine showed no evidence for spinal fracture. Postsurgical changes of the spine with spinal canal. Moderate to severe degenerative change changes with moderate multilevel neural foraminal stenosis bilaterally. 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 * Recommend EMG and nerve conduction of lower extremity outpatient to rule out diabetic neuropathy/radiculopathy
[2024-01-20 11:49] LABS: Glucose,Whole Blood 214 mg/dL (70-110)
--- NOTE | 2024-01-20 15:24 | P.PN ---
Subjective Progress Note Date: 01/20/24 CHIEF COMPLAINT: Anemia HISTORY OF PRESENT ILLNESS: Patient is status post EGD revealing antral gastritis. Patient is status post colonoscopy that reported diverticulosis. no new complaints. Hemoglobin stable at 10.1 PHYSICAL EXAM: VITAL SIGNS: Reviewed. GENERAL: no acute distress. ABDOMEN: Soft. Nondistended. Nontender. ASSESSMENT: 1. Anemia. Status post EGD revealing antral gastritis. Colonoscopy with diverticulosis. No active bleeding. 2. Lung Cancer PLAN: -Continue supportive care -Patient can be discharged from surgical standpoint when medically cleared -Continue Protonix at discharge -senior safety support manager working on arranging possible discharge Physician Money Market Clerk note has been reviewed by physician. Signing provider agrees with the documented findings, assessment, and plan of care. Objective - Vital Signs Vital signs: Vital Signs Temp 98.3 F 01/20/24 14:00 Pulse 75 01/20/24 14:00 Resp 18 01/20/24 14:00 BP 118/55 01/20/24 14:00 Pulse Ox 94 L 01/20/24 14:00 FiO2 40 01/17/24 04:00 Intake & Output 01/19/24 01/20/24 01/20/24 18:59 06:59 18:59 Output Total 275 400 800 Balance -275 -400 -800 Weight 81 kg 79 kg Output: Urine 275 400 800 Other: Voiding Method External Catheter External Catheter External Catheter # Voids 1 # Bowel Movements 2 - Labs CBC & Chem 7: 01/20/24 05:01 01/20/24 05:01 Labs: Abnormal Lab Results - Last 24 Hours (Table) 01/19/24 01/19/24 01/20/24 Range/Units 16:03 20:05 05:01 WBC 10.84 H (4.50-10.00) X 10*3/uL Hgb 10.1 L (13.0-17.0) g/dL Hct 35.9 L (39.6-50.0) % MCH 22.7 L (27.0-32.0) pg MCHC 28.1 L (32.0-37.0) g/dL RDW 24.8 H (11.5-14.5) % Neutrophils # 8.36 H (1.80-7.70) X 10*3/uL Monocytes # 1.01 H (0.20-1.00) X 10*3/uL Chloride (96-109) mmol/L Carbon Dioxide (21.6-31.8) mmol/L Anion Gap (4.00-12.00) mmol/L BUN (9.0-27.0) mg/dL BUN/Creatinine Ratio (12.00-20.00) Ratio Glucose (70-110) mg/dL POC Glucose (mg/dL) 288 H 176 H (70-110) mg/dL Total Protein (6.2-8.2) g/dL Albumin (3.8-4.9) g/dL Albumin/Globulin Ratio (1.60-3.17) Ratio 01/20/24 01/20/24 01/20/24 Range/Units 05:01 06:01 11:47 WBC (4.50-10.00) X 10*3/uL Hgb (13.0-17.0) g/dL Hct (39.6-50.0) % MCH (27.0-32.0) pg MCHC (32.0-37.0) g/dL RDW (11.5-14.5) % Neutrophils # (1.80-7.70) X 10*3/uL Monocytes # (0.20-1.00) X 10*3/uL Chloride 91 L (96-109) mmol/L Carbon Dioxide 35.3 H (21.6-31.8) mmol/L Anion Gap 15.70 H (4.00-12.00) mmol/L BUN 49.1 H (9.0-27.0) mg/dL BUN/Creatinine Ratio 49.10 H (12.00-20.00) Ratio Glucose 130 H (70-110) mg/dL POC Glucose (mg/dL) 185 H 214 H (70-110) mg/dL Total Protein 6.0 L (6.2-8.2) g/dL Albumin 3.1 L (3.8-4.9) g/dL Albumin/Globulin Ratio 1.07 L (1.60-3.17) Ratio
[2024-01-20 17:14] LABS: Glucose,Whole Blood 218 mg/dL (70-110)
[2024-01-20 20:41] LABS: Glucose,Whole Blood 252 mg/dL (70-110)
--- NOTE | 2024-01-21 05:10 | PN ---
PROGRESS NOTE SUBJECTIVE: A 68-year-old white male, cardiomegaly, interstitial prominence perfusion, CHF on chest x-ray, however, soft tissue, pulmonary hypertension, confluent pulmonary edema versus airspace disease of the right lung base. The patient is to be seen by infectious disease doctor. He is seen by Dr. Hooker's crew. White count is down to 10.7, hemoglobin is 9.6. He has UTI, pneumonia. Urine culture, Klebsiella. He is on nystatin for thrush. Continue with swish and swallow, Diflucan to continue with hemoglobin, heparin subcu was discontinued due to lowering hemoglobin count into 9 from 11. Prognosis guarded. Please see further orders. Continue his breathing treatments, oxygen 24 hours a day, etc. Prognosis guarded. MMODL / IJN: [id number] /
[2024-01-21 05:43] LABS: Glucose,Whole Blood 271 mg/dL (70-110)
[2024-01-21 08:52] LABS: Basophils # (A) 0.04 X 10*3/uL (0.00-0.10); Basophils % (A) 0.4 %; Eosinophils # (A) 0.07 X 10*3/uL (0.04-0.35); Eosinophils % (A) 0.7 %; HCT 35.5 % (39.6-50.0); HGB 10.3 g/dL (13.0-17.0); Lymphocytes # (A) 1.08 X 10*3/uL (0.90-5.00); MCH 23.4 pg (27.0-32.0); MCV 80.7 FL (80.0-97.0); Mean Platelet Volume 11.3 FL (9.5-12.2); Monocytes # (A) 0.74 X 10*3/uL (0.20-1.00); Monocytes % (A) 7.6 %; NRBC Per 100 WBC 0 X 10*3/uL (0.00-0.01); Neutrophils # (A) 7.83 X 10*3/uL (1.80-7.70); Platelet Count 263 X 10*3/uL (140-440); RDW 24.6 % (11.5-14.5); WBC 9.79 X 10*3/uL (4.50-10.00)
[2024-01-21 09:46] LABS: BUN/Creat Ratio 45.55 Ratio (12.00-20.00); Blood Urea Nitrogen 50.1 mg/dL (9.0-27.0); Chloride 91 mmol/L (96-109); Glucose 218 mg/dL (70-110); Potassium 3.3 mmol/L (3.5-5.5); Sodium 141 mmol/L (135-145)
[2024-01-21 09:47] LABS: ALT 11 U/L (10-49); AST 11 U/L (14-35); Alkaline Phosphatase 111 U/L (41-126); Calcium 8.8 mg/dL (8.7-10.3); Total Bilirubin <0.2 mg/dL (0.3-1.2)
--- NOTE | 2024-01-21 10:53 | P.PN ---
Progress Note - Text Progress Note Date: 01/21/24 Contacted guardian to discuss patient's case from an oncology perspective. Did let them know that patient has been seen at [facility] previously as it is my impression that the patient is going to be living closer to that area. Contact information was given to them if they had any further questions for Oncology.
[2024-01-21 10:58] LABS: Glucose,Whole Blood 202 mg/dL (70-110)
--- NOTE | 2024-01-21 11:34 | P.PN ---
Subjective Progress Note Date: 01/21/24 CHIEF COMPLAINT: Anemia HISTORY OF PRESENT ILLNESS: Patient is status post EGD revealing antral gastritis. Patient is status post colonoscopy that reported diverticulosis. no new complaints. Hemoglobin stable at 10.3 PHYSICAL EXAM: VITAL SIGNS: Reviewed. GENERAL: no acute distress. ABDOMEN: Soft. Nondistended. Nontender. ASSESSMENT: 1. Anemia. Status post EGD revealing antral gastritis. Colonoscopy with diverticulosis. No active bleeding. 2. Lung Cancer PLAN: -Continue supportive care -Patient can be discharged from surgical standpoint when medically cleared -Continue Protonix at discharge -call center operations manager working on arranging possible discharge Physician Police Patrol Officer note has been reviewed by physician. Signing provider agrees with the documented findings, assessment, and plan of care. Objective - Vital Signs Vital signs: Vital Signs Temp 100 F H 01/21/24 07:39 Pulse 67 01/21/24 09:19 Resp 17 01/21/24 07:39 BP 151/61 01/21/24 07:39 Pulse Ox 92 L 01/21/24 09:10 FiO2 40 01/17/24 04:00 Intake & Output 01/20/24 01/21/24 01/21/24 18:59 06:59 18:59 Intake Total 200 Output Total 1000 1800 Balance -800 -1800 Intake: Oral 200 Output: Urine 1000 1800 Other: Voiding Method External Catheter External Catheter External Catheter # Bowel Movements 2 - Labs CBC & Chem 7: 01/21/24 05:25 01/21/24 05:25 Labs: Abnormal Lab Results - Last 24 Hours (Table) 01/20/24 01/20/24 01/20/24 Range/Units 11:47 17:13 20:40 Hgb (13.0-17.0) g/dL Hct (39.6-50.0) % MCH (27.0-32.0) pg MCHC (32.0-37.0) g/dL RDW (11.5-14.5) % Neutrophils # (1.80-7.70) X 10*3/uL Potassium (3.5-5.5) mmol/L Chloride (96-109) mmol/L Carbon Dioxide (21.6-31.8) mmol/L BUN (9.0-27.0) mg/dL BUN/Creatinine Ratio (12.00-20.00) Ratio Glucose (70-110) mg/dL POC Glucose (mg/dL) 214 H 218 H 252 H (70-110) mg/dL Total Bilirubin (0.3-1.2) mg/dL AST (14-35) U/L Total Protein (6.2-8.2) g/dL Albumin (3.8-4.9) g/dL Albumin/Globulin Ratio (1.60-3.17) Ratio 01/21/24 01/21/24 01/21/24 Range/Units 05:25 05:25 05:40 Hgb 10.3 L (13.0-17.0) g/dL Hct 35.5 L (39.6-50.0) % MCH 23.4 L (27.0-32.0) pg MCHC 29.0 L (32.0-37.0) g/dL RDW 24.6 H (11.5-14.5) % Neutrophils # 7.83 H (1.80-7.70) X 10*3/uL Potassium 3.3 L (3.5-5.5) mmol/L Chloride 91 L (96-109) mmol/L Carbon Dioxide 38.0 H (21.6-31.8) mmol/L BUN 50.1 H (9.0-27.0) mg/dL BUN/Creatinine Ratio 45.55 H (12.00-20.00) Ratio Glucose 218 H (70-110) mg/dL POC Glucose (mg/dL) 271 H (70-110) mg/dL Total Bilirubin <0.2 L (0.3-1.2) mg/dL AST 11 L (14-35) U/L Total Protein 6.0 L (6.2-8.2) g/dL Albumin 3.0 L (3.8-4.9) g/dL Albumin/Globulin Ratio 1.00 L (1.60-3.17) Ratio 01/21/24 Range/Units 10:55 Hgb (13.0-17.0) g/dL Hct (39.6-50.0) % MCH (27.0-32.0) pg MCHC (32.0-37.0) g/dL RDW (11.5-14.5) % Neutrophils # (1.80-7.70) X 10*3/uL Potassium (3.5-5.5) mmol/L Chloride (96-109) mmol/L Carbon Dioxide (21.6-31.8) mmol/L BUN (9.0-27.0) mg/dL BUN/Creatinine Ratio (12.00-20.00) Ratio Glucose (70-110) mg/dL POC Glucose (mg/dL) 202 H (70-110) mg/dL Total Bilirubin (0.3-1.2) mg/dL AST (14-35) U/L Total Protein (6.2-8.2) g/dL Albumin (3.8-4.9) g/dL Albumin/Globulin Ratio (1.60-3.17) Ratio Microbiology - Last 24 Hours (Table) 01/19/24 17:26 Blood Culture - Preliminary Blood
--- NOTE | 2024-01-21 13:19 | DS ---
DISCHARGE SUMMARY DIAGNOSES: Congestive heart failure, difficulty walking, microcytic hypochromic anemia, non-small cell lung cancer, acute on chronic diastolic heart failure, chronic obstructive pulmonary disease, aspiration pneumonia, peripheral artery disease of significant nature, status post lumbar radiculopathy, severe leg weakness. His leg swelling went down with increased diuresis. His sugars are improved. MEDICATIONS: 1. We added Zaroxolyn once a day to help his leg swelling. 2. He needs to wear oxygen 24 hours a day 2 L and do his breathing treatments, Duoneb b.i.d. 3. Aspirin 81 daily. 4. Gabapentin 800 q.i.d. 5. Ragland 5/325 b.i.d. 6. Lasix 40 mg b.i.d. 7. Singulair 10 daily. 8. Prandin 1 mg t.i.d. 9. Lipitor 40 daily. 10.DuoNeb q.i.d. 11.Pulmicort 0.5 b.i.d. 12.Janumet 50 b.i.d. 13.Actos 15 mg daily. 14.He has developed some thrush, for which he takes nystatin oral solution 500,000 units 5 mL q.i.d. 15.Diflucan 100 mg daily for 7 days. 16.Loratadine 10 mg daily. 17.Midodrine 10 mg before meals t.i.d. 18.Atorvastatin 40 mg daily. 19.Atenolol 50 mg b.i.d. 20.Aspirin 81 daily. 21.Tylenol p.r.n. 22.Metolazone 2.5 daily. 23.Farxiga 5 mg daily. 24.Budesonide 0.5 mg nebulizer b.i.d. 25.Zinc daily. Follow up with Dr. Keys for treatment of his lung cancer, who put him for chemotherapy. Follow up with Dr. Arnold up in [place] for cervical surgery on his neck, which he is supposed to get next week or 2. Followup with Dr. Graham for general care. Follow up with Dr. Turcios for PAD, severe, for which he will need surgery down the road also. Prognosis guarded. Condition stable. He came in initially for low hemoglobin, which has been stabilized. His blood thinners have been stopped as he had severe anemia from blood thinners. We will continue with current treatments as mentioned above. Cleared by multiple people for discharge. Followup as an outpatient. MMODL / IJN: [id number] /
[2024-01-21 14:11] VITALS: BP 129/82; PULSE 93; RESP 18; TEMP 98.1
--- NOTE | 2024-01-21 15:39 | P.PN ---
Subjective Progress Note Date: 01/20/24 Principal diagnosis: Reason for follow-up is urinary tract infection Patient is a 68-year-old male with a past medical history significant for diabetes mellitus hypertension CVA TIA COPD current everyday smoker presenting to the hospital for evaluation of increased weakness and difficulty breathing, patient did have elevated white count did have a positive UA concer shahana for possible drug-resistant UTI prompting this consultation. Patient also have abnormal CT of the chest with masslike consolidation apparently has been diagnosed with the lung cancer last year as per discussion with the pulmonary. On today's evaluation that is 01/20/2024,the patient remains to be afebrile, patient is on room air not requiring supplemental oxygen and denies any shortness of breath no chest pain or cough.Patient denies having any nausea or vomiting, no abdominal pain and no diarrhea has been reported. Patient white count is 10.84, creatinine is 1.0 Objective - Vital Signs Vital signs: Vital Signs Temp 98.3 F 01/20/24 14:00 Pulse 75 01/20/24 14:00 Resp 18 01/20/24 14:00 BP 118/55 01/20/24 14:00 Pulse Ox 94 L 01/20/24 14:00 FiO2 40 01/17/24 04:00 Intake & Output 01/19/24 01/20/24 01/20/24 18:59 06:59 18:59 Output Total 275 400 800 Balance -275 -400 -800 Weight 81 kg 79 kg Output: Urine 275 400 800 Other: Voiding Method External Catheter External Catheter External Catheter # Voids 1 # Bowel Movements 2 - Exam GENERAL DESCRIPTION: An elderly male lying in bed in no distress RESPIRATORY SYSTEM: Unlabored breathing , coarse breath sounds bilaterally HEART: S1 S2 regular rate and rhythm , ABDOMEN: Soft , no tenderness EXTREMITIES: Bilateral lower extremity with some swelling and superficial ulceration - Labs CBC & Chem 7: 01/21/24 05:25 01/21/24 05:25 Labs: Abnormal Lab Results - Last 24 Hours (Table) 01/19/24 01/20/24 01/20/24 Range/Units 20:05 05:01 05:01 WBC 10.84 H (4.50-10.00) X 10*3/uL Hgb 10.1 L (13.0-17.0) g/dL Hct 35.9 L (39.6-50.0) % MCH 22.7 L (27.0-32.0) pg MCHC 28.1 L (32.0-37.0) g/dL RDW 24.8 H (11.5-14.5) % Neutrophils # 8.36 H (1.80-7.70) X 10*3/uL Monocytes # 1.01 H (0.20-1.00) X 10*3/uL Chloride 91 L (96-109) mmol/L Carbon Dioxide 35.3 H (21.6-31.8) mmol/L Anion Gap 15.70 H (4.00-12.00) mmol/L BUN 49.1 H (9.0-27.0) mg/dL BUN/Creatinine Ratio 49.10 H (12.00-20.00) Ratio Glucose 130 H (70-110) mg/dL POC Glucose (mg/dL) 176 H (70-110) mg/dL Total Protein 6.0 L (6.2-8.2) g/dL Albumin 3.1 L (3.8-4.9) g/dL Albumin/Globulin Ratio 1.07 L (1.60-3.17) Ratio 01/20/24 01/20/24 Range/Units 06:01 11:47 WBC (4.50-10.00) X 10*3/uL Hgb (13.0-17.0) g/dL Hct (39.6-50.0) % MCH (27.0-32.0) pg MCHC (32.0-37.0) g/dL RDW (11.5-14.5) % Neutrophils # (1.80-7.70) X 10*3/uL Monocytes # (0.20-1.00) X 10*3/uL Chloride (96-109) mmol/L Carbon Dioxide (21.6-31.8) mmol/L Anion Gap (4.00-12.00) mmol/L BUN (9.0-27.0) mg/dL BUN/Creatinine Ratio (12.00-20.00) Ratio Glucose (70-110) mg/dL POC Glucose (mg/dL) 185 H 214 H (70-110) mg/dL Total Protein (6.2-8.2) g/dL Albumin (3.8-4.9) g/dL Albumin/Globulin Ratio (1.60-3.17) Ratio Assessment and Plan (1) Urinary tract infection Current Visit: Yes Status: Acute Code(s): N39.0 - URINARY TRACT INFECTION, SITE NOT SPECIFIED SNOMED Code(s): 53602969 (2) Pneumonia Current Visit: Yes Status: Acute Code(s): J18.9 - PNEUMONIA, UNSPECIFIED ORGANISM SNOMED Code(s): 183596830 Plan: 1patient presented to hospital with generalized weakness which is likely multifactorial patient did have some urinary symptoms positive UA concerning for symptomatic UTI with a last urine culture positive for Klebsiella that was intermediate to Unasyn 2-patient also have abnormal CT of the chest concerning for masslike consolidation and lymphadenopathy concerning for possible malignancy, in this patient who did have a diagnosis of lung cancer last year but did not have any follow-up pulmonary and oncology following the patient 3patient urine culture grew Klebsiella that is sensitive to ceftriaxone 4-patient is afebrile and the patient did have improvement the white count with addition of nystatin swish and swallow along with Diflucan which will be continued monitor clinical course closely Dictation was produced using [employer] dictation software. please excuse any grammatical, word or spelling errors. Time with Patient: Less than 30
--- NOTE | 2024-01-21 15:40 | P.PN ---
Subjective Progress Note Date: 01/21/24 Principal diagnosis: Reason for follow-up is urinary tract infection Patient is a 68-year-old male with a past medical history significant for diabetes mellitus hypertension CVA TIA COPD current everyday smoker presenting to the hospital for evaluation of increased weakness and difficulty breathing, patient did have elevated white count did have a positive UA concer shahana for possible drug-resistant UTI prompting this consultation. Patient also have abnormal CT of the chest with masslike consolidation apparently has been diagnosed with the lung cancer last year as per discussion with the pulmonary. On today's evaluation that is 01/21/2024, the patient did have a low-grade fever 100 F this morning the patient is afebrile since then, the patient is on room air and breathing comfortably, the Pt denies having any chest pain or cough, the patient denies having any abdominal pain no vomiting or any diarrhea has been reported by the nursing staff. Patient did have white count of 9.79, creatinine is 1.1 Objective - Vital Signs Vital signs: Vital Signs Temp 100 F H 01/21/24 07:39 Pulse 67 01/21/24 09:19 Resp 17 01/21/24 07:39 BP 151/61 01/21/24 07:39 Pulse Ox 92 L 01/21/24 09:10 FiO2 40 01/17/24 04:00 Intake & Output 01/20/24 01/21/24 01/21/24 18:59 06:59 18:59 Intake Total 200 Output Total 1000 1800 Balance -800 -1800 Intake: Oral 200 Output: Urine 1000 1800 Other: Voiding Method External Catheter External Catheter External Catheter # Bowel Movements 2 - Exam GENERAL DESCRIPTION: An elderly male lying in bed in no distress RESPIRATORY SYSTEM: Unlabored breathing , coarse breath sounds bilaterally HEART: S1 S2 regular rate and rhythm , ABDOMEN: Soft , no tenderness EXTREMITIES: Bilateral lower extremity with some swelling and superficial ulceration - Labs CBC & Chem 7: 01/21/24 05:25 01/21/24 05:25 Labs: Abnormal Lab Results - Last 24 Hours (Table) 01/20/24 01/20/24 01/20/24 Range/Units 11:47 17:13 20:40 Hgb (13.0-17.0) g/dL Hct (39.6-50.0) % MCH (27.0-32.0) pg MCHC (32.0-37.0) g/dL RDW (11.5-14.5) % Neutrophils # (1.80-7.70) X 10*3/uL Potassium (3.5-5.5) mmol/L Chloride (96-109) mmol/L Carbon Dioxide (21.6-31.8) mmol/L BUN (9.0-27.0) mg/dL BUN/Creatinine Ratio (12.00-20.00) Ratio Glucose (70-110) mg/dL POC Glucose (mg/dL) 214 H 218 H 252 H (70-110) mg/dL Total Bilirubin (0.3-1.2) mg/dL AST (14-35) U/L Total Protein (6.2-8.2) g/dL Albumin (3.8-4.9) g/dL Albumin/Globulin Ratio (1.60-3.17) Ratio 01/21/24 01/21/24 01/21/24 Range/Units 05:25 05:25 05:40 Hgb 10.3 L (13.0-17.0) g/dL Hct 35.5 L (39.6-50.0) % MCH 23.4 L (27.0-32.0) pg MCHC 29.0 L (32.0-37.0) g/dL RDW 24.6 H (11.5-14.5) % Neutrophils # 7.83 H (1.80-7.70) X 10*3/uL Potassium 3.3 L (3.5-5.5) mmol/L Chloride 91 L (96-109) mmol/L Carbon Dioxide 38.0 H (21.6-31.8) mmol/L BUN 50.1 H (9.0-27.0) mg/dL BUN/Creatinine Ratio 45.55 H (12.00-20.00) Ratio Glucose 218 H (70-110) mg/dL POC Glucose (mg/dL) 271 H (70-110) mg/dL Total Bilirubin <0.2 L (0.3-1.2) mg/dL AST 11 L (14-35) U/L Total Protein 6.0 L (6.2-8.2) g/dL Albumin 3.0 L (3.8-4.9) g/dL Albumin/Globulin Ratio 1.00 L (1.60-3.17) Ratio 01/21/24 Range/Units 10:55 Hgb (13.0-17.0) g/dL Hct (39.6-50.0) % MCH (27.0-32.0) pg MCHC (32.0-37.0) g/dL RDW (11.5-14.5) % Neutrophils # (1.80-7.70) X 10*3/uL Potassium (3.5-5.5) mmol/L Chloride (96-109) mmol/L Carbon Dioxide (21.6-31.8) mmol/L BUN (9.0-27.0) mg/dL BUN/Creatinine Ratio (12.00-20.00) Ratio Glucose (70-110) mg/dL POC Glucose (mg/dL) 202 H (70-110) mg/dL Total Bilirubin (0.3-1.2) mg/dL AST (14-35) U/L Total Protein (6.2-8.2) g/dL Albumin (3.8-4.9) g/dL Albumin/Globulin Ratio (1.60-3.17) Ratio Microbiology - Last 24 Hours (Table) 01/19/24 17:26 Blood Culture - Preliminary Blood Assessment and Plan (1) Urinary tract infection Current Visit: Yes Status: Acute Code(s): N39.0 - URINARY TRACT INFECTION, SITE NOT SPECIFIED SNOMED Code(s): 38386429 (2) Pneumonia Current Visit: Yes Status: Acute Code(s): J18.9 - PNEUMONIA, UNSPECIFIED ORGANISM SNOMED Code(s): 927033831 Plan: 1patient presented to hospital with generalized weakness which is likely multifactorial patient did have some urinary symptoms positive UA concerning for symptomatic UTI with a last urine culture positive for Klebsiella that was inter mediate to Unasyn 2-patient also have abnormal CT of the chest concerning for masslike consolidation and lymphadenopathy concerning for possible malignancy, in this patient who did have a diagnosis of lung cancer last year but did not have any follow-up pulmonary and oncology following the patient 3patient urine culture grew Klebsiella that is sensitive to ceftriaxone 4-patient is afebrile and the patient white count has normalized we will consider a 7-day course of nystatin swish and swallow and Augmentin on discharge Dictation was produced using [employer] dictation software. please excuse any grammatical, word or spelling errors. Time with Patient: Less than 30
[2024-01-21 16:15] LABS: Glucose,Whole Blood 307 mg/dL (70-110)
--- NOTE | 2024-01-22 21:03 | CDI ---
Documentation Clarification Form Date: 01/22/2024 08:36:18 PM From: Wanda Salinas Phone: Admit Date: 12/30/2023 04:20:00 PM Patient Name: Emre Borrego Visit Number: [id number] Discharge Date: 01/21/2024 07:14:00 PM ATTENTION: The Clinical Documentation Specialists (CDI) and [facility] Coding Staff appreciate your assistance in clarifying documentation. Please respond to the clarification below the line at the bottom and electronically sign. The CDI & [facility] Coding staff will review the response and follow-up if needed. Please note: Queries are made part of the Legal Health Record. If you have any questions, please contact the author of this message via ITS. Dr. Jeremy Atkinson There is documentation of multipleulcerationsand excoriations to BLE per Consult 01/15. Additional specificity regarding the severity of the wounds is requested. 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 I do recommend furtherevaluationof hisulcerationsdebridementand appropriatewoundcare. Patient would benefit significantly from outpatient podiatricfollow up. Discussed glucose regulation and management and the benefit this would have on hisneuropathicpain. No other podiatric recommendations at this time. Consults: Detailedevalof his pedal digitalulcerationshe does wd showing some signs ofsensationand mildpain. Gross ROM intact to the digits. Strength is 4/5 to all pedal muscle groups crossing ankle joint. RT < LT. No signs of tendinous defect. Please clarify the severity of the wounds: Left Forefoot [ ] Limited to breakdown of skin [ ] With fat layer exposed [ ] Other, Please specify [ ] Unable to determine Left Toes [ ] Limited to breakdown of skin [ ] With fat layer exposed [ ] Other, Please specify [ ] Unable to determine Left Ankle [ ] Limited to breakdown of skin [ ] With fat layer exposed [ ] Other, Please specify [ ] Unable to determine Right Ankle [ ] Limited to breakdown of skin [ ] With fat layer exposed [ ] Other, Please specify [ ] Unable to determine Right Calf [ ] Limited to breakdown of skin [ ] With fat layer exposed [ ] Other, Please specify [ ] Unable to determine (Template Last Revised: November 2020) MTDD
--- NOTE | 2024-01-22 21:12 | CDI ---
Documentation Clarification Form Date: 01/22/2024 09:05:00 PM From: Wanda Salinas Phone: Admit Date: 12/30/2023 04:20:00 PM Patient Name: Emre Borrego Visit Number: [id number] Discharge Date: 01/21/2024 07:14:00 PM ATTENTION: The Clinical Documentation Specialists (CDI) and [facility] Coding Staff appreciate your assistance in clarifying documentation. Please respond to the clarification below the line at the bottom and electronically sign. The CDI & [facility] Coding staff will review the response and follow-up if needed. Please note: Queries are made part of the Legal Health Record. If you have any questions, please contact the author of this message via ITS. Dr. Jeremy Atkinson Cellulitis is documented Consult 12/31. Additional clarification regarding the type of cellulitis is requested. History/risk factors: 68yo M, COPD, CVA, Hx TIA, DM w multiple PAD w pedal ulcerations & neuropathy, HTN, ACHRF, ACDHF, sepsis UTI, BLE cellulitis, osteopenia d/t decrease in ambulation >2yrs Clinical Indicators: bilateral +3edema of lower extremityalong with the chronic skin changes earliererythemasuggestive ofdevelopingcellulitis Treatment: monitored along with DM ulcerations & neuropathy Please clarify the etiology of the cellulitis, if known: [ ] Cellulitis is a diabetic skin complication [ ] Cellulitis is not a diabetic skin complication [ ] Other, please specify: [ ] Unable to determine (Template Last Revised: September 2022) MTDD
--- NOTE | 2024-01-23 15:39 | PN ---
PROGRESS NOTE Wounds are limited to skin breakdown, cellulitis due to vascular ulcers versus diabetic skin condition. MMODL / IJN: [id number] /
--- NOTE | 2024-01-29 08:49 | CDI ---
Documentation Clarification Form Date: 01/29/2024 07:58:48 AM From: Tanisha Lazar RN CCDS Phone: [phone] Admit Date: 12/30/2023 04:20:00 PM Patient Name: Emre Borrego Visit Number: [id number] Discharge Date: 01/21/2024 07:14:00 PM ATTENTION: The Clinical Documentation Specialists (CDI) and [facility] Coding Staff appreciate your assistance in clarifying documentation. Please respond to the clarification below the line at the bottom and electronically sign. The CDI & [facility] Coding staff will review the response and follow-up if needed. Please note: Queries are made part of the Legal Health Record. If you have any questions, please contact the author of this message via ITS. Dr. Shaggy Fry MD Hypotension is documented in the 12/31, Pulmonary consult. Additional clarification regarding this diagnosis is requested. History/Risk Factors: 68-year old male presents to the ED due to severe low hemoglobin of 8. The patient was admitted for acute on chronic CHF. Medical history: Stroke, COVID, HTN, COPD, DM and CHF. 12/29, H&P. Clinical Indicators: Pulmonary consult, 12/31: Acute on chronic hypoxic respiratory failure due to baseline COPD, congestive heart failure with acute exacerbation. Congestive heart failure with acute exacerbation, on diuresis. Hypotension related to above as well as diuresis, will initiate patient on low dose of midodrine. VSS on admission, 12/29 12:48: B/P 144/74; HR 78; Temp 98.2 F Oral; RR 24; SpO2 96% ra 12/31 07:45 B/P 119/48 12/31 14:00 B/P 89/43 12/31 16:11 B/P 119/63 12/31 20:00 B/P 107/55 01/01 06:08 B/P 115/65 01/01 13:20 B/P 122/54 Treatment: 12/31 20:58 dose of Tenormin 50mg po not given due to decreased blood pressure. 12/31 14:43 Midodrine 10mg ordered po AC TID HAROON Can the hypotension be further specified? [ x ] Hypotension secondary to Acute Exacerbation of CHF (Template Last Revised: November 2020) MTDD
== END 2024-01-21 19:14 | DRG 871 ==
LOC: EC 12:44 → EEVIPCON 16:20 → 4SSUR 16:20 → 2SICU 01-17 00:58 → 4SSUR 01-17 20:20
PROVIDERS: ADMIT Family Medicine; ATTEND Family Medicine
PROC: 0DB78ZX Excision of Stomach, Pylorus, Via Natural or Artificial Opening Endoscopic, Diagnostic (ICD-10-PCS; principal; 2024-01-04 07:30)
PROC: 0DJD8ZZ Inspection of Lower Intestinal Tract, Via Natural or Artificial Opening Endoscopic (ICD-10-PCS; 2024-01-07)
DX: A41.59 Other Gram-negative sepsis (principal); G93.41 Metabolic encephalopathy; J96.21 Acute and chronic respiratory failure with hypoxia; I50.33 Acute on chronic diastolic (congestive) heart failure; K57.31 Diverticulosis of large intestine without perforation or abscess with bleeding; J18.9 Pneumonia, unspecified organism; E11.52 Type 2 diabetes mellitus with diabetic peripheral angiopathy with gangrene; J44.1 Chronic obstructive pulmonary disease with (acute) exacerbation; B37.0 Candidal stomatitis; N39.0 Urinary tract infection, site not specified; Z16.11 Resistance to penicillins; Z16.19 Resistance to other specified beta lactam antibiotics; L03.116 Cellulitis of left lower limb; L03.115 Cellulitis of right lower limb; C78.00 Secondary malignant neoplasm of unspecified lung; I70.263 Atherosclerosis of native arteries of extremities with gangrene, bilateral legs; L97.411 Non-pressure chronic ulcer of right heel and midfoot limited to breakdown of skin; J44.0 Chronic obstructive pulmonary disease with (acute) lower respiratory infection; L97.211 Non-pressure chronic ulcer of right calf limited to breakdown of skin; L97.321 Non-pressure chronic ulcer of left ankle limited to breakdown of skin; L97.311 Non-pressure chronic ulcer of right ankle limited to breakdown of skin; E11.621 Type 2 diabetes mellitus with foot ulcer; I27.20 Pulmonary hypertension, unspecified; I50.82 Biventricular heart failure; I11.0 Hypertensive heart disease with heart failure; E11.40 Type 2 diabetes mellitus with diabetic neuropathy, unspecified; E11.622 Type 2 diabetes mellitus with other skin ulcer; E11.65 Type 2 diabetes mellitus with hyperglycemia; I48.91 Unspecified atrial fibrillation; L97.521 Non-pressure chronic ulcer of other part of left foot limited to breakdown of skin; Z99.81 Dependence on supplemental oxygen; D53.9 Nutritional anemia, unspecified; I95.89 Other hypotension; Z53.8 Procedure and treatment not carried out for other reasons; D50.0 Iron deficiency anemia secondary to blood loss (chronic); Z79.01 Long term (current) use of anticoagulants; Z79.891 Long term (current) use of opiate analgesic; I45.10 Unspecified right bundle-branch block; M47.812 Spondylosis without myelopathy or radiculopathy, cervical region; M47.816 Spondylosis without myelopathy or radiculopathy, lumbar region; E78.5 Hyperlipidemia, unspecified; K44.9 Diaphragmatic hernia without obstruction or gangrene; K29.50 Unspecified chronic gastritis without bleeding; B35.1 Tinea unguium; M85.80 Other specified disorders of bone density and structure, unspecified site; T50.2X5A Adverse effect of carbonic-anhydrase inhibitors, benzothiadiazides and other diuretics, initial encounter; G89.29 Other chronic pain; B96.1 Klebsiella pneumoniae [K. pneumoniae] as the cause of diseases classified elsewhere; R59.0 Localized enlarged lymph nodes; R29.6 Repeated falls; Z79.82 Long term (current) use of aspirin; Z79.84 Long term (current) use of oral hypoglycemic drugs; Z79.899 Other long term (current) drug therapy; Z79.51 Long term (current) use of inhaled steroids; Z86.73 Personal history of transient ischemic attack (TIA), and cerebral infarction without residual deficits; Z91.81 History of falling; Z87.891 Personal history of nicotine dependence; Z85.118 Personal history of other malignant neoplasm of bronchus and lung; Z87.440 Personal history of urinary (tract) infections; Z91.198 Patient's noncompliance with other medical treatment and regimen for other reason; Z86.19 Personal history of other infectious and parasitic diseases; Z86.711 Personal history of pulmonary embolism; Z86.718 Personal history of other venous thrombosis and embolism; Z63.8 Other specified problems related to primary support group
CPT/HCPCS: 36415; 36600; 43239; 45378; 70450; 71045; 71046; 71260; 72131; 80053; 81001; 82525; 82607; 82728; 82746; 82805; 83036; 83540; 83550; 83605; 83735; 83880; 83921; 84145; 84443; 84484; 85025; 85027; 85379; 85610; 85730; 86140; 86850; 86900; 86901; 87040; 87077; 87086; 87186; 88305; 93005; 93306; 93923; 94640; 94660; 94760; 96374; 99285